=== PATIENT | female | born 1955 | race Caucasian/White ===

== ENCOUNTER 2020-02-28 07:13 | Outpatient (REF) | payer MEDICARE, MEDICAID, SELFPAY ==
[2020-02-28 12:03] LABS: Alanine Aminotransferase 21 U/L (0-31); Alkaline Phosphatase 49 U/L (39-117); Anion Gap 18 (12-20); Aspartate Amino Transferase 24 U/L (5-31); Bilirubin Total 0.8 mg/dL (0.0-1.0); Blood Urea Nitrogen 24 mg/dL (9-16); Calcium 9.6 mg/dL (8.4-10.2); Carbon Dioxide 27 mmol/L (22-29); Chloride 99 mmol/L (96-108); Cholesterol 221 mg/dL; Estimated Glomerular Filt Rate > 60; Glucose Fasting 117 mg/dL (60-99); HDL Cholesterol 104 mg/dL; LDL Cholesterol Calculated 96 mg/dl; Potassium 3.7 mmol/l (3.3-5.1); Sodium 140 mmol/L (135-145); Total Protein 7.9 g/dL (6.5-8.0); Triglycerides 109 mg/dL
[2020-02-28 12:13] LABS: Vitamin D 25-OH Total 41.6 ng/mL (>30)
== END 2020-02-28 07:14 | disposition home or self-care (01) ==
LOC: HO.HMGCLDS 07:13
PROVIDERS: PCP Internal Medicine; Visit Provider Internal Medicine
DX: I10 Essential (primary) hypertension (principal); E78.5 Hyperlipidemia, unspecified; Z78.0 Asymptomatic menopausal state
CPT/HCPCS: 36415; 80053; 80061; 82306

== ENCOUNTER 2020-03-28 09:12 | Outpatient (REF) | payer MEDICARE, MEDICAID, SELFPAY ==
--- NOTE | ~2020-03-28 | MM_ITS ---
EXAMINATION: BONE DENSITOMETRY CLINICAL INDICATION: Asymptomatic menopausal state. COMPARISON: Baseline BD dated 10/20/2017. TECHNIQUE: Using a [employer] DXA System (software version: 13.1) manufactured by [employer], dual-energy x-ray absorptiometry was performed of the lumbar spine and left hip. The images are of good technical quality. Summary results are attached. FINDINGS: AP SPINE L1-L2 (excluding L3 and L4): The data of L1-L4 has been changed to exclude the L3 and L4 vertebral bodies, because degenerative changes at this level may cause overestimation of lumbar spine density. Current: BMD 0.979 g/cm2, Z-score 0.8, T-score -1.6, osteopenia, 2.9% decrease from baseline (<5% change is not significant). Baseline: BMD 1.008 g/cm2. LEFT FEMUR, NECK: Current: BMD 0.632 g/cm2, Z-score -0.9, T-score -2.9, osteoporosis. Baseline: BMD 0.705 g/cm2. LEFT FEMUR, TOTAL: Current: BMD 0.684 g/cm2, Z-score -0.8, T-score -2.6, osteoporosis, 5.8% decrease from baseline (<5% change is not significant). Baseline: BMD 0.726 g/cm2. IDENTIFIED RISK FACTORS: Family history (parental hip fracture), tobacco use (current smoker), history of fracture (adult). Early menopause, secondary osteoporosis. HISTORY OF FRACTURE: Pelvis. Elbow/forearm/wrist. Humerus/shoulder. MEDICATIONS: Calcium supplements or multivitamin, vitamin D. MM/XR DEXA axial skeleton IMPRESSION: 1. DIAGNOSIS: Osteoporosis based on the lowest T-score value of -2.9 in the femoral neck applying World Health Organization criteria. 2. 10-YEAR FRACTURE RISK PREDICTION, FRAX: Major osteoporotic fracture (clinical spine, forearm, hip or shoulder) 37.3%. Hip fracture 12.5%. 3. Treatment Recommendations: NOF guidelines recommend consideration for treatment in postmenopausal women and men age 50 and older presenting with the following: -A hip or vertebral (clinical or morphometric) fracture. -T-score less than or equal to -2.5 at the femoral neck or spine after appropriate evaluation to exclude secondary causes. -Low bone mass at the hip or spine and a 10-year fracture probability by FRAX of greater than or equal to 3% for hip fracture or greater than or equal to 20% for major osteoporotic fracture based on the [place] adapted WHO algorithm. 4. Other Recommendations: All treatment decisions require clinical judgment and consideration of individual patient factors, including patient preferences, comorbidities, previous drug use, risk factors not captured in the FRAX model (e.g. frailty, falls, vitamin D deficiency, increased bone turnover, interval significant decline in bone density) and possible under or overestimation of fracture risk by FRAX. Additional medical evaluation for secondary cause of low bone mineral density may be appropriate. FUTURE SCAN RECOMMENDATION: People with diagnosed cases of osteoporosis or at high risk for fracture should have regular bone mineral density tests. For patients eligible for Medicare, routine testing is allowed once every 2 years. The testing frequency can be increased to one year for patients who have rapidly progressing disease, those who are receiving or discontinuing medical therapy to restore bone mass, or have additional risk factors.
== END 2020-03-28 09:13 | disposition home or self-care (01) ==
LOC: HO.MAMMO 09:12
PROVIDERS: PCP Internal Medicine; Visit Provider Internal Medicine
DX: M85.89 Other specified disorders of bone density and structure, multiple sites (principal); Z78.0 Asymptomatic menopausal state; F17.200 Nicotine dependence, unspecified, uncomplicated
CPT/HCPCS: 77080

== ENCOUNTER 2020-09-15 08:29 | Outpatient (REF) | payer MEDICARE, MEDICAID, SELFPAY ==
[2020-09-15 11:17] LABS: MANUAL DIFF FLAG NO
[2020-09-15 11:31] LABS: Basophils Absolute Auto 0.1 X10*3/uL (0.0-0.2); Basophils Percent Auto 1.2 % (0-2); Eosinophils Absolute Auto 0.2 X10*3/uL (0.0-0.4); Eosinophils Percent Auto 2.3 % (0-4); Hematocrit 41.5 % (37-47); Hemoglobin 12.7 g/dl (12.0-16.0); Imm Gran Abs Auto 0.02 X10*3/uL (0.00-0.03); Imm Gran Pct Auto 0.3 % (0.0-0.4); Lymphocytes Absolute Auto 1.7 X10*3/uL (1.2-4.9); Lymphocytes Percent Auto 23.6 % (20-40); Mean Corpuscular HGB Conc 30.6 g/dl (31.0-35.0); Mean Corpuscular Hemoglobin 26.7 pg (27.0-33.0); Mean Corpuscular Volume 87.4 fL (80-98); Mean Platelet Volume 9.1 fL (9.4-12.3); Monocytes Absolute Auto 0.6 X10*3/uL (0.1-1.2); Monocytes Percent Auto 8.5 % (2-11); Neutrophils Absolute Auto 4.7 X10*3/uL (2.0-8.3); Neutrophils Percent Auto 64.1 % (45-73); Platelet Count 364 X10*3/uL (160-400); Red Blood Count 4.75 X10*6/uL (4.20-5.50); Red Cell Distribution Width 14.5 % (11.0-16.0); White Blood Count 7.3 X10*3/uL (4.8-10.8)
[2020-09-15 11:33] LABS: Estimated Average Glucose 117 mg/dL; Hemoglobin A1c % 5.7 %
[2020-09-15 12:00] LABS: Vitamin D 25-OH Total 34.7 ng/mL (>30)
[2020-09-15 12:31] LABS: Alanine Aminotransferase 18 U/L (0-31); Albumin Level 4.5 g/dL (3.5-5.0); Alkaline Phosphatase 94 U/L (39-117); Anion Gap 17 (12-20); Aspartate Amino Transferase 21 U/L (5-31); Bilirubin Total 0.4 mg/dL (0.0-1.0); Blood Urea Nitrogen 18 mg/dL (9-16); Calcium 9.6 mg/dL (8.4-10.2); Carbon Dioxide 27 mmol/L (22-29); Chloride 103 mmol/L (96-108); Cholesterol 218 mg/dL; Estimated Glomerular Filt Rate > 60; Glucose Fasting 116 mg/dL (60-99); HDL Cholesterol 102 mg/dL; LDL Cholesterol Calculated 103 mg/dl; Potassium 4.9 mmol/L (3.3-5.1); Sodium 142 mmol/L (135-145); Total Protein 7.9 g/dL (6.5-8.0); Triglycerides 69 mg/dL
== END 2020-09-15 08:30 | disposition home or self-care (01) ==
LOC: HO.HMGCLDS 08:29
PROVIDERS: PCP Internal Medicine; Visit Provider Internal Medicine
DX: E78.5 Hyperlipidemia, unspecified (principal); G25.81 Restless legs syndrome; I10 Essential (primary) hypertension; R73.01 Impaired fasting glucose; M85.89 Other specified disorders of bone density and structure, multiple sites; Z78.0 Asymptomatic menopausal state
CPT/HCPCS: 36415; 80053; 80061; 82306; 83036; 85025

== ENCOUNTER → 2020-10-01 08:18 | Outpatient (BNVA) | payer MEDICARE, MEDICAID, SELFPAY | PROVIDERS: PCP Internal Medicine; Visit Provider Internal Medicine | DX: M81.0 Age-related osteoporosis without current pathological fracture (principal); J44.9 Chronic obstructive pulmonary disease, unspecified; I10 Essential (primary) hypertension; E55.9 Vitamin D deficiency, unspecified; R73.01 Impaired fasting glucose; F17.210 Nicotine dependence, cigarettes, uncomplicated; Z79.899 Other long term (current) drug therapy | CPT/HCPCS: 99202 ==

== ENCOUNTER 2021-01-29 09:03 | Outpatient (REF) | payer MEDICAID, SELFPAY ==
--- NOTE | ~2021-01-29 | XR_ITS ---
EXAMINATION: XR SHOULDER, RIGHT CLINICAL INFORMATION: Shoulder pain COMPARISON: None TECHNIQUE: Right shoulder is imaged in 3 views. FINDINGS: There is no fracture or dislocation or destructive process. The glenohumeral joint is unremarkable. There are mild degenerative changes acromioclavicular joint. The acromioclavicular alignment is normal. There are no visible rotator cuff calcifications. Again, hardware is noted in the lower cervical spine with prior rodding extending beyond field of view. Since prior radiographs 2016 there are postsurgical changes medial apical right hemithorax with chain conrado and benign appearing smooth pleural thickening right apex. XR/XR shoulder RT min 2V IMPRESSION: 1. Mild degenerative changes acromioclavicular joint. 2. No visible rotator cuff calcifications.
== END 2021-01-29 09:04 | disposition home or self-care (01) ==
LOC: HO.HOSX 09:03
PROVIDERS: Visit Provider Orthopaedic Surgery
DX: M75.41 Impingement syndrome of right shoulder (principal)
CPT/HCPCS: 20610; 73030; 99212; J1100

== ENCOUNTER → 2021-04-06 08:18 | Outpatient (BNVA) | payer MEDICAID, SELFPAY | PROVIDERS: PCP Internal Medicine; Visit Provider Internal Medicine ==

== ENCOUNTER 2021-04-08 08:36 | Outpatient (REF) | payer MEDICAID, SELFPAY ==
[2021-04-08 10:37] LABS: Alanine Aminotransferase 12 U/L (0-31); Albumin Level 4.5 g/dL (3.5-5.0); Alkaline Phosphatase 56 U/L (39-117); Anion Gap 16 (12-20); Aspartate Amino Transferase 19 U/L (5-31); Bilirubin Total 0.5 mg/dL (0.0-1.0); Blood Urea Nitrogen 22 mg/dL (9-16); Calcium 9.7 mg/dL (8.4-10.2); Carbon Dioxide 24 mmol/L (22-29); Chloride 107 mmol/L (96-108); Cholesterol 235 mg/dL; Estimated Glomerular Filt Rate > 60; Glucose Random 110 mg/dL (60-115); HDL Cholesterol 90 mg/dL; LDL Cholesterol Calculated 127 mg/dl; Phosphorus 3.6 mg/dL (2.7-4.5); Potassium 4.3 mmol/L (3.3-5.1); Sodium 143 mmol/L (135-145); Total Protein 7.6 g/dL (6.5-8.0); Triglycerides 94 mg/dL
[2021-04-08 10:38] LABS: Thyroid Stimulating Hormone 1.01 uIU/mL (0.32-4.0)
[2021-04-08 10:46] LABS: Free T4 (Free Thyroxine) 1.13 ng/dL (0.71-1.85); Vitamin D 25-OH Total 32.9 ng/mL (>30)
[2021-04-09 14:33] LABS: Calcium (PTHI) 9.7 mg/dL (8.6-10.4); PTHI 44 pg/mL (14-64)
[2021-04-09 14:56] LABS: Calcium, Ionized 4.8 mg/dL (4.8-5.6)
[2021-04-11 17:15] LABS: Alkaline Phosphatase Bone 7.9 mcg/L (5.6-29.0)
[2021-04-13 13:27] LABS: Prot Elec - Albumin 4.5 g/dL (3.8-4.8); Prot Elec - Alpha1 0.3 g/dL (0.2-0.3); Prot Elec - Alpha2 0.8 g/dL (0.5-0.9); Prot Elec - Beta 1 0.5 g/dL (0.4-0.6); Prot Elec - Beta 2 0.3 g/dL (0.2-0.5); Prot Elec - Gamma 1.1 g/dL (0.8-1.7); Prot Elec - Total Protein 7.6 g/dL (6.1-8.1)
== END 2021-04-08 08:37 | disposition home or self-care (01) ==
LOC: HO.LAB 08:36
PROVIDERS: PCP Internal Medicine; Visit Provider Internal Medicine
DX: M81.0 Age-related osteoporosis without current pathological fracture (principal); E78.5 Hyperlipidemia, unspecified; E55.9 Vitamin D deficiency, unspecified
CPT/HCPCS: 36415; 80053; 80061; 82306; 82330; 83970; 84075; 84100; 84165; 84439; 84443

== ENCOUNTER 2021-05-12 11:26 | Outpatient (REF) | payer MEDICAID, SELFPAY ==
--- NOTE | ~2021-05-12 | MM_ITS ---
EXAMINATION: MM SCREENING DIGITAL BREAST TOMOSYNTHESIS, BILATERAL CLINICAL INFORMATION: Screening. Asymptomatic. The lifetime risk of breast cancer based on the Tyrer-Cuzick Model is 3%. COMPARISON: Mammography: 11/07/2019, 11/01/2018, 10/20/2017, 09/10/2016 TECHNIQUE: Digital breast tomosynthesis is performed in both the craniocaudal and mediolateral oblique views along with computer-aided detection (CAD). Synthesized 2D images are generated from the tomosynthesis. FINDINGS: The breasts are heterogeneously dense, which may obscure small masses (ACR BI-RADS breast composition Category c). Parenchymal pattern is similar to prior studies. Some scattered asymmetries are stable. There is no developing density or significant mass or abnormal calcifications. The axilla are unremarkable. The skin contours are smooth. No significant changes. MM/MM tomosynthesis screening BI IMPRESSION: No mammographic evidence of malignancy. ASSESSMENT: BI-RADS 2: Benign RECOMMENDATION: Routine annual mammography screening. This patient's information was entered into a reminder system with a target due date for their next mammogram.
== END 2021-05-12 11:27 | disposition home or self-care (01) ==
LOC: HO.MAMMO 11:26
PROVIDERS: PCP Internal Medicine; Visit Provider Internal Medicine
DX: Z12.31 Encounter for screening mammogram for malignant neoplasm of breast (principal)
CPT/HCPCS: 77063; 77067

== ENCOUNTER 2021-07-20 09:05 | Outpatient (REF) | payer MEDICAID, SELFPAY ==
[2021-07-20 13:06] LABS: Alanine Aminotransferase 15 U/L (0-31); Albumin Level 4.5 g/dL (3.5-5.0); Alkaline Phosphatase 60 U/L (39-117); Anion Gap 17 (12-20); Aspartate Amino Transferase 19 U/L (5-31); Bilirubin Total 0.8 mg/dL (0.0-1.0); Blood Urea Nitrogen 18 mg/dL (9-16); Calcium 9.5 mg/dL (8.4-10.2); Carbon Dioxide 23 mmol/L (22-29); Chloride 105 mmol/L (96-108); Estimated Glomerular Filt Rate > 60; Glucose Random 108 mg/dL (60-115); Phosphorus 3.8 mg/dL (2.7-4.5); Potassium 4.8 mmol/L (3.3-5.1); Sodium 140 mmol/L (135-145); Total Protein 7.7 g/dL (6.5-8.0)
[2021-07-20 13:32] LABS: Vitamin D 25-OH Total 32.4 ng/mL (>30)
[2021-07-21 14:16] LABS: Calcium (PTHI) 9.8 mg/dL (8.6-10.4); PTHI 46 pg/mL (16-77)
== END 2021-07-20 09:06 | disposition home or self-care (01) ==
LOC: HO.HMGCLDS 09:05
PROVIDERS: PCP Internal Medicine; Visit Provider Internal Medicine
DX: E55.9 Vitamin D deficiency, unspecified (principal); M81.0 Age-related osteoporosis without current pathological fracture
CPT/HCPCS: 36415; 80053; 82306; 83970; 84100

== ENCOUNTER 2021-07-21 08:53 | Outpatient (REF) | payer MEDICAID, SELFPAY ==
[2021-07-21 12:53] LABS: Total Volume 24 Hour Urine 350 mL
[2021-07-21 13:10] LABS: Creatinine, 24Hr Urine 0.2 G/Day (1.0-2.0); Creatinine, mg/dL 49.84
[2021-07-23 18:17] LABS: Calcium, 24 Hr Urine 3 mg/24 h; Calcium/Creatinine Ratio 16 mg/g creat (30-275); Creatinine 24Hr Urine 0.18 g/24 h (0.50-2.15)
[2021-07-26 06:16] LABS: N-Telopeptide 44 (see note); NTXCreaRU 212 mg/dL (20-275)
== END 2021-07-21 08:54 | disposition home or self-care (01) ==
LOC: HO.HMGCLNP 08:53
PROVIDERS: Visit Provider Internal Medicine
DX: M81.0 Age-related osteoporosis without current pathological fracture (principal)
CPT/HCPCS: 82340; 82523; 82570

== ENCOUNTER 2021-09-28 08:17 | Outpatient (REF) | payer MEDICAID, SELFPAY ==
[2021-09-28 12:15] LABS: Total Volume 24 Hour Urine 1150 mL
[2021-09-28 12:51] LABS: Creatinine, 24Hr Urine 0.6 G/Day (1.0-2.0); Creatinine, mg/dL 53.42
[2021-09-30 18:06] LABS: Calcium, 24 Hr Urine 52 mg/24 h; Calcium/Creatinine Ratio 83 mg/g creat (30-275); Creatinine 24Hr Urine 0.62 g/24 h (0.50-2.15)
[2021-10-05 20:16] LABS: N-Telopeptide 35 (see note); NTXCreaRU 101 mg/dL (20-275)
== END 2021-09-28 08:18 | disposition home or self-care (01) ==
LOC: HO.HMGCLDS 08:17
PROVIDERS: PCP Internal Medicine; Visit Provider Internal Medicine
DX: M81.0 Age-related osteoporosis without current pathological fracture (principal)
CPT/HCPCS: 82340; 82523; 82570

== ENCOUNTER 2022-02-25 09:33 | Outpatient (REF) | payer MEDICAID, SELFPAY ==
[2022-02-25 11:34] LABS: Alanine Aminotransferase 12 U/L (0-31); Albumin Level 4.5 g/dL (3.5-5.0); Alkaline Phosphatase 53 U/L (39-117); Anion Gap 11 (12-20); Aspartate Amino Transferase 19 U/L (5-31); Bilirubin Total 0.7 mg/dL (0.0-1.0); Blood Urea Nitrogen 24 mg/dL (9-16); Calcium 9.4 mg/dL (8.4-10.2); Carbon Dioxide 27 mmol/L (22-29); Chloride 107 mmol/L (96-108); Cholesterol 232 mg/dL; Estimated Glomerular Filt Rate > 60; Glucose Fasting 106 mg/dL (60-99); Glucose Random 107 mg/dL (60-115); HDL Cholesterol 94 mg/dL; LDL Cholesterol Calculated 119 mg/dl; Phosphorus 3.5 mg/dL (2.7-4.5); Potassium 4.4 mmol/L (3.3-5.1); Sodium 141 mmol/L (135-145); Total Protein 7.4 g/dL (6.5-8.0); Triglycerides 97 mg/dL
[2022-02-25 11:49] LABS: Estimated Average Glucose 117 mg/dL; Hemoglobin A1c % 5.7 %
[2022-02-26 10:48] LABS: Calcium (PTHI) 9.3 mg/dL (8.6-10.4); PTHI 49 pg/mL (16-77)
[2022-03-01 23:39] LABS: Alkaline Phosphatase Bone 7.6 mcg/L (5.6-29.0)
== END 2022-02-25 09:34 | disposition home or self-care (01) ==
LOC: HO.HMGCLDS 09:33
PROVIDERS: PCP Internal Medicine; Visit Provider Internal Medicine
DX: E78.5 Hyperlipidemia, unspecified (principal); R73.01 Impaired fasting glucose; M81.0 Age-related osteoporosis without current pathological fracture; E55.9 Vitamin D deficiency, unspecified; I10 Essential (primary) hypertension
CPT/HCPCS: 36415; 80048; 80053; 80061; 82306; 83036; 83970; 84075; 84100

== ENCOUNTER 2022-03-17 09:33 | Outpatient (AMB) | payer MEDICAID, SELFPAY ==
--- NOTE | 2022-03-17 09:45 | MHC.PC.OV ---
Vital Signs 03/17/22 09:46 Height 4 ft 11 in Weight 89 lb 4 oz BMI 18.0 BP 130/76 Blood Pressure Location Lt brachial Position Sitting Pulse 71 Pulse Source Pulse Oximeter Pulse Oximetry (%) 98 Oxygen Delivery Method Room Air Intake Visit Reasons: Annual Physcial Intake Note: Pt is here today for her PE Allergies No Known Allergies Allergy (Verified 03/17/22 10:29) Medication List - Last Reconciled 03/17/22 by Donna Romero MD albuterol sulfate 90 mcg/actuation inhalation atorvastatin 10 mg PO DAILY cholecalciferol (vitamin D3) 25 mcg PO DAILY pxfnwlfnpjv-odyhmwqiv-nisuxvto 100-62.5-25 mcg inhalation meloxicam 15 mg PO DAILY PRN omeprazole mg PO paroxetine HCl 40 mg PO QAM pramipexole 0.25 mg PO BEDTIME Tobacco use date assessed: 03/17/22 Fall risk assessment: 2 + Falls in past year Last assessed Fall Risk: 03/17/22 [facility] Medical History (Updated 03/17/22 @ 11:01 by Donna Romero MD) Cigarette smoker motivated to quit Colon cancer screening COPD (chronic obstructive pulmonary disease) Dyslipidemia Elbow pain, right Essential hypertension Fall Generalized anxiety disorder Hiatal hernia Impaired fasting glucose Leg cramps Menopause Osteopenia of multiple sites Osteoporosis Polyarthralgia Restless leg syndrome Shoulder pain, right Squamous cell carcinoma Vitamin D deficiency Surgical History History of fusion of cervical spine History of hernia repair S/P partial lobectomy of lung Family History Father Esophageal cancer Mother Cirrhosis HTN (hypertension) Diabetes mellitus Liver problem Brother Mental health disorder Daughter No problems noted. Social History Housing: House Alcohol intake: never Patient Tobacco Use Status: Never used Tobacco Years Smoked: 53 yrs e-Cigarette/Vaping Use: Never Used service: No Current occupational status: disabled Cognitive needs: No Hearing needs: No Vision needs: No Questionnaire PHQ-9 Over the last 2 weeks, how often have you been bothered by any of the following problems? 1. Little interest or pleasure in doing things: not at all 2. Feeling down, depressed, or hopeless: several days 3. Trouble falling or staying asleep, or sleeping too much: nearly every day 4. Feeling tired or having little energy: several days 5. Poor appetite or overeating: nearly every day 6. Feeling bad about yourself - or that you are a failure or have let yourself or your family down: not at all 7. Trouble concentrating on things, such as reading the newspaper or watching television: not at all 8. Moving or speaking so slowly that other people could have noticed. Or the opposite - being so fidgety or restless that you have been moving around a lot more than usual: several days 9. Thoughts that you would be better off or of hurting yourself in some way: not at all Total score: 9 Depression Screening Interpretation: Positive (Declines referral for counseling) Depression Screening Follow-up: Existing condition and In treatment 85371 - PHQ-9 Billing: Yes Source: Developed by Drs. Alexi Yadav, Brenda Barahona, Alonzo Smiley and colleagues, with an educational livia from [employer]. Thrive Questionnaire Declines Thrive assessment: No Date Thrive assessed: 03/17/22 I am a: Patient What is your living situation today?: I have a steady place to live Within the past 12 months, did the food you bought not last and you didn't have the money to get more?: Never true Within the past 12 months, did you worry whether your food would run out before you got money to buy more?: Never true Do you have trouble paying for medicines?: No Do you have trouble getting transportation to medical appointments?: No Do you have trouble paying your heating and electricity bill?: No Do you have trouble taking care of your child, family member or friend?: No Do you have trouble with day-to-day activities such as bathing, preparing meals, shopping, managing finances, etc.?: Yes Are you currently unemployed and looking for a job?: No Are you interested in more education?: No JNEAE-7 AMB Questionnaire JENAE-7 Date JENAE - 7 assessed: 03/17/22 Feeling nervous, anxious, or on edge: 1 = Several days Not being able to stop or control worryin = Not at all Worrying too much about different things: 1 = Several days Trouble relaxin = Not at all Being so restless that it is hard to sit still: 0 = Not at all Becoming easily annoyed or irritable: 1 = Several days Feeling afraid as if something awful might happen: 3 = Nearly every day Total JENAE-7 score (0-4 normal; 5-9 mild; 10-14 moderate; 15-21 severe): 6 Source: Developed by Drs. Alexi Yadav, Brenda Barahona, Alonzo Smiley and colleagues, with an educational livia from [employer]. JENAE-7 Assessment Billing JENAE-7 Assessment Tool: JENAE-7 Assessment 07408 Physical exam (Primary Care) Vital Signs: Last Vital Signs Pulse 71 03/17/22 09:46 BP 130/76 03/17/22 09:46 Pulse Ox 98 03/17/22 09:46 Oxygen Delivery Method Room Air 03/17/22 09:46 BMI result Body Mass Index 18.0 Tobacco/Smoking Status: Tobacco use Status Tobacco use date assessed 03/17/22 03/17/22 09:54 Patient Tobacco Use Status Never used Tobacco 03/17/22 09:54 e-Cigarette/Vaping Use Never Used 03/17/22 09:54 PHQ-9: PHQ-9 Score PHQ-9: Total score 9 03/17/22 11:05 Depression Screening Interpretation: Positive (Declines referral for counseling) Depression Screening Follow-up: Existing condition and In treatment Thrive Assessment: Date of Thrive Assessment Date Thrive assessed 03/17/22 03/17/22 09:54 Cardio Other: S1-S2 present regular rate and rhythm 1+ dorsalis pedis pulse and popliteal tibial pulse bilaterally Bruits: no abdominal aortic bruits GI Inspection: Yes normal to inspection Palpation (GI): No Abdominal aortic bruit present, Soft to palpation, nontender, no guarding and no masses Extrem Other: Hammertoes noted in both feet, thick yellowish discolored toenails in both feet Immunizations pneumoc 20-kenny conj-dip cr(PF) Performing Provider: Donna Romero MD Administered by: Valeria Heller CMA on 03/17/22 11:12 Dose Route Admin Location Lot Number Expiration Date NDC Mucker Operator 0.5 mL IM Left Deltoid [id number] 08/06/22 8487-0465-41 VoAPPsETH/PFIZER VIS Given Date VIS Provided VIS Publication Date 03/17/22 Single Vaccine 21 Eligibility Eligibility Date Funding Source Not [facility] Eligible 03/17/22 Private Assessment and Plan Assessment & Plan (1) Colon cancer screening: Code(s): Z12.11 - Encounter for screening for malignant neoplasm of colon (2) Hiatal hernia: Code(s): K44.9 - Diaphragmatic hernia without obstruction or gangrene (3) Generalized anxiety disorder: Code(s): F41.1 - Generalized anxiety disorder (4) Polyarthralgia: Code(s): M25.50 - Pain in unspecified joint (5) Osteoporosis: Code(s): M81.0 - Age-related osteoporosis without current pathological fracture (6) Restless leg syndrome: Code(s): G25.81 - Restless legs syndrome (7) COPD (chronic obstructive pulmonary disease): Code(s): J44.9 - Chronic obstructive pulmonary disease, unspecified (8) Essential hypertension: Code(s): I10 - Essential (primary) hypertension (9) Impaired fasting glucose: Code(s): R73.01 - Impaired fasting glucose (10) Dyslipidemia: Code(s): E78.5 - Hyperlipidemia, unspecified (11) Annual visit for general adult medical examination with abnormal findings: Code(s): Z00.01 - Encounter for general adult medical examination with abnormal findings Orders: Orders Pneumococcal 20 Immunization Today Z23 - Encounter for immunization Referrals Gastroenterology Referral Z12.11 - Encounter for screening for malignant neoplasm of colon Medications: Refilled nicotine 1 patch transdermal Q24H 28 ea 0RF F17.210 - Nicotine dependence, cigarettes, uncomplicated Coding Level of Care Code Est Pt Prev Care 40-64y(15734) Diagnoses Colon cancer screening Z12.11 Hiatal hernia K44.9 Generalized anxiety disorder F41.1 Polyarthralgia M25.50 Osteoporosis M81.0 Restless leg syndrome G25.81 COPD (chronic obstructive pulmonary disease) J44.9 Essential hypertension I10 Impaired fasting glucose R73.01 Dyslipidemia E78.5 Annual visit for general adult medical examination with abnormal findings Z00.01 Additional Codes JENAE-7 Assessment Billing - JENAE-7 Assessment Tool: JENAE-7 Assessment 38013 ([id number])
[2022-03-17 09:46] VITALS: BP 130/76; PULSE 71; O2SAT 98; BMI 18.0
== END 2022-03-17 10:28 | disposition home or self-care (01) ==
LOC: HO.HMGC 09:33
PROVIDERS: PCP Internal Medicine; Visit Provider Internal Medicine
DX: Z12.11 Encounter for screening for malignant neoplasm of colon (principal); K44.9 Diaphragmatic hernia without obstruction or gangrene; F41.1 Generalized anxiety disorder; M25.50 Pain in unspecified joint; M81.0 Age-related osteoporosis without current pathological fracture; G25.81 Restless legs syndrome; J44.9 Chronic obstructive pulmonary disease, unspecified; I10 Essential (primary) hypertension; R73.01 Impaired fasting glucose; E78.5 Hyperlipidemia, unspecified; Z00.01 Encounter for general adult medical examination with abnormal findings
CPT/HCPCS: 99499

== ENCOUNTER → 2022-04-28 10:15 | Outpatient (BNVA) | payer MEDICAID, SELFPAY | PROVIDERS: PCP Internal Medicine; Visit Provider Nurse Practitioner Family | DX: Z12.11 Encounter for screening for malignant neoplasm of colon (principal) | CPT/HCPCS: 99202 ==

== ENCOUNTER 2022-04-29 09:48 | Outpatient (AMB) | payer MEDICAID, SELFPAY ==
--- NOTE | 2022-04-29 10:51 | MHC.PC.OV ---
Vital Signs 04/29/22 10:52 Height 4 ft 11 in Weight 92 lb 8 oz BMI 18.6 BP 120/76 Blood Pressure Location Lt brachial Position Sitting Pulse 65 Pulse Source Pulse Oximeter Pulse Oximetry (%) 99 Oxygen Delivery Method Room Air Intake Visit Reasons: Pain in arm Intake Note: Patient here due to having severe pain in arm, starts from shoulder and goes down arm and gets some tingling in fingers. she also would like to increase nicotine patch. Allergies No Known Allergies Allergy (Verified 11/15/22 02:07) Medication List - Last Reconciled 11/15/22 by Donna Romero MD albuterol sulfate 90 mcg/actuation inhalation atorvastatin 10 mg PO DAILY cholecalciferol (vitamin D3) 25 mcg PO DAILY jhcfiwsrhlk-dwsgvlhya-czfkcefh 100-62.5-25 mcg inhalation nabumetone 500 mg PO BID PRN nicotine 1 patch transdermal Q24H omeprazole mg PO paroxetine HCl 40 mg PO QAM pramipexole 0.25 mg PO BEDTIME Tobacco use date assessed: 03/17/22 Fall risk assessment: 1 Fall in past year Last assessed Fall Risk: 04/29/22 HPI HPI Comments History of Present Illness Details 67-year-old lady here today complaining of recurrent pain in right shoulder, going down right arm, accompanied by numbness and tingling. This has been present now for the last several weeks and is not getting any better. Denies any history of trauma or heavy exertion She also is trying to quit smoking, has please nicotine patch in the past, would like to get another refill prescription. Currently still smoking but now down to least 1-2 cigarettes a day. [facility] Medical History Tubular adenoma Chronic right shoulder pain Hiatal hernia Colon cancer screening Generalized anxiety disorder Elbow pain, right Shoulder pain, right Polyarthralgia Leg cramps Vitamin D deficiency Squamous cell carcinoma Osteoporosis Menopause Osteopenia of multiple sites Cigarette smoker motivated to quit Restless leg syndrome COPD (chronic obstructive pulmonary disease) Impaired fasting glucose Fall Dyslipidemia Essential hypertension Surgical History Hx of colonoscopy S/P partial lobectomy of lung History of fusion of cervical spine History of hernia repair Family History Father Esophageal cancer Mother Cirrhosis HTN (hypertension) Diabetes mellitus Liver problem Brother Mental health disorder Daughter No problems noted. Social History Housing: House Alcohol intake: never Patient Tobacco Use Status: Current everyday Tobacco user Tobacco use type: Cigarette Cigarettes Per Day: 1 Years Smoked: 50 e-Cigarette/Vaping Use: Never Used service: No Current occupational status: disabled Current occupation: right hand dominant Cognitive needs: No Hearing needs: No Vision needs: No Questionnaire Thrive Questionnaire Date Thrive assessed: 03/17/22 AUDIT C Alcohol Use Questionnaire (AUDIT-C) 1. How often do you have a drink containing alcohol?: Never 3. How often do you have six or more drinks on one occasion?: Never Total Score: 0 JENAE-7 AMB Questionnaire JENAE-7 Date JENAE - 7 assessed: 03/17/22 Source: Developed by Drs. Alexi Yadav, Brenda Barahona, Alonzo Smiley and colleagues, with an educational livia from [employer]. Review of Systems Const Reports no additional complaints ENT Reports no additional complaints Card Denies chest pain at rest, Denies chest pain with activity, Denies rapid heart rate, Denies lightheadedness, Denies dyspnea and Denies dyspnea on exertion Resp Denies cough, Denies dyspnea and Denies dyspnea on exertion GI Reports no additional complaints Musc Reports as per HPI Neuro Reports as per HPI Physical exam (Primary Care) Vital Signs: Last Vital Signs Pulse 65 04/29/22 10:52 BP 120/76 04/29/22 10:52 Pulse Ox 99 04/29/22 10:52 Oxygen Delivery Method Room Air 04/29/22 10:52 BMI result Body Mass Index 18.6 Tobacco/Smoking Status: Tobacco use Status Tobacco use date assessed 03/17/22 04/29/22 10:57 Patient Tobacco Use Status Never used Tobacco 04/29/22 10:57 e-Cigarette/Vaping Use Never Used 04/29/22 10:57 Thrive Assessment: Date of Thrive Assessment Date Thrive assessed 03/17/22 04/29/22 10:57 Const Other: Alert oriented x3, no acute cardiorespiratory distress noted ambulatory normal gait Orientation/consciousness: patient oriented x3 HENMT Face and sinus: Yes face symmetric Mouth: Normal oral and palatal mucosa present, tongue normal and moist mucous membranes Neck Other: Supple with no lymphadenopathy, thyroid gland nonpalpable Resp Auscultation: clear to auscultation bilaterally Cardio Other: S1-S2 present regular rate and rhythm 1+ dorsalis pedis pulse and popliteal tibial pulse bilaterally GI Inspection: Yes normal to inspection Palpation (GI): Soft to palpation, nontender, no guarding and no masses Neuro General: patient oriented x3, tone normal, moves all extremities, Normal light touch and pain sensation and no focal motor deficits Extrem Other: No gross bone deformity or joint swelling seen, has slight tenderness on palpation over right posterior shoulder Assessment and Plan Assessment & Plan (1) Chronic right shoulder pain: Code(s): M25.511 - Pain in right shoulder; G89.29 - Other chronic pain Plan: Ordered x-ray of right shoulder and refer to orthopedics for further evaluation management, (2) Cigarette smoker motivated to quit: Code(s): F17.210 - Nicotine dependence, cigarettes, uncomplicated Plan: Prescription sent for nicotine patch 24 mg, to apply as directed to affected area, rotate sites, remove at night, do not smoke when using patch. Schedule follow-up visit in 4 weeks Orders: Orders XR shoulder RT min 2V 04/29/22 M25.511 - Pain in right shoulder, G89.29 - Other chronic pain Referrals Orthopedics Referral M25.511 - Pain in right shoulder, G89.29 - Other chronic pain Medications: Changed From nicotine 1 patch transdermal Q24H 28 ea 0RF F17.210 - Nicotine dependence, cigarettes, uncomplicated To nicotine 1 patch transdermal Q24H 28 ea 0RF F17.210 - Nicotine dependence, cigarettes, uncomplicated Coding Level of Care Code Est Pt Level 3 (04459) Diagnoses Chronic right shoulder pain M25.511; G89.29 Cigarette smoker motivated to quit F17.210
[2022-04-29 10:52] VITALS: BP 120/76; PULSE 65; O2SAT 99; BMI 18.6
== END 2022-04-29 11:35 | disposition home or self-care (01) ==
LOC: HO.HMGC 09:48
PROVIDERS: PCP Internal Medicine; Visit Provider Internal Medicine
DX: M25.511 Pain in right shoulder (principal); G89.29 Other chronic pain; F17.210 Nicotine dependence, cigarettes, uncomplicated
CPT/HCPCS: 99213

== ENCOUNTER 2022-04-29 11:35 | Outpatient (REF) | payer MEDICAID, SELFPAY ==
--- NOTE | ~2022-04-29 | XR_ITS ---
EXAMINATION: XR SHOULDER, RIGHT CLINICAL INFORMATION: Pain. COMPARISON: Right shoulder 01/29/2021. TECHNIQUE: AP external rotation, Grashey, scapular Y, and axillary views of the right shoulder. FINDINGS: The glenohumeral joint space is maintained normal. Mild loss of AC joint space with spurring is noted. No bony erosive changes. No acute fracture or dislocation. The soft tissues are normal. XR/XR shoulder RT min 2V IMPRESSION: Mild degenerative changes right AC joint. Findings are similar to previous study 01/29/2021.
== END 2022-04-29 11:36 | disposition home or self-care (01) ==
LOC: HO.HMGCX 11:35
PROVIDERS: PCP Internal Medicine; Visit Provider Internal Medicine
DX: M25.511 Pain in right shoulder (principal); G89.29 Other chronic pain
CPT/HCPCS: 73030

== ENCOUNTER → 2022-06-01 08:43 | Outpatient (BNVA) | payer MEDICAID, SELFPAY | PROVIDERS: PCP Internal Medicine; Visit Provider Physician Assistant | DX: M75.41 Impingement syndrome of right shoulder (principal) | CPT/HCPCS: 20610; 99212; J1040 ==

== ENCOUNTER 2022-06-26 10:07 | Outpatient (REF) | payer MEDICAID, SELFPAY ==
--- NOTE | ~2022-06-26 | MM_ITS ---
EXAMINATION: MM SCREENING DIGITAL BREAST TOMOSYNTHESIS, BILATERAL CLINICAL INFORMATION: Screening. Asymptomatic. Family history breast cancer, daughter. The lifetime risk of breast cancer based on the Tyrer-Cuzick Model is 5%. COMPARISON: Mammography: 05/12/2021, 11/07/2019, 11/01/2018 TECHNIQUE: Digital breast tomosynthesis is performed in both the craniocaudal and mediolateral oblique views along with computer-aided detection (CAD). Synthesized 2D images are generated from the tomosynthesis. FINDINGS: The breasts are heterogeneously dense, which may obscure small masses (ACR BI-RADS breast composition Category c). Breast is slightly smaller when compared with prior studies suggesting some interval weight loss. There are scattered minor stable bilateral asymmetries. No developing density or architectural abnormality. There are no significant masses, abnormal calcifications, or other abnormalities. The axilla and skin contours are unremarkable. MM/MM tomosynthesis screening BI IMPRESSION: No significant changes from prior exams. ASSESSMENT: BI-RADS 2: Benign RECOMMENDATION: -Probable weight loss from prior studies. This may be correlated with clinical history. -Routine annual mammography screening. This patient's information was entered into a reminder system with a target due date for their next mammogram.
== END 2022-06-26 10:08 | disposition home or self-care (01) ==
LOC: HO.MAMMO 10:07
PROVIDERS: PCP Internal Medicine; Visit Provider Internal Medicine
DX: Z12.31 Encounter for screening mammogram for malignant neoplasm of breast (principal)
CPT/HCPCS: 77063; 77067

== ENCOUNTER 2022-07-16 09:26 | Outpatient (AMB) | payer MEDICAID, SELFPAY ==
--- NOTE | 2022-07-16 10:09 | MHC.PC.OV ---
Vital Signs 07/16/22 10:14 Height 4 ft 11 in Weight 91 lb 8 oz BMI 18.5 BP 112/76 Blood Pressure Location Lt brachial Position Sitting Pulse 65 Pulse Source Pulse Oximeter Pulse Oximetry (%) 97 Oxygen Delivery Method Room Air Intake Visit Reasons: 4 weeks ffup smoking cessation Intake Note: Pt is here today for her 4 weeks f/u smoking cessation Allergies No Known Allergies Allergy (Verified 09/09/22 09:05) Medication List - Last Reconciled 07/16/22 by Donna Romero MD albuterol sulfate 90 mcg/actuation inhalation atorvastatin 10 mg PO DAILY bisacodyl (Dulcolax (bisacodyl)) 10 mg (2 x 5 mg) PO ONCE 1 day cholecalciferol (vitamin D3) 25 mcg PO DAILY jlhtjvnbnur-suptmrous-pnuqndkj 100-62.5-25 mcg inhalation meloxicam 15 mg PO DAILY PRN nicotine 1 patch transdermal Q24H omeprazole mg PO paroxetine HCl 40 mg PO QAM polyethylene glycol 3350 (Miralax) 238 grams PO ONCE pramipexole 0.25 mg PO BEDTIME Tobacco use date assessed: 07/16/22 Fall risk assessment: No Falls in past year Last assessed Fall Risk: 07/16/22 HPI 4 weeks ffup smoking cessation HPI Details 67-year-old lady here today for follow-up with regards to her smoking cessation currently on nicotine patch 21 mg daily. Tolerate medication well, has quit smoking, ready to go down on her dose of the nicotine patch . He also today for follow-up on her dyslipidemia currently on atorvastatin, has anxiety disorder stable controlled on paroxetine and has restless leg syndrome, controlled with pramipexole. Complains of recurrent pain in her right shoulder, no relief with meloxicam. No history of any injury. Pain is worse when doing overhead motion with her right arm. [facility] Medical History Chronic right shoulder pain Cigarette smoker motivated to quit Colon cancer screening COPD (chronic obstructive pulmonary disease) Dyslipidemia Elbow pain, right Essential hypertension Fall Generalized anxiety disorder Hiatal hernia Impaired fasting glucose Leg cramps Menopause Osteopenia of multiple sites Osteoporosis Polyarthralgia Restless leg syndrome Shoulder pain, right Squamous cell carcinoma Vitamin D deficiency Surgical History History of fusion of cervical spine History of hernia repair S/P partial lobectomy of lung Family History Father Esophageal cancer Mother Cirrhosis HTN (hypertension) Diabetes mellitus Liver problem Brother Mental health disorder Daughter No problems noted. Social History Housing: House Alcohol intake: never Patient Tobacco Use Status: Current someday Tobacco user Cigarettes Per Day: 1 Years Smoked: 53 yrs e-Cigarette/Vaping Use: Never Used service: No Current occupational status: disabled Current occupation: right hand dominant Cognitive needs: No Hearing needs: No Vision needs: No Questionnaire PHQ-9 Over the last 2 weeks, how often have you been bothered by any of the following problems? 1. Little interest or pleasure in doing things: not at all 2. Feeling down, depressed, or hopeless: several days 3. Trouble falling or staying asleep, or sleeping too much: nearly every day 4. Feeling tired or having little energy: several days 5. Poor appetite or overeating: nearly every day 6. Feeling bad about yourself - or that you are a failure or have let yourself or your family down: not at all 7. Trouble concentrating on things, such as reading the newspaper or watching television: not at all 8. Moving or speaking so slowly that other people could have noticed. Or the opposite - being so fidgety or restless that you have been moving around a lot more than usual: several days 9. Thoughts that you would be better off or of hurting yourself in some way: not at all Total score: 9 Depression Screening Interpretation: Positive (Declines referral for counseling) Depression Screening Follow-up: Existing condition and In treatment 25419 - PHQ-9 Billing: Yes Source: Developed by Drs. Alexi Yadav, Brenda Barahona, Alonzo Smiley and colleagues, with an educational livia from [employer]. Thrive Questionnaire Date Thrive assessed: 03/17/22 AUDIT C Alcohol Use Questionnaire (AUDIT-C) 1. How often do you have a drink containing alcohol?: Never Total Score: 0 JENAE-7 AMB Questionnaire JENAE-7 Date JENAE - 7 assessed: 03/17/22 Source: Developed by Drs. Alexi Yadav, Brenda Barahona, Alonzo Smiley and colleagues, with an educational livia from [employer]. Review of Systems Const Denies fatigue, Denies headache(s) and Denies malaise Eyes Reports no additional complaints ENT Denies change in voice, Denies dysphagia, Denies headache(s) and Denies hoarseness Card Denies chest pain, Denies irregular heart rhythm and Denies dyspnea Resp Denies cough and Denies dyspnea GI Denies abdominal pain, Denies change in bowel habits, Denies dysphagia, Denies diarrhea and Denies nausea Musc Reports as per HPI, Denies myalgias, Denies muscle cramps, Denies numbness, Reports stiffness and Denies tingling Skin/Breast Denies rash Neuro Denies headache(s), Denies numbness and Denies tingling Psych Denies anxiety and Denies depression Endo Denies cold intolerance, Denies fatigue and Denies heat intolerance Carlin/Lymph Denies easy bruising Physical exam (Primary Care) Vital Signs: Last Vital Signs Pulse 65 07/16/22 10:14 BP 112/76 07/16/22 10:14 Pulse Ox 97 07/16/22 10:14 Oxygen Delivery Method Room Air 07/16/22 10:14 BMI result Body Mass Index 18.5 Tobacco/Smoking Status: Tobacco use Status Tobacco use date assessed 07/16/22 07/16/22 10:13 Patient Tobacco Use Status Current someday Tobacco 07/16/22 10:33 e-Cigarette/Vaping Use Never Used 07/16/22 10:33 PHQ-9: PHQ-9 Score PHQ-9: Total score 9 07/16/22 10:47 Depression Screening Interpretation: Positive (Declines referral for counseling) Depression Screening Follow-up: Existing condition and In treatment Thrive Assessment: Date of Thrive Assessment Date Thrive assessed 03/17/22 07/16/22 10:13 HENMT Face and sinus: Yes face symmetric Mouth: Normal oral and palatal mucosa present, tongue normal and moist mucous membranes Neck Other: Supple with no lymphadenopathy, thyroid gland nonpalpable Resp Auscultation: clear to auscultation bilaterally Cardio Other: S1-S2 present regular rate and rhythm 1+ dorsalis pedis pulse and popliteal tibial pulse bilaterally GI Inspection: Yes normal to inspection Palpation (GI): Soft to palpation, nontender, no guarding and no masses Extrem Other: Tenderness on palpation over anterior aspect of right shoulder, pain listed on abduction more than 90 degrees Hammertoes noted in both feet, thick yellowish discolored toenails in both feet Psych Appearance: grossly normal Mental Status: mental status grossly normal Speech and movement: Normal speech and movement present Affect: normal affect Attitude: cooperative Thought process: Normal thought process present Thought content: Normal thought content present Assessment and Plan Assessment & Plan (1) Cigarette smoker motivated to quit: Code(s): F17.210 - Nicotine dependence, cigarettes, uncomplicated Plan: Strongly advised to completely quit smoking, will decrease nicotine patch dose to 14 mg per patch to use as directed. Follow up again in 4 weeks (2) Restless leg syndrome: Code(s): G25.81 - Restless legs syndrome Plan: Continue with pramipexole (3) Impaired fasting glucose: Code(s): R73.01 - Impaired fasting glucose Plan: Your fasting blood sugars in the past were elevated above 100 mg/dL. Impaired glucose metabolism O2 at risk for developing diabetes mellitus type 2, as well as heart attack and stroke later on. Lifestyle changes at just weight loss, healthy eating habits, and regular exercise are important, and can prevent the progression to diabetes (4) Dyslipidemia: Code(s): E78.5 - Hyperlipidemia, unspecified Plan: fasting lipid profile ordered . Continue with atorvastatin 80 mg daily , in addition to adherence to low-cholesterol diet and regular exercise, at least 30 minutes 3 to 4 times a week. Advised patient to make healthy food choices, eat more fruits, vegetables, whole grains, wild caught fish and low-fat dairy. Limit amount of meat and fried or fatty food products, as well as processed foods and fast foods. (5) Chronic right shoulder pain: Code(s): M25.511 - Pain in right shoulder; G89.29 - Other chronic pain Plan: Discontinue meloxicam prescription sent for nabumetone to take as directed (6) Generalized anxiety disorder: Code(s): F41.1 - Generalized anxiety disorder Plan: Continue paroxetine 40 mg daily in a.m., declines refer for counseling Orders: Orders Lipid Panel 2 Months M85.89 - Other specified disorders of bone density and structure, multiple sites, G25.81 - Restless legs syndrome, I10 - Essential (primary) hypertension, R73.01 - Impaired fasting glucose, E78.5 - Hyperlipidemia, unspecified, M25.511 - Pain in right shoulder, G89.29 - Other chronic pain, F41.1 - Generalized anxiety disorder Aspartate Amino Transferase 2 Months M85.89 - Other specified disorders of bone density and structure, multiple sites, G25.81 - Restless legs syndrome, I10 - Essential (primary) hypertension, R73.01 - Impaired fasting glucose, E78.5 - Hyperlipidemia, unspecified, M25.511 - Pain in right shoulder, G89.29 - Other chronic pain, F41.1 - Generalized anxiety disorder Basic Metabolic Panel Fasting 2 Months M.89 - Other specified disorders of bone density and structure, multiple sites, G25.81 - Restless legs syndrome, I10 - Essential (primary) hypertension, R73.01 - Impaired fasting glucose, E78.5 - Hyperlipidemia, unspecified, M25.511 - Pain in right shoulder, G89.29 - Other chronic pain, F41.1 - Generalized anxiety disorder Vitamin D 25-OH Total 2 Months M.89 - Other specified disorders of bone density and structure, multiple sites, G25.81 - Restless legs syndrome, I10 - Essential (primary) hypertension, R73.01 - Impaired fasting glucose, E78.5 - Hyperlipidemia, unspecified, M25.511 - Pain in right shoulder, G89.29 - Other chronic pain, F41.1 - Generalized anxiety disorder Complete Blood Count Auto Diff 2 Months M.89 - Other specified disorders of bone density and structure, multiple sites, G25.81 - Restless legs syndrome, I10 - Essential (primary) hypertension, R73.01 - Impaired fasting glucose, E78.5 - Hyperlipidemia, unspecified, M25.511 - Pain in right shoulder, G89.29 - Other chronic pain, F41.1 - Generalized anxiety disorder Alanine Aminotransferase 2 Months M.89 - Other specified disorders of bone density and structure, multiple sites, G25.81 - Restless legs syndrome, I10 - Essential (primary) hypertension, R73.01 - Impaired fasting glucose, E78.5 - Hyperlipidemia, unspecified, M25.511 - Pain in right shoulder, G89.29 - Other chronic pain, F41.1 - Generalized anxiety disorder Medications: New nabumetone 500 mg PO BID PRN 60 tabs 0RF joint pain Changed From nicotine 1 patch transdermal Q24H 28 ea 0RF F17.210 - Nicotine dependence, cigarettes, uncomplicated To nicotine 1 patch transdermal Q24H 28 ea 0RF F17.210 - Nicotine dependence, cigarettes, uncomplicated Discontinued meloxicam Discontinued Reason: Doctor's Order 15 mg PO DAILY PRN 90 tabs 0RF for joint pain M25.50 - Pain in unspecified joint Coding Level of Care Code Est Pt Level 4 (90925) Diagnoses Cigarette smoker motivated to quit F17.210 Restless leg syndrome G25.81 Impaired fasting glucose R73.01 Dyslipidemia E78.5 Chronic right shoulder pain M25.511; G89.29 Generalized anxiety disorder F41.1
[2022-07-16 10:14] VITALS: BP 112/76; PULSE 65; O2SAT 97; BMI 18.5
== END 2022-07-16 10:53 | disposition home or self-care (01) ==
LOC: HO.HMGC 09:26
PROVIDERS: PCP Internal Medicine; Visit Provider Internal Medicine
DX: F17.210 Nicotine dependence, cigarettes, uncomplicated (principal); G25.81 Restless legs syndrome; R73.01 Impaired fasting glucose; E78.5 Hyperlipidemia, unspecified; M25.511 Pain in right shoulder; G89.29 Other chronic pain; F41.1 Generalized anxiety disorder
CPT/HCPCS: 99214

== ENCOUNTER 2022-08-16 10:10 | Outpatient (AMB) | payer MEDICAID, SELFPAY ==
--- NOTE | 2022-08-16 10:10 | MHC.OFFVIS ---
Intake Intake Visit Reasons: F/U Osteoporosis Allergies No Known Allergies Allergy (Verified 08/16/22 10:21) Medication List - Last Reconciled 08/16/22 by Gregoria Brito DO albuterol sulfate 90 mcg/actuation inhalation atorvastatin 10 mg PO DAILY bisacodyl (Dulcolax (bisacodyl)) 10 mg (2 x 5 mg) PO ONCE 1 day cholecalciferol (vitamin D3) 25 mcg PO DAILY eiasnzuhxej-dfoojpoze-vgsjopwz 100-62.5-25 mcg inhalation nabumetone 500 mg PO BID PRN nicotine 1 patch transdermal Q24H omeprazole mg PO paroxetine HCl 40 mg PO QAM polyethylene glycol 3350 (Miralax) 238 grams PO ONCE pramipexole 0.25 mg PO BEDTIME HPI HPI Comments History of Present Illness Details 66 YO Female with PMHx Osteoporosis, who is seen in F/U for Osteoporosis. First diagnosed in 2020, prior to that she had Osteopenia. She was previously on Fosamax weekly. This was started in 2020. After her initial visit with me in November 2020 we stopped her Fosamax and HCTZ and she was asked to complete a full biochemical evaluation for secondary causes of Osteoporosis, and F/U today to review the results. She did stop the Fosamax and HCTZ and did her workup, but unfortunately her urine collection was an insufficient collection with only 350 cc collected. She failed treatment with Fosamax because her BMD has worsened on this. No history of pathologic fracture or ONJ. Has 2-3 servings of dietary calcium per day in the form of milk, cheese and ensure. She does not take a Calcium supplement. Takes 1000 IU of Vitamin D daily. Denies ever using PPI, anticoagulant, antiepileptic or glucocorticoid medication. Does weight bearing exercise 7 days per week in the form of walking and playing with her Grandkids. Fracture history: Had a traumatic fracture of her L arm and pelvis in 1989 when she fell out a window. No fragility fractures. Height loss: Denies ANIMAL TECH history: Menarche was age 15. Menses were always regular. . She did not breastfeed. Menopause was age 54. She did not use HRT. Denies history of Kidney stones: Denies family history of Osteoporosis or hip fracture. UTD on dental cleanings and sees dentist every 6 months. No planned upcoming dental work or extractions. Of note, she was recently diagnosed with squamous cell carcinoma of the lung and underwent surgical resection. She states there is no plan for chemo or radiation at this time. DXA dated 03/28/2020: FINDINGS: AP SPINE L1-L2 (excluding L3 and L4): The data of L1-L4 has been changed to exclude the L3 and L4 vertebral bodies, because degenerative changes at this level may cause overestimation of lumbar spine density. Current: BMD 0.979 g/cm2, Z-score 0.8, T-score -1.6, osteopenia, 2.9% decrease from baseline (<5% change is not significant). Baseline: BMD 1.008 g/cm2. LEFT FEMUR, NECK: Current: BMD 0.632 g/cm2, Z-score -0.9, T-score -2.9, osteoporosis. Baseline: BMD 0.705 g/cm2. LEFT FEMUR, TOTAL: Current: BMD 0.684 g/cm2, Z-score -0.8, T-score -2.6, osteoporosis, 5.8% decrease from baseline (<5% change is not significant). Baseline: BMD 0.726 g/cm2. Labs: Laboratory Tests 04/08/21 07/20/21 07/20/21 09:03 09:23 09:23 Creatinine 0.78 Estimated GFR > 60 PEP Interpretation SEE NOTE N-Telopeptide X-li nked 25-OH Vitamin D To sravani 32.4 PTH Intact 46 Calcium (PTH Intac t) 9.8 07/21/21 08:30 Creatinine Estimated GFR PEP Interpretation N-Telopeptide X-li nked 44 25-OH Vitamin D To sravani PTH Intact Calcium (PTH Intac t) [facility] Medical History Chronic right shoulder pain Cigarette smoker motivated to quit Colon cancer screening COPD (chronic obstructive pulmonary disease) Dyslipidemia Elbow pain, right Essential hypertension Fall Generalized anxiety disorder Hiatal hernia Impaired fasting glucose Leg cramps Menopause Osteopenia of multiple sites Osteoporosis Polyarthralgia Restless leg syndrome Shoulder pain, right Squamous cell carcinoma Vitamin D deficiency Surgical History History of fusion of cervical spine History of hernia repair S/P partial lobectomy of lung Family History Father Esophageal cancer Mother Cirrhosis HTN (hypertension) Diabetes mellitus Liver problem Brother Mental health disorder Daughter No problems noted. Social History Housing: House Alcohol intake: never Patient Tobacco Use Status: Current someday Tobacco user Cigarettes Per Day: 1 Years Smoked: 53 yrs e-Cigarette/Vaping Use: Never Used service: No Current occupational status: disabled Current occupation: right hand dominant Cognitive needs: No Hearing needs: No Vision needs: No Assessment & Plan Assessment & Plan (1) Osteoporosis: Code(s): M81.0 - Age-related osteoporosis without current pathological fracture Plan: Patient with Osteoporosis of the hip, and Osteopenia of the spine. She has failed treatment with Fosamax as her BMD has worsened while on Fosamax. She is now off the Fosamax and HCTZ. Labs did reveal normal SPEP and no evidence of hyperparathyroidism. Her 24 hour urine collection was unfortunately inadequate. Plan for now is to repeat this as well as blood work. We will also repeat her DXA at this time. She will then F/U in 3 months time to review and determine the next steps in her management. We reviewed fall prevention today, and I did advise her she is at high risk for a hip fracture. All of her questions were answered. She is in agreement with this plan of care. I spent 20 minutes in reviewing the record, seeing the patient and documenting in the medical record, including 5 minutes on the phone with the Patient. (2) Vitamin D deficiency: Code(s): E55.9 - Vitamin D deficiency, unspecified Plan: Vitamin D remains at goal. No changes. Orders: Orders Comprehensive Met. Panel Today M81.0 - Age-related osteoporosis without current pathological fracture Phosphorus Today M81.0 - Age-related osteoporosis without current pathological fracture PTHI Today M81.0 - Age-related osteoporosis without current pathological fracture Vitamin D 25-OH Total Today E55.9 - Vitamin D deficiency, unspecified Collagen Crosslinks NTX Today M81.0 - Age-related osteoporosis without current pathological fracture Calcium, 24 Hr Ur Today M81.0 - Age-related osteoporosis without current pathological fracture Creatinine, 24 Hr Group Today M81.0 - Age-related osteoporosis without current pathological fracture XR DEXA appendicular skeleton Today M81.0 - Age-related osteoporosis without current pathological fracture XR DEXA axial skeleton Today M81.0 - Age-related osteoporosis without current pathological fracture Telehealth Telehealth Location of provider rendering services: practice address Location of patient: address on file Patient Identification confirmed using: Name, : Yes Telehealth method: voice only Patient verbally consented to treatment: Yes Patient verbally consented to billing insurance company: Yes Patient informed of any privacy concerns related to visit: Yes Coding Level of Care Code Tele Est Pt Level 3 (51440) Diagnoses Osteoporosis M81.0 Vitamin D deficiency E55.9
== END 2022-08-16 10:32 | disposition home or self-care (01) ==
LOC: HO.ENCR 10:10
PROVIDERS: PCP Internal Medicine; Visit Provider Internal Medicine
DX: M81.0 Age-related osteoporosis without current pathological fracture (principal); E55.9 Vitamin D deficiency, unspecified
CPT/HCPCS: 99213

== ENCOUNTER → 2022-08-16 10:10 | Outpatient (BNVA) | payer MEDICAID, SELFPAY | PROVIDERS: PCP Internal Medicine; Visit Provider Internal Medicine ==

== ENCOUNTER 2022-09-09 08:12 | Outpatient (AMB) | payer MEDICAID, SELFPAY ==
[2022-09-09 08:38] VITALS: BP 130/80; PULSE 73; O2SAT 96; BMI 18.4
--- NOTE | 2022-09-09 08:38 | MHC.PC.OV ---
Vital Signs 09/09/22 08:38 Height 4 ft 11 in Weight 91 lb BMI 18.4 BP 130/80 Blood Pressure Location Lt brachial Position Sitting Pulse 73 Pulse Source Pulse Oximeter Pulse Oximetry (%) 96 Oxygen Delivery Method Room Air Intake Visit Reasons: 2 month follow up Intake Note: Pt is here today for her 2 months f/u Allergies No Known Allergies Allergy (Verified 09/09/22 09:05) Medication List - Last Reconciled 09/09/22 by Donna Romero MD albuterol sulfate 90 mcg/actuation inhalation atorvastatin 10 mg PO DAILY cholecalciferol (vitamin D3) 25 mcg PO DAILY vsnbdytqebh-oxprpiyoz-ywuqjwpx 100-62.5-25 mcg inhalation nabumetone 500 mg PO BID PRN nicotine 1 patch transdermal Q24H omeprazole mg PO paroxetine HCl 40 mg PO QAM pramipexole 0.25 mg PO BEDTIME Tobacco use date assessed: 09/09/22 Fall risk assessment: No Falls in past year Last assessed Fall Risk: 09/09/22 Dental Screening Dental Screen Date: 09/09/22 Did you have a dental visit in the last 12 months?: No Was dental information given to patient?: No HPI 2 month follow up HPI Details 67-year-old lady here today for follow-up. She has been trying to quit smoking, started on nicotine patches, down to 40 mg per patch, initially successful including, but now smokes about 2-3 cigarettes a week again. Patient states that she has been under lot of stress lately as her brother is currently admitted at ICU in [facility] and not doing very well. She is also here to follow-up on her lipids, generalized anxiety disorder and Arlette clothes legs syndrome, currently on atorvastatin, paroxetine and pramipexole respectively. Has been taking her medication, tries to follow recommended diet, but has not yet had her fast fasting labs done which has already been ordered. [facility] Medical History (Updated 09/09/22 @ 13:19 by Donna Romero MD) Chronic right shoulder pain Cigarette smoker motivated to quit Colon cancer screening COPD (chronic obstructive pulmonary disease) Dyslipidemia Elbow pain, right Essential hypertension Fall Generalized anxiety disorder Hiatal hernia Impaired fasting glucose Leg cramps Menopause Osteopenia of multiple sites Osteoporosis Polyarthralgia Restless leg syndrome Shoulder pain, right Squamous cell carcinoma Vitamin D deficiency Surgical History History of fusion of cervical spine History of hernia repair S/P partial lobectomy of lung Family History Father Esophageal cancer Mother Cirrhosis HTN (hypertension) Diabetes mellitus Liver problem Brother Mental health disorder Daughter No problems noted. Social History Housing: House Alcohol intake: never Patient Tobacco Use Status: Current someday Tobacco user Cigarettes Per Day: 1 Years Smoked: 53 yrs e-Cigarette/Vaping Use: Never Used service: No Current occupational status: disabled Current occupation: right hand dominant Cognitive needs: No Hearing needs: No Vision needs: No Questionnaire Thrive Questionnaire Date Thrive assessed: 03/17/22 JENAE-7 AMB Questionnaire JENAE-7 Date JENAE - 7 assessed: 03/17/22 Source: Developed by Drs. Alexi Yadav, Brenda Barahona, Alonzo Smiley and colleagues, with an educational livia from [employer]. Review of Systems Const Denies fatigue, Denies headache(s) and Denies malaise ENT Denies change in voice, Denies dysphagia, Denies headache(s) and Denies hoarseness Card Denies chest pain, Denies irregular heart rhythm and Denies dyspnea Resp Denies cough and Denies dyspnea GI Denies abdominal pain, Denies change in bowel habits, Denies dysphagia, Denies diarrhea and Denies nausea Musc Denies myalgias, Denies muscle cramps, Denies numbness, Reports stiffness and Denies tingling Skin/Breast Denies rash Neuro Denies headache(s), Denies numbness and Denies tingling Psych Denies anxiety and Denies depression Endo Denies cold intolerance, Denies fatigue and Denies heat intolerance Physical exam (Primary Care) Vital Signs: Last Vital Signs Pulse 73 09/09/22 08:38 BP 130/80 09/09/22 08:38 Pulse Ox 96 09/09/22 08:38 Oxygen Delivery Method Room Air 09/09/22 08:38 BMI result Body Mass Index 18.4 Tobacco/Smoking Status: Tobacco use Status Tobacco use date assessed 09/09/22 09/09/22 08:44 Patient Tobacco Use Status Current someday Tobacco 09/09/22 08:40 e-Cigarette/Vaping Use Never Used 09/09/22 08:40 Thrive Assessment: Date of Thrive Assessment Date Thrive assessed 03/17/22 09/09/22 08:40 Const Other: Alert oriented x3, no acute cardiorespiratory distress noted ambulatory normal gait HENMT Face and sinus: Yes face symmetric Mouth: Normal oral and palatal mucosa present, tongue normal and moist mucous membranes Neck Other: Supple with no lymphadenopathy, thyroid gland nonpalpable Resp Auscultation: clear to auscultation bilaterally Cardio Other: S1-S2 present regular rate and rhythm 1+ dorsalis pedis pulse and popliteal tibial pulse bilaterally GI Inspection: Yes normal to inspection Palpation (GI): Soft to palpation, nontender, no guarding and no masses Psych Appearance: grossly normal Mental Status: mental status grossly normal Speech and movement: Normal speech and movement present Affect: normal affect Attitude: cooperative Thought process: Normal thought process present Thought content: Normal thought content present Immunizations pneumoc 20-kenny conj-dip cr(PF) Performing Provider: Donna Romero MD Administered by: Valeria Heller CMA on 09/09/22 09:31 Dose Route Admin Location Lot Number Expiration Date NDC Insurance Account Executive 0.5 mL IM Left Deltoid [id number] 11/07/23 1230-9918-53 [employer] VIS Given Date VIS Provided VIS Publication Date 09/09/22 Single Vaccine 21 Eligibility Eligibility Date Funding Source Not [facility] Eligible 09/09/22 Private Assessment and Plan Assessment & Plan (1) Cigarette smoker motivated to quit: Code(s): F17.210 - Nicotine dependence, cigarettes, uncomplicated Plan: Strongly encouraged to continue trying to quit smoking, still has patches, resume using it as soon as ready to quit again. (2) Restless leg syndrome: Code(s): G25.81 - Restless legs syndrome Plan: Stable and controlled on pramipexole (3) Dyslipidemia: Code(s): E78.5 - Hyperlipidemia, unspecified Plan: Continue with atorvastatin 10 mg daily, get fasting labs done already ordered (4) Generalized anxiety disorder: Code(s): F41.1 - Generalized anxiety disorder Plan: Stable controlled on paroxetine 40 mg daily (5) Need for pneumococcal 20-valent conjugate vaccination: Code(s): Z23 - Encounter for immunization Orders: Orders Pneumococcal 20 Immunization Today Z23 - Encounter for immunization Patient Instructions: Prevnar 20 given today Coding Level of Care Code Est Pt Level 3 (04074) Diagnoses Cigarette smoker motivated to quit F17.210 Restless leg syndrome G25.81 Dyslipidemia E78.5 Generalized anxiety disorder F41.1 Need for pneumococcal 20-valent conjugate vaccination Z23
== END 2022-09-09 10:00 | disposition home or self-care (01) ==
PROVIDERS: PCP Internal Medicine; Visit Provider Internal Medicine
DX: G25.81 Restless legs syndrome (principal); E78.5 Hyperlipidemia, unspecified; F17.210 Nicotine dependence, cigarettes, uncomplicated; Z23 Encounter for immunization; F41.1 Generalized anxiety disorder
CPT/HCPCS: 90471; 90677; 99213

== ENCOUNTER 2022-09-14 07:47 | Outpatient (REF) | payer MEDICAID, SELFPAY ==
[2022-09-14 11:32] LABS: MANUAL DIFF FLAG NO
[2022-09-14 11:44] LABS: Basophils Absolute Auto 0.1 X10*3/uL (0.0-0.2); Basophils Percent Auto 1.6 % (0-2); Eosinophils Absolute Auto 0.1 X10*3/uL (0.0-0.4); Eosinophils Percent Auto 1.8 % (0-4); Hematocrit 47.9 % (37.0-47.0); Hemoglobin 15.2 g/dl (12.0-16.0); Imm Gran Abs Auto 0.03 X10*3/uL (0.00-0.03); Imm Gran Pct Auto 0.4 % (0.0-0.4); Lymphocytes Absolute Auto 1.9 X10*3/uL (1.2-4.9); Lymphocytes Percent Auto 25.4 % (20-40); Mean Corpuscular HGB Conc 31.7 g/dl (31.0-35.0); Mean Corpuscular Hemoglobin 30.6 pg (27.0-33.0); Mean Corpuscular Volume 96.4 fL (80.0-98.0); Mean Platelet Volume 10.3 fL (9.4-12.3); Monocytes Absolute Auto 0.6 X10*3/uL (0.1-1.2); Monocytes Percent Auto 8.5 % (2-11); Neutrophils Absolute Auto 4.6 x10*3/uL (2.0-8.3); Neutrophils Percent Auto 62.3 % (45-73); Platelet Count 249 X10*3/uL (160-400); Red Blood Count 4.97 X10*6/uL (4.20-5.50); Red Cell Distribution Width 13.3 % (11.0-16.0); White Blood Count 7.4 X10*3/uL (4.8-10.8)
[2022-09-14 13:15] LABS: Alanine Aminotransferase 17 U/L (0-31); Albumin Level 4.3 g/dL (3.5-5.0); Alkaline Phosphatase 62 U/L (39-117); Anion Gap 13 (12-20); Aspartate Amino Transferase 21 U/L (5-31); Bilirubin Total 0.6 mg/dL (0.0-1.0); Blood Urea Nitrogen 17 mg/dL (9-16); Calcium 9.9 mg/dL (8.4-10.2); Carbon Dioxide 26 mmol/L (22-29); Chloride 107 mmol/L (96-108); Cholesterol 212 mg/dL; Estimated Glomerular Filt Rate > 60; Glucose Fasting 101 mg/dL (60-99); Glucose Random 100 mg/dL (60-115); HDL Cholesterol 95 mg/dL; LDL Cholesterol Calculated 102 mg/dl; Phosphorus 3.8 mg/dL (2.7-4.5); Potassium 4.3 mmol/L (3.3-5.1); Sodium 142 mmol/L (135-145); Total Protein 7.6 g/dL (6.5-8.0); Triglycerides 79 mg/dL
[2022-09-14 13:26] LABS: Vitamin D 25-OH Total 41.1 ng/mL (>30)
[2022-09-16 22:09] LABS: Calcium (PTHI) 9.7 mg/dL (8.6-10.4); PTHI 30 pg/mL (16-77)
== END 2022-09-14 07:48 | disposition home or self-care (01) ==
LOC: HO.HMGCLDS 07:47
PROVIDERS: Absent Provider Internal Medicine; PCP Internal Medicine; Visit Provider Internal Medicine
DX: F41.1 Generalized anxiety disorder (principal); E78.5 Hyperlipidemia, unspecified; G25.81 Restless legs syndrome; G89.29 Other chronic pain; I10 Essential (primary) hypertension; M25.511 Pain in right shoulder; M85.89 Other specified disorders of bone density and structure, multiple sites; R73.01 Impaired fasting glucose; M81.0 Age-related osteoporosis without current pathological fracture; E55.9 Vitamin D deficiency, unspecified
CPT/HCPCS: 36415; 80048; 80053; 80061; 82306; 83970; 84100; 85025

== ENCOUNTER 2022-09-29 07:41 | Day surgery (SDC) | payer MEDICAID, SELFPAY ==
[2022-09-27 12:36] VITALS: BMI 18.4
--- NOTE | 2022-09-28 10:59 | HO.ANESPROP2 ---
Documented by User: Chary Guy NP 09/28/22 11:00 HPI - Anesthesia Eval Consult details Narrative: 67yo F for Colonoscopy PMFSH Active Problems Active Problems: All Active Problems (Updated 09/09/22 @ 13:19 by Donna Romero MD) Chronic right shoulder pain (Acute) Hiatal hernia (Acute) Generalized anxiety disorder (Acute) Polyarthralgia (Acute) Leg cramps (Acute) Vitamin D deficiency (Acute) Squamous cell carcinoma (Acute) Osteoporosis (Acute) Needs flu shot (Acute) Menopause (Acute) Osteopenia of multiple sites (Acute) Cigarette smoker motivated to quit (Acute) Restless leg syndrome (Acute) COPD (chronic obstructive pulmonary disease) (Acute) Essential hypertension (Acute) Impaired fasting glucose (Acute) Dyslipidemia (Acute) Past Medical History Medical History (Updated 09/09/22 @ 13:19 by Donna Romero MD) Chronic right shoulder pain Cigarette smoker motivated to quit Colon cancer screening COPD (chronic obstructive pulmonary disease) Dyslipidemia Elbow pain, right Essential hypertension Fall Generalized anxiety disorder Hiatal hernia Impaired fasting glucose Leg cramps Menopause Osteopenia of multiple sites Osteoporosis Polyarthralgia Restless leg syndrome Shoulder pain, right Squamous cell carcinoma Vitamin D deficiency Family History Family History Father Esophageal cancer Mother Cirrhosis HTN (hypertension) Diabetes mellitus Liver problem Brother Mental health disorder Daughter No problems noted. Surgical History Surgical History History of fusion of cervical spine History of hernia repair S/P partial lobectomy of lung Social History Social History Housing: House Alcohol intake: never Patient Tobacco Use Status: Current someday Tobacco user Cigarettes Per Day: 1 Years Smoked: 53 yrs e-Cigarette/Vaping Use: Never Used Advance Directives: No Advance Directives Information Provided: Yes service: No Current occupational status: disabled Current occupation: right hand dominant Cognitive needs: No Hearing needs: No Vision needs: No Meds Allergies Allergy/AdvReac Type Severity Reaction Status Date / Time No Known Allergies Allergy Verified 09/09/22 09:05 Home Medications Medication Instructions Recorded Confirmed Last Taken Type albuterol sulfate 90 mcg/actuation inhalation 03/06/20 08/16/22 Unknown History aerosol inhaler fluticasone fur. 100 mcg-umeclid inhalation 03/06/20 08/16/22 Unknown History 62.5 mcg-vilant 25 mcg inhalat.powder omeprazole 20 mg capsule,delayed mg PO 03/17/22 08/16/22 Unknown History release Exam Exam Date and Time: September 28, 2022 1059 Height,Weight and Vital Signs: Height 4 ft 11 in Weight 41.277 kg Assessment and Plan Assessment Anesthesia Assessment: Chart Reviewed Documented by User: Prabhu Pham MD 09/29/22 07:57 PMFSH Past Medical History Medical History (Updated 09/09/22 @ 13:19 by Donna Romero MD) Chronic right shoulder pain Cigarette smoker motivated to quit Colon cancer screening COPD (chronic obstructive pulmonary disease) Dyslipidemia Elbow pain, right Essential hypertension Fall Generalized anxiety disorder Hiatal hernia Impaired fasting glucose Leg cramps Menopause Osteopenia of multiple sites Osteoporosis Polyarthralgia Restless leg syndrome Shoulder pain, right Squamous cell carcinoma Vitamin D deficiency Family History Family History Father Esophageal cancer Mother Cirrhosis HTN (hypertension) Diabetes mellitus Liver problem Brother Mental health disorder Daughter No problems noted. Family history of problems with anesthesia: No Surgical History Surgical History History of fusion of cervical spine History of hernia repair S/P partial lobectomy of lung History of Problems with Anesthesia: No Social History Social History Housing: House Alcohol intake: never Patient Tobacco Use Status: Current someday Tobacco user Cigarettes Per Day: 1 Years Smoked: 53 yrs e-Cigarette/Vaping Use: Never Used Advance Directives: No Advance Directives Information Provided: Yes service: No Current occupational status: disabled Current occupation: right hand dominant Cognitive needs: No Hearing needs: No Vision needs: No Meds Allergies Allergy/AdvReac Type Severity Reaction Status Date / Time No Known Allergies Allergy Verified 09/09/22 09:05 Home Medications Medication Instructions Recorded Confirmed Last Taken Type albuterol sulfate 90 mcg/actuation inhalation 03/06/20 08/16/22 Unknown History aerosol inhaler fluticasone fur. 100 mcg-umeclid inhalation 03/06/20 08/16/22 Unknown History 62.5 mcg-vilant 25 mcg inhalat.powder omeprazole 20 mg capsule,delayed mg PO 03/17/22 08/16/22 Unknown History release Exam Airway Mallampati Class: II TM Dist: <=3cm Neck ROM: Limited Heart: rrr Lungs: cta Assessment and Plan Assessment Anesthesia Assessment: Anesthesia Plan Discussed Final Anesthetic Review Family History of Problems with Anesthesia: No History of Problems with Anesthesia: No NPO: Yes ASA Class: III Final Preanesthetic Review: No Changes in Pt Med Stat, Meds/Allgs Chart Reviewed, Consent Obtained/Reviewed and Anes Risks/Benef Reviewed Patient Risk: Intermediate Procedure Risk: Low Anesthetic Plan Anesthetic Plan: MAC: and Agree w/ Assess. and Plan Disposition: Standard PACU
[2022-09-29 08:19] VITALS: BP 125/81; PULSE 68; RESP 16; TEMP 36.4; O2SAT 97; BMI 18.4
[2022-09-29] MEDS: Lactated Ringers 1,000 ML 100 ML IVCONT (08:41)
--- NOTE | 2022-09-29 09:06 | MHC.SHP ---
Pre-Procedural Eval Section A Date of Service: 09/29/22 Section B Chief Complaint: Encounter for screening for malignant neoplasm Relevant Family History (Specify if Yes): No Relevant Social History: Tobacco Use Present Medications: see Short Stay Collaborative assessment Medical History: Significant History (Chronic right shoulder pain Cigarette smoker motivated to quit Colon cancer screening COPD (chronic obstructive pulmonary disease) Dyslipidemia Elbow pain, right Essential hypertension Fall Generalized anxiety disorder Hiatal hernia Impaired fasting glucose Leg cramps Menopause Osteopenia of multipl) History of Previous Operations: Relevant previous surgery/procedure and date(s) (History of fusion of cervical spine History of hernia repair S/P partial lobectomy of lung) Allergies: Allergies Allergy/AdvReac Type Severity Reaction Status Date / Time No Known Allergies Allergy Verified 09/09/22 09:05 Review of Systems Sugical H&P ROS: Negative: Constitution, Cardiovascular, Respiratory, Neurological, Psychiatric, Hem-Onc, Allergic/Immunologic, Gastrointestinal, Genitourinary, Musculoskeletal, Integumentary, Endocrine and Eyes/Ears/Nose/Throat Exam Surgical H&P Exam: Normal: HEENT, Normal: Heart, Normal: Lungs, Normal: Extremities, Normal: Abdomen, Normal: Skin and Normal: Neurological Plan Diagnosis/Plan: Unchanged I have reviewed the history and physical and performed a pertinent physical examination on my patient. No changes have occurred unless specified. Time Spent With Patient Time: Total time managing care of this patient today ____ minutes.
--- NOTE | 2022-09-29 09:07 | W.PM.OPN ---
Operative Note Operative Note Date of Service: 09/29/22 Narrative: Operative Information Procedure Description: Colonoscopy Indication: hx of colon polyps Anesthesia: MAC COLONOSCOPY Instrument: Olympus variable stiffness pediatric scope 190L Colonoscopy Monitoring: Vital signs and clinical assessment, continuous EKG monitoring, Pulse oximetry, Carbon Dioxide monitoring and blood pressure monitoring were done throughout the procedure. Colon withdrawal time was 15 minutes. Procedure: The patient was placed in the left lateral decubitis position and pre-procedure medications were administered. After a digital rectal examination of the ano-rectum, the video colonoscope was inserted into the rectum and advanced through the colon to the cecum/TI. The colonoscope was slowly withdrawn in a retrograde panoramic fashion and the colon mucosa was carefully examined including a retroflexed view of the rectum. Findings and interventions are described below. Procedure Difficulty: moderate Findings: Terminal Ileum-normal Cecum:normal Ascending Colon: normal Transverse Colon -normal Descending Colon: 10 mm sessile polyp removed with cold snare Sigmoid Colon: normal Rectum: Retroflexion with small internal hemorrhoids, grade I, 8-10 mm sessile polyp removed with cold snare Anorectum - normal Colon preparation: [place] Bowel Preparation Scale Right colon; 1-2 Transverse colon: 2 Left colon; 2 (0 = Unprepared colon segment with mucosa not seen due to solid stool that cannot be cleared. 1 = Portion of mucosa of the colon segment seen, but other areas of the colon segment not well seen due to staining, residual stool and/or opaque liquid. 2 = Minor amount of residual staining, small fragments of stool and/or opaque liquid, but mucosa of colon segment seen well. 3 = Entire mucosa of colon segment seen well with no residual staining, small fragments of stool or opaque liquid) Impression and Post Procedure Diagnosis: polyps internal hemorrhoids Plan: High fiber diet leaflet Avoid straining at stool, epsom salts and sitz bath, anusol supps or cream Repeat Colonoscopy in 5 years due to fair pre on right or earlier if clinically indicated Above findings were reviewed with the patient and relevant handouts were provided if indicated.
[2022-09-29 09:55] VITALS: BP 79/49; PULSE 115; RESP 16; TEMP 36.1; O2SAT 97
[2022-09-29 10:00] VITALS: BP 88/49
[2022-09-29 10:10] VITALS: BP 102/69; PULSE 104; RESP 16; TEMP 36.2; O2SAT 96
[2022-09-29 10:23] VITALS: BP 113/58; PULSE 90; RESP 16; TEMP 36.2; O2SAT 97
== END 2022-09-29 11:00 | disposition home or self-care (01) ==
PROVIDERS: PCP Internal Medicine; Visit Provider Internal Medicine Gastroenterology
PROC: 0DJD8ZZ Inspection of Lower Intestinal Tract, Via Natural or Artificial Opening Endoscopic (ICD-10-PCS; CPT 45378; principal; 2022-09-29 09:20)
DX: Z12.11 Encounter for screening for malignant neoplasm of colon (principal); Z86.010 Personal history of colon polyps; D12.4 Benign neoplasm of descending colon; K62.1 Rectal polyp; K57.30 Diverticulosis of large intestine without perforation or abscess without bleeding; K64.0 First degree hemorrhoids; K44.9 Diaphragmatic hernia without obstruction or gangrene; J44.9 Chronic obstructive pulmonary disease, unspecified; E78.5 Hyperlipidemia, unspecified; I10 Essential (primary) hypertension; R73.01 Impaired fasting glucose; M85.89 Other specified disorders of bone density and structure, multiple sites; F41.1 Generalized anxiety disorder; Z79.51 Long term (current) use of inhaled steroids; Z79.899 Other long term (current) drug therapy; Z90.2 Acquired absence of lung [part of]; F17.210 Nicotine dependence, cigarettes, uncomplicated
CPT/HCPCS: 45385; 88305

== ENCOUNTER → 2022-09-29 07:41 | Outpatient (BNV) | payer MEDICAID, SELFPAY | PROVIDERS: PCP Internal Medicine; Visit Provider Internal Medicine Gastroenterology | DX: Z86.010 Personal history of colon polyps (principal); D12.4 Benign neoplasm of descending colon; D12.8 Benign neoplasm of rectum; K64.0 First degree hemorrhoids | CPT/HCPCS: 45385 ==

== ENCOUNTER 2022-10-13 09:32 | Outpatient (AMB) | payer MEDICAID, SELFPAY ==
[2022-10-13 09:41] VITALS: BP 136/60; PULSE 77; BMI 18.3
--- NOTE | 2022-10-13 09:41 | MHC.OFFVIS ---
Intake Vital Signs 10/13/22 09:41 Height 4 ft 11 in Weight 90 lb 6.232 oz BMI 18.3 BP 136/60 Blood Pressure Location Lt brachial Position Sitting Pulse 77 Intake Visit Reasons: s/P Nora; Dr. Schmidt Intake Note: Jamila presents in office as a est.patient for a post-op f/u for COLO pt got it done 09.29.22 PT CC: pt reports having abdominal cramping pt denies any other GI Issues Content Development Manager Required: No Accompanied by: Self / Same As Patient Allergies No Known Allergies Allergy (Verified 10/13/22 09:42) HPI s/P Nora; Dr. Schmidt HPI Details LAST VISIT: Colon cancer screening Patient denies any GI, cardiac or respiratory symptoms.? Patient has a history of COPD uses oxygen as needed at night time. Denies any issues with anesthesia in the past.? Denies any history of sleep apnea.? However patient reports that she uses O2 on as needed basis at bedtime. History of COPD. No history infectious diseases in the past or present.? Not on any anticoagulation therapy.? No family history of colon cancer.? Patient denies melena, hematochezia, unintentional weight loss or ribbon like stools.? Discussed at length the pre-procedure,? prep, diet & medications as well as what to expect prior, during and after the procedure.?? Stressed the importance of good bowel prep. ?Recommended the use of Vaseline or Calmoseptine OTC & baby wipes with bowel movements to promote comfort.? ?Patient verbalizes understanding and agrees to plan of care.? She was given the opportunity to ask questions and all questions answered.? We will see her after the procedure.? Plan Medications New bisacodyl (Dulcolax (bisacodyl)) take 2 tabs at noon the day before your colonoscopy 10 mg (2 x 5 mg) PO ONCE 2 tabs 0RF 1 day Z12.11 polyethylene glycol 3350 (Miralax) As directed by gastroenterology department at [facility] 238 grams PO ONCE 238 grams 0RF Z12.1 COLONOSCOPY: Findings: Terminal Ileum-normal Cecum:normal Ascending Colon: normal Transverse Colon -normal Descending Colon: 10 mm sessile polyp removed with cold snare Sigmoid Colon:? normal Rectum: Retroflexion with small internal hemorrhoids, grade I, 8-10 mm sessile polyp removed with cold snare Anorectum - normal Colon preparation: [place] Bowel Preparation Scale Right colon; 1-2 Transverse colon: 2 Left colon; 2 (0 = Unprepared colon segment with mucosa not seen due to solid stool that cannot be cleared. 1 = Portion of mucosa of the colon segment seen, but other areas of the colon segment not well seen due to staining, residual stool and/or opaque liquid. 2 = Minor amount of residual staining, small fragments of stool and/or opaque liquid, but mucosa of colon segment seen well. 3 = Entire mucosa of colon segment seen well with no residual staining, small fragments of stool or opaque liquid) Impression and Post Procedure Diagnosis: polyps internal hemorrhoids Plan: High fiber diet leaflet Avoid straining at stool, epsom salts and sitz bath, anusol supps or cream Repeat Colonoscopy in 5 years due to fair pre on right or earlier if clinically indicated PATHOLOGY: Diagnosis A.? Rectum, polypectomy:? Hyperplastic polyp. B.? Colon, descending, polypectomy:? Tubular adenoma, no evidence of high-grade dysplasia or invasive carcinoma.? TODAY'S VISIT Patient is here today for follow-up and to discuss colonoscopy results. Patient denies any ill effects with the prep, anesthesia or procedure itself. Patient reports that she has been feeling well. Denies melena, hematochezia, unintentional weight loss or ribbon like stools. One tubular adenoma found in his descending colon without high grade dysplasia or carcinoma. Patient denies any dyspepsia, dysphagia or odynophagia. Patient reports occasional left lower quadrant cramping, gas like pain. Patient reports to have good appetite. Moves her bowels regularly every day. [facility] Medical History (Updated 10/13/22 @ 10:16 by Krystal Perez, EQUIPMENT INSTALLATION PROFESSIONAL-YOLANDE) Chronic right shoulder pain Cigarette smoker motivated to quit Colon cancer screening COPD (chronic obstructive pulmonary disease) Dyslipidemia Elbow pain, right Essential hypertension Fall Generalized anxiety disorder Hiatal hernia Impaired fasting glucose Leg cramps Menopause Osteopenia of multiple sites Osteoporosis Polyarthralgia Restless leg syndrome Shoulder pain, right Squamous cell carcinoma Tubular adenoma Vitamin D deficiency Surgical History History of fusion of cervical spine History of hernia repair Hx of colonoscopy S/P partial lobectomy of lung Family History Father Esophageal cancer Mother Cirrhosis HTN (hypertension) Diabetes mellitus Liver problem Brother Mental health disorder Daughter No problems noted. Social History Housing: House Alcohol intake: never Patient Tobacco Use Status: Current everyday Tobacco user Tobacco use type: Cigarette Cigarettes Per Day: 1 Years Smoked: 50 e-Cigarette/Vaping Use: Never Used service: No Current occupational status: disabled Current occupation: right hand dominant Cognitive needs: No Hearing needs: No Vision needs: No Review of Systems Const Denies weight gain and Denies weight loss ENT Reports no additional complaints, Denies dysphagia and Denies odynophagia Card Reports no additional complaints Resp Reports no additional complaints GI Reports abdominal pain (LLQ occasional cramping), Denies belching, Denies melena, Denies bloating, Denies change in bowel habits, Denies dysphagia, Denies excessive flatus, Denies dyspepsia, Denies heartburn, Denies diarrhea, Denies loose stools, Denies nausea, Denies odynophagia and Denies vomiting Musc Reports no additional complaints Neuro Reports no additional complaints Psych Reports no additional complaints Endo Reports no additional complaints Physical Exam Vital Signs: Last Vital Signs Pulse 77 10/13/22 09:41 BP 136/60 10/13/22 09:41 BMI result Body Mass Index 18.3 Const General: healthy appearing, no acute distress and well developed Nutritional Appearance: well nourished Orientation/consciousness: patient oriented x3 HEENT Head: Yes normal to inspection, Yes normocephalic and Yes atraumatic Face and sinus: Yes normal facial exam Mouth: Normal oral and palatal mucosa present Throat: Yes posterior oropharynx normal, Yes tonsils normal and Yes uvula midline Eyes General: appearance normal, both eyes and all related structures Neck Neck: Yes normal visual inspection, Yes full ROM and Yes trachea midline Thyroid: Thyroid normal Resp Effort & Inspection: normal respiratory effort, able to speak in complete sentences, no tracheal deviation and symmetric chest movement Auscultation: clear to auscultation bilaterally Cardio Rate: regular rate Heart sounds: S1 normal heart sound present and S2 normal heart sound present GI Inspection: Yes normal to inspection and No distended Palpation (GI): Soft to palpation, not firm, nontender and No hepatosplenomegaly present Auscultation: normal bowel sounds General: Yes no CVA tenderness Back/Spine/Pelvis Back: no CVA tenderness Skin General skin exam: elasticity normal, turgor normal and dry skin Neuro General: patient oriented x3 Psych Appearance: grossly normal Mental Status: mental status grossly normal Speech and movement: Normal speech and movement present Assessment & Plan Assessment & Plan (1) Tubular adenoma: Code(s): D36.9 - Benign neoplasm, unspecified site Plan: Tubular adenoma without high-grade dysplasia or carcinoma found. Patient will need to repeat colonoscopy in 5 years, sooner if clinically necessary. (2) Status post colonoscopy: Code(s): Z98.890 - Other specified postprocedural states Plan: Patient denies any ill effects from the prep, anesthesia or procedure itself. Patient had 2 polyps, 1 of the polyps was tubular adenoma. Patient will repeat colonoscopy in 5 years. High-fiber diet encouraged. Patient will be drinking more fluids. Patient will follow-up with us on as-needed basis. She is agreeable to this plan and verbalizes understanding of instructions. She was given the opportunity to ask questions and all questions answered. Thank you for allowing me to participate in her care Coding Level of Care Code Est Pt Level 3 (21096) Diagnoses Tubular adenoma D36.9 Status post colonoscopy Z98.890 Time Spent (min) 25 Comment 15 minutes spent with patient and additional 10 minutes spent reviewing her records
== END 2022-10-13 10:53 | disposition home or self-care (01) ==
PROVIDERS: PCP Internal Medicine; Visit Provider Nurse Practitioner Family
DX: D36.9 Benign neoplasm, unspecified site (principal); Z98.890 Other specified postprocedural states
CPT/HCPCS: 99213

== ENCOUNTER → 2022-10-13 09:32 | Outpatient (BNVA) | payer MEDICAID, SELFPAY | PROVIDERS: PCP Internal Medicine; Visit Provider Nurse Practitioner Family | DX: D12.4 Benign neoplasm of descending colon (principal); K63.5 Polyp of colon; Z98.890 Other specified postprocedural states | CPT/HCPCS: 99212 ==

== ENCOUNTER 2023-01-11 08:27 | Outpatient (REF) | payer MEDICAID, SELFPAY ==
[2023-01-11 11:09] LABS: Estimated Average Glucose 120 mg/dL; Hemoglobin A1c % 5.8 % (<6.0)
[2023-01-11 11:40] LABS: Alanine Aminotransferase 14 U/L (0-31); Anion Gap 14 (12-20); Aspartate Amino Transferase 20 U/L (5-31); Blood Urea Nitrogen 31 mg/dL (9-16); Calcium 9.6 mg/dL (8.4-10.2); Carbon Dioxide 26 mmol/L (22-29); Chloride 107 mmol/L (96-108); Cholesterol 245 mg/dL (<200); Estimated Glomerular Filt Rate > 60; Glucose Fasting 113 mg/dL (60-99); HDL Cholesterol 93 mg/dL (>40); LDL Cholesterol Calculated 137 mg/dL (<100); Potassium 3.9 mmol/L (3.3-5.1); Sodium 143 mmol/L (135-145); Triglycerides 76 mg/dL (<150); Vitamin D 25-OH Total 42.6 ng/mL (>30)
== END 2023-01-11 08:28 | disposition home or self-care (01) ==
LOC: HO.HMGCLDS 08:27
PROVIDERS: PCP Internal Medicine; Visit Provider Internal Medicine
DX: E55.9 Vitamin D deficiency, unspecified (principal); M81.0 Age-related osteoporosis without current pathological fracture; R73.01 Impaired fasting glucose; E78.5 Hyperlipidemia, unspecified; I10 Essential (primary) hypertension; Z78.0 Asymptomatic menopausal state
CPT/HCPCS: 36415; 80048; 80061; 82306; 83036; 84450; 84460

== ENCOUNTER 2023-01-12 08:41 | Outpatient (AMB) | payer MEDICAID, SELFPAY ==
[2023-01-12 09:08] VITALS: BP 118/86; PULSE 73; O2SAT 100; BMI 19.1
--- NOTE | 2023-01-12 09:08 | A.OFFPC_ITS ---
Vital Signs 01/12/23 09:08 Height 4 ft 11 in Weight 94 lb 6 oz BMI 19.1 BP 118/86 Blood Pressure Location Lt brachial Position Sitting Pulse 73 Pulse Source Pulse Oximeter Pulse Oximetry (%) 100 Oxygen Delivery Method Room Air Intake Visit Reasons: 3m follow up (Med) Intake Note: Pt is here to follow up for lab results Allergies No Known Allergies Allergy (Verified 01/12/23 09:47) Medication List - Last Reconciled 01/12/23 by Donna Romero MD albuterol sulfate 90 mcg/actuation inhalation atorvastatin 10 mg PO DAILY cholecalciferol (vitamin D3) 25 mcg PO DAILY durgjxkhdjq-cdavdpjdl-qzlaqlej 100-62.5-25 mcg inhalation nabumetone 500 mg PO BID PRN omeprazole mg PO paroxetine HCl 40 mg PO QAM pramipexole 0.25 mg PO BEDTIME Tobacco use date assessed: 01/12/23 Fall risk assessment: No Falls in past year Last assessed Fall Risk: 01/12/23 Dental Screening Dental Screen Date: 01/12/23 Did you have a dental visit in the last 12 months?: No Did you have a dental problem in the last 6 months where you did not have access to dental care?: No Was dental information given to patient?: No HPI 3m follow up (Med) HPI Details 67-year-old lady with hyperlipidemia, ge neralized anxiety disorder, restless leg syndrome, here today for follow-up on results of recent labs done. She has been compliant with taking her medications, tries to follow recommended diet, continues to smoke cigarettes, unmotivated to quit at present time. Has been having recurrent pain in her right shoulder, mainly on the anterior aspect, worse with raising arm overhead or carrying, or lifting anything with the right hand. She has been applying heat to affected area and taking nabumetone, which has not afforded any significant relief. [facility] Medical History Tubular adenoma Chronic right shoulder pain Hiatal hernia Colon cancer screening Generalized anxiety disorder Elbow pain, right Shoulder pain, right Polyarthralgia Leg cramps Vitamin D deficiency Squamous cell carcinoma Osteoporosis Menopause Osteopenia of multiple sites Cigarette smoker motivated to quit Restless leg syndrome COPD (chronic obstructive pulmonary disease) Impaired fasting glucose Fall Dyslipidemia Essential hypertension Surgical History Hx of colonoscopy S/P partial lobectomy of lung History of fusion of cervical spine History of hernia repair Family History Father Esophageal cancer Mother Cirrhosis HTN (hypertension) Diabetes mellitus Liver problem Brother Mental health disorder Daughter No problems noted. Social History Housing: House Alcohol intake: never Patient Tobacco Use Status: Current everyday Tobacco user Tobacco use type: Cigarette Cigarettes Per Day: 1 Years Smoked: 50 Packs per year/per ci.50 e-Cigarette/Vaping Use: Never Used service: No Current occupational status: disabled Current occupation: right hand dominant Cognitive needs: No Hearing needs: No Vision needs: No Questionnaire Thrive Questionnaire Date Thrive assessed: 03/17/22 JENAE-7 AMB Questionnaire JENAE-7 Date JENAE - 7 assessed: 01/12/23 Feeling nervous, anxious, or on edge: 1 = Several days Not being able to stop or control worryin = Not at all Worrying too much about different things: 1 = Several days Trouble relaxin = Not at all Being so restless that it is hard to sit still: 0 = Not at all Becoming easily annoyed or irritable: 0 = Not at all Feeling afraid as if something awful might happen: 0 = Not at all Total JENAE-7 score (0-4 normal; 5-9 mild; 10-14 moderate; 15-21 severe): 2 Source: Developed by Drs. Alexi Yadav, Brenda Barahona, Alonzo Smiley and colleagues, with an educational livia from [employer]. JENAE-7 Assessment Billing JENAE-7 Assessment Tool: JENAE-7 Assessment 71955 Review of Systems Const Denies fatigue, Denies headache(s) and Denies malaise ENT Denies change in voice, Denies dysphagia, Denies headache(s) and Denies hoarseness Card Denies chest pain, Denies irregular heart rhythm and Denies dyspnea Resp Denies cough and Denies dyspnea GI Denies abdominal pain, Denies change in bowel habits, Denies dysphagia, Denies diarrhea and Denies nausea Musc Denies myalgias, Denies muscle cramps, Denies numbness, Reports stiffness and Denies tingling Skin/Breast Denies rash Neuro Denies headache(s), Denies numbness and Denies tingling Psych Reports as per HPI Endo Denies fatigue and Denies heat intolerance Physical exam (Primary Care) Vital Signs: Last Vital Signs Pulse 73 01/12/23 09:08 BP 118/86 01/12/23 09:08 Pulse Ox 100 01/12/23 09:08 Oxygen Delivery Method Room Air 01/12/23 09:08 BMI result Body Mass Index 19.1 Tobacco/Smoking Status: Tobacco use Status Tobacco use date assessed 01/12/23 01/12/23 09:13 Patient Tobacco Use Status Current everyday Tobacco 01/12/23 09:13 Tobacco use type Cigarette 01/12/23 09:13 e-Cigarette/Vaping Use Never Used 01/12/23 09:13 Thrive Assessment: Date of Thrive Assessment Date Thrive assessed 03/17/22 01/12/23 09:13 Const Other: Alert oriented x3, no acute cardiorespiratory distress noted ambulatory normal g ait Orientation/consciousness: patient oriented x3 HENMT Face and sinus: Yes face symmetric Mouth: Normal oral and palatal mucosa present, tongue normal and moist mucous membranes Neck Other: Supple with no lymphadenopathy, thyroid gland nonpalpable Resp Auscultation: clear to auscultation bilaterally Cardio Other: S1-S2 present regular rate and rhythm 1+ dorsalis pedis pulse and popliteal tibial pulse bilaterally GI Inspection: Yes normal to inspection Palpation (GI): Soft to palpation, nontender, no guarding and no masses Neuro General: patient oriented x3, gait normal, tone normal, moves all extremities, Normal light touch and pain sensation, no focal motor deficits and CN's II-XI intact bilaterally Extrem Other: Decreased range of motion in right shoulder joint with pain on abduction more than 90 degrees. General: Yes no pedal edema and Yes normal gait Psych Appearance: grossly normal Mental Status: mental status grossly normal Speech and movement: Normal speech and movement present Affect: normal affect Attitude: cooperative Thought process: Normal thought process present Thought content: Normal thought content present Results Reviewed Results Reviewed: ENTERED: 01/11/23 OTHR DODGE: ORDERED: Met Prof Fast, AST, ALT, Lipid Panel, Vitamin D 25-OH Test Result Flag Reference Site Sodium 143 135-145 mmol/L Potassium 3.9 3.3-5.1 mmol/L CL 107 96-108 mmol/L CO2 26 22-29 mmol/L Gap 14 12-20 BUN 31 H 9-16 mg/dL Creat 0.75 0.5-1.4 mg/dL EGFR > 60 NOTE: For -[place] individuals, multiply the result by 1.210. Chronic Kidney Disease: Estimated GFR < 60 mL/min/1.73m2 Severe Kidney Disease: Estimated GFR < 15 mL/min/1.73m2 FBS 113 H 60-99 mg/dL A fasting glucose from 100-125 mg/dl is considered impaired (pre-diabetes). CA 9.6 8.4-10.2 mg/dL AST (GOT) 20 5-31 U/L ALT (GPT) 14 0-31 U/L Triglyceride 76 <150 mg/dL Desirable Triglyceride: less than 150 mg/dL Borderline High Triglyceride 150-199 mg/dL High Triglyceride: 200-499 mg/dL Very High Triglyceride: greater than or equal to 5OO mg/dL Cholesterol 245 H <200 mg/dL Desirable Cholesterol: less than 200 mg/dL Borderline High Cholesterol: 200-239 mg/dL High Cholesterol: greater than 239 mg/dL LDL Calculated 137 H <100 mg/dL Desirable LDL: less than 100 mg/dL Near Optimal/Above Optimal LDL: 110-129 mg/dL Borderline High LDL: 130-159 mg/dL High LDL: 160-189 mg/dL Very High LDL: greater than or equal to 190 mg/dL HDL 93 >40 mg/dL Desirable HDL: greater than 40 mg/dL Note: This HDL assay may give artificially low results in patients with liver disease. Vit D 25-OH Tot 42.6 >30 ng/mL Health Based Reference Values* < 20 ng/mL Deficient 20-30 ng/mL Insufficient > 30 ng/mL Sufficient Laboratory Tests 01/11/23 08:30 Estimat Average Glucose 120 Hemoglobin A1c % 5.8 Assessment and Plan Assessment & Plan (1) Generalized anxiety disorder: Code(s): F41.1 - Generalized anxiety disorder Plan: Anxiety disorder controlled with current treatment. Continue paroxetine 40 mg once a day in a.m. (2) Essential hypertension: Code(s): I10 - Essential (primary) hypertension Plan: Blood pressure at goal of less than 130/80. Reinforced importance of following a low sodium diet, getting regular exercise, and lowering stress levels. Smoking cessation advised (3) Impaired fasting glucose: Code(s): R73.01 - Impaired fasting glucose Plan: Your fasting blood sugars elevated above 100 mg/dL. Impaired glucose metabolism O2 at risk for developing diabetes mellitus type 2, as well as heart attack and stroke later on. Lifestyle changes at just weight loss, healthy eating habits, and regular exercise are important, and can prevent the progression to diabetes (4) Dyslipidemia: Code(s): E78.5 - Hyperlipidemia, unspecified Plan: Reviewed recent fasting lipid profile with patient with LDL cholesterol elevated not at goal.. Continue with atorvastatin 10 mg daily , in addition to adherence to low-cholesterol diet and regular exercise, at least 30 minutes 3 to 4 times a week. Advised patient to make healthy food choices, eat more fruits, vegetables, whole grains, wild caught fish and low-fat dairy. Limit amount of meat and fried or fatty food products, as well as processed foods and fast foods. (5) Chronic right shoulder pain: Code(s): M25.511 - Pain in right shoulder; G89.29 - Other chronic pain Plan: Referred to orthopedics for further evaluation and management Orders: Referrals Orthopedics Referral M25.511 - Pain in right shoulder, G89.29 - Other chronic pain Coding Level of Care Code Est Pt Level 4 (25031) Diagnoses Generalized anxiety disorder F41.1 Essential hypertension I10 Impaired fasting glucose R73.01 Dyslipidemia E78.5 Chronic right shoulder pain M25.511; G89.29 Additional Codes JENAE-7 Assessment Billing - JENAE-7 Assessment Tool: JENAE-7 Assessment 13606 ([id number])
== END 2023-01-12 10:01 | disposition home or self-care (01) ==
PROVIDERS: PCP Internal Medicine; Visit Provider Internal Medicine
DX: I10 Essential (primary) hypertension (principal); F41.1 Generalized anxiety disorder; R73.01 Impaired fasting glucose; E78.5 Hyperlipidemia, unspecified; M25.511 Pain in right shoulder; G89.29 Other chronic pain
CPT/HCPCS: 99214

== ENCOUNTER 2023-03-21 10:50 | Outpatient (AMB) | payer MEDICAID, SELFPAY ==
--- NOTE | 2023-03-21 11:01 | A.OFFPC_ITS ---
Vital Signs 03/21/23 11:04 Height 4 ft 11 in Weight 92 lb 2 oz BMI 18.6 BP 100/78 Blood Pressure Location Lt brachial Position Sitting Pulse 70 Pulse Source Pulse Oximeter Pulse Oximetry (%) 98 Oxygen Delivery Method Room Air Intake Visit Reasons: Annual Physcial Intake Note: Pt is here today for her PE Last mammogram 06/26/22, bone density scan 03/28/20, colonoscopy 09/29/22 Allergies No Known Allergies Allergy (Verified 03/21/23 11:30) Medication List - Last Reconciled 03/21/23 by Donna Romero MD albuterol sulfate 90 mcg/actuation inhalation atorvastatin 10 mg PO DAILY cholecalciferol (vitamin D3) 25 mcg PO DAILY eishblkeplm-lewlexttr-dtxidenz 100-62.5-25 mcg inhalation nabumetone 500 mg PO BID PRN omeprazole mg PO paroxetine HCl 40 mg PO QAM pramipexole 0.25 mg PO BEDTIME Tobacco use date assessed: 03/21/23 Fall risk assessment: No Falls in past year Last assessed Fall Risk: 03/21/23 Dental Screening Dental Screen Date: 03/21/23 Did you have a dental visit in the last 12 months?: No Was dental information given to patient?: No HPI Annual Physcial HPI Details 67-year-old lady with hypertension, hype rlipidemia, osteoporosis, COPD, chronic smoker with no motivation to quit at present time, has impaired fasting glucose, restless legs syndrome, generalized anxiety disorder and polyarthralgia here today for her physical exam. She is up-to-date with her mammogram , done 06/26/22, had a bone density scan 03/28/20, and last screening colonoscopy was done 09/29/22 . She has been feeling well with no new complaints at present time. [facility] Medical History (Updated 03/23/23 @ 00:49 by Donna Romero MD) Tubular adenoma Chronic right shoulder pain Hiatal hernia Colon cancer screening Generalized anxiety disorder Elbow pain, right Shoulder pain, right Polyarthralgia Leg cramps Vitamin D deficiency Squamous cell carcinoma Osteoporosis Menopause Osteopenia of multiple sites Cigarette smoker motivated to quit Restless leg syndrome COPD (chronic obstructive pulmonary disease) Impaired fasting glucose Fall Dyslipidemia Essential hypertension Surgical History Hx of colonoscopy S/P partial lobectomy of lung History of fusion of cervical spine History of hernia repair Family History Father Esophageal cancer Mother Cirrhosis HTN (hypertension) Diabetes mellitus Liver problem Brother Mental health disorder Daughter No problems noted. Social History Housing: House Alcohol intake: never Patient Tobacco Use Status: Current everyday Tobacco user Tobacco use type: Cigarette Cigarettes Per Day: 1 Years Smoked: 50 e-Cigarette/Vaping Use: Never Used service: No Current occupational status: disabled Current occupation: right hand dominant Cognitive needs: No Hearing needs: No Vision needs: No Questionnaire PHQ-9 Over the last 2 weeks, how often have you been bothered by any of the following problems? 1. Little interest or pleasure in doing things: several days 2. Feeling down, depressed, or hopeless: not at all 3. Trouble falling or staying asleep, or sleeping too much: several days 4. Feeling tired or having little energy: more than half the days 5. Poor appetite or overeating: not at all 6. Feeling bad about yourself - or that you are a failure or have let yourself or your family down: not at all 7. Trouble concentrating on things, such as reading the newspaper or watching television: not at all 8. Moving or speaking so slowly that other people could have noticed. Or the opposite - being so fidgety or restless that you have been moving around a lot more than usual: not at all 9. Thoughts that you would be better off or of hurting yourself in some way: not at all Total score: 4 Depression Screening Interpretation: Negative Depression Screening Done: Yes 74024 - PHQ-9 Billing: Yes Source: Developed by Drs. Alexi Yadav, Brenda Barahona, Alonzo Smiley and colleagues, with an educational livia from [employer]. Thrive Questionnaire Date Thrive assessed: 03/21/23 I am a: Patient What is your living situation today?: I have a steady place to live Within the past 12 months, did the food you bought not last and you didn't have the money to get more?: Never true Within the past 12 months, did you worry whether your food would run out before you got money to buy more?: Never true Do you have trouble paying for medicines?: No Do you have trouble getting transportation to medical appointments?: No Do you have trouble paying your heating and electricity bill?: No Do you have trouble taking care of your child, family member or friend?: No Do you have trouble with day-to-day activities such as bathing, preparing meals, shopping, managing finances, etc.?: Yes Are you currently unemployed and looking for a job?: No Are you interested in more education?: No THRIVE Score: 0 AUDIT C Alcohol Use Questionnaire (AUDIT-C) 1. How often do you have a drink containing alcohol?: Monthly or less 2. How many drinks containing alcohol do you have on a typical day when you are drinking?: 1 or 2 3. How often do you have six or more drinks on one occasion?: Never Total Score: 1 JENAE-7 AMB Questionnaire JENAE-7 Date JENAE - 7 assessed: 03/21/23 Feeling nervous, anxious, or on edge: 0 = Not at all Not being able to stop or control worryin = Not at all Worrying too much about different things: 0 = Not at all Trouble relaxin = Several days Being so restless that it is hard to sit still: 0 = Not at all Becoming easily annoyed or irritable: 1 = Several days Feeling afraid as if something awful might happen: 0 = Not at all Total JENAE-7 score (0-4 normal; 5-9 mild; 10-14 moderate; 15-21 severe): 2 Source: Developed by Drs. Alexi Yadav, Brenda Barahona, Alonzo Smiley and colleagues, with an educational livia from [employer]. JENAE-7 Assessment Billing JENAE-7 Assessment Tool: JENAE-7 Assessment 71870 Review of Systems Const Denies fatigue, Denies headache(s) and Denies malaise Eyes Reports no additional complaints ENT Denies change in voice, Denies dysphagia, Denies headache(s) and Denies hoarseness Card Denies chest pain, Denies irregular heart rhythm and Denies dyspnea Resp Denies cough and Denies dyspnea GI Denies abdominal pain, Denies change in bowel habits, Denies dysphagia, Denies diarrhea and Denies nausea Reports no additional complaints Musc Denies myalgias, Denies muscle cramps, Denies numbness, Reports stiffness and Denies tingling Skin/Breast Denies rash Neuro Denies headache(s), Denies numbness and Denies tingling Psych Reports as per HPI Endo Denies fatigue and Denies heat intolerance Carlin/Lymph Reports no additional complaints Aller/Immun Reports no additional complaints Physical exam (Primary Care) Vital Signs: Last Vital Signs Pulse 70 03/21/23 11:04 BP 100/78 03/21/23 11:04 Pulse Ox 98 03/21/23 11:04 Oxygen Delivery Method Room Air 03/21/23 11:04 BMI result Body Mass Index 18.6 Tobacco/Smoking Status: Tobacco use Status Tobacco use date assessed 03/21/23 03/21/23 11:08 Patient Tobacco Use Status Current everyday Tobacco 03/21/23 11:08 Tobacco use type Cigarette 03/21/23 11:08 e-Cigarette/Vaping Use Never Used 03/21/23 11:08 PHQ-9: PHQ-9 Score PHQ-9: Total score 4 03/23/23 00:24 Depression Screening Interpretation: Negative Thrive Assessment: Date of Thrive Assessment Date Thrive assessed 03/21/23 03/21/23 11:44 Advance Care Planning discussion: On file, no changes Date of discussion: 03/21/23 Who was present: Patient Forms completed: Health Care Proxy Actual minutes spent: 16 Const Other: Alert oriented x3, no acute cardiorespiratory distress noted ambulatory normal gait Orientation/consciousness: patient oriented x3 HENMT Face and sinus: Yes face symmetric Mouth: Normal oral and palatal mucosa present, tongue normal and moist mucous membranes Eyes General: appearance normal, both eyes and all related structures Neck Other: Supple with no lymphadenopathy, thyroid gland nonpalpable Chest Breast/axilla palpation: normal palpation of the breasts Resp Auscultation: clear to auscultation bilaterally Cardio Other: S1-S2 present regular rate and rhythm 1+ dorsalis pedis pulse and popliteal tib ial pulse bilaterally GI Inspection: Yes normal to inspection Palpation (GI): Soft to palpation, nontender, no guarding and no masses General: Yes no CVA tenderness Back/Spine/Pelvis Back: no CVA tenderness and No back tenderness Skin General skin exam: no rashes or lesions noted Neuro General: patient oriented x3, gait normal, tone normal, moves all extremities, Normal light touch and pain sensation, no focal motor deficits and CN's II-XI intact bilaterally Extrem Other: Decreased range of motion in right shoulder joint with pain on abduction more than 90 degrees. General: Yes no pedal edema and Yes normal gait Psych Appearance: grossly normal Mental Status: mental status grossly normal Speech and movement: Normal speech and movement present Affect: normal affect Attitude: cooperative Thought process: Normal thought process present Thought content: Normal thought content present Results Reviewed Results Reviewed: RUN: 03/21/23 1131 PAGE 1 [facility] [address] [place] [id number] Card Game Operator: Aleksandar Hazel M.D. Specimen Inquiry Name: Jamila Ramírez Age/Sex: 67/F : 1955 Unit#: [id number] Attend Dr: Donna Romero MD Re01/11/23 Status: DEP REF Location: [facility] Disch: SPEC : [id number] FABRICE: 01/11/23 STATUS: COMP REQ : [id number] RECD: 01/11/23-[address]: Donna Romero MD COMP: 01/11/23 ENTERED: 01/11/[address]: ORDERED: Met Prof Fast, AST, ALT, Lipid Panel, Vitamin D 25-OH Test Result Flag Reference Sodium 143 135-145 mmol/L Potassium 3.9 3.3-5.1 mmol/L CL 107 96-108 mmol/L CO2 26 22-29 mmol/L Gap 14 12-20 BUN 31 H 9-16 mg/dL Creat 0.75 0.5-1.4 mg/dL EGFR > 60 NOTE: For -[place] individuals, multiply the result by 1.210. Chronic Kidney Disease: Estimated GFR < 60 mL/min/1.73m2 Severe Kidney Disease: Estimated GFR < 15 mL/mi n/1.73m2 FBS 113 H 60-99 mg/dL A fasting glucose from 100-125 mg/dl is considered impaired (pre-diabetes). CA 9.6 8.4-10.2 mg/dL AST (GOT) 20 5-31 U/L ALT (GPT) 14 0-31 U/L Triglyceride 76 <150 mg/dL Desirable Triglyceride: less than 150 mg/dL Borderline High Triglyceride 150-199 mg/dL High Triglyceride: 200-499 mg/dL Very High Triglyceride: greater than or equal to 5OO mg/dL Cholesterol 245 H <200 mg/dL Desirable Cholesterol: less than 200 mg/dL Borderline High Cholesterol: 200-239 mg/dL High Cholesterol: greater than 239 mg/dL LDL Calculated 137 H <100 mg/dL Desirable LDL: less than 100 mg/dL Near Optimal/Above Optimal LDL: 110-129 mg/dL Borderline High LDL: 130-159 mg/dL High LDL: 160-189 mg/dL Very High LDL: greater than or equal to 190 mg/dL HDL 93 >40 mg/dL Desirable HDL: greater than 40 mg/dL Note: This HDL assay may give artificially low results in patients with liver disease. Vit D 25-OH Tot 42.6 >30 ng/mL Health Based Reference Values* < 20 ng/mL Deficient 20-30 ng/mL Insufficient > 30 ng/mL Sufficient Assessment and Plan Assessment & Plan (1) Annual visit for general adult medical examination with abnormal findings: Code(s): Z00.01 - Encounter for general adult medical examination with abnormal findings Plan: Recent fasting lab results discussed with patient today. Continue with regular dental visit every 6 months and regular eye exams, at least every 2 years. Continue with calcium in diet and vitamin-D 3 at 2000 IU per cap once a day, in addition to weight-bearing exercises to help maintain good muscle tone and weight control. Instructed to do self-breast exam, and continue with yearly mammogram, starting at age 40. Her screening colonoscopy is due again in [address] Schmidt . Up-to-date with her pneumonia shot and Tdap, reminded to get a COVID booster vaccine and flu shot as well as the 2nd dose for shingles vaccine (2) Generalized anxiety disorder: Code(s): F41.1 - Generalized anxiety disorder Plan: Continue paroxetine HCL 40 mg p.o. q.a.m. (3) Essential hypertension: Code(s): I10 - Essential (primary) hypertension Plan: Blood pressure at goal of less than 130/80. Continue with current medication. Reinforced importance of following a low sodium diet, getting regular exercise, and lowering stress levels. (4) Impaired fasting glucose: Code(s): R73.01 - Impaired fasting glucose Plan: Your fasting blood sugars was elevated above 100 mg/dL. Impaired glucose metabolism O2 at risk for developing diabetes mellitus type 2, as well as heart attack and stroke later on. Lifestyle changes at just weight loss, healthy eating habits, and regular exercise are important, and can prevent the progression to diabetes (5) Dyslipidemia: Code(s): E78.5 - Hyperlipidemia, unspecified Plan: Fasting lipid panel ordered, continued on atorvastatin. Reinforced importance of following low-cholesterol diet and getting regular exercise (6) Osteoporosis: Code(s): M81.0 - Age-related osteoporosis without current pathological fracture Qualifiers: Encounter type: initial encounter Osteoporosis type: age-related Plan: Continue taking vitamin-D 3 supplements in addition to calcium dietary sources. Stressed importance of staying active and doing regular weight-bearing exercises. Missed appointment today with Dr. Givens, who she will be transferring care from Dr. Overton for treatment of her osteoporosis. Patient advised to reschedule appointment (7) Polyarthralgia: Code(s): M25.50 - Pain in unspecified joint Plan: Stressed importance of staying active, do stretches, prescription sent for refill on her nabumetone 500 mg per tablet to take 1 tablet twice a day only for severe pain. Cautioned that this may cause it gastric irritation as a side effect peer (8) Restless leg syndrome: Code(s): G25.81 - Restless legs syndrome Plan: Currently on pramipexole (9) Tubular adenoma: Code(s): D36.9 - Benign neoplasm, unspecified site Plan: Tubular adenoma removed in 2022 colonoscopy and repeat is due again in 2025 (10) Advanced directives, counseling/discussion: Code(s): Z71.89 - Other specified counseling Plan: Initiated the conversation about Advanced Directives. Advanced Directives help patients prepare for current and future decisions about their medical treatment and place of care. Discussed with patient that it is a process where a patients current condition and prognosis are reviewed, their wishes for information regarding their illness are elicited, and likely medical dilemmas are presented and options discussed. The form can be amended as needed, reviewed yearly and make changes as needed (11) COPD (chronic obstructive pulmonary disease): Code(s): J44.9 - Chronic obstructive pulmonary disease, unspecified Plan: Currently on prcwhedbfvl-hlttuhlzyeww-nslwkakmrr inhaler and, has a rescue inhaler with albuterol , which she rarely needs to use for episodes of bronchospasm and wheezing. Orders: Orders Lipid Panel 08/08/23 E78.5 - Hyperlipidemia, unspecified, F41.1 - Generalized anxiety disorder, I10 - Essential (primary) hypertension, R73.01 - Impaired fasting glucose, Z71.89 - Other specified counseling Alanine Aminotransferase 08/08/23 E78.5 - Hyperlipidemia, unspecified, F41.1 - Generalized anxiety disorder, I10 - Essential (primary) hypertension, R73.01 - Impaired fasting glucose, Z71.89 - Other specified counseling Aspartate Amino Transferase 08/08/23 E78.5 - Hyperlipidemia, unspecified, F41.1 - Generalized anxiety disorder, I10 - Essential (primary) hypertension, R73.01 - Impaired fasting glucose, Z71.89 - Other specified counseling Basic Metabolic Panel Fasting 08/08/23 I10 - Essential (primary) hypertension Medications: Refilled paroxetine HCl 40 mg PO QAM 90 tabs 1RF atorvastatin 10 mg PO DAILY 90 tabs 1RF E78.5 - Hyperlipidemia, unspecified Coding Level of Care Code Est Pt Prev Care >65y(04359) Diagnoses Annual visit for general adult medical examination with abnormal findings Z00.01 Generalized anxiety disorder F41.1 Essential hypertension I10 Impaired fasting glucose R73.01 Dyslipidemia E78.5 Osteoporosis M81.0 Encounter type: initial encounter Osteoporosis type: age-related Polyarthralgia M25.50 Restless leg syndrome G25.81 Tubular adenoma D36.9 Advanced directives, counseling/discussion Z71.89 COPD (chronic obstructive pulmonary disease) J44.9 Additional Codes JENAE-7 Assessment Billing - JENAE-7 Assessment Tool: JENAE-7 Assessment 83513 ([id number]) Vital Signs *Quality* - Advance Care Planning discussion: On file, no changes ([id number])
[2023-03-21 11:04] VITALS: BP 100/78; PULSE 70; O2SAT 98; BMI 18.6
== END 2023-03-21 11:49 | disposition home or self-care (01) ==
PROVIDERS: Visit Provider Internal Medicine
DX: Z00.00 Encounter for general adult medical examination without abnormal findings (principal); F41.1 Generalized anxiety disorder; J44.9 Chronic obstructive pulmonary disease, unspecified; I10 Essential (primary) hypertension; R73.01 Impaired fasting glucose; E78.5 Hyperlipidemia, unspecified; M81.0 Age-related osteoporosis without current pathological fracture; F17.210 Nicotine dependence, cigarettes, uncomplicated; M25.50 Pain in unspecified joint; G25.81 Restless legs syndrome; D36.9 Benign neoplasm, unspecified site; Z71.89 Other specified counseling
CPT/HCPCS: 1123F; 99397

== ENCOUNTER 2023-06-22 08:27 | Outpatient (AMB) | payer MEDICAID, SELFPAY ==
--- NOTE | 2023-06-22 08:30 | A.OFFVIS_ITS ---
Vital Signs 06/22/23 08:31 Height 4 ft 11 in Weight 91 lb 4.342 oz BMI 18.4 BP 140/92 H Blood Pressure Location Lt brachial Position Sitting Pulse 76 Pulse Source Pulse Oximeter Intake Visit Reasons: Osteoporosis-LVM Intake Note: Patient present today for Osteoporosis follow up visit. Last seen by Dr. Overton on 08/16/22. 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 The patient last saw Dr. Overton 08/16/2022 First diagnosed in 2020, prior to that she had Osteopenia. She was previously on Fosamax weekly. This was started in 2020. After her initial visit with me in November 2020 we stopped her Fosamax and HCTZ and she was asked to complete a full biochemical evaluation for secondary causes of O steoporosis, and F/U today to review the results. She did stop the Fosamax and HCTZ and did her workup, but unfortunately her urine collection was an insufficient collection with only 350 cc collected. She failed treatment with Fosamax because her BMD has worsened on this. No history of pathologic fracture or ONJ. Has 2-3 servings of dietary calcium per day in the form of milk, cheese and ensu re. She does not take a Calcium supplement. Takes 1000 IU of Vitamin D daily. Denies ever using PPI, anticoagulant, antiepileptic or glucocorticoid medication. Does weight bearing exercise 7 days per week in the form of walking and playing with her Grandkids. Fracture history: Had a traumatic fracture of her L arm and pelvis in 1989 when she fell out a window. No fragility fractures. Height loss: Denies BEATER HEAD history: Menarche was age 15. Menses were always regular. . She did not breastfeed. Menopause was age 54. She did not use HRT. Denies history of Kidney stones: Denies family history of Osteoporosis or hip fracture. UTD on dental cleanings and sees dentist every 6 months. No planned upcoming dental work or extractions. Of note, she was recently diagnosed with squamous cell carcinoma of the lung and underwent surgical resection. She states there is no plan for chemo or radiation at this time. DXA dated 03/28/2020: FINDINGS: AP SPINE L1-L2 (excluding L3 and L4): The data of L1-L4 has been changed to exclude the L3 and L4 vertebral bodies, because degenerative changes at this level may cause overestimation of lumbar spine density. Current: BMD 0.979 g/cm2, Z-score 0.8, T-score -1.6, osteopenia, 2.9% decrease from baseline (<5% change is not significant). Baseline: BMD 1.008 g/cm2. LEFT FEMUR, NECK: Current: BMD 0.632 g/cm2, Z-score -0.9, T-score -2.9, osteoporosis. Baseline: BMD 0.705 g/cm2. LEFT FEMUR, TOTAL: Current: BMD 0.684 g/cm2, Z-score -0.8, T-score -2.6, osteoporosis, 5.8% decrease from baseline (<5% change is not significant). Baseline: BMD 0.726 g/cm2. Labs: Laboratory Tests 04/08/21 07/20/21 07/20/21 09:03 09:23 09:23 Creatinine 0.78 Estimated GFR > 60 PEP Interpretation SEE NOTE N-Telopeptide X-linked 25-OH Vitamin D Total 32.4 PTH Intact 46 Calcium (PTH Intact) 9.8 07/21/21 08:30 Creatinine Estimated GFR PEP Interpretation N-Telopeptide X-linked 44 25-OH Vitamin D Total PTH Intact Calcium (PTH Intact) Took a short couse of fosamax . No fragility fx. Smoking 2 cigs/day. Taking calcium and vitamin D [facility] Medical History (Updated 03/23/23 @ 00:49 by Donna Romero MD) Tubular adenoma Chronic right shoulder pain Hiatal hernia Colon cancer screening Generalized anxiety disorder Elbow pain, right Shoulder pain, right Polyarthralgia Leg cramps Vitamin D deficiency Squamous cell carcinoma Osteoporosis Menopause Osteopenia of multiple sites Cigarette smoker motivated to quit Restless leg syndrome COPD (chronic obstructive pulmonary disease) Impaired fasting glucose Fall Dyslipidemia Essential hypertension Surgical History Hx of colonoscopy S/P partial lobectomy of lung History of fusion of cervical spine History of hernia repair Family History Father Esophageal cancer Mother Cirrhosis HTN (hypertension) Diabetes mellitus Liver problem Brother Mental health disorder Daughter No problems noted. Social History Housing: House Alcohol intake: never Patient Tobacco Use Status: Current everyday Tobacco user Tobacco use type: Cigarette Cigarettes Per Day: 1 Years Smoked: 50 e-Cigarette/Vaping Use: Never Used service: No Current occupational status: disabled Current occupation: right hand dominant Cognitive needs: No Hearing needs: No Vision needs: No Physical Exam Vital Signs: Last Vital Signs Pulse 76 06/22/23 08:31 BP 140/92 H 06/22/23 08:31 BMI result Body Mass Index 18.4 Const Other: Thyroid gland is normal size weighs about 15 g. There are no thyroid nodules palpable. There is no tenderness on palpation of the spine Assessment & Plan Assessment & Plan (1) Osteoporosis: Code(s): M81.0 - Age-related osteoporosis without current pathological fracture Category: Medical Qualifiers: Osteoporosis type: age-related Encounter type: initial encounter Plan: 67-year-old white female with a history of osteoporosis. Secondary workup was negative. Patient had previously taken oral bisphosphonate with declining bone density Plan is to repeat the DEXA bone density with VFA. Pending upon the above could consider either intravenous bisphosphonate like Reclast or using Prolia. If DEXA bone density shows declining bone density and/or VF a shows a fracture, would then use anabolic therapy initially Orders: Orders XR DEXA axial skeleton Today M81.0 - Age-related osteoporosis without current pathological fracture Coding Level of Care Code Est Pt Level 3 (84749) Diagnoses Osteoporosis M81.0 Osteoporosis type: age-related Encounter type: initial encounter
[2023-06-22 08:31] VITALS: BP 140/92; PULSE 76; BMI 18.4
== END 2023-06-22 09:20 | disposition home or self-care (01) ==
PROVIDERS: PCP Internal Medicine; Visit Provider Internal Medicine Endocrinology, Diabetes & Metabolism
DX: M81.0 Age-related osteoporosis without current pathological fracture (principal)
CPT/HCPCS: 99213

== ENCOUNTER → 2023-06-22 08:27 | Outpatient (BNVA) | payer MEDICAID, SELFPAY | PROVIDERS: PCP Internal Medicine; Visit Provider Internal Medicine Endocrinology, Diabetes & Metabolism | DX: M81.0 Age-related osteoporosis without current pathological fracture (principal) | CPT/HCPCS: 99212 ==

== ENCOUNTER 2023-08-10 08:37 | Outpatient (REF) | payer MEDICAID, SELFPAY ==
--- NOTE | ~2023-08-10 | MM_ITS ---
EXAMINATION: MM SCREENING DIGITAL BREAST TOMOSYNTHESIS, BILATERAL CLINICAL INFORMATION: Screening. Asymptomatic. COMPARISON: Mammography: This study is compared with prior exams dating back to 2019. TECHNIQUE: Digital breast tomosynthesis is performed in both the craniocaudal and mediolateral oblique views along with computer-aided detection (CAD). Synthesized 2D images are generated from the tomosynthesis. FINDINGS: The breasts are extremely dense, which lowers the sensitivity of mammography (ACR BI-RADS breast composition Category d). There are no significant masses, abnormal calcifications, or other abnormalities. MM/MM tomosynthesis screening BI IMPRESSION: No mammographic evidence of malignancy. ASSESSMENT: BI-RADS BI-RADS 1 - Negative RECOMMENDATION: Routine annual mammography screening. 1 year F/U This examination should not preclude the clinical evaluation of a suspicious palpable abnormality. This patient's information was entered into a reminder system with a target due date for their next mammogram.
--- NOTE | ~2023-08-10 | MM_ITS ---
EXAMINATION: BONE DENSITOMETRY CLINICAL INDICATION: Age-related osteoporosis without current pathological fracture. COMPARISON: Previous BD dated 03/28/2020 and baseline BD dated 10/20/2017. TECHNIQUE: Using a [employer] DXA System (software version: 13.1) manufactured by [employer], dual-energy x-ray absorptiometry was performed of the lumbar spine and left hip. The images are of good technical quality. Summary results are attached. FINDINGS: AP SPINE L1-L2 (excluding L3 and L4): The data of L1-L4 has been changed to exclude the L3 and L4 vertebral bodies, because degenerative sclerosis at these levels may cause overestimation of lumbar spine density. Current: BMD 1.023 g/cm2, Z-score 1.3, T-score -1.2, osteopenia, 4.5% increase from previous, 1.5% increase from baseline (<5% change is not significant). Prior: BMD 0.979 g/cm2. Baseline: BMD 1.008 g/cm2. LEFT FEMUR, NECK: Current: BMD 0.697 g/cm2, Z-score -0.3, T-score -2.5, osteoporosis. Prior: BMD 0.632 g/cm2. Baseline: BMD 0.705 g/cm2. LEFT FEMUR, TOTAL: Current: BMD 0.721 g/cm2, Z-score -0.3, T-score -2.3, osteopenia, 5.4% increase from previous, 0.7% decrease from baseline (<5% change is not significant). Prior: BMD 0.684 g/cm2. Baseline: BMD 0.726 g/cm2. IDENTIFIED RISK FACTORS: Early menopause, family history (parent hip fracture), history of fracture (adult), low body weight, osteoporosis, tobacco use (current smoker), secondary osteoporosis. HISTORY OF FRACTURE: Spine, wrist, elbow, forearm, humerus, pelvis, shoulder. MEDICATIONS: Vitamin D. MM/XR DEXA axial skeleton IMPRESSION: 1. DIAGNOSIS: Severe osteoporosis based on the lowest T-score value of -2.5 in the left femur neck and history of fractures applying World Health Organization criteria. 2. 10-YEAR FRACTURE RISK PREDICTION, FRAX: According to the guidelines, FRAX calculation should only be performed on patients in the osteopenia bone density category. Therefore, FRAX was not performed on this patient. 3. Treatment Recommendations: NOF guidelines recommend consideration for treatment in postmenopausal women and men age 50 and older presenting with the following: -A hip or vertebral (clinical or morphometric) fracture. -T-score less than or equal to -2.5 at the femoral neck or spine after appropriate evaluation to exclude secondary causes. -Low bone mass at the hip or spine and a 10-year fracture probability by FRAX of greater than or equal to 3% for hip fracture or greater than or equal to 20% for major osteoporotic fracture based on the [place] adapted WHO algorithm. 4. Other Recommendations: All treatment decisions require clinical judgment and consideration of individual patient factors, including patient preferences, comorbidities, previous drug use, risk factors not captured in the FRAX model (e.g. frailty, falls, vitamin D deficiency, increased bone turnover, interval significant decline in bone density) and possible under or overestimation of fracture risk by FRAX. Additional medical evaluation for secondary cause of low bone mineral density may be appropriate. FUTURE SCAN RECOMMENDATION: People with diagnosed cases of osteoporosis or at high risk for fracture should have regular bone mineral density tests. For patients eligible for Medicare, routine testing is allowed once every 2 years. The testing frequency can be increased to one year for patients who have rapidly progressing disease, those who are receiving or discontinuing medical therapy to restore bone mass, or have additional risk factors.
== END 2023-08-10 08:38 | disposition home or self-care (01) ==
LOC: HO.MAMMO 08:37
PROVIDERS: PCP Internal Medicine; Visit Provider Internal Medicine Endocrinology, Diabetes & Metabolism
DX: Z12.31 Encounter for screening mammogram for malignant neoplasm of breast (principal); M81.0 Age-related osteoporosis without current pathological fracture
CPT/HCPCS: 77063; 77067; 77080

== ENCOUNTER → 2023-08-10 09:00 | Outpatient (BNV) | payer MEDICAID, SELFPAY | PROVIDERS: PCP Internal Medicine; Visit Provider Radiology Diagnostic Radiology | DX: Z12.31 Encounter for screening mammogram for malignant neoplasm of breast (principal) | CPT/HCPCS: 77063; 77067 ==

== ENCOUNTER 2023-08-25 08:24 | Outpatient (REF) | payer MEDICAID, SELFPAY ==
--- NOTE | ~2023-08-25 | MM_ITS ---
EXAMINATION: DXA VERTEBRAL FRACTURE ASSESSMENT CLINICAL INFORMATION: Age-related osteoporosis COMPARISON: DEXA study of August 10, 2023. TECHNIQUE: Your patient completed a vertebral fracture assessment using the [employer] DXA system (software version: 14.10) manufactured by [employer]. The following summarizes the results of our evaluation. LVA MORPHOMETRY RESULTS: Evaluation of the thoracolumbar spine from T4 through L4 was performed. Image quality is good. There is an approximately 40% compression fracture of T7. There is a mild, less than 30% posterior T5 wedging. The lowest Z score is -4.0. The highest Z score is 2.8. MM/XR DEXA vertrebral fracture IMPRESSION: T7 compression fracture. This was not present on previous CT scan of the chest of May 14, 2015 RECOMMENDATIONS: All patients should ensure an adequate intake of dietary calcium (1200 mg/d) and vitamin D (400-800 IU/d). Effective therapies are now available in the form of bisphosphonates, (alendronate, ibandronate, risedronate, zoledronic acid), antiresorptive agents (calcitonin, estrogen + progesterone and raloxifene) and anabolic agent (teriparatide). These therapies may reduce vertebral, hip and other fractures by up to 50%. FOLLOW UP: People with diagnosed cases of osteoporosis, high risk for fracture, or current vertebral fractures should have regular bone mineral density tests. The frequency of followup vertebral fracture assessment tests should be determined based on clinical circumstances. Often times, testing frequency will be based on rapidly progressing disease, or the addition or elimination of therapy to treat the disease.
== END 2023-08-25 08:25 | disposition home or self-care (01) ==
LOC: HO.MAMMO 08:24
PROVIDERS: PCP Internal Medicine; Visit Provider Internal Medicine Endocrinology, Diabetes & Metabolism
DX: M81.0 Age-related osteoporosis without current pathological fracture (principal)
CPT/HCPCS: 77086

== ENCOUNTER 2023-09-13 07:52 | Outpatient (REF) | payer MEDICAID, SELFPAY ==
[2023-09-13 11:24] LABS: Alanine Aminotransferase 19 U/L (0-31); Anion Gap 15 (12-20); Aspartate Amino Transferase 20 U/L (5-31); Blood Urea Nitrogen 21 mg/dL (9-16); Calcium 9.3 mg/dL (8.4-10.2); Carbon Dioxide 27 mmol/L (22-29); Chloride 106 mmol/L (96-108); Cholesterol 198 mg/dL (<200); Estimated Glomerular Filt Rate > 60; Glucose Fasting 105 mg/dL (60-99); HDL Cholesterol 83 mg/dL (>40); LDL Cholesterol Calculated 100 mg/dL (<100); Potassium 4.1 mmol/L (3.3-5.1); Sodium 144 mmol/L (135-145); Triglycerides 78 mg/dL (<150)
== END 2023-09-13 07:53 | disposition home or self-care (01) ==
LOC: HO.HMGCLDS 07:52
PROVIDERS: PCP Internal Medicine; Visit Provider Internal Medicine
DX: F41.1 Generalized anxiety disorder (principal); I10 Essential (primary) hypertension; R73.01 Impaired fasting glucose; E78.5 Hyperlipidemia, unspecified; Z71.89 Other specified counseling
CPT/HCPCS: 36415; 80048; 80061; 84450; 84460

== ENCOUNTER 2023-11-09 08:40 | Outpatient (AMB) | payer MEDICAID, SELFPAY ==
[2023-11-09 08:41] VITALS: BP 88/72; BMI 17.7
--- NOTE | 2023-11-09 08:41 | MHC.OFFVIS ---
Vital Signs 11/09/23 08:41 Height 4 ft 11 in Weight 87 lb 11.904 oz BMI 17.7 BP 88/72 L Blood Pressure Location Lt brachial Position Sitting Intake Visit Reasons: Osteoporosis-lvm Environmental Aide Required: No Accompanied by: Self / Same As Patient Allergies No Known Allergies Allergy (Verified 11/09/23 08:47) HPI Comments Details: 68 YO Female with PMHx Osteoporosis, who is seen in F/U for Osteoporosis. First diagnosed in 2020, prior to that she had Osteopenia. She was previously on Fosamax weekly. This was started in 2020. After her initial visit with me in November 2020 we stopped her Fosamax and HCTZ and she was asked to complete a full biochemical evaluation for secondary causes of Osteoporosis, and F/U today to review the results. She did stop the Fosamax and HCTZ and did her workup, but unfortunately her urine collection was an insufficient collection with only 350 cc collected. She failed treatment with Fosamax because her BMD has worsened on this. No history of pathologic fracture or ONJ. Has 2-3 servings of dietary calcium per day in the form of milk, cheese and ensure. She does not take a Calcium supplement. Takes 1000 IU of Vitamin D daily. Denies ever using PPI, anticoagulant, antiepileptic or glucocorticoid medication. Does weight bearing exercise 7 days per week in the form of walking and playing with her Grandkids. Fracture history: Had a traumatic fracture of her L arm and pelvis in 1989 when she fell out a window. No fragility fractures. 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 Menses were always regular. . She did not breastfeed. Menopause was age 54. She did not use HRT. Denies history of Kidney stones: Denies family history of Osteoporosis or hip fracture. UTD on dental cleanings and sees dentist every 6 months. No planned upcoming dental work or extractions. Of note, she was recently diagnosed with squamous cell carcinoma of the lung and underwent surgical resection. She states there is no plan for chemo or radiation at this time. DXA dated 03/28/2020: FINDINGS: AP SPINE L1-L2 (excluding L3 and L4): The data of L1-L4 has been changed to exclude the L3 and L4 vertebral bodies, because degenerative changes at this level may cause overestimation of lumbar spine density. Current: BMD 0.979 g/cm2, Z-score 0.8, T-score -1.6, osteopenia, 2.9% decrease from baseline (<5% change is not significant). Baseline: BMD 1.008 g/cm2. LEFT FEMUR, NECK: Current: BMD 0.632 g/cm2, Z-score -0.9, T-score -2.9, osteoporosis. Baseline: BMD 0.705 g/cm2. LEFT FEMUR, TOTAL: Current: BMD 0.684 g/cm2, Z-score -0.8, T-score -2.6, osteoporosis, 5.8% decrease from baseline (<5% change is not significant). Baseline: BMD 0.726 g/cm2. Labs: Laboratory Tests 04/08/21 07/20/21 07/20/21 09:03 09:23 09:23 Creatinine 0.78 Estimated GFR > 60 PEP Interpretation SEE NOTE N-Telopeptide X-linked 25-OH Vitamin D Total 32.4 PTH Intact 46 Calcium (PTH Intact) 9.8 07/21/21 08:30 Creatinine Estimated GFR PEP Interpretation N-Telopeptide X-linked 44 25-OH Vitamin D Total PTH Intact Calcium (PTH Intact) Took a short couse of fosNOVASYS MEDICALx . No fragility fx. Smoking 2 cigs/day. Taking calcium and vitamin D . Repeat DEXA with VFA showed depressions of T7 compression fracture . Complain of pain in the base of the back [facility] Medical History (Updated 03/23/23 @ 00:49 by Donna Romero MD) Tubular adenoma Chronic right shoulder pain Hiatal hernia Colon cancer screening Generalized anxiety disorder Elbow pain, right Shoulder pain, right Polyarthralgia Leg cramps Vitamin D deficiency Squamous cell carcinoma Osteoporosis Menopause Osteopenia of multiple sites Cigarette smoker motivated to quit Restless leg syndrome COPD (chronic obstructive pulmonary disease) Impaired fasting glucose Fall Dyslipidemia Essential hypertension Surgical History Hx of colonoscopy S/P partial lobectomy of lung History of fusion of cervical spine History of hernia repair Family History Father Esophageal cancer Mother Cirrhosis HTN (hypertension) Diabetes mellitus Liver problem Brother Mental health disorder Daughter No problems noted. Social History (Reviewed 11/09/23 @ 08:50 by SHAQUILLE De Guzman Housing: House Alcohol intake: never Patient Tobacco Use Status: Current everyday Tobacco user Tobacco use type: Cigarette Cigarettes Per Day: 1 Years Smoked: 50 e-Cigarette/Vaping Use: Never Used service: No Current occupational status: disabled Current occupation: right hand dominant Cognitive needs: No Hearing needs: No Vision needs: No Physical Exam Vital Signs: Last Vital Signs BP 88/72 L 11/09/23 08:41 BMI result Body Mass Index 17.7 Const Other: There is no pain on palpation of the spine Assessment & Plan Assessment & Plan (1) Osteoporosis: Code(s): M81.0 - Age-related osteoporosis without current pathological fracture Category: Medical Qualifiers: Osteoporosis type: age-related Encounter type: initial encounter Plan: 67-year-old white female with a history of osteoporosis. Secondary workup was negative. Patient had previously taken oral bisphosphonate with declining bone density Plan is to repeat the DEXA bone density with VFA. Pending upon the above could consider either intravenous bisphosphonate like Reclast or using Prolia. If DEXA bone density shows declining bone density and/or VF a shows a fracture, would then use anabolic therapy initially. I do not think the patient's lower back pain is related to the T7 compression fracture but made a referral to Orthopedics for evaluation Orders: Referrals Orthopedics Referral M81.0 - Age-related osteoporosis without current pathological fracture Coding Level of Care Code Est Pt Level 3 (46012) Diagnoses Osteoporosis M81.0 Osteoporosis type: age-related Encounter type: initial encounter
== END 2023-11-09 09:38 | disposition home or self-care (01) ==
PROVIDERS: PCP Internal Medicine; Visit Provider Internal Medicine Endocrinology, Diabetes & Metabolism
DX: M81.0 Age-related osteoporosis without current pathological fracture (principal)
CPT/HCPCS: 99213

== ENCOUNTER → 2023-11-09 08:40 | Outpatient (BNVA) | payer MEDICAID, SELFPAY | PROVIDERS: PCP Internal Medicine; Visit Provider Internal Medicine Endocrinology, Diabetes & Metabolism | DX: M81.0 Age-related osteoporosis without current pathological fracture (principal) | CPT/HCPCS: 99212 ==

== ENCOUNTER 2023-11-17 09:00 | Outpatient (AMB) | payer MEDICAID, SELFPAY ==
--- NOTE | 2023-11-17 09:18 | MHC.OFFVIS ---
Vital Signs 11/17/23 09:20 Height 4 ft 11 in Weight 87 lb BMI 17.6 Intake Visit Reasons: FC-Compression vertebral fx Intake Note: Jamila is a 68 year old female who presents today for a fracture care visit as a new patient for her T7 compression fracture. Patient was referred by Alexi Givens. Patient is unsure of how she could have fractured her spine. She expresses she has not had a fall or recent injury. She reports sharp pain in her lower back and right hip. Patient reports her daughter helps her shower. She avoids heavy lifting and expresses difficulty with her everyday daily task due to her symptoms. She has tried physical therapy in the past she said 5 different times and this did not help her. She has a TENs machine at home that helps her temporarily. Denies numbness and tingling. Denies hx of back injections. She has tried Tylenol, ibuprofen, and heat however these do not offer her relief. Allergies No Known Allergies Allergy (Verified 11/17/23 09:20) Medication List - Last Reconciled 11/17/23 by Arlette Lindsey MD albuterol sulfate 90 mcg/actuation inhalation atorvastatin 10 mg PO DAILY cholecalciferol (vitamin D3) 25 mcg PO DAILY twpjsmcpgfr-fmceirppv-izusgjhv 100-62.5-25 mcg inhalation risvgizsnse-uyaaemocv-wtmeocgu 100-62.5-25 mcg (Trelegy Ellipta) 1 inh inhalation DAILY nabumetone 500 mg PO BID PRN paroxetine HCl 40 mg PO QAM pramipexole 0.25 mg PO BEDTIME HPI Comments Details: History of osteoporosis over 5 years, managed by Dr. Givens. History of scoliosis. History of cervical fusion, by Dr. Coe, years ago. Says doing well, no neck pain now. She complains of lower back, right pelvis/hip and also right shoulder. She's had shoulder injections back when Dr. Guerra was still here. Had PT for shoulders and back pain way back few years ago. Denies any falls. Independents, lives alone in own apartment, daughter lives upstairs. Drives if have to, usually daughter drives her when needed. Owns walker at home. Doesn't go out much. Back pain has not been evaluated for a few years. Mostly right sided. Goes to hip not to groin. No numbness. No bladder/bowel changes. [facility] Medical History Tubular adenoma Chronic right shoulder pain Hiatal hernia Colon cancer screening Generalized anxiety disorder Elbow pain, right Shoulder pain, right Polyarthralgia Leg cramps Vitamin D deficiency Squamous cell carcinoma Osteoporosis Menopause Osteopenia of multiple sites Cigarette smoker motivated to quit Restless leg syndrome COPD (chronic obstructive pulmonary disease) Impaired fasting glucose Fall Dyslipidemia Essential hypertension Surgical History Hx of colonoscopy S/P partial lobectomy of lung History of fusion of cervical spine History of hernia repair Family History Father Esophageal cancer Mother Cirrhosis HTN (hypertension) Diabetes mellitus Liver problem Brother Mental health disorder Daughter No problems noted. Social History Housing: House Alcohol intake: never Patient Tobacco Use Status: Current everyday Tobacco user Tobacco use type: Cigarette Cigarettes Per Day: 1 Years Smoked: 50 e-Cigarette/Vaping Use: Never Used service: No Current occupational status: disabled Current occupation: right hand dominant Cognitive needs: No Hearing needs: No Vision needs: No Review of Systems Const All systems reviewed & are unremarkable except as noted in HPI and below Physical Exam Vital Signs: BMI result Body Mass Index 17.6 Constitutional: Patient appears to be in no acute distress, well nourished and well developed. Patient was appropriately conversant and oriented. Good historian. MSK: No specific abnormalities found on inspection of the spine and all extremities. No specific focal tenderness spinous processes but she is diffusely tender on bilateral shoulders and lower back. Neurological: Neurologic examination of the upper and lower extremities was nonfocal with intact sensation, muscle stretch reflexes and without focal motor deficits . Gait is non-antalgic without loss of balance. Results Reviewed Results Reviewed: I independently reviewed the results of the following: Did not see any compression fracture on thoracic and lumbar x-rays done in the office today. Await official reading. There is curvature on lumbar with disc space narrowing. Patient has history of scoliosis. Ordering Physician: Alexi Givens MD Results: Date of Service: 08/25/23 Follow Up: Procedure(s): XR DEXA vertrebral fracture Accession Number(s): [id number] cc: Alexi Givens MD; Donna Romero MD~ EXAMINATION: DXA VERTEBRAL FRACTURE ASSESSMENT CLINICAL INFORMATION: Age-related osteoporosis COMPARISON: DEXA study of August 10, 2023. TECHNIQUE: Your patient completed a vertebral fracture assessment using the [employer] DXA system (software version: 14.10) manufactured by [employer]. The following summarizes the results of our evaluation. LVA MORPHOMETRY RESULTS: Evaluation of the thoracolumbar spine from T4 through L4 was performed. Image quality is good. There is an approximately 40% compression fracture of T7. There is a mild, less than 30% posterior T5 wedging. The lowest Z score is -4.0. The highest Z score is 2.8. MM/XR DEXA vertrebral fracture IMPRESSION: T7 compression fracture. This was not present on previous CT scan of the chest of May 14, 2015 RECOMMENDATIONS: All patients should ensure an adequate intake of dietary calcium (1200 mg/d) and vitamin D (400-800 IU/d). Effective therapies are now available in the form of bisphosphonates, (alendronate, ibandronate, risedronate, zoledronic acid), antiresorptive agents (calcitonin, estrogen + progesterone and raloxifene) and anabolic agent (teriparatide). These therapies may reduce vertebral, hip and other fractures by up to 50%. FOLLOW UP: People with diagnosed cases of osteoporosis, high risk for fracture, or current vertebral fractures should have regular bone mineral density tests. The frequency of followup vertebral fracture assessment tests should be determined based on clinical circumstances. Often times, testing frequency will be based on rapidly progressing disease, or the addition or elimination of therapy to treat the disease. I reviewed records from the following: Dr. Givens/Endocrinology Assessment & Plan Assessment & Plan (1) Thoracic compression fracture: Code(s): S22.000A - Wedge compression fracture of unspecified thoracic vertebra, initial encounter for closed fracture Category: Medical Qualifiers: Encounter type: initial encounter Thoracic vertebra fracture level: T7 Qualified Code(s): S22.060A - Wedge compression fracture of T7-T8 vertebra, initial encounter for closed fracture (2) Lumbar degenerative disc disease: Code(s): M51.369 - Other intervertebral disc degeneration, lumbar region without mention of lumbar back pain or lower extremity pain Category: Medical Qualifiers: Disc-related pain type: discogenic back pain only Qualified Code(s): M51.360 - Other intervertebral disc degeneration, lumbar region with discogenic back pain only (3) Scoliosis: Code(s): M41.9 - Scoliosis, unspecified Category: Medical Qualifiers: Idiopathic scoliosis type: other Scoliosis type: idiopathic Spinal region: lumbar Qualified Code(s): M41.26 - Other idiopathic scoliosis, lumbar region (4) Bilateral hip pain: Code(s): M25.551 - Pain in right hip; M25.552 - Pain in left hip Category: Medical (5) Bilateral shoulder pain: Code(s): M25.511 - Pain in right shoulder; M25.512 - Pain in left shoulder Category: Medical Qualifiers: Chronicity: chronic Qualified Code(s): M25.511 - Pain in right shoulder; M25.512 - Pain in left shoulder; G89.29 - Other chronic pain Plan Question of T7 compression fracture seen on DEXA scan. Plain x-rays done today does not seem to show any significant compression fracture? Await official reading. Lumbar x-rays did show possibility of degenerative disc disease and confirms her history of scoliosis. Discussed that if the x-rays are read as having fracture, we would proceed with getting MRI to evaluate acuity versus chronicity of such fracture. If it is acute/subacute, then there would be a role for vertebroplasty. She also complains of chronic hip pain but not groin pain. Given history of osteoporosis, we will also send for hip x-rays today. Chronic shoulder pain, previously seen by Orthopedics. We will send for shoulder x-rays today. Assessment and plan discussed with patient, and patient was agreeable. All questions were answered thoroughly. We will contact patient after x-rays been read. (At the time of writing this note, shoulder and hip x-ray images viewed, no overt fracture seen. Await official reading.) Arlette Lindsey MD, [place] Board Certified, [place] Board [employer] Physical Medicine and Rehabilitation (ABPMR) Board Certified, [place] Board of Electrodiagnostic Medicine (ABEM) Orders: Orders XR lumbar spine 2-3V Today M54.9 - Dorsalgia, unspecified XR thoracic spine 2V Today M54.9 - Dorsalgia, unspecified XR shoulder RT min 2V Today M25.511 - Pain in right shoulder, M25.512 - Pain in left shoulder XR shoulder LT min 2V Today M25.512 - Pain in left shoulder Coding Level of Care Code New Pt Level 4 (04298) Diagnoses Compression fracture of T7 vertebra, initial encounter S22.060A Encounter type: initial encounter Thoracic vertebra fracture level: T7 Degeneration of intervertebral disc of lumbar region with discogenic back pain M51.360 Disc-related pain type: discogenic back pain only Other idiopathic scoliosis, lumbar region M41.26 Idiopathic scoliosis type: other Scoliosis type: idiopathic Spinal region: lumbar Bilateral hip pain M25.551; M25.552 Chronic pain of both shoulders M25.511; M25.512; G89.29 Chronicity: chronic
[2023-11-17 09:20] VITALS: BMI 17.6
== END 2023-11-17 10:10 | disposition home or self-care (01) ==
PROVIDERS: PCP Internal Medicine; Visit Provider Physical Medicine & Rehabilitation
DX: S22.060A Wedge compression fracture of T7-T8 vertebra, initial encounter for closed fracture (principal); M51.360 Other intervertebral disc degeneration, lumbar region with discogenic back pain only; M41.26 Other idiopathic scoliosis, lumbar region; M25.551 Pain in right hip; M25.552 Pain in left hip; M25.511 Pain in right shoulder; M25.512 Pain in left shoulder; G89.29 Other chronic pain
CPT/HCPCS: 99204

== ENCOUNTER 2023-11-17 09:44 | Outpatient (REF) | payer MEDICAID, SELFPAY ==
--- NOTE | ~2023-11-17 | XR_ITS ---
EXAMINATION: X-RAY LUMBAR SPINE X-RAY BILATERAL HIPS X-RAY BILATERAL SHOULDERS X-RAY THORACIC SPINE CLINICAL INFORMATION: Pain in unspecified hip and shoulders back pain, evaluate for compression fracture. COMPARISON: None available. TECHNIQUE: 2 views thoracic spine, 2 views left hip, 2 views left shoulder, 2 views right shoulder, 2 views right hip, 3 views lumbar spine FINDINGS: Thoracic spine: Diffuse demineralization. Mild multilevel degenerative changes in the thoracic spine. Surgical fixation hardware partially imaged in the lower cervical spine. Postsurgical changes with chain sutures along the left mediastinum. Levoscoliosis of the lumbar spine. Lumbar spine: Diffuse demineralization. S-shaped thoracolumbar scoliosis with dextroscoliosis of upper lumbar spine. Facet arthritis in the [id number]-[id number] lumbar spine. There appears to be transitional anatomy present.For the purposes of this report, the most inferior well-formed vertebral body will be referred to as L5. Dedicated imaging of the entire spine with careful attention to enumeration should be obtained prior to any intervention/procedure to ensure correct numbering of vertebral body levels Multilevel lumbar spondylosis. Mild grade 1 retrolisthesis of L2 on L3 with advanced degenerative changes including loss of disc space height and subchondral sclerosis. Tnhmaoqk-yj-kvpsdl degenerative changes with loss of disc space height and hypertrophic change at L4-L5. Facet arthritis in the lower spine. Atherosclerotic aortic calcifications. Mild superior and inferior end plate compression deformities of indeterminate age and likely T12 and L1 levels. Right hip: Diffuse demineralization. Mild degenerative changes right hip. Alignment maintained. Large coarse calcification measuring 3.4 cm in the pelvis is characteristic of a fibroid and should be evaluated with dedicated pelvic ultrasound images. Additional smaller amorphous pelvic calcifications may also represent fibroid change. Left hip: Diffuse demineralization. Moderate degenerative changes. Alignment maintained. There is deformity along the incompletely imaged left pubic rami and pubic symphysis of indeterminate age and etiology. Correlation with clinical exam and dedicated imaging of the pelvis to include the pubic symphysis and pubic rami recommended. Right shoulder: Diffuse demineralization. Right shoulder: Advanced degenerative changes in the acromioclavicular joint with joint space narrowing and hypertrophic change. Diffuse demineralization. Moderate degenerative changes with hypertrophic change along the glenoid. Left shoulder: Advanced degenerative changes in the acromioclavicular joint with joint space narrowing and hypertrophic change. Diffuse demineralization. Moderate degenerative changes with hypertrophic change along the glenoid. XR/XR lumbar spine 2-3V IMPRESSION: 1. There appears to be transitional anatomy present. For the purposes of this report, the most inferior well-formed vertebral body will be referred to as L5. Dedicated imaging of the entire spine with careful attention to enumeration should be obtained prior to any intervention/procedure to ensure correct numbering of vertebral body levels. 2. Multilevel lumbar spondylosis. 3. Mild superior and inferior end plate compression deformities of indeterminate age and likely T12, L1 levels. 4. Mild degenerative changes in the right hip. 5. Moderate degenerative changes in the left hip. 6. Deformity along the incompletely imaged left pubic rami and pubic symphysis of indeterminate age and etiology. Correlation with clinical exam and dedicated imaging of the pelvis to include the pubic symphysis and pubic rami recommended. 7. Advanced degenerative changes in the bilateral acromioclavicular joints. 8. Moderate degenerative changes in the bilateral glenohumeral joints. 9. Large coarse calcification measuring 3.4 cm in the pelvis is characteristic of a fibroid and should be evaluated with dedicated pelvic ultrasound images. Additional smaller amorphous pelvic calcifications may also represent fibroid change. This study was presented today November 21, 2023 for interpretation. Stat results provided at this time as requested by referring provider. Electronically signed by: Leonor Reese MD 11/21/2023 12:07 PM EDT
--- NOTE | ~2023-11-17 | XR_ITS ---
EXAMINATION: X-RAY LUMBAR SPINE X-RAY BILATERAL HIPS X-RAY BILATERAL SHOULDERS X-RAY THORACIC SPINE CLINICAL INFORMATION: Pain in unspecified hip and shoulders back pain, evaluate for compression fracture. COMPARISON: None available. TECHNIQUE: 2 views thoracic spine, 2 views left hip, 2 views left shoulder, 2 views right shoulder, 2 views right hip, 3 views lumbar spine FINDINGS: Thoracic spine: Diffuse demineralization. Mild multilevel degenerative changes in the thoracic spine. Surgical fixation hardware partially imaged in the lower cervical spine. Postsurgical changes with chain sutures along the left mediastinum. Levoscoliosis of the lumbar spine. Lumbar spine: Diffuse demineralization. S-shaped thoracolumbar scoliosis with dextroscoliosis of upper lumbar spine. Facet arthritis in the pmi-de-xibem lumbar spine. There appears to be transitional anatomy present.For the purposes of this report, the most inferior well-formed vertebral body will be referred to as L5. Dedicated imaging of the entire spine with careful attention to enumeration should be obtained prior to any intervention/procedure to ensure correct numbering of vertebral body levels Multilevel lumbar spondylosis. Mild grade 1 retrolisthesis of L2 on L3 with advanced degenerative changes including loss of disc space height and subchondral sclerosis. Xqkgxfcp-do-fukvau degenerative changes with loss of disc space height and hypertrophic change at L4-L5. Facet arthritis in the lower spine. Atherosclerotic aortic calcifications. Mild superior and inferior end plate compression deformities of indeterminate age and likely T12 and L1 levels. Right hip: Diffuse demineralization. Mild degenerative changes right hip. Alignment maintained. Large coarse calcification measuring 3.4 cm in the pelvis is characteristic of a fibroid and should be evaluated with dedicated pelvic ultrasound images. Additional smaller amorphous pelvic calcifications may also represent fibroid change. Left hip: Diffuse demineralization. Moderate degenerative changes. Alignment maintained. There is deformity along the incompletely imaged left pubic rami and pubic symphysis of indeterminate age and etiology. Correlation with clinical exam and dedicated imaging of the pelvis to include the pubic symphysis and pubic rami recommended. Right shoulder: Diffuse demineralization. Right shoulder: Advanced degenerative changes in the acromioclavicular joint with joint space narrowing and hypertrophic change. Diffuse demineralization. Moderate degenerative changes with hypertrophic change along the glenoid. Left shoulder: Advanced degenerative changes in the acromioclavicular joint with joint space narrowing and hypertrophic change. Diffuse demineralization. Moderate degenerative changes with hypertrophic change along the glenoid. XR/XR thoracic spine 2V IMPRESSION: 1. There appears to be transitional anatomy present. For the purposes of this report, the most inferior well-formed vertebral body will be referred to as L5. Dedicated imaging of the entire spine with careful attention to enumeration should be obtained prior to any intervention/procedure to ensure correct numbering of vertebral body levels. 2. Multilevel lumbar spondylosis. 3. Mild superior and inferior end plate compression deformities of indeterminate age and likely T12, L1 levels. 4. Mild degenerative changes in the right hip. 5. Moderate degenerative changes in the left hip. 6. Deformity along the incompletely imaged left pubic rami and pubic symphysis of indeterminate age and etiology. Correlation with clinical exam and dedicated imaging of the pelvis to include the pubic symphysis and pubic rami recommended. 7. Advanced degenerative changes in the bilateral acromioclavicular joints. 8. Moderate degenerative changes in the bilateral glenohumeral joints. 9. Large coarse calcification measuring 3.4 cm in the pelvis is characteristic of a fibroid and should be evaluated with dedicated pelvic ultrasound images. Additional smaller amorphous pelvic calcifications may also represent fibroid change. This study was presented today November 21, 2023 for interpretation. Stat results provided at this time as requested by referring provider. Electronically signed by: Leonor Reese MD 11/21/2023 12:07 PM EDT
--- NOTE | ~2023-11-17 | XR_ITS ---
EXAMINATION: X-RAY LUMBAR SPINE X-RAY BILATERAL HIPS X-RAY BILATERAL SHOULDERS X-RAY THORACIC SPINE CLINICAL INFORMATION: Pain in unspecified hip and shoulders back pain, evaluate for compression fracture. COMPARISON: None available. TECHNIQUE: 2 views thoracic spine, 2 views left hip, 2 views left shoulder, 2 views right shoulder, 2 views right hip, 3 views lumbar spine FINDINGS: Thoracic spine: Diffuse demineralization. Mild multilevel degenerative changes in the thoracic spine. Surgical fixation hardware partially imaged in the lower cervical spine. Postsurgical changes with chain sutures along the left mediastinum. Levoscoliosis of the lumbar spine. Lumbar spine: Diffuse demineralization. S-shaped thoracolumbar scoliosis with dextroscoliosis of upper lumbar spine. Facet arthritis in the [id number] lumbar spine. There appears to be transitional anatomy present.For the purposes of this report, the most inferior well-formed vertebral body will be referred to as L5. Dedicated imaging of the entire spine with careful attention to enumeration should be obtained prior to any intervention/procedure to ensure correct numbering of vertebral body levels Multilevel lumbar spondylosis. Mild grade 1 retrolisthesis of L2 on L3 with advanced degenerative changes including loss of disc space height and subchondral sclerosis. Llyolkhh-mx-qfhpwa degenerative changes with loss of disc space height and hypertrophic change at L4-L5. Facet arthritis in the lower spine. Atherosclerotic aortic calcifications. Mild superior and inferior end plate compression deformities of indeterminate age and likely T12 and L1 levels. Right hip: Diffuse demineralization. Mild degenerative changes right hip. Alignment maintained. Large coarse calcification measuring 3.4 cm in the pelvis is characteristic of a fibroid and should be evaluated with dedicated pelvic ultrasound images. Additional smaller amorphous pelvic calcifications may also represent fibroid change. Left hip: Diffuse demineralization. Moderate degenerative changes. Alignment maintained. There is deformity along the incompletely imaged left pubic rami and pubic symphysis of indeterminate age and etiology. Correlation with clinical exam and dedicated imaging of the pelvis to include the pubic symphysis and pubic rami recommended. Right shoulder: Diffuse demineralization. Right shoulder: Advanced degenerative changes in the acromioclavicular joint with joint space narrowing and hypertrophic change. Diffuse demineralization. Moderate degenerative changes with hypertrophic change along the glenoid. Left shoulder: Advanced degenerative changes in the acromioclavicular joint with joint space narrowing and hypertrophic change. Diffuse demineralization. Moderate degenerative changes with hypertrophic change along the glenoid. XR/XR shoulder LT min 2V IMPRESSION: 1. There appears to be transitional anatomy present. For the purposes of this report, the most inferior well-formed vertebral body will be referred to as L5. Dedicated imaging of the entire spine with careful attention to enumeration should be obtained prior to any intervention/procedure to ensure correct numbering of vertebral body levels. 2. Multilevel lumbar spondylosis. 3. Mild superior and inferior end plate compression deformities of indeterminate age and likely T12, L1 levels. 4. Mild degenerative changes in the right hip. 5. Moderate degenerative changes in the left hip. 6. Deformity along the incompletely imaged left pubic rami and pubic symphysis of indeterminate age and etiology. Correlation with clinical exam and dedicated imaging of the pelvis to include the pubic symphysis and pubic rami recommended. 7. Advanced degenerative changes in the bilateral acromioclavicular joints. 8. Moderate degenerative changes in the bilateral glenohumeral joints. 9. Large coarse calcification measuring 3.4 cm in the pelvis is characteristic of a fibroid and should be evaluated with dedicated pelvic ultrasound images. Additional smaller amorphous pelvic calcifications may also represent fibroid change. This study was presented today November 21, 2023 for interpretation. Stat results provided at this time as requested by referring provider. Electronically signed by: Leonor Reese MD 11/21/2023 12:07 PM EDT
--- NOTE | ~2023-11-17 | XR_ITS ---
EXAMINATION: X-RAY LUMBAR SPINE X-RAY BILATERAL HIPS X-RAY BILATERAL SHOULDERS X-RAY THORACIC SPINE CLINICAL INFORMATION: Pain in unspecified hip and shoulders back pain, evaluate for compression fracture. COMPARISON: None available. TECHNIQUE: 2 views thoracic spine, 2 views left hip, 2 views left shoulder, 2 views right shoulder, 2 views right hip, 3 views lumbar spine FINDINGS: Thoracic spine: Diffuse demineralization. Mild multilevel degenerative changes in the thoracic spine. Surgical fixation hardware partially imaged in the lower cervical spine. Postsurgical changes with chain sutures along the left mediastinum. Levoscoliosis of the lumbar spine. Lumbar spine: Diffuse demineralization. S-shaped thoracolumbar scoliosis with dextroscoliosis of upper lumbar spine. Facet arthritis in the lik-wp-udedi lumbar spine. There appears to be transitional anatomy present.For the purposes of this report, the most inferior well-formed vertebral body will be referred to as L5. Dedicated imaging of the entire spine with careful attention to enumeration should be obtained prior to any intervention/procedure to ensure correct numbering of vertebral body levels Multilevel lumbar spondylosis. Mild grade 1 retrolisthesis of L2 on L3 with advanced degenerative changes including loss of disc space height and subchondral sclerosis. Keybwoqj-re-jbeuss degenerative changes with loss of disc space height and hypertrophic change at L4-L5. Facet arthritis in the lower spine. Atherosclerotic aortic calcifications. Mild superior and inferior end plate compression deformities of indeterminate age and likely T12 and L1 levels. Right hip: Diffuse demineralization. Mild degenerative changes right hip. Alignment maintained. Large coarse calcification measuring 3.4 cm in the pelvis is characteristic of a fibroid and should be evaluated with dedicated pelvic ultrasound images. Additional smaller amorphous pelvic calcifications may also represent fibroid change. Left hip: Diffuse demineralization. Moderate degenerative changes. Alignment maintained. There is deformity along the incompletely imaged left pubic rami and pubic symphysis of indeterminate age and etiology. Correlation with clinical exam and dedicated imaging of the pelvis to include the pubic symphysis and pubic rami recommended. Right shoulder: Diffuse demineralization. Right shoulder: Advanced degenerative changes in the acromioclavicular joint with joint space narrowing and hypertrophic change. Diffuse demineralization. Moderate degenerative changes with hypertrophic change along the glenoid. Left shoulder: Advanced degenerative changes in the acromioclavicular joint with joint space narrowing and hypertrophic change. Diffuse demineralization. Moderate degenerative changes with hypertrophic change along the glenoid. XR/XR shoulder RT min 2V IMPRESSION: 1. There appears to be transitional anatomy present. For the purposes of this report, the most inferior well-formed vertebral body will be referred to as L5. Dedicated imaging of the entire spine with careful attention to enumeration should be obtained prior to any intervention/procedure to ensure correct numbering of vertebral body levels. 2. Multilevel lumbar spondylosis. 3. Mild superior and inferior end plate compression deformities of indeterminate age and likely T12, L1 levels. 4. Mild degenerative changes in the right hip. 5. Moderate degenerative changes in the left hip. 6. Deformity along the incompletely imaged left pubic rami and pubic symphysis of indeterminate age and etiology. Correlation with clinical exam and dedicated imaging of the pelvis to include the pubic symphysis and pubic rami recommended. 7. Advanced degenerative changes in the bilateral acromioclavicular joints. 8. Moderate degenerative changes in the bilateral glenohumeral joints. 9. Large coarse calcification measuring 3.4 cm in the pelvis is characteristic of a fibroid and should be evaluated with dedicated pelvic ultrasound images. Additional smaller amorphous pelvic calcifications may also represent fibroid change. This study was presented today November 21, 2023 for interpretation. Stat results provided at this time as requested by referring provider. Electronically signed by: Leonor Reese MD 11/21/2023 12:07 PM EDT
== END 2023-11-17 09:45 | disposition home or self-care (01) ==
LOC: HO.HOSX 09:44
PROVIDERS: Visit Provider Physical Medicine & Rehabilitation
DX: M54.9 Dorsalgia, unspecified (principal); M25.512 Pain in left shoulder; M25.511 Pain in right shoulder; S22.060A Wedge compression fracture of T7-T8 vertebra, initial encounter for closed fracture; M51.360 Other intervertebral disc degeneration, lumbar region with discogenic back pain only; M41.26 Other idiopathic scoliosis, lumbar region; M25.551 Pain in right hip; M25.552 Pain in left hip; G89.29 Other chronic pain
CPT/HCPCS: 72070; 72100; 73030; 73502; 99202

== ENCOUNTER 2023-11-23 08:39 | Outpatient (REF) | payer MEDICAID, SELFPAY | END 2023-11-23 08:40 | disposition home or self-care (01) | LOC: HO.HOSX 08:39 | PROVIDERS: Visit Provider Physical Medicine & Rehabilitation | DX: Z13.89 Encounter for screening for other disorder (principal) ==

== ENCOUNTER 2023-12-04 08:58 | Outpatient (REF) | payer MEDICAID, SELFPAY ==
--- NOTE | ~2023-12-04 | MR_ITS ---
EXAMINATION: MR THORACIC SPINE WITHOUT CONTRAST CLINICAL INFORMATION: Spondylosis without myelopathy or radiculopathy, thoracic region COMPARISON: None available. TECHNIQUE: MRI of the thoracic spine was obtained using routine sequences without contrast. FINDINGS: Mild dextrocurvature at the thoracolumbar junction and moderate levocurvature of the lumbar spine. Straightening of the normal thoracic kyphosis. No listhesis. Diffusely heterogeneous bone marrow signal, likely degenerative. Acute reactive endplate changes at T1-2. The vertebral body heights are preserved. Multilevel disc desiccation with severe disc height loss at T7-T8. Multilevel endplate osteophytosis. The visualized spinal cord is normal in caliber. No abnormal cord signal. There is a right paracentral disc protrusion at T7-8 near completely effacing the ventral thecal sac and slightly indenting the cord. No significant spinal canal stenosis or neural foraminal narrowing at this level. No significant spinal canal stenosis or neural foraminal narrowing throughout the thoracic spine. The paravertebral soft tissues are unremarkable. The imaged intrathoracic and intra-abdominal structures are grossly within normal limits. MR/MR thoracic spine wo con IMPRESSION: -Acute reactive endplate changes at T1-2. -Right paracentral disc protrusion at T7-8 slightly indenting the cord without significant spinal canal or neural foraminal narrowing at this level. Electronically signed by: Esme Lucas MD 12/04/2023 04:09 PM EDT
== END 2023-12-04 08:59 | disposition home or self-care (01) ==
LOC: HO.MRI 08:58
PROVIDERS: PCP Internal Medicine; Visit Provider Physical Medicine & Rehabilitation
DX: M47.814 Spondylosis without myelopathy or radiculopathy, thoracic region (principal); S22.060A Wedge compression fracture of T7-T8 vertebra, initial encounter for closed fracture; M25.551 Pain in right hip; M25.552 Pain in left hip
CPT/HCPCS: 72146

== ENCOUNTER 2023-12-08 09:03 | Outpatient (AMB) | payer MEDICAID, SELFPAY ==
[2023-12-08 09:07] VITALS: BP 128/80; PULSE 62; O2SAT 97; BMI 19.2
--- NOTE | 2023-12-08 09:07 | A.OFFPC_ITS ---
Vital Signs 12/08/23 09:07 Height 4 ft 11 in Weight 95 lb BMI 19.2 BP 128/80 Blood Pressure Location Rt brachial Position Sitting Pulse 62 Pulse Source Pulse Oximeter Pulse Oximetry (%) 97 Oxygen Delivery Method Room Air Intake Visit Reasons: Regular check up Allergies No Known Allergies Allergy (Verified 12/08/23 09:18) Medication List - Last Reconciled 12/08/23 by Donna Romero MD albuterol sulfate 90 mcg/actuation inhalation atorvastatin 10 mg PO DAILY cholecalciferol (vitamin D3) 25 mcg PO DAILY uxoyaoqgpre-bwcfsfqsa-todrgrig 100-62.5-25 mcg (Trelegy Ellipta) 1 inh inhalation DAILY nabumetone 500 mg PO BID PRN paroxetine HCl 40 mg PO QAM pramipexole 0.25 mg PO BEDTIME romosozumab-aqqg (Evenity) 210 mg (2.34 mL) subcut .monthly Tobacco use date assessed: 12/08/23 Fall risk assessment: No Falls in past year Last assessed Fall Risk: 12/08/23 Dental Screening Dental Screen Date: 12/08/23 Did you have a dental visit in the last 12 months?: No Did you have a dental problem in the last 6 months where you did not have access to dental care?: No Was dental information given to patient?: Patient declined HPI Regular check up HPI Details 68-year-old lady with history of moderat e COPD and on nocturnal oxygen, currently on Trelegy and albuterol, followed by Dr. Flaherty, has osteoporosis currently followed by Dr. Givens failed Fosamax therapy in the past, here today for follow-up on her cholesterol and anxiety disorder. She is currently taking atorvastatin 10 mg once a day, and has been trying to follow recommended diet. Takes paroxetine which has been helping control her anxiety attacks. She was placed on Chantix by Dr. Flaherty on her last visit with him proximally 2 months ago, patient states however that she developed severe nightmares and vivid dreams after taking it for 1 week. [facility] Medical History (Updated 12/08/23 @ 09:45 by Donna Romero MD) History of adenomatous polyp of colon Chronic right shoulder pain Hiatal hernia Colon cancer screening Generalized anxiety disorder Polyarthralgia Leg cramps Vitamin D deficiency Squamous cell carcinoma Osteoporosis Restless leg syndrome COPD (chronic obstructive pulmonary disease) Impaired fasting glucose Fall Dyslipidemia Essential hypertension Surgical History Hx of colonoscopy S/P partial lobectomy of lung History of fusion of cervical spine History of hernia repair Family History Father Esophageal cancer Mother Cirrhosis HTN (hypertension) Diabetes mellitus Liver problem Brother Mental health disorder Daughter No problems noted. Social History Housing: House Alcohol intake: never Patient Tobacco Use Status: Current everyday Tobacco user Tobacco use type: Cigarette Cigarettes Per Day: 1 Years Smoked: 50 e-Cigarette/Vaping Use: Never Used service: No Current occupational status: disabled Current occupation: right hand dominant Cognitive needs: No Hearing needs: No Vision needs: No Questionnaire PHQ-9 Over the last 2 weeks, how often have you been bothered by any of the following problems? 1. Little interest or pleasure in doing things: not at all 2. Feeling down, depressed, or hopeless: not at all 3. Trouble falling or staying asleep, or sleeping too much: several days 4. Feeling tired or having little energy: several days 5. Poor appetite or overeating: several days 6. Feeling bad about yourself - or that you are a failure or have let yourself or your family down: not at all 7. Trouble concentrating on things, such as reading the newspaper or watching television: not at all 8. Moving or speaking so slowly that other people could have noticed. Or the opposite - being so fidgety or restless that you have been moving around a lot more than usual: not at all 9. Thoughts that you would be better off or of hurting yourself in some way: not at all Total score: 3 Depression Screening Interpretation: Negative Depression Screening Done: Yes 51234 - PHQ-9 Billing: Yes Source: Developed by Drs. Alexi Yadav, Brenda Barahona, Alonzo Smiley and colleagues, with an educational livia from [employer]. Thrive Questionnaire Date Thrive assessed: 03/21/23 I am a: Patient What is your living situation today?: I have a steady place to live Within the past 12 months, did the food you bought not last and you didn't have the money to get more?: Never true Within the past 12 months, did you worry whether your food would run out before you got money to buy more?: Never true Do you have trouble paying for medicines?: No Do you have trouble getting transportation to medical appointments?: No Do you have trouble paying your heating and electricity bill?: No Do you have trouble taking care of your child, family member or friend?: No Do you have trouble with day-to-day activities such as bathing, preparing meals, shopping, managing finances, etc.?: Yes Are you currently unemployed and looking for a job?: No Are you interested in more education?: No Please select the resources that you would like help with: None Currently or been in a relationship where the following occur: I choose not to answer THRIVE Score: 0 AUDIT C Alcohol Use Questionnaire (AUDIT-C) 1. How often do you have a drink containing alcohol?: Monthly or less 2. How many drinks containing alcohol do you have on a typical day when you are drinking?: 1 or 2 3. How often do you have six or more drinks on one occasion?: Never Total Score: 1 JENAE-7 AMB Questionnaire JENAE-7 Date JENAE - 7 assessed: 03/21/23 Feeling nervous, anxious, or on edge: 1 = Several days Not being able to stop or control worryin = Not at all Worrying too much about different things: 0 = Not at all Trouble relaxin = Not at all Being so restless that it is hard to sit still: 0 = Not at all Becoming easily annoyed or irritable: 1 = Several days Feeling afraid as if something awful might happen: 0 = Not at all Total JENAE-7 score (0-4 normal; 5-9 mild; 10-14 moderate; 15-21 severe): 2 Source: Developed by Drs. Alexi Yadav, Brenda Barahona, Alonzo Smiley and colleagues, with an educational livia from [employer] JENAE-7 Assessment Billing JENAE-7 Assessment Tool: JENAE-7 Assessment 14658 Review of Systems Const Denies headache(s) and Denies malaise ENT Denies change in voice, Denies dysphagia, Denies headache(s) and Denies hoarseness Card Denies chest pain, Denies irregular heart rhythm and Denies dyspnea Resp Denies cough and Denies dyspnea GI Denies abdominal pain, Denies change in bowel habits, Denies dysphagia, Denies diarrhea and Denies nausea Musc Denies myalgias, Denies muscle cramps, Denies numbness, Reports stiffness and Denies tingling Neuro Denies headache(s), Denies numbness and Denies tingling Psych Reports no additional complaints Physical exam (Primary Care) Vital Signs: Last Vital Signs Pulse 62 12/08/23 09:07 BP 128/80 12/08/23 09:07 Pulse Ox 97 12/08/23 09:07 Oxygen Delivery Method Room Air 12/08/23 09:07 BMI result Body Mass Index 19.2 Tobacco/Smoking Status: Tobacco use Status Tobacco use date assessed 12/08/23 12/08/23 09:14 Patient Tobacco Use Status Current everyday Tobacco 12/08/23 09:14 Tobacco use type Cigarette 12/08/23 09:14 e-Cigarette/Vaping Use Never Used 12/08/23 09:14 PHQ-9: PHQ-9 Score PHQ-9: Total score 5 12/08/23 09:14 Depression Screening Interpretation: Negative Thrive Assessment: Date of Thrive Assessment Date Thrive assessed 03/21/23 12/08/23 09:14 Currently or been in a relationship where the following occur: I choose not to answer Const Other: Alert oriented x3, no acute cardiorespiratory distress noted ambulatory normal gait Orientation/consciousness: patient oriented x3 HENMT Face and sinus: Yes face symmetric Mouth: Normal oral and palatal mucosa present, tongue normal and moist mucous membranes Eyes General: appearance normal, both eyes and all related structures Neck Other: Supple with no lymphadenopathy, thyroid gland nonpalpable Resp Auscultation: clear to auscultation bilaterally Cardio Other: S1-S2 present regular rate and rhythm 1+ dorsalis pedis pulse and popliteal tibial pulse bilaterally GI Inspection: Yes normal to inspection Palpation (GI): Soft to palpation, nontender, no guarding and no masses Skin General skin exam: no rashes or lesions noted Neuro General: patient oriented x3, gait normal, tone normal, moves all extremities, Normal light touch and pain sensation, no focal motor deficits and CN's II-XI in tact bilaterally Extrem General: Yes no pedal edema and Yes normal gait Psych Appearance: grossly normal Mental Status: mental status grossly normal Speech and movement: Normal speech and movement present Affect: normal affect Attitude: cooperative Thought process: Normal thought process present Thought content: Normal thought content present Coding Level of Care Code Est Pt Level 4 (59055) Complex EM visit Add On G2211 Diagnoses Dyslipidemia E78.5 Generalized anxiety disorder F41.1 Cigarette smoker motivated to quit F17.210 Additional Codes JENAE-7 Assessment Billing - JENAE-7 Assessment Tool: JENAE-7 Assessment 65825 ([id number]) Assessment & Plan Assessment & Plan (1) Dyslipidemia: Code(s): E78.5 - Hyperlipidemia, unspecified Category: Medical Plan: Fasting lipid panel ordered, currently on atorvastatin 10 mg daily (2) Generalized anxiety disorder: Code(s): F41.1 - Generalized anxiety disorder Category: Medical Plan: Continue with paroxetine 40 mg daily in am (3) Cigarette smoker motivated to quit: Code(s): F17.210 - Nicotine dependence, cigarettes, uncomplicated Category: Social Hx Plan: Advised to try taking varenicline again, but at a lower dose of 0.5 mg once a day in a.m. with breakfast and a glass of water. Patient advised to let me know if this does not help Orders: Orders Lipid Panel Today E78.5 - Hyperlipidemia, unspecified, I10 - Essential (primary) hypertension Hemoglobin A1c Today E78.5 - Hyperlipidemia, unspecified, I10 - Essential (primary) hypertension Alanine Aminotransferase Today E78.5 - Hyperlipidemia, unspecified, I10 - Essential (primary) hypertension Aspartate Amino Transferase Today E78.5 - Hyperlipidemia, unspecified, I10 - Essential (primary) hypertension Basic Metabolic Panel Fasting Today E78.5 - Hyperlipidemia, unspecified, I10 - Essential (primary) hypertension
== END 2023-12-08 09:56 | disposition home or self-care (01) ==
LOC: HO.HMCC 09:03
PROVIDERS: PCP Internal Medicine; Visit Provider Internal Medicine
DX: E78.5 Hyperlipidemia, unspecified (principal); F41.1 Generalized anxiety disorder; F17.210 Nicotine dependence, cigarettes, uncomplicated

== ENCOUNTER → 2023-12-08 09:03 | Outpatient (BNVA) | payer MEDICAID, SELFPAY | PROVIDERS: PCP Internal Medicine; Visit Provider Internal Medicine | DX: E78.5 Hyperlipidemia, unspecified (principal); F41.1 Generalized anxiety disorder; F17.210 Nicotine dependence, cigarettes, uncomplicated; Z71.6 Tobacco abuse counseling | CPT/HCPCS: 96127; 99212 ==

== ENCOUNTER 2023-12-16 09:33 | Outpatient (AMB) | payer MEDICAID, SELFPAY ==
--- NOTE | 2023-12-16 10:02 | A.OFFVIS_ITS ---
Intake Visit Reasons: OV- Compression vertebral fx, review results Intake Note: Jamila is a 68 year old female who presents today for a follow up visit. Patient is here today to discuss her x-ray and MRI reports. Patient reports her right side lower back pain has not resolved, her pain is constant throughout the day and does not go away. She also expresses her right arm has ongoing constant pain throughout the day that goes from the shoulder down to her hand. She expresses tingling in her fingers and then her hand cramps up. She takes nabumetone 500 mg for her pain however she says this gives her minimal relief. She has tried PT for her shoulder and expresses no help. Cortisone injection w/ NE in her right shoulder but these did not relieve her. Allergies No Known Allergies Allergy (Verified 12/16/23 10:07) Medication List - Last Reconciled 12/16/23 by Arlette Lindsey MD albuterol sulfate 90 mcg/actuation inhalation albuterol sulfate 90 mcg/actuation (Ventolin HFA) 2 puffs inhalation Q6H PRN atorvastatin 10 mg PO DAILY cholecalciferol (vitamin D3) 25 mcg PO DAILY tvbzhzkwkvd-xgjuuwzec-inyakmaz 100-62.5-25 mcg (Trelegy Ellipta) 1 inh inhalation DAILY nabumetone 500 mg PO BID PRN omeprazole 20 mg PO DAILY Oxygen Home Use As directed HPI Comments Details: History of osteoporosis over 5 years, managed by Dr. Givens. History of scoliosis. History of cervical fusion, by Dr. Coe, years ago. Says doing well, no neck pain now. She complains of lower back, right pelvis/hip and also right shoulder. She's had shoulder injections back when Dr. Guerra was still here. Had PT for shoulders and back pain way back few years ago. Denies any falls. Independents, lives alone in own apartment, daughter lives upstairs. Drives if have to, usually daughter drives her when needed. Owns walker at home. Doesn't go out much. Back pain has not been evaluated for a few years. Mostly right sided. Goes to hip not to groin. No numbness. No bladder/bowel changes. Today complaining of right buttocks pain and right shoulder pain. This is chronic, but maybe the weather is triggering it. [facility] Medical History (Updated 12/16/23 @ 10:48 by Arlette Lindsey MD) History of adenomatous polyp of colon Chronic right shoulder pain Hiatal hernia Colon cancer screening Generalized anxiety disorder Polyarthralgia Leg cramps Vitamin D deficiency Squamous cell carcinoma Osteoporosis Restless leg syndrome COPD (chronic obstructive pulmonary disease) Impaired fasting glucose Fall Dyslipidemia Essential hypertension Surgical History Hx of colonoscopy S/P partial lobectomy of lung History of fusion of cervical spine History of hernia repair Family History Father Esophageal cancer Mother Cirrhosis HTN (hypertension) Diabetes mellitus Liver problem Brother Mental health disorder Daughter No problems noted. Social History Housing: House Alcohol intake: never Patient Tobacco Use Status: Current everyday Tobacco user Tobacco use type: Cigarette Cigarettes Per Day: 1 Years Smoked: 50 e-Cigarette/Vaping Use: Never Used service: No Current occupational status: disabled Current occupation: right hand dominant Cognitive needs: No Hearing needs: No Vision needs: No Physical Exam Constitutional: Patient appears to be in no acute distress, well nourished and well developed. Patient was appropriately conversant and oriented. MSK: No tenderness over spinous processes. No tenderness on thoracic area. No tenderness on left pelvis/hip area. She had very sharp pain today over right SI joint and piriformis area. Limited right shoulder range of motion due to pain. Neurological: Neurologic examination of the upper and lower extremities was nonfocal with intact sensation, muscle stretch reflexes and without focal motor deficits . Gait is non-antalgic without loss of balance. Results Reviewed Results Reviewed: Reviewed thoracic MRI images. No evidence of compression fracture. No report of acute thoracic vertebral fracture. Ordering Physician: Arlette Giron Date of Service: 12/04/23 Procedure(s): MR thoracic spine wo [facility] Accession Number(s): [id number] cc: Donna Romero MD; Arlette Giron~ EXAMINATION: MR THORACIC SPINE WITHOUT CONTRAST CLINICAL INFORMATION: Spondylosis without myelopathy or radiculopathy, thoracic region COMPARISON: None available. TECHNIQUE: MRI of the thoracic spine was obtained using routine sequences without contrast. FINDINGS: Mild dextrocurvature at the thoracolumbar junction and moderate levocurvature of the lumbar spine. Straightening of the normal thoracic kyphosis. No listhesis. Diffusely heterogeneous bone marrow signal, likely degenerative. Acute reactive endplate changes at T1-2. The vertebral body heights are preserved. Multilevel disc desiccation with severe disc height loss at T7-T8. Multilevel endplate osteophytosis. The visualized spinal cord is normal in caliber. No abnormal cord signal. There is a right paracentral disc protrusion at T7-8 near completely effacing the ventral thecal sac and slightly indenting the cord. No significant spinal canal stenosis or neural foraminal narrowing at this level. No significant spinal canal stenosis or neural foraminal narrowing throughout the thoracic spine. The paravertebral soft tissues are unremarkable. The imaged intrathoracic and intra-abdominal structures are grossly within normal limits. MR/MR thoracic spine wo con IMPRESSION: -Acute reactive endplate changes at T1-2. -Right paracentral disc protrusion at T7-8 slightly indenting the cord without significant spinal canal or neural foraminal narrowing at this level. Electronically signed by: Esme Lucas MD 12/04/2023 04:09 PM EDT RP Ordering Physician: Arlette Giron Date of Service: 11/17/23 Procedure(s): XR hip LT min 2V Accession Number(s): [id number] cc: Arlette Giron~ EXAMINATION: X-RAY LUMBAR SPINE X-RAY BILATERAL HIPS X-RAY BILATERAL SHOULDERS X-RAY THORACIC SPINE CLINICAL INFORMATION: Pain in unspecified hip and shoulders back pain, evaluate for compression fracture. COMPARISON: None available. TECHNIQUE: 2 views thoracic spine, 2 views left hip, 2 views left shoulder, 2 views right shoulder, 2 views right hip, 3 views lumbar spine FINDINGS: Thoracic spine: Diffuse demineralization. Mild multilevel degenerative changes in the thoracic spine. Surgical fixation hardware partially imaged in the lower cervical spine. Postsurgical changes with chain sutures along the left mediastinum. Levoscoliosis of the lumbar spine. Lumbar spine: Diffuse demineralization. S-shaped thoracolumbar scoliosis with dextroscoliosis of upper lumbar spine. Facet arthritis in the tua-zx-gtcbr lumbar spine. There appears to be transitional anatomy present.For the purposes of this report, the most inferior well-formed vertebral body will be referred to as L5. Dedicated imaging of the entire spine with careful attention to enumeration should be obtained prior to any intervention/procedure to ensure correct numbering of vertebral body levels Multilevel lumbar spondylosis. Mild grade 1 retrolisthesis of L2 on L3 with advanced degenerative changes including loss of disc space height and subchondral sclerosis. Ggxluafq-bv-ijbrks degenerative changes with loss of disc space height and hypertrophic change at L4-L5. Facet arthritis in the lower spine. Atherosclerotic aortic calcifications. Mild superior and inferior end plate compression deformities of indeterminate age and likely T12 and L1 levels. Right hip: Diffuse demineralization. Mild degenerative changes right hip. Alignment maintained. Large coarse calcification measuring 3.4 cm in the pelvis is characteristic of a fibroid and should be evaluated with dedicated pelvic ultrasound images. Additional smaller amorphous pelvic calcifications may also represent fibroid change. Left hip: Diffuse demineralization. Moderate degenerative changes. Alignment maintained. There is deformity along the incompletely imaged left pubic rami and pubic symphysis of indeterminate age and etiology. Correlation with clinical exam and dedicated imaging of the pelvis to include the pubic symphysis and pubic rami recommended. Right shoulder: Diffuse demineralization. Right shoulder: Advanced degenerative changes in the acromioclavicular joint with joint space narrowing and hypertrophic change. Diffuse demineralization. Moderate degenerative changes with hypertrophic change along the glenoid. Left shoulder: Advanced degenerative changes in the acromioclavicular joint with joint space narrowing and hypertrophic change. Diffuse demineralization. Moderate degenerative changes with hypertrophic change along the glenoid. XR/XR hip LT min 2V IMPRESSION: 1. There appears to be transitional anatomy present. For the purposes of this report, the most inferior well-formed vertebral body will be referred to as L5. Dedicated imaging of the entire spine with careful attention to enumeration should be obtained prior to any intervention/procedure to ensure correct numbering of vertebral body levels. 2. Multilevel lumbar spondylosis. 3. Mild superior and inferior end plate compression deformities of indeterminate age and likely T12, L1 levels. 4. Mild degenerative changes in the right hip. 5. Moderate degenerative changes in the left hip. 6. Deformity along the incompletely imaged left pubic rami and pubic symphysis of indeterminate age and etiology. Correlation with clinical exam and dedicated imaging of the pelvis to include the pubic symphysis and pubic rami recommended. 7. Advanced degenerative changes in the bilateral acromioclavicular joints. 8. Moderate degenerative changes in the bilateral glenohumeral joints. 9. Large coarse calcification measuring 3.4 cm in the pelvis is characteristic of a fibroid and should be evaluated with dedicated pelvic ultrasound images. Additional smaller amorphous pelvic calcifications may also represent fibroid change. This study was presented today November 21, 2023 for interpretation. Stat results provided at this time as requested by referring provider. Electronically signed by: Leonor Reese MD 11/21/2023 12:07 PM EDT RP Assessment & Plan Assessment & Plan (1) Lumbar degenerative disc disease: Code(s): M51.369 - Other intervertebral disc degeneration, lumbar region without mention of lumbar back pain or lower extremity pain Category: Medical Qualifiers: Disc-related pain type: discogenic back pain only Qualified Code(s): M51.360 - Other intervertebral disc degeneration, lumbar region with discogenic back pain only (2) Low back pain radiating to right leg: Code(s): M54.50 - Low back pain, unspecified; M79.604 - Pain in right leg Category: Medical (3) DJD of right shoulder: Code(s): M19.011 - Primary osteoarthritis, right shoulder Category: Medical Qualifiers: Osteoarthritis type: primary Qualified Code(s): M19.011 - Primary osteoarthritis, right shoulder (4) Osteoporosis: Code(s): M81.0 - Age-related osteoporosis without current pathological fracture Category: Medical Qualifiers: Osteoporosis type: age-related Presence of current pathological fracture: without current pathological fracture Qualified Code(s): M81.0 - Age- related osteoporosis without current pathological fracture (5) Fibroid: Code(s): D21.9 - Benign neoplasm of connective and other soft tissue, unspecified Category: Medical Plan 1. Main concern of patient today is right lower back pain, with tenderness over SI and piriformis. Wonder if this is actually L5-S1 radiculitis. Lumbar x-rays showed decreased disc space at L4-5 and L5-S1. Patient had undergone adequate conservative management without improvement of condition. It would be reasonable to obtain further imaging such as MRI. An MRI would help rule out any serious condition, guide treatment and assess prognosis for recovery. Specifically ruling out right L4-5 or L5-S1 disc herniation. 2. Chronic right shoulder pain. X-ray showed advanced arthritic changes AC joint and glenohumeral. She used to follow Orthopedics and has had injections without relief. Would avoid further steroid injection given osteoporosis. We agreed on referring her back to Orthopedics Dr. Duggan to see if she has any surgical options. 3. Thoracic MRI did not show any acute thoracic fracture. There was a mention of T7-8 disc protrusion but patient does not have any pain in that level, does not show signs of thoracic radiculitis. 4. Osteoporosis, follows with Dr. Givens. X-ray shows possible old fracture left pubic/pelvis. Patient denies any left-sided pain. 5. Incidental finding of fibroid. Patient denies knowing any history of fibroid. She has not seen [employer] [facility] recently. Her primary care physician is Dr. Romero. Message sent to Dr. Romero and patient to follow up with her. Assessment and plan discussed with patient, and patient was agreeable. All questions were answered thoroughly. Follow up after lumbar MRI. Arlette Lindsey MD, [place] Board Certified, [place] [employer] and [employer] (ABPMR) Board Certified, [place] [employer] Electro[employer] (ABEM) Orders: Orders MR lumbar spine wo con Today M51.360 - Other intervertebral disc degeneration, lumbar region with discogenic back pain only Coding Level of Care Code Est Pt Level 4 (71933) Complex EM visit Add On G2211 Diagnoses Degeneration of intervertebral disc of lumbar region with discogenic back pain M51.360 Disc-related pain type: discogenic back pain only Low back pain radiating to right leg M54.50; M79.604 Primary osteoarthritis of right shoulder M19.011 Osteoarthritis type: primary Age-related osteoporosis without current pathological fracture M81.0 Osteoporosis type: age-related Presence of current pathological fracture: without current pathological fracture Fibroid D21.9
== END 2023-12-16 11:36 | disposition home or self-care (01) ==
PROVIDERS: PCP Internal Medicine; Visit Provider Physical Medicine & Rehabilitation
DX: M51.360 Other intervertebral disc degeneration, lumbar region with discogenic back pain only (principal); M81.0 Age-related osteoporosis without current pathological fracture; M79.604 Pain in right leg; M19.011 Primary osteoarthritis, right shoulder; D21.9 Benign neoplasm of connective and other soft tissue, unspecified
CPT/HCPCS: 99214

== ENCOUNTER → 2023-12-16 09:33 | Outpatient (BNVA) | payer MEDICAID, SELFPAY | PROVIDERS: PCP Internal Medicine; Visit Provider Physical Medicine & Rehabilitation | DX: M51.360 Other intervertebral disc degeneration, lumbar region with discogenic back pain only (principal); M54.50 Low back pain, unspecified; M79.604 Pain in right leg; M19.011 Primary osteoarthritis, right shoulder; M81.0 Age-related osteoporosis without current pathological fracture; D21.9 Benign neoplasm of connective and other soft tissue, unspecified | CPT/HCPCS: 99212 ==

== ENCOUNTER 2024-01-09 08:14 | Outpatient (REF) | payer MEDICAID, SELFPAY ==
[2024-01-09 10:55] LABS: Alanine Aminotransferase 21 U/L (0-31); Anion Gap 13 (12-20); Aspartate Amino Transferase 27 U/L (5-31); Blood Urea Nitrogen 22 mg/dL (9-16); Calcium 9.5 mg/dL (8.4-10.2); Carbon Dioxide 28 mmol/L (22-29); Chloride 105 mmol/L (96-108); Cholesterol 235 mg/dL (<200); Estimated Glomerular Filt Rate > 60; Glucose Fasting 116 mg/dL (60-99); HDL Cholesterol 96 mg/dL (>40); LDL Cholesterol Calculated 123 mg/dL (<100); Potassium 3.7 mmol/L (3.3-5.1); Sodium 142 mmol/L (135-145); Triglycerides 84 mg/dL (<150)
[2024-01-09 10:56] LABS: Estimated Average Glucose 120 mg/dL; Hemoglobin A1C 142.8185 umol/L; Hemoglobin A1c % 5.8 % (<6.0); Total Hemoglobin (HGBA1C) 3604.8317 umol/L
== END 2024-01-09 08:15 | disposition home or self-care (01) ==
LOC: HO.HMGCLDS 08:14
PROVIDERS: PCP Internal Medicine; Visit Provider Internal Medicine
DX: I10 Essential (primary) hypertension (principal); E78.5 Hyperlipidemia, unspecified
CPT/HCPCS: 36415; 80048; 80061; 83036; 84450; 84460

== ENCOUNTER 2024-01-17 10:14 | Outpatient (REF) | payer MEDICAID, SELFPAY | END 2024-01-17 10:15 | disposition home or self-care (01) | LOC: HO.MRI 10:14 | PROVIDERS: PCP Internal Medicine; Visit Provider Physical Medicine & Rehabilitation | DX: M51.360 Other intervertebral disc degeneration, lumbar region with discogenic back pain only (principal) | CPT/HCPCS: 72148 ==

== ENCOUNTER 2024-01-18 12:48 | Outpatient (REF) | payer MEDICAID, SELFPAY ==
--- NOTE | ~2024-01-18 | US_ITS ---
EXAMINATION: US PELVIS CLINICAL INFORMATION: Abdominal and pelvic swelling, question fibroid seen on x-ray, postmenopausal, denies pain. COMPARISON: None available. TECHNIQUE: Ultrasound of the pelvis is performed using both transabdominal and transvaginal transducers along with Doppler. Transvaginal imaging is performed due to inadequate visualization transabdominally. Limited visualization due to bowel gas and body habitus. FINDINGS: Anteverted uterus measures 6.4 x 2.9 x 3.5 cm. Right ovary measures 1.3 x 1.0 1.2 cm, volume 0.18 mL. Left ovary measures 1.4 x 0.8 x 1.6 cm, volume 0.91 mL. No significant free fluid. Endometrial thickness is 0.2 cm, although visualization is limited. Limited visualization due to bowel gas and body habitus. 2.2 x 1.7 x 2.1 cm and 0.9 x 1.2 x 1.2 cm uterine masses demonstrate extensive shadowing echogenic foci characteristic of coarse calcifications. Visualization limited due to extensive shadowing from calcifications. Appearance is characteristic of fibroids. US/US pelvic and transvaginal IMPRESSION: 1. Calcified uterine masses are characteristic of fibroids. Visualization of the uterus and endometrium severely limited due to bowel gas, body habitus and shadowing from calcifications. 2. Image portion of the endometrium with thickness of 0.2 cm, visualization limited and only a short segment is visualized. 3. Bilateral ovaries are unremarkable. Electronically signed by: Leonor Reese MD 02/07/2024 09:33 AM [facility] [place]
== END 2024-01-18 12:49 | disposition home or self-care (01) ==
LOC: HO.HMGCX 12:48
PROVIDERS: PCP Internal Medicine; Visit Provider Internal Medicine
DX: R19.00 Intra-abdominal and pelvic swelling, mass and lump, unspecified site (principal); D25.9 Leiomyoma of uterus, unspecified; Z78.0 Asymptomatic menopausal state
CPT/HCPCS: 76830; 76856

== ENCOUNTER 2024-02-13 09:04 | Outpatient (AMB) | payer MEDICAID, SELFPAY ==
--- NOTE | 2024-02-13 09:16 | MHC.OFFVIS ---
Vital Signs 02/13/24 09:18 Height 4 ft 11.75 in Weight 92 lb 9.506 oz BMI 18.2 BP 96/68 Blood Pressure Location Lt brachial Position Sitting Pulse 75 Pulse Source Pulse Oximeter Intake Visit Reasons: Osteoporosis Intake Note: Patient present todat for Osteoporosis follow up. Process Laboratory Specialist Required: No Accompanied by: Self / Same As Patient Allergies No Known Allergies Allergy (Verified 02/13/24 09:19) HPI Comments Details: 68 YO Female with PMHx Osteoporosis, who is seen in F/U for Osteoporosis. First diagnosed in 2020, prior to that she had Osteopenia. She was previously on Fosamax weekly. This was started in 2020. After her initial visit with me in November 2020 we stopped her Fosamax and HCTZ and she was asked to complete a full biochemical evaluation for secondary causes of Osteoporosis, and F/U today to review the results. She did stop the Fosamax and HCTZ and did her workup, but unfortunately her urine collection was an insufficient collection with only 350 cc collected. She failed treatment with Fosamax because her BMD has worsened on this. No history of pathologic fracture or ONJ. Has 2-3 servings of dietary calcium per day in the form of milk, cheese and ensure. She does not take a Calcium supplement. Takes 1000 IU of Vitamin D daily. Denies ever using PPI, anticoagulant, antiepileptic or glucocorticoid medication. Does weight bearing exercise 7 days per week in the form of walking and playing with her Grandkids. Fracture history: Had a traumatic fracture of her L arm and pelvis in 1989 when she fell out a window. No fragility fractures. 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 Menses were always regular. . She did not breastfeed. Menopause was age 54. She did not use HRT. Denies history of Kidney stones: Denies family history of Osteoporosis or hip fracture. UTD on dental cleanings and sees dentist every 6 months. No planned upcoming dental work or extractions. Of note, she was recently diagnosed with squamous cell carcinoma of the lung and underwent surgical resection. She states there is no plan for chemo or radiation at this time. DXA dated 03/28/2020: FINDINGS: AP SPINE L1-L2 (excluding L3 and L4): The data of L1-L4 has been changed to exclude the L3 and L4 vertebral bodies, because degenerative changes at this level may cause overestimation of lumbar spine density. Current: BMD 0.979 g/cm2, Z-score 0.8, T-score -1.6, osteopenia, 2.9% decrease from baseline (<5% change is not significant). Baseline: BMD 1.008 g/cm2. LEFT FEMUR, NECK: Current: BMD 0.632 g/cm2, Z-score -0.9, T-score -2.9, osteoporosis. Baseline: BMD 0.705 g/cm2. LEFT FEMUR, TOTAL: Current: BMD 0.684 g/cm2, Z-score -0.8, T-score -2.6, osteoporosis, 5.8% decrease from baseline (<5% change is not significant). Baseline: BMD 0.726 g/cm2. Labs: Laboratory Tests 04/08/21 07/20/21 07/20/21 09:03 09:23 09:23 Creatinine 0.78 Estimated GFR > 60 PEP Interpretation SEE NOTE N-Telopeptide X-linked 25-OH Vitamin D Total 32.4 PTH Intact 46 Calcium (PTH Intact) 9.8 07/21/21 08:30 Creatinine Estimated GFR PEP Interpretation N-Telopeptide X-linked 44 25-OH Vitamin D Total PTH Intact Calcium (PTH Intact) Took a short couse of fosamax . No fragility fx. Smoking 2 cigs/day. Taking calcium and vitamin D . Repeat DEXA with VFA showed depressions of T7 compression fracture . Complain of pain in the base of the back [facility] Medical History (Updated 01/13/24 @ 19:57 by Donna Romero MD) History of adenomatous polyp of colon Chronic right shoulder pain Hiatal hernia Colon cancer screening Generalized anxiety disorder Polyarthralgia Leg cramps Vitamin D deficiency Squamous cell carcinoma Osteoporosis Restless leg syndrome COPD (chronic obstructive pulmonary disease) Impaired fasting glucose Fall Dyslipidemia Essential hypertension Surgical History Hx of colonoscopy S/P partial lobectomy of lung History of fusion of cervical spine History of hernia repair Family History Father Esophageal cancer Mother Cirrhosis HTN (hypertension) Diabetes mellitus Liver problem Brother Mental health disorder Daughter No problems noted. Social History Housing: House Alcohol intake: never Patient Tobacco Use Status: Current everyday Tobacco user Tobacco use type: Cigarette Cigarettes Per Day: 1 Years Smoked: 50 e-Cigarette/Vaping Use: Never Used service: No Current occupational status: disabled Current occupation: right hand dominant Cognitive needs: No Hearing needs: No Vision needs: No Physical Exam Vital Signs: Last Vital Signs Pulse 75 02/13/24 09:18 BP 96/68 02/13/24 09:18 BMI result Body Mass Index 18.2 Assessment & Plan Assessment & Plan (1) Osteoporosis: Code(s): M81.0 - Age-related osteoporosis without current pathological fracture Category: Medical Qualifiers: Osteoporosis type: age-related Presence of current pathological fracture: without current pathological fracture Qualified Code(s): M81.0 - Age-related osteoporosis without current pathological fracture Plan: 67-year-old white female with a history of osteoporosis. Secondary workup was negative. Patient had previously taken oral bisphosphonate with declining bone density. DEXA bone density showed a compression fracture of T7 Plan is to talk to the patient about using anabolic therapy particularly with the Evenity which would then be proceeded by anti resorptive therapy Coding Level of Care Code Est Pt Level 3 (06845) Diagnoses Age-related osteoporosis without current pathological fracture M81.0 Osteoporosis type: age-related Presence of current pathological fracture: without current pathological fracture
[2024-02-13 09:18] VITALS: BP 96/68; PULSE 75; BMI 18.2
== END 2024-02-13 10:20 | disposition home or self-care (01) ==
PROVIDERS: PCP Internal Medicine; Visit Provider Internal Medicine Endocrinology, Diabetes & Metabolism
DX: M81.0 Age-related osteoporosis without current pathological fracture (principal)
CPT/HCPCS: 99213

== ENCOUNTER 2024-02-23 08:55 | Outpatient (AMB) | payer MEDICAID, SELFPAY ==
--- NOTE | 2024-02-23 09:41 | AM.OFFVISNUR ---
Intake Visit Reasons: Evenity #1 Allergies No Known Allergies Allergy (Verified 02/13/24 09:19) Office Meds romosozumab-aqqg 210 mg/2.34 mL(105 mg/1.17 mL x2)subcutaneous syringe Performing Provider: Alexi Givens [place] [facility] [place] Administered by: Manohar Dsouza RN on 02/23/24 09:43 Dose Route Admin Location Dispensed Lot Number Expiration Date [facility] Business Support Coordinator 210 mg subcut Bilateral upper arms 2.34 mL [id number] 05/07/26 18586-200-93 AMGEN Comments: Patient tolerated procedure without issue. Educated on s/s to be aware of including redness, swelling, rash, pain to the injection site. Advised to seek immediate medical attention should she become symptomatic. All of pt's questions answered to her stated satisfaction. Pt monitored x 15 minutes post injection. No s/s of adverse side effects. Next appointment dates given. Assessment & Plan Assessment & Plan Orders: Orders AMB Romosozumab Injection Patient Supplied Today M81.0 - Age-related osteoporosis without current pathological fracture Medications: New romosozumab-aqqg 210 mg (2.34 mL) subcut ONCE 2.34 mL 0RF M81.0 - Age-related osteoporosis without current pathological fracture
== END 2024-02-23 09:56 | disposition home or self-care (01) ==
PROVIDERS: PCP Internal Medicine
DX: M81.0 Age-related osteoporosis without current pathological fracture (principal)

== ENCOUNTER → 2024-02-23 08:55 | Outpatient (BNVA) | payer MEDICAID, SELFPAY | PROVIDERS: PCP Internal Medicine | DX: M81.0 Age-related osteoporosis without current pathological fracture (principal) | CPT/HCPCS: 96372; J3111 ==

== ENCOUNTER 2024-03-01 12:07 | Outpatient (AMB) | payer MEDICAID, SELFPAY ==
--- NOTE | 2024-03-01 12:07 | MHC.OFFVIS ---
Intake Visit Reasons: MRI review- Lumbar degenerative disc disease Intake Note: Jamila 68 yr old female presents today via telephone for a lumbar spine MRI review. Allergies No Known Allergies Allergy (Verified 03/01/24 12:09) HPI Comments Details: History of osteoporosis over 5 years, managed by Dr. Givens. History of scoliosis. History of cervical fusion, by Dr. Coe, years ago. Says doing well, no neck pain now. She complains of lower back, right pelvis/hip and also right shoulder. Back pain has not been evaluated for a few years. Mostly right sided. Goes to hip not to groin. No numbness. No bladder/bowel changes. Telehealth today is to discuss lumbar MRI results. [facility] Medical History (Updated 03/01/24 @ 12:16 by Arlette Lindsey MD) History of adenomatous polyp of colon Chronic right shoulder pain Hiatal hernia Colon cancer screening Generalized anxiety disorder Polyarthralgia Leg cramps Vitamin D deficiency Squamous cell carcinoma Osteoporosis Restless leg syndrome COPD (chronic obstructive pulmonary disease) Impaired fasting glucose Fall Dyslipidemia Essential hypertension Surgical History Hx of colonoscopy S/P partial lobectomy of lung History of fusion of cervical spine History of hernia repair Family History Father Esophageal cancer Mother Cirrhosis HTN (hypertension) Diabetes mellitus Liver problem Brother Mental health disorder Daughter No problems noted. Social History Housing: House Alcohol intake: never Patient Tobacco Use Status: Current everyday Tobacco user Tobacco use type: Cigarette Cigarettes Per Day: 1 Years Smoked: 50 e-Cigarette/Vaping Use: Never Used service: No Current occupational status: disabled Current occupation: right hand dominant Cognitive needs: No Hearing needs: No Vision needs: No Telehealth Telehealth Telehealth Platform: Telephone Location of provider rendering services: practice address Location of patient: address on file Patient Identification confirmed using: Name, : Yes Telehealth method: voice only Patient verbally consented to treatment: Yes Patient verbally consented to billing insurance company: Yes Patient informed of any privacy concerns related to visit: Yes Results Reviewed Results Reviewed: Lumbar spine MRI images reviewed, disc desiccation seen most severely L2-3 and L4-5. Both level shows [id number] right foraminal stenosis. Moderate, not severe, central spinal stenosis. Ordering Physician: Arlette Giron Date of Service: 01/17/24 Procedure(s): MR lumbar spine wo con Accession Number(s): [id number] cc: Donna Romero MD; Arlette Giron~ EXAMINATION: MR LUMBAR SPINE WITHOUT CONTRAST CLINICAL INFORMATION: Right L5-S1 disc herniation. Spinal stenosis. COMPARISON: Lumbar spine radiographs from 11/17/2023. Thoracic spine MRI from 12/04/2023. CT chest from 05/14/2015. TECHNIQUE: MRI of the lumbar spine was obtained using routine sequences without contrast. FINDINGS: Moderate left convex curvature of the lumbar spine. Moderate right lateral translation of L2 on L3. Mild right lateral translations of L3 on L4 and L4 on L5. Straightening of the normal lumbar lordosis. Advanced degenerative disc disease at L2-L3 and L4-L5. Moderate degenerative disc disease from T11-L-1 and at L3-L4. Mild degenerative disc disease at all additional levels. Associated mixed Modic type discogenic endplate changes including Modic type I discogenic edema from at T12-L1 and from L2-L5. Moderate marrow edema within the posterior elements of L3-L5 consistent with degenerative stress reaction. No additional suspicious marrow edema. Small Schmorl's nodes from T11-L1. Otherwise, the vertebral body heights are well-maintained. There is an intradural, extramedullary nodule in the right anterior aspect of the thecal sac at the level of T11-T12, measuring approximately 0.7 x 0.5 x 0.9 cm (there was a partially calcified 0.6-0 0.3 x 0.7 cm nodule in this location in 2016). The conus medullaris terminates at the level of L2. The distal spinal cord is normal in appearance. No significant abnormalities of the paraspinal musculature. Limited evaluation of the intra-abdominal structures without significant abnormalities. The abdominal aorta is of normal contour and caliber. AXIAL SPINAL LEVELS: L1-L2: Normal annular contour. There is mild bilateral facet joint arthropathy. There is no neural foraminal stenosis. There is no spinal canal stenosis. L2-L3: Moderate diffuse disc bulge with posterior osseous ridging. There is severe right and moderate left facet joint arthropathy. There is severe right and moderate left neural foraminal stenosis. There is stenosis of the subarticular zones with moderate to severe spinal canal stenosis centrally. L3-L4: Moderate diffuse disc bulge with posterior osseous ridging. There is severe right and moderate left facet joint arthropathy. There is moderate bilateral neural foraminal stenosis. There is stenosis of the right subarticular zone with mild spinal canal stenosis centrally. L4-L5: Moderate diffuse disc bulge with posterior osseous ridging. There is moderate bilateral facet joint arthropathy. There is severe right and mild to moderate left neural foraminal stenosis. There is stenosis of the right subarticular zone with mild spinal canal stenosis centrally. L5-S1: Normal annular contour. There is moderate bilateral facet joint arthropathy. There is no neural foraminal stenosis. There is mild narrowing of the subarticular zones with no overt spinal canal stenosis centrally. MR/MR lumbar spine wo con IMPRESSION: Moderate to advanced multilevel degenerative spondyloarthropathy of the lumbar spine as described in detail above. Most notably, there is moderate to severe spinal canal stenosis at L2-L3. Mild spinal canal stenoses at L3-L4 and L4-L5. Narrowing/stenoses of the subarticular zones and moderate to severe neural foraminal stenoses from L2-L5. There is a 0.9 cm intradural, extramedullary nodule at the level of T11-T12. Prior CT imaging demonstrated a partially calcified nodule in this location and 2016 suggesting underlying meningioma. Electronically signed by: Liborio Hernandez DO 02/23/2024 12:14 PM [facility] Assessment & Plan Assessment & Plan (1) Lumbar spinal stenosis: Code(s): M48.061 - Spinal stenosis, lumbar region without neurogenic claudication Category: Medical Qualifiers: Neurogenic claudication status: unspecified Qualified Code(s): M48.061 - Spinal stenosis, lumbar region without neurogenic claudication (2) Lumbar degenerative disc disease: Code(s): M51.369 - Other intervertebral disc degeneration, lumbar region without mention of lumbar back pain or lower extremity pain Category: Medical Qualifiers: Disc-related pain type: discogenic back pain only Qualified Code(s): M51.360 - Other intervertebral disc degeneration, lumbar region with discogenic back pain only Plan Telehealth today to discuss lumbar MRI results. Results as above. Discussed treatment options including epidural injection versus referral to neuro spine. Given her osteoporosis, I am not sure if she is a candidate for either. Patient advised to discuss with Dr. Givens if she is clear to get epidural steroid injections. Patient will let me know after. I will have to refer to pain management for such injections, to be done under fluoroscopy. Assessment and plan discussed with patient, and patient was agreeable. All questions were answered thoroughly. Total of 25 minutes spent today including chart review, results review, history taking, physical examination, discussion of assessment and plan, and coordination of care. Telephonic encounter. Arlette Lindsey MD, [place] Board Certified, [place] [employer] and Rehabilitation (ABPMR) Board Certified, [place] Board [employer] Electrodiagnostic Medicine (ABEM) Coding Level of Care Code Est Pt Level 4 (34594) Diagnoses Spinal stenosis of lumbar region, unspecified whether neurogenic claudication present M48.061 Neurogenic claudication status: unspecified Degeneration of intervertebral disc of lumbar region with discogenic back pain M51.360 Disc-related pain type: discogenic back pain only
--- OUTSIDE RECORDS SUMMARY | 2024-03-01 14:29 | XMS_ITS | Clinical Summary ---
Author Organization [facility] it Address [address] [place] [address] Care Team Providers Care Manager Configuration Name Role Phone Donna Romero MD Primary Care Provider [phone] Allergies No known active allergies Medications Medication Sig Dispensed Refills Start Date End Date Status meloxicam (MOBIC) 15 mg tablet Take 1 Tablet by mouth daily. Active atorvastatin (LIPITOR) 20 mg tablet Take 20 mg by mouth daily. Active fluticasone-umeclidi nium-vilanterol (Trelegy Ellipta) 100-62.5-25 mcg inhaler Inhale into the lungs. Active nabumetone (RELAFEN) 500 mg tablet Take 1 Tablet by mouth 2 times daily. Active omeprazole (PriLOSEC) [address] capsule TAKE ONE CAPSULE BY MOUTH EVERY MORNING ON AN EMPTY STOMACH; WAIT 30 MINUTES AND THEN EAT TO ACTIVATE MEDICATION 09/23/2023 Active PARoxetine (PAXIL) 40 mg tablet Take 40 mg by mouth every morning. Active pramipexole (MIRAPEX) 0.25 mg tablet Take 0.25 mg by mouth 3 times daily. Active Oxygen Therapy (O2) gas Inhale into the lungs. Oxygen Historical (HISTORICAL OXYGEN) Active Active Problems Problem Noted Date Diagnosed Date Hiatal hernia 12/15/2021 Overview (01/13/2024): Last Assessment & Plan: CT demonstates small hiatal hernia and patient is symptomatic. She is not medically managed at this time and once optimized and her symptoms continue, can consider surgical treatment. Prescribe Omperazole 20 mg daily and refer to GI for evaluation. 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 Ramírez is a 66 yr. female who in May 2020 underwent a robotic right upper lobectomy for stage Ia squamous cell carcinoma and who is also being followed for an anterior mediastinal mass . Cyctic apperaring anterior mediastinal mass is slighlty smaller in appearance when compared to 6 months ago. This is most likely a benign cystic structure however a thymoma or lymphoma cannot be ruled out completely. Discussed options with patient regarding surgical resection for diagnosis and potentially therapeutic purposes versus ongoing imaging. She opted for a repeat CT scan in 6 months. Surgical History Surgery Date Site/Laterality Comments OTHER SURGICAL HISTORY PROCEDURE: DE RMVL LUNG OTH/THN PNUMEC RESXN-PLCTJ EMPHY LUNG OTHER SURGICAL HISTORY 06/03/2020 Right PROCEDURE: DE RESCJ&BRONCHOPLASTY PFRMD TM LOBEC/SGMECTOMY; COMMENT: RUL Wedge w/ completetion RUL lobectomy Medical History Medical History Date Comments Nocturnal hypoxia 04/24/2017 DX:Nocturnal h ypoxia Depression 04/24/2017 DX:Depression COPD (chronic obstructive pu lmonary disease) (CMS/HCC) DX:COPD (chronic obstructive pulmonary disease) (HCC) Ventral hernia without obstr uction or gangrene DX:Ventral hernia without ob struction or gangrene Lung cancer (CMS/HCC) DX:Lung ca ncer (HCC) Hiatal hernia DX:Hiatal hernia Dysphagia DX:Dysphagia Esophageal reflux DX:Esophageal reflux Family History Medical History Relation Name Comments Hypertension Brother Hypertension Daughter Other: other Daughter Breast Mass Throat cancer Father Liver disease Mother Liver Cirrosis Relation Name Status Comments Brother Daughter Alive Father Mother Social History Tobacco Use Types Packs/Day Years Used Date Smoking Tobacco: Some Days Cigarettes Last attempted to quit: 05/11/2021 Smokeless Tobacco: Never Alcohol Use Standard Drinks/Week Comments No 0 (1 standard drink = 0.6 oz pur e alcohol) Sex and Gender Information Value Date Recorded Sex Assigned at Not on file Gender Identity Not on file Sexual Orientation Not on file Obstetrics History Last Filed Vital Signs Vital Sign Reading Time Taken Comments Blood Pressure 100/66 10/14/2023 8:56 AM EDT Sitting L Arm Pulse 66 10/14/2023 8:56 AM EDT Temperature - - Respiratory Rate - - Oxygen Saturation - - Inhaled Oxygen Concentration - - Weight 38.7 kg (85 lb 6.4 oz) 8:56 AM EDT Height 149.9 cm (4' 11 ) 10/14/2023 8:5 6 AM EDT Body Mass Index 17.25 10/14/2023 8:56 AM EDT Plan of Treatment Upcoming Encounters Date Type Department Care Team (Late st Contact Info) Description 04/12/2024 8:30 AM EST Office Visit Pulmonolgy - [facility] [address] [place] [id number] Ana Flaherty MD [address] [place] [address] Health Maintenance Due Date Last Done Comments Breast Cancer Screening 1955 COVID-19 Vaccine (#1) 09[birth year]07/1960 Pneumococcal Vaccine: 65+ Ye ars (1 of 2 - PCV) 1960 DTaP,Tdap,and Td Vaccines (1 - Tdap) 1973 Hepatitis A Vaccines (1 of 2 - Risk 2-dose series) 1973 Zoster Vaccines (1 of 2) 1973 RSV Immunization Patients 60 + Years Old (1 - Risk 60-74 years 1-dose series) 2014 Cholesterol Screening (Lipid Panel) 01/05/2022 Colorectal Cancer Screening: Colonoscopy 01/05/2022 Depression Screening 01/05/2022 Falls Risk Assessment 01/05/2022 Hepatitis C Screening 01/05/2022 Osteoporosis Screening (Bone Density Screening) 01/05/2022 Social Influencers of Health Screening 01/05/2022 Influenza Vaccine (#1) 2023 HIB Vaccines Aged Out No longer eligi ble based on patient's age to complete this topic HPV Vaccines Aged Out No longer eligi ble based on patient's age to complete this topic Hepatitis B Vaccines Aged Out No long er eligible based on patient's age to complete this topic IPV Vaccines Aged Out No longer eligi ble based on patient's age to complete this topic MMR Vaccines Aged Out No longer eligi ble based on patient's age to complete this topic Meningococcal ACWY Vaccine Aged Out N o longer eligible based on patient's age to complete this topic RSV Immunization Patients Un rita 20 months Aged Out No longer eligible b ased on patient's age to complete this topic Varicella Vaccines Aged Out No longer eligible based on patient's age to complete this topic Care Teams Manager Configuration Relationship Specialty Start Date End Date Donna Romero MD [address] [place] [address] PCP - General Internal Medicine 10/30/18
== END 2024-03-01 12:14 | disposition home or self-care (01) ==
LOC: HO.HOS 12:07
PROVIDERS: PCP Internal Medicine; Visit Provider Physical Medicine & Rehabilitation
DX: M48.061 Spinal stenosis, lumbar region without neurogenic claudication (principal); M51.360 Other intervertebral disc degeneration, lumbar region with discogenic back pain only
CPT/HCPCS: 99214

== ENCOUNTER 2024-04-12 10:19 | Outpatient (AMB) | payer MEDICAID, SELFPAY ==
--- NOTE | 2024-04-12 11:05 | AM.OFFVISNUR ---
Intake Visit Reasons: Evenity #2 Allergies No Known Allergies Allergy (Verified 03/01/24 12:09) Nursing Note Patient was accompanied by daughter to visit today. Patient reporting she was just discharged from [facility] today where she was being treated for pneumonia. Patient's daughter was expressing concern that the day after patient received evenity she developed whole body aches, headache and extreme fatigue. They were advised by the ER doctor as well as the cyber intel planner, while in patient, to discuss this prior to her second injection. I advised that currently Dr. Givens is not in office and that I would speak with Dr. Isidro. Dr. Isidro did come in to discuss further with both the patient and daughter. Daughter again expressed the same symptoms and concern that this would happen again. Dr. Isidro explained that Jamila could have already had a virus that was developing and it just coincided with her first evenity injection. Evenity itself can cause muscle aches and fatigue but would itself not cause pneumonia. We cannot 100% say that the symptoms patient experienced were due to the evenity or due to her having a virus that she was fighting. If patient were agreeable then we would give the second evenity injections and have patient monitor for return of the headache, muscle aches and fatigue. Patient and daughter are both agreeable to the second injection and will monitor as well as log her symptoms if they were to develop. We advised to call our office as well as we would want patient to schedule a follow up with Dr. Givens to discuss symptoms as well as discuss alternative treatment plans. Patient and daughter were agreeable to this plan. Patient tolerated injection well and scheduled for third evenity in four weeks pending patient remains asymptomatic. Office Meds romosozumab-aqqg 210 mg/2.34 mL(105 mg/1.17 mL x2)subcutaneous syringe Performing Provider: Jazzy Isidro MD [place] [facility] [place] [facility] Administered by: Kemi Cornejo RN on 04/12/24 10:50 Dose Route Admin Location Dispensed Lot Number Expiration Date NDC [employer] 210 mg subcut bilateral upper arms 2.34 mL [id number] 05/07/26 48997-467-67 [facility] Comments: Assessment & Plan Assessment & Plan Orders: Orders AMB Romosozumab Injection Patient Supplied Today M81.0 - Age-related osteoporosis without current pathological fracture Coding
--- OUTSIDE RECORDS SUMMARY | 2024-04-12 12:11 | XMS_ITS | Encounter Summary ---
Author Organization [facility] Address [address] [place] [address] Care Team Providers Care Call Or Contact Centre Coach Name Role Phone Donna Romero MD Primary Care Provider [phone] Reason for Visit * Reason Comments Shortness of Breath * Auth/Cert (Routine) Specialty Diagnoses / Procedures Referred By Contac t Referred To Contact Diagnoses Shortness of breath COPD exacerbation (CMS/HCC) Multifocal pneumonia Procedures [facility] IP/OBS CARE ADMIT/DISCHARGE SAME DATE MODERATE LEVEL Josep Ayala MD [address] [place] [phone] Phone: tel: fax: [facility] [address] [place] [phone] Phone: tel: Referral ID Status Reason Start Date Expiration Date Visits Re quested Visits Authorized [id number] 1 1 Encounter Details Date Type Department Care Team (Late st Contact Info) Description 03/24/2024 2:29 PM EST - 03/25/2024 3:51 PM EST Emergency [facility] [address] [place] [phone] Bryce Woods MD [address] [place] [id number] Josep Ayala MD [address] [place] [id number] [place] [address] [place] [phone] Donis Haas MD [address] [place] [phone] Multifocal pneumonia (Primary Dx); Shortness of breath; COPD exacerbation (CMS/HCC) Discharge Disposition: Home or Self Care Social History Tobacco Use Types Packs/Day Years Used Date Smoking Tobacco: Some Days Cigarettes Last attempted to quit: 05/11/2021 Smokeless Tobacco: Never Alcohol Use Standard Drinks/Week Comments No 0 (1 standard drink = 0.6 oz pur e alcohol) Interpersonal Safety Answer Date Record ed Physical Abuse 03/24/2024 Verbal Abuse 03/24/2024 Comments Unknown Sex and Gender Information Value Date Recorded Sex Assigned at Female 03/24/2024 3:15 PM EST Legal Sex Female 10:45 AM EST Gender Identity Female 03/24/2024 3:15 PM EST Sexual Orientation Straight 03/24/2024 3: 15 PM EST documented as of this encounter Last Filed Vital Signs Vital Sign Reading Time Taken Comments Blood Pressure 130/100 03/25/2024 7:28 AM EST Pulse 76 03/25/2024 7:28 AM EST Temperature 36.1 ??C (97 ??F) 03/25/2024 7:28 AM EST Respiratory Rate 16 03/25/2024 7:28 AM EST Oxygen Saturation 99% 03/25/2024 8:11 AM EST Inhaled Oxygen Concentration - - Weight 43.5 kg (96 lb) 03/24/2024 2:36 PM EST Height 125.3 cm (4' 1.32 ) 03/24/2024 2:36 PM ES T Body Mass Index 27.75 03/24/2024 2:36 PM EST documented in this encounter Discharge Summaries * DANIELA Perla - 03/25/2024 12:58 PM EST Images from the original note were not included. [place] DISCHARGE SUMMARY Patient Information Jamila Ramírez : 1955 [68 y.o.] Admitting Provider Josep Ayala MD Discharge Provider DANIELA Perla, Donis Haas, * Primary Care Physician Donna Romero MD Admission Date 03/24/2024 Discharge Date 03/25/2024 Discharge Destination: Home Code Status at Discharge: Full Code - Confirmed Hospital Course Summary COPD exacerbation secondary to multifocal pneumonia 68-year-old female with a past medical history significant for severe COPD maintained on nocturnal oxygen via nasal cannula at 2 L, lung cancer status post right upper lobectomy with continued tobacco use/abuse, GERD, hypertension, depression who presented to ED for persisting shortness of breath over the last 2 weeks. She reported dry cough, chest pain with cough, chills. Denied fever, night sweats, palpitation. On presentation, EKG was negative for ST change or T wave inversion. Troponin level was normal. During her observation, her O2 sat was at least 94% on 2 L. Her white count was stable at 11.9. Lactatelevel was normal. Legionella antigen was negative. Respiratory virus panel was negative. CT chest angio was negative for PE, however it showed multiple focal pneumonia, mediastinal adenopathy. She was managed with antibiotic, steroid, bronchodilators. Respiratory status improved. She was seen and passed home oxygen evaluation. Patient to maintain 2 L home oxygen at night. Patient discharged and was recommended to follow-up with PCP. Smoking cessation was strongly advised. Hyperlipidemia On statin. GERD On PPI. Depression Follow-up with PCP. Tobacco dependence/abuse Tobacco abuse counseling Stopped smoking 2 weeks ago since she was sick. Denying nicotine replacement therapy. Smoking cessation strongly advised. Degenerative spine change Seen on imaging. Patient with a history of lung cancer status post right upper lobectomy. I did reach out to thoracic team (Dannie Givens) for outpatient follow-up. Procedures done: CT Angio Chest wo and/or w Contrast Final Result Impression: No evidence of pulmonary embolism. Multifocal tree-in-bud densities and scattered ground-glass density, nonspecific but compatible with multifocal pneumonia. Follow-up recommended to ensure resolution. Thin-walled cavitary lesion within the right lower lobe. Correlation with any outside imaging. This is a benign/chronic appearance. Mediastinal adenopathy. This document has been electronically signed by: Jhony Arellano MD on 03/24/2024 19:10:20 XR Chest 2 Views Final Result FINDINGS/IMPRESSION: Extensive emphysematous changes with flattening of the diaphragms and postsurgical changes of the right upper lobectomy with overall decreased right thoracic volume and scarring at the base with sutures at the right hilum. There is no consolidation. Partially visualized cervical fusion hardware. Pleural thickening at the right apex. Normal heart size with mildly increased interstitial prominence. Stable degenerative osseous changes.. -------- FINAL REPORT -------- Dictated By: Abiodun Weston Dictated Date: 03/24/2024 16:27 ET Assigned Physician: Abiodun Weston Reviewed and Electronically Signed By: Abiodun Weston Signed Date: 03/24/2024 16:33 ET Workstation ID: [id number] Transcribed By: Self Edit Transcribed Date: 03/24/2024 16:29 ET Condition upon discharge Visit Vitals BP (!) 130/100 Pulse 76 Temp 36.1 ??C (97 ??F) Resp 16 Temp (24hrs), Av.4 ??C (97.6 ??F), Min:35.9 ??C (96.6 ??F), Max:37.3 ??C (99.2 ??F) Body mass index is 27.75 kg/m??. No results found for: PTWT , PTHT GEN: Alert, oriented. No distress. HEENT: Atraumatic, symmetric, PERRLA. Neck: Supple, nontender, no range of motion limitation. Lungs: crackles. No accessory muscle use. Heart: Regular, no murmur. Abdomen: Not distended, soft, nontender. Bowel sounds present. Neuro: Alert, oriented. Cranial nerves II to XII grossly intact. No facial droop. No motor deficit,no sensory deficit. Psych: Cooperative, calm. This note was written using [employer] speech recognition software which is prone to typographical errors. If questions occur please do not hesitate to call this provider. Follow-Up Instructions and Recommendations [facility] [address] [place] [phone] No discharge procedures on file. There are no outpatient Patient Instructions on file for this admission. Discharge Medications Your medication list START taking these medications Instructions Last Dose Given Next Dose Due azithromycin 500 mg tablet Commonly known as: ZITHROMAX Take 1 tablet (500 mg total) by mouth at bedtime for 3 doses. cefpodoxime 200 mg tablet Commonly known as: VANTIN Take 1 tablet (200 mg total) by mouth 2 (two) times a day for 5 days. dextromethorphan-guaiFENesin 10-100 mg/5 mL syrup Commonly known as: ROBITUSSIN-DM Take 10 mL by mouth every 4 (four) hours if needed for cough for up to 10 days. ipratropium-albuteroL 0.5-2.5 mg/3 mL nebulizer solution Commonly known as: DUONEB Take 3 mL by nebulization 4 (four) times a day if needed for wheezing or shortness of breath for upto 7 days. predniSONE 10 mg tablet Commonly known as: DELTASONE Start taking on: March 25, 2024 Take 4 tablets (40 mg total) by mouth 1 (one) time each day for 2 days, THEN 3 tablets (30 mg total) 1 (one) time each day for 2 days, THEN 2 tablets (20 mg total) 1 (one) time each day for 2 days, THEN 1 tablet (10 mg total) 1 (one) time each day for 2 days. CONTINUE taking these medications Instructions Last Dose Given Next Dose Due atorvastatin 20 mg tablet Commonly known as: LIPITOR Take 20 mg by mouth daily. Evenity Generic drug: romosozumab-aqqg Inject 2.34 mL (210 mg total) under the skin every 30 (thirty) days. nabumetone 500 mg tablet Commonly known as: RELAFEN Take 1 Tablet by mouth 2 times daily. omeprazole [address] capsule Commonly known as: PriLOSEC TAKE ONE CAPSULE BY MOUTH EVERY MORNING ON AN EMPTY STOMACH; WAIT 30 MINUTES AND THEN EAT TO ACTIVATE MEDICATION Oxygen Therapy gas Commonly known as: O2 Inhale into the lungs. Oxygen Historical (HISTORICAL OXYGEN) Trelegy Ellipta 100-62.5-25 mcg inhaler Generic drug: wdkoiifnemc-fgulclowuueo-iezoqetszb Inhale into the lungs. Where to Get Your Medications These medications were sent to [id number] - [place] - [address] [facility] [address] [place] [phone] azithromycin 500 mg tablet cefpodoxime 200 mg tablet dextromethorphan-guaiFENesin 10-100 mg/5 mL syrup ipratropium-albuteroL 0.5-2.5 mg/3 mL nebulizer solution predniSONE 10 mg tablet Case discussed with Dr Mccracken Time spent: 30 min Cosigned by Donis Haas MD at 03/25/2024 4:29 PM EST Associated attestation - Donis Haas MD - 03/25/2024 4:29 PM EST This is a split/shared visit with DANIELA Perla. I personally performed the medical decision making (MDM) for the care of this patient on 03/25/24 as documented below I have personally seen and examined the patient with the resident/PA/INFECTIOUS DISEASES PHYSICIAN and smith elements of all parts of the encounter were performed by me. Patient was reassessed on more than one occasion when required. I reviewed the interval history, interpreted all available radiographic, laboratory and physiological data at the time of service. I agree with the assessment and plan as documented by the resident/PA/INFECTIOUS DISEASES PHYSICIAN with additions. Patient is already feeling better, she will continue her chronic bronchodilators, she had no increase in her baseline supplemental oxygen requirement, she will complete antibiotic course in the outpatient setting, thoracic surgery service who knows the patient has been contacted to request follow-up of imaging and compared with prior studies with regards of the cavitary lesion. Michael Mccracken MD 03/25/24 4:28 PM EST documented in this encounter Medications at Time of Discharge ipratropium-albut Tiera (DUONEB) 0.5-2.5 mg/3 mL nebulizer solutionIndicatio ns:COPD exacerbation (CMS/HCC) Take 3 mL by nebulization 4 (four) times a day if needed for wheezing or shortness of breath for up to 7 days. 84 mL 03/25/2024 nabumetone (RELAFEN) 500 mg tablet Take 1 tablet (500 mg total) by mouth 2 (two) times a day. omeprazole (PriLOSEC) [address] capsule Take 1 capsule (20 mg total) by mouth 1 (one) time each day. 09/23/2023 Oxygen Therapy (O2) gas Inhale into the lungs. Oxygen Historical (HISTORICAL OXYGEN) romosozumab-aqqg (Evenity) Inject 2.34 mL (210 mg total) under the skin every 30 (thirty) days. atorvastatin (LIPITOR) 10 mg tablet Take 1 tablet (10 mg total) by mouth 1 (one) time each day. 02/03/2024 5 atorvastatin (LIPITOR) 20 mg tablet Take 20 mg by mouth daily. 5 azithromycin (ZITHROMAX) 500 mg tablet Take 1 tablet (500 mg total) by mouth at bedtime for 3 doses. 3 each 03/25/2024 5 cefpodoxime (VANTIN) 200 mg tablet Take 1 tablet (200 mg total) by mouth 2 (two) times a day for 5 days. 10 each 03/25/2024 5 dextromethorphan- guaiFENesin (ROBITUSSIN-DM) 10-100 mg/5 mL syrup Take 10 mL by mouth every 4 (four) hours if needed for cough for up to 10 days. 600 mL 03/25/2024 5 fluticasone-umecl idinium-vilantero l (Trelegy Ellipta) 100-62.5-25 mcg inhaler Inhale 1 puff (100 mcg total) by mouth 1 (one) time each day. 5 predniSONE (DELTASONE) 10 mg tablet Take 4 tablets (40 mg total) by mouth 1 (one) time each day for 2 days, THEN 3 tablets (30 mg total) 1 (one) time each day for 2 days, THEN 2 tablets (20 mg total) 1 (one) time each day for 2 days, THEN 1 tablet (10 mg total) 1 (one) time each day for 2 days. 20 each 03/25/2024 5 documented as of this encounter Ordered Prescriptions Prescription Sig Dispense Quantity Refills Last Filled Start Date End Date ipratropium-albut Tiera (DUONEB) 0.5-2.5 mg/3 mL nebulizer solutionIndicatio ns:COPD exacerbation ([facility]) Take 3 mL by nebulization 4 (four) times a day if needed for wheezing or shortness of breath for up to 7 days. 84 mL 03/25/2024 predniSONE (DELTASONE) 10 mg tablet Take 4 tablets (40 mg total) by mouth 1 (one) time each day for 2 days, THEN 3 tablets (30 mg total) 1 (one) time each day for 2 days, THEN 2 tablets (20 mg total) 1 (one) time each day for 2 days, THEN 1 tablet (10 mg total) 1 (one) time each day for 2 days. 20 each 03/25/2024 5 predniSONE (DELTASONE) 10 mg tablet Take 4 tablets (40 mg total) by mouth 1 (one) time each day for 2 days, THEN 3 tablets (30 mg total) 1 (one) time each day for 2 days, THEN 2 tablets (20 mg total) 1 (one) time each day for 2 days, THEN 1 tablet (10 mg total) 1 (one) time each day for 2 days. 20 each 03/25/2024 5 dextromethorphan- guaiFENesin (ROBITUSSIN-DM) 10-100 mg/5 mL syrup Take 10 mL by mouth every 4 (four) hours if needed for cough for up to 10 days. 600 mL 03/25/2024 5 cefpodoxime (VANTIN) 200 mg tablet Take 1 tablet (200 mg total) by mouth 2 (two) times a day for 5 days. 10 each 03/25/2024 5 azithromycin (ZITHROMAX) 500 mg tablet Take 1 tablet (500 mg total) by mouth at bedtime for 3 doses. 3 each 03/25/2024 5 documented in this encounter Discharge Disposition Disposition Code Departure Means Destination Home or Self Care documented in this encounter Progress Notes * Patrizia Irvin RN - 03/25/2024 2:40 PM EST ..Discharge packet dicussed via telephone with daughter. All medications, follow up appointments and post dc instructions reviewed and understood with patient. All questions answered and necessary teaching done. * Regina Elmore RN - 03/25/2024 2:25 PM EST 03/25/24 1425 Transportation Transportation at discharge Family What day is the transport expected? 03/25/24 What time is the transport expected? 1300 Final Discharge Disposition Home Health Care Services ([facility]) Patient passed home oxygen eval for no additional oxygen needs during the day and is discharging home with [facility] via Daughter * Kathi Pena - 03/25/2024 12:48 PM EST 03/25/24 1234 Qualify for Home O2 On at rest Room air SpO2 at rest 92 % On with exertion Room air SpO2 w/ exertion 90 % Amount of exertion time walked 6 Minutes SOB at times during ambulation Patient does not qualify for Oxygen at this time * Regina Elmore RN - 03/25/2024 11:00 AM EST 03/25/24 1059 Initial Transition Plan Initial Transition Plan Home Health Care Discharge Planning Living Arrangements Alone Type of Residence Private residence Assistive Devices Walker;Oxygen (Active with [employer]) Support Systems Children Medication Coverage Has Med Coverage Under Insurance Plan Yes Medication Affordability No concerns related to payment for meds Anticipated Discharge Needs Discipline following for SNF placement Roll [place]ucker Informed Choice Informed Choice Given? Yes Transportation Transportation at discharge Family Daughter/proxy Katerine at bedside for planning and in agreement with referral for home services to [facility]. Per patient she has her proxy document at home. * Kemi Cunningham RN - 03/25/2024 2:33 AM EST Goals: improve aeration Identify possible barriers to meeting goals/advancing plan of care: ins/exp wheezes, IV abx, pna Stability of the patient: Moderately Stable - Low risk of patient condition declining or worsening End of Shift Summary: Alert and oriented, pleasant. She is able to make needs known, call gore in reach. Safety maintained. * Fish Gambino RN - 03/24/2024 9:03 PM EST ED RN HANDOFF (All Lane Below Must Be Completed) Reason/Diagnosis for Admission: Type of Admission: [x] Medsurg, [] Telemetry Already in a Hospital Bed: [] Yes / [x] No Room Considerations/Precautions (ex: fever, diarrhea, or any infectious concerns): [] Yes / [x] No Director Appointment: [] Yes / [x] No If YES, Cardiac Rhythm: [] NSR, [] SB, [] ST, [] A-FIB, [] A-Flutter, [] Pacemaker, [] 1st Degree HB, [] 2nd Degree HB, [] 3rd Degree HB Reason for Director Appointment: VS: Visit Vitals BP 103/67 (BP Location: Left arm, Patient Position: Sitting) Pulse 84 Temp 36.9 ??C (98.5 ??F) (Oral) Resp 18 Ht 1.253 m (49.32 ) Wt (!) 43.5 kg (96 lb) SpO2 97% BMI 27.75 kg/m?? Smoking Status Some Days BSA 1.19 m?? Current Mental Status: A/O x [x]4, []3, []2, []1 Current Ambulation Status: IV Access: [x] Yes / [] No Field IV present: [] Yes / [x] No Hx of Violence: [] Yes / [] No / [x] Unknown Fall Risk:[] Yes / [x] No Yellow Bracelet Applied [] Yes / [x] No Yellow Socks Applied [] Yes / [x] No Patient Belongings inventoried and BL completed: [] Yes / [] No Patient belongings stored in the security closet: [] Yes (If Yes please supply Security bag #): [x] No Patient Medications stored in Pharmacy: [] Yes (If Yes please supply Medication Security bag #): [x] No ED Summary of Care: 68-year-old female with past medical history significant for moderate/severe COPD on 2 L of nasal cannula at nighttime, lung cancer status post RUL lobectomy, GERD, among others presenting with 2 weeks of worsening cough, shortness of breath. Xray confirms multifocal pneumonia, pt receiving IV abx. Pt A&Ox4. CT of chest was negative. Submitted by and Phone Extension: [phone] * Melba Villalpando RN - 03/24/2024 2:29 PM EST BIBA from urgent care with complaints of SOB. Persistent cough the last 2 weeks, went to urgent care today because of worsening symptoms. 125 solumedrol and a duoneb was given. Baseline 2L NC at home. * DANIELA Ruffin - 03/24/2024 2:16 PM EST Emergency Medicine Note Patient Name: Jamila Ramírez Initial Evaluation: 03/24/2024 : 1955 Patient's PCP: Donna Romero MD Emergency Physician: DANIELA Ruffin History of Present Illness Chief Complaint: Chief Complaint Patient presents with Shortness of Breath HPI: This is a 68-year-old female with past medical history significant for moderate/severe COPD on2 L of nasal cannula at nighttime, lung cancer status post RUL lobectomy, GERD, among others presenting with 2 weeks of worsening cough, shortness of breath. Does endorse occasional fevers at home aswell as chest pain with coughing or deep inspiration only, no chest pain at rest or chest pain withexertion. It is substernal. Productive cough of clear phlegm without hemoptysis. No lower extremitypain or swelling. Denies dizziness, lightheadedness, weakness, back pain, abdominal pain, nausea, vomiting, diarrhea, palpitations. She went to urgent care today and was redirected to the emergency room via EMS due to hypotension, increased work of breathing. Received 125 mg of IV Solu-Medrol from EMS as well as a DuoNeb with minimal improvement. She states she has not felt this sick in a long time . ROS: I have performed a ROS with the pertinent positives and negatives documented in the history ofpresent illness. Previous History Past Medical History: Diagnosis Date COPD (chronic obstructive pulmonary disease) (CMS/HCC) DX:COPD (chronic obstructive pulmonary disease) (HCC) Depression 04/24/2017 DX:Depression Dysphagia DX:Dysphagia Esophageal reflux DX:Esophageal reflux Hiatal hernia DX:Hiatal hernia Lung cancer (CMS/HCC) DX:Lung cancer (HCC) Nocturnal hypoxia 04/24/2017 DX:Nocturnal hypoxia Ventral hernia without obstruction or gangrene DX:Ventral hernia without obstruction or gangrene Past Surgical History: Procedure Laterality Date OTHER SURGICAL HISTORY PROCEDURE: WI RMVL LUNG OTH/THN PNUMEC RESXN-PLCTJ EMPHY LUNG OTHER SURGICAL HISTORY Right 06/03/2020 PROCEDURE: WI RESCJ&BRONCHOPLASTY PFRMD TM LOBEC/SGMECTOMY; COMMENT: RUL Wedge w/ completetion RUL lobectomy Social History Tobacco Use Smoking status: Some Days Current packs/day: 0.00 Types: Cigarettes Last attempt to quit: 05/11/2021 Years since quittin.8 Smokeless tobacco: Never Substance Use Topics Alcohol use: No Drug use: No Family History Problem Relation Name Age of Onset Liver disease Mother Liver Cirrosis Throat cancer Father Hypertension Brother Hypertension Daughter Other (Other: other) Daughter Breast Mass has No Known Allergies. No current facility-administered medications on file prior to encounter. Current Outpatient Medications on File Prior to Encounter Medication Sig Dispense Refill atorvastatin (LIPITOR) 20 mg tablet Take 20 mg by mouth daily. evpreonczff-dzylgubchysk-zxqxvvqidm (Trelegy Ellipta) 100-62.5-25 mcg inhaler Inhale into the lungs. meloxicam (MOBIC) 15 mg tablet Take 1 Tablet by mouth daily. nabumetone (RELAFEN) 500 mg tablet Take 1 Tablet by mouth 2 times daily. omeprazole (PriLOSEC) [address] capsule TAKE ONE CAPSULE BY MOUTH EVERY MORNING ON AN EMPTY STOMACH;WAIT 30 MINUTES AND THEN EAT TO ACTIVATE MEDICATION Oxygen Therapy (O2) gas Inhale into the lungs. Oxygen Historical (HISTORICAL OXYGEN) PARoxetine (PAXIL) 40 mg tablet Take 40 mg by mouth every morning. pramipexole (MIRAPEX) 0.25 mg tablet Take 0.25 mg by mouth 3 times daily. Physical Exam ED Triage Vitals [03/24/24 1443] Temp Heart Rate Resp BP 37.3 ??C (99.2 ??F) 102 16 101/73 SpO2 Temp Source Heart Rate Source Patient Position 94 % Oral Left Sitting BP Location FiO2 (%) Left arm -- GENERAL: Nontoxic, slight increased work of breathing. SKIN: Appropriate color for ethnicity, warm, dry. No rashes. HEENT: No stridor, no lymphadenopathy. NECK: Soft, supple, full ROM, Midline structures. CHEST: Heart regular rate and rhythm, no rubs, no gallops or murmurs. PULMONARY: Diffuse wheezes in all lung lane, moving good air, able to speak in full sentences, slight increased work of breathing. ABDOMINAL: Soft, nondistended nontender with positive bowel sounds. No rebound, no guarding. MUSCULOSKELETAL: Normal ton, moves all extremities spontaneously, 5 out of 5 motor, no lower extremity edema or calf tenderness. NEURO: Alert and oriented x3, Cranial nerves II through XII are intact, extraocular motions are intact. PSYCHIATRIC: Normal affect, fluid speech, good eye contact and appropriate demeanor. Results Labs Reviewed BASIC METABOLIC PANEL - Abnormal Result Value Sodium 137 Potassium 3.8 Chloride 108 CO2 27 Anion Gap 2 (*) Glucose 252 (*) BUN 28 (*) Creatinine 0.54 eGFR 100 BUN/Creatinine Ratio 51.9 Calcium 8.8 CBC WITH AUTO DIFFERENTIAL - Abnormal WBC 11.9 (*) RBC 4.50 Hemoglobin 13.6 Hematocrit 42.8 MCV 94.5 MCH 30.0 MCHC 31.8 (*) RDW 12.6 Platelets 428 (*) MPV 8.7 NRBC 0.0 NRBC Absolute 0.00 Neutrophils Relative 81.5 Lymphocytes Relative 10.7 Monocytes Relative 4.7 Eosinophils Relative 0.2 Basophils Relative 0.5 Immature Granulocytes Relative 2.4 Neutrophils Absolute 9.70 (*) Lymphocytes Absolute 1.28 Monocytes Absolute 0.56 Eosinophils Absolute 0.02 Basophils Absolute 0.06 Immature Granulocytes Absolute 0.29 (*) MAGNESIUM - Abnormal Magnesium 1.7 (*) RESPIRATORY VIRUS PANEL MOLECULAR STUDY - Normal Adenovirus Detection by PCR Not Detected Influenza A PCR Not Detected Influenza B PCR Not Detected Coronavirus 229E Not Detected Coronavirus HKU1 Not Detected Coronavirus OC43 Not Detected Coronavirus NL63 Not Detected Parainfluenza Virus 1 Not Detected Parainfluenza Virus 2 Not Detected Parainfluenza Virus 3 Not Detected Parainfluenza Virus 4 Not Detected RSV PCR Not Detected Human Metapneumovirus A and B Not Detected Rhinovirus/Enterovirus Not Detected Bordetella pertussis Not Detected Bordetella parapertussis Not Detected Mycoplasma pneumo by PCR Not Detected Chlamydia pneumoniae Not Detected SARS COV-2 Not Detected Narrative: Testing was performed using the [employer] Respiratory Pathogen PCR Assay. All results must be correlated with the clinical findings. Results should not be used as the sole basis for diagnosis. False Negative results may occur from the presence of sequence variants in the region targeted by the assay or the presence of inhibitors. Results may be affected by concurrent antiviral/antimicrobial therapy or levels of organisms that are below the limit of detection. B-TYPE NATRIURETIC PEPTIDE - Normal BNP 10 TROPONIN I HIGH SENSITIVITY - Normal High Sensitivity Troponin I <3 Narrative: High levels of biotin in samples may falsely decrease hsTroponin values. Use caution when interpreting hsTroponin results in patients taking biotin who exhibit renal impairment (eGFR <60) or in patients taking more than 20 mg/day of biotin. CULTURE BLOOD CULTURE BLOOD CBC AND DIFFERENTIAL Narrative: The following orders were created for panel order CBC and differential. Procedure Abnormality Status --------- ------ CBC auto differential[[id number]] Abnormal Final result Please view results for these tests on the individual orders. TROPONIN I HIGH SENSITIVITY LACTATE, WITH REFLEX Abnormal Labs Reviewed BASIC METABOLIC PANEL - Abnormal; Notable for the following components: Result Value Anion Gap 2 (*) Glucose 252 (*) BUN 28 (*) All other components within normal limits CBC WITH AUTO DIFFERENTIAL - Abnormal; Notable for the following components: WBC 11.9 (*) MCHC 31.8 (*) Platelets 428 (*) Neutrophils Absolute 9.70 (*) Immature Granulocytes Absolute 0.29 (*) All other components within normal limits MAGNESIUM - Abnormal; Notable for the following components: Magnesium 1.7 (*) All other components within normal limits CT Angio Chest wo and/or w Contrast Final Result Impression: No evidence of pulmonary embolism. Multifocal tree-in-bud densities and scattered ground-glass density, nonspecific but compatible with multifocal pneumonia. Follow-up recommended to ensure resolution. Thin-walled cavitary lesion within the right lower lobe. Correlation with any outside imaging. This is a benign/chronic appearance. Mediastinal adenopathy. This document has been electronically signed by: Jhony Arellano MD on 03/24/2024 19:10:20 XR Chest 2 Views Final Result FINDINGS/IMPRESSION: Extensive emphysematous changes with flattening of the diaphragms and postsurgical changes of the right upper lobectomy with overall decreased right thoracic volume and scarring at the base with sutures at the right hilum. There is no consolidation. Partially visualized cervical fusion hardware. Pleural thickening at the right apex. Normal heart size with mildly increased interstitial prominence. Stable degenerative osseous changes.. -------- FINAL REPORT -------- Dictated By: Abiodun Weston Dictated Date: 03/24/2024 16:27 ET Assigned Physician: Abiodun Weston Reviewed and Electronically Signed By: Abiodun Wseton Signed Date: 03/24/2024 16:33 ET Workstation ID: [id number] Transcribed By: Self Edit Transcribed Date: 03/24/2024 16:29 ET I have discussed the incidental/abnormal imaging and/or lab abnormalities with the patient and haveinstructed them the need for further evaluation and workup with their primary care doctor. I have provided the patient with a paper copy of the abnormality. The laboratory results, imaging results and other diagnostic exam results were reviewed in the EMR. EKG Interpretation Normal sinus rhythm 100 bpm, no ST elevations or depressions, QTc of 412. No acute ischemic changesnoted when compared to the previous study from 03 June 2020. Critical Care Time None Differential Diagnosis Pneumonia Influenza COVID-19 Viral syndrome URI Atypical ACS COPD exacerbation PE ? Medical Decision Making Medications doxycycline (VIBRAMYCIN) 100 mg in sodium chloride 0.9 % 100 mL IVPB (has no administration in timerange) cefTRIAXone (ROCEPHIN) 1 g in sterile water 10 mL IV syringe (has no administration in time range) sodium chloride 0.9 % bolus 500 mL (has no administration in time range) albuterol 2.5 mg /3 mL (0.083 %) nebulizer solution 5 mg (5 mg nebulization Given 03/24/24 1529) ipratropium (ATROVENT) 0.02 % nebulizer solution 0.5 mg (0.5 mg nebulization Given 03/24/24 1529) magnesium sulfate 2 gram/50 mL (4 %) IVPB 2 g (0 g intravenous Stopped 03/24/24 180) sodium chloride 0.9 % bolus 500 mL (0 mL intravenous Stopped 03/24/24 192) sodium chloride 0.9 % flush 10 mL (10 mL intravenous Given 03/24/24 183) iopamidoL (ISOVUE-370) 370 mg iodine /mL (76 %) injection 100 mL (90 mL intravenous Given 03/24/241830) ED Course as of 03/24/242006 Sat Mar 24, 2024 1513 Patient was seen and evaluated, she is afebrile, nontoxic-appearing, presenting with 2 weeks of worsening cough and shortness of breath, history of moderate to severe COPD, lung cancer status post RUL lobectomy, received a DuoNeb and 125 mg of Solu-Medrol IV via from EMS with minimal relief. Diffuse wheezing on auscultation though she is moving good air and she is not tachypneic, she is on O2 2 L nasal cannula at nighttime however has been using it daily for her increased shortness of breath. O2 sat at 94% on 2 L via nasal cannula. Will give additional nebulizer treatment, and obtain labworkup, EKG, chest x-ray. [YB] 1715 Patient with magnesium 1.7, glucose 252, will replete magnesium and give gentle IV fluids. HerEKG is nonischemic, viral panel is negative, chest x-ray without acute findings. Leukocytosis to 11.9. BNP of 10. Obtain CT chest angiography to evaluate for PE, worsened malignancy, occult pneumonia. [YB] 1915 CT of the chest shows multifocal pneumonia, cultures and lactic to be obtained, patient given IV antibiotics additional IV fluids and admitted to medical service for multifocal pneumonia with COPD exacerbation. [YB] ED Course User Index [YB] DANIELA Ruffin Clinical Impressions as of 03/24/242006 Shortness of breath Multifocal pneumonia COPD exacerbation ([facility]) Procedures Procedures Diagnosis 1. Multifocal pneumonia 2. Shortness of breath CT Angio Chest wo and/or w Contrast CT Angio Chest wo and/or w Contrast 3. COPD exacerbation (CMS/HCC) Disposition Admit to Inpatient ED Prescriptions None Physician Attestation This is a split/shared visit with Bryce Woods MD. I personally performed the medical decision making (MDM) for the care of this patient on 03/24/24 as documented below 68-year-old female with history of oxygen dependent COPD, lung CA, GERD presents for 2 weeks of worsening cough and shortness of breath. Has been using her oxygen at home more often as it was orderedas needed and at night. She reports fevers. She saw urgent care and was sent to the ED after being found hypotensive. On arrival her vital signs have normalized. She received IV Solu- Medrol and DuoNeb from EMS which only gave minimal improvement. Improving now with higher dose albuterol. Chest x-ray appears to show a right pleural effusion. Patient becomes tachycardic sitting up for me to auscultate her lungs and I anticipate admission. DANIELA Ruffin 03/24/24 8:07 PM EST DANIELA Ruffin PA 03/24/24 1504 Loren Monterroso, DANIELA 03/24/24 1522 DANIELA Ruffin 03/24/24 1730 DANIELA Ruffin 03/24/24 1740 Bryce Woods MD 03/24/24 1743 DANIELA Ruffin 03/24/242006 Cosigned by Bryce Woods MD at 03/25/2024 11:32 PM EST documented in this encounter H&P Notes * Kemi Rivero NP - 03/24/2024 10:26 PM EST Images from the original note were not included. .. [facility] Please contact author [Kemi Rivero NP] via [email or web address]. Patient: Jamila Ramírez Admission Date/Time: 03/24/2024 2:29 PM : 1955 [68 y.o.] Patient's PCP: Donna Romero MD Attending Provider: Josep Ayala MD CHIEF COMPLAINT I just have felt so sick, I'm surprised I don't have something else HISTORY OF PRESENT ILLNESS This is a 68-year-old female with a past medical history significant for severe COPD maintained on nocturnal oxygen via nasal cannula at 2 L, lung cancer status post right upper lobectomy with continued tobacco use/abuse, GERD, hypertension, depression who presents to the emergency department todayfor an evaluation of shortness of breath, cough ongoing for the past 2 weeks. Patient denies sick or potential COVID-19 exposures/contacts. Patient does endorse occasional midsternal chest pain worsewith coughing. She reports a clear to milky white sputum consistency and feels that she has felt feverish intermittently. Chest x-ray:Extensive emphysematous changes with flattening of the diaphragms and postsurgical changes of the right upper lobectomy with overall decreased right thoracic volume and scarring at the base with sutures at the right hilum. There is no consolidation. Partially visualized cervical fusion hardware. Pleural thickening at the right apex. Normal heart size with mildly increased interstitialprominence. Stable degenerative osseous changes.. CT chest angio:No evidence of pulmonary embolism. Multifocal tree-in-bud densities and scattered ground-glass density, nonspecific but compatible with multifocal pneumonia. Follow-up recommended to ensure resolution. Thin-walled cavitary lesion within the right lower lobe. Correlation with any outside imaging. This is a benign/chronic appearance. Mediastinal adenopathy. ECG: NSR Initial laboratory results: Mainly unremarkable BMP with the exception of glucose 252, magnesium 1.7, lactate 0.8-blood cultures obtained and pending, CBC reveals WBCs 11.9, respiratory virus panel negative for infection. In the emergency department the above was performed and patient received 1 g ceftriaxone, 0.5 mg nebulized ipratropium, 2 g magnesium sulfate, 5 mg nebulized albuterol, and a total of 1L NS. The decision was made to admit patient for medical management Review of Systems A complete 10 point review of systems has been performed and if not noted in HPI is otherwise negative. MEDICAL HISTORY Past Medical History Past Medical History: Diagnosis Date COPD (chronic obstructive pulmonary disease) ([facility]) DX:COPD (chronic obstructive pulmonary disease) ([facility]) Depression 04/24/2017 DX:Depression Dysphagia DX:Dysphagia Esophageal reflux DX:Esophageal reflux Hiatal hernia DX:Hiatal hernia Lung cancer (CMS/[facility]) DX:Lung cancer ([facility]) Nocturnal hypoxia 04/24/2017 DX:Nocturnal hypoxia Ventral hernia without obstruction or gangrene DX:Ventral hernia without obstruction or gangrene Past Surgical History Past Surgical History: Procedure Laterality Date OTHER SURGICAL HISTORY PROCEDURE: WI RMVL LUNG OTH/THN PNUMEC RESXN-PLCTJ EMPHY LUNG OTHER SURGICAL HISTORY Right 06/03/2020 PROCEDURE: WI RESCJ&BRONCHOPLASTY PFRMD TM LOBEC/SGMECTOMY; COMMENT: RUL Wedge w/ completetion RUL lobectomy Social History reports that she has been smoking cigarettes. She has never used smokeless tobacco. She reports that she does not drink alcohol and does not use drugs. Family History family history includes Hypertension in her brother and daughter; Liver disease in her mother; Other: other in her daughter; Throat cancer in her father. Allergies has No Known Allergies. Home Medications No current facility-administered medications on file prior to encounter. Current Outpatient Medications on File Prior to Encounter Medication Sig Dispense Refill atorvastatin (LIPITOR) 20 mg tablet Take 20 mg by mouth daily. zxabvgotubg-nwegmaujlswv-caibaiwgxn (Trelegy Ellipta) 100-62.5-25 mcg inhaler Inhale into the lungs. nabumetone (RELAFEN) 500 mg tablet Take 1 Tablet by mouth 2 times daily. omeprazole (PriLOSEC) [address] capsule TAKE ONE CAPSULE BY MOUTH EVERY MORNING ON AN EMPTY STOMACH;WAIT 30 MINUTES AND THEN EAT TO ACTIVATE MEDICATION Oxygen Therapy (O2) gas Inhale into the lungs. Oxygen Historical (HISTORICAL OXYGEN) romosozumab-aqqg (Evenity) Inject 2.34 mL (210 mg total) under the skin every 30 (thirty) days. [DISCONTINUED] meloxicam (MOBIC) 15 mg tablet Take 1 Tablet by mouth daily. [DISCONTINUED] PARoxetine (PAXIL) 40 mg tablet Take 40 mg by mouth every morning. [DISCONTINUED] pramipexole (MIRAPEX) 0.25 mg tablet Take 0.25 mg by mouth 3 times daily. OBJECTIVE Vitals Visit Vitals BP (!) 145/82 (BP Location: Right arm, Patient Position: Lying) Pulse 80 Temp 35.9 ??C (96.6 ??F) (Temporal) Resp 20 Temp (24hrs), Av.7 ??C (98.1 ??F), Min:35.9 ??C (96.6 ??F), Max:37.3 ??C (99.2 ??F) Body mass index is 27.75 kg/m??. No results found for: PTWT , PTHT Physical Examination General: Appears stated age, no respiratory distress, cachectic in appearance, answers questions appropriately, Skin: Clean, dry and intact, no open wounds or sores, bruises or abrasions Cardiac: Regular rate and rhythm, S1-S2 noted, no murmurs, rubs, gallops or clicks, no JVD or interstitial edema, no carotid bruits Respiratory: Faint wheezing noted throughout, speaks in full sentences no obvious nasal flaring or respiratory retractions present Abdomen: Soft, nontender, nondistended, bowel sounds active in all 4 quadrants, no abdominal guarding or Alatorre sign. Extremities: No peripheral or pedal edema noted. No swelling, redness or tenderness noted to bilateral lower legs. Neuro: Alert and oriented x3, no motor or sensory deficits Psychiatric: Calm, cooperative, without agitation or restlessness. ECG: Was ECG Performed? Yes . Sinus Rhythm? Yes. Signs of acute ischemia? LAB RESULTS (most recent) HEMATOLOGY Lab Results Component Value Date WBC 11.9 (H) 03/24/2024 HGB 13.6 03/24/2024 HCT 42.8 03/24/2024 MCV 94.5 03/24/2024 PLT 428 (H) 03/24/2024 CHEMISTRY Lab Results Component Value Date GLUCOSE 252 (H) 03/24/2024 NA 137 03/24/2024 K 3.8 03/24/2024 CO2 27 03/24/2024 CL 108 03/24/2024 BUN 28 (H) 03/24/2024 CREATININE 0.54 03/24/2024 EGFR 100 03/24/2024 CALCIUM 8.8 03/24/2024 MG 1.7 (L) 03/24/2024 ANIONGAP 2 (L) 03/24/[address] Angio Chest wo and/or w Contrast Final Result Impression: No evidence of pulmonary embolism. Multifocal tree-in-bud densities and scattered ground-glass density, nonspecific but compatible with multifocal pneumonia. Follow-up recommended to ensure resolution. Thin-walled cavitary lesion within the right lower lobe. Correlation with any outside imaging. This is a benign/chronic appearance. Mediastinal adenopathy. This document has been electronically signed by: Jhony Arellano MD on 03/24/2024 19:10:20 XR Chest 2 Views Final Result FINDINGS/IMPRESSION: Extensive emphysematous changes with flattening of the diaphragms and postsurgical changes of the right upper lobectomy with overall decreased right thoracic volume and scarring at the base with sutures at the right hilum. There is no consolidation. Partially visualized cervical fusion hardware. Pleural thickening at the right apex. Normal heart size with mildly increased interstitial prominence. Stable degenerative osseous changes.. -------- FINAL REPORT -------- Dictated By: Abiodun Weston Dictated Date: 03/24/2024 16:27 ET Assigned Physician: Abiodun Weston Reviewed and Electronically Signed By: Abiodun Weston Signed Date: 03/24/2024 16:33 ET Workstation ID: [id number] Transcribed By: Self Edit Transcribed Date: 03/24/2024 16:29 ET ASSESSMENT & PLAN ACUTE MEDICAL ISSUES: Acute on chronic respiratory failure with hypoxia COPD exacerbation secondary to multifocal pneumonia - Patient is normally maintained on nocturnal oxygen at 2 L via nasal cannula, she reports for the past 2 weeks she has been pretty much reliant on oxygen throughout the entire day, wean off as able - Chest x-ray:Extensive emphysematous changes with flattening of the diaphragms and postsurgical changes of the right upper lobectomy with overall decreased right thoracic volume and scarring at the base with sutures at the right hilum. There is no consolidation. Partially visualized cervical fusion hardware. Pleural thickening at the right apex. Normal heart size with mildly increased interstitial prominence. Stable degenerative osseous changes.. - CT chest angio:No evidence of pulmonary embolism. Multifocal tree-in-bud densities and scattered ground-glass density, nonspecific but compatible with multifocal pneumonia. Follow-up recommended to ensure resolution. Thin-walled cavitary lesion within the right lower lobe. Correlation with any outside imaging. This is a benign/chronic appearance. Mediastinal adenopathy. - Patient is followed by endoscopy nurse Dr. Flaherty - Albuterol as needed, scheduled DuoNebs, prednisone ordered along with Mucinex, incentive spirometry and flutter valve - Will obtain strep pneumoniae and Legionella, respiratory virus panel is negative sputum culture, CHRONIC MEDICAL ISSUES: Hyperlipidemia - Atorvastatin continued. GERD - Omeprazole converted to pantoprazole. Depression - Denies SI/HI. Relafen currently on hold. Not taking mood stabilizers. Tobacco dependence/abuse Tobacco abuse counseling - Patient reports that open to 2 weeks ago she was still smoking however I have quit since I have not felt good, I am not looking back, I am going to continue to quit, I do not need any patches or gum - 3-10 minutes were spent on smoking cessation, patient is declining NRT. OTHER: DVT Prophylaxis - Lovenox CODE STATUS: Full code HCP/emergency contact is patient's daughter Dayne Dickens [phone] Case and plan discussed with Dr Josep Ayala Please note that 75 minutes or greater was spent on performing a medically appropriate history and physical examination, review of laboratory and radiology data requiring a high level of medical decision making. Cosigned by Josep Ayala MD at 03/27/2024 8:59 AM EST Associated attestation - Josep Ayala MD - 03/27/2024 8:59 AM EST This is a split/shared visit with Kemi Rivero NP. I personally performed the medical decision making (MDM) for the care of this patient on 03/24/2024 as documented below 68 year-old female with history of lung cancer status post right upper lobectomy, nocturnal hypoxemia on 2 L/min O2 at night secondary to COPD, hypertension, GERD, depression, and tobacco dependence presents with an exacerbation of COPD and multifocal pneumonia. After discussion with the ER provider, the patient will be placed in observation. The patient's pneumonia be treated with ceftriaxone and azithromycin. She has a nebulizer treatments and prednisone 40 mg daily for treatment for exacerbation of COPD. Incentive spirometry and OPEP will be encouraged.We will wean oxygen as tolerated. Smoking cessation has been encouraged. Treatment of remaining chronic medical problems as below. Josep Ayala MD 03/27/24 8:55 AM EST documented in this encounter Plan of Treatment Upcoming Encounters Date Type Department Care Team (Late st Contact Info) Description 07/09/2024 10:30 AM EDT Appointment [facility] CT Scan [address] [place] [id number] 07/19/2024 9:00 AM EDT Ancillary Procedure Pulmonolgy - [place] [address] [facility] [address] [place] [phone] Adarsh Henriquez 07/19/2024 10:00 AM EDT [facility] [address] [facility] [address] [place] [phone] Ana Flaherty MD [address] [facility] [address] [place] [address] documented as of this encounter Procedures Procedure Name Priority Date/Time Associated Diagnosis Comments ECG OUTSIDE 03/26/2024 ECG ANNOTATED 03/26/2024 CULTURE SPUTUM STAT 03/25/2024 8:26 AM EST STREPTOCOCCUS PNEUMONIAE ANTIBODIES, IGG, 23 SEROTYPES Routine 03/25/2024 6:02 AM EST CBC WITH AUTO DIFFERENTIAL Routine 03/25/2024 6:02 AM EST CBC AND DIFFERENTIAL Routine 03/25/2024 6:02 AM EST BASIC METABOLIC PANEL Routine 03/25/2024 6:02 AM EST URINALYSIS WITH REFLEX MICROSCOPIC AND CULTURE STAT 03/24/2024 11:09 PM EST RADER URINE CULTURE TUBE STAT 03/24/2024 11:09 PM EST LEGIONELLA ANTIGEN URINE, EIA STAT 03/24/2024 11:09 PM EST URINALYSIS WITH REFLEX MICROSCOPIC AND CULTURE STAT 03/24/2024 11:09 PM EST PEP THERAPY Routine 03/24/2024 10:16 PM EST PEP THERAPY Routine 03/24/2024 10:10 PM EST OXYGEN THERAPY, ADULT Routine 03/24/2024 8:51 PM EST OXYGEN THERAPY, ADULT Routine 03/24/2024 8:51 PM EST LACTATE, WITH REFLEX STAT 03/24/2024 8:23 PM EST CULTURE BLOOD STAT 03/24/2024 8:23 PM EST CULTURE BLOOD STAT 03/24/2024 8:23 PM EST TROPONIN I HIGH SENSITIVITY STAT 03/24/2024 7:[address] ANGIO CHEST WO AND/OR W CONTRAST STAT 03/24/2024 6:35 PM EST Shortness of breath XR CHEST 2 VIEWS STAT 03/24/2024 4:18 PM EST RESPIRATORY VIRUS PANEL MOLECULAR STUDY STAT 03/24/2024 4:05 PM EST TROPONIN I HIGH SENSITIVITY STAT 03/24/2024 4:05 PM EST PROCALCITONIN STAT Add-on 03/24/2024 4:05 PM EST CBC WITH AUTO DIFFERENTIAL STAT 03/24/2024 4:05 PM EST CBC AND DIFFERENTIAL STAT 03/24/2024 4:05 PM EST B-TYPE NATRIURETIC PEPTIDE STAT 03/24/2024 4:05 PM EST MAGNESIUM STAT 03/24/2024 4:05 PM EST BASIC METABOLIC PANEL STAT 03/24/2024 4:05 PM EST ECG 12-LEAD STAT 03/24/2024 3:56 PM EST documented in this encounter Results * ECG-Annotated (03/26/2024) Provider Onbase MD ECG ORDERABLES Final Result * ECG-Outside (03/26/2024) Provider Onbase MD ECG ORDERABLES Final Result * (ABNORMAL) Culture sputum (03/25/2024 8:26 AM EST) Culture, Sputum No pathogens isolated. 03/29/2024 9:41 AM EST [facility] Gram Stain Result >25 WBCs, 10-25 Epithelials - Acceptable for Culture(A) 03/29/2024 9:41 AM [facility] Gram Stain Result Many Polymorphonuclear leukocytes(A) 03/29/2024 9:41 AM [facility] Gram Stain Result Moderate Epithelial cells(A) 03/29/2024 9:41 AM [facility] Gram Stain Result Moderate Gram positive bacilli(A) 03/29/2024 9:41 AM [facility] Gram Stain Result Moderate Gram positive cocci in pairs and chains(A) 03/29/2024 9:41 AM [facility] Gram Stain Result Few Gram negative bacilli(A) 03/29/2024 9:41 AM [facility] Sputum, expectorated Oropharyngeal structure / Unknown 03/25/2024 8:26 AM EST 03/25/2024 8:39 AM EST Kemi Rivero NP LAB MICROBIOLOGY - GENER AL ORDERABLES Final Result [facility] [address] [place] [address], * (ABNORMAL) CBC auto differential (03/25/2024 6:02 AM EST) [facility] WBC 11.5(H) 4.8 - 10.8 K/mcL LAB HEMETOLOGY METHOD 03/25/2024 6:50 AM [facility] RBC 4.00 3.80 - 4.80 M/mcL LAB HEMETOLOGY METHOD 03/25/2024 6:50 AM [facility] Hemoglobin 12.2 11.5 - 16.0 g/dL LAB HEMETOLOGY METHOD 03/25/2024 6:50 AM [facility] Hematocrit 37.9 35.0 - 47.0 % LAB HEMETOLOGY METHOD 03/25/2024 6:50 AM [facility] MCV 94.8 79.0 - 98.0 FL LAB HEMETOLOGY METHOD 03/25/2024 6:50 AM [facility] MCH 30.5 27.0 - 32.0 pcg LAB HEMETOLOGY METHOD 03/25/2024 6:50 AM [facility] MCHC 32.2 32.0 - 37.0 g/dL LAB HEMETOLOGY METHOD 03/25/2024 6:50 AM [facility] RDW 12.7 11.0 - 15.0 % LAB HEMETOLOGY METHOD 03/25/2024 6:50 AM [facility] Platelets 380 130 - 400 K/mcL LAB HEMETOLOGY METHOD 03/25/2024 6:50 AM [facility] MPV 9.3 7.0 - 11.0 FL LAB HEMETOLOGY METHOD 03/25/2024 6:50 AM [facility] NRBC 0.0 <1.0 % LAB HEMETOLOGY METHOD 03/25/2024 6:50 AM [facility] NRBC Absolute 0.00 <0.10 K/mcL LAB HEMETOLOGY METHOD 03/25/2024 6:50 AM [facility] Neutrophils Relative 82.9 % LAB HEMETOLOGY METHOD 03/25/2024 6:50 AM [facility] Lymphocytes Relative 10.1 % LAB HEMETOLOGY METHOD 03/25/2024 6:50 AM [facility] Monocytes Relative 3.1 % LAB HEMETOLOGY METHOD 03/25/2024 6:50 AM [facility] Eosinophils Relative 0.0 % LAB HEMETOLOGY METHOD 03/25/2024 6:50 AM [facility] Basophils Relative 0.3 % LAB HEMETOLOGY METHOD 03/25/2024 6:50 AM [facility] Immature Granulocytes Relative 3.6 % LAB HEMETOLOGY METHOD 03/25/2024 6:50 AM [facility] Neutrophils Absolute 9.55(H) 1.50 - 7.00 K/mcL LAB HEMETOLOGY METHOD 03/25/2024 6:50 AM [facility] Lymphocytes Absolute 1.16 1.00 - 5.00 K/mcL LAB HEMETOLOGY METHOD 03/25/2024 6:50 AM [facility] Monocytes Absolute 0.36 0.20 - 1.00 K/mcL LAB HEMETOLOGY METHOD 03/25/2024 6:50 AM [facility] Eosinophils Absolute 0.00 0.00 - 0.50 K/mcL LAB HEMETOLOGY METHOD 03/25/2024 6:50 AM [facility] Basophils Absolute 0.03 0.00 - 0.20 K/mcL LAB HEMETOLOGY METHOD 03/25/2024 6:50 AM [facility] Immature Granulocytes Absolute 0.41(H) 0.00 - 0.03 K/mcL LAB HEMETOLOGY METHOD 03/25/2024 6:50 AM [facility] Blood Venous blood specimen / Unknown Venipuncture / Unknown 03/25/2024 6:02 AM EST 03/25/2024 6:34 AM EST us Josep Ayala MD LAB BLOOD ORDERABLES Final Result [facility] [address] [place] [address], * Streptococcus pneumoniae antibodies, IgG, 23 serotypes (03/25/2024 6:02 AM EST) [facility] Signature Serotype 1 (1) 0.6 >=1.0 mcg/mL 04/02/2024 11:45 AM EST [facility] Serotype 2 (2) 3.6 >=1.0 mcg/mL 04/02/2024 11:45 AM EST [facility] Serotype 3 (3) 0.8 >=1.0 mcg/mL 04/02/2024 11:45 AM EST [facility] Serotype 4 (4) 0.7 >=1.0 mcg/mL 04/02/2024 11:45 AM EST [facility] Serotype 5 (5) 2.1 >=1.0 mcg/mL 04/02/2024 11:45 AM EST [facility] Serotype 8 (8) 2.9 >=1.0 mcg/mL 04/02/2024 11:45 AM EST [facility] Serotype 9 (9N) 7.9 >=1.0 mcg/mL 04/02/2024 11:45 AM EST [facility] Serotype 12F (12) 1.2 >=1.0 mcg/mL 04/02/2024 11:45 AM EST [facility] Serotype 14 (14) 21.4 >=1.0 mcg/mL 04/02/2024 11:45 AM EST [facility] Serotype 17 (17F) 2.2 >=1.0 mcg/mL 04/02/2024 11:45 AM EST [facility] Serotype 19 (19F) 7.7 >=1.0 mcg/mL 04/02/2024 11:45 AM EST [facility] Serotype 20 (20) 9.3 >=1.0 mcg/mL 04/02/2024 11:45 AM EST [facility] Serotype 22F (22) 3.5 >=1.0 mcg/mL 04/02/2024 11:45 AM EST [facility] Serotype 23 (23F) 5.1 >=1.0 mcg/mL 04/02/2024 11:45 AM EST [facility] Serotype 6B 1.2 >=1.0 mcg/mL 04/02/2024 11:45 AM EST [facility] Serotype 10A 3.4 >=1.0 mcg/mL 04/02/2024 11:45 AM EST [facility] Serotype 11A 2.0 >=1.0 mcg/mL 04/02/2024 11:45 AM EST [facility] Serotype 7F 2.6 >=1.0 mcg/mL 04/02/2024 11:45 AM EST [facility] Serotype 15B 9.4 >=1.0 mcg/mL 04/02/2024 11:45 AM EST [facility] Serotype 18C 1.0 >=1.0 mcg/mL 04/02/2024 11:45 AM EST [facility] Serotype 19A SEE BELOW >=1.0 mcg/mL 04/02/2024 11:45 AM EST [facility] Comment:RESULT: Unable to pe rform test due to a reagent issue. Serotype 9V 3.5 >=1.0 mcg/mL 04/02/2024 11:45 AM EST [facility] Serotype 33F 12.9 >=1.0 mcg/mL 04/02/2024 11:45 AM EST [facility] Interpretation SEE BELOW 04/02/2024 11:45 AM EST [facility] Comment: Overall interpretation of pneumococcal antibody serology panel can be based on the reported 22 serotypes. Evaluation of the immune response following pneumococcal vaccination can be assessed by measuring serotype-specific Streptococcus pneumonia IgG antibodies. Either of the following conditions is consistent with a normal response to Streptococcus pneumonia vaccination: 1. When comparing pre and post-vaccination samples, antibody concentrations increased by at least 2-fold for either >50% of serotypes in children <6 years of age or >70% of serotypes for individuals >6 years of age. 2. In either a pre- or post-vaccination sample, antibody concentrations >=1.0 mcg/mL for either >50% of serotypes for children <6 years of age or >70% of serotypes for individuals >6 years of age. Results >=1.0 mcg/mL or those showing a >=2-fold change are consistent with an immune response, but are not necessarily sufficient to provide protection against infection. ADDITIONAL INFORMATION This test was developed and its performance characteristics determined by [facility] in a manner consistent with CLIA requirements. This test has not been cleared or approved by the U.S. Food and Drug Administration. Test Performed by: [facility] [address] [place] [address] Manager Part: Erin Nicole Ph.D.; CLIA# [id number] Blood Venous blood specimen / Unknown Venipuncture / Unknown 03/25/2024 6:02 AM EST 03/25/2024 6:33 AM EST Kemi Rivero NP LAB BLOOD ORDERABLES [facility] al Result [facility] [address] [address] * (ABNORMAL) Basic metabolic panel (03/25/2024 6:02 AM EST) Sodium 144 133 - 145 mmol/L LAB CHEMISTRY METHOD 03/25/2024 7:13 AM [facility] Potassium 4.3 3.5 - 5.5 mmol/L LAB CHEMISTRY METHOD 03/25/2024 7:13 AM [facility] Chloride 113(H) 96 - 110 mmol/L LAB CHEMISTRY METHOD 03/25/2024 7:13 AM [facility] CO2 27 21 - 32 mmol/L LAB CHEMISTRY METHOD 03/25/2024 7:13 AM [facility] Anion Gap 4 3 - 11 LAB CHEMISTRY METHOD 03/25/2024 7:13 AM [facility] Glucose 128(H) 70 - 100 mg/dL LAB CHEMISTRY METHOD 03/25/2024 7:13 AM [facility] BUN 18 5 - 25 mg/dL LAB CHEMISTRY METHOD 03/25/2024 7:13 AM [facility] Creatinine 0.47(L) 0.50 - 1.10 mg/dL LAB CHEMISTRY METHOD 03/25/2024 7:13 AM [facility] eGFR 103 >=60 mL/min/1. 73m2 LAB CHEMISTRY METHOD 03/25/2024 7:13 AM [facility] Comment:Calculation based on the??Chronic Kidney Disease Epidemiology Collaboration (CKD-EPI) equation refit??without adjustment for race. BUN/Creatinine Ratio 38.3 LAB CHEMISTRY METHOD 03/25/2024 7:13 AM [facility] Calcium 7.9(L) 8.5 - 10.5 mg/dL LAB CHEMISTRY METHOD 03/25/2024 7:13 AM [facility] Blood Venous blood specimen / Unknown Venipuncture / Unknown 03/25/2024 6:02 AM EST 03/25/2024 6:33 AM EST us Josep Ayala MD LAB BLOOD ORDERABLES Final Result Performing Organization Address [facility]/ZIP Co de Phone Number [facility] [address] [place] [address], [place] [phone] * Rader urine culture tube (03/24/2024 11:09 PM EST) Extra Tube Hold for add-ons. 03/25/2024 1:02 AM [facility] Comment:Auto resulted. Urine Urine specimen obtained by clean catch procedure / Unknown Non-blood Collection / Unknown 03/24/2024 11:09 PM EST 03/24/2024 11:49 PM EST us Kemi Rivero NP LAB URINE ORDERABLES Fin al Result [facility] [address] [place] [address], [place] [phone] * (ABNORMAL) Urinalysis with reflex microscopic and culture (03/24/2024 11:09 PM EST) Specific [place] Urine >1.045(H) 1.003 - 1.030 LAB URINALYSIS - AUTOMATED METHOD 03/24/2024 11:56 PM [facility] pH, Urine 5.5 5.0 - 8.0 pH LAB URINALYSIS - AUTOMATED METHOD 03/24/2024 11:56 PM [facility] Leukocytes, Urine Negative Negative LAB URINALYSIS - AUTOMATED METHOD 03/24/2024 11:56 PM [facility] Nitrite, Urine Negative Negative LAB URINALYSIS - AUTOMATED METHOD 03/24/2024 11:56 PM [facility] Protein, Urine Trace <=Trace mg/dL LAB URINALYSIS - AUTOMATED METHOD 03/24/2024 11:56 PM [facility] Glucose, Urine >=1000(A) Negative mg/dL LAB URINALYSIS - AUTOMATED METHOD 03/24/2024 11:56 PM [facility] Ketones, Urine Negative Negative mg/dL LAB URINALYSIS - AUTOMATED METHOD 03/24/2024 11:56 PM [facility] Urobilinogen , Urine 1.0 0.2 - 1.0 mg/dL LAB URINALYSIS - AUTOMATED METHOD 03/24/2024 11:56 PM [facility] Bilirubin, Urine Negative Negative LAB URINALYSIS - AUTOMATED METHOD 03/24/2024 11:56 PM [facility] Blood, Urine Negative Negative LAB URINALYSIS - AUTOMATED METHOD 03/24/2024 11:56 PM [facility] Urine Urine specimen obtained by clean catch procedure / Unknown Non-blood Collection / Unknown 03/24/2024 11:09 PM EST 03/24/2024 11:49 PM EST Kemi Rivero [employer] LAB URINE ORDERABLES Fin al Result Performing Organization Address [facility]/ZIP Co de Phone Number [facility] [address] [place] [address], [place] [phone] * Legionella antigen urine, EIA (03/24/2024 11:09 PM EST) Legionella Antigen, Ur Negative Negative 03/25/2024 12:53 AM EST [facility] Urine Urine specimen from urethra / Unknown Non-blood Collection / Unknown 03/24/2024 11:09 PM EST 03/24/2024 11:49 PM EST Narrative [facility] - 03/25/2024 12:53 AM EST Negative for Legionella pneumophilia serogroup 1 antigen. This presumptive result suggests no current or recent infection due to L. pneumophilia serogroup 1. Culture is recommended if Legionella infection is till suspected, as other serogroups and species of Legionella are not detected by this test. Kemi Rivero [employer] LAB URINE ORDERABLES Fin al Result Performing Organization Address [facility] de Phone Number [facility] [address] [place] [address], [place] [phone] * Lactate, with Reflex (03/24/2024 8:23 PM EST) LACTIC ACID 0.8 0.4 - 2.0 mmol/L LAB CHEMISTRY METHOD 03/24/2024 9:05 PM EST [facility] Blood Venous blood specimen / Unknown Venipuncture / Unknown 03/24/2024 8:23 PM EST 03/24/2024 8:28 PM EST Loren SUAREZ LAB BLOOD ORDERABLES Final Resul t Performing Organization Address [facility]/ZIP Co de Phone Number [facility] [address] [place] [address], [place] [phone] * Blood Culture, Peripheral #2 (03/24/2024 8:23 PM EST) Culture, Blood No growth at 5 days LAB MICROBIOLOGY METHOD 03/29/2024 9:01 PM EST [facility] Blood Venous blood specimen / Unknown Venipuncture / Unknown 03/24/2024 8:23 PM EST 03/24/2024 8:28 PM EST [facility] LAB MICROBIOLOGY - GENERAL ORDER ERAN Final Result [facility] [address] [place] [address], * Blood Culture, Peripheral #1 (03/24/2024 8:23 PM EST) Culture, Blood No growth at 5 days LAB MICROBIOLOGY METHOD 03/29/2024 9:01 PM EST [facility] Blood Venous blood specimen / Unknown Venipuncture / Unknown 03/24/2024 8:23 PM EST 03/24/2024 8:28 PM EST [facility] LAB MICROBIOLOGY - GENERAL ORDER ERAN Final Result [facility] [address] [place] [address], * Troponin I high sensitivity (03/24/2024 7:11 PM EST) High Sensitivity Troponin I <3 <=54 ng/L LAB CHEMISTRY METHOD 03/24/2024 8:13 PM EST [facility] Blood Venous blood specimen / Unknown Venipuncture / Unknown 03/24/2024 7:11 PM EST 03/24/2024 7:45 PM EST Narrative [facility] - 03/24/2024 8:13 PM EST High levels of biotin in samples may falsely decrease hsTroponin values. ??Use caution when interpreting hsTroponin results in patients taking biotin who exhibit renal impairment (eGFR <60) or in patients taking more than 20 mg/day of biotin. us Loren Monterroso DANIELA LAB BLOOD ORDERABLES Final Resul t [facility] ([facility]) [facility] [address] [place] [address], * CT Angio Chest wo and/or w Contrast (03/24/2024 6:35 PM EST) Anatomical Region Laterality Modality Body Computed Tomogra phy 03/24/2024 7:10 PM EST Impressions 03/24/2024 7:10 PM EST Impression: No evidence of pulmonary embolism. Multifocal tree-in-bud densities and scattered ground-glass density, nonspecific but compatible with multifocal pneumonia. Follow-up recommended to ensure resolution. Thin-walled cavitary lesion within the right lower lobe. Correlation with any outside imaging. This is a benign/chronic appearance. Mediastinal adenopathy. This document has been electronically signed by: Jhony Arellano MD on 03/24/2024 19:10:20 Narrative 03/24/2024 7:10 PM EST INDICATION: SOB, Chest pain, evaluate for PE CT angiography chest with contrast. 3D Postprocessing. Comparison: None Findings: Cardiac size is within normal limits. Anterior mediastinal fluid, likely postsurgical/chronic. Adenopathy is present within the mediastinum. Moderate hiatal hernia noted. Moderate atherosclerotic disease of the coronary arteries. No filling defect noted within the pulmonary arteries to suggest pulmonary embolism. Postsurgical changes of right upper lobectomy. Lungs exhibit diffuse airway thickening and prominent tree-in-bud densities at both lung bases. Thin walled cavitary lesion within the right lower lobe, measuring up to 2.8 cm. Scattered ground-glass density noted bilaterally, for example subpleural left lower lobe on axial 116 and left upper lobe, axial 374. No effusion. No pneumothorax. The visualized upper abdomen is unremarkable. Procedure Note Jhony Arellano MD - 03/24/2024 INDICATION: SOB, Chest pain, evaluate for PE CT angiography chest with contrast. 3D Postprocessing. Comparison: None Findings: Cardiac size is within normal limits. Anterior mediastinal fluid, likely postsurgical/chronic. Adenopathy is present within the mediastinum. Moderate hiatal hernia noted. Moderate atherosclerotic disease of the coronary arteries. No filling defect noted within the pulmonary arteries to suggestpulmonary embolism. Postsurgical changes of right upper lobectomy. Lungs exhibit diffuse airway thickening and prominent tree-in-bud densities at both lung bases. Thin walled cavitary lesion within the right lower lobe, measuring up to 2.8 cm. Scattered ground-glass density noted bilaterally, for example subpleural left lower lobe on axial 116 and left upper lobe, axial 374. No effusion. No pneumothorax. The visualized upper abdomen is unremarkable. IMPRESSION: Impression: No evidence of pulmonary embolism. Multifocal tree-in-bud densities and scattered ground-glass density, nonspecific but compatible with multifocal pneumonia. Follow-up recommended to ensure resolution. Thin-walled cavitary lesion within the right lower lobe. Correlationwith any outside imaging. This is a benign/chronic appearance. Mediastinal adenopathy. This document has been electronically signed by: Jhony Arellano MD on 03/24/2024 19:10:[address] PROCEDURES Final Result * XR Chest 2 Views (03/24/2024 4:18 PM EST) Anatomical Region Laterality Modality Body Radiographic Lesley ging 03/24/2024 4:27 PM EST Impressions 03/24/2024 4:33 PM EST FINDINGS/IMPRESSION: Extensive emphysematous changes with flattening of the diaphragms and postsurgical changes of the right upper lobectomy with overall decreased right thoracic volume and scarring at the base with sutures at the right hilum. ??There is no consolidation. ??Partially visualized cervical fusion hardware. ??Pleural thickening at the right apex. ??Normal heart size with mildly increased interstitial prominence. ??Stable degenerative osseous changes.. -------- FINAL REPORT -------- Dictated By: Abiodun Weston Dictated Date: 03/24/2024 16:27 ET Assigned Physician: Abiodun Weston Reviewed and Electronically Signed By: Abiodun Weston Signed Date: 03/24/2024 16:33 ET Workstation ID: [id number] Transcribed By: Self Edit Transcribed Date: 03/24/2024 16:29 ET Narrative 03/24/2024 4:33 PM EST XR CHEST 2 VIEWS INDICATION: dyspnea TECHNIQUE: XR CHEST 2 VIEWS COMPARISON: No priors available. Procedure Note Abiodun Weston MD - 03/24/2024 XR CHEST 2 VIEWS INDICATION: dyspnea TECHNIQUE: XR CHEST 2 VIEWS COMPARISON: No priors available. IMPRESSION: FINDINGS/IMPRESSION: Extensive emphysematous changes with flattening ofthe diaphragms and postsurgical changes of the right upper lobectomy withoverall decreased right thoracic volume and scarring at the base withsutures at the right hilum. There is no consolidation. Partiallyvisualized cervical fusion hardware. Pleural thickening at the rightapex. Normal heart size with mildly increased interstitial prominence.Stable degenerative osseous changes.. -------- FINAL REPORT -------- Dictated By: Abiodun Weston Dictated Date: 03/24/2024 16:27 ET Assigned Physician: Abiodun Weston Reviewed and Electronically Signed By: Abiodun Weston Signed Date: 03/24/2024 16:33 ET Workstation ID: [id number] Transcribed By: Self Edit Transcribed Date: 03/24/2024 16:29 ET Taina SUAREZ IMG XR PROCEDURES Elsa l Result * Procalcitonin (03/24/2024 4:05 PM EST) Procalcitonin 0.04 <=0.16 ng/mL LAB CHEMISTRY METHOD 03/25/2024 8:18 AM EST [facility] Blood Venous blood specimen / Unknown Venipuncture / Unknown 03/24/2024 4:05 PM EST 03/24/2024 4:12 PM EST Narrative [facility] - 03/25/2024 8:18 AM EST Procalcitonin > 2.00 ng/ml: Procalcitonin Levels above 2.00 ng/ml, on the first day of ICU admission represent a high risk for progression to severe sepsis and/or septic shock. Procalcitonin < 0.50 ng/ml: Procalcitonin levels below 0.50 ng/ml on the first day of ICU admission represent a low risk for progression to severe sepsis and/or septic shock. Concentrations <0.5 ng/mL do not exclude an infection, on account of local ized infections (without systemic signs) which can be associated with such low concentrations, or a systemic infection in its initial stages (<6 hours). Furthermore, increased procalcitonin can occur without infection. PCT concentrations between 0.5 and 2.0 ng/mL should be interpreted taking into account the patient's history. It is recommended to retest PCT within 6-24 hours if any concentrations <2.0 ng/mL are obtained. us Josep Ayala MD LAB BLOOD ORDERABLES Final Result [facility] [address] [place] [address], * Respiratory virus panel molecular study (03/24/2024 4:05 PM EST) Adenovirus Detection by PCR Not Detected Not Detected LAB MICROBIOLOGY METHOD 03/24/2024 5:08 PM EST [facility] Influenza A PCR Not Detected Not Detected LAB MICROBIOLOGY METHOD 03/24/2024 5:08 PM EST [facility] Influenza B PCR Not Detected Not Detected LAB MICROBIOLOGY METHOD 03/24/2024 5:08 PM EST [facility] Coronavirus 229E Not Detected Not Detected LAB MICROBIOLOGY METHOD 03/24/2024 5:08 PM EST [facility] Coronavirus HKU1 Not Detected Not Detected LAB MICROBIOLOGY METHOD 03/24/2024 5:08 PM EST [facility] Coronavirus OC43 Not Detected Not Detected LAB MICROBIOLOGY METHOD 03/24/2024 5:08 PM EST [facility] Coronavirus NL63 Not Detected Not Detected LAB MICROBIOLOGY METHOD 03/24/2024 5:08 PM EST [facility] Parainfluenza Virus 1 Not Detected Not Detected LAB MICROBIOLOGY METHOD 03/24/2024 5:08 PM [facility] Parainfluenza Virus 2 Not Detected Not Detected LAB MICROBIOLOGY METHOD 03/24/2024 5:08 PM [facility] Parainfluenza Virus 3 Not Detected Not Detected LAB MICROBIOLOGY METHOD 03/24/2024 5:08 PM [facility] Parainfluenza Virus 4 Not Detected Not Detected LAB MICROBIOLOGY METHOD 03/24/2024 5:08 PM [facility] RSV PCR Not Detected Not Detected LAB MICROBIOLOGY METHOD 03/24/2024 5:08 PM [facility] Human Metapneumovirus A and B Not Detected Not Detected LAB MICROBIOLOGY METHOD 03/24/2024 5:08 PM [facility] Rhinovirus/Entero virus Not Detected Not Detected LAB MICROBIOLOGY METHOD 03/24/2024 5:08 PM [facility] Bordetella pertussis Not Detected Not Detected LAB MICROBIOLOGY METHOD 03/24/2024 5:08 PM [facility] Bordetella parapertussis Not Detected Not Detected LAB MICROBIOLOGY METHOD 03/24/2024 5:08 PM [facility] Mycoplasma pneumo by PCR Not Detected Not Detected LAB MICROBIOLOGY METHOD 03/24/2024 5:08 PM [facility] Chlamydia pneumoniae Not Detected Not Detected LAB MICROBIOLOGY METHOD 03/24/2024 5:08 PM [facility] SARS COV-2 Not Detected Not Detected LAB MICROBIOLOGY METHOD 03/24/2024 5:08 PM [facility] Swab Both anterior nares / Unknown Non-blood Collection / Unknown 03/24/2024 4:05 PM EST 03/24/2024 4:15 PM EST [facility] - 03/24/2024 5:08 PM EST Testing was performed using the [employer] Respiratory Pathogen PCR Assay. All results must be correlated with the clinical findings. Results should not be used as the sole basis for diagnosis. False Negative results may occur from the presence of sequence variants in the region targeted by the assay or the presence of inhibitors. Results may be affected by concurrent antiviral/antimicrobial therapy or levels of organisms that are below the limit of detection. [facility] LAB MICROBIOLOGY - GENERAL ORDER ERAN Final Result Performing Organization Address [facility]/ZIP Co de Phone Number [facility] [address] [place] [address], [place] [phone] * (ABNORMAL) Magnesium (03/24/2024 4:05 PM EST) [facility] Magnesium 1.7(L) 1.9 - 2.6 mg/dL LAB CHEMISTRY METHOD 03/24/2024 4:39 PM EST [facility] Blood Venous blood specimen / Unknown Venipuncture / Unknown 03/24/2024 4:05 PM EST 03/24/2024 4:12 PM EST [facility] LAB BLOOD ORDERABLES Final Resul t Performing Organization Address [facility] de Phone Number [facility] [address] [place] [address], [place] [phone] * Troponin I high sensitivity (03/24/2024 4:05 PM EST) [facility] High Sensitivity Troponin I <3 <=54 ng/L LAB CHEMISTRY METHOD 03/24/2024 4:43 PM EST [facility] Blood Venous blood specimen / Unknown Venipuncture / Unknown 03/24/2024 4:05 PM EST 03/24/2024 4:12 PM EST Narrative [facility] - 03/24/2024 4:43 PM EST High levels of biotin in samples may falsely decrease hsTroponin values. ??Use caution when interpreting hsTroponin results in patients taking biotin who exhibit renal impairment (eGFR <60) or in patients taking more than 20 mg/day of biotin. [facility] LAB BLOOD ORDERABLES Final Resul t Performing Organization Address City/[facility]/ZIP Co de Phone Number [facility] [address] [place] [address], [place] [phone] * B-type natriuretic peptide (03/24/2024 4:05 PM EST) BNP 10 <=100 pcg/mL LAB CHEMISTRY METHOD 03/24/2024 4:57 PM [facility] Blood Venous blood specimen / Unknown Venipuncture / Unknown 03/24/2024 4:05 PM EST 03/24/2024 4:12 PM EST [facility] LAB BLOOD ORDERABLES Final Resul t Performing Organization Address [facility] de Phone Number [facility] [address] [place] [address], [place] [phone] * (ABNORMAL) CBC auto differential (03/24/2024 4:05 PM EST) Pathologist [facility] WBC 11.9(H) 4.8 - 10.8 K/mcL LAB HEMETOLOGY METHOD 03/24/2024 4:21 PM [facility] RBC 4.50 3.80 - 4.80 M/mcL LAB HEMETOLOGY METHOD 03/24/2024 4:21 PM [facility] Hemoglobin 13.6 11.5 - 16.0 g/dL LAB HEMETOLOGY METHOD 03/24/2024 4:21 PM [facility] Hematocrit 42.8 35.0 - 47.0 % LAB HEMETOLOGY METHOD 03/24/2024 4:21 PM [facility] MCV 94.5 79.0 - 98.0 FL LAB HEMETOLOGY METHOD 03/24/2024 4:21 PM [facility] MCH 30.0 27.0 - 32.0 pcg LAB HEMETOLOGY METHOD 03/24/2024 4:21 PM [facility] MCHC 31.8(L) 32.0 - 37.0 g/dL LAB HEMETOLOGY METHOD 03/24/2024 4:21 PM [facility] RDW 12.6 11.0 - 15.0 % LAB HEMETOLOGY METHOD 03/24/2024 4:21 PM [facility] Platelets 428(H) 130 - 400 K/mcL LAB HEMETOLOGY METHOD 03/24/2024 4:21 PM [facility] MPV 8.7 7.0 - 11.0 FL LAB HEMETOLOGY METHOD 03/24/2024 4:21 PM [facility] NRBC 0.0 <1.0 % LAB HEMETOLOGY METHOD 03/24/2024 4:21 PM [facility] NRBC Absolute 0.00 <0.10 K/mcL LAB HEMETOLOGY METHOD 03/24/2024 4:21 PM [facility] Neutrophils Relative 81.5 % LAB HEMETOLOGY METHOD 03/24/2024 4:21 PM [facility] Lymphocytes Relative 10.7 % LAB HEMETOLOGY METHOD 03/24/2024 4:21 PM [facility] Monocytes Relative 4.7 % LAB HEMETOLOGY METHOD 03/24/2024 4:21 PM [facility] Eosinophils Relative 0.2 % LAB HEMETOLOGY METHOD 03/24/2024 4:21 PM [facility] Basophils Relative 0.5 % LAB HEMETOLOGY METHOD 03/24/2024 4:21 PM [facility] Immature Granulocytes Relative 2.4 % LAB HEMETOLOGY METHOD 03/24/2024 4:21 PM [facility] Neutrophils Absolute 9.70(H) 1.50 - 7.00 K/mcL LAB HEMETOLOGY METHOD 03/24/2024 4:21 PM EST [facility] Lymphocytes Absolute 1.28 1.00 - 5.00 K/mcL LAB HEMETOLOGY METHOD 03/24/2024 4:21 PM [facility] Monocytes Absolute 0.56 0.20 - 1.00 K/mcL LAB HEMETOLOGY METHOD 03/24/2024 4:21 PM [facility] [facility] Eosinophils Absolute 0.02 0.00 - 0.50 [facility] HEMETOLOGY METHOD 03/24/2024 4:21 PM [facility] Basophils Absolute 0.06 0.00 - 0.20 [facility] LAB HEMETOLOGY METHOD 03/24/2024 4:21 PM [facility] Immature Granulocytes Absolute 0.29(H) 0.00 - 0.03 [facility] HEMETOLOGY METHOD 03/24/2024 4:21 PM [facility] Blood Venous blood specimen / Unknown Venipuncture / Unknown 03/24/2024 4:05 PM EST 03/24/2024 4:12 PM EST Taina SUAREZ LAB BLOOD ORDERABLES F inal Result [facility] [address] [place] [address], * (ABNORMAL) Basic metabolic panel (03/24/2024 4:05 PM EST) Sodium 137 133 - 145 mmol/L LAB CHEMISTRY METHOD 03/24/2024 4:49 PM [facility] Potassium 3.8 3.5 - 5.5 mmol/L LAB CHEMISTRY METHOD 03/24/2024 4:49 PM [facility] Chloride 108 96 - 110 mmol/L LAB CHEMISTRY METHOD 03/24/2024 4:49 PM [facility] CO2 27 21 - 32 mmol/L LAB CHEMISTRY METHOD 03/24/2024 4:49 PM [facility] Anion Gap 2(L) 3 - 11 LAB CHEMISTRY METHOD 03/24/2024 4:49 PM [facility] Glucose 252(H) 70 - 100 mg/dL LAB CHEMISTRY METHOD 03/24/2024 4:49 PM [facility] BUN 28(H) 5 - 25 mg/dL LAB CHEMISTRY METHOD 03/24/2024 4:49 PM [facility] Creatinine 0.54 0.50 - 1.10 mg/dL LAB CHEMISTRY METHOD 03/24/2024 4:49 PM [facility] eGFR 100 >=60 mL/min/1. 73m2 LAB CHEMISTRY METHOD 03/24/2024 4:49 PM [facility] Comment:Calculation based on the??Chronic Kidney Disease Epidemiology Collaboration (CKD-EPI) equation refit??without adjustment for race. BUN/Creatinine Ratio 51.9 LAB CHEMISTRY METHOD 03/24/2024 4:49 PM [facility] Calcium 8.8 8.5 - 10.5 mg/dL LAB CHEMISTRY METHOD 03/24/2024 4:49 PM [facility] Blood Venous blood specimen / Unknown Venipuncture / Unknown 03/24/2024 4:05 PM EST 03/24/2024 4:12 PM EST us Taina SUAREZ LAB BLOOD ORDERABLES F inal Result [facility] [address] [place] [address], * ECG 12 lead (03/24/2024 3:56 PM EST) Ventricular Rate ECG 100 BPM GEMUSE Atrial Rate 100 BPM GEMUSE P-R Interval 138 ms GEMUSE QRS Duration 72 ms GEMUSE Q-T Interval 320 ms GEMUSE QTc 412 ms GEMUSE P Wave [place] 77 degrees GEMUSE R [place] 29 degrees GEMUSE T [place] 58 degrees GEMUSE ECG Interpretation Normal sinus rhythm Normal ECG When compared with ECG of 03-JUN-2020 06:36, Vent. rate has increased BY ??40 BPM Confirmed by FISH LOUIS ([id number]) on 03/25/2024 6:18:35 PM GEMUSE 03/24/2024 3:56 PM EST 03/25/2024 6:18 PM EST us Taina SUAREZ ECG ORDERABLES Final Result GEMUSE documented in this encounter Visit Diagnoses Diagnosis Multifocal pneumonia- Primary Shortness of breath Multifocal pneumonia COPD exacerbation (CMS/HCC) Obstructive chronic bronchitis with exacerbation documented in this encounter Admitting Diagnoses Diagnosis Multifocal pneumonia documented in this encounter Administered Medications Inactive Administered Medications - up to 3 most recent administrations Medication Order MAR Action Action Date Dose Rate Site acetaminophen (TYLENOL) tablet 650 mg 650 mg, oral, Every 4 hours PRN, mild pain, headaches, fever - temperature GREATER than 38 C (100.4 F), Starting on 03/24/24 at 205 Given 03/25/2024 10:16 AM EST 650 mg albuterol 2.5 mg /3 mL (0.083 %) nebulizer solution 5 mg 5 mg, nebulization, Once, On 03/24/24 at 1514, For 1 dose Given 03/24/2024 3:29 PM EST 5 mg atorvastatin (LIPITOR) tablet 20 mg 20 mg, oral, Nightly, First dose on 03/24/24 at 2100 Given 03/24/2024 10:40 PM EST 20 mg azithromycin (ZITHROMAX) 500 mg in sodium chloride 0.9 % 250 mL IVPB 500 mg, intravenous, at 250 mL/hr, Administer over 60 Minutes, Once, On 03/24/24 at 204, For 1 dose, Indication: Pneumonia, Community Acquired New Bag 03/24/2024 10:40 PM EST 500 mg 250 mL/hr cefTRIAXone (ROCEPHIN) 1 g in sterile water 10 mL IV syringe 1 g, intravenous, at 200 mL/hr, Administer over 3 Minutes, Once, On 03/24/24 at 1916, For 1 dose, Do not administer simultaneously with any calcium containing solutions via a Y-site in any patient., Indication: Pneumonia, Community Acquired Given 03/24/2024 8:57 PM EST 1 g 200 mL/hr enoxaparin (LOVENOX) injection 40 mg 40 mg, subcutaneous, Every 24 hours scheduled, First dose on 03/24/24 at 2052, Indication: VTE/PE Prophylaxis Given 03/24/2024 10:41 PM EST 40 mg Left Lower Abdomen guaiFENesin (MUCINEX) 12 hr tablet 600 mg 600 mg, oral, Every 12 hours scheduled, First dose on 03/24/24 at 2230, Administer with plenty of fluids to ensure proper action. Do not crush, chew, or split. Given 03/25/2024 8:22 AM EST 600 mg Given 03/24/2024 10:40 PM EST 600 mg iopamidoL (ISOVUE-370) 370 mg iodine /mL (76 %) injection 100 mL 100 mL, intravenous, Once in imaging, Starting on 03/24/24 at 1827, For 1 dose Given 03/24/2024 6:31 PM EST 90 mL ipratropium (ATROVENT) 0.02 % nebulizer solution 0.5 mg 0.5 mg, nebulization, Once, On 03/24/24 at 1514, For 1 dose, Give with albuterol if concurrently ordered. Given 03/24/2024 3:29 PM EST 0.5 mg ipratropium-albuteroL (DUONEB) 0.5-2.5 mg/3 mL nebulizer solution 3 mL 3 mL, nebulization, 4 times daily, First dose on 03/25/24 at 0800 Given 03/25/2024 12:45 PM EST 3 mL Given 03/25/2024 8:10 AM EST 3 mL magnesium sulfate 2 gram/50 mL (4 %) IVPB 2 g 2 g, intravenous, at 50 mL/hr, Administer over 1 Hours, Once, On 03/24/24 at 1654, For 1 dose New Bag 03/24/2024 5:03 PM EST 2 g 50 mL/hr ondansetron (PF) (ZOFRAN) injection 4 mg 4 mg, intravenous, Every 8 hours PRN, vomiting, nausea, Starting on 03/24/24 at 2050, -ONLY give IV if patient is unable to take orally. -If inadequate response within 30 minutes, proceed to next-line agent or contact provider if no further options ordered. ondansetron ODT (ZOFRAN-ODT) disintegrating tablet 4 mg 4 mg, oral, Every 8 hours PRN, vomiting, nausea, Starting on 03/24/24 at 2050, -Give IV if patient is unable to take orally. -If inadequate response within 30 minutes, proceed to next-line agent or contact provider if no further options ordered. For ODT tablets: -Do not remove from blister pack until just before administering. -Patient should allow tablet to dissolve on tongue. pantoprazole (PROTONIX) EC tablet 40 mg 40 mg, oral, Every morning before breakfast, First dose on 03/25/24 at 0700, Do not crush, chew, or split. Given 03/25/2024 5:39 AM EST 40 mg predniSONE (DELTASONE) tablet 40 mg 40 mg, oral, Daily, First dose on 03/24/24 at 2051, For 5 doses Given 03/25/2024 8:22 AM EST 40 mg Given 03/24/2024 10:40 PM EST 40 mg prochlorperazine (COMPAZINE) injection 10 mg 10 mg, intravenous, Every 6 hours PRN, nausea, vomiting, Starting on 03/24/24 at 2050, 2nd Line Option: -ONLY give IV if patient is unable to take orally. -Give IM if patient does not have IV Access -If inadequate response within 30 minutes, proceed to next-line agent or contact provider if no further options ordered. prochlorperazine (COMPAZINE) suppository 25 mg 25 mg, rectal, Every 12 hours PRN, nausea, vomiting, Starting on 03/24/24 at 2050, 2nd Line Option: -ONLY give WI if patient is unable to take orally and cannot receive IV/IM. -If inadequate response within 30 minutes, proceed to next-line agent or contact provider if no further options ordered. prochlorperazine (COMPAZINE) tablet 10 mg 10 mg, oral, Every 6 hours PRN, nausea, vomiting, Starting on 03/24/24 at 2050, 2nd Line Option: -Give IV or IM if patient is unable to take orally. -If inadequate response within 30 minutes, proceed to next-line agent or contact provider if no further options ordered. sodium chloride 0.9 % bolus 500 mL 500 mL, intravenous, at 1,000 mL/hr, Administer over 30 Minutes, Once, On 03/24/24 at 1716, For 1 dose New Bag 03/24/2024 6:06 PM EST 500 mL 1000 mL/hr sodium chloride 0.9 % bolus 500 mL 500 mL, intravenous, at 1,000 mL/hr, Administer over 30 Minutes, Once, On 03/24/24 at 1917, For 1 dose New Bag 03/24/2024 8:56 PM EST 500 mL 1000 mL/hr sodium chloride 0.9 % flush 10 mL 10 mL, intravenous, Once, On 03/24/24 at 1828, For 1 dose Given 03/24/2024 6:31 PM EST 10 mL sodium chloride 0.9 % flush 10 mL 10 mL, intravenous, 2 times daily, First dose on 03/24/24 at 2100 Given 03/25/2024 8:22 AM EST 10 mL Given 03/24/2024 10:41 PM EST 10 mL sodium chloride 0.9 % flush 10 mL 10 mL, intravenous, As needed, line care, Starting on 03/24/24 at 2050 traZODone (DESYREL) tablet 50 mg 50 mg, oral, Once, On 03/24/24 at 2230, For 1 dose Given 03/24/2024 10:40 PM EST 50 mg documented in this encounter Discontinued Medications Medication Sig Discontinue Reason Start Date End Da te meloxicam (MOBIC) 15 mg tablet Take 1 Tablet by mouth daily. 03/24/2024 PARoxetine (PAXIL) 40 mg tablet Take 40 mg by mouth every morning. 03/24/2024 pramipexole (MIRAPEX) 0.25 mg tablet Take 0.25 mg by mouth 3 times daily. 03/24/2024 predniSONE (DELTASONE) 10 mg tablet Take 4 tablets (40 mg total) by mouth 1 (one) time each day for 2 days, THEN 3 tablets (30 mg total) 1 (one) time each day for 2 days, THEN 2 tablets (20 mg total) 1 (one) time each day for 2 days, THEN 1 tablet (10 mg total) 1 (one) time each day for 2 days. 03/25/2024 03/25/2024 documented as of this encounter Historical Medications * This list may reflect changes made after this encounter. romosozumab-aqqg (Evenity) Inject 2.34 mL (210 mg total) under the skin every 30 (thirty) days. added in this encounter Active and Recently Administered Medications Times are shown in EST. Scheduled Medication Order 03/23/2024 03/24/2024 03/25/2024 albuterol 2.5 mg /3 mL (0.083 %) nebulizer solution 5 mg (COMPLETED) 5 mg, nebulization, Once, On 03/24/24 at 1514, For 1 dose 1529 (Given - Provider: Melba Villalpando RN) atorvastatin (LIPITOR) tablet 20 mg 20 mg, oral, Nightly, First dose on 03/24/24 at 2100 2240 (Given - Provider: Kemi Cunningham RN) azithromycin (ZITHROMAX) 500 mg in sodium chloride 0.9 % 250 mL IVPB (COMPLETED) 500 mg, intravenous, at 250 mL/hr, Administer over 60 Minutes, Once, On 03/24/24 at 2045, For 1 dose, Indication: Pneumonia, Community Acquired 2240 (New Bag - Provider: Kemi Cunningham RN)2344 (Stopped - Provider: Kemi Cunningham RN) azithromycin (ZITHROMAX) tablet 500 mg 500 mg, oral, Nightly, First dose on 03/25/24 at 2100, For 3 days, Indication: Pneumonia, Community Acquired cefTRIAXone (ROCEPHIN) 1 g in sterile water 10 mL IV syringe (COMPLETED) 1 g, intravenous, at 200 mL/hr, Administer over 3 Minutes, Once, On 03/24/24 at 1916, For 1 dose, Do not administer simultaneously with any calcium containing solutions via a Y-site in any patient., Indication: Pneumonia, Community Acquired 2056 (Given - Provider: Fish Gambino RN - Comment: Not given at scheduled time) cefTRIAXone (ROCEPHIN) 1 g in sterile water 10 mL IV syringe 1 g, intravenous, at 200 mL/hr, Administer over 3 Minutes, Every 24 hours, First dose on 03/25/24 at 0800, For 7 days, Do not administer simultaneously with any calcium containing solutions via a Y-site in any patient., Indication: Urinary Tract/Genitourinary 0821 (Canceled Entry - Provider: Ksenia Gracia, KAMRAN) enoxaparin (LOVENOX) injection 40 mg 40 mg, subcutaneous, Every 24 hours scheduled, First dose on 03/24/24 at 2052, Indication: VTE/PE Prophylaxis 224 (Given - Provider: Kemi Cunningham RN) 0822 (Canceled Entry - Provider: Ksenia Gracia RN) guaiFENesin (MUCINEX) 12 hr tablet 600 mg 600 mg, oral, Every 12 hours scheduled, First dose on 03/24/24 at 2230, Administer with plenty of fluids to ensure proper action. Do not crush, chew, or split. 224 (Given - Provider: Kemi Cunningham RN) 08 (Given - Provider: Ksenia Gracia RN) iopamidoL (ISOVUE-370) 370 mg iodine /mL (76 %) injection 100 mL (COMPLETED) 100 mL, intravenous, Once in imaging, Starting on 03/24/24 at 1827, For 1 dose 1831 (Given - Provider: Angelique Morillo) ipratropium (ATROVENT) 0.02 % nebulizer solution 0.5 mg (COMPLETED) 0.5 mg, nebulization, Once, On 03/24/24 at 1514, For 1 dose, Give with albuterol if concurrently ordered. 1529 (Given - Provider: Melba Villalpando RN) ipratropium-albuteroL (DUONEB) 0.5-2.5 mg/3 mL nebulizer solution 3 mL 3 mL, nebulization, 4 times daily, First dose on 03/25/24 at 0800 0810 (Given - Provid er: Kathi Pena)1245 (Given - Provider: Kathi Pena)1600 (Canceled Entry - Provider: Automatic Discharge Provider - Comment: Automatically canceled at discontinue of medication order) magnesium sulfate 2 gram/50 mL (4 %) IVPB 2 g (COMPLETED) 2 g, intravenous, at 50 mL/hr, Administer over 1 Hours, Once, On 03/24/24 at 1654, For 1 dose 1703 (New Bag - Provider: Melba Villalpando RN)180 (Stopped - Provider: Melba Villalpando RN) pantoprazole (PROTONIX) EC tablet 40 mg 40 mg, oral, Every morning before breakfast, First dose on 03/25/24 at 0700, Do not crush, chew, or split. 0539 (Given - Provid er: Kemi Cunningham RN) predniSONE (DELTASONE) tablet 40 mg 40 mg, oral, Daily, First dose on 03/24/24 at 205, For 5 doses 2240 (Given - Provider: Kemi Cunningham RN) 0822 (Given - Provider: Ksenia Gracia RN) sodium chloride 0.9 % bolus 500 mL (COMPLETED) 500 mL, intravenous, at 1,000 mL/hr, Administer over 30 Minutes, Once, On 03/24/24 at 1716, For 1 dose 180 (New Bag - Provider: Melba Villalpando RN)1925 (Stopped - Provider: Melba Villalpando RN) sodium chloride 0.9 % bolus 500 mL (COMPLETED) 500 mL, intravenous, at 1,000 mL/hr, Administer over 30 Minutes, Once, On 03/24/24 at 1917, For 1 dose 2055 (New Bag - Provider: Fish Gambino RN - Comment: Not given at scheduled time)220 (Stopped - Provider: Kemi Cunningham RN) sodium chloride 0.9 % flush 10 mL (COMPLETED) 10 mL, intravenous, Once, On 03/24/24 at 1828, For 1 dose 183 (Given - Provider: Angelique Morillo) sodium chloride 0.9 % flush 10 mL(Linked Group 1) 10 mL, intravenous, 2 times daily, First dose on 03/24/24 at 2100 2241 (Given - Provider: Kemi Cunningham RN) 0822 (Given - Provider: Ksenia Gracia RN) traZODone (DESYREL) tablet 50 mg (COMPLETED) 50 mg, oral, Once, On 03/24/24 at 2230, For 1 dose 2240 (Given - Provider: Kemi Cunningham RN) PRN Medication Order 03/23/2024 03/24/2024 03/25/2024 acetaminophen (TYLENOL) tablet 650 mg 650 mg, oral, Every 4 hours PRN, mild pain, headaches, fever - temperature GREATER than 38 C (100.4 F), Starting on 03/24/24 at 2050 1016 (Given - Provid er: Ksenia Gracia RN) ipratropium-albuteroL (DUONEB) 0.5-2.5 mg/3 mL nebulizer solution 3 mL 3 mL, nebulization, Every 4 hours PRN, wheezing, shortness of breath, Starting on 03/24/24 at 2050 ondansetron (PF) (ZOFRAN) injection 4 mg(Linked Group 2) 4 mg, intravenous, Every 8 hours PRN, vomiting, nausea, Starting on 03/24/24 at 2050, -ONLY give IV if patient is unable to take orally. -If inadequate response within 30 minutes, proceed to next-line agent or contact provider if no further options ordered. ondansetron ODT (ZOFRAN-ODT) disintegrating tablet 4 mg(Linked Group 2) 4 mg, oral, Every 8 hours PRN, vomiting, nausea, Starting on 03/24/24 at 2050, -Give IV if patient is unable to take orally. -If inadequate response within 30 minutes, proceed to next-line agent or contact provider if no further options ordered. For ODT tablets: -Do not remove from blister pack until just before administering. -Patient should allow tablet to dissolve on tongue. prochlorperazine (COMPAZINE) injection 10 mg(Linked Group 3) 10 mg, intravenous, Every 6 hours PRN, nausea, vomiting, Starting on 03/24/24 at 2050, 2nd Line Option: -ONLY give IV if patient is unable to take orally. -Give IM if patient does not have IV Access -If inadequate response within 30 minutes, proceed to next-line agent or contact provider if no further options ordered. prochlorperazine (COMPAZINE) suppository 25 mg(Linked Group 3) 25 mg, rectal, Every 12 hours PRN, nausea, vomiting, Starting on 03/24/24 at 2050, 2nd Line Option: -ONLY give WI if patient is unable to take orally and cannot receive IV/IM. -If inadequate response within 30 minutes, proceed to next-line agent or contact provider if no further options ordered. prochlorperazine (COMPAZINE) tablet 10 mg(Linked Group 3) 10 mg, oral, Every 6 hours PRN, nausea, vomiting, Starting on 03/24/24 at 2050, 2nd Line Option: -Give IV or IM if patient is unable to take orally. -If inadequate response within 30 minutes, proceed to next-line agent or contact provider if no further options ordered. sodium chloride 0.9 % flush 10 mL(Linked Group 1) 10 mL, intravenous, As needed, line care, Starting on 03/24/24 at 2050 Linked Groups Order Group 1: Insert peripheral IV (CANCELED) STAT, Once, On 03/24/24 at 2051, For 1 occurrence And Maintain IV access (CANCELED) Until discontinued, Starting on 03/24/24 at 2051, Until Specified And Saline lock IV (CANCELED) Routine, Once, On 03/24/24 at 2051, For 1 occurrence And sodium chloride 0.9 % flush 10 mLJump to med 10 mL, intravenous, 2 times daily, First dose on 03/24/24 at 2100 And sodium chloride 0.9 % flush 10 mLJump to med 10 mL, intravenous, As needed, line care, Starting on 03/24/24 at 2050 Group 2: ondansetron ODT (ZOFRAN-ODT) disintegrating tablet 4 mgJump to med 4 mg, oral, Every 8 hours PRN, vomiting, nausea, Starting on 03/24/24 at 2050, -Give IV if patient is unable to take orally. -If inadequate response within 30 minutes, proceed to next-line agent or contact provider if no further options ordered. For ODT tablets: -Do not remove from blister pack until just before administering. -Patient should allow tablet to dissolve on tongue. Or ondansetron (PF) (ZOFRAN) injection 4 mgJump to med 4 mg, intravenous, Every 8 hours PRN, vomiting, nausea, Starting on 03/24/24 at 2050, -ONLY give IV if patient is unable to take orally. -If inadequate response within 30 minutes, proceed to next-line agent or contact provider if no further options ordered. Group 3: prochlorperazine (COMPAZINE) tablet 10 mgJump to med 10 mg, oral, Every 6 hours PRN, nausea, vomiting, Starting on 03/24/24 at 2050, 2nd Line Option: -Give IV or IM if patient is unable to take orally. -If inadequate response within 30 minutes, proceed to next-line agent or contact provider if no further options ordered. Or prochlorperazine (COMPAZINE) injection 10 mgJump to med 10 mg, intravenous, Every 6 hours PRN, nausea, vomiting, Starting on 03/24/24 at 2050, 2nd Line Option: -ONLY give IV if patient is unable to take orally. -Give IM if patient does not have IV Access -If inadequate response within 30 minutes, proceed to next-line agent or contact provider if no further options ordered. Or prochlorperazine (COMPAZINE) suppository 25 mgJump to med 25 mg, rectal, Every 12 hours PRN, nausea, vomiting, Starting on 03/24/24 at 2050, 2nd Line Option: -ONLY give WI if patient is unable to take orally and cannot receive IV/IM. -If inadequate response within 30 minutes, proceed to next-line agent or contact provider if no further options ordered. documented in this encounter Orders Medications Ordered That Adithya ht Not Have Been Administered Count Last Ordered Date First Ordered Date aspirin chewable tablet 324 mg 03/24/2024 azithromycin (ZITHROMAX) tablet 500 mg cefTRIAXone (ROCEPHIN) 1 g i n sterile water 10 mL IV syringe 03/24/2024 doxycycline (VIBRAMYCIN) 100 mg in sodium chloride 0.9 % 100 mL IVPB 03/24/2024 ipratropium-albuteroL (DUONE B) 0.5-2.5 mg/3 mL nebulizer solution 3 mL 03/24/2024 ondansetron (PF) (ZOFRAN) injection 4 mg 03/24/2024 ondansetron ODT (ZOFRAN-ODT) disintegrating tablet 4 mg 03/24/2024 prochlorperazine (COMPAZINE) injection 10 mg 1 03/24/2024 prochlorperazine (COMPAZINE) suppository 25 mg 1 03/24/2024 prochlorperazine (COMPAZINE) tablet 10 mg 1 03/24/2024 sodium chloride 0.9 % flush 10 mL 1 025 Consult Count Last Ordered Date First Orde red Date POST ACUTE HOME HEALTH CARE REQUEST 1 03/27 Respiratory Care Count Last Ordered Date First Ordered Date OXYGEN THERAPY, ADULT 2 03/24/2024 PEP THERAPY 2 03/24/2024 Admission Count Last Ordered Date First Orde red Date INITIATE OBSERVATION STATUS 1 03/24/2024 Transfer Count Last Ordered Date First Orde red Date ED TO FLOOR BED REQUEST 1 03/24/2024 Discharge Count Last Ordered Date First Orde red Date DISCHARGE PATIENT 1 03/25/2024 documented in this encounter Additional Health Concerns Infection Onset Date Last Indicated Resolved Time Respiratory Rule-Out 03/24/2024 03/24/2024 025 5:08 PM EST COVID-19 Rule-Out 03/24/2024 03/24/2024 03/24/2024 5:08 PM EST documented as of this encounter Care Teams Call Or Contact Centre Coach Relationship Specialty Start Date End Date Donna Romero MD [address] [place] [address] PCP - General Internal Medicine 10/30/18 documented as of this encounter
--- OUTSIDE RECORDS SUMMARY | 2024-04-12 12:12 | XMS_ITS | Clinical Summary ---
Author Organization [facility] Address [address] [place] [phone] Phone Care Team Providers Care Greenhouse Worker Name Role Phone Donna Romero MD Primary Care Provider [phone] Allergies No known active allergies Medications nabumetone (RELAFEN) 500 mg tablet Take 1 tablet (500 mg total) by mouth 2 (two) times a day. Active omeprazole (PriLOSEC) [address] capsule Take 1 capsule (20 mg total) by mouth 1 (one) time each day. 024 Active Oxygen Therapy (O2) gas Inhale into the lungs. Oxygen Historical (HISTORICAL OXYGEN) Active romosozumab-aqq g (Evenity) Inject 2.34 mL (210 mg total) under the skin every 30 (thirty) days. Active ipratropium-alb uteroL (DUONEB) 0.5-2.5 mg/3 mL nebulizer solutionIndicat ions:COPD exacerbation (CMS/HCC) Take 3 mL by nebulization 4 (four) times a day if needed for wheezing or shortness of breath for up to 7 days. 84 mL 025 Active benzonatate (TESSALON) 200 mg capsule Take 1 capsule (200 mg total) by mouth 3 (three) times a day if needed for cough. for 7 days 025 Active atorvastatin (LIPITOR) 10 mg tablet Take 1 tablet (10 mg total) by mouth at bedtime. 025 Active guaiFENesin (MUCINEX) 600 mg 12 hr tablet Take 1 tablet (600 mg total) by mouth every 12 (twelve) hours for 10 days. Do not crush, chew, or split. 20 each 025 2024 Active azithromycin (ZITHROMAX) 250 mg tablet Take 1 tablet (250 mg total) by mouth 1 (one) time each day for 6 doses. 6 each 025 2024 Active predniSONE (DELTASONE) 20 mg tablet Take 2 tablets (40 mg total) by mouth 1 (one) time each day for 3 days, THEN 1.5 tablets (30 mg total) 1 (one) time each day for 3 days, THEN 1 tablet (20 mg total) 1 (one) time each day for 3 days, THEN 0.5 tablets (10 mg total) 1 (one) time each day for 3 days. 15 each 025 2024 Active magnesium oxide (MAG-OX) 400 mg (241.3 elemental magnesium) tablet Take 1 tablet (400 mg total) by mouth 2 (two) times a day. 60 each 025 2024 Active midodrine (PROAMATINE) 5 mg tablet Take 1 tablet (5 mg total) by mouth 3 (three) times a day before meals. 90 each 025 2024 Active fluticasone-ume clidinium-vilan terol (Trelegy Ellipta) 200-62.5-25 mcg inhaler Inhale 1 puff (200 mcg total) by mouth 1 (one) time each day. Rinse mouth with water after use to reduce aftertaste and incidence of candidiasis. Do not swallow. 1 each 025 2025 Active meloxicam (MOBIC) 15 mg tablet Take 1 Tablet by mouth daily. 2024 Discontinued atorvastatin (LIPITOR) 20 mg tablet Take 20 mg by mouth daily. 2024 Discontinued(E ntered in Error) fluticasone-ume clidinium-vilan terol (Trelegy Ellipta) 100-62.5-25 mcg inhaler Inhale 1 puff (100 mcg total) by mouth 1 (one) time each day. 2024 Discontinued PARoxetine (PAXIL) 40 mg tablet Take 40 mg by mouth every morning. 2024 Discontinued pramipexole (MIRAPEX) 0.25 mg tablet Take 0.25 mg by mouth 3 times daily. 2024 Discontinued azithromycin (ZITHROMAX) 500 mg tablet Take 1 tablet (500 mg total) by mouth at bedtime for 3 doses. 3 each 2024 Discontinued(S top Taking at Discharge) cefpodoxime (VANTIN) 200 mg tablet Take 1 tablet (200 mg total) by mouth 2 (two) times a day for 5 days. 10 each 2024 Discontinued(S top Taking at Discharge) dextromethorpha n-guaiFENesin (ROBITUSSIN-DM) 10-100 mg/5 mL syrup Take 10 mL by mouth every 4 (four) hours if needed for cough for up to 10 days. 600 mL 2024 Discontinued predniSONE (DELTASONE) 10 mg tablet Take 4 [...] each day for 2 days. 20 each 025 2024 Discontinued predniSONE (DELTASONE) 10 mg tablet Take 4 [...] each day for 2 days. 20 each 025 2024 Discontinued(S top Taking at Discharge) atorvastatin (LIPITOR) 10 mg tablet Take 1 tablet (10 mg total) by mouth 1 (one) time each day. 024 2024 Discontinued(S top Taking at Discharge) doxycycline (VIBRAMYCIN) 100 mg capsule Take 1 capsule (100 mg total) by mouth 2 (two) times a day. for 7 days 025 2024 Discontinued(S top Taking at Discharge) Active Problems Problem Noted Date Diagnosed Date Weakness generalized 04/05/2024 Hypotension 04/04/2024 Multifocal pneumonia 03/24/2024 Hiatal hernia 12/15/2021 Overview (01/13/2024): Last Assessment & Plan: CT demonstates small hiatal hernia and patient is symptomatic. She is not medically managed at this time and once optimized and her symptoms continue, can consider surgical treatment. Prescribe Omperazole 20 mg daily and refer to GI for evaluation. 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 Encounters Date Type Department Care Team Description 04/12/2024 8:30 AM EST Office Visit Pulmonolgy - [place] [address] [facility] [address] [place] [phone] Ana Flaherty MD Chronic obstructive pulmonary disease, unspecified COPD type (CMS/HCC) (Primary Dx); Hypoxemia 04/04/2024 8:25 AM EST - 04/07/2024 1:21 PM EST Emergency [facility] Intermediate Care Unit [address] [place] [phone] Saray Darden DO Kenton, Mark A, MD Bukalo, Nermina, MD Bell, Alistair A, MD COPD exacerbation (CMS/HCC) (Primary Dx); Hypotension, unspecified hypotension type Discharge Disposition: Home or Self Care 03/24/2024 2:29 PM EST - 03/25/2024 3:51 PM EST Emergency [facility] Urology Unit [address] [place] [address] Bryce Woods MD Jones, Christopher, MD Nasser, Nada S, MD Santoyo-Pacheco, Omar D, MD Multifocal pneumonia (Primary Dx); Shortness of breath; COPD exacerbation (CMS/HCC) Discharge Disposition: Home or Self Care from Last 3 Months Surgical History Surgery Date Site/Laterality Comments OTHER SURGICAL HISTORY PROCEDURE: TX RMVL LUNG OTH/THN PNUMEC RESXN-PLCTJ EMPHY LUNG OTHER SURGICAL HISTORY 06/03/2020 Right PROCEDURE: TX RESCJ&BRONCHOPLASTY PFRMD TM LOBEC/SGMECTOMY; COMMENT: RUL Wedge [...] drink = 0.6 oz pur e alcohol) Housing Instability Answer Date Recorde d Are you worried that in the next 2 months you may not have stable housing? Patient declined 04/05/2024 Food Access & Nutrition Answer Date Rec orded Do you have access to a vari ety of food including fruits and vegetables? Patient declined 04/05/2024 Health Literacy Answer Date Recorded How often do you need to hav e someone help you when you read instructions, pamphlets, or other written material from your doctor or pharmacy? Patient declined 04/05/2024 Caregiver: How often do you need to have someone help you when you read instructions, pamphlets, or other written material from your doctor or pharmacy? Not on file 025 Financial Risk Answer Date Recorded How hard is it for you to pa y for the very basics like food, housing, medical care, and air conditioning / heating? Patient declined 04/05/2024 Transportation Answer Date Recorded Has the lack of transportati on kept you from meetings, work, or from getting things needed for daily living? Patient declined 04/05/2024 Has the lack of transportati on kept you from medical appointments or from getting medications? Patient declined 04/05/2024 Social Isolation Answer Date Recorded How often do you feel lonely or isolated from those around you? Patient declined 04/05/2024 Food Risk Answer Date Recorded Within the past 12 months we worried whether our food would run out before we got money to buy more. Patient declined 025 Within the past 12 months th e food we bought just didn't last and we didn't have money to get more. Patient declined 03/11 Dependent Care Answer Date Recorded Do you need help finding or paying for care for your loved ones. For example, child care coordinator or elderly care for an older adult? Patient declined 04/05/2024 Education Answer Date Recorded Do you think completing more education or training, like finishing a GED, going to college, or learning a trade, would be helpful for you? Patient declined 04/05/2024 Employment and Income Answer Date Recor ded During the last four weeks, have you been actively looking for work? Patient declined 04/05/2024 Living Situation Answer Date Recorded What is your living situation? 0 04/05/2024 Interpersonal Safety Answer Date Record ed Physical Abuse 04/05/2024 Verbal Abuse 04/05/2024 Comments Unknown Sex and Gender Information Value Date Recorded Sex Assigned at Female 03/24/2024 3:15 PM EST Legal Sex Female 10:45 AM EST Gender Identity Female 03/24/2024 3:15 PM EST Sexual Orientation Straight 03/24/2024 3: 15 PM EST Obstetrics History Last Filed Vital Signs Vital Sign Reading Time Taken Comments Blood Pressure 96/46 04/12/2024 8:28 AM EST Pulse 77 04/12/2024 8:28 AM EST Temperature 36.7 ??C (98.1 ??F) 04/07/2024 11:[address] Respiratory Rate 16 04/12/2024 8:28 AM EST Oxygen Saturation 96% 04/12/2024 8:28 AM EST Inhaled Oxygen Concentration - - Weight 39.8 kg (87 lb 12.8 oz) 04/12/2024 8:28 A M EST Height 149.9 cm (4' 11 ) 04/12/2024 8:28 AM EST Body Mass Index 17.73 04/12/2024 8:28 AM EST Plan of Treatment Upcoming Encounters Date Type Department Care Team (Late st Contact Info) Description 07/09/2024 10:30 AM EDT Appointment [facility] CT Scan [address] [place] [phone] 07/19/2024 9:00 AM EDT Ancillary Procedure Pulmonolgy [facility] [address] [phone] Adarsh Henriquez 07/19/2024 10:00 AM EDT [facility] [address] [place] [phone] Ana Flaherty MD [address] [address] Health Maintenance Due Date Last Done Comments Breast Cancer Screening 1955 DTaP,Tdap,and Td Vaccines (1 - Tdap) 1973 Hepatitis A Vaccines (1 of 2 - Risk 2-dose series) 1973 RSV Immunization Patients 60+ Years Old (1 - Risk 60-74 years 1-dose series) 2014 Zoster Vaccines (2 of 2) 07/09/2018 05/14/2018, 09/07 Cholesterol Screening (Lipid Panel) 01/05/2022 Colorectal Cancer Screening: Colonoscopy 01/05/2022 Depression Screening 01/05/2022 Hepatitis C Screening 01/05/2022 Osteoporosis Screening (Bone Density Screening) 01/05/2022 COVID-19 Vaccine ( season) 2023 05/15/2021, 11/15/2020, 05/17/2020, Additional history exists Influenza Vaccine (#1) 2023 , 11/17/2016, 12/10/2015, Additional history exists Social Influencers of Health Screening 04/05/2025 04/05/2024 Falls Risk Assessment 04/07/2025 04/07/2024 Pneumococcal Vaccine: 50+ Years Completed 09/09/2022, 03/17/2022, 09/16/2020 HIB Vaccines Aged Out No longer eligi [...] patient's age to complete this topic Meningococcal B Vacine Aged Out No lo nger eligible based on patient's age to complete this topic RSV Immunization Patients Under 20 months Aged Out No longer eligible based on patient's age to complete this topic Varicella Vaccines Aged Out No longer eligible based on patient's age to complete this topic Procedures Procedure Name Priority Date/Time Associated Diagnosis Comments ECG ANNOTATED 04/09/2024 MAGNESIUM Routine 04/07/2024 6:01 AM EST BASIC METABOLIC PANEL Routine 04/07/2024 6:01 AM EST LAVENDER - EDTA Routine 04/07/2024 5:58 AM EST EXTRA TUBES Routine 04/07/2024 5:58 AM EST PROCALCITONIN Add-On 04/05/2024 4:08 AM EST PHOSPHORUS Routine 04/05/2024 4:08 AM EST MAGNESIUM Routine 04/05/2024 4:08 AM EST BASIC METABOLIC PANEL Routine 04/05/2024 4:08 AM EST B-TYPE NATRIURETIC PEPTIDE STAT 04/04/2024 10:19 AM EST CULTURE BLOOD STAT 04/04/2024 10:19 AM EST CULTURE BLOOD STAT 04/04/2024 10:[address] ANGIO CHEST WO AND/OR W CONTRAST STAT 04/04/2024 10:04 AM EST COPD exacerbation (CMS/HCC) RADER URINE CULTURE TUBE STAT 04/04/2024 9:52 AM EST URINALYSIS WITH REFLEX MICROSCOPIC AND CULTURE STAT 04/04/2024 9:52 AM EST URINALYSIS WITH REFLEX MICROSCOPIC AND CULTURE STAT 04/04/2024 9:52 AM EST CULTURE URINE STAT 04/04/2024 9:52 AM EST RESPIRATORY VIRUS PANEL MOLECULAR STUDY STAT 04/04/2024 9:45 AM EST THYROID STIMULATING HORMONE WITH REFLEX TO FREE T4 AND FREE T3 Add-On 04/04/2024 9:19 AM EST COMPREHENSIVE METABOLIC PANEL STAT 04/04/2024 9:19 AM EST LACTATE STAT 04/04/2024 9:19 AM EST VENOUS BLOOD GAS STAT 04/04/2024 9:19 AM EST CBC WITH AUTO DIFFERENTIAL STAT 04/04/2024 9:19 AM EST CBC AND DIFFERENTIAL STAT 04/04/2024 9:19 AM EST ECG 12-LEAD STAT 04/04/2024 9:10 AM EST XR CHEST 2 VIEWS STAT 04/04/2024 8:55 AM EST ECG ANNOTATED 03/26/2024 ECG OUTSIDE 03/26/2024 CULTURE SPUTUM STAT 03/25/2024 8:26 AM EST CBC WITH AUTO DIFFERENTIAL Routine 03/25/2024 6:02 AM EST STREPTOCOCCUS PNEUMONIAE ANTIBODIES, IGG, 23 SEROTYPES Routine 03/25/2024 6:02 AM EST CBC AND DIFFERENTIAL Routine 03/25/2024 6:02 AM EST BASIC METABOLIC PANEL Routine 03/25/2024 6:02 AM EST RADER URINE CULTURE TUBE STAT 03/24/2024 11:09 PM EST URINALYSIS WITH REFLEX MICROSCOPIC AND CULTURE STAT 03/24/2024 11:09 PM EST URINALYSIS WITH REFLEX MICROSCOPIC AND CULTURE STAT 03/24/2024 11:09 PM EST LEGIONELLA ANTIGEN URINE, EIA STAT 03/24/2024 11:09 PM EST PEP THERAPY [...] 2 VIEWS STAT 03/24/2024 4:18 PM EST PROCALCITONIN STAT Add-on 03/24/2024 4:05 PM EST MAGNESIUM STAT 03/24/2024 4:05 PM EST TROPONIN I HIGH SENSITIVITY STAT 03/24/2024 4:05 PM EST B-TYPE NATRIURETIC PEPTIDE STAT 03/24/2024 4:05 PM EST CBC WITH AUTO DIFFERENTIAL STAT 03/24/2024 4:05 PM EST BASIC METABOLIC PANEL STAT 03/24/2024 4:05 PM EST CBC AND DIFFERENTIAL STAT 03/24/2024 4:05 PM EST RESPIRATORY VIRUS PANEL MOLECULAR STUDY STAT 03/24/2024 4:05 PM EST ECG 12-LEAD STAT 03/24/2024 3:56 PM EST from Last 3 Months Results * ECG-Annotated (04/09/2024) Only the most recent of2 resultswithin the time period is included. us Provider Onbase ECG ORDERABLES Final Result * (ABNORMAL) Magnesium (04/07/2024 6:01 AM EST) Only the most recent of3 resultswithin the time period is included. Magnesium 1.7(L) 1.9 - 2.6 mg/dL LAB CHEMISTRY METHOD 04/07/2024 7:27 AM EST [facility] Blood Venous blood specimen / Unknown Venipuncture / Unknown 04/07/2024 6:01 AM EST 04/07/2024 6:39 AM EST us Piyush Hallman MD LAB BLOOD ORDERABLES Final Re sult [facility] [address] [place] [address], * (ABNORMAL) Basic metabolic panel (04/07/2024 6:01 AM EST) Only the most recent of4 resultswithin the time period is included. Sodium 139 133 - 145 mmol/L LAB CHEMISTRY METHOD 04/07/2024 7:46 AM [facility] Potassium 3.6 3.5 - 5.5 mmol/L LAB CHEMISTRY METHOD 04/07/2024 7:46 AM [facility] Chloride 107 96 - 110 mmol/L LAB CHEMISTRY METHOD 04/07/2024 7:46 AM [facility] CO2 27 21 - 32 mmol/L LAB CHEMISTRY METHOD 04/07/2024 7:46 AM [facility] Anion Gap 5 3 - 11 LAB CHEMISTRY METHOD 04/07/2024 7:46 AM [facility] Glucose 100 70 - 100 mg/dL LAB CHEMISTRY METHOD 04/07/2024 7:46 AM [facility] BUN 16 5 - 25 mg/dL LAB CHEMISTRY METHOD 04/07/2024 7:46 AM [facility] Creatinine 0.35(L) 0.50 - 1.10 mg/dL LAB CHEMISTRY METHOD 04/07/2024 7:46 AM [facility] eGFR 111 >=60 mL/min/1. 73m2 LAB CHEMISTRY METHOD 04/07/2024 7:46 AM [facility] Comment:Calculation based on the??Chronic Kidney Disease Epidemiology Collaboration (CKD-EPI) equation refit??without adjustment for race. BUN/Creatinine Ratio 45.7 LAB CHEMISTRY METHOD 04/07/2024 7:46 AM [facility] Calcium 7.3(L) 8.5 - 10.5 mg/dL LAB CHEMISTRY METHOD 04/07/2024 7:46 AM EST [facility] Blood Venous blood specimen / Unknown Venipuncture / Unknown 04/07/2024 6:01 AM EST 04/07/2024 6:39 AM EST Piyush Hallman MD LAB BLOOD ORDERABLES Final Re sult Performing Organization Address City/[facility]/ZIP Co de Phone Number [facility] [address] [place] [address], [place] [phone] * Lavender tube (04/07/2024 5:58 AM EST) Extra Tube Hold for add-ons. 04/07/2024 8:01 AM EST [facility] Comment:Auto resulted. Blood Venous blood specimen / Unknown 04/07/2024 5:58 AM EST 04/07/2024 6:40 AM EST us Piyush Hallman MD LAB BLOOD ORDERABLES Final Re sult Performing Organization Address City/[facility]/ZIP Co de Phone Number [facility] [address] [place] [address], [place] [phone] * Procalcitonin (04/05/2024 4:08 AM EST) Only the most recent of2 resultswithin the time period is included. Procalcitonin <0.02 <=0.16 ng/mL LAB CHEMISTRY METHOD 04/05/2024 11:53 AM EST [facility] Blood Venous blood specimen / Unknown Venipuncture / Unknown 04/05/2024 4:08 AM EST 04/05/2024 4:40 AM EST Narrative [facility] - 04/05/2024 11:53 AM EST Procalcitonin > 2.00 ng/ml: Procalcitonin [...] if any concentrations <2.0 ng/mL are obtained. Piyush Hallman MD LAB BLOOD ORDERABLES Final Re sult Performing Organization Address City/[facility]/ZIP Co de Phone Number [facility] [address] [place] [address], * Phosphorus (04/05/2024 4:08 AM EST) Phosphorus 2.6 2.5 - 4.5 mg/dL LAB CHEMISTRY METHOD 04/05/2024 5:16 AM EST [facility] Blood Venous blood specimen / Unknown Venipuncture / Unknown 04/05/2024 4:08 AM EST 04/05/2024 4:40 AM EST Cynthia SUAREZ LAB BLOOD ORDERABLES Final Result Performing Organization Address City/[facility]/ZIP Co de Phone Number [facility] [address] [place] [address], * Blood Culture, Peripheral #2 (04/04/2024 10:19 AM EST) Only the most recent of4 resultswithin the time period is included. Culture, Blood No growth at 5 days 04/09/2024 11:01 AM EST [facility] Blood Venous blood specimen / Unknown Venipuncture / Unknown 04/04/2024 10:19 AM EST 04/04/2024 10:30 AM EST [facility] LAB MICROBIOLOGY - GENERAL ORDER ERAN Final Result Performing Organization Address [facility]/ZIP Co de Phone Number [facility] [address] [place] [address], [place] [phone] * B-type natriuretic peptide (04/04/2024 10:19 AM EST) Only the most recent of2 resultswithin the time period is included. BNP 4 <=100 pcg/mL LAB CHEMISTRY METHOD 04/04/2024 11:21 AM EST [facility] Blood Venous blood specimen / Unknown Venipuncture / Unknown 04/04/2024 10:19 AM EST 04/04/2024 10:30 AM EST [facility] LAB BLOOD ORDERABLES Final Resul t Performing Organization Address [facility] de Phone Number [facility] [address] [place] [address], [place] [phone] * CT Angio Chest wo and/or w Contrast (04/04/2024 10:04 AM EST) Only the most recent of2 resultswithin the time period is included. Anatomical Region Laterality Modality Body Computed Tomogra phy 04/04/2024 10:2 7 AM EST Impressions 04/04/2024 10:57 AM EST No pulmonary arterial emboli. No acute findings in the chest. Improved infectious or inflammatory bronchitis and bronchiolitis. Small hiatal hernia with circumferential thickening of the esophagus. ??Correlate for reflux esophagitis. ??Endoscopy could evaluate further. Unchanged scattered pulmonary nodules and emphysema. ??Recommend enrolling in annual lung cancer screening chest CT program. -------- FINAL REPORT -------- Dictated By: DARNELL BOOKER Dictated Date: 04/04/2024 10:27 ET Assigned Physician: DARNELL BOOKER Reviewed and Electronically Signed By: DARNELL BOOKER Signed Date: 04/04/2024 10:57 ET Workstation ID: [id number] Transcribed By: Self Edit Transcribed Date: 04/04/2024 10:27 ET Narrative 04/04/2024 10:57 AM EST PROCEDURE: Chest CTA INDICATION: Shortness of breath, hypotension TECHNIQUE: Chest CTA with intravenous administration of 90cc ISOVUE-370. Multi planar reformats were created and interpreted. The examination was performed utilizing dose reduction techniques.3-D or MIP images were produced with postprocessing on an independent computer workstation. ??Total DLP 153 COMPARISON: ??03/24/2024 FINDINGS: LUNGS/PLEURA: Central airways are patent. ??Right upper lobectomy. ??Scattered mucous plugging seen in the lower lobe airways. ??Scarring in the right middle and lower lobes, unchanged. ??Cystic scarring in the right lower lobe is unchanged. ??Resolved bronchial wall thickening and centrilobular nodularity. ??No pleural effusion or pneumothorax. ??New subpleural nodule in the left lower lobe, likely inflammatory. ??Unchanged groundglass nodule in the left upper lobe measuring 15 mm. ??Emphysema. ??No consolidation. MEDIASTINUM: No pulmonary arterial emboli. ??Thoracic aorta is normal in size. ??Small hiatal hernia with circumferential thickening of the esophagus. ??Thyroid gland is normal. ??No mediastinal or hilar lymphadenopathy. ??Low density within the anterior mediastinum is unchanged. ??Cardiac chambers are normal in size. ??No pericardial effusion. ??Mild coronary artery calcifications. CHEST WALL: No axillary lymphadenopathy or superficial hematoma. UPPER ABDOMEN:The visualized portions of the upper abdomen are unremarkable. BONES: No acute fracture. Scattered degenerative changes seen throughout the bones. Procedure Note Darnell Booker MD - 04/04/2024 PROCEDURE: Chest CTA INDICATION: Shortness of breath, hypotension TECHNIQUE: Chest CTA with intravenous administration of 90cc ISOVUE-370.Multi planar reformats were created and interpreted. The examination wasperformed utilizing dose reduction techniques.3-D or MIP images wereproduced with postprocessing on an independent computer workstation.Total DLP 153 COMPARISON: 03/24/2024 FINDINGS: LUNGS/PLEURA: Central airways are patent. Right upper lobectomy.Scattered mucous plugging seen in the lower lobe airways. Scarring in theright middle and lower lobes, unchanged. Cystic scarring in the rightlower lobe is unchanged. Resolved bronchial wall thickening andcentrilobular nodularity. No pleural effusion or pneumothorax. Newsubpleural nodule in the left lower lobe, likely inflammatory. Unchangedgroundglass nodule in the left upper lobe measuring 15 mm. Emphysema. Noconsolidation. MEDIASTINUM: No pulmonary arterial emboli. Thoracic aorta is normal insize. Small hiatal hernia with circumferential thickening of theesophagus. Thyroid gland is normal. No mediastinal or hilarlymphadenopathy. Low density within the anterior mediastinum isunchanged. Cardiac chambers are normal in size. No pericardial effusion.Mild coronary artery calcifications. CHEST WALL: No axillary lymphadenopathy or superficial hematoma. UPPER ABDOMEN:The visualized portions of the upper abdomen areunremarkable. BONES: No acute fracture. Scattered degenerative changes seen throughoutthe bones. IMPRESSION: No pulmonary arterial emboli. No acute findings in the chest. Improved infectious or inflammatory bronchitis and bronchiolitis. Small hiatal hernia with circumferential thickening of the esophagus.Correlate for reflux esophagitis. Endoscopy could evaluate further. Unchanged scattered pulmonary nodules and emphysema. Recommend enrollingin annual lung cancer screening chest CT program. -------- FINAL REPORT -------- Dictated By: DARNELL BOOKER Dictated Date: 04/04/2024 10:27 ET Assigned Physician: DARNELL BOOKER Reviewed and Electronically Signed By: DARNELL BOOKER Signed Date: 04/04/2024 10:57 ET Workstation ID: [id number] Transcribed By: Self Edit Transcribed Date: 04/04/2024 10:27 ET Loren SUAREZ [facility] CT PROCEDURES Final Result * (ABNORMAL) Urinalysis with reflex microscopic and culture (04/04/2024 9:52 AM EST) Only the most recent of2 resultswithin the time period is included. Specific [place] Urine 1.027 1.003 - 1.030 LAB URINALYSIS - AUTOMATED METHOD 04/04/2024 10:45 AM EST [facility] pH, Urine 6.5 5.0 - 8.0 pH LAB URINALYSIS - AUTOMATED METHOD 04/04/2024 10:45 AM [facility] Leukocytes, Urine Trace(A) Negative LAB URINALYSIS - AUTOMATED METHOD 04/04/2024 10:45 AM [facility] Nitrite, Urine Negative Negative LAB URINALYSIS - AUTOMATED METHOD 04/04/2024 10:45 AM [facility] Protein, Urine Negative <=Trace mg/dL LAB URINALYSIS - AUTOMATED METHOD 04/04/2024 10:45 AM [facility] Glucose, Urine Negative Negative mg/dL LAB URINALYSIS - AUTOMATED METHOD 04/04/2024 10:45 AM [facility] Ketones, Urine Trace(A) Negative mg/dL LAB URINALYSIS - AUTOMATED METHOD 04/04/2024 10:45 AM [facility] Urobilinogen, Urine 0.2 0.2 - 1.0 mg/dL LAB URINALYSIS - AUTOMATED METHOD 04/04/2024 10:45 AM [facility] Bilirubin, Urine Negative Negative LAB URINALYSIS - AUTOMATED METHOD 04/04/2024 10:45 AM [facility] Blood, Urine Negative Negative LAB URINALYSIS - AUTOMATED METHOD 04/04/2024 10:45 AM [facility] RBC, Urine 4.3(H) 0 - 4 /HPF LAB URINALYSIS - AUTOMATED METHOD 04/04/2024 10:45 AM [facility] WBC, Urine 4.8(H) 0 - 4 /HPF LAB URINALYSIS - AUTOMATED METHOD 04/04/2024 10:45 AM [facility] Squamous Epithelial, Urine 64(H) 0 - 60 /LPF LAB URINALYSIS - AUTOMATED METHOD 04/04/2024 10:45 AM [facility] Bacteria, Urine Few(A) Negative /HPF LAB URINALYSIS - AUTOMATED METHOD 04/04/2024 10:45 AM [facility] Hyaline Casts, Urine 1.2 0 - 3 /LPF LAB URINALYSIS - AUTOMATED METHOD 04/04/2024 10:45 AM [facility] Urine Urine specimen obtained by clean catch procedure / Unknown Non-blood Collection / Unknown 04/04/2024 9:52 AM EST 04/04/2024 10:31 AM EST [employer] [place] LAB URINE ORDERABLES Final Resul t Performing Organization Address City/[facility] Co de Phone Number [facility] [address] [place] [address], [place] [phone] * Rader urine culture tube (04/04/2024 9:52 AM EST) Only the most recent of2 resultswithin the time period is included. Extra Tube Hold for add-ons. 04/04/2024 12:02 PM [facility] Comment:Auto resulted. Urine Urine specimen obtained by clean catch procedure / Unknown Non-blood Collection / Unknown 04/04/2024 9:52 AM EST 04/04/2024 10:31 AM EST [employer] [place] LAB URINE ORDERABLES Final Resul t Performing Organization Address [facility]/ZIP Co de Phone Number [facility] [address] [place] [address], [place] [phone] * Culture urine (04/04/2024 9:52 AM EST) Culture, Urine No growth 04/05/2024 11:05 AM [facility] Urine Urine specimen obtained by clean catch procedure / Unknown Non-blood Collection / Unknown 04/04/2024 9:52 AM EST 04/04/2024 10:45 AM [facility] - GENERAL ORDER ERAN Final Result [facility] [address] [place] [address], * Respiratory virus panel molecular study (04/04/2024 9:45 AM EST) Only the most recent of2 resultswithin the time period is included. Adenovirus Detection by PCR Not Detected Not Detected LAB MICROBIOLOGY METHOD 04/04/2024 10:55 AM EST [facility] Influenza A PCR Not Detected Not Detected LAB MICROBIOLOGY METHOD 04/04/2024 10:55 AM EST [facility] Influenza B PCR Not Detected Not Detected LAB MICROBIOLOGY METHOD 04/04/2024 10:55 AM EST [facility] Coronavirus 229E Not Detected Not Detected LAB MICROBIOLOGY METHOD 04/04/2024 10:55 AM [facility] Coronavirus HKU1 Not Detected Not Detected LAB MICROBIOLOGY METHOD 04/04/2024 10:55 AM EST [facility] Coronavirus OC43 Not Detected Not Detected LAB MICROBIOLOGY METHOD 04/04/2024 10:55 AM EST [facility] Coronavirus NL63 Not Detected Not Detected LAB MICROBIOLOGY METHOD 04/04/2024 10:55 AM EST [facility] Parainfluenza Virus 1 Not Detected Not Detected LAB MICROBIOLOGY METHOD 04/04/2024 10:55 AM EST [facility] Parainfluenza Virus 2 Not Detected Not Detected LAB MICROBIOLOGY METHOD 04/04/2024 10:55 AM EST [facility] Parainfluenza Virus 3 Not Detected Not Detected LAB MICROBIOLOGY METHOD 04/04/2024 10:55 AM EST [facility] Parainfluenza Virus 4 Not Detected Not Detected LAB MICROBIOLOGY METHOD 04/04/2024 10:55 AM [facility] RSV PCR Not Detected Not Detected LAB MICROBIOLOGY METHOD 04/04/2024 10:55 AM EST [facility] Human Metapneumovirus A and B Not Detected Not Detected LAB MICROBIOLOGY METHOD 04/04/2024 10:55 AM EST [facility] Rhinovirus/Entero virus Not Detected Not Detected LAB MICROBIOLOGY METHOD 04/04/2024 10:55 AM EST [facility] Bordetella pertussis Not Detected Not Detected LAB MICROBIOLOGY METHOD 04/04/2024 10:55 AM EST [facility] Bordetella parapertussis Not Detected Not Detected LAB MICROBIOLOGY METHOD 04/04/2024 10:55 AM EST [facility] Mycoplasma pneumo by PCR Not Detected Not Detected LAB MICROBIOLOGY METHOD 04/04/2024 10:55 AM EST [facility] Chlamydia pneumoniae Not Detected Not Detected LAB MICROBIOLOGY METHOD 04/04/2024 10:55 AM [facility] SARS COV-2 Not Detected Not Detected LAB MICROBIOLOGY METHOD 04/04/2024 10:55 AM [facility] Swab Both anterior nares / Unknown Non-blood Collection / Unknown 04/04/2024 9:45 AM EST 04/04/2024 9:53 AM EST [facility] - 04/04/2024 10:55 AM EST Testing was performed using the [employer] Respiratory Pathogen PCR Assay. All results must [...] that are below the limit of detection. us Loren SUAREZ LAB MICROBIOLOGY - GENERAL ORDER ERAN Final Result [facility] [address] [place] [address], * Thyroid stimulating hormone with reflex to free t4 and free t3 (04/04/2024 9:19 AM EST) TSH 1.84 0.40 - 4.00 mcIU/mL LAB CHEMISTRY METHOD 04/04/2024 4:01 PM [facility] Blood Venous blood specimen / Unknown Venipuncture / Unknown 04/04/2024 9:19 AM EST 04/04/2024 9:53 AM EST Cynthia SUAREZ LAB BLOOD ORDERABLES Final Result [facility] [address] [place] [address], [place] [phone] * (ABNORMAL) CBC auto differential (04/04/2024 9:19 AM EST) Only the most recent of3 resultswithin the time period is included. WBC 8.4 4.8 - 10.8 K/mcL LAB HEMETOLOGY METHOD 04/04/2024 10:26 AM [facility] RBC 4.20 3.80 - 4.80 M/mcL LAB HEMETOLOGY METHOD 04/04/2024 10:26 AM [facility] Hemoglobin 12.8 11.5 - 16.0 g/dL LAB HEMETOLOGY METHOD 04/04/2024 10:26 AM [facility] Hematocrit 41.7 35.0 - 47.0 % LAB HEMETOLOGY METHOD 04/04/2024 10:26 AM [facility] MCV 98.8(H) 79.0 - 98.0 FL LAB HEMETOLOGY METHOD 04/04/2024 10:26 AM [facility] MCH 30.3 27.0 - 32.0 pcg LAB HEMETOLOGY METHOD 04/04/2024 10:26 AM [facility] MCHC 30.7(L) 32.0 - 37.0 g/dL LAB HEMETOLOGY METHOD 04/04/2024 10:26 AM [facility] RDW 14.2 11.0 - 15.0 % LAB HEMETOLOGY METHOD 04/04/2024 10:26 AM [facility] Platelets 298 130 - 400 K/mcL LAB HEMETOLOGY METHOD 04/04/2024 10:26 AM [facility] MPV 8.8 7.0 - 11.0 FL LAB HEMETOLOGY METHOD 04/04/2024 10:26 AM [facility] NRBC 0.0 <1.0 % LAB HEMETOLOGY METHOD 04/04/2024 10:26 AM [facility] NRBC Absolute 0.00 <0.10 K/mcL LAB HEMETOLOGY METHOD 04/04/2024 10:26 AM [facility] Neutrophils Relative 61.8 % LAB HEMETOLOGY METHOD 04/04/2024 10:26 AM [facility] Lymphocytes Relative 22.6 % LAB HEMETOLOGY METHOD 04/04/2024 10:26 AM [facility] Monocytes Relative 10.5 % LAB HEMETOLOGY METHOD 04/04/2024 10:26 AM [facility] Eosinophils Relative 2.0 % LAB HEMETOLOGY METHOD 04/04/2024 10:26 AM [facility] Basophils Relative 1.1 % LAB HEMETOLOGY METHOD 04/04/2024 10:26 AM [facility] Immature Granulocytes Relative 2.0 % LAB HEMETOLOGY METHOD 04/04/2024 10:26 AM [facility] Neutrophils Absolute 5.17 1.50 - 7.00 K/mcL LAB HEMETOLOGY METHOD 04/04/2024 10:26 AM [facility] Lymphocytes Absolute 1.89 1.00 - 5.00 K/mcL LAB HEMETOLOGY METHOD 04/04/2024 10:26 AM [facility] Monocytes Absolute 0.88 0.20 - 1.00 K/mcL LAB HEMETOLOGY METHOD 04/04/2024 10:26 AM EST [facility] Eosinophils Absolute 0.17 0.00 - 0.50 K/[facility] LAB HEMETOLOGY METHOD 04/04/2024 10:26 AM EST [facility] Basophils Absolute 0.09 0.00 - 0.20 K/[facility] LAB HEMETOLOGY METHOD 04/04/2024 10:26 AM EST [facility] Immature Granulocytes Absolute 0.17(H) 0.00 - 0.03 K/[facility] LAB HEMETOLOGY METHOD 04/04/2024 10:26 AM EST [facility] Blood Venous blood specimen / Unknown Venipuncture / Unknown 04/04/2024 9:19 AM EST 04/04/2024 9:53 AM EST Saray Darden LAB BLOOD ORDERABLES Elsa l Result Performing Organization Address City/[facility]/ZIP Co de Phone Number [facility] [address] [place] [address], [place] [phone] * Lactate (04/04/2024 9:19 AM EST) [facility] Lactate 1.0 0.4 - 2.0 mmol/L LAB CHEMISTRY METHOD 04/04/2024 10:28 AM EST [facility] Blood Venous blood specimen / Unknown Venipuncture / Unknown 04/04/2024 9:19 AM EST 04/04/2024 9:49 AM EST Saray Darden LAB BLOOD ORDERABLES Elsa l Result [facility] [address] [place] [address], [place] [phone] * (ABNORMAL) Venous blood gas (04/04/2024 9:19 AM EST) Pathologist [facility] pH, Thanh 7.43(H) 7.32 - 7.42 pH 04/04/2024 9:53 AM [facility] pCO2, Thanh 46 41 - 51 mmHg 04/04/2024 9:53 AM [facility] pO2, Thanh 43(H) 25 - 40 mmHg 04/04/2024 9:53 AM [facility] HCO3, Venous 28.3(H) 22.0 - 26.0 mmol/L 04/04/2024 9:53 AM [facility] O2 Sat, Thanh 75.4 % 04/04/2024 9:53 AM [facility] Base Excess, Thanh 5.2(H) -2.0 - 2.0 mmol/L 04/04/2024 9:53 AM [facility] Blood Venous blood specimen / Unknown Venipuncture / Unknown 04/04/2024 9:19 AM EST 04/04/2024 9:53 AM EST us Alvarez Eric Darden DO LAB BLOOD ORDERABLES Elsa l Result [facility] [address] [place] [address], * (ABNORMAL) Comprehensive metabolic panel (04/04/2024 9:19 AM EST) Sodium 142 133 - 145 mmol/L LAB CHEMISTRY METHOD 04/04/2024 11:12 AM [facility] Potassium 4.6 3.5 - 5.5 mmol/L LAB CHEMISTRY METHOD 04/04/2024 11:12 AM [facility] Chloride 107 96 - 110 mmol/L LAB CHEMISTRY METHOD 04/04/2024 11:12 AM [facility] CO2 29 21 - 32 mmol/L LAB CHEMISTRY METHOD 04/04/2024 11:12 AM [facility] Anion Gap 6 3 - 11 LAB CHEMISTRY METHOD 04/04/2024 11:12 AM [facility] Glucose 78 70 - 100 mg/dL LAB CHEMISTRY METHOD 04/04/2024 11:12 AM [facility] BUN 30(H) 5 - 25 mg/dL LAB CHEMISTRY METHOD 04/04/2024 11:12 AM [facility] Comment:Results verified by repeat testing Creatinine 0.52 0.50 - 1.10 mg/dL LAB CHEMISTRY METHOD 04/04/2024 11:12 AM [facility] eGFR 101 >=60 mL/min/1. 73m2 LAB CHEMISTRY METHOD 04/04/2024 11:12 AM [facility] Comment:Calculation based on the??Chronic Kidney Disease Epidemiology Collaboration (CKD-EPI) equation refit??without adjustment for race. BUN/Creatinine Ratio 57.7 LAB CHEMISTRY METHOD 04/04/2024 11:12 AM [facility] Calcium 9.3 8.5 - 10.5 mg/dL LAB CHEMISTRY METHOD 04/04/2024 11:12 AM [facility] AST (SGOT) 24 10 - 42 unit/L LAB CHEMISTRY METHOD 04/04/2024 11:12 AM [facility] ALT (SGPT) 45 10 - 60 unit/L LAB CHEMISTRY METHOD 04/04/2024 11:12 AM [facility] Alkaline Phosphatase 84 42 - 121 unit/L LAB CHEMISTRY METHOD 04/04/2024 11:12 AM [facility] Total Protein 6.7 6.0 - 8.0 g/dL LAB CHEMISTRY METHOD 04/04/2024 11:12 AM [facility] Albumin 3.1(L) 3.2 - 5.0 g/dL LAB CHEMISTRY METHOD 04/04/2024 11:12 AM [facility] Total Bilirubin 0.7 0.0 - 1.4 mg/dL LAB CHEMISTRY METHOD 04/04/2024 11:12 AM [facility] Blood Venous blood specimen / Unknown Venipuncture / Unknown 04/04/2024 9:19 AM EST 04/04/2024 9:53 AM EST Saray Darden DO LAB BLOOD ORDERABLES Elsa l Result Performing Organization Address [facility] de Phone Number [facility] ([facility]) [facility] [address] [place] [address], [place] [phone] * ECG 12 lead (04/04/2024 9:10 AM EST) Only the most recent of2 resultswithin the time period is included. Ventricular Rate ECG 86 BPM GEMUSE Atrial Rate 86 BPM GEM[facility] P-R Interval 106 ms GEM[facility] QRS Duration 80 ms GEMUSE Q-T Interval 340 ms GEMUSE QTc 406 ms GEMUSE R [place] 53 degrees GEMUSE T [place] 60 degrees GEMUSE ECG Interpretation Sinus rhythm When compared with ECG of 24-MAR-2024 15:56, No significant change was found Confirmed by EDIL ARAIZA ([id number]) on 04/04/2024 8:07:00 PM [facility] 04/04/2024 9:10 AM EST 04/04/2024 8:07 PM EST Saray Darden DO ECG ORDERABLES Final Res ult Performing Organization Address [facility] Phone Number GEM[facility] * XR Chest 2 Views (04/04/2024 8:55 AM EST) Only the most recent of2 resultswithin the time period is included. Anatomical Region Laterality Modality Body Radiographic Lesley ging 04/04/2024 8:59 AM EST Impressions 04/04/2024 9:08 AM EST FINDINGS/IMPRESSION: Postsurgical changes at the right hilum and in the right suprahilar region, unchanged. ??Scarring at the right lung base is unchanged. ??No pneumonia, pleural effusion, or pneumothorax. ??Cardiac silhouette and bones are stable. -------- FINAL REPORT -------- Dictated By: DARNELL BOOKER Dictated Date: 04/04/2024 08:59 ET Assigned Physician: DARNELL BOOKER Reviewed and Electronically Signed By: DARNELL BOOKER Signed Date: 04/04/2024 09:08 ET Workstation ID: [id number] Transcribed By: Self Edit Transcribed Date: 04/04/2024 08:59 ET Narrative 04/04/2024 9:08 AM EST XR CHEST 2 VIEWS INDICATION: ??Cough TECHNIQUE: XR CHEST 2 VIEWS COMPARISON: 03/24/2024 Procedure Note Darnell Booker MD - 04/04/2024 XR CHEST 2 VIEWS INDICATION: Cough TECHNIQUE: XR CHEST 2 VIEWS COMPARISON: 03/24/2024 IMPRESSION: FINDINGS/IMPRESSION: Postsurgical changes at the right hilum and in theright suprahilar region, unchanged. Scarring at the right lung base isunchanged. No pneumonia, pleural effusion, or pneumothorax. Cardiacsilhouette and bones are stable. -------- FINAL REPORT -------- Dictated By: DARNELL BOOKER Dictated Date: 04/04/2024 08:59 ET Assigned Physician: DARNELL BOOKER Reviewed and Electronically Signed By: DARNELL BOOKER Signed Date: 04/04/2024 09:08 ET Workstation ID: [id number] Transcribed By: Self Edit Transcribed Date: 04/04/2024 08:59 ET us Saray Darden DO IMG XR PROCEDURES Final R esult * ECG-Outside (03/26/2024) us Provider Onbase ECG ORDERABLES Final Result * (ABNORMAL) Culture sputum (03/25/2024 8:26 AM EST) Culture, Sputum No pathogens isolated. 03/29/2024 9:41 AM EST [facility] Gram Stain Result >25 WBCs, 10-25 Epithelials - Acceptable for Culture(A) 03/29/2024 9:41 AM EST [facility] Gram Stain Result Many Polymorphonuclear leukocytes(A) 03/29/2024 9:41 AM EST [facility] Gram Stain Result Moderate Epithelial cells(A) 03/29/2024 9:41 AM EST [facility] Gram Stain Result Moderate Gram positive bacilli(A) 03/29/2024 9:41 AM EST [facility] Gram Stain Result Moderate Gram positive cocci in pairs and chains(A) 03/29/2024 9:41 AM EST [facility] Gram Stain Result Few Gram negative bacilli(A) 03/29/2024 9:41 AM EST [facility] Sputum, expectorated Oropharyngeal structure / Unknown 03/25/2024 8:26 AM EST 03/25/2024 8:39 AM EST Kemi Rivero NP LAB MICROBIOLOGY - GENER AL ORDERABLES Final Result [facility] [address] [place] [address], * Streptococcus pneumoniae antibodies, IgG, 23 serotypes (03/25/2024 6:02 AM EST) Serotype 1 (1) 0.6 >=1.0 mcg/mL 04/02/2024 [...] Interpretation SEE BELOW 04/02/2024 11:45 AM EST [facility] Comment: Overall interpretation of pneumococcal antibody [...] developed and its performance characteristics determined by [facility] in a manner consistent with CLIA requirements. This test has not been cleared or approved by the U.S. Food and Drug Administration. Test Performed by: [facility] [place] [address] Dry Cell Sealer: Erin Nicole Ph.D.; CLIA# [id number] Blood Venous blood specimen / Unknown Venipuncture / Unknown 03/25/2024 6:02 AM EST 03/25/2024 6:33 AM EST us Kemi Rivero NP LAB BLOOD ORDERABLES Fin al Result [facility] [address] [place] [address] * Legionella antigen urine, EIA (03/24/2024 11:09 PM EST) [facility] Legionella Antigen, Ur Negative Negative 03/25/2024 12:53 AM EST [facility] Urine Urine specimen from urethra / Unknown Non-blood Collection / Unknown 03/24/2024 11:09 PM EST 03/24/2024 11:49 PM EST Narrative [facility] - 03/25/2024 12:53 AM EST Negative for Legionella pneumophilia serogroup 1 antigen. This presumptive result suggests no current or recent infection due to L. pneumophilia serogroup 1. Culture is recommended if Legionella infection is till suspected, as other serogroups and species of Legionella are not detected by this test. Kemi Rivero NP LAB URINE ORDERABLES Fin al Result Performing Organization Address City/[facility]/ZIP Co de Phone Number [facility] [address] [place] [address], [place] [phone] * Lactate, with Reflex (03/24/2024 8:23 PM EST) LACTIC ACID 0.8 0.4 - 2.0 mmol/L LAB CHEMISTRY METHOD 03/24/2024 9:05 PM EST [facility] Blood Venous blood specimen / Unknown Venipuncture / Unknown 03/24/2024 8:23 PM EST 03/24/2024 8:28 PM EST Loren SUAREZ LAB BLOOD ORDERABLES Final Resul t Performing Organization Address [facility]/ZIP Co de Phone Number [facility] [address] [place] [address], [place] [phone] * Troponin I high sensitivity (03/24/2024 7:11 PM EST) Only the most recent of2 resultswithin the time period is included. High Sensitivity Troponin I <3 <=54 ng/L LAB CHEMISTRY METHOD 03/24/2024 8:13 PM EST [facility] Blood Venous blood specimen / Unknown Venipuncture / Unknown 03/24/2024 7:11 PM EST 03/24/2024 7:45 PM EST Narrative [facility] - 03/24/2024 8:13 PM EST High levels of biotin in samples may falsely decrease hsTroponin values. ??Use caution when interpreting hsTroponin results in patients taking biotin who exhibit renal impairment (eGFR <60) or in patients taking more than 20 mg/day of biotin. us Loren SUAREZ LAB BLOOD ORDERABLES Final Resul t [facility] [address] [place] [address], [place] [phone] from Last 3 Months Insurance MEDICARE MEDICAID - [place] Advance Directives * Full Code - Default (Latest Code Status on File) Date Activated Date Inactivated Comments 04/04/2024 12:40 PM 04/07/2024 3:26 PM This is orde r is used when code status has not been discussed with the patient, or code status is otherwise unknown/unconfirmed To update the patient's code status, place a code status order. Do not modify or discontinue any currently active code status orders. * Full Code - Confirmed Date Activated Date Inactivated Comments 03/24/2024 10:10 PM 03/25/2024 6:01 PM This code s tatus was ascertained in the following way: Code status discussion: discussion with patient To update the patient's code status, place a code status order. Do not modify or discontinue any currently active code status orders. * Full Code - Default Date Activated Date Inactivated Comments 03/24/2024 8:51 PM 03/24/2024 10:10 PM This is ord er is used when code status has not been discussed with the patient, or code status is otherwise unknown/unconfirmed To update the patient's code status, place a code status order. Do not modify or discontinue any currently active code status orders. Care Teams Greenhouse Worker Relationship Specialty Start Date End Date Donna Romero MD [address] [place] [address] PCP - General Internal Medicine 10/30/18
--- OUTSIDE RECORDS SUMMARY | 2024-04-12 12:12 | XMS_ITS | Encounter Summary ---
Author Organization [facility] Address [address] [place] [address] Care Team Providers Care Compliance Associate Name Role Phone Donna Romero MD Primary Care Provider [phone] Reason for Visit * Reason Comments Shortness of Breath D/c on 03/25 with PNA , chest xray ? Fluid in lungs * Auth/Cert (Routine) Specialty Diagnoses / Procedures Referred By Contthomas t Referred To Contact Diagnoses Hypotension Procedures [facility] IP[facility]OBS CARE ADMIT/DISCHARGE SAME DATE MODERATE LEVEL Demarco Hunter MD [address] [place], [place] [id number] Phone: tel: fax: [facility] Emergency [address] [place] [address] Phone: tel: Referral ID Status Reason Start Date Expiration Date Visits Re quested Visits Authorized [id number] 1 1 Encounter Details Date Type Department Care Team (Late st Contact Info) Description 04/04/2024 8:25 AM EST - 04/07/2024 1:21 PM EST Emergency [facility] Intermediate Care Unit [address] [place] [address] Saray Darden DO [address] [place] [address] Adam Hart MD [address] [place] [address] Demarco Hunter MD [address] [place] [address] Piyush Hallman MD [address] [place] [address] COPD exacerbation (CMS/HCC) (Primary Dx); Hypotension, unspecified hypotension type Discharge Disposition: Home or Self Care Social [...] care for your loved ones. For example, children librarian or elderly care for an older adult? [...] Sign Reading Time Taken Comments Blood Pressure 94/71 04/07/2024 11:50 AM EST Pulse 79 04/07/2024 11:50 AM EST Temperature 36.7 ??C (98.1 ??F) 04/07/2024 11:[address] Respiratory Rate 15 04/07/2024 8:38 AM EST Oxygen Saturation 97% 04/07/2024 11:50 AM EST Inhaled Oxygen Concentration - - Weight 38.2 kg (84 lb 3.5 oz) 04/06/2024 11:02 A M EST Height 149.9 cm (4' 11.02 ) 04/06/2024 11:06 AM EST Body Mass Index 17 04/06/2024 11:02 AM EST documented in this encounter Discharge Summaries * Nandini Bautista RN - 04/07/2024 12:27 PM EST If concerning symptoms present call your pcp or return to the emergency department. Continue to take medications as prescribed. Continue to attend appointments as scheduled. Please make a Post Hospital Follow Up appointment with your pcp. * Piyush Hallman MD - 04/07/2024 11:48 AM EST Images from the original note were not included. HOSPITAL MEDICINE DISCHARGE SUMMARY Patient Information Jamila Ramírez : 1955 [68 y.o.] Admitting Provider Demarco Hunter MD Discharge Provider Piyush Hallman MD Primary Care Physician Donna Romero MD Admission Date 04/04/2024 Discharge Date 04/07/2024 Summary of Hospital Problems Primary Discharge Diagnosis: Weakness generalized Secondary Discharge Diagnosis: COPD exacerbation Discharge Disposition Home or Self Care Code Status at Discharge: Full Code - Default Hospital Course Summary Presenting Problem/History of Present Illness Hypotension [I95.9] COPD exacerbation ([facility]) [J44.1] Hypotension, unspecified hypotension type [I95.9] Chief Complaint Patient presents with Shortness of Breath D/c on 03/25 with PNA, chest xray ? Fluid in lungs HPI 68-year-old female with a history of COPD on 2 L nocturnal O2, lung cancer status post right upper lobectomy, GERD, depression, hyperlipidemia, osteoporosis who presented to the ED from urgent care due to increased weakness with concern for recurrent pneumonia. Her daughter, Emilee, at bedside assists with history. She reports she was recently admitted to our facility mid March when she was treated for pneumonia and COPD and then discharged home with antibiotics and steroids which she completed. She states the day following completion of prednisone taper she began to have increased SOB withexertion, cough and phelgm/mucous production. Over the past few days has been increasingly weak. She ultimately went to urgent care today where a chest xray was performed with reported concern for pneumonia and she was encouraged to come to the ED for further evaluation. She denies any fevers, chills, dysuria, back pain. States appetite has been okay. She moved her bowels this morning and denies any issues with urination. Upon arrival to the ED temperature 36.5 pulse 88 RR 22 BP 82/68 SpO2 95% on room air. Lab workup was relatively unremarkable. Respiratory viral panel negative. UA does not appear infected. EKG showednormal sinus rhythm with short GA, no significant change from prior, 86 bpm. Chest x-ray showed no surgical changes at the right hilum and in the right suprahilar region which are unchanged and scarring of the right lung base which is unchanged with no pneumonia, pleural effusion or pneumothorax. Chest CTA was negative for PE or other acute findings in the chest and actually appeared improved in terms of bronchitis and bronchiolitis compared to prior imaging. It also showed a small hiatal hernia with circumferential thickening of the esophagus concerning for reflux esophagitis and unchanged scattered pulmonary nodules and emphysema. Blood cultures were obtained. In the ED she received 1500 mL IV fluid, DuoNeb, 125 mg IV Solu-Medrol, vancomycin, ceftriaxone and 25 g of albumin and she was admitted to the medical service for further management. Hospital Course Jamila Ramírez is a 68 y.o. 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 Recent admission 03/24-03/25 for COPD exacerbation and multifocal pneumonia. Patient now returned to EDdue to increased shortness of breath, increased nonproductive coughing, generalized weakness worse after she finished prednisone taper. Patient admitted for hypotension and COPD exacerbation. 1. Chronic respiratory failure with hypoxia Today patient was comfortable on room air. Usual oxygen requirement of 2 L/min. 2. COPD with exacerbation Patient no longer wheezing. Patient has outpatient follow up with rn telephonic. Continue with albuterol, Trelegy, Azithromycin and prednisone taper. May be a candidate for Daliresp, will defer to rn telephonic. CT chest shows no acute findings, no evidence of pneumonia. Procalcitonin was normal. 3. Hypotension-resolved Patient was having borderline low blood pressures. Started on midodrine. Recommend outpatient bloodpressure monitoring and follow-up with primary care provider. 4. Acute gastroenteritis-resolved Patient had vomit and diarrhea x 1 day. Symptoms improved and she was able to tolerate diet prior to discharge. 5. Lung nodules CT shows stable lung nodules. Needs to continue outpatient follow-up. 6. Generalized weakness Physical therapy recommended home discharge. Operative Procedures Performed: Consults: none LABS/IMAGING CT Angio Chest wo and/or w Contrast Result Date: 04/04/2024 PROCEDURE: Chest CTA INDICATION: Shortness of breath, hypotension TECHNIQUE: Chest CTA with intravenous administration of 90cc ISOVUE-370. Multi planar reformats were created and interpreted. The examination was performed utilizing dose reduction techniques.3-D or MIP images were produced with postprocessing on an independent computer workstation. Total DLP 153 COMPARISON: 03/24/2024 FINDINGS: LUNGS/PLEURA: Central airways are patent. Right upper lobectomy. Scattered mucous plugging seen in thelower lobe airways. Scarring in the right middle and lower lobes, unchanged. Cystic scarring in theright lower lobe is unchanged. Resolved bronchial wall thickening and centrilobular nodularity. No p leural effusion or pneumothorax. New subpleural nodule in the left lower lobe, likely inflammatory.Unchanged groundglass nodule in the left upper lobe measuring 15 mm. Emphysema. No consolidation. MEDIASTINUM: No pulmonary arterial emboli. Thoracic aorta is normal in size. Small hiatal hernia with circumferential thickening of the esophagus. Thyroid gland is normal. No mediastinal or hilar lymphadenopathy. Low density within the anterior mediastinum is unchanged. Cardiac chambers are normal insize. No pericardial effusion. Mild coronary artery calcifications. CHEST WALL: No axillary lymphade nopathy or superficial hematoma. UPPER ABDOMEN:The visualized portions of the upper abdomen are unremarkable. BONES: No acute fracture. Scattered degenerative changes seen throughout the bones. No pulmonary arterial emboli. No acute findings in the chest. Improved infectious or inflammatory bronchitis and bronchiolitis. Small hiatal hernia with circumferential thickening of the esophagus. Correlate for reflux esophagitis. Endoscopy could evaluate further. Unchanged scattered pulmonary nodules and emphysema. Recommend enrolling in annual lung cancer screening chest CT program. -------- FINAL REPORT -------- Dictated By: DARNELL BOOKER Dictated Date: 04/04/2024 10:27 ET Assigned Physician: DARNELL BOOKER Reviewed and Electronically Signed By: DARNELL BOOKER Signed Date: 04/04/2024 10:57 ET Worksta tion ID: [id number] Transcribed By: Self Edit Transcribed Date: 04/04/2024 10:27 ET XR Chest 2 Views Result Date: 04/04/2024 XR CHEST 2 VIEWS INDICATION: Cough TECHNIQUE: XR CHEST 2 VIEWS COMPARISON: 03/24/2024 FINDINGS/IMPRESSION: Postsurgical changes at the right hilum and in the right suprahilar region, unchanged. Scarring at the right lung base is unchanged. No pneumonia, pleural effusion, or pneumothorax. Cardiac silhouette and bones are stable. -------- FINAL REPORT -------- Dictated By: DARNELL BOOKER Dictated Date: 04/04/2024 08:59 ET Assigned Physician: DARNELL BOOKER Reviewed and Electronically SignedBy: DARNELL BOOKER Signed Date: 04/04/2024 09:08 ET Workstation ID: [id number] Transcribed By: Self Edit Transcribed Date: 04/04/2024 08:59 ET No results found for: INR , PROTIME Lab Results Component Value Date NA 139 04/07/2024 K 3.6 04/07/2024 CL 107 04/07/2024 CO2 27 04/07/2024 GLUCOSE 100 04/07/2024 BUN 16 04/07/2024 CREATININE 0.35 (L) 04/07/2024 CALCIUM 7.3 (L) 04/07/2024 PROT 6.7 04/04/2024 ALBUMIN 3.1 (L) 04/04/2024 BILITOT 0.7 04/04/2024 AST 24 04/04/2024 ALT 45 04/04/2024 PHOS 2.6 04/05/2024 MG 1.7 (L) 04/07/2024 ALKPHOS 84 04/04/2024 EGFR 111 04/07/2024 Lab Results Component Value Date WBC 8.4 04/04/2024 HGB 12.8 04/04/2024 HCT 41.7 04/04/2024 MCV 98.8 (H) 04/04/2024 PLT 298 04/04/2024 Discharge Medications Your medication list START taking these medications Instructions Last Dose Given Next Dose Due guaiFENesin 600 mg 12 hr tablet Commonly known as: MUCINEX Take 1 tablet (600 mg total) by mouth every 12 (twelve) hours for 10 days. Do not crush, chew, or split. magnesium oxide 400 mg (241.3 elemental magnesium) tablet Commonly known as: MAG-OX Take 1 tablet (400 mg total) by mouth 2 (two) times a day. midodrine 5 mg tablet Commonly known as: PROAMATINE Take 1 tablet (5 mg total) by mouth 3 (three) times a day before meals. CHANGE how you take these medications Instructions Last Dose Given Next Dose Due atorvastatin 10 mg tablet Commonly known as: LIPITOR What changed: Another medication with the same name was changed. Make sure you understand how and when to take each. Take 1 tablet (10 mg total) by mouth 1 (one) time each day. atorvastatin 10 mg tablet Commonly known as: LIPITOR What changed: medication strength See the new instructions. Take 1 tablet (10 mg total) by mouth at bedtime. azithromycin 250 mg tablet Commonly known as: ZITHROMAX What changed: medication strength how much to take when to take this Take 1 tablet (250 mg total) by mouth 1 (one) time each day for 6 doses. predniSONE 20 mg tablet Commonly known as: DELTASONE Start taking on: April 06, 2024 What changed: medication strength See the new instructions. Take 2 tablets (40 mg total) by mouth 1 (one) time each day for 3 days, THEN 1.5 tablets (30 mg total) 1 (one) time each day for 3 days, THEN 1 tablet (20 mg total) 1 (one) time each day for 3 days, THEN 0.5 tablets (10 mg total) 1 (one) time each day for 3 days. CONTINUE taking these medications Instructions Last Dose Given Next Dose Due benzonatate 200 mg capsule Commonly known as: TESSALON Take 1 capsule (200 mg total) by mouth 3 (three) times a day if needed for cough. for 7 days Evenity Generic drug: romosozumab-aqqg Inject 2.34 mL (210 mg total) under the skin every 30 (thirty) days. ipratropium-albuteroL 0.5-2.5 mg/3 mL nebulizer solution Commonly known as: DUONEB Take 3 mL by nebulization 4 (four) times a day if needed for wheezing or shortness of breath for upto 7 days. nabumetone 500 mg tablet Commonly known as: RELAFEN Take 1 tablet (500 mg total) by mouth 2 (two) times a day. omeprazole [address] capsule Commonly known as: PriLOSEC Take 1 capsule (20 mg total) by mouth 1 (one) time each day. Oxygen Therapy gas Commonly known as: O2 Inhale into the lungs. Oxygen Historical (HISTORICAL OXYGEN) Trelegy Ellipta 100-62.5-25 mcg inhaler Generic drug: hhvdjkhhwwf-yxamftqlnbwf-omftssjecu Inhale 1 puff (100 mcg total) by mouth 1 (one) time each day. STOP taking these medications cefpodoxime 200 mg tablet Commonly known as: VANTIN doxycycline 100 mg capsule Commonly known as: VIBRAMYCIN Where to Get Your Medications These medications were sent to [id number] - [place] - [address] [facility] [address] [place] [address] azithromycin 250 mg tablet guaiFENesin 600 mg 12 hr tablet magnesium oxide 400 mg (241.3 elemental magnesium) tablet midodrine 5 mg tablet predniSONE 20 mg tablet Information about where to get these medications is not yet available Ask your nurse or doctor about these medications atorvastatin 10 mg tablet Follow-Up Instructions and Recommendations No follow-up provider specified. No discharge procedures on file. There are no outpatient Patient Instructions on file for this admission. Outpatient Follow-Up Future Appointments Date Time Provider Department Center 04/12/2024 8:30 AM Ana Flaherty MD [facility] @[facility]@ Test Results Pending at Discharge Pending Labs Order Current Status Blood Culture, Peripheral #1 Preliminary result Blood Culture, Peripheral #2 Preliminary result Physical Exam at time of Discharge Vitals Visit Vitals BP 89/65 (BP Location: Left arm, Patient Position: Lying) Pulse 79 Temp 36.7 ??C (98.1 ??F) (Temporal) Resp 15 Temp (24hrs), Av.7 ??C (98.1 ??F), Min:36.4 ??C (97.5 ??F), Max:36.9 ??C (98.4 ??F) Body mass index is 17 kg/m??. No results found for: PTWT , PTHT Physical Exam Vitals and nursing note reviewed. Constitutional: General: She is not in acute distress. Appearance: She is not toxic-appearing. HENT: Head: Normocephalic and atraumatic. Nose: Nose normal. Mouth/Throat: Mouth: Mucous membranes are moist. Eyes: Extraocular Movements: Extraocular movements intact. Pupils: Pupils are equal, round, and reactive to light. Cardiovascular: Rate and Rhythm: Normal rate and regular rhythm. Heart sounds: No murmur heard. Pulmonary: Effort: No respiratory distress. Breath sounds: No wheezing or rales. Abdominal: General: There is no distension. Palpations: Abdomen is soft. There is no mass. Tenderness: There is no abdominal tenderness. Skin: General: Skin is warm and dry. Neurological: General: No focal deficit present. Mental Status: She is alert. Mental status is at baseline. I spoke with the patient and daughter regarding the discharge plan. The discharge plan was discussed with case management and nursing staff. Patient verbalized understanding and was agreeable with the discharge plan. Total Time Spent on Discharge Process: Greater than 30 minutes. Time was spent educating patient, making a comprehensive discharge plan, discussion with staff regarding the discharge plan, medication reconciliation and discharge summary. Piyush Hallman MD 04/07/2024 11:50 AM EST documented in this encounter Discharge Instructions * Attachments The following attachments cannot be sent through Care Everywhere. * COPD Exacerbation Plan (Frisian) documented in this encounter Medications at Time of Discharge atorvastatin (LIPITOR) 10 mg tablet Take 1 tablet (10 mg total) by mouth at bedtime. 04/05/2024 azithromycin (ZITHROMAX) 250 mg tablet Take 1 tablet (250 mg total) by mouth 1 (one) time each day for 6 doses. 6 each 04/06/2024 5 benzonatate (TESSALON) 200 mg capsule Take 1 capsule (200 mg total) by mouth 3 (three) times a day if needed for cough. for 7 days 04/03/2024 guaiFENesin (MUCINEX) 600 mg 12 hr tablet Take 1 tablet (600 mg total) by mouth every 12 (twelve) hours for 10 days. Do not crush, chew, or split. 20 each 04/06/2024 5 magnesium oxide (MAG-OX) 400 mg (241.3 elemental magnesium) tablet Take 1 tablet (400 mg total) by mouth 2 (two) times a day. 60 each 04/07/2024 5 midodrine (PROAMATINE) 5 mg tablet Take 1 tablet (5 mg total) by mouth 3 (three) times a day before meals. 90 each 04/07/2024 5 nabumetone (RELAFEN) 500 mg tablet Take 1 tablet (500 mg total) by mouth 2 (two) times a day. omeprazole (PriLOSEC) [address] capsule Take 1 capsule (20 mg total) by mouth 1 (one) time each day. 09/23/2023 Oxygen Therapy (O2) gas Inhale into the lungs. Oxygen Historical (HISTORICAL OXYGEN) predniSONE (DELTASONE) 20 mg tablet Take 2 [...] each day for 3 days. 15 each 04/06/2024 5 romosozumab-aqqg (Evenity) Inject 2.34 mL (210 mg total) under the skin every 30 (thirty) days. fluticasone-umec lidinium-vilante rol (Trelegy Ellipta) 100-62.5-25 mcg inhaler Inhale 1 puff (100 mcg total) by mouth 1 (one) time each day. 5 documented as of this encounter Ordered Prescriptions Prescription Sig Dispense Quantity Refills Last Filled Start Date End Date midodrine (PROAMATINE) 5 mg tablet Take 1 tablet (5 mg total) by mouth 3 (three) times a day before meals. 90 each 04/07/2024 5 magnesium oxide (MAG-OX) 400 mg (241.3 elemental magnesium) tablet Take 1 tablet (400 mg total) by mouth 2 (two) times a day. 60 each 04/07/2024 5 predniSONE (DELTASONE) 20 mg tablet Take 2 [...] each day for 3 days. 15 each 04/06/2024 5 azithromycin (ZITHROMAX) 250 mg tablet Take 1 tablet (250 mg total) by mouth 1 (one) time each day for 6 doses. 6 each 04/06/2024 5 guaiFENesin (MUCINEX) 600 mg 12 hr tablet Take 1 tablet (600 mg total) by mouth every 12 (twelve) hours for 10 days. Do not crush, chew, or split. 20 each 04/06/2024 5 atorvastatin (LIPITOR) 10 mg tablet Take 1 tablet (10 mg total) by mouth at bedtime. 04/05/2024 documented in this encounter Discharge Disposition Disposition Code Departure Means Destination Home or Self Care documented in this encounter Progress Notes * Elaine Red RN - 04/07/2024 12:38 PM EST Goals: Identify possible barriers to meeting goals/advancing plan of care: Stability of the patient: Moderately Stable - Low risk of patient condition declining or worsening End of Shift Summary: * Natalee Patel RN - 04/07/2024 12:18 PM EST 04/07/24 1218 Initial Transition Plan Initial Transition Plan Home Transportation Transportation at discharge Family What day is the transport expected? 04/07/24 Medically cleared for discharge home no services.Family to transport. * Mary Ellen Lamb RN - 04/06/2024 4:35 PM EST GEM: 04/07 Barrier: clinical improvement/MD clearance Plan: home self-care vs home with VNA (if needed) * Piyush Hallman MD - 04/06/2024 1:44 PM EST Images from the original note were not included. [facility] PROGRESS NOTE Date: 04/06/2024 Author: Piyush Hallman MD Patient ID: Jamila Ramírez is a 68 y.o. female : 1955 MR#: [id number] ASSESSMENT & PLAN Assessment/Plan Principal Problem: Weakness generalized Active Problems: COPD exacerbation ([facility]) Hypotension Jamila Ramírez is a 68 y.o. 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 Recent admission 03/24-03/25 for COPD exacerbation and multifocal pneumonia. Patient now returned to [facility] to increased shortness of breath, increased nonproductive coughing, generalized weakness worse after she finished prednisone taper. Patient admitted for hypotension and COPD exacerbation. 1. Chronic respiratory failure with hypoxia Today patient was comfortable on room air. Usual oxygen requirement of 2 L/min. 2. COPD with exacerbation Patient no longer wheezing. Will continue with albuterol, revefenacin, budesonide and formoterol. Azithromycin and prednisone [address] chest shows no acute findings, no evidence of pneumonia. Procalcitonin was normal. 3. Hypotension-resolved Patient has not required any further midodrine doses. Can transfer off telemetry. 4. Acute gastroenteritis Patient complained of nausea, vomit and diarrhea overnight. Will continue gentle IV hydration, willadd Zofran for nausea and vomiting. 5. Lung nodules CT shows stable lung nodules. Needs to continue outpatient follow-up. 6. Generalized weakness PT recommended home discharge. SUBJECTIVE Subjective No events overnight. Telemetry showed sinus rhythm. Patient complained of vomit and diarrhea overnight. She denied chest pain, shortness of breath, fever, chills. Allergies Patient has no known allergies. Current Medications: atorvastatin, 40 mg, oral, Nightly azithromycin, 250 mg, oral, Daily formoterol, 20 mcg, nebulization, BID And budesonide, 0.5 mg, nebulization, Daily And revefenacin, 175 mcg, nebulization, Daily enoxaparin, 30 mg, subcutaneous, q24h LEONARDO guaiFENesin, 600 mg, oral, q12h LEONARDO influenza quadrivalent (6 mos and Up), 0.5 mL, intramuscular, During hospitalization magnesium oxide, 400 mg, oral, Daily pantoprazole, 40 mg, oral, q AM AC predniSONE, 40 mg, oral, Daily PRN medications: acetaminophen, albuterol, midodrine OBJECTIVE Vitals: 04/06/24 0848 04/06/24 1102 04/06/24 1106 04/06/24 1124 BP: 99/72 BP Location: Left arm Patient Position: Lying Pulse: 81 Resp: 20 Temp: 36.7 ??C (98.1 ??F) TempSrc: Oral SpO2: (S) 94% 97% Weight: (!) 38.2 kg (84 lb 3.5 oz) Height: 1.499 m (59.02 ) 1.499 m (59.02 ) Physical Exam Vitals and nursing note reviewed. Constitutional: General: She is not in acute distress. Appearance: She is not toxic-appearing. HENT: Head: Normocephalic and atraumatic. Nose: Nose normal. Mouth/Throat: Mouth: Mucous membranes are moist. Eyes: Extraocular Movements: Extraocular movements intact. Pupils: Pupils are equal, round, and reactive to light. Cardiovascular: Rate and Rhythm: Normal rate and regular rhythm. Heart sounds: No murmur heard. Pulmonary: Effort: No respiratory distress. Breath sounds: No wheezing or rales. Abdominal: General: There is no distension. Palpations: Abdomen is soft. There is no mass. Tenderness: There is no abdominal tenderness. Skin: General: Skin is warm and dry. Neurological: General: No focal deficit present. Mental Status: She is alert. Mental status is at baseline. LABS HEMATOLOGY Lab Results Component Value Date WBC 8.4 04/04/2024 HGB 12.8 04/04/2024 HCT 41.7 04/04/2024 MCV 98.8 (H) 04/04/2024 PLT 298 04/04/2024 CHEMISTRY Lab Results Component Value Date GLUCOSE 131 (H) 04/05/2024 NA 142 04/05/2024 K 4.0 04/05/2024 CO2 25 04/05/2024 CL 110 04/05/2024 BUN 19 04/05/2024 CREATININE 0.43 (L) 04/05/2024 EGFR 105 04/05/2024 CALCIUM 8.1 (L) 04/05/2024 MG 1.7 (L) 04/05/2024 PHOS 2.6 04/05/2024 ANIONGAP 7 04/05/2024 Recent Results (from the past week) Respiratory virus panel molecular study Collection Time: 04/04/24 9:45 AM Specimen: Nares; Swab Result Value Ref Range Adenovirus Detection by PCR Not Detected Not Detected Influenza A PCR Not Detected Not Detected Influenza B PCR Not Detected Not Detected Coronavirus 229E Not Detected Not Detected Coronavirus HKU1 Not Detected Not Detected Coronavirus OC43 Not Detected Not Detected Coronavirus NL63 Not Detected Not Detected Parainfluenza Virus 1 Not Detected Not Detected Parainfluenza Virus 2 Not Detected Not Detected Parainfluenza Virus 3 Not Detected Not Detected Parainfluenza Virus 4 Not Detected Not Detected RSV PCR Not Detected Not Detected Human Metapneumovirus A and B Not Detected Not Detected Rhinovirus/Enterovirus Not Detected Not Detected Bordetella pertussis Not Detected Not Detected Bordetella parapertussis Not Detected Not Detected Mycoplasma pneumo by PCR Not Detected Not Detected Chlamydia pneumoniae Not Detected Not Detected SARS COV-2 Not Detected Not Detected Culture urine Collection Time: 04/04/24 9:52 AM Specimen: Urine, Clean Catch Result Value Ref Range Culture, Urine No growth Blood Culture, Peripheral #1 Collection Time: 04/04/24 10:19 AM Specimen: Blood, Venous Result Value Ref Range Culture, Blood No growth at 2 days Blood Culture, Peripheral #2 Collection Time: 04/04/24 10:19 AM Specimen: Blood, Venous Result Value Ref Range Culture, Blood No growth at 2 days Imaging: CT Angio Chest wo and/or w Contrast Narrative: PROCEDURE: Chest CTA INDICATION: Shortness of breath, hypotension TECHNIQUE: Chest CTA with intravenous administration of 90cc ISOVUE-370. Multi planar reformats were created and interpreted. The examination was performed utilizing dose reduction techniques.3-D or MIP images were produced with postprocessing on an independent computer workstation. Total DLP 153 COMPARISON: 03/24/2024 FINDINGS: LUNGS/PLEURA: Central airways are patent. Right upper lobectomy. Scattered mucous plugging seen in the lower lobe airways. Scarring in the right middle and lower lobes, unchanged. Cystic scarring in the right lower lobe is unchanged. Resolved bronchial wall thickening and centrilobular nodularity. No pleural effusion or pneumothorax. New subpleural nodule in the left lower lobe, likely inflammatory. Unchanged groundglass nodule in the left upper lobe measuring 15 mm. Emphysema. No consolidation. MEDIASTINUM: No pulmonary arterial emboli. Thoracic aorta is normal in size. Small hiatal hernia with circumferential thickening of the esophagus. Thyroid gland is normal. No mediastinal or hilar lymphadenopathy. Low density within the anterior mediastinum is unchanged. Cardiac chambers are normal in size. No pericardial effusion. Mild coronary artery calcifications. CHEST WALL: No axillary lymphadenopathy or superficial hematoma. UPPER ABDOMEN:The visualized portions of the upper abdomen are unremarkable. BONES: No acute fracture. Scattered degenerative changes seen throughout the bones. Impression: No pulmonary arterial emboli. No acute findings in the chest. Improved infectious or inflammatory bronchitis and bronchiolitis. Small hiatal hernia with circumferential thickening of the esophagus. Correlate for reflux esophagitis. Endoscopy could evaluate further. Unchanged scattered pulmonary nodules and emphysema. Recommend enrolling in annual lung cancer screening chest CT program. -------- FINAL REPORT -------- Dictated By: DANRELL BOOKER Dictated Date: 04/04/2024 10:27 ET Assigned Physician: DARNELL BOOKER Reviewed and Electronically Signed By: DARNELL BOOKER Signed Date: 04/04/2024 10:57 ET Workstation ID: [id number] Transcribed By: Self Edit Transcribed Date: 04/04/2024 10:27 ET XR Chest 2 Views Narrative: XR CHEST 2 VIEWS INDICATION: Cough TECHNIQUE: XR CHEST 2 VIEWS COMPARISON: 03/24/2024 Impression: FINDINGS/IMPRESSION: Postsurgical changes at the right hilum and in the right suprahilar region, unchanged. Scarring at the right lung base is unchanged. No pneumonia, pleural effusion, or pneumothorax. Cardiac silhouette and bones are stable. -------- FINAL REPORT -------- Dictated By: DARNELL BOOKER Dictated Date: 04/04/2024 08:59 ET Assigned Physician: DARNELL BOOKER Reviewed and Electronically Signed By: DARNELL BOOKER Signed Date: 04/04/2024 09:08 ET Workstation ID: [id number] Transcribed By: Self Edit Transcribed Date: 04/04/2024 08:59 ET DAILY CARE CHECKLIST Length of Stay: VTE Prophylaxis: Enoxaparin Resuscitation: Full Code - Default IV Access: Peripheral Tubes, Catheters, Devices: None PCP: Donna Romero MD Disposition: Pending clinical improvement Piyush Hallman MD 04/06/24 1:44 PM EST * Wendy King RN - 04/05/2024 4:25 PM EST 04/05/24 1600 Patient Interview Do you remember reviewing the discharge instructions the last time you were here? Yes How confident were you to use those instructions at home? Very confident Did you feel well when you left the hospital? Yes Did someone talk to you about who to contact (and how) if you were starting to feel worse? Yes Were you educated about your condition prior to leaving the hospital last time? Yes If you have symptoms, do you know what to do to make yourself feel better? Yes Do you know what makes you feel worse? Yes Are you having any problems taking your medications? No When was the last time you saw your Primary Care Provider? Has one, last seen (Comment) Did you have a follow up appointment scheduled prior to discharge? No Does anyone regularly help you manage your condition (medications, appointments, diet, etc)? Yes Do you have someone that can help care for you when you need it (ie family, friend, VNA, PCP)? Yes Readmission Review Readmission Review Complete? Patient/Family Interview - Yes;Chart Review - Yes;Reviewed with Medical Provider - Yes Root Cause Analysis Medical Reason for Readmission cough, dyspnea Patient Reason for Readmission same as before What brought the patient back to the hospital? Medical Medical Reasons Acute SOB Was the Admission Planned? No Readmission reasons D/C Plan: Previous Admit - Observation Patient was readmitted from Home no services * Wendy King RN - 04/05/2024 4:16 PM EST 04/05/24 1613 Initial Transition Plan Initial Transition Plan Home Health Care Discharge Planning Contact (Name, Phone #, Relationship) for DC Planning Katerine Dickens (Daughter) [phone] (Home Phone) Living Arrangements Children Type of Residence Private residence Assistive Devices Walker;Oxygen Support Systems Children Medication Coverage Has Med Coverage Under Insurance Plan Yes Medication Affordability No concerns related to payment for meds Anticipated Discharge Needs Home Health RN;PT Discipline following for SNF placement Edger Hand Informed Choice Informed Choice Given? Yes Transportation Transportation at discharge Family ICC met w Pt at bed side and confirmed demographics. GEM: 04/06 Barriers: hypotension, DuoNeb, 125 mg IV Solu-Medrol, vancomycin, ceftriaxone and 25 g of albumin, IVF, PT eval Dispo: [employer] for nocturnal O2, Daughter to bring in a portable tank for D/C. * Nataly Wu - 04/05/2024 2:26 PM EST [facility] Physical Therapy Evaluation & Treatment PT Discharge Recommendations: Home independent Staff Recommendations for safe patient handling: supervision with ambulation and transfers for blood pressure changes, o2 line management AM-PAC 6 Clicks Scoring Form: Unable: 1 A Lot: 2 A Little: 3 None: 4 How much difficulty does the patient currently have? Turning over in bed (including adjustment of bedclothes, sheets, and blankets) [] [] [] [x] Sitting down on and standing up from a chair with arms (wheelchair, bedside commode etc [] [] [] [x] Moving from lying on back to sitting on the side of the bed [] [] [] [x] How much help from another person does the patient currently need? Moving to and from a bed to a chair ( including a wheelchair) [] [] [] [x] To walk in hospital room [] [] [] [x] Climbing 3-5 steps with a railing [] [] [x] [] Score: 23 /24 score indicates the pt is appropriate for discharge home with therapy recommendation above Precautions RUE Weight Bearing Status: Full LUE Weight Bearing Status: Full RLE Weight Bearing Status: Full LLE Weight Bearing Status: Full Fall prevention education provided including use of call light in hospital, use of appropriate assistive device, safe mobility techniques, and safety measures at home. PT Received On: 04/05/24 PT Start Time: 1300 PT Stop Time: 1330 PT Time Calculation (min): 30 min Precautions RUE Weight Bearing Status: Full LUE Weight Bearing Status: Full RLE Weight Bearing Status: Full LLE Weight Bearing Status: Full Cognition Overall Cognitive Status: Within Functional Limits Arousal/Alertness: Appropriate responses to stimuli Orientation Level: Oriented X4 Following Commands: Follows all commands and directions without difficulty Safety Judgment: Good awareness of safety precautions Awareness of Errors: Good awareness of errors made Hearing: Intact Vision: Intact Speech: Intact Integumentary: intact History of Present Illness: Patient is a 68 y.o. female admitted to [facility] on 04/04/2024. Patient Active Problem List Diagnosis COPD exacerbation (CMS/HCC) Cyst of mediastinum Depression Hiatal hernia Nocturnal hypoxia Ventral hernia without obstruction or gangrene Multifocal pneumonia Hypotension Weakness generalized Past Medical History: Diagnosis Date COPD (chronic obstructive pulmonary disease) (CMS/HCC) DX:COPD (chronic obstructive pulmonary disease) (HCC) Depression 04/24/2017 DX:Depression Dysphagia DX:Dysphagia Esophageal reflux DX:Esophageal reflux Hiatal hernia DX:Hiatal hernia Lung cancer (CMS/HCC) DX:Lung cancer (HCC) Nocturnal hypoxia 04/24/2017 DX:Nocturnal hypoxia Ventral hernia without obstruction or gangrene DX:Ventral hernia without obstruction or gangrene Past Surgical History: Procedure Laterality Date OTHER SURGICAL HISTORY PROCEDURE: GA RMVL LUNG OTH/THN PNUMEC RESXN-PLCTJ EMPHY LUNG OTHER SURGICAL HISTORY Right 06/03/2020 PROCEDURE: GA RESCJ&BRONCHOPLASTY PFRMD TM LOBEC/SGMECTOMY; COMMENT: RUL Wedge w/ completetion RUL lobectomy Social History Home Living Environment: Home Living Type of Home: House Lives With: Daughter (daughter is home all of yhe time) Home Adaptive Equipment: Walker - rolling Home Layout: One level Home Access: Stairs to enter with rails Entrance Stairs-Rails: Rail on the left going up Entrance Stairs-Number of Steps: 5 Prior Function Level of Sandy: Independent with mobility and functional transfers Ambulation Status: Household ambulator Receives Help From: Family Indoor Mobility Assistance: Independent Stairs Assistance : Needed Some Help Prior Device Use: Walker Do you drive?: No Which is your dominant hand?: Right General Assessment 04/05/24 1300 PT Last Visit PT Received On 04/05/24 PT Time Calculation PT Start Time 1300 PT Stop Time 1330 PT Time Calculation (min) 30 min Precautions RUE Weight Bearing Status Full LUE Weight Bearing Status Full RLE Weight Bearing Status Full LLE Weight Bearing Status Full Vital Signs Heart Rate 83 BP 101/62 (sittin/71 standin/80 after ambulation: 101/62) MAP (Calculated) 75 mm Hg SpO2 99 % Oxygen Therapy Pulse Oximetry Type Intermittent Pulse Oximetry Location Finger Patient Activity Walking Oxygen Therapy Supplemental oxygen O2 Delivery Method Nasal cannula O2 Flow Rate (L/min) 2 L/min Pain Assessment Pain Assessment No/denies pain Cognition Overall Cognitive Status WFL Arousal/Alertness Appropriate responses to stimuli Orientation Level Oriented X4 Following Commands Follows all commands and directions without difficulty Safety Judgment Good awareness of safety precautions Awareness of Errors Good awareness of errors made Home Living Type of Home House Lives With Daughter (daughter is home all of yhe time) Home Adaptive Equipment Walker - rolling Home Layout One level Home Access Stairs to enter with rails Entrance Stairs-Rails Rail on the left going up Entrance Stairs-Number of Steps 5 Prior Function Level of Sandy Independent with mobility and functional transfers Ambulation Status Household ambulator Receives Help From Family Indoor Mobility Assistance Independent Stairs Assistance Needed Some Help Prior Device Use Walker Do you drive? No Which is your dominant hand? Right Activity Tolerance Endurance Tolerates 10 - 20 min exercise with multiple rests Activity Tolerance Comments needs rest breaks every 25ft bc of lightheadedness Static Sitting Balance Static Sitting-Level of Assistance Independent Static Standing Balance Static Standing-Level of Assistance Supervision Static Standing-Balance Support Right upper extremity supported;Left upper extremity supported Bed Mobility Lying to Sitting Assistance Supervision Transfers Sit to Stand Assistance Supervision Sit to Stand Deficit Supervision/safety awareness Chair/Bed to Chair/Bed Transfer Assistance Supervision Chair/Bed to Chair/Bed Transfer Deficit Supervision/safety awareness Ambulation Walking Assistance Standby assistance Walking Deficit Supervision/safety awareness;Limited endurance (standbyA with O2 tank) Device Rolling walker Distance Ambulated (ft) 200 Stairs 4 steps: Assistance Contact guard 4 steps: Deficit Supervision/safety awareness;Limited endurance Rails Bilateral Number of Stairs 5 RUE Assessment RUE Assessment Within Functional Limits LUE Assessment LUE Assessment Within Functional Limits RLE Assessment RLE Assessment Within Functional Limits LLE Assessment LLE Assessment Within Functional Limits PT Assessment PT Assessment Results Decreased endurance Prognosis Good Evaluation/Treatment Tolerance Patient tolerated treatment well Medical Staff Made Aware Yes Plan PT Plan No skilled PT No Skilled PT At baseline function PT Discharge Recommendations Home independent PT - Evaluation Status Complete PT Evaluation Time Entry PT Evaluation (Moderate) Time Entry 30 Treatment performed during evaluation: None performed ADDITIONAL COMMENTS: Chart reviewed. RN clears pt for session. Pt agrees to participate and presented in bed upon PT arrival. All lines in place. Gait belt utilized throughout treatment to maximize safety. Medical precautions observed appropriately. Initiated education on the importance of PT, bed mobility safety, Transfer Safety, Ambulation Safety , Therapy Plan of Care, Home Safety, Energy Conservations strategies, and importance of OOB activity . Pt verbalized understanding. EXIT STATUS: Session ended with patient in chair , tray table and call light within reach, and RN made aware. Physical Therapy Assessment/Plan Jamila Ramírez is a 68 y.o. female admitted to [facility] on 04/04/2024 for Hypotension [I95.9] COPD exacerbation ([facility]) [J44.1] Hypotension, unspecified hypotension type [I95.9] . Pt performed bed mobility Independent, HOB elevated, Transfers with Supervision, FWW and ambulates Stand by assist with FWW 200 ft . . PT recommends Home independent when medically stable for safe discharge and to optimize functional mobility and independence. Goals Education Documentation Body Mechanics, taught by Nataly Wu at 04/05/2024 2:26 PM. Learner: Patient Readiness: Acceptance Method: Explanation, Demonstration Response: Verbalizes Understanding, Demonstrated Understanding Mobility Training, taught by Nataly Wu at 04/05/2024 2:26 PM. Learner: Patient Readiness: Acceptance Method: Explanation, Demonstration Response: Verbalizes Understanding, Demonstrated Understanding Education Comments No comments found. Nataly Wu Cosigned by Shanta Marinelli PT at 04/05/2024 2:34 PM EST Associated attestation - Shanta Marinelli PT - 04/05/2024 2:34 PM EST Pt was integrally and physically involved in the decision making, delivery of interventions, and ongoing assessment during the pt's care session. * Piyush Hallman MD - 04/05/2024 1:11 PM EST Images from the original note were not included. [facility] PROGRESS NOTE Date: 04/05/2024 Author: Piyush Hallman MD Patient ID: Jamila Ramírez is a 68 y.o. female : 1955 MR#: [id number] ASSESSMENT & PLAN Assessment/Plan Principal Problem: Weakness generalized Active Problems: COPD exacerbation ([facility]) Hypotension Jamila Ramírez is a 68 y.o. 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 Recent admission 03/24-03/25 for COPD exacerbation and multifocal pneumonia. Patient now returned to ED due to increased shortness of breath, increased nonproductive coughing, generalized weakness worseafter she finished prednisone taper. Patient admitted for hypotension and COPD exacerbation. 1. Chronic respiratory failure with hypoxia Continues on her usual oxygen requirement of 2 L/min. 2. COPD with exacerbation Patient having mild wheezing. Will continue with albuterol, revefenacin, budesonide and formoterol.Azithromycin added. Continue prednisone [address] chest shows no acute findings, no evidence of pneumonia. Procalcitonin was normal. 3. Hypotension Patient has SBP in the 80s. Will continue midodrine as needed. Denies lightheadedness. Pending PT eval. 4. Lung nodules CT shows stable lung nodules. Needs to continue outpatient follow-up. 5. Generalized weakness Likely secondary to COPD exacerbation. Pending PT eval. SUBJECTIVE Subjective No events overnight. Telemetry showed sinus rhythm. Patient complained of frequent nonproductive cough and shortness of breath. She denied chest pain, nausea, vomiting, fever, chills. Allergies Patient has no known allergies. Current Medications: atorvastatin, 40 mg, oral, Nightly azithromycin, 250 mg, oral, Daily formoterol, 20 mcg, nebulization, BID And budesonide, 0.5 mg, nebulization, Daily And revefenacin, 175 mcg, nebulization, Daily enoxaparin, 30 mg, subcutaneous, q24h LEONARDO guaiFENesin, 600 mg, oral, q12h LEONARDO influenza quadrivalent (6 mos and Up), 0.5 mL, intramuscular, During hospitalization magnesium oxide, 400 mg, oral, Daily pantoprazole, 40 mg, oral, q AM AC predniSONE, 40 mg, oral, Daily PRN medications: acetaminophen, albuterol, midodrine OBJECTIVE Vitals: 04/05/24 0345 04/05/24 0803 04/05/24 0826 04/05/24 1122 BP: 132/73 (!) 148/68 87/63 BP Location: Right arm Right arm Left arm Patient Position: Sitting Lying Lying Pulse: 64 74 70 77 Resp: 24 (!) 27 Temp: 36.5 ??C (97.7 ??F) 36.7 ??C (98 ??F) 37 ??C (98.6 ??F) TempSrc: Oral Temporal Temporal SpO2: 97% 97% 100% 99% Weight: Height: Physical Exam Vitals and nursing note reviewed. Constitutional: General: She is not in acute distress. Appearance: She is not toxic-appearing. HENT: Head: Normocephalic and atraumatic. Nose: Nose normal. Mouth/Throat: Mouth: Mucous membranes are moist. Eyes: Extraocular Movements: Extraocular movements intact. Pupils: Pupils are equal, round, and reactive to light. Cardiovascular: Rate and Rhythm: Normal rate and regular rhythm. Heart sounds: No murmur heard. Pulmonary: Effort: No respiratory distress. Breath sounds: Wheezing present. No rales. Abdominal: General: There is no distension. Palpations: Abdomen is soft. There is no mass. Tenderness: There is no abdominal tenderness. Skin: General: Skin is warm and dry. Neurological: General: No focal deficit present. Mental Status: She is alert. Mental status is at baseline. LABS HEMATOLOGY Lab Results Component Value Date WBC 8.4 04/04/2024 HGB 12.8 04/04/2024 HCT 41.7 04/04/2024 MCV 98.8 (H) 04/04/2024 PLT 298 04/04/2024 CHEMISTRY Lab Results Component Value Date GLUCOSE 131 (H) 04/05/2024 NA 142 04/05/2024 K 4.0 04/05/2024 CO2 25 04/05/2024 CL 110 04/05/2024 BUN 19 04/05/2024 CREATININE 0.43 (L) 04/05/2024 EGFR 105 04/05/2024 CALCIUM 8.1 (L) 04/05/2024 MG 1.7 (L) 04/05/2024 PHOS 2.6 04/05/2024 ANIONGAP 7 04/05/2024 Recent Results (from the past week) Respiratory virus panel molecular study Collection Time: 04/04/24 9:45 AM Specimen: Nares; Swab Result Value Ref Range Adenovirus Detection by PCR Not Detected Not Detected Influenza A PCR Not Detected Not Detected Influenza B PCR Not Detected Not Detected Coronavirus 229E Not Detected Not Detected Coronavirus HKU1 Not Detected Not Detected Coronavirus OC43 Not Detected Not Detected Coronavirus NL63 Not Detected Not Detected Parainfluenza Virus 1 Not Detected Not Detected Parainfluenza Virus 2 Not Detected Not Detected Parainfluenza Virus 3 Not Detected Not Detected Parainfluenza Virus 4 Not Detected Not Detected RSV PCR Not Detected Not Detected Human Metapneumovirus A and B Not Detected Not Detected Rhinovirus/Enterovirus Not Detected Not Detected Bordetella pertussis Not Detected Not Detected Bordetella parapertussis Not Detected Not Detected Mycoplasma pneumo by PCR Not Detected Not Detected Chlamydia pneumoniae Not Detected Not Detected SARS COV-2 Not Detected Not Detected Culture urine Collection Time: 04/04/24 9:52 AM Specimen: Urine, Clean Catch Result Value Ref Range Culture, Urine No growth Blood Culture, Peripheral #1 Collection Time: 04/04/24 10:19 AM Specimen: Blood, Venous Result Value Ref Range Culture, Blood No growth at 24 hours Blood Culture, Peripheral #2 Collection Time: 04/04/24 10:19 AM Specimen: Blood, Venous Result Value Ref Range Culture, Blood No growth at 24 hours Imaging: CT Angio Chest wo and/or w Contrast Narrative: PROCEDURE: Chest CTA INDICATION: Shortness of breath, hypotension TECHNIQUE: Chest CTA with intravenous administration of 90cc ISOVUE-370. Multi planar reformats were created and interpreted. The examination was performed utilizing dose reduction techniques.3-D or MIP images were produced with postprocessing on an independent computer workstation. Total DLP 153 COMPARISON: 03/24/2024 FINDINGS: LUNGS/PLEURA: Central airways are patent. Right upper lobectomy. Scattered mucous plugging seen in the lower lobe airways. Scarring in the right middle and lower lobes, unchanged. Cystic scarring in the right lower lobe is unchanged. Resolved bronchial wall thickening and centrilobular nodularity. No pleural effusion or pneumothorax. New subpleural nodule in the left lower lobe, likely inflammatory. Unchanged groundglass nodule in the left upper lobe measuring 15 mm. Emphysema. No consolidation. MEDIASTINUM: No pulmonary arterial emboli. Thoracic aorta is normal in size. Small hiatal hernia with circumferential thickening of the esophagus. Thyroid gland is normal. No mediastinal or hilar lymphadenopathy. Low density within the anterior mediastinum is unchanged. Cardiac chambers are normal in size. No pericardial effusion. Mild coronary artery calcifications. CHEST WALL: No axillary lymphadenopathy or superficial hematoma. UPPER ABDOMEN:The visualized portions of the upper abdomen are unremarkable. BONES: No acute fracture. Scattered degenerative changes seen throughout the bones. Impression: No pulmonary arterial emboli. No acute findings in the chest. Improved infectious or inflammatory bronchitis and bronchiolitis. Small hiatal hernia with circumferential thickening of the esophagus. Correlate for reflux esophagitis. Endoscopy could evaluate further. Unchanged scattered pulmonary nodules and emphysema. Recommend enrolling in annual lung cancer screening chest CT program. -------- FINAL REPORT -------- Dictated By: DARNELL BOOKER Dictated Date: 04/04/2024 10:27 ET Assigned Physician: DARNELL BOOKER Reviewed and Electronically Signed By: DARENLL BOOKER Signed Date: 04/04/2024 10:57 ET Workstation ID: [id number] Transcribed By: Self Edit Transcribed Date: 04/04/2024 10:27 ET XR Chest 2 Views Narrative: XR CHEST 2 VIEWS INDICATION: Cough TECHNIQUE: XR CHEST 2 VIEWS COMPARISON: 03/24/2024 Impression: FINDINGS/IMPRESSION: Postsurgical changes at the right hilum and in the right suprahilar region, unchanged. Scarring at the right lung base is unchanged. No pneumonia, pleural effusion, or pneumothorax. Cardiac silhouette and bones are stable. -------- FINAL REPORT -------- Dictated By: DARNELL BOOKER Dictated Date: 04/04/2024 08:59 ET Assigned Physician: DARNELL BOOKER Reviewed and Electronically Signed By: DARNELL BOOKER Signed Date: 04/04/2024 09:08 ET Workstation ID: [id number] Transcribed By: Self Edit Transcribed Date: 04/04/2024 08:59 ET DAILY CARE CHECKLIST Length of Stay: VTE Prophylaxis: Enoxaparin Resuscitation: Full Code - Default IV Access: Peripheral Tubes, Catheters, Devices: None PCP: Donna Romero MD Disposition: Pending clinical improvement Piyush Hallman MD 04/05/24 1:11 PM EST * Katerine Fatima RN - 04/05/2024 7:16 AM EST ED RN HANDOFF (All Lane Below Must Be Completed) Reason/Diagnosis for Admission: Hypotenision, SOB Type of Admission: [] Medsurg, [x] Telemetry Already in a Hospital Bed: [x] Yes / [] No Room Considerations/Precautions (ex: fever, diarrhea, or any infectious concerns): [] Yes / [x] No Union Organiser: [x] Yes / [] No If YES, Cardiac Rhythm: [x] NSR, [] SB, [] ST, [] A-FIB, [] A-Flutter, [] Pacemaker, [] 1st Degree HB, [] 2nd Degree HB, [] 3rd Degree HB Reason for Union Organiser: VS: Visit Vitals BP 97/64 (BP Location: Left arm, Patient Position: Lying) Pulse 64 Temp 37.1 ??C (98.8 ??F) (Oral) Resp 18 Ht 1.499 m (59 ) Wt (!) 38.2 kg (84 lb 4.8 oz) SpO2 97% BMI 17.03 kg/m?? Smoking Status Some Days BSA 1.28 m?? Current Mental Status: A/O x []4, [x]3, []2, []1 Current Ambulation Status: Standby IV Access: [x] Yes / [] No Field IV present: [] Yes / [x] No Hx of Violence: [] Yes / [x] No / [] Unknown Fall Risk:[] Yes / [x] No Yellow Bracelet Applied [] Yes / [x] No Yellow Socks Applied [] Yes / [x] No Patient Belongings inventoried and BL completed: [x] Yes / [] No Patient belongings stored in the security closet: [] Yes (If Yes please supply Security bag #): [x] No Patient Medications stored in Pharmacy: [] Yes (If Yes please supply Medication Security bag #): [x] No ED Summary of Care: Pt recently admitted for PNA, C/O SOB x2 days with increased O2 need at home, weakness and dry cough. Resp panel negative, chest x-ray negative. Pressures soft, LR at 75/hr. Submitted by and Phone Extension: [phone] Blessing Caro RN * Georgia Abbasi RN - 04/04/2024 8:31 AM EST Increased SOB and productive cough over past couple days, went to urgent care diagnosed with pneumonia yesterday feeling worse this morning * DANIELA Ruffin - 04/04/2024 8:22 AM EST Emergency Medicine Note Patient Name: Jamila Ramírez Initial Evaluation: 04/04/2024 : 1955 Patient's PCP: Donna Romero MD Emergency Physician: DANIELA Ruffin History of Present Illness Chief Complaint: Chief Complaint Patient presents with ??? Shortness of Breath D/c on 03/25 with PNA, chest xray ? Fluid in lungs HPI: This is a 68-year-old female with past medical history significant for moderate/severe COPD on2 L of nasal cannula at nighttime, lung cancer status post RUL lobectomy, GERD, among others presenting with 2 days of increased shortness of breath, increased oxygen requirement at home, generalizedweakness and cough. She was recently admitted here for multifocal pneumonia, previously evaluated by myself here in the ED and discharged on 03/25. She went to urgent care yesterday and there was question of pneumonia on her x-ray and was started on doxycycline and benzonatate. Currently feels like her breathing is okay but has increased shortness of breath with exertion and endorses a mild headache and generalized weakness. Denies measured fevers at home, nausea, vomiting, diarrhea, abdominal pain, chest pain, back pain, bowel or bladder abnormalities, lower extremity pain or swelling. ROS: I have performed a ROS with the pertinent positives and negatives documented in the history ofpresent illness. Previous History Past Medical History: Diagnosis Date ??? COPD (chronic obstructive pulmonary disease) (CMS/HCC) DX:COPD (chronic obstructive pulmonary disease) (HCC) ??? Depression 04/24/2017 DX:Depression ??? Dysphagia DX:Dysphagia ??? Esophageal reflux DX:Esophageal reflux ??? Hiatal hernia DX:Hiatal hernia ??? Lung cancer (CMS/HCC) DX:Lung cancer (HCC) ??? Nocturnal hypoxia 04/24/2017 DX:Nocturnal hypoxia ??? Ventral hernia without obstruction or gangrene DX:Ventral hernia without obstruction or gangrene Past Surgical History: Procedure Laterality Date ??? OTHER SURGICAL HISTORY PROCEDURE: GA RMVL LUNG OTH/THN PNUMEC RESXN-PLCTJ EMPHY LUNG ??? OTHER SURGICAL HISTORY Right 06/03/2020 PROCEDURE: GA RESCJ&BRONCHOPLASTY PFRMD TM LOBEC/SGMECTOMY; COMMENT: RUL Wedge w/ completetion RUL lobectomy Social History Tobacco Use ??? Smoking status: Some Days Current packs/day: 0.00 Types: Cigarettes Last attempt to quit: 05/11/2021 Years since quittin.9 ??? Smokeless tobacco: Never Substance Use Topics ??? Alcohol use: No ??? Drug use: No Family History Problem Relation Name Age of Onset ??? Liver disease Mother Liver Cirrosis ??? Throat cancer Father ??? Hypertension Brother ??? Hypertension Daughter ??? Other (Other: other) Daughter Breast Mass has No Known Allergies. No current facility-administered medications on file prior to encounter. Current Outpatient Medications on File Prior to Encounter Medication Sig Dispense Refill ??? atorvastatin (LIPITOR) 20 mg tablet Take 20 mg by mouth daily. ??? [] azithromycin (ZITHROMAX) 500 mg tablet Take 1 tablet (500 mg total) by mouth at bedtime for 3 doses. 3 each 0 ??? [] cefpodoxime (VANTIN) 200 mg tablet Take 1 tablet (200 mg total) by mouth 2 (two) times a day for 5 days. 10 each 0 ??? dextromethorphan-guaiFENesin (ROBITUSSIN-DM) 10-100 mg/5 mL syrup Take 10 mL by mouth every 4 (four) hours if needed for cough for up to 10 days. 600 mL 0 ??? berkuobecsd-nlxbrntvgaaz-yodpqnmuod (Trelegy Ellipta) 100-62.5-25 mcg inhaler Inhale into the lungs. ??? ipratropium-albuteroL (DUONEB) 0.5-2.5 mg/3 mL nebulizer solution Take 3 mL by nebulization 4 (four) times a day if needed for wheezing or shortness of breath for up to 7 days. 84 mL 0 ??? nabumetone (RELAFEN) 500 mg tablet Take 1 Tablet by mouth 2 times daily. ??? omeprazole (PriLOSEC) [address] capsule TAKE ONE CAPSULE BY MOUTH EVERY MORNING ON AN EMPTY STOMACH; WAIT 30 MINUTES AND THEN EAT TO ACTIVATE MEDICATION ??? Oxygen Therapy (O2) gas Inhale into the lungs. Oxygen Historical (HISTORICAL OXYGEN) ??? [] predniSONE (DELTASONE) 10 mg tablet Take 4 tablets (40 mg total) by mouth 1 (one) time each day for 2 days, THEN 3 tablets (30 mg total) 1 (one) time each day for 2 days, THEN 2 tablets(20 mg total) 1 (one) time each day for 2 days, THEN 1 tablet (10 mg total) 1 (one) time each day for 2 days. 20 each 0 ??? romosozumab-aqqg (Evenity) Inject 2.34 mL (210 mg total) under the skin every 30 (thirty) days. Physical Exam ED Triage Vitals [04/04/24 0829] Temp Heart Rate Resp BP 36.5 ??C (97.7 ??F) 88 22 82/68 SpO2 Temp Source Heart Rate Source Patient Position 95 % Oral -- Sitting BP Location FiO2 (%) Left arm -- GENERAL: Nontoxic. SKIN: Appropriate color for ethnicity, warm, dry. No rashes. HEENT: No stridor, no lymphadenopathy. NECK: Soft, supple, full ROM, Midline structures. CHEST: Heart regular rate and rhythm, no rubs, no gallops or murmurs. PULMONARY: Lung sounds diminished right lower lobe, scattered wheezes. Slight increased work of breathing. ABDOMINAL: Soft, nondistended nontender with positive bowel sounds. No rebound or guarding. MUSCULOSKELETAL: Normal tone, moves all extremity spontaneously, no calf tenderness or edema. NEURO: Alert and oriented x3, Cranial nerves II through XII are intact,. PSYCHIATRIC: Normal affect, fluid speech, good eye contact and appropriate demeanor. Results Labs Reviewed CBC WITH AUTO DIFFERENTIAL - Abnormal Result Value WBC 8.4 RBC 4.20 Hemoglobin 12.8 Hematocrit 41.7 MCV 98.8 (*) MCH 30.3 MCHC 30.7 (*) RDW 14.2 Platelets 298 MPV 8.8 NRBC 0.0 NRBC Absolute 0.00 Neutrophils Relative 61.8 Lymphocytes Relative 22.6 Monocytes Relative 10.5 Eosinophils Relative 2.0 Basophils Relative 1.1 Immature Granulocytes Relative 2.0 Neutrophils Absolute 5.17 Lymphocytes Absolute 1.89 Monocytes Absolute 0.88 Eosinophils Absolute 0.17 Basophils Absolute 0.09 Immature Granulocytes Absolute 0.17 (*) VENOUS BLOOD GAS - Abnormal pH, Thanh 7.43 (*) pCO2, Thanh 46 pO2, Thanh 43 (*) HCO3, Venous 28.3 (*) O2 Sat, Thanh 75.4 Base Excess, Thanh 5.2 (*) COMPREHENSIVE METABOLIC PANEL - Abnormal Sodium 142 Potassium 4.6 Chloride 107 CO2 29 Anion Gap 6 Glucose 78 BUN 30 (*) Creatinine 0.52 eGFR 101 BUN/Creatinine Ratio 57.7 Calcium 9.3 AST (SGOT) 24 ALT (SGPT) 45 Alkaline Phosphatase 84 Total Protein 6.7 Albumin 3.1 (*) Total Bilirubin 0.7 URINALYSIS WITH REFLEX MICROSCOPIC AND CULTURE - Abnormal Specific Ronda Urine 1.027 pH, Urine 6.5 Leukocytes, Urine Trace (*) Nitrite, Urine Negative Protein, Urine Negative Glucose, Urine Negative Ketones, Urine Trace (*) Urobilinogen, Urine 0.2 Bilirubin, Urine Negative Blood, Urine Negative RBC, Urine 4.3 (*) WBC, Urine 4.8 (*) Squamous Epithelial, Urine 64 (*) Bacteria, Urine Few (*) Hyaline Casts, Urine 1.2 RESPIRATORY VIRUS PANEL MOLECULAR STUDY - Normal [...] Detected Narrative: Testing was performed using the [employer] Respiratory Pathogen PCR Assay. All results must [...] that are below the limit of detection. LACTATE - Normal Lactate 1.0 B-TYPE NATRIURETIC PEPTIDE - Normal BNP 4 CULTURE BLOOD Culture, Blood Culture in progress CULTURE BLOOD Culture, Blood Culture in progress CULTURE URINE CBC AND DIFFERENTIAL Narrative: The following orders were created for panel order CBC and differential. Procedure Abnormality Status --------- ------ CBC auto differential[[id number]] Abnormal Final result Please view results for these tests on the individual orders. URINALYSIS WITH REFLEX MICROSCOPIC AND CULTURE Narrative: The following orders were created for panel order Urinalysis with reflex microscopic and culture. Procedure Abnormality Status --------- ------ Urinalysis with reflex ...[[id number]] Abnormal Final result Rader urine culture tube[[id number]] In process Please view results for these tests on the individual orders. Abnormal Labs Reviewed CBC WITH AUTO DIFFERENTIAL - Abnormal; Notable for the following components: Result Value MCV 98.8 (*) MCHC 30.7 (*) Immature Granulocytes Absolute 0.17 (*) All other components within normal limits VENOUS BLOOD GAS - Abnormal; Notable for the following components: pH, Thanh 7.43 (*) pO2, Thanh 43 (*) HCO3, Venous 28.3 (*) Base Excess, Thanh 5.2 (*) All other components within normal limits COMPREHENSIVE METABOLIC PANEL - Abnormal; Notable for the following components: BUN 30 (*) Albumin 3.1 (*) All other components within normal limits URINALYSIS WITH REFLEX MICROSCOPIC AND CULTURE - Abnormal; Notable for the following components: Leukocytes, Urine Trace (*) Ketones, Urine Trace (*) RBC, Urine 4.3 (*) WBC, Urine 4.8 (*) Squamous Epithelial, Urine 64 (*) Bacteria, Urine Few (*) All other components within normal limits CT Angio Chest wo and/or w Contrast Final Result No pulmonary arterial emboli. No acute findings in the chest. Improved infectious or inflammatory bronchitis and bronchiolitis. Small hiatal hernia with circumferential thickening of the esophagus. Correlate for reflux esophagitis. Endoscopy could evaluate further. Unchanged scattered pulmonary nodules and emphysema. Recommend enrolling in annual lung cancer screening chest CT program. -------- FINAL REPORT -------- Dictated By: DARNELL BOOKER Dictated Date: 04/04/2024 10:27 ET Assigned Physician: DARNELL BOOKER Reviewed and Electronically Signed By: DARNELL BOOKER Signed Date: 04/04/2024 10:57 ET Workstation ID: [id number] Transcribed By: Self Edit Transcribed Date: 04/04/2024 10:27 ET XR Chest 2 Views Final Result FINDINGS/IMPRESSION: Postsurgical changes at the right hilum and in the right suprahilar region, unchanged. Scarring at the right lung base is unchanged. No pneumonia, pleural effusion, or pneumothorax. Cardiac silhouette and bones are stable. -------- FINAL REPORT -------- Dictated By: DARNELL BOOKER Dictated Date: 04/04/2024 08:59 ET Assigned Physician: DARNELL BOOKER Reviewed and Electronically Signed By: DARNELL BOOKER Signed Date: 04/04/2024 09:08 ET Workstation ID: [id number] Transcribed By: Self Edit Transcribed Date: 04/04/2024 08:59 ET I have discussed the incidental/abnormal imaging and/or lab abnormalities with the patient and haveinstructed them the need for further evaluation and workup with their primary care doctor. I have provided the patient with a paper copy of the abnormality. The laboratory results, imaging results and other diagnostic exam results were reviewed in the EMR. EKG Interpretation Critical Care Time None Differential Diagnosis Pneumonia Sepsis UTI Viral URI COPD exacerbation Dehydration Atypical ACS Medical Decision Making Medications vancomycin (VANCOCIN) 1 g in sodium chloride 0.9 % 250 mL IVPB (1 g intravenous New Bag 04/04/24 2126) albumin human 25 % infusion 25 g (has no administration in time range) sodium chloride 0.9 % bolus 1,000 mL (1,000 mL intravenous New Bag 04/04/24 1534) ipratropium-albuteroL (DUONEB) 0.5-2.5 mg/3 mL nebulizer solution 3 mL (3 mL nebulization Given 04/04/24 0934) methylPREDNISolone sodium succ (SOLU-Medrol) injection 125 mg (125 mg intravenous Given 04/04/24 1015) cefTRIAXone (ROCEPHIN) 1 g in sterile water 10 mL IV syringe (1 g intravenous Given 04/04/24 1052) sodium chloride 0.9 % flush 10 mL (10 mL intravenous Given 04/04/24 0959) iopamidoL (ISOVUE-370) 370 mg iodine /mL (76 %) injection 90 mL (90 mL intravenous Given 04/04/24 0959) ED Course as of 04/04/24 1241 TueApr 04, [id number] Patient was seen and evaluated, she is hypotensive to 82/68, otherwise afebrile and stable, wheezes are auscultated on exam with diminished lung sounds in the right lower lobe, recent multifocalpneumonia discharged but now feeling worse for x 2 days, currently on doxycycline which was startedyesterday for suspected pneumonia, chest x-ray no acute findings. Will give DuoNeb, Solu- Medrol, sepsis protocol IV fluids. Plan for lactic, blood cultures, empiric antibiotics. CT chest angiography.EKG is nonischemic. [YB] 1118 Patient after 1 L of IV fluids, BP is 81/62, lab workup shows abdomen of 3.1, BUN of 30, UA isnot convincing for UTI, CT chest angiography shows improved inflammatory/infectious findings, givenher persistent hypotension and low albumin will give 25 g of albumin, and will admit to medical service. Case and plan discussed with my attending physician Dr. Hart. [YB] [address] Hunter would like blood pressure to be higher prior to admission, will continue albumin and fluids and reassess. Patient is mentating well and is well-perfused overall. [YB] 1241 Admitted to medical service. [YB] ED Course User Index [YB] DANIELA Ruffin Clinical Impressions as of 04/04/24 124 COPD exacerbation (CMS/[facility]) Hypotension, unspecified hypotension type Procedures Procedures Diagnosis 1. Shortness of breath CT Angio Chest wo and/or w Contrast CT Angio Chest wo and/or w Contrast Disposition Data Unavailable ED Prescriptions None Physician Attestation DANIELA Ruffin 04/04/24 0923 DANIELA Ruffin 04/04/24 0934 DANIELA Ruffin 04/04/24 1127 DANIELA Ruffin 04/04/24 1541 Cosigned by Adam Hart MD at 04/05/2024 10:11 AM EST documented in this encounter Consult Notes * Aylin Boyer, RD - 04/06/2024 11:29 AM ESTAssociated Order(s): IP CONSULT TO NUTRITION SERVICES 04/06/2024 @ 11:29 AM EST Nutrition Consult Note/Nutrition Assessment Reason for RD Intervention: Assessment Type: Provider Consult Reason for Assessment: High MST Score (supplements) Anthropometrics: Height: 149.9 cm (59.02 ) Weight: (!) 38.2 kg (84 lb 3.5 oz) Weight Method: (per EPIC unknown method) BMI (Calculated): 17 BMI Class: Underweight IBW (lbs): 95 % IBW: 88.65 Recent Weight Change: Yes 1 Month (lbs): 92 Wt Change 1 Mo (%): 8.46 Other (Comment): pt was 92 to 96 pounds 1 month ago ABW Needed: No Current Diet and Supplements: Dietary Orders (From admission, onward) Start Ordered 04/06/24 1034 Dietary nutrition supplements Three times daily (TID); [facility]; Standard Oral Supplement Continuous Comments: marleneilla Question Answer Comment Frequency Three times daily (TID) Location [facility] Supplements Standard Oral Supplement 04/06/24 1034 04/04/24 1241 Adult diet [facility]; General; Regular Diet effective now Question Answer Comment Location [facility] Diet Type (req) General General Diet Regular 04/04/24 1240 History of presenting illness: Patient is a 68 y.o. female with a history of Past Medical History: Diagnosis Date COPD (chronic obstructive pulmonary disease) (CMS/HCC) DX:COPD (chronic obstructive pulmonary disease) (HCC) Depression 04/24/2017 DX:Depression Dysphagia DX:Dysphagia Esophageal reflux DX:Esophageal reflux Hiatal hernia DX:Hiatal hernia Lung cancer (CMS/HCC) DX:Lung cancer (HCC) Nocturnal hypoxia 04/24/2017 DX:Nocturnal hypoxia Ventral hernia without obstruction or gangrene DX:Ventral hernia without obstruction or gangrene Past Surgical History: Procedure Laterality Date OTHER SURGICAL HISTORY PROCEDURE: GA RMVL LUNG OTH/THN PNUMEC RESXN-PLCTJ EMPHY LUNG OTHER SURGICAL HISTORY Right 06/03/2020 PROCEDURE: GA RESCJ&BRONCHOPLASTY PFRMD TM LOBEC/SGMECTOMY; COMMENT: RUL Wedge w/ completetion RUL lobectomy admitted 04/04/2024 with Weakness generalized. Food/Nutrition History: Previously prescribed diets: (pt denies dificulty chewing/swallowing, food allergeis, food insecurities. pt lost 6 pounds in the past month) Self-selected diet(s) followed: no added salt, no concentrated sweets Appetite TRANSFORMATION ARCHITECT: Good Intake TRANSFORMATION ARCHITECT: Stable Nourishment Type: Ensure Frequency: Daily Weight History: Wt Readings from Last 10 Encounters: 04/06/24 (!) 38.2 kg (84 lb 3.5 oz) 03/24/24 (!) 43.5 kg (96 lb) 10/14/23 (!) 38.7 kg (85 lb 6.4 oz) 07/20/23 (!) 39.9 kg (88 lb) 04/08/23 (!) 41.8 kg (92 lb 3.2 oz) 09/07/22 (!) 41.4 kg (91 lb 3.2 oz) 07/08/22 (!) 40.4 kg (89 lb) 06/15/22 (!) 41.5 kg (91 lb 9.6 oz) 03/10/22 (!) 40.4 kg (89 lb) 12/15/21 (!) 39.5 kg (87 lb) Subjective Assessment: Pt admitted with weakness. Found to have hypotension, weakness, COPD exacerbation. Pt reports eating well, 75-100% of meals. Today pt had nausea, vomiting, diarrhea this morning before breakfast or med pass. Nutrition-Related Lab Values: Results from last 7 days Lab Units 04/05/24 0408 04/04/24 0919 SODIUM mmol/L 142 142 POTASSIUM mmol/L 4.0 4.6 PHOSPHORUS mg/dL 2.6 -- MAGNESIUM mg/dL 1.7* -- CHLORIDE mmol/L 110 107 CO2 mmol/L 25 29 BUN mg/dL 19 30* CREATININE mg/dL 0.43* 0.52 EGFR mL/min/1.73m2 105 101 CALCIUM mg/dL 8.1* 9.3 BILIRUBIN TOTAL mg/dL -- 0.7 ALK PHOS unit/L -- 84 ALT unit/L -- 45 AST unit/L -- 24 GLUCOSE mg/dL 131* 78 WBC AUTO K/mcL -- 8.4 No results found for: LIPASE Medications: atorvastatin, 40 mg, oral, Nightly azithromycin, 250 mg, oral, Daily formoterol, 20 mcg, nebulization, BID And budesonide, 0.5 mg, nebulization, Daily And revefenacin, 175 mcg, nebulization, Daily enoxaparin, 30 mg, subcutaneous, q24h LEONARDO guaiFENesin, 600 mg, oral, q12h LEONARDO influenza quadrivalent (6 mos and Up), 0.5 mL, intramuscular, During hospitalization magnesium oxide, 400 mg, oral, Daily pantoprazole, 40 mg, oral, q AM AC predniSONE, 40 mg, oral, Daily CONTINUOUS: PRN medications: acetaminophen, albuterol, midodrine Energy Needs: kcal, gm protein, mL fluid per day. Total Energy Estimated Needs: based on [id number] calories (35-40 lakisha/kg), 46-57 g protien (1.2-1.5 g/kg), 8883-9904 ml fluid (35-40 ml/kg) Height: 149.9 cm (59.02 ) Weight Used for Equation Calculations: (!) 38.2 kg (84 lb 3.5 oz) [place] Equation: [address] [place] Equation (Overweight or Obese Patients): 813 Temp: 36.7 ??C (98.1 ??F) Food/Nutrition-Current Status: Intake Type: P.O. Current Diet Status: Appropriate Current Supplement Status: Other (Comment) (will change Ensure Clear to Ensure Plus High Protein) Appetite: Good Intake Amount (%): 75-100% Intake Assessment: Adequate Main IVF: None Propofol?: No Nutrition Focused Physical Findings: Overall Appearance: pt lying in bed Digestive System (Mouth to Rectum): Diarrhea, Nausea, Vomiting (last documented BM 04/04. pt reportsnausea, vomiting, diarrhea this morning) Nerves and Cognition: Alert, Oriented Skin: intact Loss of Fat Location: Orbital, Buccal, Triceps, Ribs Loss of Fat Amt-Orbital: Mild Loss of Fat Amt-Buccal: Mild Loss of Fat Amt-Triceps: Mild Loss of Fat Amt-Ribs: Moderate Loss of Muscle Location: Temples, Clavicle, Shoulders, Interosseous, Scapula, Thigh, Calf Loss of Muscle Amt-Temples: Moderate Loss of Muscle Amt-Clavicle: Moderate Loss of Muscle Amt-Shoulders: Moderate Loss of Muscle Amt-Inter Musc: Moderate Loss of Muscle Amt-Scapula: Moderate Loss of Muscle Amt-Thigh: Moderate Loss of Muscle Amt-Calf: Moderate Nutrition Diagnosis: Code Type: Moderate-Chronic (E44.0) Moderate-Chronic Criteria: Weight Loss 5%/1mo, Mild Muscle Mass Depletion, Mild Body Fat Depletion Status: New Diagnosis: Malnutrition Etiology: Physiologic causes Symptoms: patient meets criteria for moderate malnutrition in the setting of chronic illness (COPD)as evidenced by 6.25-6.5% loss of body weight in 1 month, mild fat loss (bucal, orbits, triceps), moderate fat loss (ribs), moderate muscle losses (temples, clavicel, shoulder, interosseus, calf, thigh, scapula) Nutrition Interventions: Medical Food Supplement, Vitamin/Mineral Supplement Medical Food Supplement(s): Ensure Plus (Ensure Plus High Protein) If patient not discharged recommend adding Multivitamin and 100 mg Thiamine daily Goals: Patient will consume greater than or equal to 75% meals., Patient will consume ONS., Monitor/control glucose levels, Improvement in renal labs., Electrolytes within normal range., Maintain weight., Stooling appropriately., and Maintain skin integrity. Coordination of Patient Care: Verbal discussion with RN. and Care plan discussed with patient/family. Monitoring/Evaluation: Fluid/Beverage Intake, Food Intake, Weight, Renal/Electrolyte Profile, Gastrointestinal Profile Nutrition Recommendations/Plan of Care: Follow Up: Nutrition Priority Level: High Follow up Date: 04/10/24 Please consult nutrition if needed sooner. Nutritional Discharge Recommendations: RD remains available and will continue to follow. Signature: Aylin Boyer RD documented in this encounter Plan of Treatment Upcoming Encounters Date Type Department Care Team (Late st Contact Info) Description 07/09/2024 10:30 AM EDT Appointment [facility] CT Scan [address] [place] [address] 07/19/2024 9:00 AM EDT Ancillary Procedure Pulmonolgy - [place] [address] [place] [address] Adarsh Henriquez 07/19/2024 10:00 AM EDT [facility] [address] [place] [id number] Ana Flaherty MD [address] [place] [address] documented as of this encounter Procedures Procedure Name Priority Date/Time Associated Diagnosis Comments ECG ANNOTATED 04/09/2024 MAGNESIUM Routine 04/07/2024 6:01 AM EST BASIC METABOLIC PANEL Routine 04/07/2024 6:01 AM EST EXTRA TUBES Routine 04/07/2024 5:58 AM EST LAVENDER - EDTA Routine 04/07/2024 5:58 AM EST PROCALCITONIN Add-On 04/05/2024 4:08 AM EST PHOSPHORUS Routine 04/05/2024 4:08 AM EST MAGNESIUM Routine 04/05/2024 4:08 AM EST BASIC METABOLIC PANEL Routine 04/05/2024 4:08 AM EST CULTURE BLOOD STAT 04/04/2024 10:19 AM EST CULTURE BLOOD STAT 04/04/2024 10:19 AM EST B-TYPE NATRIURETIC PEPTIDE STAT 04/04/2024 10:[address] ANGIO CHEST WO AND/OR W CONTRAST STAT 04/04/2024 10:04 AM EST COPD exacerbation (CMS/HCC) URINALYSIS WITH REFLEX MICROSCOPIC AND CULTURE STAT 04/04/2024 9:52 AM EST RADER URINE CULTURE TUBE STAT 04/04/2024 9:52 AM EST URINALYSIS WITH REFLEX MICROSCOPIC AND CULTURE STAT 04/04/2024 9:52 AM EST CULTURE URINE STAT 04/04/2024 9:52 AM EST RESPIRATORY VIRUS PANEL MOLECULAR STUDY STAT 04/04/2024 9:45 AM EST THYROID STIMULATING HORMONE WITH REFLEX TO FREE T4 AND FREE T3 Add-On 04/04/2024 9:19 AM EST CBC WITH AUTO DIFFERENTIAL STAT 04/04/2024 9:19 AM EST CBC AND DIFFERENTIAL STAT 04/04/2024 9:19 AM EST LACTATE STAT 04/04/2024 9:19 AM EST VENOUS BLOOD GAS STAT 04/04/2024 9:19 AM EST COMPREHENSIVE METABOLIC PANEL STAT 04/04/2024 9:19 AM EST ECG 12-LEAD STAT 04/04/2024 9:10 AM EST XR CHEST 2 VIEWS STAT 04/04/2024 8:55 AM EST documented in this encounter Results * ECG-Annotated (04/09/2024) us Provider Onbase ECG ORDERABLES Final Result * (ABNORMAL) Magnesium (04/07/2024 6:01 AM EST) Pathologist [facility] Magnesium 1.7(L) 1.9 - 2.6 mg/dL LAB CHEMISTRY METHOD 04/07/2024 7:27 AM [facility] Blood Venous blood specimen / Unknown Venipuncture / Unknown 04/07/2024 6:01 AM EST 04/07/2024 6:39 AM EST Piyush Hallman MD LAB BLOOD ORDERABLES Final Re sult [facility] [address] [place] [address], * (ABNORMAL) Basic metabolic panel (04/07/2024 6:01 AM EST) Pathologist [facility] Sodium 139 133 - 145 mmol/L LAB CHEMISTRY METHOD 04/07/2024 7:46 AM [facility] Potassium 3.6 3.5 - 5.5 mmol/L LAB CHEMISTRY METHOD 04/07/2024 7:46 AM [facility] [facility] Chloride 107 96 - 110 mmol/L LAB CHEMISTRY METHOD 04/07/2024 7:46 AM [facility] CO2 27 21 - 32 mmol/L LAB CHEMISTRY METHOD 04/07/2024 7:46 AM [facility] Anion Gap 5 3 - 11 LAB CHEMISTRY METHOD 04/07/2024 7:46 AM [facility] Glucose 100 70 - 100 mg/dL LAB CHEMISTRY METHOD 04/07/2024 7:46 AM [facility] BUN 16 5 - 25 mg/dL LAB CHEMISTRY METHOD 04/07/2024 7:46 AM [facility] Creatinine 0.35(L) 0.50 - 1.10 mg/dL LAB CHEMISTRY METHOD 04/07/2024 7:46 AM EST [facility] eGFR 111 >=60 mL/min/1. 73m2 LAB CHEMISTRY METHOD 04/07/2024 7:46 AM [facility] Comment:Calculation based on the??Chronic Kidney Disease Epidemiology Collaboration (CKD-EPI) equation refit??without adjustment for race. BUN/Creatinine Ratio 45.7 LAB CHEMISTRY METHOD 04/07/2024 7:46 AM [facility] Calcium 7.3(L) 8.5 - 10.5 mg/dL LAB CHEMISTRY METHOD 04/07/2024 7:46 AM [facility] Blood Venous blood specimen / Unknown Venipuncture / Unknown 04/07/2024 6:01 AM EST 04/07/2024 6:39 AM EST us Piyush Hallman MD LAB BLOOD ORDERABLES Final Re sult Performing Organization Address [facility]/ZIP Co de Phone Number [facility] [address] [place] [address], [place] [phone] * Lavender tube (04/07/2024 5:58 AM EST) Extra Tube Hold for add-ons. 04/07/2024 8:01 AM [facility] Comment:Auto resulted. Blood Venous blood specimen / Unknown 04/07/2024 5:58 AM EST 04/07/2024 6:40 AM EST us Piyush Hallman MD LAB BLOOD ORDERABLES Final Re sult [facility] [address] [place] [address], [place] [phone] * Procalcitonin (04/05/2024 4:08 AM EST) Procalcitonin <0.02 <=0.16 ng/mL LAB CHEMISTRY METHOD 04/05/2024 11:53 AM EST [facility] Blood Venous blood specimen / Unknown Venipuncture / Unknown 04/05/2024 4:08 AM EST 04/05/2024 4:40 AM EST Narrative [facility] - 04/05/2024 11:53 AM EST Procalcitonin [...] MD LAB BLOOD ORDERABLES Final Re sult [facility] [address] [place] [address], * Phosphorus (04/05/2024 4:08 AM EST) [facility] Signature Phosphorus 2.6 2.5 - 4.5 mg/dL LAB CHEMISTRY METHOD 04/05/2024 5:16 AM EST [facility] Blood Venous blood specimen / Unknown Venipuncture / Unknown 04/05/2024 4:08 AM EST 04/05/2024 4:40 AM EST Cynthia SUAREZ LAB BLOOD ORDERABLES Final Result [facility] [address] [place] [address], [place] [phone] * (ABNORMAL) Magnesium (04/05/2024 4:08 AM EST) [facility] Magnesium 1.7(L) 1.9 - 2.6 mg/dL LAB CHEMISTRY METHOD 04/05/2024 5:15 AM EST [facility] Blood Venous blood specimen / Unknown Venipuncture / Unknown 04/05/2024 4:08 AM EST 04/05/2024 4:40 AM EST Cynthia SUAREZ LAB BLOOD ORDERABLES Final Result [facility] [address] [place] [address], [place] [phone] * (ABNORMAL) Basic metabolic panel (04/05/2024 4:08 AM EST) [facility] Sodium 142 133 - 145 mmol/L LAB CHEMISTRY METHOD 04/05/2024 5:15 AM [facility] Potassium 4.0 3.5 - 5.5 mmol/L LAB CHEMISTRY METHOD 04/05/2024 5:15 AM [facility] Chloride 110 96 - 110 mmol/L LAB CHEMISTRY METHOD 04/05/2024 5:15 AM [facility] CO2 25 21 - 32 mmol/L LAB CHEMISTRY METHOD 04/05/2024 5:15 AM [facility] Anion Gap 7 3 - 11 LAB CHEMISTRY METHOD 04/05/2024 5:15 AM [facility] Glucose 131(H) 70 - 100 mg/dL LAB CHEMISTRY METHOD 04/05/2024 5:15 AM [facility] BUN 19 5 - 25 mg/dL LAB CHEMISTRY METHOD 04/05/2024 5:15 AM [facility] Creatinine 0.43(L) 0.50 - 1.10 mg/dL LAB CHEMISTRY METHOD 04/05/2024 5:15 AM EST [facility] eGFR 105 >=60 mL/min/1. 73m2 LAB CHEMISTRY METHOD 04/05/2024 5:15 AM EST [facility] Comment:Calculation based on the??Chronic Kidney Disease Epidemiology Collaboration (CKD-EPI) equation refit??without adjustment for race. BUN/Creatinine Ratio 44.2 LAB CHEMISTRY METHOD 04/05/2024 5:15 AM EST [facility] Calcium 8.1(L) 8.5 - 10.5 mg/dL LAB CHEMISTRY METHOD 04/05/2024 5:15 AM [facility] Blood Venous blood specimen / Unknown Venipuncture / Unknown 04/05/2024 4:08 AM EST 04/05/2024 4:40 AM EST us Demarco Hunter MD LAB BLOOD ORDERABLES Final Res ult [facility] [address] [place] [address], [place] [phone] * B-type natriuretic peptide (04/04/2024 10:19 AM EST) BNP 4 <=100 pcg/mL LAB CHEMISTRY METHOD 04/04/2024 11:21 AM EST [facility] Blood Venous blood specimen / Unknown Venipuncture / Unknown 04/04/2024 10:19 AM EST 04/04/2024 10:30 AM EST us Loren SUAREZ LAB BLOOD ORDERABLES Final Resul t [facility] [address] [place] [address], [place] [phone] * Blood Culture, Peripheral #2 (04/04/2024 10:19 AM EST) Culture, Blood No growth at 5 days 04/09/2024 11:01 AM EST [facility] Blood Venous blood specimen / Unknown Venipuncture / Unknown 04/04/2024 10:19 AM EST 04/04/2024 10:30 AM EST [facility] MICROBIOLOGY - GENERAL ORDER ERAN Final Result Performing Organization Address [facility]/ZIP Co de Phone Number [facility] [address] [place] [address], [place] [phone] * Blood Culture, Peripheral #1 (04/04/2024 10:19 AM EST) Culture, Blood No growth at 5 days 04/09/2024 11:01 AM EST [facility] Blood Venous blood specimen / Unknown Venipuncture / Unknown 04/04/2024 10:19 AM EST 04/04/2024 10:30 AM EST [facility] MICROBIOLOGY - GENERAL ORDER ERAN Final Result Performing Organization Address [facility] de Phone Number [facility] [address] [place] [address], [place] [phone] * CT Angio Chest wo and/or w Contrast (04/04/2024 10:04 AM EST) Anatomical Region Laterality Modality Body Computed [...] Signed Date: 04/04/2024 10:57 ET Workstation ID: [id number] Transcribed By: Self Edit Transcribed Date: 04/04/2024 [...] Signed Date: 04/04/2024 10:57 ET Workstation ID: [id number] Transcribed By: Self Edit Transcribed Date: 04/04/2024 10:27 ET Loren SUAREZ IMG CT PROCEDURES Final Result * Culture urine (04/04/2024 9:52 AM EST) Culture, Urine No growth 04/05/2024 11:05 AM EST [facility] Urine Urine specimen obtained by clean catch procedure / Unknown Non-blood Collection / Unknown 04/04/2024 9:52 AM EST 04/04/2024 10:45 AM EST [facility] MICROBIOLOGY - GENERAL ORDER ERAN Final Result Performing Organization Address City/[facility]/ZIP Co de Phone Number [facility] [address] [place] [address], [place] [phone] * Rader urine culture tube (04/04/2024 9:52 AM EST) [facility] Extra Tube Hold for add-ons. 04/04/2024 12:02 PM [facility] Comment:Auto resulted. Urine Urine specimen obtained by clean catch procedure / Unknown Non-blood Collection / Unknown 04/04/2024 9:52 AM EST 04/04/2024 10:31 AM EST [place] LAB URINE ORDERABLES Final Resul t Performing Organization Address [facility] Co de Phone Number [facility] [address] [place] [address], [place] [phone] * (ABNORMAL) Urinalysis with reflex microscopic and culture (04/04/2024 9:52 AM EST) [facility] Specific Ronda Urine 1.027 1.003 - 1.030 LAB URINALYSIS - AUTOMATED METHOD 04/04/2024 10:45 AM [facility] pH, Urine 6.5 5.0 - 8.0 pH LAB URINALYSIS - AUTOMATED METHOD 04/04/2024 10:45 AM [facility] Leukocytes, Urine Trace(A) Negative LAB URINALYSIS - AUTOMATED METHOD 04/04/2024 10:45 AM [facility] Nitrite, Urine Negative Negative LAB URINALYSIS - AUTOMATED METHOD 04/04/2024 10:45 AM [facility] Protein, Urine Negative <=Trace mg/dL LAB URINALYSIS - AUTOMATED METHOD 04/04/2024 10:45 AM [facility] Glucose, Urine Negative Negative mg/dL LAB URINALYSIS - AUTOMATED METHOD 04/04/2024 10:45 AM [facility] Ketones, Urine Trace(A) Negative mg/dL LAB URINALYSIS - AUTOMATED METHOD 04/04/2024 10:45 AM [facility] Urobilinogen, Urine 0.2 0.2 - 1.0 mg/dL LAB URINALYSIS - AUTOMATED METHOD 04/04/2024 10:45 AM [facility] Bilirubin, Urine Negative Negative LAB URINALYSIS - AUTOMATED METHOD 04/04/2024 10:45 AM [facility] Blood, Urine Negative Negative LAB URINALYSIS - AUTOMATED METHOD 04/04/2024 10:45 AM [facility] RBC, Urine 4.3(H) 0 - 4 /HPF LAB URINALYSIS - AUTOMATED METHOD 04/04/2024 10:45 AM [facility] WBC, Urine 4.8(H) 0 - 4 /HPF LAB URINALYSIS - AUTOMATED METHOD 04/04/2024 10:45 AM [facility] Squamous Epithelial, Urine 64(H) 0 - 60 /LPF LAB URINALYSIS - AUTOMATED METHOD 04/04/2024 10:45 AM [facility] Bacteria, Urine Few(A) Negative /HPF LAB URINALYSIS - AUTOMATED METHOD 04/04/2024 10:45 AM [facility] Hyaline Casts, Urine 1.2 0 - 3 /LPF LAB URINALYSIS - AUTOMATED METHOD 04/04/2024 10:45 AM [facility] Urine Urine specimen obtained by clean catch procedure / Unknown Non-blood Collection / Unknown 04/04/2024 9:52 AM EST 04/04/2024 10:31 AM EST us Loren SUAREZ LAB URINE ORDERABLES Final Resul t [facility] [address] [place] [address], * Respiratory virus panel molecular study (04/04/2024 9:45 AM EST) [facility] Adenovirus Detection by PCR Not Detected Not Detected LAB MICROBIOLOGY METHOD 04/04/2024 10:55 AM EST [facility] Influenza A PCR Not Detected Not Detected LAB MICROBIOLOGY METHOD 04/04/2024 10:55 AM EST [facility] Influenza B PCR Not Detected Not Detected LAB MICROBIOLOGY METHOD 04/04/2024 10:55 AM EST [facility] Coronavirus 229E Not Detected Not Detected LAB MICROBIOLOGY METHOD 04/04/2024 10:55 AM [facility] Coronavirus HKU1 Not Detected Not Detected LAB MICROBIOLOGY METHOD 04/04/2024 10:55 AM [facility] Coronavirus OC43 Not Detected Not Detected LAB MICROBIOLOGY METHOD 04/04/2024 10:55 AM [facility] Coronavirus NL63 Not Detected Not Detected LAB MICROBIOLOGY METHOD 04/04/2024 10:55 AM [facility] Parainfluenza Virus 1 Not Detected Not Detected LAB MICROBIOLOGY METHOD 04/04/2024 10:55 AM [facility] Parainfluenza Virus 2 Not Detected Not Detected LAB MICROBIOLOGY METHOD 04/04/2024 10:55 AM [facility] Parainfluenza Virus 3 Not Detected Not Detected LAB MICROBIOLOGY METHOD 04/04/2024 10:55 AM [facility] Parainfluenza Virus 4 Not Detected Not Detected LAB MICROBIOLOGY METHOD 04/04/2024 10:55 AM EST [facility] RSV PCR Not Detected Not Detected LAB MICROBIOLOGY METHOD 04/04/2024 10:55 AM [facility] Human Metapneumovirus A and B Not Detected Not Detected LAB MICROBIOLOGY METHOD 04/04/2024 10:55 AM EST [facility] Rhinovirus/Entero virus Not Detected Not Detected LAB MICROBIOLOGY METHOD 04/04/2024 10:55 AM EST [facility] Bordetella pertussis Not Detected Not Detected LAB MICROBIOLOGY METHOD 04/04/2024 10:55 AM EST [facility] Bordetella parapertussis Not Detected Not Detected LAB MICROBIOLOGY METHOD 04/04/2024 10:55 AM [facility] Mycoplasma pneumo by PCR Not Detected Not Detected LAB MICROBIOLOGY METHOD 04/04/2024 10:55 AM EST [facility] Chlamydia pneumoniae Not Detected Not Detected LAB MICROBIOLOGY METHOD 04/04/2024 10:55 AM [facility] SARS COV-2 Not Detected Not Detected LAB MICROBIOLOGY METHOD 04/04/2024 10:55 AM [facility] Swab Both anterior nares / Unknown Non-blood Collection / Unknown 04/04/2024 9:45 AM EST 04/04/2024 9:53 AM EST [facility] - 04/04/2024 10:55 AM EST Testing was performed using the [employer] Respiratory Pathogen PCR Assay. All results must [...] MICROBIOLOGY - GENERAL ORDER ERAN Final Result [facility] [address] [place] [address], * Thyroid stimulating hormone with reflex to free t4 and free t3 (04/04/2024 9:19 AM EST) TSH 1.84 0.40 - 4.00 mcIU/mL LAB CHEMISTRY METHOD 04/04/2024 4:01 PM [facility] Blood Venous blood specimen / Unknown Venipuncture / Unknown 04/04/2024 9:19 AM EST 04/04/2024 9:53 AM EST Cynhtia SUAREZ LAB BLOOD ORDERABLES Final Result [facility] [address] [place] [address], * (ABNORMAL) Comprehensive metabolic panel (04/04/2024 9:19 AM EST) Sodium 142 133 - 145 mmol/L LAB CHEMISTRY METHOD 04/04/2024 11:12 AM [facility] Potassium 4.6 3.5 - 5.5 mmol/L LAB CHEMISTRY METHOD 04/04/2024 11:12 AM [facility] Chloride 107 96 - 110 mmol/L LAB CHEMISTRY METHOD 04/04/2024 11:12 AM [facility] CO2 29 21 - 32 mmol/L LAB CHEMISTRY METHOD 04/04/2024 11:12 AM [facility] Anion Gap 6 3 - 11 LAB CHEMISTRY METHOD 04/04/2024 11:12 AM [facility] Glucose 78 70 - 100 mg/dL LAB CHEMISTRY METHOD 04/04/2024 11:12 AM [facility] BUN 30(H) 5 - 25 mg/dL LAB CHEMISTRY METHOD 04/04/2024 11:12 AM [facility] Comment:Results verified by repeat testing Creatinine 0.52 0.50 - 1.10 mg/dL LAB CHEMISTRY METHOD 04/04/2024 11:12 AM [facility] eGFR 101 >=60 mL/min/1. 73m2 LAB CHEMISTRY METHOD 04/04/2024 11:12 AM [facility] Comment:Calculation based on the??Chronic Kidney Disease Epidemiology Collaboration (CKD-EPI) equation refit??without adjustment for race. BUN/Creatinine Ratio 57.7 LAB CHEMISTRY METHOD 04/04/2024 11:12 AM [facility] Calcium 9.3 8.5 - 10.5 mg/dL LAB CHEMISTRY METHOD 04/04/2024 11:12 AM [facility] AST (SGOT) 24 10 - 42 unit/L LAB CHEMISTRY METHOD 04/04/2024 11:12 AM [facility] ALT (SGPT) 45 10 - 60 unit/L LAB CHEMISTRY METHOD 04/04/2024 11:12 AM [facility] Alkaline Phosphatase 84 42 - 121 unit/L LAB CHEMISTRY METHOD 04/04/2024 11:12 AM [facility] Total Protein 6.7 6.0 - 8.0 g/dL LAB CHEMISTRY METHOD 04/04/2024 11:12 AM [facility] Albumin 3.1(L) 3.2 - 5.0 g/dL LAB CHEMISTRY METHOD 04/04/2024 11:12 AM [facility] Total Bilirubin 0.7 0.0 - 1.4 mg/dL LAB CHEMISTRY METHOD 04/04/2024 11:12 AM [facility] Blood Venous blood specimen / Unknown Venipuncture / Unknown 04/04/2024 9:19 AM EST 04/04/2024 9:53 AM EST Saray Darden DO LAB BLOOD ORDERABLES Elsa l Result [facility] [address] [place] [address], * Lactate (04/04/2024 9:19 AM EST) Lactate 1.0 0.4 - 2.0 mmol/L LAB CHEMISTRY METHOD 04/04/2024 10:28 AM [facility] Blood Venous blood specimen / Unknown Venipuncture / Unknown 04/04/2024 9:19 AM EST 04/04/2024 9:49 AM EST Saray Reyes Trell Adelso DO LAB BLOOD ORDERABLES Elsa l Result Performing Organization Address [facility]/ZIP Co de Phone Number [facility] [address] [place] [address], [place] [phone] * (ABNORMAL) Venous blood gas (04/04/2024 9:19 AM EST) Pathologist [facility] pH, Thanh 7.43(H) 7.32 - 7.42 pH 04/04/2024 9:53 AM EST [facility] pCO2, Thanh 46 41 - 51 mmHg 04/04/2024 9:53 AM [facility] pO2, Thanh 43(H) 25 - 40 mmHg 04/04/2024 9:53 AM [facility] HCO3, Venous 28.3(H) 22.0 - 26.0 mmol/L 04/04/2024 9:53 AM EST [facility] O2 Sat, Thanh 75.4 % 04/04/2024 9:53 AM [facility] Base Excess, Thanh 5.2(H) -2.0 - 2.0 mmol/L 04/04/2024 9:53 AM [facility] Blood Venous blood specimen / Unknown Venipuncture / Unknown 04/04/2024 9:19 AM EST 04/04/2024 9:53 AM EST Alvaerznina Darden DO LAB BLOOD ORDERABLES Elsa l Result [facility] [address] [place] [address], [place] [phone] * (ABNORMAL) CBC auto differential (04/04/2024 9:19 AM EST) Pathologist [facility] WBC 8.4 4.8 - 10.8 K/mcL LAB HEMETOLOGY METHOD 04/04/2024 10:26 AM [facility] RBC 4.20 3.80 - 4.80 M/mcL LAB HEMETOLOGY METHOD 04/04/2024 10:26 AM [facility] Hemoglobin 12.8 11.5 - 16.0 g/dL LAB HEMETOLOGY METHOD 04/04/2024 10:26 AM [facility] Hematocrit 41.7 35.0 - 47.0 % LAB HEMETOLOGY METHOD 04/04/2024 10:26 AM [facility] MCV 98.8(H) 79.0 - 98.0 FL LAB HEMETOLOGY METHOD 04/04/2024 10:26 AM [facility] MCH 30.3 27.0 - 32.0 pcg LAB HEMETOLOGY METHOD 04/04/2024 10:26 AM [facility] MCHC 30.7(L) 32.0 - 37.0 g/dL LAB HEMETOLOGY METHOD 04/04/2024 10:26 AM [facility] RDW 14.2 11.0 - 15.0 % LAB HEMETOLOGY METHOD 04/04/2024 10:26 AM [facility] Platelets 298 130 - 400 K/mcL LAB HEMETOLOGY METHOD 04/04/2024 10:26 AM [facility] MPV 8.8 7.0 - 11.0 FL LAB HEMETOLOGY METHOD 04/04/2024 10:26 AM [facility] NRBC 0.0 <1.0 % LAB HEMETOLOGY METHOD 04/04/2024 10:26 AM [facility] NRBC Absolute 0.00 <0.10 K/mcL LAB HEMETOLOGY METHOD 04/04/2024 10:26 AM [facility] Neutrophils Relative 61.8 % LAB HEMETOLOGY METHOD 04/04/2024 10:26 AM [facility] Lymphocytes Relative 22.6 % LAB HEMETOLOGY METHOD 04/04/2024 10:26 AM [facility] Monocytes Relative 10.5 % LAB HEMETOLOGY METHOD 04/04/2024 10:26 AM [facility] Eosinophils Relative 2.0 % LAB HEMETOLOGY METHOD 04/04/2024 10:26 AM [facility] Basophils Relative 1.1 % LAB HEMETOLOGY METHOD 04/04/2024 10:26 AM [facility] Immature Granulocytes Relative 2.0 % LAB HEMETOLOGY METHOD 04/04/2024 10:26 AM [facility] Neutrophils Absolute 5.17 1.50 - 7.00 K/mcL LAB HEMETOLOGY METHOD 04/04/2024 10:26 AM [facility] Lymphocytes Absolute 1.89 1.00 - 5.00 K/mcL LAB HEMETOLOGY METHOD 04/04/2024 10:26 AM [facility] Monocytes Absolute 0.88 0.20 - 1.00 K/mcL LAB HEMETOLOGY METHOD 04/04/2024 10:26 AM [facility] Eosinophils Absolute 0.17 0.00 - 0.50 K/mcL LAB HEMETOLOGY METHOD 04/04/2024 10:26 AM [facility] Basophils Absolute 0.09 0.00 - 0.20 K/mcL LAB HEMETOLOGY METHOD 04/04/2024 10:26 AM [facility] Immature Granulocytes Absolute 0.17(H) 0.00 - 0.03 K/mcL LAB HEMETOLOGY METHOD 04/04/2024 10:26 AM [facility] Blood Venous blood specimen / Unknown Venipuncture / Unknown 04/04/2024 9:19 AM EST 04/04/2024 9:53 AM EST us Ting Ho Trell Darden DO LAB BLOOD ORDERABLES Elsa l Result [facility] [address] [place] [address], [place] [phone] * ECG 12 lead (04/04/2024 9:10 AM EST) Ventricular Rate ECG 86 BPM GEMUSE Atrial Rate 86 BPM GEMUSE P-R Interval 106 ms GEMUSE QRS Duration 80 ms GEMUSE Q-T Interval 340 ms GEMUSE QTc 406 ms GEMUSE R [place] 53 degrees GEMUSE T [place] 60 degrees GEMUSE ECG Interpretation Sinus rhythm When compared with ECG of 24-MAR-2024 15:56, No significant change was found Confirmed by EDIL ARAIZA ([id number]) on 04/04/2024 8:07:00 PM GEMUSE 04/04/2024 9:10 AM EST 04/04/2024 8:07 PM EST Saray Darden DO ECG ORDERABLES Final Res ult [facility] * XR Chest 2 Views (04/04/2024 8:55 AM EST) Anatomical Region Laterality Modality Body Radiographic [...] Signed Date: 04/04/2024 09:08 ET Workstation ID: [id number] Transcribed By: Self Edit Transcribed Date: 04/04/2024 [...] Signed Date: 04/04/2024 09:08 ET Workstation ID: [id number] Transcribed By: Self Edit Transcribed Date: 04/04/2024 08:59 ET us Saray Eric Santiagony Adelso DO IMG XR PROCEDURES Final R esult documented in this encounter Visit Diagnoses Diagnosis Weakness generalized- Primary Other malaise and fatigue COPD exacerbation (CMS/HCC) Obstructive chronic bronchitis with exacerbation Hypotension, unspecified hypotension type Hypotension Unspecified hypotension COPD exacerbation (CMS/HCC) Obstructive chronic bronchitis with exacerbation documented in this encounter Admitting Diagnoses Diagnosis Hypotension Unspecified hypotension COPD exacerbation (CMS/HCC) Obstructive chronic bronchitis with exacerbation documented in this encounter Administered Medications Inactive Administered Medications - up to 3 most recent administrations Medication Order MAR Action Action Date Dose Rate Site acetaminophen (TYLENOL) tablet 650 mg 650 mg, oral, Every 6 hours PRN, mild pain, Starting on Tue04/04/24 at 1444 albumin human 25 % infusion 25 g 25 g, intravenous, Once, On Tue04/04/24 at 1119, For 1 dose, Do not exceed 1 mL/minute in patients with normal plasma volume; 3 mL/minute in patients with hypoproteinemia., Indications: Hypotension, hypoalbuminemiaIndications:Hypo tension, hypoalbuminemia New Bag 04/04/2024 12:22 PM EST 25 g 100 mL/hr albuterol 2.5 mg /3 mL (0.083 %) nebulizer solution 2.5 mg 2.5 mg, nebulization, Every 4 hours PRN, wheezing, shortness of breath, Starting on Tue04/04/24 at 1241 atorvastatin (LIPITOR) tablet 40 mg 40 mg, oral, Nightly, First dose on Tue04/04/24 at 2100 Given 04/06/2024 10:07 PM EST 40 mg Given 04/05/2024 9:16 PM EST 40 mg Given 04/04/2024 8:37 PM EST 40 mg azithromycin (ZITHROMAX) tablet 250 mg 250 mg, oral, Daily, First dose on Tue04/05/24 at 1300, For 7 days, Indication: Other, Specify: copd exacerbation Given 04/07/2024 8:41 AM EST 250 mg Given 04/06/2024 9:54 AM EST 250 mg Given 04/05/2024 12:55 PM EST 250 mg budesonide (PULMICORT) 0.5 mg/2 mL nebulizer solution 0.5 mg 0.5 mg, nebulization, Daily, First dose on Tue04/04/24 at 1241, Rinse mouth with water after use to reduce aftertaste and incidence of candidiasis. Do not swallow. Therapeutic substitution for TRELEGY ELLIPTA is budesonide neb once daily, formoterol neb twice daily, and revefenacin neb once daily. Given 04/07/2024 7:50 AM EST 0.5 mg Given 04/06/2024 8:44 AM EST 0.5 mg Given 04/05/2024 8:31 AM EST 0.5 mg cefTRIAXone (ROCEPHIN) 1 g in sterile water 10 mL IV syringe 1 g, intravenous, at 200 mL/hr, Administer over 3 Minutes, Once, On Tue04/04/24 at 0934, For 1 dose, Do not administer simultaneously with any calcium containing solutions via a Y-site in any patient., Indication: Sepsis, Suspected source: Pneumonia Given 04/04/2024 10:52 AM EST 1 g 200 mL/hr enoxaparin (LOVENOX) injection 30 mg 30 mg, subcutaneous, Every 24 hours scheduled, First dose on Tue04/04/24 at 1241, Indication: VTE/PE Prophylaxis Given 04/07/2024 8:41 AM EST 30 mg Right Lower Abdomen Given 04/06/2024 9:55 AM EST 30 mg Ri ght Lower Abdomen Given 04/05/2024 8:04 AM EST 30 mg Ri ght Lower Abdomen formoterol (PERFOROMIST) 20 mcg/2 mL nebulizer solution 20 mcg 20 mcg, nebulization, 2 times daily, First dose on Tue04/04/24 at 1241, Therapeutic substitution for TRELEGY ELLIPTA is budesonide neb once daily, formoterol neb twice daily, and revefenacin neb once daily. Given 04/07/2024 7:50 AM EST 20 mcg Given 04/06/2024 8:44 AM EST 20 mcg Given 04/05/2024 7:42 PM EST 20 mcg guaiFENesin (MUCINEX) 12 hr tablet 600 mg 600 mg, oral, Every 12 hours scheduled, First dose on Tue04/05/24 at 1300, Administer with plenty of fluids to ensure proper action. Do not crush, chew, or split. Given 04/07/2024 8:41 AM EST 600 mg Given 04/06/2024 10:07 PM EST 600 mg Given 04/06/2024 9:55 AM EST 600 mg influenza trivalent (65 years and up) (FLUAD) (PF) adjuvanted vaccine 0.5 mL 0.5 mL, intramuscular, During hospitalization, Starting on Tue04/05/24 at 1257, For 1 dose iopamidoL (ISOVUE-370) 370 mg iodine /mL (76 %) injection 90 mL 90 mL, intravenous, Once in imaging, Starting on Tue04/04/24 at 0958, For 1 dose Given 04/04/2024 9:59 AM EST 90 mL ipratropium-albuteroL (DUONEB) 0.5-2.5 mg/3 mL nebulizer solution 3 mL 3 mL, nebulization, Once, On Tue04/04/24 at 0842, For 1 dose Given 04/04/2024 9:34 AM EST 3 mL lactated Ringer's infusion 75 mL/hr, intravenous, Continuous, Starting on Tue04/04/24 at 1446, For 12 hours New Bag 04/04/2024 3:05 PM EST 75 mL/hr 75 mL/hr lactated Ringer's infusion 75 mL/hr, intravenous, Continuous, Starting on Tue04/06/24 at 1415, For 24 hours New Bag 04/07/2024 4:01 AM EST 75 mL/hr 75 mL/hr New Bag 04/06/2024 2:26 PM EST 75 mL/hr 75 mL/hr magnesium oxide (MAG-OX) tablet 400 mg 400 mg, oral, Daily, First dose on Tue04/05/24 at 0900 Given 04/07/2024 8:41 AM EST 400 mg Given 04/06/2024 9:55 AM EST 400 mg Given 04/05/2024 9:02 AM EST 400 mg magnesium sulfate 2 gram/50 mL (4 %) IVPB 2 g 2 g, intravenous, at 25 mL/hr, Administer over 2 Hours, Once, On Tue04/07/24 at 0830, For 1 dose New Bag 04/07/2024 8:41 AM EST 2 g 25 mL/hr methylPREDNISolone sodium succ (SOLU-Medrol) injection 125 mg 125 mg, intravenous, Once, On Tue04/04/24 at 0924, For 1 dose, Reconstitute each 125 mg vial with 2 mL sterile water for injection to a concentration of 62.5 mg/mL. Given 04/04/2024 10:15 AM EST 125 mg midodrine (PROAMATINE) tablet 5 mg 5 mg, oral, 3 times daily before meals, First dose on Tue04/04/24 at 1239 Given 04/05/2024 8:04 AM EST 5 mg Given 04/04/2024 5:18 PM EST 5 mg Given 04/04/2024 2:29 PM EST 5 mg midodrine (PROAMATINE) tablet 5 mg 5 mg, oral, 2 times daily PRN, SBP less than 90, Starting on Tue04/05/24 at 1300 Given 04/06/2024 4:50 PM EST 5 mg midodrine (PROAMATINE) tablet 5 mg 5 mg, oral, 3 times daily before meals, First dose (after last modification) on Tue04/07/24 at 0900 Given 04/07/2024 11:59 AM EST 5 mg ondansetron (PF) (ZOFRAN) injection 4 mg 4 mg, intravenous, Every 6 hours PRN, nausea, vomiting, Starting on Tue04/06/24 at 1348 Given 04/06/2024 2:38 PM EST 4 mg pantoprazole (PROTONIX) EC tablet 40 mg 40 mg, oral, Every morning before breakfast, First dose on Allison 04/05/24 at 0700, Do not crush, chew, or split. Given 04/07/2024 6:45 AM EST 40 mg Given 04/06/2024 9:58 AM EST 40 mg Given 04/05/2024 8:04 AM EST 40 mg potassium chloride (KLOR-CON M20) CR tablet 20 mEq 20 mEq, oral, Once, On 04/07/24 at 0830, For 1 dose, Tablet may be swallowed whole (do not crush/chew/suck on) OR broken in half and each half swallowed separately OR dissolved (whole tablet) in ~4 ounces of water (allow ~2 minutes to dissolve, stir well and administer immediately). Given 04/07/2024 8:41 AM EST 20 mEq predniSONE (DELTASONE) tablet 40 mg 40 mg, oral, Daily, First dose on 04/04/24 at 1243, For 5 days Given 04/07/2024 8:41 AM EST 40 mg Given 04/06/2024 9:55 AM EST 40 mg Given 04/05/2024 8:04 AM EST 40 mg revefenacin (YUPELRI) 175 mcg/3 mL nebulizer solution 175 mcg 175 mcg, nebulization, Daily, First dose on Tue04/04/24 at 1241, Therapeutic substitution for TRELEGY ELLIPTA is budesonide neb once daily, formoterol neb twice daily, and revefenacin neb once daily. Given 04/07/2024 7:50 AM EST 175 mcg Given 04/06/2024 8:44 AM EST 175 mcg Given 04/05/2024 8:31 AM EST 175 mcg sodium chloride 0.9 % bolus 1,000 mL 1,000 mL, intravenous, at 2,000 mL/hr, Administer over 30 Minutes, Once, On Tue04/04/24 at 0842, For 1 dose New Bag 04/04/2024 9:34 AM EST 1,000 mL 2000 mL/hr sodium chloride 0.9 % bolus 500 mL 500 mL, intravenous, at 1,000 mL/hr, Administer over 30 Minutes, Once, On Tue04/04/24 at 1136, For 1 dose New Bag 04/04/2024 11:46 AM EST 500 mL 1000 mL/hr sodium chloride 0.9 % flush 10 mL 10 mL, intravenous, Once, On Tue04/04/24 at 0959, For 1 dose Given 04/04/2024 9:59 AM EST 10 mL vancomycin (VANCOCIN) 1 g in sodium chloride 0.9 % 250 mL IVPB 1 g, intravenous, at 250 mL/hr, Administer over 60 Minutes, Once, On Tue04/04/24 at 0934, For 1 dose, Indication: Sepsis, Suspected source: Pneumonia New Bag 04/04/2024 10:53 AM EST 1 g 25 0 mL/hr documented in this encounter Discontinued Medications Medication Sig Discontinue Reason Start Date End Da te dextromethorphan-guaiF ENesin (ROBITUSSIN-DM) 10-100 mg/5 mL syrup Take 10 mL by mouth every 4 (four) hours if needed for cough for up to 10 days. 03/25/2024 04/04/2024 atorvastatin (LIPITOR) 20 mg tablet Take 20 mg by mouth daily. Entered in Error 04/04/2024 azithromycin (ZITHROMAX) 500 mg tablet Take 1 tablet (500 mg total) by mouth at bedtime for 3 doses. Stop Taking at Discharge 03/25/2024 04/07/2024 cefpodoxime (VANTIN) 200 mg tablet Take 1 tablet (200 mg total) by mouth 2 (two) times a day for 5 days. Stop Taking at Discharge 03/25/2024 04/07/2024 predniSONE (DELTASONE) 10 mg tablet Take 4 tablets (40 mg total) by mouth 1 (one) time each day for 2 days, THEN 3 tablets (30 mg total) 1 (one) time each day for 2 days, THEN 2 tablets (20 mg total) 1 (one) time each day for 2 days, THEN 1 tablet (10 mg total) 1 (one) time each day for 2 days. Stop Taking at Discharge 03/25/2024 04/07/2024 atorvastatin (LIPITOR) 10 mg tablet Take 1 tablet (10 mg total) by mouth 1 (one) time each day. Stop Taking at Discharge 02/03/2024 04/07/2024 doxycycline (VIBRAMYCIN) 100 mg capsule Take 1 capsule (100 mg total) by mouth 2 (two) times a day. for 7 days Stop Taking at Discharge 04/03/2024 04/07/2024 documented as of this encounter Historical Medications * This list may reflect changes made after this encounter. benzonatate (TESSALON) 200 mg capsule Take 1 capsule (200 mg total) by mouth 3 (three) times a day if needed for cough. for 7 days 04/03/2024 doxycycline (VIBRAMYCIN) 100 mg capsule Take 1 capsule (100 mg total) by mouth 2 (two) times a day. for 7 days 04/03/2024 04/07/2024 atorvastatin (LIPITOR) 10 mg tablet Take 1 tablet (10 mg total) by mouth 1 (one) time each day. 02/03/2024 04/07/2024 added in this encounter Active and Recently Administered Medications Times are shown in EST. Scheduled Medication Order 04/05/2024 04/06/2024 04/07/2024 atorvastatin (LIPITOR) tablet 40 mg 40 mg, oral, Nightly, First dose on Tue04/04/24 at 2100 2116 (Given - Provider: Dawna Oneill RN) 2207 (Given - Provider: Dawna Oneill RN) azithromycin (ZITHROMAX) tablet 250 mg 250 mg, oral, Daily, First dose on Tue04/05/24 at 1300, For 7 days, Indication: Other, Specify: copd exacerbation 1255 (Given - Provider: Afshan Ahuja RN) 0954 (Given - Provider: Elaine Red, KAMRAN) 0841 (Given - Provider: Elaine Red, KAMRAN) budesonide (PULMICORT) 0.5 mg/2 mL nebulizer solution 0.5 mg(Linked Group 1) 0.5 mg, nebulization, Daily, First dose on Tue04/04/24 at 1241, Rinse mouth with water after use to reduce aftertaste and incidence of candidiasis. Do not swallow. Therapeutic substitution for TRELEGY ELLIPTA is budesonide neb once daily, formoterol neb twice daily, and revefenacin neb once daily. 0831 (Given - Provider: Yamini Tucker) 0844 (Given - Provider: Yamini Tucker) 0750 (Given - Provider: Moon Schmidt) enoxaparin (LOVENOX) injection 30 mg 30 mg, subcutaneous, Every 24 hours scheduled, First dose on Tue04/04/24 at 1241, Indication: VTE/PE Prophylaxis 0804 (Given - Provider: Dawna Kidd RN) 0955 (Given - Provider: Elaine Red, KAMRAN) 0841 (Given - Provider: Elaine Red, KAMRAN) formoterol (PERFOROMIST) 20 mcg/2 mL nebulizer solution 20 mcg(Linked Group 1) 20 mcg, nebulization, 2 times daily, First dose on Tue04/04/24 at 1241, Therapeutic substitution for TRELEGY ELLIPTA is budesonide neb once daily, formoterol neb twice daily, and revefenacin neb once daily. 08 (Given - Provider: Yamini Tucker)1941 (Given - Provider: Jeny Reyes) 0844 (Given - Provider: Yamini Tucker)2022 (Not Given - Provider: Gloria Duran - Reason: Patient/Resident/Agen t refused - education provided ) 0750 (Given - Provider: Moon Schmidt) guaiFENesin (MUCINEX) 12 hr tablet 600 mg 600 mg, oral, Every 12 hours scheduled, First dose on Tue04/05/24 at 1300, Administer with plenty of fluids to ensure proper action. Do not crush, chew, or split. 1255 (Given - Provider: Afshan Ahuja RN)5 (Given - Provider: Dawna Oneill RN) 0955 (Given - Provider: Elaine Red, KAMRAN)2207 (Given - Provider: Dawna Oneill RN) 0841 (Given - Provider: Elaine Red RN) influenza trivalent (65 years and up) (FLUAD) (PF) adjuvanted vaccine 0.5 mL 0.5 mL, intramuscular, During hospitalization, Starting on Tue04/05/24 at 1257, For 1 dose magnesium oxide (MAG-OX) tablet 400 mg 400 mg, oral, Daily, First dose on Tue04/05/24 at 0900 0902 (Given - Provider: Afshan Ahuja RN) 0955 (Given - Provider: Elaine Red, KAMRAN) 0841 (Given - Provider: Elaine Red RN) magnesium sulfate 2 gram/50 mL (4 %) IVPB 2 g (COMPLETED) 2 g, intravenous, at 25 mL/hr, Administer over 2 Hours, Once, On 04/07/24 at 0830, For 1 dose 0841 (New Bag - Provider: Elaine Red RN)1041 (Stopped - Provider: Elaine Red RN) midodrine (PROAMATINE) tablet 5 mg (CANCELED) 5 mg, oral, 3 times daily before meals, First dose on Tue04/04/24 at 1239 0804 (Given - Provider: Dawna Kidd RN) midodrine (PROAMATINE) tablet 5 mg 5 mg, oral, 3 times daily before meals, First dose (after last modification) on 04/07/24 at 0900 1158 (Not Given - Provider: Elaine Red RN - Reason: Medication not available)1159 (Given - Provider: Elaine Red RN) pantoprazole (PROTONIX) EC tablet 40 mg 40 mg, oral, Every morning before breakfast, First dose on Allison 04/05/24 at 0700, Do not crush, chew, or split. 0804 (Given - Provider: Dawna Kidd RN) 0958 (Given - Provider: Elaine Red RN) 0645 (Given - Provider: Dawna Oneill RN) potassium chloride (KLOR-CON M20) CR tablet 20 mEq (COMPLETED) 20 mEq, oral, Once, On 04/07/24 at 0830, For 1 dose, Tablet may be swallowed whole (do not crush/chew/suck on) OR broken in half and each half swallowed separately OR dissolved (whole tablet) in ~4 ounces of water (allow ~2 minutes to dissolve, stir well and administer immediately). 0841 (Given - Provider: Elaine Red RN) predniSONE (DELTASONE) tablet 40 mg 40 mg, oral, Daily, First dose on Tue04/04/24 at 1243, For 5 days 0804 (Given - Provider: Dawna Kidd RN) 0955 (Given - Provider: Elaine Red RN) 0841 (Given - Provider: Elaine Red RN) revefenacin (YUPELRI) 175 mcg/3 mL nebulizer solution 175 mcg(Linked Group 1) 175 mcg, nebulization, Daily, First dose on Tue04/04/24 at 1241, Therapeutic substitution for TRELEGY ELLIPTA is budesonide neb once daily, formoterol neb twice daily, and revefenacin neb once daily. 0831 (Given - Provider: Yamini Tucker) 0844 (Given - Provider: Yamini Tucker) 0750 (Given - Provider: Moon Schmidt) Continuous Medication Order 04/05/2024 04/06/2024 04/07/2024 lactated Ringer's infusion 75 mL/hr, intravenous, Continuous, Starting on Tue04/06/24 at 1415, For 24 hours 1426 (New Bag - Provider: Elaine Red RN) 0401 (New Bag - Provider: Dawna Oneill RN)1521 (Due: Stopped) PRN Medication Order 04/05/2024 04/06/2024 04/07/2024 acetaminophen (TYLENOL) tablet 650 mg 650 mg, oral, Every 6 hours PRN, mild pain, Starting on Tue04/04/24 at 1444 albuterol 2.5 mg /3 mL (0.083 %) nebulizer solution 2.5 mg 2.5 mg, nebulization, Every 4 hours PRN, wheezing, shortness of breath, Starting on Tue04/04/24 at 1241 midodrine (PROAMATINE) tablet 5 mg (CANCELED) 5 mg, oral, 2 times daily PRN, SBP less than 90, Starting on Tue04/05/24 at 1300 2117 (Return to Cabinet - Provider: Dawna Oneill RN) 1650 (Given - Provider: Elaine Red, KAMRAN) ondansetron (PF) (ZOFRAN) injection 4 mg 4 mg, intravenous, Every 6 hours PRN, nausea, vomiting, Starting on Tue04/06/24 at 1348 1438 (Given - Provider: Elaine Red, KAMRAN) Linked Groups Order Group 1: formoterol (PERFOROMIST) 20 mcg/2 mL nebulizer solution 20 mcgJump to med 20 mcg, nebulization, 2 times daily, First dose on Tue04/04/24 at 1241, Therapeutic substitution for TRELEGY ELLIPTA is budesonide neb once daily, formoterol neb twice daily, and revefenacin neb once daily. And budesonide (PULMICORT) 0.5 mg/2 mL nebulizer solution 0.5 mgJump to med 0.5 mg, nebulization, Daily, First dose on Tue04/04/24 at 1241, Rinse mouth with water after use to reduce aftertaste and incidence of candidiasis. Do not swallow. Therapeutic substitution for TRELEGY ELLIPTA is budesonide neb once daily, formoterol neb twice daily, and revefenacin neb once daily. And revefenacin (YUPELRI) 175 mcg/3 mL nebulizer solution 175 mcgJump to med 175 mcg, nebulization, Daily, First dose on Tue04/04/24 at 1241, Therapeutic substitution for TRELEGY ELLIPTA is budesonide neb once daily, formoterol neb twice daily, and revefenacin neb once daily. documented in this encounter Orders Medications Ordered That Adithya ht Not Have Been Administered Count Last Ordered Date First Ordered Date influenza trivalent (65 year s and up) (FLUAD) (PF) adjuvanted vaccine 0.5 mL 1 04/05/2024 acetaminophen (TYLENOL) tablet 650 mg 1 albuterol 2.5 mg /3 mL (0.08 3 %) nebulizer solution 2.5 mg 1 04/04/2024 sodium chloride 0.9 % bolus 1,000 mL 1 03/11 Consult Count Last Ordered Date First Orde red Date IP CONSULT TO NUTRITION SERVICES 1 04/04/19 25 PT Count Last Ordered Date First Orde red Date PT EVAL AND TREAT 1 04/04/2024 Admission Count Last Ordered Date First Orde red Date INITIATE OBSERVATION STATUS 1 04/04/2024 Transfer Count Last Ordered Date First Orde red Date ED TO FLOOR BED REQUEST 1 04/04/2024 Discharge Count Last Ordered Date First Orde red Date DISCHARGE PATIENT 1 04/07/2024 documented in this encounter Additional Health Concerns Infection Onset Date Last Indicated Resolved Time Respiratory Rule-Out 04/04/2024 04/04/2024 025 10:55 AM EST COVID-19 Rule-Out 04/04/2024 04/04/2024 04/04/2024 10:55 AM EST documented as of this encounter Care Teams Compliance Associate Relationship Specialty Start Date End Date Donna Romero MD [address] [place] [address] PCP - General Internal Medicine 10/30/18 documented as of this encounter
--- OUTSIDE RECORDS SUMMARY | 2024-04-12 12:12 | XMS_ITS | Encounter Summary ---
Author Organization [facility] Address [address] [place] [address] Care Team Providers Care Four Slide Machine Setter Name Role Phone Donna Romero MD Primary Care Provider [phone] Reason for Referral * Therapy (Routine) - Authorized Specialty Diagnoses / Procedures Referred By Contac t Referred To Contact Pulmonology Diagnoses Chronic obstructive pulmonary disease, unspecified COPD type ([facility]) Procedures Pulmonary function testing: Spirometry with Bronchodilator, Carbon Monoxide Diffusing Capacity Ana Flaherty MD [address] [address] Phone: tel: [facility]: [facility] [address] [address] Phone: tel: fax: Referral ID Status Reason Start Date Expiration Date V isits Requested Visits Authorized [id number] Authorized 04/12/2024 04/12/2025 1 1 Reason for Visit * Reason Comments COPD Pneumonia Encounter Details Date Type Department Care Team ([facility] st Contact Info) Description 04/12/2024 8:30 AM EST [facility] [address] [phone] Ana Flaherty MD [address] [id number] Chronic obstructive pulmonary disease, unspecified COPD type (CMS/HCC) (Primary Dx); Hypoxemia Social History Tobacco Use Types Packs/Day Years [...] for your loved ones. For example, child support officer or elderly care for an older adult? [...] Pulse 77 04/12/2024 8:28 AM EST Temperature - - Respiratory Rate 16 04/12/2024 8:28 AM EST Oxygen Saturation 96% 04/12/2024 8:28 AM EST Inhaled Oxygen Concentration - - Weight 39.8 kg (87 lb 12.8 oz) 04/12/2024 8:28 A M EST Height 149.9 cm (4' 11 ) 04/12/2024 8:28 AM EST Body Mass Index 17.73 04/12/2024 8:28 AM EST documented in this encounter Ordered Prescriptions Prescription Sig Dispense Quantity Refills Last Filled Start Date End Date fluticasone-umecli dinium-vilanterol (Trelegy Ellipta) 200-62.5-25 mcg inhaler Inhale 1 puff (200 mcg total) by mouth 1 (one) time each day. Rinse mouth with water after use to reduce aftertaste and incidence of candidiasis. Do not swallow. 1 each 11 04/12/2024 documented in this encounter Plan of Treatment Upcoming Encounters Date Type Department Care Team (Late st Contact Info) Description 07/09/2024 10:30 AM EDT Appointment [facility] CT Scan [address] [place] [phone] 07/19/2024 9:00 AM EDT Ancillary Procedure Pulmonol - [facility] [address] [facility] [address] [place] [phone] Adarsh Henriquez 07/19/2024 10:00 AM EDT Office Visit Pulmonolgy - [facility] [address] [facility] [address] [place] [phone] Ana Flaehrty MD [address] [facility] [address] [place] [address] Scheduled Orders Name Type Priority Associated Diagnoses Orde r Schedule Pulmonary function testing: Spirometry with Bronchodilator, Carbon Monoxide Diffusing Capacity PFT Routine Chronic obstructive pulmonary disease, unspecified COPD type (CMS/HCC) 1 Occurrences starting 04/12/2024 until 04/12/2025 documented as of this encounter Visit Diagnoses Diagnosis Chronic obstructive pulmonary disease, unspecified COPD type (CMS/HCC)- Primary Hypoxemia documented in this encounter Discontinued Medications Medication Sig Discontinue Reason Start Date End Da te fluticasone-umeclidinium -vilanterol (Trelegy Ellipta) 100-62.5-25 mcg inhaler Inhale 1 puff (100 mcg total) by mouth 1 (one) time each day. 04/12/2024 documented as of this encounter Care Teams Four Slide Machine Setter Relationship Specialty Start Date End Date Donna Romero MD [address] [place] [address] PCP - General Internal Medicine 10/30/18 documented as of this encounter
== END 2024-04-12 11:04 | disposition home or self-care (01) ==
PROVIDERS: PCP Internal Medicine
DX: M81.0 Age-related osteoporosis without current pathological fracture (principal)

== ENCOUNTER → 2024-04-12 10:19 | Outpatient (BNVA) | payer MEDICAID, SELFPAY | PROVIDERS: PCP Internal Medicine | DX: M81.0 Age-related osteoporosis without current pathological fracture (principal); Z01.89 Encounter for other specified special examinations | CPT/HCPCS: 96372; J3111 ==

== ENCOUNTER 2024-04-17 07:42 | Outpatient (REF) | payer MEDICAID, SELFPAY ==
--- OUTSIDE RECORDS SUMMARY | 2024-04-17 07:45 | XMS_ITS | Encounter Summary ---
Author Organization [facility] Address [address] [place] [address] Care Team Providers Care Paperhanger Contractor Name Role Phone Donna Romero MD Primary Care Provider [phone] Reason for Visit * Reason Comments Shortness of Breath D/c on 03/25 with PNA , chest xray ? Fluid in lungs * Auth/Cert (Routine) Specialty Diagnoses / Procedures Referred By Contthomas t Referred To Contact Diagnoses Hypotension Procedures [facility] IP[facility]OBS CARE ADMIT/DISCHARGE SAME DATE MODERATE LEVEL Demarco Hunter MD [address] [place], [place] [id number] Phone: tel: fax: [facility] Emergency [address] [place] [address] Phone: tel: Referral ID Status Reason Start Date Expiration Date Visits Re quested Visits Authorized [id number] 1 1 Encounter Details Date Type Department Care Team (Late st Contact Info) Description 04/04/2024 8:25 AM EST - 04/07/2024 1:21 PM EST Emergency [facility] Intermediate Care Unit [address] [place] [address] Saray Darden DO [address] [place] [address] Adam Hart MD [address] [place] [address] Demarco Hunter MD [address] [place] [address] Piyush Hallman MD [address] [place] [address] COPD exacerbation (CMS/HCC) (Primary Dx); Hypotension, unspecified [...] care for your loved ones. For example, attendant child activity or elderly care for an older adult? [...] Admitting Provider Demarco Hunter MD Discharge Provider Pyiush Hallman MD Primary Care Physician Donna Romero MD Admission Date 04/04/2024 Discharge Date 04/07/2024 Summary of Hospital Problems Primary Discharge Diagnosis: Weakness generalized Secondary Discharge Diagnosis: COPD exacerbation Discharge Disposition Home or Self Care Code Status at Discharge: Full Code - Default Hospital Course Summary Presenting Problem/History of Present Illness Hypotension [I95.9] COPD exacerbation ([facility]) [J44.1] Hypotension, unspecified hypotension type [I95.9] Chief Complaint Patient presents with ??? Shortness [...] infected. EKG showednormal sinus rhythm with short AK, no significant change from prior, 86 bpm. 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 Patient has outpatient follow up with computational mathematician. Continue with albuterol, Trelegy, Azithromycin and prednisone taper. May be a candidate for Daliresp, will defer to computational mathematician. CT chest shows no acute findings, no [...] DARNELL BOOKER Reviewed and Electronically Signed By: DARNLEL BOOKER Signed Date: 04/04/2024 10:57 ET Worksta tion ID: [id number] Transcribed By: Self Edit Transcribed Date: 04/04/2024 [...] stable. -------- FINAL REPORT -------- Dictated By: PAT BOOKERictated Date: 04/04/2024 08:59 ET Assigned Physician: DARNELL BOOKER Reviewed and Electronically Signed By: DARNELL BOOKER Signed Date: 04/04/2024 09:08 ET Workstation ID: [id number] Transcribed By: Self Edit Transcribed Date: 04/04/2024 [...] Trelegy Ellipta 100-62.5-25 mcg inhaler Generic drug: vxmyvzyryhz-rxtzsanjvcbr-kcuhvsvajg Inhale 1 puff (100 mcg total) by mouth 1 (one) time each day. STOP taking these medications cefpodoxime 200 mg tablet Commonly known as: VANTIN doxycycline 100 mg capsule Commonly known as: VIBRAMYCIN Where to Get Your Medications These medications were sent to [id number] - [place] - [address] [facility] [address] [place] [address] azithromycin 250 mg tablet guaiFENesin 600 mg [...] 04/12/2024 8:30 AM Ana Flaherty MD [facility] @DCLABSOTHER@ Test Results Pending at Discharge [...] through Care Everywhere. * COPD Exacerbation Plan (Amharic) documented in this encounter Medications at Time of Discharge atorvastatin (LIPITOR) 10 mg tablet Take 1 tablet (10 mg total) by mouth at bedtime. 04/05/2024 benzonatate (TESSALON) 200 mg capsule Take 1 capsule (200 mg total) by mouth 3 (three) times a day if needed for cough. for 7 days 04/03/2024 magnesium oxide (MAG-OX) 400 mg (241.3 elemental [...] under the skin every 30 (thirty) days. azithromycin (ZITHROMAX) 250 mg tablet Take 1 tablet (250 mg total) by mouth 1 (one) time each day for 6 doses. 6 each 04/06/2024 5 guaiFENesin (MUCINEX) 600 mg 12 hr tablet Take 1 tablet (600 mg total) by mouth every 12 (twelve) hours for 10 days. Do not crush, chew, or split. 20 each 04/06/2024 5 fluticasone-umec lidinium-vilante rol (Trelegy Ellipta) 100-62.5-25 mcg [...] for 3 days. 15 each 04/06/2024 5 atorvastatin (LIPITOR) 10 mg [...] chew, or split. 20 each 04/06/2024 5 documented in this encounter Discharge Disposition [...] a 68 y.o. female : 1955 MR#: [id number] ASSESSMENT & PLAN Assessment/Plan Principal Problem: Weakness generalized Active Problems: COPD exacerbation ([facility]) Hypotension Jamila Ramírez is a 68 y.o. 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 Recent admission 03/24-03/25 for COPD exacerbation and multifocal pneumonia. [facility], increased nonproductive [...] Signed Date: 04/04/2024 10:57 ET Workstation ID: [id number] Transcribed By: Self Edit Transcribed Date: 04/04/2024 [...] Signed Date: 04/04/2024 09:08 ET Workstation ID: [id number] Transcribed By: Self Edit Transcribed Date: 04/04/2024 [...] Relationship) for DC Planning Katerine Dickens (Daughter) [phone] (Home Phone) Living Arrangements Children Type of Residence Private residence Assistive Devices Walker;Oxygen Support Systems Children Medication Coverage Has Med Coverage Under Insurance Plan Yes Medication Affordability No concerns related to payment for meds Anticipated Discharge Needs Home Health RN;PT Discipline following for SNF placement Prison Classification Counselor Informed Choice Informed Choice Given? Yes Transportation Transportation at discharge Family ICC met w Pt at bed side and confirmed demographics. GEM: 04/06 Barriers: hypotension, DuoNeb, 125 mg IV Solu-Medrol, vancomycin, ceftriaxone and 25 g of albumin, IVF, PT eval Dispo: [employer] for nocturnal O2, Daughter to bring in a portable tank for D/C. * Nataly Jazmin - 04/05/2024 2:26 PM EST [facility] Physical Therapy Evaluation & Treatment PT [...] is a 68 y.o. female admitted to [facility] on 04/04/2024. Patient Active Problem List Diagnosis COPD exacerbation ([facility]) Cyst of mediastinum Depression Hiatal hernia Nocturnal hypoxia Ventral hernia without obstruction or gangrene Multifocal pneumonia Hypotension Weakness generalized Past Medical History: Diagnosis Date COPD (chronic obstructive pulmonary disease) (CMS/HCC) DX:COPD (chronic obstructive pulmonary disease) ([facility]) Depression 04/24/2017 DX:Depression Dysphagia DX:Dysphagia Esophageal reflux DX:Esophageal reflux Hiatal hernia DX:Hiatal hernia Lung cancer (CMS/HCC) DX:Lung cancer (HCC) Nocturnal hypoxia 04/24/2017 DX:Nocturnal hypoxia Ventral hernia without obstruction or gangrene DX:Ventral hernia without obstruction or gangrene Past Surgical History: Procedure Laterality Date OTHER SURGICAL HISTORY PROCEDURE: AK RMVL LUNG OTH/THN PNUMEC RESXN-PLCTJ EMPHY LUNG OTHER SURGICAL HISTORY Right 06/03/2020 PROCEDURE: AK RESCJ&BRONCHOPLASTY PFRMD TM LOBEC/SGMECTOMY; COMMENT: RUL Wedge [...] of Steps: 5 Prior Function Level of [place]: Independent with mobility and functional transfers Ambulation [...] of Steps 5 Prior Function Level of [place] Independent with mobility and functional transfers Ambulation [...] is a 68 y.o. female admitted to [facility] on 04/04/2024 for Hypotension [I95.9] COPD exacerbation ([facility]) [J44.1] Hypotension, unspecified hypotension type [I95.9] . [...] a 68 y.o. female : 1955 MR#: [id number] ASSESSMENT & PLAN Assessment/Plan Principal Problem: Weakness generalized Active Problems: COPD exacerbation ([facility]) Hypotension Jamila Ramírez is a 68 y.o. 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 Submitted by and Phone Extension: [phone] Blessing Caro RN * Georgia Abbasi RN [...] disease) (CMS/HCC) DX:COPD (chronic obstructive pulmonary disease) ([facility]) ??? Depression 04/24/2017 DX:Depression ??? Dysphagia DX:Dysphagia ??? Esophageal reflux DX:Esophageal reflux ??? Hiatal hernia DX:Hiatal hernia ??? Lung cancer (CMS/HCC) DX:Lung cancer (HCC) ??? Nocturnal hypoxia 04/24/2017 DX:Nocturnal hypoxia ??? Ventral hernia without obstruction or gangrene DX:Ventral hernia without obstruction or gangrene Past Surgical History: Procedure Laterality Date ??? OTHER SURGICAL HISTORY PROCEDURE: AK RMVL LUNG OTH/THN PNUMEC RESXN-PLCTJ EMPHY LUNG ??? OTHER SURGICAL HISTORY Right 06/03/2020 PROCEDURE: AK RESCJ&BRONCHOPLASTY PFRMD TM LOBEC/SGMECTOMY; COMMENT: RUL Wedge [...] to 10 days. 600 mL 0 ??? yyyzlnlmhms-aeyxrpvfpyvc-ixubycncde (Trelegy Ellipta) 100-62.5-25 mcg inhaler Inhale into [...] REFLEX MICROSCOPIC AND CULTURE - Abnormal Specific [place] Urine 1.027 pH, Urine 6.5 Leukocytes, Urine [...] Detected Narrative: Testing was performed using the [employer] Respiratory Pathogen PCR Assay. All results must [...] Procedure Abnormality Status --------- ------ CBC auto differential[[id number]] Abnormal Final result Please view results for these tests on the individual orders. URINALYSIS WITH REFLEX MICROSCOPIC AND CULTURE Narrative: The following orders were created for panel order Urinalysis with reflex microscopic and culture. Procedure Abnormality Status --------- ------ Urinalysis with reflex ...[[id number]] Abnormal Final result Rader urine culture tube[[id number]] In process Please view results for these [...] Signed Date: 04/04/2024 10:57 ET Workstation ID: [id number] Transcribed By: Self Edit Transcribed Date: 04/04/2024 [...] Signed Date: 04/04/2024 09:08 ET Workstation ID: [id number] Transcribed By: Self Edit Transcribed Date: 04/04/2024 [...] IVPB (1 g intravenous New Bag 04/04/24 2373) albumin human 25 % infusion 25 g (has no administration in time range) sodium chloride 0.9 % bolus 1,000 mL (1,000 mL intravenous New Bag 04/04/24 9234) ipratropium-albuteroL (DUONEB) 0.5-2.5 mg/3 mL nebulizer solution [...] 04/04/24 0959) ED Course as of 04/04/24 124TueApr 04, [id number] Patient was seen and evaluated, [...] DANIELA Ruffin Clinical Impressions as of 04/04/24 1241 COPD exacerbation (CMS/[facility]) Hypotension, unspecified hypotension type Procedures Procedures Diagnosis [...] Dietary nutrition supplements Three times daily (TID); [facility]; Standard Oral Supplement Continuous Comments: vanilla Question Answer Comment Frequency Three times daily (TID) Location [facility] Supplements Standard Oral Supplement 04/06/24 1034 04/04/[address] [facility]; General; Regular Diet effective now Question Answer Comment Location [facility] Diet Type (req) General General Diet Regular 04/04/24 1240 History of presenting illness: Patient is a 68 y.o. female with a history of Past Medical History: Diagnosis Date COPD (chronic obstructive pulmonary disease) ([facility]) DX:COPD (chronic obstructive pulmonary disease) ([facility]) Depression 04/24/2017 DX:Depression Dysphagia DX:Dysphagia Esophageal reflux DX:Esophageal reflux Hiatal hernia DX:Hiatal hernia Lung cancer (CMS/HCC) DX:Lung cancer (HCC) Nocturnal hypoxia 04/24/2017 DX:Nocturnal hypoxia Ventral hernia without obstruction or gangrene DX:Ventral hernia without obstruction or gangrene Past Surgical History: Procedure Laterality Date OTHER SURGICAL HISTORY PROCEDURE: AK RMVL LUNG OTH/THN PNUMEC RESXN-PLCTJ EMPHY LUNG OTHER SURGICAL HISTORY Right 06/03/2020 PROCEDURE: AK RESCJ&BRONCHOPLASTY PFRMD TM LOBEC/SGMECTOMY; COMMENT: RUL Wedge w/ completetion RUL lobectomy admitted 04/04/2024 with Weakness generalized. Food/Nutrition History: Previously prescribed diets: (pt denies dificulty chewing/swallowing, food allergeis, food insecurities. 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 Total Energy Estimated Needs: based on [id number] calories (35-40 lakisha/kg), 46-57 g protien (1.2-1.5 g/kg), 3352-8294 ml fluid (35-40 ml/kg) Height: 149.9 cm (59.02 ) Weight Used for Equation Calculations: (!) 38.2 kg (84 lb 3.5 oz) Thomas-[place]ont Equation: [address] [place] Equation (Overweight or Obese Patients): [...] Nutrition Priority Level: High Follow up Date: 3/4/25 Please consult nutrition if needed sooner. Nutritional Discharge Recommendations: RD remains available and will continue to follow. Signature: Aylin Boyer RD documented in this encounter Plan of Treatment Upcoming Encounters Date Type Department Care Team (Late st Contact Info) Description 07/09/2024 10:30 AM EDT Appointment [facility] CT Scan [address] [place] [address] 07/19/2024 9:00 AM EDT Ancillary Procedure Pulmonolgy - Interior [address] [place] [address] Adarsh Henriquez 07/19/2024 10:00 AM EDT [facility] [address] [place] [phone] Ana Flaherty MD [address] [place] [address] documented as of this encounter Procedures Procedure [...] * (ABNORMAL) Magnesium (04/07/2024 6:01 AM EST) [facility] Magnesium 1.7(L) 1.9 - 2.6 mg/dL LAB CHEMISTRY METHOD 04/07/2024 7:27 AM [facility] Blood Venous blood specimen / Unknown Venipuncture / Unknown 04/07/2024 6:01 AM EST 04/07/2024 6:39 AM EST Piyush Hallman MD LAB BLOOD ORDERABLES Final Re sult [facility] [address] [place] [address], [place] [phone] * (ABNORMAL) Basic metabolic panel (04/07/2024 6:01 AM EST) [facility] Sodium 139 133 - 145 mmol/L LAB [...] 7:46 AM [facility] eGFR 111 >=60 mL/min/1. [...] ORDERABLES Final Re sult Performing Organization Address City/[facility]/ZIP Co de Phone Number [facility] [address] [place] [address], [place] [phone] * Lavender tube (04/07/2024 5:58 AM EST) Extra Tube Hold for add-ons. 04/07/2024 8:01 AM [facility] Comment:Auto resulted. Blood Venous blood specimen / Unknown 04/07/2024 5:58 AM EST 04/07/2024 6:40 AM EST us Piyush Hallman MD LAB BLOOD ORDERABLES Final Re sult [facility] [address] [place] [address], [place] [phone] * Procalcitonin (04/05/2024 4:08 AM EST) Procalcitonin <0.02 <=0.16 ng/mL LAB CHEMISTRY METHOD 04/05/2024 11:53 AM EST [facility] Blood Venous blood specimen / Unknown Venipuncture / Unknown 04/05/2024 4:08 AM EST 04/05/2024 4:40 AM EST Narrative [facility] - 04/05/2024 11:53 AM [...] ORDERABLES Final Re sult Performing Organization Address City/[facility]/ZIP Co de Phone Number [facility] [address] [place] [address], * Phosphorus (04/05/2024 4:08 AM EST) [facility] Signature Phosphorus 2.6 2.5 - 4.5 mg/dL LAB CHEMISTRY METHOD 04/05/2024 5:16 AM EST [facility] Blood Venous blood specimen / Unknown Venipuncture / Unknown 04/05/2024 4:08 AM EST 04/05/2024 4:40 AM EST Cynthia SUAREZ LAB BLOOD ORDERABLES Final Result [facility] [address] [place] [address], [place] [phone] * (ABNORMAL) Magnesium (04/05/2024 4:08 AM EST) Pathologist [facility] Magnesium 1.7(L) 1.9 - 2.6 mg/dL LAB CHEMISTRY METHOD 04/05/2024 5:15 AM EST [facility] Blood Venous blood specimen / Unknown Venipuncture / Unknown 04/05/2024 4:08 AM EST 04/05/2024 4:40 AM EST Cynthia SUAREZ LAB BLOOD ORDERABLES Final Result [facility] [address] [place] [address], [place] [phone] * (ABNORMAL) Basic metabolic panel (04/05/2024 4:08 AM EST) [facility] Sodium 142 133 - 145 mmol/L LAB [...] LAB CHEMISTRY METHOD 04/05/2024 5:15 AM EST [facility] eGFR 105 >=60 mL/min/1. 73m2 LAB CHEMISTRY METHOD 04/05/2024 5:15 AM EST [facility] Comment:Calculation based on the??Chronic Kidney Disease Epidemiology Collaboration (CKD-EPI) equation refit??without adjustment for race. BUN/Creatinine Ratio 44.2 LAB CHEMISTRY METHOD 04/05/2024 5:15 AM [facility] Calcium 8.1(L) 8.5 - 10.5 mg/dL LAB CHEMISTRY METHOD 04/05/2024 5:15 AM [facility] Blood Venous blood specimen / Unknown Venipuncture / Unknown 04/05/2024 4:08 AM EST 04/05/2024 4:40 AM EST Demarco Hunter MD LAB BLOOD ORDERABLES Final Res ult [facility] [address] [place] [address], [place] [phone] * B-type natriuretic peptide (04/04/2024 10:19 AM EST) BNP 4 <=100 pcg/mL LAB CHEMISTRY METHOD 04/04/2024 11:21 AM EST [facility] Blood Venous blood specimen / Unknown Venipuncture / Unknown 04/04/2024 10:19 AM EST 04/04/2024 10:30 AM EST Loren SUAREZ LAB BLOOD ORDERABLES Final Resul t [facility] [address] [place] [address], [place] [phone] * Blood Culture, Peripheral #2 (04/04/2024 10:19 AM EST) Culture, Blood No growth at 5 days 04/09/2024 11:01 AM EST [facility] Blood Venous blood specimen / Unknown Venipuncture / Unknown 04/04/2024 10:19 AM EST 04/04/2024 10:30 AM EST [facility] LAB MICROBIOLOGY - GENERAL ORDER ERAN Final Result Performing Organization Address [facility]/ZIP Co de Phone Number [facility] [address] [place] [address], [place] [phone] * Blood Culture, Peripheral #1 (04/04/2024 10:19 AM EST) Culture, Blood No growth at 5 days 04/09/2024 11:01 AM EST [facility] Blood Venous blood specimen / Unknown Venipuncture / Unknown 04/04/2024 10:19 AM EST 04/04/2024 10:30 AM EST [facility]CRO[facility] - GENERAL ORDER ERAN Final Result Performing Organization Address [facility] de Phone Number [facility] [address] [place] [address], [place] [phone] * CT Angio Chest wo and/or w [...] Signed Date: 04/04/2024 10:57 ET Workstation ID: [id number] Transcribed By: Self Edit Transcribed Date: 04/04/2024 [...] Signed Date: 04/04/2024 10:57 ET Workstation ID: [id number] Transcribed By: Self Edit Transcribed Date: 04/04/2024 10:27 ET Loren SUAREZ IM CT PROCEDURES Final Result * Culture urine (04/04/2024 9:52 AM EST) Culture, Urine No growth 04/05/2024 11:05 AM EST [facility] Urine Urine specimen obtained by clean catch procedure / Unknown Non-blood Collection / Unknown 04/04/2024 9:52 AM EST 04/04/2024 10:45 AM EST [facility] LAB MICROBIOLOGY - GENERAL ORDER ERAN Final Result Performing Organization Address [facility]/ZIP Co de Phone Number [facility] [address] [place] [address], [place] [phone] * Rader urine culture tube (04/04/2024 9:52 AM EST) [facility] Extra Tube Hold for add-ons. 04/04/2024 12:02 PM [facility] Comment:Auto resulted. Urine Urine specimen obtained by clean catch procedure / Unknown Non-blood Collection / Unknown 04/04/2024 9:52 AM EST 04/04/2024 10:31 AM EST Loren SUAREZ LAB URINE ORDERABLES Final Resul t Performing Organization Address [facility]/ZIP Co de Phone Number [facility] [address] [place] [address], [place] [phone] * (ABNORMAL) Urinalysis with reflex microscopic and culture (04/04/2024 9:52 AM EST) [facility] Specific [place] Urine 1.027 1.003 - 1.030 LAB URINALYSIS [...] SUAREZ LAB URINE ORDERABLES Final Resul t [facility] [address] [place] [address], * Respiratory virus panel molecular study (04/04/2024 9:45 AM EST) Pathologist [facility] Adenovirus Detection by PCR Not Detected Not Detected LAB MICROBIOLOGY METHOD 04/04/2024 10:55 AM EST [facility] Influenza A PCR Not Detected Not Detected LAB MICROBIOLOGY METHOD 04/04/2024 10:55 AM EST [facility] Influenza B PCR Not Detected Not Detected LAB MICROBIOLOGY METHOD 04/04/2024 10:55 AM EST [facility] Coronavirus 229E Not Detected Not Detected LAB MICROBIOLOGY METHOD 04/04/2024 10:55 AM EST [facility] Coronavirus HKU1 Not Detected Not Detected LAB MICROBIOLOGY METHOD 04/04/2024 10:55 AM [facility] Coronavirus OC43 Not Detected Not Detected LAB MICROBIOLOGY METHOD 04/04/2024 10:55 AM [facility] Coronavirus NL63 Not Detected Not Detected LAB MICROBIOLOGY METHOD 04/04/2024 10:55 AM EST [facility] Parainfluenza Virus 1 Not [...] LAB MICROBIOLOGY METHOD 04/04/2024 10:55 AM EST [facility] RSV PCR Not Detected Not Detected LAB MICROBIOLOGY METHOD 04/04/2024 10:55 AM [facility] Human Metapneumovirus A and B Not Detected Not Detected LAB MICROBIOLOGY METHOD 04/04/2024 10:55 AM EST [facility] Rhinovirus/Entero virus Not Detected Not Detected LAB MICROBIOLOGY METHOD 04/04/2024 10:55 AM EST [facility] Bordetella pertussis Not Detected Not Detected LAB MICROBIOLOGY METHOD 04/04/2024 10:55 AM [facility] Bordetella parapertussis Not Detected Not Detected LAB MICROBIOLOGY METHOD 04/04/2024 10:55 AM EST [facility] Mycoplasma pneumo by PCR Not Detected Not Detected LAB MICROBIOLOGY METHOD 04/04/2024 10:55 AM EST [facility] Chlamydia pneumoniae Not Detected Not Detected LAB MICROBIOLOGY METHOD 04/04/2024 10:55 AM [facility] SARS COV-2 Not Detected Not Detected LAB MICROBIOLOGY METHOD 04/04/2024 10:55 AM [facility] Swab Both anterior nares / Unknown Non-blood Collection / Unknown 04/04/2024 9:45 AM EST 04/04/2024 9:53 AM EST [facility] - 04/04/2024 10:55 AM EST Testing was performed using the [employer] Respiratory Pathogen PCR Assay. All results must [...] that are below the limit of detection. Loren SUAREZ LAB MICROBIOLOGY - GENERAL ORDER ERAN Final Result [facility] [address] [place] [address], * Thyroid stimulating hormone with reflex to free t4 and free t3 (04/04/2024 9:19 AM EST) TSH 1.84 0.40 - 4.00 mcIU/mL LAB CHEMISTRY METHOD 04/04/2024 4:01 PM [facility] Blood Venous blood specimen / Unknown Venipuncture / Unknown 04/04/2024 9:19 AM EST 04/04/2024 9:53 AM EST Cynthia SUAREZ LAB BLOOD ORDERABLES Final Result [facility] [address] [place] [address], * (ABNORMAL) Comprehensive metabolic panel (04/04/2024 9:19 [...] AM EST 04/04/2024 9:53 AM EST us Saray Darden DO LAB BLOOD ORDERABLES Elsa l Result [facility] [address] [place] [address], * Lactate (04/04/2024 9:19 AM EST) Lactate 1.0 0.4 - 2.0 mmol/L LAB CHEMISTRY METHOD 04/04/2024 10:28 AM [facility] Blood Venous blood specimen / Unknown Venipuncture / Unknown 04/04/2024 9:19 AM EST 04/04/2024 9:49 AM EST Saray Reyes Trell aDrden DO LAB BLOOD ORDERABLES Elsa l Result Performing Organization Address [facility] Co de Phone Number [facility] [address] [place] [address], [place] [phone] * (ABNORMAL) Venous blood gas (04/04/2024 9:19 AM EST) Pathologist [facility] pH, Thanh 7.43(H) 7.32 - 7.42 pH 04/04/2024 9:53 AM EST [facility] pCO2, Thanh 46 41 - 51 mmHg 04/04/2024 9:53 AM EST [facility] pO2, Thanh 43(H) 25 - 40 mmHg 04/04/2024 9:53 AM [facility] HCO3, Venous 28.3(H) 22.0 - 26.0 mmol/L 04/04/2024 9:53 AM [facility] O2 Sat, Thanh 75.4 % 04/04/2024 9:53 AM [facility] Base Excess, Thanh 5.2(H) -2.0 - 2.0 mmol/L 04/04/2024 9:53 AM [facility] Blood Venous blood specimen / Unknown Venipuncture / Unknown 04/04/2024 9:19 AM EST 04/04/2024 9:53 AM EST Alvareznina Darden DO LAB BLOOD ORDERABLES Elsa l Result [facility] [address] [place] [address], [place] [phone] * (ABNORMAL) CBC auto differential (04/04/2024 9:19 AM EST) Pathologist [facility] WBC 8.4 4.8 - 10.8 K/mcL LAB [...] LAB BLOOD ORDERABLES Elsa l Result [facility] [address] [place] [address], [place] [phone] * ECG 12 lead (04/04/2024 9:10 AM EST) Ventricular Rate ECG 86 BPM GEMUSE Atrial Rate 86 BPM GEMUSE P-R Interval 106 ms GEMUSE QRS Duration 80 ms GEMUSE Q-T Interval 340 ms GEMUSE QTc 406 ms GEMUSE R [place] 53 degrees GEMUSE T [place] 60 degrees GEMUSE ECG Interpretation Sinus rhythm [...] Signed Date: 04/04/2024 09:08 ET Workstation ID: [id number] Transcribed By: Self Edit Transcribed Date: 04/04/2024 [...] Signed Date: 04/04/2024 09:08 ET Workstation ID: [id number] Transcribed By: Self Edit Transcribed Date: 04/04/2024 08:59 ET us Alvarez Eric Darden DO IMG XR PROCEDURES Final R [...] on Tue04/04/24 at 1243, For 5 days Given 04/07/2024 8:41 AM EST 40 mg Given 04/06/2024 9:55 AM EST 40 mg Given 04/05/2024 8:04 AM EST 40 mg revefenacin (YUPELRI) 175 mcg/3 mL nebulizer solution 175 mcg 175 mcg, nebulization, Daily, First dose on 04/04/24 at 1241, Therapeutic substitution for TRELEGY ELLIPTA [...] Patient/Resident/Agen t refused - education provided ) 075 (Given - Provider: Moon Schmidt) guaiFENesin (MUCINEX) 12 hr tablet 600 mg 600 mg, oral, Every 12 hours scheduled, First dose on Tue04/05/24 at 1300, Administer with plenty of fluids to ensure proper action. Do not crush, chew, or split. 1255 (Given - Provider: Afshan Ahuja RN)5 (Given - Provider: Dawna Oneill RN) 0955 (Given - Provider: Elaine Red, KAMRAN)2206 (Given - Provider: Dawna Oneill RN) 0841 (Given - Provider: Elaine Red, KAMRAN) influenza trivalent (65 years and up) (FLUAD) (PF) adjuvanted vaccine 0.5 mL 0.5 mL, intramuscular, During hospitalization, Starting on Tue04/05/24 at 1257, For 1 dose magnesium oxide (MAG-OX) tablet 400 mg 400 mg, oral, Daily, First dose on Tue04/05/24 at 0900 0902 (Given - Provider: Afshan Ahuja RN) 0955 (Given - Provider: Elaine Red [...] 2117 (Return to Cabinet - Provider: Dawna Oenill RN) 1650 (Given - Provider: Elaine Red, [...] documented as of this encounter Care Teams Paperhanger Contractor Relationship Specialty Start Date End Date Donna Romero MD [address] [place] [address] PCP - General Internal Medicine 10/30/18 documented as of this encounter
--- OUTSIDE RECORDS SUMMARY | 2024-04-17 07:45 | XMS_ITS | Encounter Summary ---
Author Organization [facility] Address [address] [facility] [place] [address] Care Team Providers Care Radio Journalist Name Role Phone Donna Romero Md, MD Primary Care Provider Unavailable Mannie Morillo MD Unavailable Josep Givens PA-C Unavailable [phone] Encounter Details Date Type Department Care Team Description 06/03/2021 Hospital Medical Records [address] [place] [address] Mannie Morillo MD [address] [id number] Social History Tobacco Use Types Packs/Day Years Used Date Smoking Tobacco: Some Days Cigarettes 0.5 Last attempted to quit: 05/11/2021 Smokeless Tobacco: Never Comments:4 cigs weekly. Alcohol Use Standard Drinks/Week Comments No 0 (1 standard drink = 0.6 oz pur e alcohol) Sex Assigned at Date Recorded Not on file Job Start Date Occupation Industry Not on file Not on file Not on file documented as of this encounter Plan of Treatment Not on file documented as of this encounter Visit Diagnoses Not on filedocumented in this encounter Care Teams Radio Journalist Relationship Specialty Start Date End Date Donna Romero MD, MD PCP - General Internal Medicine 07/11/20 Mannie Morillo MD Specialist Lung Cancer [employer] 06/03/21 Josep Givens PA-C [address] [phone] Specialist Thoracic Surgery 07/08/22 documented as of this encounter
--- OUTSIDE RECORDS SUMMARY | 2024-04-17 07:45 | XMS_ITS | Clinical Summary ---
Author Organization [facility] Address [address] [place] [phone] Phone Care Team Providers Care Office Support Assistant Name Role Phone Donna Romero MD Primary Care Provider [phone] Allergies No known active allergies Medications nabumetone [...] total) by mouth at bedtime. 025 Active predniSONE (DELTASONE) 20 mg tablet Take [...] at bedtime for 3 doses. 3 each 025 2024 Discontinued(S top Taking at Discharge) cefpodoxime (VANTIN) 200 mg tablet Take 1 tablet (200 mg total) by mouth 2 (two) times a day for 5 days. 10 each 2024 Discontinued(S top Taking at Discharge) dextromethorpha n-guaiFENesin (ROBITUSSIN-DM) 10-100 mg/5 mL syrup Take 10 mL by mouth every 4 (four) hours if needed for cough for up to 10 days. 600 mL 025 2024 Discontinued predniSONE (DELTASONE) 10 mg [...] (two) times a day. for 7 days 2024 Discontinued(S top Taking at Discharge) guaiFENesin (MUCINEX) 600 mg 12 hr tablet Take 1 tablet (600 mg total) by mouth every 12 (twelve) hours for 10 days. Do not crush, chew, or split. 20 each 025 2024 azithromycin (ZITHROMAX) 250 mg tablet Take 1 tablet (250 mg total) by mouth 1 (one) time each day for 6 doses. 6 each 025 2024 Active Problems Problem Noted Date Diagnosed Date [...] 8:30 AM EST Office Visit Pulmonolgy - [place] [address] [facility] [address] [place] [phone] Ana Flaherty MD Chronic obstructive pulmonary disease, unspecified COPD type (CMS/HCC) (Primary Dx); Hypoxemia 04/04/2024 8:25 AM EST - 04/07/2024 1:21 PM EST Emergency [facility] Intermediate Care Unit [address] [place] [phone] Saray Darden DO Kenton, Mark A, MD Bukalo, Nermina, MD Bell, Alistair A, MD COPD exacerbation (CMS/HCC) (Primary Dx); Hypotension, unspecified hypotension type Discharge Disposition: Home or Self Care 03/24/2024 2:29 PM EST - 03/25/2024 3:51 PM EST Emergency [facility] Urology Unit [address] [place] [address] Bryce Woods MD Jones, Christopher, MD Nasser, Nada S, MD Santoyo-Pacheco, Omar D, MD Multifocal pneumonia (Primary Dx); Shortness of breath; COPD exacerbation (CMS/HCC) Discharge Disposition: Home or Self Care from Last 3 Months Surgical History Surgery Date Site/Laterality Comments OTHER SURGICAL HISTORY PROCEDURE: CO RMVL LUNG OTH/THN PNUMEC RESXN-PLCTJ EMPHY LUNG OTHER SURGICAL HISTORY 06/03/2020 Right PROCEDURE: CO RESCJ&BRONCHOPLASTY PFRMD TM LOBEC/SGMECTOMY; COMMENT: RUL Wedge [...] for your loved ones. For example, child development professor or elderly care for an older adult? [...] Appointment [facility] CT Scan [address] [place] [address] 07/19/2024 9:00 AM EDT Ancillary Procedure Pulmonolgy [facility] [address] [phone] Adarsh Henriquez 07/19/2024 10:00 AM EDT [facility] [address] [phone] Ana Flaherty MD [address] [address] Health Maintenance Due Date Last Done Comments [...] LAB CHEMISTRY METHOD 04/07/2024 7:27 AM EST [facility] Blood Venous blood specimen / Unknown Venipuncture / Unknown 04/07/2024 6:01 AM EST 04/07/2024 6:39 AM EST us Piyush Hallman MD LAB BLOOD ORDERABLES Final Re sult [facility] [address] [place] [address], * (ABNORMAL) Basic metabolic panel (04/07/2024 6:01 AM EST) Only the most recent of4 resultswithin the time period is included. Sodium 139 133 - 145 mmol/L LAB CHEMISTRY METHOD 04/07/2024 7:[address] [facility] Potassium 3.6 3.5 - 5.5 mmol/L LAB CHEMISTRY METHOD 04/07/2024 7:[address] [facility] Chloride 107 96 - 110 mmol/L LAB CHEMISTRY METHOD 04/07/2024 7:[address] [facility] CO2 27 21 - 32 mmol/L LAB CHEMISTRY METHOD 04/07/2024 7:[address] [facility] Anion Gap 5 3 - 11 LAB CHEMISTRY METHOD 04/07/2024 7:[address] [facility] Glucose 100 70 - 100 mg/dL LAB CHEMISTRY METHOD 04/07/2024 7:[address] [facility] BUN 16 5 - 25 mg/dL LAB CHEMISTRY METHOD 04/07/2024 7:[address] [facility] Creatinine 0.35(L) 0.50 - 1.10 mg/dL LAB CHEMISTRY METHOD 04/07/2024 7:[address] [facility] eGFR 111 >=60 mL/min/1. 73m2 LAB CHEMISTRY METHOD 04/07/2024 7:[address] [facility] Comment:Calculation based on the??Chronic Kidney Disease Epidemiology Collaboration (CKD-EPI) equation refit??without adjustment for race. BUN/Creatinine Ratio 45.7 LAB CHEMISTRY METHOD 04/07/2024 7:[address] [facility] Calcium 7.3(L) 8.5 - 10.5 mg/dL LAB CHEMISTRY METHOD 04/07/2024 7:46 AM EST [facility] Blood Venous blood specimen / Unknown Venipuncture / Unknown 04/07/2024 6:01 AM EST 04/07/2024 6:39 AM EST us Piyush Hallman MD LAB BLOOD ORDERABLES Final Re sult [facility] [address] [place] [address], [place] [phone] * Lavender tube (04/07/2024 5:58 AM EST) Extra Tube Hold for add-ons. 04/07/2024 8:01 AM EST [facility] Comment:Auto resulted. Blood Venous blood specimen / Unknown 04/07/2024 5:58 AM EST 04/07/2024 6:40 AM EST us Piyush Hallman MD LAB BLOOD ORDERABLES Final Re sult Performing Organization Address City/[facility]/ZIP Co de Phone Number [facility] [address] [place] [address], [place] [phone] * Procalcitonin (04/05/2024 4:08 AM EST) Only the most recent of2 resultswithin the time period is included. Procalcitonin <0.02 <=0.16 ng/mL LAB CHEMISTRY METHOD 04/05/2024 11:53 AM EST [facility] Blood Venous blood specimen / Unknown Venipuncture / Unknown 04/05/2024 4:08 AM EST 04/05/2024 4:40 AM EST Narrative [facility] - 04/05/2024 11:53 AM [...] ORDERABLES Final Re sult Performing Organization Address City/[facility]/ZIP Co de Phone Number [facility] [address] [place] [address], * Phosphorus (04/05/2024 4:08 AM EST) Phosphorus 2.6 2.5 - 4.5 mg/dL LAB CHEMISTRY METHOD 04/05/2024 5:16 AM EST [facility] Blood Venous blood specimen / Unknown Venipuncture / Unknown 04/05/2024 4:08 AM EST 04/05/2024 4:40 AM EST Cynthia SUAREZ LAB BLOOD ORDERABLES Final Result Performing Organization Address [facility]/ZIP Co de Phone Number [facility] [address] [place] [address], * Blood Culture, Peripheral #2 (04/04/2024 10:19 AM EST) Only the most recent of4 resultswithin the time period is included. Culture, Blood No growth at 5 days 04/09/2024 11:01 AM EST [facility] Blood Venous blood specimen / Unknown Venipuncture / Unknown 04/04/2024 10:19 AM EST 04/04/2024 10:30 AM EST [facility] LAB MICROBIOLOGY - GENERAL ORDER ERAN Final Result Performing Organization Address [facility] Co de Phone Number [facility] [address] [place] [address], [place] [phone] * B-type natriuretic peptide (04/04/2024 10:19 AM EST) Only the most recent of2 resultswithin the time period is included. BNP 4 <=100 pcg/mL LAB CHEMISTRY METHOD 04/04/2024 11:21 AM EST [facility] Blood Venous blood specimen / Unknown Venipuncture / Unknown 04/04/2024 10:19 AM EST 04/04/2024 10:30 AM EST [facility] LAB BLOOD ORDERABLES Final Resul t Performing Organization Address [facility] de Phone Number [facility] [address] [place] [address], [place] [phone] * CT Angio Chest wo and/or w [...] Signed Date: 04/04/2024 10:57 ET Workstation ID: [id number] Transcribed By: Self Edit Transcribed Date: 04/04/2024 [...] Signed Date: 04/04/2024 10:57 ET Workstation ID: [id number] Transcribed By: Self Edit Transcribed Date: 04/04/2024 10:27 ET Loren SUAREZ IM CT PROCEDURES Final Result * (ABNORMAL) Urinalysis with reflex microscopic and culture (04/04/2024 9:52 AM EST) Only the most recent of2 resultswithin the time period is included. Specific Mathews Urine 1.027 1.003 - 1.030 LAB URINALYSIS - AUTOMATED METHOD 04/04/2024 10:45 AM EST [facility] pH, Urine 6.5 5.0 - 8.0 pH LAB URINALYSIS - AUTOMATED METHOD 04/04/2024 10:[address] [facility] Leukocytes, Urine Trace(A) Negative LAB URINALYSIS - AUTOMATED METHOD 04/04/2024 10:[address] [facility] Nitrite, Urine Negative Negative LAB URINALYSIS - AUTOMATED METHOD 04/04/2024 10:[address] [facility] Protein, Urine Negative <=Trace mg/dL LAB URINALYSIS - AUTOMATED METHOD 04/04/2024 10:[address] [facility] Glucose, Urine Negative Negative mg/dL LAB URINALYSIS - AUTOMATED METHOD 04/04/2024 10:[address] [facility] Ketones, Urine Trace(A) Negative mg/dL LAB URINALYSIS - AUTOMATED METHOD 04/04/2024 10:[address] [facility] Urobilinogen, Urine 0.2 0.2 - 1.0 mg/dL LAB URINALYSIS - AUTOMATED METHOD 04/04/2024 10:[address] [facility] Bilirubin, Urine Negative Negative LAB URINALYSIS - AUTOMATED METHOD 04/04/2024 10:[address] [facility] Blood, Urine Negative Negative LAB URINALYSIS - AUTOMATED METHOD 04/04/2024 10:[address] [facility] RBC, Urine 4.3(H) 0 - 4 /HPF LAB URINALYSIS - AUTOMATED METHOD 04/04/2024 10:[address] [facility] WBC, Urine 4.8(H) 0 - 4 /HPF LAB URINALYSIS - AUTOMATED METHOD 04/04/2024 10:[address] [facility] Squamous Epithelial, Urine 64(H) 0 - 60 /LPF LAB URINALYSIS - AUTOMATED METHOD 04/04/2024 10:[address] [facility] Bacteria, Urine Few(A) Negative /HPF LAB URINALYSIS - AUTOMATED METHOD 04/04/2024 10:[address] [facility] Hyaline Casts, Urine 1.2 0 - 3 /LPF LAB URINALYSIS - AUTOMATED METHOD 04/04/2024 10:[address] [facility] Urine Urine specimen obtained by clean catch procedure / Unknown Non-blood Collection / Unknown 04/04/2024 9:52 AM EST 04/04/2024 10:31 AM EST [employer] [place] LAB URINE ORDERABLES Final Resul t Performing Organization Address [facility] Co de Phone Number [facility] [address] [place] [address], [place] [phone] * Rader urine culture tube (04/04/2024 9:52 AM EST) Only the most recent of2 resultswithin the time period is included. Extra Tube Hold for add-ons. 04/04/2024 12:[address] [facility] Comment:Auto resulted. Urine Urine specimen obtained by clean catch procedure / Unknown Non-blood Collection / Unknown 04/04/2024 9:52 AM EST 04/04/2024 10:31 AM EST [facility] [place] LAB URINE ORDERABLES Final Resul t Performing Organization Address [facility]/ZIP Co de Phone Number [facility] [address] [place] [address], [place] [phone] * Culture urine (04/04/2024 9:52 AM EST) Culture, Urine No growth 04/05/2024 11:[address] [facility] Urine Urine specimen obtained by clean catch procedure / Unknown Non-blood Collection / Unknown 04/04/2024 9:52 AM EST 04/04/2024 10:45 AM EST [email or web address] [facility] [place] LAB MICROBIOLOGY - GENERAL ORDER ERAN Final Result [facility] [address] [place] [address], * Respiratory virus panel molecular study (04/04/2024 9:45 AM EST) Only the most recent of2 resultswithin the time period is included. Adenovirus Detection by PCR Not Detected Not Detected LAB MICROBIOLOGY METHOD 04/04/2024 10:55 AM EST [facility] Influenza A PCR Not Detected Not Detected LAB MICROBIOLOGY METHOD 04/04/2024 10:55 AM EST [facility] Influenza B PCR Not Detected Not Detected LAB MICROBIOLOGY METHOD 04/04/2024 10:55 AM EST [facility] Coronavirus 229E Not Detected Not Detected LAB MICROBIOLOGY METHOD 04/04/2024 10:55 AM EST [facility] Coronavirus HKU1 Not Detected Not Detected LAB MICROBIOLOGY METHOD 04/04/2024 10:55 AM EST [facility] Coronavirus OC43 Not Detected Not Detected LAB MICROBIOLOGY METHOD 04/04/2024 10:55 AM EST [facility] Coronavirus NL63 Not Detected Not Detected LAB MICROBIOLOGY METHOD 04/04/2024 10:55 AM EST [facility] Parainfluenza Virus 1 Not Detected Not Detected LAB MICROBIOLOGY METHOD 04/04/2024 10:55 AM EST [facility] Parainfluenza Virus 2 Not Detected Not Detected LAB MICROBIOLOGY METHOD 04/04/2024 10:55 AM EST [facility] Parainfluenza Virus 3 Not Detected Not Detected LAB MICROBIOLOGY METHOD 04/04/2024 10:55 AM EST [facility] Parainfluenza Virus 4 Not Detected Not Detected LAB MICROBIOLOGY METHOD 04/04/2024 10:[address] [facility] RSV PCR Not Detected Not Detected LAB MICROBIOLOGY METHOD 04/04/2024 10:55 AM EST [facility] Human Metapneumovirus A and B Not Detected Not Detected LAB MICROBIOLOGY METHOD 04/04/2024 10:55 AM EST [facility] Rhinovirus/Entero virus Not Detected Not Detected LAB MICROBIOLOGY METHOD 04/04/2024 10:55 AM EST [facility] Bordetella pertussis Not Detected Not Detected LAB MICROBIOLOGY METHOD 04/04/2024 10:55 AM EST [facility] Bordetella parapertussis Not Detected Not Detected LAB MICROBIOLOGY METHOD 04/04/2024 10:55 AM EST [facility] Mycoplasma pneumo by PCR Not Detected Not Detected LAB MICROBIOLOGY METHOD 04/04/2024 10:55 AM EST [facility] Chlamydia pneumoniae Not Detected Not Detected LAB MICROBIOLOGY METHOD 04/04/2024 10:[address] [facility] SARS COV-2 Not Detected Not Detected LAB MICROBIOLOGY METHOD 04/04/2024 10:[address] [facility] Swab Both anterior nares / Unknown Non-blood Collection / Unknown 04/04/2024 9:45 AM EST 04/04/2024 9:53 AM EST [facility] - 04/04/2024 10:55 AM EST Testing was performed using the CBLPathe Respiratory Pathogen PCR Assay. All results must [...] MICROBIOLOGY - GENERAL ORDER ERAN Final Result [facility]) [facility] [address] [place] [address], * Thyroid stimulating hormone with reflex to free t4 and free t3 (04/04/2024 9:19 AM EST) TSH 1.84 0.40 - 4.00 mcIU/mL LAB CHEMISTRY METHOD 04/04/2024 4:[address] [facility] Blood Venous blood specimen / Unknown Venipuncture / Unknown 04/04/2024 9:19 AM EST 04/04/2024 9:53 AM EST Cynthia SUAREZ LAB BLOOD ORDERABLES Final Result [facility] [address] [place] [address], [place] [phone] * (ABNORMAL) CBC auto differential (04/04/2024 9:19 AM EST) Only the most recent of3 resultswithin the time period is included. [facility] WBC 8.4 4.8 - 10.8 K/mcL LAB HEMETOLOGY METHOD 04/04/2024 10:[address] [facility] RBC 4.20 3.80 - 4.80 M/mcL LAB HEMETOLOGY METHOD 04/04/2024 10:[address] [facility] Hemoglobin 12.8 11.5 - 16.0 g/dL LAB HEMETOLOGY METHOD 04/04/2024 10:[address] [facility] Hematocrit 41.7 35.0 - 47.0 % LAB HEMETOLOGY METHOD 04/04/2024 10:[address] [facility] MCV 98.8(H) 79.0 - 98.0 FL LAB HEMETOLOGY METHOD 04/04/2024 10:[address] [facility] MCH 30.3 27.0 - 32.0 pcg LAB HEMETOLOGY METHOD 04/04/2024 10:[address] [facility] MCHC 30.7(L) 32.0 - 37.0 g/dL LAB HEMETOLOGY METHOD 04/04/2024 10:[address] [facility] RDW 14.2 11.0 - 15.0 % LAB HEMETOLOGY METHOD 04/04/2024 10:[address] [facility] Platelets 298 130 - 400 K/mcL LAB HEMETOLOGY METHOD 04/04/2024 10:[address] [facility] MPV 8.8 7.0 - 11.0 FL LAB HEMETOLOGY METHOD 04/04/2024 10:[address] [facility] NRBC 0.0 <1.0 % LAB HEMETOLOGY METHOD 04/04/2024 10:[address] [facility] NRBC Absolute 0.00 <0.10 K/mcL LAB HEMETOLOGY METHOD 04/04/2024 10:[address] [facility] Neutrophils Relative 61.8 % LAB HEMETOLOGY METHOD 04/04/2024 10:[address] [facility] Lymphocytes Relative 22.6 % LAB HEMETOLOGY METHOD 04/04/2024 10:[address] [facility] Monocytes Relative 10.5 % LAB HEMETOLOGY METHOD 04/04/2024 10:[address] [facility] Eosinophils Relative 2.0 % LAB HEMETOLOGY METHOD 04/04/2024 10:[address] [facility] Basophils Relative 1.1 % LAB HEMETOLOGY METHOD 04/04/2024 10:[address] [facility] Immature Granulocytes Relative 2.0 % LAB HEMETOLOGY METHOD 04/04/2024 10:[address] [facility] Neutrophils Absolute 5.17 1.50 - 7.00 K/mcL LAB HEMETOLOGY METHOD 04/04/2024 10:[address] [facility] Lymphocytes Absolute 1.89 1.00 - 5.00 K/mcL LAB HEMETOLOGY METHOD 04/04/2024 10:[address] [facility] Monocytes Absolute 0.88 0.20 - 1.00 K/mcL LAB HEMETOLOGY METHOD 04/04/2024 10:26 AM EST [facility] Eosinophils Absolute 0.17 0.00 - 0.50 K/[facility] LAB HEMETOLOGY METHOD 04/04/2024 10:[address] [facility] Basophils Absolute 0.09 0.00 - 0.20 K/[facility] LAB HEMETOLOGY METHOD 04/04/2024 10:26 AM EST [facility]) [facility] Immature Granulocytes Absolute 0.17(H) 0.00 - 0.03 [facility] LAB HEMETOLOGY METHOD 04/04/2024 10:[address] [facility] Blood Venous blood specimen / Unknown Venipuncture / Unknown 04/04/2024 9:19 AM EST 04/04/2024 9:53 AM EST Saray Eric Trell Darden LAB BLOOD ORDERABLES Elsa l Result Performing Organization Address City/[facility]/ZIP Co de Phone Number [facility] [address] [place] [address], [place] [phone] * Lactate (04/04/2024 9:19 AM EST) Pathologist [facility] Lactate 1.0 0.4 - 2.0 mmol/L LAB CHEMISTRY METHOD 04/04/2024 10:28 AM EST [facility] Blood Venous blood specimen / Unknown Venipuncture / Unknown 04/04/2024 9:19 AM EST 04/04/2024 9:49 AM EST Saray Darden LAB BLOOD ORDERABLES Elsa l Result [facility] [address] [place] [address], [place] [phone] * (ABNORMAL) Venous blood gas (04/04/2024 9:19 AM EST) pH, Thanh 7.43(H) 7.32 - 7.42 pH 04/04/2024 9:[address] [facility] pCO2, Thanh 46 41 - 51 mmHg 04/04/2024 9:[address] [facility] pO2, Thanh 43(H) 25 - 40 mmHg 04/04/2024 9:[address] [facility] HCO3, Venous 28.3(H) 22.0 - 26.0 mmol/L 04/04/2024 9:[address] [facility] O2 Sat, Thanh 75.4 % 04/04/2024 9:[address] [facility] Base Excess, Thanh 5.2(H) -2.0 - 2.0 mmol/L 04/04/2024 9:[address] [facility] Blood Venous blood specimen / Unknown Venipuncture / Unknown 04/04/2024 9:19 AM EST 04/04/2024 9:53 AM EST us Saray Darden DO LAB BLOOD ORDERABLES Elsa l Result [facility] [address] [place] [address], * (ABNORMAL) Comprehensive metabolic panel (04/04/2024 9:19 AM EST) Sodium 142 133 - 145 mmol/L LAB CHEMISTRY METHOD 04/04/2024 11:[address] [facility] Potassium 4.6 3.5 - 5.5 mmol/L LAB CHEMISTRY METHOD 04/04/2024 11:[address] [facility] Chloride 107 96 - 110 mmol/L LAB CHEMISTRY METHOD 04/04/2024 11:[address] [facility] CO2 29 21 - 32 mmol/L LAB CHEMISTRY METHOD 04/04/2024 11:[address] [facility] Anion Gap 6 3 - 11 LAB CHEMISTRY METHOD 04/04/2024 11:[address] [facility] Glucose 78 70 - 100 mg/dL LAB CHEMISTRY METHOD 04/04/2024 11:[address] [facility] BUN 30(H) 5 - 25 mg/dL LAB CHEMISTRY METHOD 04/04/2024 11:[address] [facility] Comment:Results verified by repeat testing Creatinine 0.52 0.50 - 1.10 mg/dL LAB CHEMISTRY METHOD 04/04/2024 11:[address] [facility] eGFR 101 >=60 mL/min/1. 73m2 LAB CHEMISTRY METHOD 04/04/2024 11:[address] [facility] Comment:Calculation based on the??Chronic Kidney Disease Epidemiology Collaboration (CKD-EPI) equation refit??without adjustment for race. BUN/Creatinine Ratio 57.7 LAB CHEMISTRY METHOD 04/04/2024 11:[address] [facility] Calcium 9.3 8.5 - 10.5 mg/dL LAB CHEMISTRY METHOD 04/04/2024 11:[address] [facility] AST (SGOT) 24 10 - 42 unit/L LAB CHEMISTRY METHOD 04/04/2024 11:[address] [facility] ALT (SGPT) 45 10 - 60 unit/L LAB CHEMISTRY METHOD 04/04/2024 11:[address] [facility] Alkaline Phosphatase 84 42 - 121 unit/L LAB CHEMISTRY METHOD 04/04/2024 11:[address] [facility] Total Protein 6.7 6.0 - 8.0 g/dL LAB CHEMISTRY METHOD 04/04/2024 11:[address] [facility] Albumin 3.1(L) 3.2 - 5.0 g/dL LAB CHEMISTRY METHOD 04/04/2024 11:[address] [facility] Total Bilirubin 0.7 0.0 - 1.4 mg/dL LAB CHEMISTRY METHOD 04/04/2024 11:[address] [facility] Blood Venous blood specimen / Unknown Venipuncture / Unknown 04/04/2024 9:19 AM EST 04/04/2024 9:53 AM EST Saray Darden DO LAB BLOOD ORDERABLES Elsa l Result Performing Organization Address [facility] Co de Phone Number [facility]) [facility] [address] [place] [address], [place] [phone] * ECG 12 lead (04/04/2024 9:10 AM EST) Only the most recent of2 resultswithin the time period is included. Ventricular Rate ECG 86 BPM GEMUSE Atrial Rate 86 BPM GEMUSE P-R Interval 106 ms GEMUSE QRS Duration 80 ms GEMUSE Q-T Interval 340 ms GEMUSE QTc 406 ms GEMUSE R [place] 53 degrees GEMUSE T [place] 60 degrees GEMUSE ECG Interpretation Sinus rhythm When compared with ECG of 24-MAR-2024 15:56, No significant change was found Confirmed by EDIL ARAIZA ([id number]) on 04/04/2024 8:07:00 PM GEMUSE 04/04/2024 9:10 AM EST 04/04/2024 8:07 PM EST us Saray Darden DO ECG ORDERABLES Final Res ult Performing Organization Address [facility] Phone Number GEMUSE * XR Chest 2 [...] Signed Date: 04/04/2024 09:08 ET Workstation ID: [id number] Transcribed By: Self Edit Transcribed Date: 04/04/2024 [...] Signed Date: 04/04/2024 09:08 ET Workstation ID: [id number] Transcribed By: Self Edit Transcribed Date: 04/04/2024 08:59 ET us Saray Darden DO IMG XR PROCEDURES Final R esult * ECG-Outside (03/26/2024) us Provider Onbase ECG ORDERABLES Final Result * (ABNORMAL) Culture sputum (03/25/2024 8:26 AM EST) Culture, Sputum No pathogens isolated. 03/29/2024 9:41 AM EST [facility] Gram Stain Result >25 WBCs, 10-25 Epithelials - Acceptable for Culture(A) 03/29/2024 9:41 AM EST [facility] Gram Stain Result Many Polymorphonuclear leukocytes(A) 03/29/2024 9:41 AM EST [facility] Gram Stain Result Moderate Epithelial cells(A) 03/29/2024 9:41 AM EST [facility] Gram Stain Result Moderate Gram positive bacilli(A) 03/29/2024 9:41 AM EST [facility] Gram Stain Result Moderate Gram positive cocci in pairs and chains(A) 03/29/2024 9:41 AM EST [facility] Gram Stain Result Few Gram negative bacilli(A) 03/29/2024 9:41 AM EST [facility] Sputum, expectorated Oropharyngeal structure / Unknown 03/25/2024 8:26 AM EST 03/25/2024 8:39 AM EST Kemi Rivero NP LAB MICROBIOLOGY - [facility] AL ORDERABLES Final Result [facility] [address] [place] [address], * Streptococcus pneumoniae antibodies, IgG, 23 serotypes [...] developed and its performance characteristics determined by [facility] in a manner consistent with CLIA requirements. This test has not been cleared or approved by the U.S. Food and Drug Administration. Test Performed by: [facility] - [address] [address] Pinking Machine Operator: Erin Nicole Ph.D.; CLIA# [id number] Blood Venous blood specimen / Unknown Venipuncture / Unknown 03/25/2024 6:02 AM EST 03/25/2024 6:33 AM EST us Kemi Rivero HUMAN SERVICES ASSISTANT LAB BLOOD ORDERABLES Fin al Result [facility] [address] [place] [address] * Legionella antigen urine, EIA (03/24/2024 11:09 PM EST) [facility] Legionella Antigen, Ur Negative Negative 03/25/2024 12:53 AM EST [facility] Urine Urine specimen from urethra / Unknown Non-blood Collection / Unknown 03/24/2024 11:09 PM EST 03/24/2024 11:49 PM EST Narrative [facility] - 03/25/2024 12:53 AM [...] ORDERABLES Fin al Result Performing Organization Address City/[facility]/ZIP Co de Phone Number [facility] [address] [place] [address], [place] [phone] * Lactate, with Reflex (03/24/2024 8:23 PM EST) LACTIC ACID 0.8 0.4 - 2.0 mmol/L LAB CHEMISTRY METHOD 03/24/2024 9:05 PM EST [facility] Blood Venous blood specimen / Unknown Venipuncture / Unknown 03/24/2024 8:23 PM EST 03/24/2024 8:28 PM EST Loren SUAREZ LAB BLOOD ORDERABLES Final Resul t [facility] [address] [place] [address], [place] [phone] * Troponin I high sensitivity (03/24/2024 7:11 PM EST) Only the most recent of2 resultswithin the time period is included. High Sensitivity Troponin I <3 <=54 ng/L LAB CHEMISTRY METHOD 03/24/2024 8:13 PM EST [facility] Blood Venous blood specimen / Unknown Venipuncture / Unknown 03/24/2024 7:11 PM EST 03/24/2024 7:45 PM EST Narrative [facility] ([facility] - 03/24/2024 8:13 PM EST High levels of biotin in samples may falsely decrease hsTroponin values. ??Use caution when interpreting hsTroponin results in patients taking biotin who exhibit renal impairment (eGFR <60) or in patients taking more than 20 mg/day of biotin. Loren SUAREZ LAB BLOOD ORDERABLES Final Resul t [facility] ([facility] [address] [place] [address], [place] [phone] from Last 3 Months Insurance MEDICARE MEDICAID [...] currently active code status orders. Care Teams Office Support Assistant Relationship Specialty Start Date End Date Donna Romero MD [address] [place] [address] PCP - General Internal Medicine 10/30/18
--- OUTSIDE RECORDS SUMMARY | 2024-04-17 07:45 | XMS_ITS | Encounter Summary ---
Author Organization [facility] Address [address] [place] [address] Care Team Providers Care Mold Yard Crane Operator Name Role Phone Donna Romero Md, MD Primary Care Provider Unavailable Mannie Morillo MD Unavailable Josep Givens PA-C Unavailable [phone] Encounter Details Date Type Department Care Team Description 05/22/2021 Orders Only [facility] Thoracic Surgery [place] [address] [facility] [address] [place] [address] [phone] Josep Gievns PA-C 299 [facility] [address] [place] [address] [phone] Mediastinal mass Social History Tobacco Use Types Packs/Day Years Used Date Smoking Tobacco: Every Day Cigarettes 0.5 Smokeless Tobacco: Never Alcohol Use Standard Drinks/Week Comments No 0 (1 standard drink = 0.6 oz pur e alcohol) Sex Assigned at Date Recorded Not on file Job Start Date Occupation Industry Not on file Not on file Not on file documented as of this encounter Plan of Treatment Not on file documented as of this encounter Procedures Procedure Name Priority Date/Time Associated Diagnosis Comments CAT SCAN OF CHEST NO CONTRAST Routine 05/20/2021 Mediastinal mass documented in this encounter Results * CAT SCAN OF CHEST NO CONTRAST (05/20/2021) Josep Givens PA-C CT SCANS [facility] documented in this encounter Visit Diagnoses Diagnosis Mediastinal mass Swelling, mass, or lump in chest documented in this encounter Care Teams Mold Yard Crane Operator Relationship Specialty Start Date End Date Donna Romero MD, MD PCP - General Internal Medicine 07/11/20 Mannie Morillo MD Specialist Lung Cancer Trader Fixed Income 06/03/21 Josep Givens PA-C [address] [place] [phone] Specialist Thoracic Surgery 07/08/22 documented as of this encounter
--- OUTSIDE RECORDS SUMMARY | 2024-04-17 07:45 | XMS_ITS | Encounter Summary ---
Author Organization [facility] Address [address] [facility] [place] [address] Care Team Providers Care Forge Helper Name Role Phone Donna Romero Md, MD Primary Care Provider Unavailable Mannie Morillo MD Unavailable Josep Givens PA-C Unavailable [phone] Encounter Details Date Type Department Care Team Description 03/17/2022 Release of Information Medical Records [address] [place] [id number] Abstract, Provider Social History Tobacco Use Types Packs/Day Years Used Date Smoking Tobacco: Former Cigarettes 0.5 Q uit: 05/11/2021 Smokeless Tobacco: Never Comments:Smoke 1-2 a day Alcohol Use Standard Drinks/Week Comments No 0 (1 standard drink = 0.6 oz pur e alcohol) Sex Assigned at Date Recorded Not on file Job Start Date Occupation Industry Not on file Not on file Not on file COVID-19 Exposure Response Date Recorded In the last 10 days, have kristina u been in contact with someone who was confirmed or suspected to have Coronavirus/COVID-19? No / Unsure 03/10/2022 9:22 AM EST documented as of this encounter Plan of Treatment Not on file documented as of this encounter Visit Diagnoses Not on filedocumented in this encounter Care Teams Forge Helper Relationship Specialty Start Date End Date Donna Romero MD, MD PCP - General Internal Medicine 07/11/20 Mannie Morillo MD Specialist Lung Cancer Theatrical Trouper 06/03/21 Josep Givens PA-C [address] [phone] Specialist Thoracic Surgery 07/08/22 documented as of this encounter
--- OUTSIDE RECORDS SUMMARY | 2024-04-17 07:45 | XMS_ITS | Encounter Summary ---
Author Organization [facility] Address [address] [place] [address] Care Team Providers Care In Store Marketing Associate Name Role Phone Donna Romero Md, MD Primary Care Provider Unavailable Mannie Morillo MD Unavailable Josep Givens PA-C Unavailable [phone] Encounter Details Date Type Department Care Team Description 12/10/2021 Orders Only [facility] Thoracic Surgery [place] 299 [facility] [address] [place] [phone] Josep Givens PA-C 299 [facility] [address] [place] [phone] History of lung cancer; Cyst of mediastinum Social History Tobacco Use Types Packs/Day Years Used Date Smoking Tobacco: Former Cigarettes 0.5 Q uit: 05/11/2021 Smokeless Tobacco: Never Alcohol Use Standard [...] CAT SCAN OF CHEST NO CONTRAST Routine 12/10/2021 History of lung cancer Cyst of mediastinum documented in this encounter Results * CAT SCAN OF CHEST NO CONTRAST (12/10/2021) Josep Givens PA-C CT [facility] documented in this encounter Visit Diagnoses Diagnosis History of lung cancer Personal history of malignant neoplasm of bronchus and lung 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
--- OUTSIDE RECORDS SUMMARY | 2024-04-17 07:45 | XMS_ITS | Encounter Summary ---
Author Organization [facility] Address [address] [facility] [place] [address] Care Team Providers Care Gym Instructor Name Role Phone Donna Romero Md, MD Primary Care Provider Unavailable Mannie Morillo MD Unavailable Josep Givens PA-C Unavailable [phone] Encounter Details Date Type Department Care Team Description 08/27/2022 Orders Only Gastroenterology - [place] 175 [facility] [address] [place] [phone] David Burton PA-C [address] [address] Gastroesophageal reflux disease, unspecified whether esophagitis present; Nausea and vomiting, unspecified vomiting type; Hiatal hernia; History of lung cancer; Dysphagia, unspecified type Social History Tobacco Use Types Packs/Day Years [...] Procedure Name Priority Date/Time Associated Diagnosis Comments CHG RADIOLOGIC EXAM ESOPHAGUS SINGLE CONTRAST STUDY Routine 08/27/2022 Gastroesophageal reflux disease, unspecified whether esophagitis present Nausea and vomiting, unspecified vomiting type Hiatal hernia History of lung cancer Dysphagia, unspecified type documented in this encounter Results * RADIOLOGIC EXAM ESOPHAGUS SINGLE CONTRAST STUDY (08/27/2022) 08/27/2022 David Burton PA-C RADIOLOGY documented in this encounter Visit Diagnoses Diagnosis Gastroesophageal reflux disease, unspecified whether esophagitis present Nausea and vomiting, unspecified vomiting type Hiatal hernia Diaphragmatic hernia without mention of obstruction or gangrene History of lung cancer Personal history of malignant neoplasm of bronchus and lung Dysphagia, unspecified type documented in this encounter Care Teams Gym Instructor Relationship Specialty Start Date End Date Donna Romero MD, MD PCP - General Internal Medicine 07/11/20 Mannie Morillo MD Specialist Lung Cancer Toilet Products Molder 06/03/21 Josep Givens PA-C [address] [place] [phone] Specialist Thoracic Surgery 07/08/22 documented as of this encounter
--- OUTSIDE RECORDS SUMMARY | 2024-04-17 07:45 | XMS_ITS | Encounter Summary ---
Author Organization [facility] Address [address] [facility] [place] [address] Care Team Providers Care Electronics Engineering Manager Name Role Phone Donna Romero Md, MD Primary Care Provider Unavailable Mannie Morillo MD Unavailable Josep Givens PA-C Unavailable [phone] Encounter Details Date Type Department Care Team Description 06/16/2022 Telephone Gastroenterology - [place] [address] [facility] [address] [place] [phone] David Burton PA-C [address] [place] [phone] Social History Tobacco Use Types Packs/Day Years [...] Recorded In the last 10 days, have yo u been in contact with someone who was confirmed or suspected to have Coronavirus/COVID-19? No / Unsure 06/15/2022 8:32 AM EDT documented as of this encounter Miscellaneous Notes * Telephone Encounter - Ara Dutton - 06/16/2022 8:18 AM EDT Booked Barium Swallow at [address] [facility] for patient on August 27 at 8:30am w/ arrival at 8:10am. Called the patient to notify of appointment details, including nothing to eat/drink after midnight. I also mailed an appointment letter. Order has been faxed to [phone]. documented in this encounter Plan of Treatment Not on file documented as of this encounter Visit Diagnoses Not on filedocumented in this encounter Care Teams Electronics Engineering Manager Relationship Specialty Start Date End Date Donna Romero MD, MD PCP - General Internal Medicine 07/11/20 Mannie Morillo MD Specialist Lung Cancer Camp Assistant 06/03/21 Josep Givens PA-C [address] [place] [phone] Specialist Thoracic Surgery 07/08/22 documented as of this encounter
--- OUTSIDE RECORDS SUMMARY | 2024-04-17 07:45 | XMS_ITS | Encounter Summary ---
Author Organization [facility] Address [address] [facility] [place] [address] Care Team Providers Care Judge Clerk Name Role Phone Donna Romero Md, MD Primary Care Provider Unavailable Mannie Morillo MD Unavailable Josep Givens PA-C Unavailable [phone] Reason for Visit * Reason Comments E-prescribe Rx Request Encounter Details Date Type Department Care Team Description 07/14/2021 Refill Pulmonology - [place] 175 [facility] [address] [place] [phone] Ana Flaherty MD 175 [place] [phone] E-prescribe Rx Request Social History Tobacco Use Types Packs/Day Years Used Date Smoking Tobacco: Former Cigarettes 0.5 Q uit: 05/11/2021 Smokeless Tobacco: Never Alcohol Use Standard Drinks/Week Comments No 0 (1 standard drink = 0.6 oz pur e alcohol) Sex Assigned at Date Recorded Not on file Job Start Date Occupation Industry Not on file Not on file Not on file documented as of this encounter Miscellaneous Notes * Telephone Encounter - Geraldine Yangerrol - 07/14/2021 9:16 AM EDT Patient would like script to be: E-PRESCRIBED/FAXED TO PHARMACY WHEN WAS THE PATIENT'S LAST APPOINTMENT IN ADULT MEDICINE? 04/16/21 WHEN WAS THE LAST TIME THE PATIENT SAW THEIR PCP? Same as above Does patient have an upcoming appointment? No-patient refused appointment, will call back to book appointment (THE MEDICATION REQUESTED IS ON THE MED LIST ABOVE) All of the medications requested were on the CURRENT MEDS list Did you check the Pharmacy information above?: YES Patient wants: 30 -day supply Is this a mail order prescription request ? NO If the refill is from a FAXED refill request what is the RX # listed on the fax? N/A Patients current insurance carrier is: [place] / [place] / Product Type: MEDICAID [id number] documented in this encounter Plan of Treatment Not on file documented as of this encounter Visit Diagnoses Diagnosis Chronic obstructive pulmonary disease, unspecified COPD type (HCC) documented in this encounter Care Teams Judge Clerk Relationship Specialty Start Date End Date Donna Romero MD, MD PCP - General Internal Medicine 07/11/20 Mannie Morillo MD Specialist Lung Cancer Full Stack Python Developer 06/03/21 Josep Givens PA-C [address] [place] [phone] Specialist Thoracic Surgery 07/08/22 documented as of this encounter
--- OUTSIDE RECORDS SUMMARY | 2024-04-17 07:45 | XMS_ITS | Encounter Summary ---
Author Organization [facility] Address [address] [facility] [place] [address] Care Team Providers Care Traffic Rate Computer Name Role Phone Donna Romero Md, MD Primary Care Provider Unavailable Mannie Morillo MD Unavailable Josep Givens PA-C Unavailable [phone] Encounter Details Date Type Department Care Team Description 06/09/2021 Orders Only [facility] [address] [facility] [place] [address] Mannie Morillo MD [address] [place] [phone] Social History Tobacco Use Types Packs/Day Years [...] In the last 10 days, have kristina calvo been in contact with someone who was confirmed or suspected to have Coronavirus/COVID-19? No / Unsure 06/09/2021 8:54 AM EDT documented as of this encounter Plan of Treatment Not on file documented as of this encounter Procedures Procedure Name Priority Date/Time Associated Diagnosis Comments OUTSIDE PATHOLOGY Routine 06/03/2020 documented in this encounter Results * OUTSIDE PATHOLOGY (06/03/2020) Mannie Morillo MD OUTSIDE LAB documented in this encounter Visit Diagnoses Not on filedocumented in this encounter Care Teams Traffic Rate Computer Relationship Specialty Start Date End Date Donna Romero MD, MD PCP - General Internal Medicine 07/11/20 Mannie Morillo MD Specialist Lung Cancer High Rigger 06/03/21 Josep Givens PA-C [address] [place] [phone] Specialist Thoracic Surgery 07/08/22 documented as of this encounter
--- OUTSIDE RECORDS SUMMARY | 2024-04-17 07:45 | XMS_ITS | Encounter Summary ---
Author Organization [facility] Address [address] [place] [address] Care Team Providers Care Supervisor [employer] Name Role Phone Donna Romero MD Primary Care Provider [phone] Reason for Visit * Reason Comments Shortness of Breath * Auth/Cert (Routine) Specialty Diagnoses / Procedures Referred By Contac t Referred To Contact Diagnoses Shortness of breath COPD exacerbation (CMS/HCC) Multifocal pneumonia Procedures [facility] IP/OBS CARE ADMIT/DISCHARGE SAME DATE MODERATE LEVEL Josep Ayala MD [address] [place] [id number] Phone: tel: fax: [facility] [address] [place] [phone] Phone: tel: Referral ID Status Reason Start Date Expiration Date Visits Re quested Visits Authorized [id number] 1 1 Encounter Details Date Type Department Care Team (Late st Contact Info) Description 03/24/2024 2:29 PM EST - 03/25/2024 3:51 PM EST Emergency [facility] [address] [place] [phone] Bryce Woods MD [address] [place] [id number] Josep Ayala MD [address] [place] [phone] [place] [address] [place] [phone] Donis Haas MD [address] [place] [address] Multifocal pneumonia (Primary Dx); Shortness [...] Signed Date: 03/24/2024 16:33 ET Workstation ID: [id number] Transcribed By: Self Edit Transcribed Date: 03/24/2024 [...] Cooperative, calm. This note was written using Drimmi speech recognition software which is prone to typographical errors. If questions occur please do not hesitate to call this provider. Follow-Up Instructions and Recommendations Brayan Cain [address] [place] [phone] No discharge procedures on file. There are [...] Trelegy Ellipta 100-62.5-25 mcg inhaler Generic drug: yubbtixczvd-pqetmzsrczbn-oqbzerxfbq Inhale into the lungs. Where to Get Your Medications These medications were sent to [id number] - [place] CAIN - [address] [facility] [address] [place] [phone] azithromycin 500 mg tablet cefpodoxime 200 mg [...] seen and examined the patient with the resident/PA/ORTHO TECH and smith elements of all parts of the encounter were performed by me. Patient was reassessed on more than one occasion when required. I reviewed the interval history, interpreted all available radiographic, laboratory and physiological data at the time of service. I agree with the assessment and plan as documented by the resident/PA/ORTHO TECH with additions. Patient is already feeling better, [...] 0.5-2.5 mg/3 mL nebulizer solutionIndicatio ns:COPD exacerbation ([facility]) Take 3 mL by nebulization 4 (four) [...] Discharge Needs Discipline following for SNF placement Professor Of Floriculture Informed Choice Informed Choice Given? Yes Transportation [...] infectious concerns): [] Yes / [x] No Service Center Representative: [] Yes / [x] No If YES, Cardiac Rhythm: [] NSR, [] SB, [] ST, [] A-FIB, [] A-Flutter, [] Pacemaker, [] 1st Degree HB, [] 2nd Degree HB, [] 3rd Degree HB Reason for Service Center Representative: VS: Visit Vitals BP 103/67 (BP Location: [...] was negative. Submitted by and Phone Extension: [phone] * Melba Villalpando RN - 03/24/2024 2:29 [...] tablet Take 20 mg by mouth daily. kkpqfxindbs-gxdxtjwwdvwl-bqsxcfbddd (Trelegy Ellipta) 100-62.5-25 mcg inhaler Inhale into [...] Detected Narrative: Testing was performed using the Althe[employer] Respiratory Pathogen PCR Assay. All results must [...] Procedure Abnormality Status --------- ------ CBC auto differential[[id number]] Abnormal Final result Please view results for [...] Signed Date: 03/24/2024 16:33 ET Workstation ID: [id number] Transcribed By: Self Edit Transcribed Date: 03/24/2024 [...] Shortness of breath Multifocal pneumonia COPD exacerbation ([facility]) Procedures Procedures Diagnosis 1. Multifocal pneumonia 2. [...] Please contact author [Kemi Rivero NP] via [employer]. Patient: Jamila Ramírez Admission Date/Time: 03/24/2024 2:29 [...] Medical History Past Medical History: Diagnosis Date ??? COPD (chronic obstructive pulmonary disease) ([facility]) DX:COPD (chronic obstructive pulmonary disease) (HCC) ??? Depression 04/24/2017 DX:Depression ??? Dysphagia DX:Dysphagia ??? Esophageal reflux DX:Esophageal reflux ??? Hiatal hernia DX:Hiatal hernia ??? Lung cancer (CMS/HCC) DX:Lung cancer (HCC) ??? Nocturnal hypoxia 04/24/2017 DX:Nocturnal hypoxia ??? Ventral hernia without obstruction or gangrene DX:Ventral hernia without obstruction or gangrene Past Surgical History Past Surgical History: Procedure Laterality Date ??? [...] Take 20 mg by mouth daily. ??? sgjlmddxkwi-bnvdocuhddwk-luqsuiaynu (Trelegy Ellipta) 100-62.5-25 mcg inhaler Inhale into the lungs. ??? nabumetone (RELAFEN) 500 mg tablet Take 1 Tablet by mouth 2 times daily. ??? omeprazole (PriLOSEC) [address] capsule TAKE ONE CAPSULE BY MOUTH EVERY MORNING ON AN EMPTY STOMACH; WAIT 30 MINUTES AND THEN EAT TO ACTIVATE MEDICATION ??? Oxygen Therapy (O2) gas Inhale into the lungs. Oxygen Historical (HISTORICAL OXYGEN) ??? romosozumab-aqqg (Evenity) Inject 2.34 mL (210 mg total) under the skin every 30 (thirty) days. ??? [DISCONTINUED] meloxicam (MOBIC) 15 mg tablet Take 1 Tablet by mouth daily. ??? [DISCONTINUED] PARoxetine (PAXIL) 40 mg tablet Take 40 mg by mouth every morning. ??? [DISCONTINUED] pramipexole (MIRAPEX) 0.25 mg tablet Take [...] Signed Date: 03/24/2024 16:33 ET Workstation ID: [id number] Transcribed By: Self Edit Transcribed Date: 03/24/2024 [...] Mediastinal adenopathy. - Patient is followed by motor polarizer Dr. Flaherty - Albuterol as needed, scheduled [...] HCP/emergency contact is patient's daughter Dayne Dickens [phone] Case and plan discussed with Dr Josep [...] Info) Description 07/09/2024 10:30 AM EDT Appointment [facility] CT Scan [address] [place] [address] 07/19/2024 9:00 AM EDT Ancillary Procedure Pul[facility]gy - [place] [address] [phone] Adarsh Henriquez 07/19/2024 10:00 AM EDT Office Visit [facility] - [place] 175 [facility] [address] [place] [address] Ana Flaherty MD 175 [facility] [address] [place] [address] documented as of this encounter Procedures Procedure [...] Sputum No pathogens isolated. 03/29/2024 9:41 AM [facility] Gram Stain Result >25 WBCs, 10-25 Epithelials - Acceptable for Culture(A) 03/29/2024 9:41 AM [facility] Gram Stain Result Many Polymorphonuclear leukocytes(A) 03/29/2024 9:41 AM [facility] Gram Stain Result Moderate Epithelial cells(A) 03/29/2024 9:41 AM [facility] Gram Stain Result Moderate Gram positive bacilli(A) 03/29/2024 9:41 AM [facility] Gram Stain Result Moderate Gram positive cocci in pairs and chains(A) 03/29/2024 9:41 AM [facility] Gram Stain Result Few Gram negative bacilli(A) 03/29/2024 9:41 AM [facility] Sputum, expectorated Oropharyngeal structure / Unknown 03/25/2024 8:26 AM EST 03/25/2024 8:39 AM EST Kemi Rivero DOUBLE END CHUCKING MACHINE OPERATOR LAB MICROBIOLOGY - GENER AL ORDERABLES Final Result [facility] [address] [place] [address], * (ABNORMAL) CBC auto differential (03/25/2024 6:02 AM EST) WBC 11.5(H) 4.8 - 10.8 K/mcL LAB HEMETOLOGY METHOD 03/25/2024 6:50 AM EST [facility] RBC 4.00 3.80 - 4.80 M/mcL LAB HEMETOLOGY METHOD 03/25/2024 6:50 AM [facility] Hemoglobin 12.2 11.5 - 16.0 g/dL LAB HEMETOLOGY METHOD 03/25/2024 6:50 AM [facility] Hematocrit 37.9 35.0 - 47.0 % LAB HEMETOLOGY METHOD 03/25/2024 6:50 AM EST [facility] MCV 94.8 79.0 - 98.0 FL LAB HEMETOLOGY METHOD 03/25/2024 6:50 AM [facility] MCH 30.5 27.0 - 32.0 pcg LAB HEMETOLOGY METHOD 03/25/2024 6:50 AM [facility] MCHC 32.2 32.0 - 37.0 g/dL LAB HEMETOLOGY METHOD 03/25/2024 6:50 AM [facility] RDW 12.7 11.0 - 15.0 % LAB HEMETOLOGY METHOD 03/25/2024 6:50 AM [facility] Platelets 380 130 - 400 K/mcL LAB HEMETOLOGY METHOD 03/25/2024 6:50 AM [facility] MPV 9.3 7.0 - 11.0 FL LAB HEMETOLOGY METHOD 03/25/2024 6:50 AM [facility] NRBC 0.0 <1.0 % LAB HEMETOLOGY METHOD 03/25/2024 6:50 AM [facility] NRBC Absolute 0.00 <0.10 K/mcL LAB HEMETOLOGY METHOD 03/25/2024 6:50 AM [facility] Neutrophils Relative 82.9 % LAB HEMETOLOGY METHOD 03/25/2024 6:50 AM [facility] Lymphocytes Relative 10.1 % LAB HEMETOLOGY METHOD 03/25/2024 6:50 AM [facility] Monocytes Relative 3.1 % LAB HEMETOLOGY METHOD 03/25/2024 6:50 AM [facility] Eosinophils Relative 0.0 % LAB HEMETOLOGY METHOD 03/25/2024 6:50 AM [facility] Basophils Relative 0.3 % LAB HEMETOLOGY METHOD 03/25/2024 6:50 AM [facility] Immature Granulocytes Relative 3.6 % LAB HEMETOLOGY METHOD 03/25/2024 6:50 AM [facility] Neutrophils Absolute 9.55(H) 1.50 - 7.00 K/mcL LAB HEMETOLOGY METHOD 03/25/2024 6:50 AM [facility] Lymphocytes Absolute 1.16 1.00 - 5.00 K/mcL LAB HEMETOLOGY METHOD 03/25/2024 6:50 AM [facility] Monocytes Absolute 0.36 0.20 - 1.00 K/mcL LAB HEMETOLOGY METHOD 03/25/2024 6:50 AM [facility] Eosinophils Absolute 0.00 0.00 - 0.50 K/mcL LAB HEMETOLOGY METHOD 03/25/2024 6:50 AM [facility] Basophils Absolute 0.03 0.00 - 0.20 K/mcL LAB HEMETOLOGY METHOD 03/25/2024 6:50 AM EST [facility] Immature Granulocytes Absolute 0.41(H) 0.00 - 0.03 K/mcL LAB HEMETOLOGY METHOD 03/25/2024 6:50 AM EST [facility] Blood Venous blood specimen / Unknown Venipuncture / Unknown 03/25/2024 6:02 AM EST 03/25/2024 6:34 AM EST us Josep Ayala MD LAB BLOOD ORDERABLES Final Result [facility] [address] [place] [address], * Streptococcus pneumoniae antibodies, IgG, 23 serotypes [...] developed and its performance characteristics determined by [facility] in a manner consistent with CLIA requirements. This test has not been cleared or approved by the U.S. Food and Drug Administration. Test Performed by: [address] [address] Print Production Coordinator: Erin Nicoel Ph.D.; CLIA# [id number] Blood Venous blood specimen / Unknown Venipuncture / Unknown 03/25/2024 6:02 AM EST 03/25/2024 6:33 AM EST Kemi Rivero NP LAB BLOOD ORDERABLES Fin al Result [facility] [address] [place] [address] * (ABNORMAL) Basic metabolic panel (03/25/2024 6:02 AM EST) Sodium 144 133 - 145 mmol/L LAB CHEMISTRY METHOD 03/25/2024 7:13 AM EST [facility] Potassium 4.3 3.5 - 5.5 mmol/L LAB CHEMISTRY METHOD 03/25/2024 7:13 AM [facility] Chloride 113(H) 96 - 110 mmol/L LAB CHEMISTRY METHOD 03/25/2024 7:13 AM [facility] CO2 27 21 - 32 mmol/L LAB CHEMISTRY METHOD 03/25/2024 7:13 AM [facility] Anion Gap 4 3 - 11 LAB CHEMISTRY METHOD 03/25/2024 7:13 AM [facility] Glucose 128(H) 70 - 100 mg/dL LAB CHEMISTRY METHOD 03/25/2024 7:13 AM [facility] BUN 18 5 - 25 mg/dL LAB CHEMISTRY METHOD 03/25/2024 7:13 AM [facility] Creatinine 0.47(L) 0.50 - 1.10 mg/dL LAB CHEMISTRY METHOD 03/25/2024 7:13 AM [facility] eGFR 103 >=60 mL/min/1. 73m2 LAB CHEMISTRY METHOD 03/25/2024 7:13 AM [facility] Comment:Calculation based on the??Chronic Kidney Disease Epidemiology Collaboration (CKD-EPI) equation refit??without adjustment for race. BUN/Creatinine Ratio 38.3 LAB CHEMISTRY METHOD 03/25/2024 7:13 AM [facility] Calcium 7.9(L) 8.5 - 10.5 mg/dL LAB CHEMISTRY METHOD 03/25/2024 7:13 AM [facility] Blood Venous blood specimen / Unknown Venipuncture / Unknown 03/25/2024 6:02 AM EST 03/25/2024 6:33 AM EST us Josep Ayala MD LAB BLOOD ORDERABLES Final Result [facility] [address] [place] [address], * Rader urine culture tube (03/24/2024 11:09 PM EST) Extra Tube Hold for add-ons. 03/25/2024 1:02 AM [facility] Comment:Auto resulted. Urine Urine specimen obtained by clean catch procedure / Unknown Non-blood Collection / Unknown 03/24/2024 11:09 PM EST 03/24/2024 11:49 PM EST us Kemi Andrea Anastacia Rivero DOUBLE END CHUCKING MACHINE OPERATOR LAB URINE ORDERABLES Fin al Result [facility] [address] [place] [address], [place] [phone] * (ABNORMAL) Urinalysis with reflex microscopic and culture (03/24/2024 11:09 PM EST) Specific [place] Urine >1.045(H) 1.003 - 1.030 LAB URINALYSIS - AUTOMATED METHOD 03/24/2024 11:56 PM [facility] pH, Urine 5.5 5.0 - 8.0 pH LAB URINALYSIS - AUTOMATED METHOD 03/24/2024 11:56 PM [facility] Leukocytes, Urine Negative Negative LAB URINALYSIS - AUTOMATED METHOD 03/24/2024 11:56 PM [facility] Nitrite, Urine Negative Negative LAB URINALYSIS - AUTOMATED METHOD 03/24/2024 11:56 PM [facility] Protein, Urine Trace <=Trace mg/dL LAB URINALYSIS - AUTOMATED METHOD 03/24/2024 11:56 PM [facility] Glucose, Urine >=1000(A) Negative mg/dL LAB URINALYSIS - AUTOMATED METHOD 03/24/2024 11:56 PM [facility] Ketones, Urine Negative Negative mg/dL LAB URINALYSIS - AUTOMATED METHOD 03/24/2024 11:56 PM [facility] Urobilinogen , Urine 1.0 0.2 - 1.0 mg/dL LAB URINALYSIS - AUTOMATED METHOD 03/24/2024 11:56 PM [facility] Bilirubin, Urine Negative Negative LAB URINALYSIS - AUTOMATED METHOD 03/24/2024 11:56 PM [facility] Blood, Urine Negative Negative LAB URINALYSIS - AUTOMATED METHOD 03/24/2024 11:56 PM [facility] Urine Urine specimen obtained by clean catch procedure / Unknown Non-blood Collection / Unknown 03/24/2024 11:09 PM EST 03/24/2024 11:49 PM EST Kemi Rivero NP LAB URINE ORDERABLES Fin al Result Performing Organization Address [facility]/ZIP Co de Phone Number [facility] [address] [place] [address], * Legionella antigen urine, EIA (03/24/2024 11:09 PM EST) Legionella Antigen, Ur Negative Negative 03/25/2024 12:53 AM EST [facility] Urine Urine specimen from urethra / Unknown Non-blood Collection / Unknown 03/24/2024 11:09 PM EST 03/24/2024 11:49 PM EST Narrative [facility] - 03/25/2024 12:53 AM [...] ORDERABLES Fin al Result Performing Organization Address [facility] Co de Phone Number [facility] [address] [place] [address], * Lactate, with Reflex (03/24/2024 8:23 PM EST) LACTIC ACID 0.8 0.4 - 2.0 mmol/L LAB CHEMISTRY METHOD 03/24/2024 9:05 PM EST [facility] Blood Venous blood specimen / Unknown Venipuncture / Unknown 03/24/2024 8:23 PM EST 03/24/2024 8:28 PM EST [facility] BLOOD ORDERABLES Final Resul t [facility] [address] [place] [address], [place] [phone] * Blood Culture, Peripheral #2 (03/24/2024 8:23 PM EST) Culture, Blood No growth at 5 days LAB MICROBIOLOGY METHOD 03/29/2024 9:01 PM EST [facility] Blood Venous blood specimen / Unknown Venipuncture / Unknown 03/24/2024 8:23 PM EST 03/24/2024 8:28 PM EST [facility] LAB MICROBIOLOGY - GENERAL ORDER ERAN Final Result Performing Organization Address [facility]/ZIP Co de Phone Number [facility] [address] [place] [address], [place] [phone] * Blood Culture, Peripheral #1 (03/24/2024 8:23 PM EST) Culture, Blood No growth at 5 days LAB MICROBIOLOGY METHOD 03/29/2024 9:01 PM EST [facility] Blood Venous blood specimen / Unknown Venipuncture / Unknown 03/24/2024 8:23 PM EST 03/24/2024 8:28 PM EST [facility] MICROBIOLOGY - GENERAL ORDER ERAN Final Result [facility] [address] [place] [address], [place] [phone] * Troponin I high sensitivity (03/24/2024 7:11 PM EST) High Sensitivity Troponin I <3 <=54 ng/L LAB CHEMISTRY METHOD 03/24/2024 8:13 PM EST [facility] Blood Venous blood specimen / Unknown Venipuncture / Unknown 03/24/2024 7:11 PM EST 03/24/2024 7:45 PM EST Narrative [facility] - 03/24/2024 8:13 PM EST High levels of biotin in samples may falsely decrease hsTroponin values. ??Use caution when interpreting hsTroponin results in patients taking biotin who exhibit renal impairment (eGFR <60) or in patients taking more than 20 mg/day of biotin. us Loren SUAREZ LAB BLOOD ORDERABLES Final Resul t [facility] [address] [place] [address], * CT Angio Chest wo and/or w [...] Signed Date: 03/24/2024 16:33 ET Workstation ID: [id number] Transcribed By: Self Edit Transcribed Date: 03/24/2024 [...] Signed Date: 03/24/2024 16:33 ET Workstation ID: [id number] Transcribed By: Self Edit Transcribed Date: 03/24/2024 16:29 ET Taina SUAREZ IMG XR PROCEDURES Elsa l Result * Procalcitonin (03/24/2024 4:05 PM EST) Procalcitonin 0.04 <=0.16 ng/mL LAB CHEMISTRY METHOD 03/25/2024 8:18 AM EST [facility] Blood Venous blood specimen / Unknown Venipuncture / Unknown 03/24/2024 4:05 PM EST 03/24/2024 4:12 PM EST [facility] - 03/25/2024 8:18 AM EST Procalcitonin [...] Ayala MD LAB BLOOD ORDERABLES Final Result [facility] [address] [place] [address], * Respiratory virus panel molecular study (03/24/2024 4:05 PM EST) Adenovirus Detection by PCR Not Detected Not Detected LAB MICROBIOLOGY METHOD 03/24/2024 5:08 PM [facility] Influenza A PCR Not Detected Not Detected LAB MICROBIOLOGY METHOD 03/24/2024 5:08 PM [facility] Influenza B PCR Not Detected Not Detected LAB MICROBIOLOGY METHOD 03/24/2024 5:08 PM [facility] Coronavirus 229E Not Detected Not Detected LAB MICROBIOLOGY METHOD 03/24/2024 5:08 PM [facility] Coronavirus HKU1 Not Detected Not Detected LAB MICROBIOLOGY METHOD 03/24/2024 5:08 PM [facility] Coronavirus OC43 Not Detected Not Detected LAB MICROBIOLOGY METHOD 03/24/2024 5:08 PM [facility] Coronavirus NL63 Not Detected Not Detected LAB MICROBIOLOGY METHOD 03/24/2024 5:08 PM [facility] Parainfluenza Virus 1 Not Detected Not Detected LAB MICROBIOLOGY METHOD 03/24/2024 5:08 PM [facility] Parainfluenza Virus 2 Not Detected Not Detected LAB MICROBIOLOGY METHOD 03/24/2024 5:08 PM [facility] Parainfluenza Virus 3 Not Detected Not Detected LAB MICROBIOLOGY METHOD 03/24/2024 5:08 PM [facility] Parainfluenza Virus 4 Not Detected Not Detected LAB MICROBIOLOGY METHOD 03/24/2024 5:08 PM [facility] RSV PCR Not Detected Not Detected LAB MICROBIOLOGY METHOD 03/24/2024 5:08 PM [facility] Human Metapneumovirus A and B Not Detected Not Detected LAB MICROBIOLOGY METHOD 03/24/2024 5:08 PM [facility] Rhinovirus/Entero virus Not Detected Not Detected LAB MICROBIOLOGY METHOD 03/24/2024 5:08 PM [facility] Bordetella pertussis Not Detected Not Detected LAB MICROBIOLOGY METHOD 03/24/2024 5:08 PM [facility] Bordetella parapertussis Not Detected Not Detected LAB MICROBIOLOGY METHOD 03/24/2024 5:08 PM [facility] Mycoplasma pneumo by PCR Not Detected Not Detected LAB MICROBIOLOGY METHOD 03/24/2024 5:08 PM [facility] Chlamydia pneumoniae Not Detected Not Detected LAB MICROBIOLOGY METHOD 03/24/2024 5:08 PM [facility] SARS COV-2 Not Detected Not Detected LAB MICROBIOLOGY METHOD 03/24/2024 5:08 PM [facility] Swab Both anterior nares / Unknown Non-blood Collection / Unknown 03/24/2024 4:05 PM EST 03/24/2024 4:15 PM EST Narrative [facility] - 03/24/2024 5:08 PM EST Testing was performed using the [employer] Respiratory Pathogen PCR Assay. All results must [...] that are below the limit of detection. [facility] LAB MICROBIOLOGY - GENERAL ORDER ERAN Final Result Performing Organization Address City/[facility]/ZIP Co de Phone Number [facility] [address] [place] [address], [place] [phone] * (ABNORMAL) Magnesium (03/24/2024 4:05 PM EST) Pathologist [facility] Magnesium 1.7(L) 1.9 - 2.6 mg/dL LAB CHEMISTRY METHOD 03/24/2024 4:39 PM EST [facility] Blood Venous blood specimen / Unknown Venipuncture / Unknown 03/24/2024 4:05 PM EST 03/24/2024 4:12 PM EST [facility] BLOOD ORDERABLES Final Resul t Performing Organization Address City/[facility]/ZIP Co de Phone Number [facility] [address] [place] [address], [place] [phone] * Troponin I high sensitivity (03/24/2024 4:05 PM EST) Pathologist [facility] High Sensitivity Troponin I <3 <=54 ng/L LAB CHEMISTRY METHOD 03/24/2024 4:43 PM EST [facility] Blood Venous blood specimen / Unknown Venipuncture / Unknown 03/24/2024 4:05 PM EST 03/24/2024 4:12 PM EST Narrative [facility] - 03/24/2024 4:43 PM EST High levels of biotin in samples may falsely decrease hsTroponin values. ??Use caution when interpreting hsTroponin results in patients taking biotin who exhibit renal impairment (eGFR <60) or in patients taking more than 20 mg/day of biotin. [facility] LAB BLOOD ORDERABLES Final Resul t Performing Organization Address [facility]/ZIP Co de Phone Number [facility] [address] [place] [address], [place] [phone] * B-type natriuretic peptide (03/24/2024 4:05 PM EST) Pathologist [facility] BNP 10 <=100 pcg/mL LAB CHEMISTRY METHOD 03/24/2024 4:57 PM EST [facility] Blood Venous blood specimen / Unknown Venipuncture / Unknown 03/24/2024 4:05 PM EST 03/24/2024 4:12 PM EST [facility] BLOOD ORDERABLES Final Resul t Performing Organization Address [facility] Co de Phone Number [facility] [address] [place] [address], [place] [phone] * (ABNORMAL) CBC auto differential (03/24/2024 4:05 PM EST) WBC 11.9(H) 4.8 - 10.8 K/mcL LAB HEMETOLOGY METHOD 03/24/2024 4:21 PM EST [facility] RBC 4.50 3.80 - 4.80 M/mcL LAB HEMETOLOGY METHOD 03/24/2024 4:21 PM EST [facility] Hemoglobin 13.6 11.5 - 16.0 g/dL LAB HEMETOLOGY METHOD 03/24/2024 4:21 PM EST [facility] Hematocrit 42.8 35.0 - 47.0 % LAB HEMETOLOGY METHOD 03/24/2024 4:21 PM [facility] MCV 94.5 79.0 - 98.0 FL LAB HEMETOLOGY METHOD 03/24/2024 4:21 PM [facility] MCH 30.0 27.0 - 32.0 pcg LAB HEMETOLOGY METHOD 03/24/2024 4:21 PM [facility] MCHC 31.8(L) 32.0 - 37.0 g/dL LAB HEMETOLOGY METHOD 03/24/2024 4:21 PM [facility] RDW 12.6 11.0 - 15.0 % LAB HEMETOLOGY METHOD 03/24/2024 4:21 PM [facility] Platelets 428(H) 130 - 400 K/mcL LAB HEMETOLOGY METHOD 03/24/2024 4:21 PM [facility] MPV 8.7 7.0 - 11.0 FL LAB HEMETOLOGY METHOD 03/24/2024 4:21 PM [facility] NRBC 0.0 <1.0 % LAB HEMETOLOGY METHOD 03/24/2024 4:21 PM [facility] NRBC Absolute 0.00 <0.10 K/mcL LAB HEMETOLOGY METHOD 03/24/2024 4:21 PM [facility] Neutrophils Relative 81.5 % LAB HEMETOLOGY METHOD 03/24/2024 4:21 PM [facility] Lymphocytes Relative 10.7 % LAB HEMETOLOGY METHOD 03/24/2024 4:21 PM [facility] Monocytes Relative 4.7 % LAB HEMETOLOGY METHOD 03/24/2024 4:21 PM [facility] Eosinophils Relative 0.2 % LAB HEMETOLOGY METHOD 03/24/2024 4:21 PM [facility] Basophils Relative 0.5 % LAB HEMETOLOGY METHOD 03/24/2024 4:21 PM EST [facility] Immature Granulocytes Relative 2.4 % LAB HEMETOLOGY METHOD 03/24/2024 4:21 PM [facility] Neutrophils Absolute 9.70(H) 1.50 - 7.00 K/mcL LAB HEMETOLOGY METHOD 03/24/2024 4:21 PM [facility] Lymphocytes Absolute 1.28 1.00 - 5.00 K/mcL LAB HEMETOLOGY METHOD 03/24/2024 4:21 PM [facility] Monocytes Absolute 0.56 0.20 - 1.00 K/mcL LAB HEMETOLOGY METHOD 03/24/2024 4:21 PM [facility] Eosinophils Absolute 0.02 0.00 - 0.50 K/mcL LAB HEMETOLOGY METHOD 03/24/2024 4:21 PM [facility] Basophils Absolute 0.06 0.00 - 0.20 K/mcL LAB HEMETOLOGY METHOD 03/24/2024 4:21 PM [facility] Immature Granulocytes Absolute 0.29(H) 0.00 - 0.03 K/mcL LAB HEMETOLOGY METHOD 03/24/2024 4:21 PM [facility] Blood Venous blood specimen / Unknown Venipuncture / Unknown 03/24/2024 4:05 PM EST 03/24/2024 4:12 PM EST us Taina SURAEZ LAB BLOOD ORDERABLES F inal Result [facility] [address] [place] [address], * (ABNORMAL) Basic metabolic panel (03/24/2024 4:05 PM EST) Pathologist [facility] Sodium 137 133 - 145 mmol/L LAB CHEMISTRY METHOD 03/24/2024 4:49 PM [facility] Potassium 3.8 3.5 - 5.5 mmol/L LAB CHEMISTRY METHOD 03/24/2024 4:49 PM [facility] Chloride 108 96 - 110 mmol/L LAB CHEMISTRY METHOD 03/24/2024 4:49 PM [facility] CO2 27 21 - 32 mmol/L LAB CHEMISTRY METHOD 03/24/2024 4:49 PM [facility] Anion Gap 2(L) 3 - 11 LAB CHEMISTRY METHOD 03/24/2024 4:49 PM [facility] Glucose 252(H) 70 - 100 mg/dL LAB CHEMISTRY METHOD 03/24/2024 4:49 PM [facility] BUN 28(H) 5 - 25 mg/dL LAB CHEMISTRY METHOD 03/24/2024 4:49 PM [facility] Creatinine 0.54 0.50 - 1.10 mg/dL LAB CHEMISTRY METHOD 03/24/2024 4:49 PM [facility] eGFR 100 >=60 mL/min/1. 73m2 LAB CHEMISTRY METHOD 03/24/2024 4:49 PM [facility] Comment:Calculation based on the??Chronic Kidney Disease Epidemiology Collaboration (CKD-EPI) equation refit??without adjustment for race. BUN/Creatinine Ratio 51.9 LAB CHEMISTRY METHOD 03/24/2024 4:49 PM [facility] Calcium 8.8 8.5 - 10.5 mg/dL LAB CHEMISTRY METHOD 03/24/2024 4:49 PM [facility] Blood Venous blood specimen / Unknown Venipuncture / Unknown 03/24/2024 4:05 PM EST 03/24/2024 4:12 PM EST us Taina SUAREZ LAB BLOOD ORDERABLES F inal Result [facility] [address] [place] [address], * ECG 12 lead (03/24/2024 3:56 PM EST) Ventricular Rate ECG 100 BPM GEMUSE Atrial Rate 100 BPM GEMUSE P-R Interval 138 ms GEMUSE QRS Duration 72 ms GEMUSE Q-T Interval 320 ms GEMUSE QTc 412 ms GEMUSE P Wave [place] 77 degrees GEMUSE R [place] 29 degrees GEMUSE T [place] 58 degrees GEMUSE ECG Interpretation Normal sinus rhythm Normal ECG When compared with ECG of 03-JUN-2020 06:36, Vent. rate has increased BY ??40 BPM Confirmed by FISH LOUIS ([id number]) on 03/25/2024 6:18:35 PM GEMUSE 03/24/2024 3:56 PM EST 03/25/2024 6:18 PM EST Taina SUAREZ ECG ORDERABLES Final Result GEMUSE [...] hours scheduled, First dose on 03/24/24 at 2051, Indication: VTE/PE Prophylaxis Given 03/24/2024 10:41 PM [...] oral, Daily, First dose on 03/24/24 at 2052, For 5 doses Given 03/25/2024 8:22 AM [...] at 2050, 2nd Line Option: -ONLY give AK if patient is unable to take orally [...] at 2100 2240 (Given - Provider: Kemi Cunningham, KAMRAN) azithromycin (ZITHROMAX) 500 mg in sodium chloride 0.9 % 250 mL IVPB (COMPLETED) 500 mg, intravenous, at 250 mL/hr, Administer over 60 Minutes, Once, On 03/24/24 at 2045, For 1 dose, Indication: Pneumonia, Community Acquired 2240 (New Bag - Provider: Kemi Cunningham, KAMRAN)2344 (Stopped - Provider: Kemi Cunningham RN) azithromycin [...] Y-site in any patient., Indication: Urinary Tract/Genitourinary 08 (Canceled Entry - Provider: Ksenia Gracia RN) enoxaparin (LOVENOX) injection 40 mg 40 mg, subcutaneous, Every 24 hours scheduled, First dose on 03/24/24 at 2051, Indication: VTE/PE Prophylaxis 2240 (Given - Provider: Kemi Cunningham RN) 08 (Canceled Entry - Provider: Ksenia Gracia RN) guaiFENesin (MUCINEX) 12 hr tablet 600 mg 600 mg, oral, Every 12 hours scheduled, First dose on 03/24/24 at 2230, Administer with plenty of fluids to ensure proper action. Do not crush, chew, or split. 2239 (Given - Provider: Kemi Cunningham RN) 08 (Given - Provider: Ksenia Gracia RN) iopamidoL (ISOVUE-370) 370 mg iodine /mL (76 %) injection 100 mL (COMPLETED) 100 mL, intravenous, Once in imaging, Starting on 03/24/24 at 1827, For 1 dose 183 (Given - Provider: Angelique Morillo) ipratropium (ATROVENT) 0.02 % nebulizer solution 0.5 mg (COMPLETED) 0.5 mg, nebulization, Once, On 03/24/24 at 1514, For 1 dose, Give with albuterol if concurrently ordered. 152 (Given - Provider: Melba Villalpando RN) ipratropium-albuteroL [...] 1703 (New Bag - Provider: Melba Villalpando RN)1801 (Stopped - Provider: Melba Villalpando RN) pantoprazole (PROTONIX) EC tablet 40 mg 40 mg, oral, Every morning before breakfast, First dose on 03/25/24 at 0700, Do not crush, chew, or split. 0539 (Given - Provid er: Kemi Cunningham RN) predniSONE (DELTASONE) tablet 40 mg 40 mg, oral, Daily, First dose on 03/24/24 at 2052, For 5 doses 2240 (Given - Provider: Kemi Cunningham RN) 0822 (Given - Provider: Ksenia Gracia RN) sodium chloride 0.9 % bolus 500 mL (COMPLETED) 500 mL, intravenous, at 1,000 mL/hr, Administer over 30 Minutes, Once, On 03/24/24 at 1716, For 1 dose 1806 (New Bag - Provider: Melba Villalpando RN)1925 (Stopped - Provider: Melba Villalpando RN) sodium chloride 0.9 % bolus 500 mL (COMPLETED) 500 mL, intravenous, at 1,000 mL/hr, Administer over 30 Minutes, Once, On 03/24/24 at 1917, For 1 dose 2055 (New Bag - Provider: Fish Gambino RN - Comment: Not given at scheduled time)2208 (Stopped - Provider: Kemi Cunningham RN) sodium chloride 0.9 % flush 10 mL (COMPLETED) 10 mL, intravenous, Once, On 03/24/24 at 1828, For 1 dose 1831 (Given - Provider: Angelique Morillo) sodium chloride [...] at 2050, 2nd Line Option: -ONLY give AK if patient is unable to take orally [...] at 2050, 2nd Line Option: -ONLY give AK if patient is unable to take orally and cannot receive IV/IM. -If inadequate response within 30 minutes, proceed to next-line agent or contact provider if no further options ordered. documented in this encounter Orders Medications Ordered That Adithya ht Not Have Been Administered Count Last Ordered Date First Ordered Date aspirin chewable tablet 324 mg 1 03/24/2024 azithromycin (ZITHROMAX) tablet 500 mg 1 cefTRIAXone (ROCEPHIN) 1 g i n sterile water 10 mL IV syringe 1 03/24/2024 doxycycline (VIBRAMYCIN) 100 mg in sodium chloride 0.9 % 100 mL IVPB 1 03/24/2024 ipratropium-albuteroL (DUONE B) 0.5-2.5 mg/3 mL nebulizer solution 3 mL 1 03/24/2024 ondansetron (PF) (ZOFRAN) injection 4 mg 1 03/24/2024 ondansetron ODT (ZOFRAN-ODT) disintegrating tablet 4 mg 1 03/24/2024 prochlorperazine (COMPAZINE) injection 10 mg 1 [...] documented as of this encounter Care Teams Supervisor [employer] Relationship Specialty Start Date End Date Donna Romero MD [address] [place] [address] PCP - General Internal Medicine 10/30/18 documented as of this encounter
--- OUTSIDE RECORDS SUMMARY | 2024-04-17 07:46 | XMS_ITS | Encounter Summary ---
Author Organization [facility] Address [address] [facility] [place] [address] Care Team Providers Care [place] Name Role Phone Donna Romero Md, MD Primary Care Provider Unavailable Donna Romero Md, MD Primary Care Provider Unavailable Mannie Morillo MD Unavailable Josep Givens PA-C Unavailable [phone] Reason for Visit * Reason Comments E-prescribe Rx Request Encounter Details Date Type Department Care Team Description 02/15/2020 Refill Pulmonology - [place] [address] [facility] [address] [place] [address] Ana Flaherty MD [address] [place] [phone] E-prescribe Rx Request Social History Tobacco Use [...] Exposure Response Date Recorded In the last month, have you been in contact with someone who was confirmed or suspected to have Coronavirus / COVID-19? Unable to assess 02/15/2020 7:37 AM EST documented as of this encounter Miscellaneous Notes * Telephone Encounter - Bernie Pandya - 02/15/2020 9:32 AM EST - [id number] Refill - Refill amount not specified in request documented in this encounter Plan of Treatment Not on file documented as of this encounter Visit Diagnoses Diagnosis Chronic obstructive pulmonary disease, unspecified COPD type (HCC) documented in this encounter Care Teams [place] Relationship Specialty Start Date End Date Donna Romero MD, MD PCP - General Internal Medicine 10/30/18 07/10/20 Donna Romero MD, MD PCP - General Internal Medicine 07/11/20 Mannie Morillo MD Specialist Lung Cancer Medical Billing Clerk 06/03/21 Josep Givens PA-C [address] [place] [phone] Specialist Thoracic Surgery 07/08/22 documented as of this encounter
--- OUTSIDE RECORDS SUMMARY | 2024-04-17 07:46 | XMS_ITS | Encounter Summary ---
Author Organization [facility] Address [address] [facility] [place] [address] Care Team Providers Care Technology Resource Teacher Name Role Phone Donna Romero Md, MD Primary Care Provider Unavailable Mannie Morillo MD Unavailable Josep Givens PA-C Unavailable [phone] Encounter Details Date Type Department Care Team Description 07/18/2023 Orders Only Medical Records [address] [place] [address] Mannie Morillo MD [address] [place] [id number] Social History Tobacco Use Types Packs/Day Years Used Date Smoking Tobacco: Former Cigarettes 0.5 Q uit: 05/11/2021 Smokeless Tobacco: Never Comments:Pt quit smoking one week. Alcohol Use Standard Drinks/Week Comments No 0 (1 standard drink = 0.6 oz pur e alcohol) Sex Assigned at Date Recorded Not on file Job Start Date Occupation Industry Not on file Not on file Not on file documented as of this encounter Plan of Treatment Not on file documented as of this encounter Procedures Procedure Name Priority Date/Time Associated Diagnosis Comments OUTSIDE CT Routine 07/14/2023 documented in this encounter Results * OUTSIDE CT (07/14/2023) Mannie Morillo MD RADIOLOGY documented in this encounter Visit Diagnoses Not on filedocumented in this encounter Care Teams Technology Resource Teacher Relationship Specialty Start Date End Date Donna Romero MD, MD PCP - General Internal Medicine 07/11/20 Mannie Morillo MD Specialist Lung Cancer Volcanologist 06/03/21 Josep Givens PA-C [address] [place] [phone] Specialist Thoracic Surgery 07/08/22 documented as of this encounter
--- OUTSIDE RECORDS SUMMARY | 2024-04-17 07:46 | XMS_ITS | Encounter Summary ---
Author Organization [facility] Address [address] [facility] [place] [address] Care Team Providers Care Decal Maker Name Role Phone Donna Romero Md, MD Primary Care Provider Unavailable Donna Romero Md, MD Primary Care Provider Unavailable Mannie Morillo MD Unavailable Josep Givens PA-C Unavailable [phone] Reason for Visit * Reason Comments E-prescribe Rx Request Encounter Details Date Type Department Care Team Description 02/02/2020 Refill Medical Records [address] [place] [address] Ana Flaherty MD [address] [place] [phone] E-prescribe Rx Request Social History Tobacco [...] encounter Miscellaneous Notes * Telephone Encounter - Maylin Apodaca - 02/11/2020 8:55 AM EST Patient called still waiting on trelegy Rx * Telephone Encounter - Maylin Apodaca - 02/06/2020 11:34 AM EST Patient would like script to be: E-PRESCRIBED/FAXED TO PHARMACY WHEN WAS THE PATIENT'S LAST APPOINTMENT WITH THE PRESCRIBING PROVIDER? 10/30/18 Does patient have an upcoming appointment? Yes 02/15/20 (THE MEDICATION REQUESTED IS ON THE MED LIST ABOVE) All of the medications requested were on the CURRENT MEDS list Did you check the Pharmacy information above?: YES Patient wants: 90 -day supply Is this a mail order prescription request ? NO Patients current insurance carrier is: [place] / [place] / Product Type: MEDICA[place] [id number] documented in this encounter Plan of Treatment Not on file documented as of this encounter Visit Diagnoses Not on filedocumented in this encounter Care Teams Decal Maker Relationship Specialty Start Date End Date Donna Romero MD, MD PCP - General Internal Medicine 10/30/18 07/10/20 Donna Romero MD, MD PCP - General Internal Medicine 07/11/20 Mannie Morillo MD Specialist Lung Cancer Shank Pinner 06/03/21 Josep Givens PA-C [address] [place] [phone] Specialist Thoracic Surgery 07/08/22 documented as of this encounter
--- OUTSIDE RECORDS SUMMARY | 2024-04-17 07:46 | XMS_ITS | Encounter Summary ---
Author Organization [facility] Address [address] [facility] [place] [address] Care Team Providers Care Passenger Service Manager Name Role Phone Donna Romero Md, MD Primary Care Provider Unavailable Donna Romero Md, MD Primary Care Provider Unavailable Mannie Morillo MD Unavailable Josep Givens PA-C Unavailable [phone] Reason for Visit * Reason Onset Date Comments Faxed Order 02/19/2020 Encounter Details Date Type Department Care Team Description 02/19/2020 Telephone Internal Medicine - [address], [address] [place] [address] Donna Romero MD, MD Faxed Order Social History Tobacco Use Types Packs/Day Years [...] encounter Miscellaneous Notes * Telephone Encounter - Dilia Rashid - 02/19/2020 12:16 PM EST Received form for albuterol. Please sign, date and return per medicare requirements. documented in this encounter Plan of Treatment Not on file documented as of this encounter Visit Diagnoses Not on filedocumented in this encounter Care Teams Passenger Service Manager Relationship Specialty Start Date End Date Donna Romero MD, MD PCP - General Internal Medicine 10/30/18 07/10/20 Donna Romero MD, PCP - General Internal Medicine 07/11/20 Mannie Morillo MD Specialist Lung Cancer Aerobics Instructor 06/03/21 Josep Givens PA-C [address] [place] [phone] Specialist Thoracic Surgery 07/08/22 documented as of this encounter
--- OUTSIDE RECORDS SUMMARY | 2024-04-17 07:46 | XMS_ITS | Encounter Summary ---
Author Organization [facility] Address [address] [facility] [place] [address] Care Team Providers Care Director Maternal Child Name Role Phone Donna Romero Md, MD Primary Care Provider Unavailable Mannie oMrillo MD Unavailable Josep Givens PA-C Unavailable [phone] Reason for Visit * Reason Comments E-prescribe Rx Request Encounter Details Date Type Department Care Team Description 10/15/2022 Refill Pulmonology - [place] 175 [facility] [address] [place] [phone] Ana Flaherty MD [address] [place] [phone] E-prescribe Rx Request Social History Tobacco Use [...] encounter Miscellaneous Notes * Telephone Encounter - Barbie Anthony - 10/15/2022 3:13 PM EDT NATHALY 09/07/22 NOV 03/11/23 documented in this encounter Plan of Treatment Not on file documented as of this encounter Visit Diagnoses Diagnosis Chronic obstructive pulmonary disease, unspecified COPD type (HCC) documented in this encounter Care Teams Director Maternal Child Relationship Specialty Start Date End Date Donna Romero MD, MD PCP - General Internal Medicine 07/11/20 Mannie Morillo MD Specialist Lung Cancer Licensed Esthetician 06/03/21 Josep Givens PA-C [address] [place] [phone] Specialist Thoracic Surgery 07/08/22 documented as of this encounter
--- OUTSIDE RECORDS SUMMARY | 2024-04-17 07:46 | XMS_ITS | Encounter Summary ---
Author Organization [facility] Address [address] [facility] [place] [address] Care Team Providers Care Program Therapist Name Role Phone Jorge Barth Primary Care Provider UnavailDonna Orlando Md, MD Primary Care Provider Unavailable Donna Romero Md, MD Primary Care Provider Unavailable Mannie Morillo MD Unavailable Josep Givens PA-C Unavailable [phone] Encounter Details Date Type Department Care Team Description 05/10/2017 Transfer Records Medical Records [address] [place] [id number] Abstract, Provider Social History Tobacco Use Types Packs/Day Years Used Date Smoking Tobacco: Every Day Cigarettes 0.5 Alcohol Use Standard Drinks/Week Comments No 0 [...] on filedocumented in this encounter Care Teams Program Therapist Relationship Specialty Start Date End Date Jorge Barth PCP - General 03/19/08 10/29/18 Donna Romero MD, MD PCP - General Internal Medicine 10/30/18 07/10/20 Donna Romero MD, MD PCP - General Internal Medicine 07/11/20 Mannie Morillo MD Specialist Lung Cancer Commodity Loan Clerk 06/03/21 Josep Givens PA-C [address] [place] [phone] Specialist Thoracic Surgery 07/08/22 documented as of this encounter
--- OUTSIDE RECORDS SUMMARY | 2024-04-17 07:46 | XMS_ITS | Encounter Summary ---
Author Organization [facility] Address [address] [facility] [place] [address] Care Team Providers Care Unit Support Representative Name Role Phone Donna Romero Md, MD Primary Care Provider Unavailable Donna Romero Md, MD Primary Care Provider Unavailable Mannie Morillo MD Unavailable Josep Givens PA-C Unavailable [phone] Encounter Details Date Type Department Care Team Description 04/21/2020 Rail Transit Operator Report Medical Records [address] [place] [address] [place] PA-C [address] [phone] Social History Tobacco Use Types Packs/Day Years [...] on filedocumented in this encounter Care Teams Unit Support Representative Relationship Specialty Start Date End Date Donna Romero MD, MD PCP - General Internal Medicine 10/30/18 07/10/20 Donna Romero MD, PCP - General Internal Medicine 07/11/20 Mannie Morillo MD Specialist Lung Cancer Tape Edge Machine Operator 06/03/21 Josep Givens PA-C [address] [place] [phone] Specialist Thoracic Surgery 07/08/22 documented as of this encounter
--- OUTSIDE RECORDS SUMMARY | 2024-04-17 07:46 | XMS_ITS | Encounter Summary ---
Author Organization [facility] Address [address] [facility] [place] [address] Care Team Providers Care Demonstrator Electric [employer] Appliances Name Role Phone Donna Romero Md, MD Primary Care Provider Unavailable Mannie Morillo MD Unavailable Josep Givens PA-C Unavailable [phone] Reason for Visit * Reason Comments E-prescribe Rx Request Encounter Details Date Type Department Care Team Description 09/26/2023 Refill Pulmonology - [place] [address] [facility] [address] [place] [phone] Ana Flaherty MD [address] [place] [phone] E-prescribe Rx Request Social History Tobacco Use Types Packs/Day Years Used Date Smoking Tobacco: Some Days Cigarettes 0.5 Last attempted to quit: 05/11/2021 Smokeless Tobacco: Never Comments:Pt quit smoking one week. Alcohol Use Standard Drinks/Week Comments No 0 (1 standard drink = 0.6 oz pur e alcohol) Sex Assigned at Date Recorded Not on file Job Start Date Occupation Industry Not on file Not on file Not on file documented as of this encounter Miscellaneous Notes * Telephone Encounter - Chad Garland - 09/27/2023 8:23 AM EDT Vanda: 04/08/2023 Nov: 10/14/2023 Possible duplicate documented in this encounter Plan of Treatment Not on file documented as of this encounter Visit Diagnoses Diagnosis Chronic obstructive pulmonary disease, unspecified COPD type (HCC) documented in this encounter Care Teams Demonstrator Electric [employer] Appliances Relationship Specialty Start Date End Date Donna Romero MD, MD PCP - General Internal Medicine 07/11/20 Mannie Morillo MD Specialist Lung Cancer Sales Development Consultant 06/03/21 Josep Givens PA-C [address] [place] [phone] Specialist Thoracic Surgery 07/08/22 documented as of this encounter
--- OUTSIDE RECORDS SUMMARY | 2024-04-17 07:46 | XMS_ITS | Encounter Summary ---
Author Organization [facility] Address [address] [place] [address] Care Team Providers Care Dyed Yarn Operator Name Role Phone oDnna Romero MD Primary Care Provider [phone] Reason for Referral * Therapy (Routine) - Authorized Specialty Diagnoses / Procedures Referred By Contac t Referred To Contact Pulmonology Diagnoses Chronic obstructive pulmonary disease, unspecified COPD type ([facility]) Procedures Pulmonary function testing: Spirometry with Bronchodilator, Carbon Monoxide Diffusing Capacity Ana Flaherty MD [address] [address] Phone: tel: [facility]: [facility] [address] [address] Phone: tel: fax: Referral ID Status Reason Start Date Expiration Date V isits Requested Visits Authorized [id number] Authorized 04/12/2024 04/12/2025 1 1 Reason for Visit * Reason Comments COPD Pneumonia Encounter Details Date Type Department Care Team ([facility] st Contact Info) Description 04/12/2024 8:30 AM EST [facility] [address] [phone] Ana Flaherty MD [address] [address] Chronic obstructive pulmonary disease, unspecified COPD type [...] for your loved ones. For example, child nutrition assistant or elderly care for an older adult? [...] each 11 04/12/2024 documented in this encounter Progress Notes * Ana Flaherty MD - 04/12/2024 8:30 AM EST ADULT PULMONARY CONSULT CHIEF COMPLAINT or REASON FOR CONSULTATION: COPD and Pneumonia Carlota Zelaya is a 68 y.o. years old, female with a history of COPD. History of Present Illness The patient presents for evaluation of chronic obstructive pulmonary disease, hiatal hernia, and hypotension. She stop smoking 3 months ago. She was hospitalized due to respiratory distress, initially attributed to a common cold or influenza, but later diagnosed as pneumonia. Her second hospitalization was prompted by the onset of influenza- like symptoms. She is currently on Trelegy 100 daily and albuterol4 times daily. She uses supplemental oxygen at night and occasionally during the day. She reports no productive cough. She has had 2 episodes of respiratory distress in the past 2 to 3 years. She hadlobectomy for lung cancer surgery in 2021 and did not recive post op radiation and chemotherapy. She reports occasional acid reflux, which is managed with omeprazole taken in the morning. She doesnot experience constant heartburn and can eat without triggering it. SOCIAL HISTORY The patient stopped smoking 3 months ago. MEDICATIONS Trelegy, albuterol, Mucinex, omeprazole ALLERGIES: No Known Allergies ACTIVE MEDICATIONS: Outpatient Medications Marked as Taking for the 04/12/24 encounter (Office Visit) with Ana Flaherty MD Medication Sig Dispense Refill atorvastatin (LIPITOR) 10 mg tablet Take 1 tablet (10 mg total) by mouth at bedtime. azithromycin (ZITHROMAX) 250 mg tablet Take 1 tablet (250 mg total) by mouth 1 (one) time each day for 6 doses. 6 each 0 guaiFENesin (MUCINEX) 600 mg 12 hr tablet Take 1 tablet (600 mg total) by mouth every 12 (twelve) hours for 10 days. Do not crush, chew, or split. 20 each 0 magnesium oxide (MAG-OX) 400 mg (241.3 elemental magnesium) tablet Take 1 tablet (400 mg total) by mouth 2 (two) times a day. 60 each 0 midodrine (PROAMATINE) 5 mg tablet Take 1 tablet (5 mg total) by mouth 3 (three) times a day beforemeals. 90 each 0 nabumetone (RELAFEN) 500 mg tablet Take 1 tablet (500 mg total) by mouth 2 (two) times a day. omeprazole (PriLOSEC) [address] capsule Take 1 capsule (20 mg total) by mouth 1 (one) time each day. Oxygen Therapy (O2) gas Inhale into the lungs. Oxygen Historical (HISTORICAL OXYGEN) predniSONE (DELTASONE) 20 mg tablet Take 2 tablets (40 mg total) by mouth 1 (one) time each day for3 days, THEN 1.5 tablets (30 mg total) 1 (one) time each day for 3 days, THEN 1 tablet (20 mg total) 1 (one) time each day for 3 days, THEN 0.5 tablets (10 mg total) 1 (one) time each day for 3 days.15 each 0 romosozumab-aqqg (Evenity) Inject 2.34 mL (210 mg total) under the skin every 30 (thirty) days. [DISCONTINUED] wafuxryodjv-zulxzmsxynrf-bbsgedfdpc (Trelegy Ellipta) 100-62.5-25 mcg inhaler Inhale1 puff (100 mcg total) by mouth 1 (one) time each day. PROVIDER ATTESTS THAT THE MEDICATION LIST WAS OBTAINED, REVIEWED AND UPDATED. REVIEW OF SYSTEMS: GENERAL: No wt lost or fever ENT: +snoring Eye: RESPIRATORY: + cough, wheezing and dyspnea CARDIOVASCULAR: No chest pain, leg swelling or palpitations GI: No abdominal discomfort, MUSCULOSKELETAL: +backpain HEMATOLOGY/LYMPHOLOGY No prolonged bleeding, easy bruisability ENDOCRINE: no DM NEURO: No focal weakness : Psych: no depression PAST MEDICAL HISTORY: Patient Active Problem List Diagnosis Date Noted Weakness generalized 04/05/2024 Hypotension 04/04/2024 Multifocal pneumonia 03/24/2024 Hiatal hernia 12/15/2021 Ventral hernia without obstruction or gangrene 03/24/2018 Depression 04/24/2017 Nocturnal hypoxia 04/24/2017 COPD exacerbation (CMS/HCC) 11/01/2016 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 Past Surgical History: Procedure Laterality Date OTHER SURGICAL HISTORY PROCEDURE: CT RMVL LUNG OTH/THN PNUMEC RESXN-PLCTJ EMPHY LUNG OTHER SURGICAL HISTORY Right 06/03/2020 PROCEDURE: CT RESCJ&BRONCHOPLASTY PFRMD TM LOBEC/SGMECTOMY; COMMENT: RUL Wedge w/ completetion RUL lobectomy FAMILY HISTORY: Family History Problem Relation Name Age of Onset Liver disease Mother Liver Cirrosis Throat cancer Father Hypertension Brother Hypertension Daughter Other (Other: other) Daughter Breast Mass OCCUPATION OR OCCUPATION EXPOSURE: SOCIAL HISTORY Social History Socioeconomic History Marital status: Spouse name: Not on file Number of children: Not on file Years of education: Not on file Highest education level: Not on file Occupational History Not on file Tobacco Use Smoking status: Some Days Current packs/day: 0.00 Types: Cigarettes Last attempt to quit: 05/11/2021 Years since quittin.9 Smokeless tobacco: Never Substance and Sexual Activity Alcohol use: No Drug use: No Sexual activity: Not on file Other Topics Concern Not on file Social History Narrative Not on file IMMUNIZATION: Immunization History Administered Date(s) Administered Pfizer (ages 12 & older) SARS-CoV-2 COVID-19, mRNA, LNP-S, abiel-sucrose, preservative free 05/15/2021 Pfizer SARS-CoV-2 COVID-19, mRNA, LNP-S, preservative free 04/26/2020, 05/17/2020, 11/15/2020 PHYSICAL EXAM: Visit Vitals BP (!) 96/46 (BP Location: Left arm, Patient Position: Sitting, BP Cuff Size: Adult long) Pulse 77 Resp 16 Ht 1.499 m (59 ) Wt (!) 39.8 kg (87 lb 12.8 oz) SpO2 96% BMI 17.73 kg/m?? Smoking Status Some Days BSA 1.3 m?? APPEARANCE: Alert and in no acute distress. Thin EYES: Conjunctiva and sclera normal. NOSE/SINUS: Nares normal. Septum midline. Mucosa MOUTH/THROAT: no erythema or exudates. Mallampati class 2 NECK: Neck supple, thyroid symmetric and of normal size. HEART: RRR with normal S1 and S2, no murmurs, no gallops LUNG: CTA b/l, no wheezing or bronchial bs, diminished breath sounds ABDOMEN: Bowel sounds normoactive, soft, non-tender EXTREMITIES: no clubbing, cyanosis, or edema. NEURO: Awake, alert and oriented x 3, no focalization. DIAGNOSTIC DATA: SURGICAL PATHOLOGY REPORT Name: CARLOTA ZELAYA Sex: F Service Date: 06/03/20 A-K. RIGHT UPPER LOBE, LUNG (WEDGE RESECTION AND COMPLETION LOBECTOMY) AND LYMPH NODE BIOPSIES: PRIMARY TUMOR: SQUAMOUS CELL CARCINOMA. -TUMOR SIZE: 0.9 x 0.9 x 0.8 CM. -HISTOLOGIC GRADE: -AJCC SYSTEM (BASED ON EXTENT TO WHICH TUMOR RESEMBLES NORMAL TISSUE): - MODERATELY DIFFERENTIATED (GRADE II/IV). CARDIOPULMONARY TEST: Last Pulmonary function Test showed: DATE OF SERVICE: 05/05/2020 This patient had a spirometry. The forced vital capacity is 101% of predicted. FEV1% is 56% and the flow rates are decreased. No change after bronchodilators. LUNG VOLUMES: RV/TLC ratio is 44%. There is increased residual volume. The diffusing capacity adjusted to the VA is 93% of predicted. IMPRESSION: There is moderate degree of airflow obstruction with no change after bronchodilators. There is increased residual volume. RADIOLOGIST IMAGIN04/04/24 FINDINGS: LUNGS/PLEURA: Central airways are patent. Right [...] Scattered degenerative changes seen throughout the bones. IMPRESSION: No pulmonary arterial emboli. No acute findings in the chest. Improved infectious or inflammatory bronchitis and bronchiolitis. Small hiatal hernia with circumferential thickening of the esophagus. Correlate for reflux esophagitis. Endoscopy could evaluate further. Unchanged scattered pulmonary nodules and emphysema. Recommend enrolling in annual lung cancer screening chest CT program. ASSESSMENT: ICD-10-CM ICD-9-CM 1. Chronic obstructive pulmonary disease, unspecified COPD type (CMS/[facility]) J44.9 496 Pulmonary function testing: Spirometry with Bronchodilator, Carbon Monoxide Diffusing Capacity 2. Hypoxemia R09.02 799.02 PLAN: Assessment & Plan 1. Chronic Obstructive Pulmonary Disease (COPD). The most recent CT scan does not indicate any suspicious findings for recurrent cancer. There is nosignificant evidence of pneumonia on the CT scan. Nasal swab cultures have returned negative results, and the sputum culture did not yield substantial growth. The dosage of Trelegy will be increased from 100 mcg to 200 mcg. Daliresp is associated with wt lost and I will not recommend it. I will repeat a PFT Follow-up The patient will follow up in 3 months. PROCEDURE The patient underwent lung cancer surgery in 2021. - Follow up with Donna Romero MD for the other co-morbilities. - I spend 32 Minutes on this visit. The patient was educated about his problems, where assessment and plan was reviewed and explained, All questions were answered. RETURN TO THE NEXT VISIT: Based on physical exam, symptomatology, tests requested and baseline pulmonary evaluation/disease, I instructed the patient to come back to see me in 6 mts for reevaluation after the test has been done or earlier if the patient needed. Thanks Donna Romero MD for allowing me to have the opportunity to assist in the care of this patient. I have obtained verbal consent from Carlota Zelaya prior to the recording. I have advised Carlota Zelaya that she may refuse the recording and require the recording to be turned off at any time during this encounter. documented in this encounter Plan of Treatment Upcoming Encounters Date Type Department Care Team (Late st Contact Info) Description 07/09/2024 10:30 AM EDT Appointment [facility] CT Scan [address] [place] [phone] 07/19/2024 9:00 AM EDT Ancillary Procedure Pulmonol - [place] [address] [phone] Adarsh Henriquez 07/19/2024 10:00 AM EDT [facility] [address] [phone] Ana Flaherty MD [address] [address] Scheduled Orders Name Type Priority Associated Diagnoses Orde r Schedule Pulmonary function testing: Spirometry with Bronchodilator, Carbon Monoxide Diffusing Capacity PFT Routine Chronic obstructive pulmonary disease, unspecified COPD type ([facility]/HCC) 1 Occurrences starting 04/12/2024 until 04/12/2025 documented [...] documented as of this encounter Care Teams Dyed Yarn Operator Relationship Specialty Start Date End Date Donna Romero MD [address] [place] [address] PCP - General Internal Medicine 10/30/18 documented as of this encounter
--- OUTSIDE RECORDS SUMMARY | 2024-04-17 07:46 | XMS_ITS | Encounter Summary ---
Author Organization [facility] Address [address] [facility] [place] [address] Care Team Providers Care It Associate Name Role Phone Donna Romero Md, MD Primary Care Provider Unavailable Mannie Morillo MD Unavailable Josep Givens PA-C Unavailable [phone] Reason for Visit * Reason Comments E-prescribe Rx Request Encounter Details Date Type Department Care Team Description 09/23/2023 Refill Pulmonology - [place] 175 [facility] [address] [place] [phone] Ana Flaherty MD [address] [place] [phone] E-prescribe Rx Request Social History Tobacco Use [...] * Telephone Encounter - Chad Garland - 09/23/2023 11:13 AM EDT Vanda: 04/08/2023 Nov: 10/14/2023 documented in this encounter Plan of Treatment Not on file documented as of this encounter Visit Diagnoses Diagnosis Chronic obstructive pulmonary disease, unspecified COPD type (HCC) documented in this encounter Care Teams It Associate Relationship Specialty Start Date End Date Donna Romero MD, MD PCP - General Internal Medicine 07/11/20 Mannie Morillo MD Specialist Lung Cancer Wire Twisting Machine Operator 06/03/21 Josep Givens PA-C [address] [place] [phone] Specialist Thoracic Surgery 07/08/22 documented as of this encounter
--- OUTSIDE RECORDS SUMMARY | 2024-04-17 07:46 | XMS_ITS | Clinical Summary ---
Author Organization [facility] Address [address] [facility] [place] [address] Care Team Providers Care Instructor Industrial Design Name Role Phone Donna Romero Md, MD Primary Care Provider Unavailable Mannie Morillo MD Unavailable Josep Givens PA-C Unavailable [phone] Allergies Active Allergy Reactions Severity Noted Date Comments No Known Drug Allergies 07/13/2016 Medications Medication Sig Dispensed Refills Start Date End Date Status atorvastatin (LIPITOR) 20 MG tablet Take 20 mg by mouth daily. 0 Active Oxygen Historical (HISTORICAL OXYGEN) Inhale into the lungs. 0 Active pramipexole (MIRAPEX) 0.25 MG tablet Take 0.25 mg by mouth 3 times daily. 0 Active paroxetine (PAXIL) 40 MG tablet Take 40 mg by mouth every morning. 0 Active albuterol (PROVENTIL) (2.5 MG/3ML) 0.083% nebulizer solutionIndication s:Chronic obstructive pulmonary disease, unspecified COPD type (HCC) Take 1 Vial by nebulization every 4 hours as needed for Shortness of Breath for up to 30 days. 360 mL 1 10/17/2020 Active meloxicam (MOBIC) 15 MG tablet Take 1 Tablet by mouth daily. 0 Active omeprazole (PRILOSEC) 20 MG capsule TAKE ONE CAPSULE BY MOUTH EVERY MORNING ON AN EMPTY STOMACH; WAIT 30 MINUTES AND THEN EAT TO ACTIVATE MEDICATION 30 Capsule 11 09/23/2023 Active Ventolin HFA 108 (90 Base) MCG/ACT Aero SolnIndications:Ch ronic obstructive pulmonary disease, unspecified COPD type (HCC) INHALE 2 PUFFS INTO THE LUNGS FOUR TIMES DAILY NEEDED FOR WHEEZING OR SHORTNESS OF BREATH 18 g 1 09/26/2023 Active Fluticasone-Umecli din-Vilant 100-62.5-25 MCG/ACT AEROSOL POWDER,BREATH ACTIVATEDIndicatio ns:Chronic obstructive pulmonary disease, unspecified COPD type (HCC) Inhale into the lungs. 0 Active nabumetone (RELAFEN) 500 MG tabletIndications: Chronic obstructive pulmonary disease, unspecified COPD type (HCC) Take 1 Tablet by mouth 2 times daily. 0 Active Varenicline Tartrate, Starter, (Chantix Starting Month ) 0.5 MG X 11 & 1 MG X 42 Tablet Therapy PackIndications:Ch ronic obstructive pulmonary disease, unspecified COPD type (HCC) Take 1 Packet by mouth See Admin Instructions for 30 days. 1 Each 0 10/14/2023 Active Active Problems Problem Noted Date Hiatal hernia 12/15/2021 Last Assessment & Plan: CT demonstates small hiatal hernia and patient is symptomatic. She is not medically managed at this time and once optimized and her symptoms continue, can consider surgical treatment. Prescribe Omperazole 20 mg daily and refer to GI for evaluation. History of lung cancer 06/15/2021 Last Assessment & Plan: May 2020 underwent a robotic right upper lobectomy for stage Ia squamous cell carcinoma and who is also being followed for an anterior mediastinal mass. ?? While patient was in office we reviewed her most recent chest CT scan which was performed at [facility] In July of 2023 shows Continued enlargement of lobulated cystic lesion in the lateral superior segment of the right lower lobe with mild circumferential mural thickening of the cyst without nodularity. There are several groundglass nodules which persist with 1 in the posterior left lower lobe which appears minimally larger. While patient was in office we discussed these chest CT findings and patient was informed that while her groundglass nodules in her left lung [place] may in fact be a smoldering or slow-growing carcinoma versus inflammation there is no solid nodularity appearance to them at this point which is reassuring and that we will continue to monitor them with chest CT scans as well as the lobulated cystic lesion in the right lower lobe. Unchanged anterior mediastinal cyst. Her next chest CT scan will be due in 12 months time which will be July 2024 and have a visit at the thoracic surgical department thereafter to discuss results. 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 Ramírez is [...] a repeat CT scan in 6 months. Tobacco user 11/01/2016 Family History Medical History Relation Name Comments Hypertension Brother Hypertension Daughter other Daughter Breast Mass Throat Cancer Father Liver Disease Mother Liver Cirrosis Relation Name Status Comments Brother Daughter Alive Father Mother Social History Tobacco Use Types Packs/Day Years Used Date Smoking Tobacco: Some Days Cigarettes 0.5 Last attempted to quit: 05/11/2021 Smokeless Tobacco: Never Tobacco Cessation:Ready to Q uit: Not Asked; Counseling Given: Not Answered Comments:4 cigs weekly. Alcohol Use Standard Drinks/Week Comments No 0 (1 standard drink = 0.6 oz pur e alcohol) Sex Assigned at Date Recorded Not on file Job Start Date Occupation Industry Not on file Not on file Not on file Last Filed Vital Signs Vital Sign Reading Time Taken Comments Blood Pressure 100/66 10/14/2023 8:56 AM EDT Pulse 66 10/14/2023 8:56 AM EDT Temperature 36.3 ??C (97.3 ??F) 10/14/2023 8:56 AM ED T Respiratory Rate 16 10/14/2023 8:56 AM EDT Oxygen Saturation 98% 10/14/2023 8:56 AM EDT Inhaled Oxygen Concentration - - Weight 38.7 kg (85 lb 6.4 oz) 10/14/2023 8:56 AM EDT Height 149.9 cm (4' 11 ) 10/14/2023 8:56 AM EDT Body Mass Index 17.25 10/14/2023 8:56 AM EDT Plan of Treatment Health Maintenance Due Date Last Done Comments Covid-19 Vaccine (#1) 03/09/1956 DEPRESSION SCREEN 1966 HEPATITIS C SCREENING 1972 DTAP/TDAP/TD (1 - Tdap) 1973 CHOLESTEROL SCREENING 1974 MAMMOGRAM 1994 COLON CANCER SCREENING 2004 SHINGLES VACCINE (2 of 3) 11/20/2014 09/25/2014 BONE DENSITY SCREENING 09/07/2019 FALL RISK ASSESSMENT 09/07/2019 PNEUMOCOCCAL VACCINE (2 - PPSV23 or PCV20) 09/16/2021 09/16/2020 INFLUENZA (#1) 2023 10/31/2014 BMI CHECK/ADVISE 02/08/2024 Care Teams Instructor Industrial Design Relationship Specialty Start Date End Date Donna Romero MD, MD PCP - General Internal Medicine 07/11/20 Mannie Morillo MD Specialist Lung Cancer Glass Installer Technician 06/03/21 Josep Givens PA-C [address] [place] [phone] Specialist Thoracic Surgery 07/08/22
[2024-04-17 10:25] LABS: MANUAL DIFF FLAG NO
[2024-04-17 10:28] LABS: Basophils Absolute Auto 0.1 X10*3/uL (0.0-0.2); Basophils Percent Auto 0.4 % (0-2); Eosinophils Absolute Auto 0.1 X10*3/uL (0.0-0.4); Eosinophils Percent Auto 0.8 % (0-4); Hematocrit 40.7 % (37.0-47.0); Hemoglobin 12.7 g/dl (12.0-16.0); Imm Gran Abs Auto 0.16 X10*3/uL (0.00-0.03); Imm Gran Pct Auto 1.3 % (0.0-0.4); Lymphocytes Absolute Auto 1.8 X10*3/uL (1.2-4.9); Mean Corpuscular HGB Conc 31.2 g/dl (31.0-35.0); Mean Corpuscular Hemoglobin 30.2 pg (27.0-33.0); Mean Corpuscular Volume 96.9 fL (80.0-98.0); Monocytes Absolute Auto 0.8 X10*3/uL (0.1-1.2); Monocytes Percent Auto 6.5 % (2-11); Neutrophils Absolute Auto 9.2 x10*3/uL (2.0-8.3); Platelet Count 326 X10*3/uL (160-400); Red Cell Distribution Width 15.4 % (11.0-16.0); White Blood Count 12.1 X10*3/uL (4.8-10.8)
[2024-04-17 10:40] LABS: Alanine Aminotransferase 42 U/L (0-31); Aspartate Amino Transferase 32 U/L (5-31); Cholesterol 201 mg/dL (<200); HDL Cholesterol 89 mg/dL (>40); LDL Cholesterol Calculated 90 mg/dL (<100); Magnesium 1.8 mg/dL (1.6-2.6); Triglycerides 111 mg/dL (<150)
== END 2024-04-17 07:43 | disposition home or self-care (01) ==
LOC: HO.HMGCLDS 07:42
PROVIDERS: PCP Internal Medicine; Visit Provider Internal Medicine
DX: E83.42 Hypomagnesemia (principal); R53.1 Weakness; I95.9 Hypotension, unspecified; E78.5 Hyperlipidemia, unspecified
CPT/HCPCS: 36415; 80061; 83735; 84450; 84460; 85025

== ENCOUNTER → 2024-04-19 13:22 | Outpatient (BNVA) | payer MEDICAID, SELFPAY | PROVIDERS: PCP Internal Medicine; Visit Provider Internal Medicine | DX: I95.9 Hypotension, unspecified (principal) | CPT/HCPCS: 99212 ==

== ENCOUNTER → 2024-04-19 13:22 | Outpatient (AMB) | payer MEDICAID, SELFPAY ==
[2024-04-19 13:27] VITALS: BP 90/62; PULSE 68; RESP 16; TEMP 36.7; O2SAT 97; BMI 19.0
--- NOTE | 2024-04-19 13:27 | A.OFFPC_ITS ---
Vital Signs 04/19/24 13:27 Height 4 ft 11 in Weight 94 lb BMI 19.0 BP 90/62 Blood Pressure Location Lt brachial Position Sitting Respiration 16 Pulse 68 Pulse Source Pulse Oximeter Temp 98.1 F Temp Source Oral Pulse Oximetry (%) 97 Oxygen Delivery Method Room Air Intake Visit Reasons: HDF/Do not add Medicare as it is only Part A Intake Note: Pt is here today [facility] Allergies No Known Allergies Allergy (Verified 04/23/24 23:22) Medication List - Last Reconciled 04/19/24 by Donna Romero MD albuterol sulfate 90 mcg/actuation inhalation albuterol sulfate 90 mcg/actuation (Ventolin HFA) 2 puffs inhalation Q6H PRN atorvastatin 10 mg PO DAILY cholecalciferol (vitamin D3) 25 mcg PO DAILY dqdtufnandq-swnsxgqki-sdqymwun 200-62.5-25 mcg (Trelegy Ellipta) 1 inh inhalation DAILY magnesium oxide 400 mg PO BID midodrine 5 mg PO TID nabumetone 500 mg PO BID PRN omeprazole 20 mg PO DAILY Oxygen Home Use As directed romosozumab-aqqg (Evenity) 210 mg (2.34 mL) subcut .qmonth Tobacco use date assessed: 04/19/24 Fall risk assessment: No Falls in past year Last assessed Fall Risk: 04/19/24 Dental Screening Dental Screen Date: 12/08/23 HPI HDF/Do not add Medicare as it is only Part A HPI Details 68-year-old lady with history of COPD on 2 L home oxygen, former smoker, quit a month prior to admission, history of lung cancer status post right upper lobectomy, GERD, depression, hyperlipidemia, osteoporosis, who is here for a TCM visit. She was recently admitted at [facility] 03/24- for COPD exacerbation and multifocal pneumonia patient , and was then discharged, only to return again to the ER complaining of shortness of breath, increased nonproductive cough, generalized weakness worse after she finished her prednisone taper. She was then admitted for hypotension and COPD exacerbation. She was then placed on azithromycin and prednisone taper again, continued on albuterol inhaler and Trelegy and scheduled to follow-up with her ammonia worker after discharge. A CT of the chest did not show any acute findings or pneumonia, and CTA of chest did not show presence of pulmonary emboli During her stay at hospital she was noted to be hypotensive and was started on midodrine. At present patient states that she is still having generalized weakness, but is improving. Still having intermittent episodes of weakness and low blood pressure readings even at home. Lowest blood pressure readings at home was 80/50. Labs during recent admission showed normal electrolytes, renal function and creatinine level, normal fasting glucose and electrolytes, no anemia or elevation in white blood cell count observed. [facility] Medical History Hypotension Hypomagnesemia History of adenomatous polyp of colon Chronic right shoulder pain Hiatal hernia Colon cancer screening Generalized anxiety disorder Polyarthralgia Leg cramps Vitamin D deficiency Squamous cell carcinoma Osteoporosis Restless leg syndrome COPD (chronic obstructive pulmonary disease) Impaired fasting glucose Fall Dyslipidemia Essential hypertension Surgical History Hx of colonoscopy S/P partial lobectomy of lung History of fusion of cervical spine History of hernia repair Family History Father Esophageal cancer Mother Cirrhosis HTN (hypertension) Diabetes mellitus Liver problem Brother Mental health disorder Daughter No problems noted. Social History Housing: House Alcohol intake: never Patient Tobacco Use Status: Former Tobacco user Cigarettes Per Day: 1 Years Smoked: 50 e-Cigarette/Vaping Use: Never Used service: No Current occupational status: disabled Current occupation: right hand dominant Cognitive needs: No Hearing needs: No Vision needs: No Questionnaire PHQ-9 Over the last 2 weeks, how often have you been bothered by any of the following problems? 1. Little interest or pleasure in doing things: several days 2. Feeling down, depressed, or hopeless: not at all 3. Trouble falling or staying asleep, or sleeping too much: several days 4. Feeling tired or having little energy: several days 5. Poor appetite or overeating: several days 6. Feeling bad about yourself - or that you are a failure or have let yourself or your family down: several days 7. Trouble concentrating on things, such as reading the newspaper or watching television: not at all 8. Moving or speaking so slowly that other people could have noticed. Or the opposite - being so fidgety or restless that you have been moving around a lot more than usual: not at all 9. Thoughts that you would be better off or of hurting yourself in some way: several days Total score: 6 Depression Screening Interpretation: Negative Depression Screening Done: Yes Source: Developed by Drs. Alexi Yadav, Brenda Barahona, Alonzo Smiley and colleagues, with an educational livia from [employer]. Thrive Questionnaire Date Thrive assessed: 12/08/23 I am a: Patient What is your living situation today?: I have a steady place to live Within the past 12 months, did the food you bought not last and you didn't have the money to get more?: Never true Within the past 12 months, did you worry whether your food would run out before you got money to buy more?: Never true Do you have trouble paying for medicines?: No Do you have trouble getting transportation to medical appointments?: No Do you have trouble paying your heating and electricity bill?: No Do you have trouble taking care of your child, family member or friend?: No Do you have trouble with day-to-day activities such as bathing, preparing meals, shopping, managing finances, etc.?: No Are you currently unemployed and looking for a job?: No Are you interested in more education?: No Please select the resources that you would like help with: None Currently or been in a relationship where the following occur: No concerns reported THRIVE Score: 0 AUDIT C Alcohol Use Questionnaire (AUDIT-C) 1. How often do you have a drink containing alcohol?: Never Total Score: 0 JENAE-7 AMB Questionnaire JENAE-7 Date JENAE - 7 assessed: 03/21/23 Feeling nervous, anxious, or on edge: 0 = Not at all Not being able to stop or control worryin = Not at all Worrying too much about different things: 0 = Not at all Trouble relaxin = Not at all Being so restless that it is hard to sit still: 0 = Not at all Becoming easily annoyed or irritable: 0 = Not at all Feeling afraid as if something awful might happen: 0 = Not at all Total JENAE-7 score (0-4 normal; 5-9 mild; 10-14 moderate; 15-21 severe): 0 Source: Developed by Drs. Alexi Yadav, Brenda Barahona, Alonzo Smiley and colleagues, with an educational livia from [employer]. Review of Systems Const Denies anorexia, Denies body aches, Denies chills, Reports difficulty sleeping (Occasional), Reports fatigue, Denies fever(s), Denies frequent falls, Reports headache(s) and Denies malaise Eyes Reports no additional complaints ENT Denies change in voice, Denies dysphagia, Reports headache(s) and Denies hoarseness Card Denies chest pain, Denies irregular heart rhythm and Denies dyspnea Resp Denies cough and Denies dyspnea GI Denies abdominal pain, Denies change in bowel habits, Denies dysphagia, Denies diarrhea and Denies nausea Musc Denies myalgias, Denies muscle cramps, Denies numbness, Reports stiffness and Denies tingling Neuro Denies frequent falls, Reports headache(s), Denies numbness and Denies tingling Psych Reports no additional complaints Endo Reports fatigue Carlin/Lymph Reports no additional complaints Physical exam (Primary Care) Vital Signs: Last Vital Signs Temp 98.1 F 04/19/24 13:27 Pulse 68 04/19/24 13:27 Resp 16 04/19/24 13:27 BP 90/62 04/19/24 13:27 Pulse Ox 97 04/19/24 13:27 Oxygen Delivery Method Room Air 04/19/24 13:27 BMI result Body Mass Index 19.0 Tobacco/Smoking Status: Tobacco use Status Tobacco use date assessed 04/19/24 04/19/24 13:34 Patient Tobacco Use Status Former Tobacco user 04/19/24 13:34 Tobacco use type 04/19/24 13:34 e-Cigarette/Vaping Use Never Used 04/19/24 13:27 Depression Screening Interpretation: Negative Thrive Assessment: Date of Thrive Assessment Date Thrive assessed 12/08/23 04/19/24 13:27 Currently or been in a relationship where the following occur: No concerns reported Const Other: Alert oriented x3, no acute cardiorespiratory distress, ambulatory with normal gait, household personal assistant present Orientation/consciousness: patient oriented x3 HENMT Face and sinus: Yes face symmetric Mouth: Normal oral and palatal mucosa present and moist mucous membranes Eyes General: appearance normal, both eyes and all related structures Neck Other: Supple with no lymphadenopathy, thyroid gland nonpalpable Resp Auscultation: clear to auscultation bilaterally Cardio Other: S1-S2 present regular rate and rhythm GI Inspection: Yes normal to inspection Palpation (GI): Soft to palpation, nontender, no guarding and no masses General: Yes no CVA tenderness Back/Spine/Pelvis Back: no CVA tenderness and No back tenderness Skin General skin exam: no rashes or lesions noted Neuro General: patient oriented x3, gait normal, tone normal, moves all extremities, Normal light touch and pain sensation, no focal motor deficits and CN's II-XI intact bilaterally Extrem General: Yes no pedal edema and Yes normal gait Psych Appearance: grossly normal Mental Status: mental status grossly normal Speech and movement: Normal speech and movement present Affect: normal affect Attitude: cooperative Thought process: Normal thought process present Thought content: Normal thought content present Coding Level of Care Code Est Pt Level 4 (07454) Diagnoses Hypotension, unspecified hypotension type I95.9 Hypotension type: unspecified hypotension type Assessment & Plan Assessment & Plan (1) Hypotension: Code(s): I95.9 - Hypotension, unspecified Category: Medical Qualifiers: Hypotension type: unspecified hypotension type Qualified Code(s): I95.9 - Hypotension, unspecified Plan: As per daughter and patient, her blood pressure has been occasionally dropping when they check at home. Lowest blood pressure reading they obtained was 60/40. All the time time patient remains asymptomatic. Instructed to continue midodrine 5 mg 1 tablet 3 times a day, stay well- hydrated. Referral to cardiology ordered Orders: Referrals Cardiology Referral I95.9 - Hypotension, unspecified
--- OUTSIDE RECORDS SUMMARY | 2024-04-19 16:56 | XMS_ITS | Encounter Summary ---
Author Organization [facility] Address [address] [place] [address] Care Team Providers Care Nut Former Name Role Phone Donna Romero Md, MD Primary Care Provider Unavailable Mannie Morillo MD Unavailable Josep Givens PA-C Unavailable [phone] Encounter Details Date Type Department Care Team Description 06/03/2021 Abstract [facility] Thoracic Surgery [place] [address] [phone] Josep Givens PA-C [address] [phone] Social History Tobacco Use Types Packs/Day Years [...] on filedocumented in this encounter Care Teams Nut Former Relationship Specialty Start Date End Date Donna Romero MD, MD PCP - General Internal Medicine 07/11/20 Mannie Morillo MD Specialist Lung Cancer Melter Operator 06/03/21 Josep Givens PA-C [address] [phone] Specialist Thoracic Surgery 07/08/22 documented as of this encounter
--- OUTSIDE RECORDS SUMMARY | 2024-04-19 16:56 | XMS_ITS | Encounter Summary ---
Author Organization [facility] Address [address] [place] [address] Care Team Providers Care Logistics Research Engineer Name Role Phone Donna Romero Md, MD Primary Care Provider Unavailable Mannie Morillo MD Unavailable Josep Givens PA-C Unavailable [phone] Encounter Details Date Type Department Care Team Description 12/10/2021 Orders Only [facility] Thoracic Surgery [place] 299 [facility] [address] [place] [phone] Josep Givens PA-C 299 [facility] [address] [place] [phone] History of lung cancer; Cyst of mediastinum [...] system documented in this encounter Care Teams Logistics Research Engineer Relationship Specialty Start Date End Date Donna Romero MD, MD PCP - General Internal Medicine 07/11/20 Mannie Morillo MD Specialist Lung Cancer [place] Operator 06/03/21 Josep Givens PA-C [address] [phone] Specialist Thoracic Surgery 07/08/22 documented as of this encounter
--- OUTSIDE RECORDS SUMMARY | 2024-04-19 16:56 | XMS_ITS | Encounter Summary ---
Author Organization [facility] Address [address] [place] [address] Care Team Providers Care Belt Turner Name Role Phone Donna Romero Md, MD Primary Care Provider Unavailable Mannie Morillo MD Unavailable Josep Givens PA-C Unavailable [phone] Encounter Details Date Type Department Care Team Description 05/22/2021 Orders Only [facility] Thoracic Surgery [place] 299 [facility] [address] [place] [phone] Josep Givens PA-C 299 [facility] [address] [place] [phone] Mediastinal mass Social History Tobacco Use Types [...] CONTRAST (05/20/2021) Josep Givens PA-C CT SCANS [facility] RADIOLOGY documented in this encounter Visit Diagnoses Diagnosis Mediastinal mass Swelling, mass, or lump in chest documented in this encounter Care Teams Belt Turner Relationship Specialty Start Date End Date Donna Romero MD, MD PCP - General Internal Medicine 07/11/20 Mannie Morillo MD Specialist Lung Cancer Resident Care Manager 06/03/21 Josep Givens PA-C [address] [place] [phone] Specialist Thoracic Surgery 07/08/22 documented as of this encounter
--- OUTSIDE RECORDS SUMMARY | 2024-04-19 16:56 | XMS_ITS | Encounter Summary ---
Author Organization [facility] Address [address] [facility] [place] [address] Care Team Providers Care Tailer In Name Role Phone Donna Romero Md, MD Primary Care Provider Unavailable Mannie Morillo MD Unavailable Josep Givens PA-C Unavailable [phone] Encounter Details Date Type Department Care Team Description 06/30/2022 Orders Only [facility] [address] [facility] [place] [address] Mannie Morillo MD [address] [place] [id number] Social History Tobacco Use Types Packs/Day Years [...] Date/Time Associated Diagnosis Comments OUTSIDE CT Routine 06/29/2022 documented in this encounter Results * OUTSIDE CT (06/29/2022) Mannie Morillo MD RADIOLOGY documented in this encounter Visit Diagnoses Not on filedocumented in this encounter Care Teams Tailer In Relationship Specialty Start Date End Date Donna Romero MD, MD PCP - General Internal Medicine 07/11/20 Mannie Morillo MD Specialist Lung Cancer Assisted Living Director 06/03/21 Josep Givens PA-C [address] [place] [phone] Specialist Thoracic Surgery 07/08/22 documented as of this encounter
--- OUTSIDE RECORDS SUMMARY | 2024-04-19 16:56 | XMS_ITS | Encounter Summary ---
Author Organization [facility] Address [address] [place] [address] Care Team Providers Care Renovator Machine Operator Name Role Phone Donna Romero MD Primary Care Provider [phone] Reason for Visit * Reason Comments Shortness of Breath * Auth/Cert (Routine) Specialty Diagnoses / Procedures Referred By Contac t Referred To Contact Diagnoses Shortness of breath COPD exacerbation (CMS/HCC) Multifocal pneumonia Procedures [facility] IP/OBS CARE ADMIT/DISCHARGE SAME DATE MODERATE LEVEL Josep Ayala MD [address] [place] [address] Phone: tel: fax: [facility] [address] [place] [phone] Phone: tel: Referral ID Status Reason Start Date Expiration Date Visits Re quested Visits Authorized [id number] 1 1 Encounter Details Date Type Department Care Team (Late st Contact Info) Description 03/24/2024 2:29 PM EST - 03/25/2024 3:51 PM EST Emergency [facility] [address] [place] [phone] Bryce Woods MD [address] [place] [phone] Josep Ayala MD [address] [place] [phone] [place] [address] [place] [phone] Donis Haas MD [address] [place] [address] Multifocal pneumonia (Primary Dx); Shortness [...] Signed Date: 03/24/2024 16:33 ET Workstation ID: [id number] Transcribed By: Self Edit Transcribed Date: 03/24/2024 [...] Cooperative, calm. This note was written using [employer] speech recognition software which is prone to typographical errors. If questions occur please do not hesitate to call this provider. Follow-Up Instructions and Recommendations Brayan Cain [address] [place] [phone] No discharge procedures on file. There are [...] Trelegy Ellipta 100-62.5-25 mcg inhaler Generic drug: navucrjsfoz-pnpemstotbvb-xstrpeujld Inhale into the lungs. Where to Get Your Medications These medications were sent to [id number] - [place]AN CAIN - [address] [facility] [address] [place] [phone] azithromycin 500 mg tablet cefpodoxime 200 mg [...] seen and examined the patient with the resident/PA/MANAGER EMPLOYEE RELATIONS and smith elements of all parts of the encounter were performed by me. Patient was reassessed on more than one occasion when required. I reviewed the interval history, interpreted all available radiographic, laboratory and physiological data at the time of service. I agree with the assessment and plan as documented by the resident/PA/MANAGER EMPLOYEE RELATIONS with additions. Patient is already feeling better, [...] 0.5-2.5 mg/3 mL nebulizer solutionIndicatio ns:COPD exacerbation ([facility]) Take 3 mL by nebulization 4 (four) [...] Discharge Needs Discipline following for SNF placement Foundry Process Engineer Informed Choice Informed Choice Given? Yes Transportation [...] infectious concerns): [] Yes / [x] No Wireless Sales Representative: [] Yes / [x] No If YES, Cardiac Rhythm: [] NSR, [] SB, [] ST, [] A-FIB, [] A-Flutter, [] Pacemaker, [] 1st Degree HB, [] 2nd Degree HB, [] 3rd Degree HB Reason for Wireless Sales Representative: VS: Visit Vitals BP 103/67 (BP [...] was negative. Submitted by and Phone Extension: [phone] * Melba Villalpando RN - 03/24/2024 2:29 [...] Procedure Laterality Date OTHER SURGICAL HISTORY PROCEDURE: ND RMVL LUNG OTH/THN PNUMEC RESXN-PLCTJ EMPHY LUNG OTHER SURGICAL HISTORY Right 06/03/2020 PROCEDURE: ND RESCJ&BRONCHOPLASTY PFRMD TM LOBEC/SGMECTOMY; COMMENT: RUL Wedge [...] tablet Take 20 mg by mouth daily. nvxlysjtmzu-icxuhthfjtfy-wbsdhkbqqh (Trelegy Ellipta) 100-62.5-25 mcg inhaler Inhale into [...] Detected Narrative: Testing was performed using the [employer] Respiratory Pathogen PCR Assay. All results must [...] Procedure Abnormality Status --------- ------ CBC auto differential[[id number]] Abnormal Final result Please view results for [...] Signed Date: 03/24/2024 16:33 ET Workstation ID: [id number] Transcribed By: Self Edit Transcribed Date: 03/24/2024 [...] Shortness of breath Multifocal pneumonia COPD exacerbation ([facility]) Procedures Procedures Diagnosis 1. Multifocal pneumonia 2. [...] Please contact author [Kemi Rivero NP] via [employer]. Patient: Jamila Ramírez Admission Date/Time: 03/24/2024 2:29 [...] Date ??? COPD (chronic obstructive pulmonary disease) ([facility]) DX:COPD (chronic obstructive pulmonary disease) (HCC) ??? Depression 04/24/2017 DX:Depression ??? Dysphagia DX:Dysphagia ??? Esophageal reflux DX:Esophageal reflux ??? Hiatal hernia DX:Hiatal hernia ??? Lung cancer (CMS/HCC) DX:Lung cancer (HCC) ??? Nocturnal hypoxia 04/24/2017 DX:Nocturnal hypoxia ??? Ventral hernia without obstruction or gangrene DX:Ventral hernia without obstruction or gangrene Past Surgical History Past Surgical History: Procedure Laterality Date ??? OTHER SURGICAL HISTORY PROCEDURE: ND RMVL LUNG OTH/THN PNUMEC RESXN-PLCTJ EMPHY LUNG ??? OTHER SURGICAL HISTORY Right 06/03/2020 PROCEDURE: ND RESCJ&BRONCHOPLASTY PFRMD TM LOBEC/SGMECTOMY; COMMENT: RUL Wedge [...] Take 20 mg by mouth daily. ??? uonwplvoxit-ykftosvggfrp-ugzjtrfonx (Trelegy Ellipta) 100-62.5-25 mcg inhaler Inhale into [...] Signed Date: 03/24/2024 16:33 ET Workstation ID: [id number] Transcribed By: Self Edit Transcribed Date: 03/24/2024 [...] Mediastinal adenopathy. - Patient is followed by videogame designer Dr. Flaherty - Albuterol as needed, scheduled [...] HCP/emergency contact is patient's daughter Dayne Dickens [phone] Case and plan discussed with Dr Josep [...] Info) Description 07/09/2024 10:30 AM EDT Appointment [facility] CT Scan [address] [place] [phone] 07/19/2024 9:00 AM EDT Ancillary Procedure Pul[facility]olgy - [facility] [address] [phone] Adarsh Henriquez 07/19/2024 10:00 AM EDT Office Visit Pulmonolgy - [facility] [address] [place] [phone] Ana Flaherty MD 175 [facility] [address] [place] [address] documented as of this encounter Procedures Procedure [...] Sputum No pathogens isolated. 03/29/2024 9:[address] [facility] Gram Stain Result >25 WBCs, 10-25 Epithelials - Acceptable for Culture(A) 03/29/2024 9:[address] [facility] Gram Stain Result Many Polymorphonuclear leukocytes(A) 03/29/2024 9:[address] [facility] Gram Stain Result Moderate Epithelial cells(A) 03/29/2024 9:[address] [facility] Gram Stain Result Moderate Gram positive bacilli(A) 03/29/2024 9:[address] [facility] Gram Stain Result Moderate Gram positive cocci in pairs and chains(A) 03/29/2024 9:[address] [facility] Gram Stain Result Few Gram negative bacilli(A) 03/29/2024 9:[address] [facility] Sputum, expectorated Oropharyngeal structure / Unknown 03/25/2024 8:26 AM EST 03/25/2024 8:39 AM EST Kemi Rivero [facility] LAB MICROBIOLOGY - GENER AL ORDERABLES Final Result [facility] [address] [place] [address], * (ABNORMAL) CBC auto differential (03/25/2024 6:02 AM EST) WBC 11.5(H) 4.8 - 10.8 K/mcL LAB HEMETOLOGY METHOD 03/25/2024 6:50 AM EST [facility] RBC 4.00 3.80 - 4.80 M/mcL LAB HEMETOLOGY METHOD 03/25/2024 6:[address] [facility] Hemoglobin 12.2 11.5 - 16.0 g/dL LAB HEMETOLOGY METHOD 03/25/2024 6:[address] [facility] Hematocrit 37.9 35.0 - 47.0 % LAB HEMETOLOGY METHOD 03/25/2024 6:50 AM EST [facility] MCV 94.8 79.0 - 98.0 FL LAB HEMETOLOGY METHOD 03/25/2024 6:[address] [facility] MCH 30.5 27.0 - 32.0 pcg LAB HEMETOLOGY METHOD 03/25/2024 6:[address] [facility] MCHC 32.2 32.0 - 37.0 g/dL LAB HEMETOLOGY METHOD 03/25/2024 6:[address] [facility] RDW 12.7 11.0 - 15.0 % LAB HEMETOLOGY METHOD 03/25/2024 6:[address] [facility] Platelets 380 130 - 400 K/mcL LAB HEMETOLOGY METHOD 03/25/2024 6:[address] [facility] MPV 9.3 7.0 - 11.0 FL LAB HEMETOLOGY METHOD 03/25/2024 6:[address] [facility] NRBC 0.0 <1.0 % LAB HEMETOLOGY METHOD 03/25/2024 6:50 AM [facility] NRBC Absolute 0.00 <0.10 K/mcL LAB HEMETOLOGY METHOD 03/25/2024 6:[address] [facility] Neutrophils Relative 82.9 % LAB HEMETOLOGY METHOD 03/25/2024 6:[address] [facility] Lymphocytes Relative 10.1 % LAB HEMETOLOGY METHOD 03/25/2024 6:[address] [facility] Monocytes Relative 3.1 % LAB HEMETOLOGY METHOD 03/25/2024 6:[address] [facility] Eosinophils Relative 0.0 % LAB HEMETOLOGY METHOD 03/25/2024 6:[address] [facility] Basophils Relative 0.3 % LAB HEMETOLOGY METHOD 03/25/2024 6:[address] [facility] Immature Granulocytes Relative 3.6 % LAB HEMETOLOGY METHOD 03/25/2024 6:[address] [facility] Neutrophils Absolute 9.55(H) 1.50 - 7.00 K/mcL LAB HEMETOLOGY METHOD 03/25/2024 6:[address] [facility] Lymphocytes Absolute 1.16 1.00 - 5.00 K/mcL LAB HEMETOLOGY METHOD 03/25/2024 6:[address] [facility] Monocytes Absolute 0.36 0.20 - 1.00 K/mcL LAB HEMETOLOGY METHOD 03/25/2024 6:[address] [facility] Eosinophils Absolute 0.00 0.00 - 0.50 K/mcL LAB HEMETOLOGY METHOD 03/25/2024 6:[address] [facility] Basophils Absolute 0.03 0.00 - 0.20 K/mcL LAB HEMETOLOGY METHOD 03/25/2024 6:50 AM EST [facility] Immature Granulocytes Absolute 0.41(H) 0.00 - 0.03 K/mcL LAB HEMETOLOGY METHOD 03/25/2024 6:50 AM EST [facility] Blood Venous blood specimen / Unknown Venipuncture / Unknown 03/25/2024 6:02 AM EST 03/25/2024 6:34 AM EST us Josep Ayala MD LAB BLOOD ORDERABLES Final Result [facility] ([facility] [address] [place] [address], * Streptococcus pneumoniae antibodies, IgG, 23 serotypes [...] developed and its performance characteristics determined by [facility] in a manner consistent with CLIA requirements. This test has not been cleared or approved by the U.S. Food and Drug Administration. Test Performed by: [address] [address] Orthodontic Lab Technician: Erin Nicole Ph.D.; CLIA# [id number] Blood Venous blood specimen / Unknown Venipuncture / Unknown 03/25/2024 6:02 AM EST 03/25/2024 6:33 AM EST Kemi Rivero NP LAB BLOOD ORDERABLES Fin al Result [facility] [address] [place] [address] * (ABNORMAL) Basic metabolic panel (03/25/2024 6:02 AM EST) Sodium 144 133 - 145 mmol/L LAB CHEMISTRY METHOD 03/25/2024 7:13 AM EST [facility] Potassium 4.3 3.5 - 5.5 mmol/L LAB CHEMISTRY METHOD 03/25/2024 7:[address] [facility] Chloride 113(H) 96 - 110 mmol/L LAB CHEMISTRY METHOD 03/25/2024 7:[address] [facility] CO2 27 21 - 32 mmol/L LAB CHEMISTRY METHOD 03/25/2024 7:[address] [facility] Anion Gap 4 3 - 11 LAB CHEMISTRY METHOD 03/25/2024 7:[address] [facility] Glucose 128(H) 70 - 100 mg/dL LAB CHEMISTRY METHOD 03/25/2024 7:[address] [facility] BUN 18 5 - 25 mg/dL LAB CHEMISTRY METHOD 03/25/2024 7:[address] [facility] Creatinine 0.47(L) 0.50 - 1.10 mg/dL LAB CHEMISTRY METHOD 03/25/2024 7:[address] [facility] eGFR 103 >=60 mL/min/1. 73m2 LAB CHEMISTRY METHOD 03/25/2024 7:[address] [facility] Comment:Calculation based on the??Chronic Kidney Disease Epidemiology Collaboration (CKD-EPI) equation refit??without adjustment for race. BUN/Creatinine Ratio 38.3 LAB CHEMISTRY METHOD 03/25/2024 7:[address] [facility] Calcium 7.9(L) 8.5 - 10.5 mg/dL LAB CHEMISTRY METHOD 03/25/2024 7:[address] [facility] Blood Venous blood specimen / Unknown Venipuncture / Unknown 03/25/2024 6:02 AM EST 03/25/2024 6:33 AM EST us Josep Ayala MD LAB BLOOD ORDERABLES Final Result [facility] [address] [place] [address], * Rader urine culture tube (03/24/2024 11:09 PM EST) Extra Tube Hold for add-ons. 03/25/2024 1:[address] [facility] Comment:Auto resulted. Urine Urine specimen obtained by clean catch procedure / Unknown Non-blood Collection / Unknown 03/24/2024 11:09 PM EST 03/24/2024 11:49 PM EST us Kemi Andrea Anastacia Rivero [facility] LAB URINE ORDERABLES Fin al Result [facility] [address] [place] [address], [place] [phone] * (ABNORMAL) Urinalysis with reflex microscopic and culture (03/24/2024 11:09 PM EST) Specific Harlan Urine >1.045(H) 1.003 - 1.030 LAB URINALYSIS - AUTOMATED METHOD 03/24/2024 11:[address] [facility] pH, Urine 5.5 5.0 - 8.0 pH LAB URINALYSIS - AUTOMATED METHOD 03/24/2024 11:[address] [facility] Leukocytes, Urine Negative Negative LAB URINALYSIS - AUTOMATED METHOD 03/24/2024 11:[address] [facility] Nitrite, Urine Negative Negative LAB URINALYSIS - AUTOMATED METHOD 03/24/2024 11:[address] [facility] Protein, Urine Trace <=Trace mg/dL LAB URINALYSIS - AUTOMATED METHOD 03/24/2024 11:[address] [facility] Glucose, Urine >=1000(A) Negative mg/dL LAB URINALYSIS - AUTOMATED METHOD 03/24/2024 11:[address] [facility] Ketones, Urine Negative Negative mg/dL LAB URINALYSIS - AUTOMATED METHOD 03/24/2024 11:[address] [facility] Urobilinogen , Urine 1.0 0.2 - 1.0 mg/dL LAB URINALYSIS - AUTOMATED METHOD 03/24/2024 11:[address] [facility] Bilirubin, Urine Negative Negative LAB URINALYSIS - AUTOMATED METHOD 03/24/2024 11:[address] [facility] Blood, Urine Negative Negative LAB URINALYSIS - AUTOMATED METHOD 03/24/2024 11:[address] [facility] Urine Urine specimen obtained by clean catch procedure / Unknown Non-blood Collection / Unknown 03/24/2024 11:09 PM EST 03/24/2024 11:49 PM EST Kemi Rivero NP LAB URINE ORDERABLES Fin al Result Performing Organization Address [facility]/ZIP Co de Phone Number [facility] [address] [place] [address], * Legionella antigen urine, EIA (03/24/2024 11:09 PM EST) Legionella Antigen, Ur Negative Negative 03/25/2024 12:53 AM EST [facility] Urine Urine specimen from urethra / Unknown Non-blood Collection / Unknown 03/24/2024 11:09 PM EST 03/24/2024 11:49 PM EST Narrative [facility] - 03/25/2024 12:53 AM EST Negative for Legionella pneumophilia serogroup 1 antigen. This presumptive result suggests no current or recent infection due to L. pneumophilia serogroup 1. Culture is recommended if Legionella infection is till suspected, as other serogroups and species of Legionella are not detected by this test. Kemi Rivero NP LAB URINE ORDERABLES Fin al Result Performing Organization Address [facility] Co de Phone Number [facility] [address] [place] [address], * Lactate, with Reflex (03/24/2024 8:23 PM EST) LACTIC ACID 0.8 0.4 - 2.0 mmol/L LAB CHEMISTRY METHOD 03/24/2024 9:05 PM EST [facility] Blood Venous blood specimen / Unknown Venipuncture / Unknown 03/24/2024 8:23 PM EST 03/24/2024 8:28 PM EST [facility] BLOOD ORDERABLES Final Resul t [facility] [address] [place] [address], [place] [phone] * Blood Culture, Peripheral #2 (03/24/2024 8:23 PM EST) Culture, Blood No growth at 5 days LAB MICROBIOLOGY METHOD 03/29/2024 9:01 PM EST [facility] Blood Venous blood specimen / Unknown Venipuncture / Unknown 03/24/2024 8:23 PM EST 03/24/2024 8:28 PM EST [facility] LAB MICROBIOLOGY - GENERAL ORDER ERAN Final Result Performing Organization Address [facility]/ZIP Co de Phone Number [facility] [address] [place] [address], [place] [phone] * Blood Culture, Peripheral #1 (03/24/2024 8:23 PM EST) Culture, Blood No growth at 5 days LAB MICROBIOLOGY METHOD 03/29/2024 9:01 PM EST [facility] Blood Venous blood specimen / Unknown Venipuncture / Unknown 03/24/2024 8:23 PM EST 03/24/2024 8:28 PM EST [facility] MICROBIOLOGY - GENERAL ORDER ERAN Final Result [facility] [address] [place] [address], [place] [phone] * Troponin I high sensitivity (03/24/2024 7:11 PM EST) High Sensitivity Troponin I <3 <=54 ng/L LAB CHEMISTRY METHOD 03/24/2024 8:13 PM EST [facility] Blood Venous blood specimen / Unknown Venipuncture / Unknown 03/24/2024 7:11 PM EST 03/24/2024 7:45 PM EST Narrative [facility] - 03/24/2024 8:13 PM EST High levels of biotin in samples may falsely decrease hsTroponin values. ??Use caution when interpreting hsTroponin results in patients taking biotin who exhibit renal impairment (eGFR <60) or in patients taking more than 20 mg/day of biotin. us Loren SUAREZ LAB BLOOD ORDERABLES Final Resul t [facility] [address] [place] [address], * CT Angio Chest wo and/or w [...] by: Jhony Arellano MD on 03/24/2024 19:10:[address] PROCEDURES Final Result * [...] Signed Date: 03/24/2024 16:33 ET Workstation ID: [id number] Transcribed By: Self Edit Transcribed Date: 03/24/2024 [...] Signed Date: 03/24/2024 16:33 ET Workstation ID: [id number] Transcribed By: Self Edit Transcribed Date: 03/24/2024 16:29 ET Taina SUAREZ IMG XR PROCEDURES Elsa l Result * Procalcitonin (03/24/2024 4:05 PM EST) Procalcitonin 0.04 <=0.16 ng/mL LAB CHEMISTRY METHOD 03/25/2024 8:18 AM EST [facility] Blood Venous blood specimen / Unknown Venipuncture / Unknown 03/24/2024 4:05 PM EST 03/24/2024 4:[address] [facility] - 03/25/2024 8:18 AM EST [...] Ayala MD LAB BLOOD ORDERABLES Final Result [facility] [address] [place] [address], * Respiratory virus panel molecular study (03/24/2024 4:05 PM EST) Adenovirus Detection by PCR Not Detected Not Detected LAB MICROBIOLOGY METHOD 03/24/2024 5:[address] [facility] Influenza A PCR Not Detected Not Detected LAB MICROBIOLOGY METHOD 03/24/2024 5:[address] [facility] Influenza B PCR Not Detected Not Detected LAB MICROBIOLOGY METHOD 03/24/2024 5:[address] [facility] Coronavirus 229E Not Detected Not Detected LAB MICROBIOLOGY METHOD 03/24/2024 5:[address] [facility] Coronavirus HKU1 Not Detected Not Detected LAB MICROBIOLOGY METHOD 03/24/2024 5:[address] [facility] Coronavirus OC43 Not Detected Not Detected LAB MICROBIOLOGY METHOD 03/24/2024 5:[address] [facility] Coronavirus NL63 Not Detected Not Detected LAB MICROBIOLOGY METHOD 03/24/2024 5:[address] [facility] Parainfluenza Virus 1 Not Detected Not Detected LAB MICROBIOLOGY METHOD 03/24/2024 5:[address] [facility] Parainfluenza Virus 2 Not Detected Not Detected LAB MICROBIOLOGY METHOD 03/24/2024 5:[address] [facility] Parainfluenza Virus 3 Not Detected Not Detected LAB MICROBIOLOGY METHOD 03/24/2024 5:[address] [facility] Parainfluenza Virus 4 Not Detected Not Detected LAB MICROBIOLOGY METHOD 03/24/2024 5:[address] [facility] RSV PCR Not Detected Not Detected LAB MICROBIOLOGY METHOD 03/24/2024 5:[address] [facility] Human Metapneumovirus A and B Not Detected Not Detected LAB MICROBIOLOGY METHOD 03/24/2024 5:[address] [facility] Rhinovirus/Entero virus Not Detected Not Detected LAB MICROBIOLOGY METHOD 03/24/2024 5:[address] [facility] Bordetella pertussis Not Detected Not Detected LAB MICROBIOLOGY METHOD 03/24/2024 5:[address] [facility] Bordetella parapertussis Not Detected Not Detected LAB MICROBIOLOGY METHOD 03/24/2024 5:[address] [facility] Mycoplasma pneumo by PCR Not Detected Not Detected LAB MICROBIOLOGY METHOD 03/24/2024 5:[address] [facility] Chlamydia pneumoniae Not Detected Not Detected LAB MICROBIOLOGY METHOD 03/24/2024 5:[address] [facility] SARS COV-2 Not Detected Not Detected LAB MICROBIOLOGY METHOD 03/24/2024 5:[address] [facility] Swab Both anterior nares / Unknown Non-blood Collection / Unknown 03/24/2024 4:05 PM EST 03/24/2024 4:15 PM EST Narrative [facility] - 03/24/2024 5:08 PM EST Testing was performed using the [employer] Respiratory Pathogen PCR Assay. All results must [...] that are below the limit of detection. [facility] MICROBIOLOGY - GENERAL ORDER ERAN Final Result Performing Organization Address City/[facility]/ZIP Co de Phone Number [facility] [address] [place] [address], [place] [phone] * (ABNORMAL) Magnesium (03/24/2024 4:05 PM EST) Pathologist [facility] Magnesium 1.7(L) 1.9 - 2.6 mg/dL LAB CHEMISTRY METHOD 03/24/2024 4:39 PM EST [facility] Blood Venous blood specimen / Unknown Venipuncture / Unknown 03/24/2024 4:05 PM EST 03/24/2024 4:12 PM EST [facility] BLOOD ORDERABLES Final Resul t Performing Organization Address City/[facility]/ZIP Co de Phone Number [facility] [address] [place] [address], [place] [phone] * Troponin I high sensitivity (03/24/2024 4:05 PM EST) Pathologist [facility] High Sensitivity Troponin I <3 <=54 ng/L LAB CHEMISTRY METHOD 03/24/2024 4:43 PM EST [facility] Blood Venous blood specimen / Unknown Venipuncture / Unknown 03/24/2024 4:05 PM EST 03/24/2024 4:12 PM EST Narrative [facility] - 03/24/2024 4:43 PM EST High levels of biotin in samples may falsely decrease hsTroponin values. ??Use caution when interpreting hsTroponin results in patients taking biotin who exhibit renal impairment (eGFR <60) or in patients taking more than 20 mg/day of biotin. [facility] BLOOD ORDERABLES Final Resul t Performing Organization Address [facility]/ZIP Co de Phone Number [facility] [address] [place] [address], [place] [phone] * B-type natriuretic peptide (03/24/2024 4:05 PM EST) Pathologist [facility] BNP 10 <=100 pcg/mL LAB CHEMISTRY METHOD 03/24/2024 4:57 PM EST [facility] Blood Venous blood specimen / Unknown Venipuncture / Unknown 03/24/2024 4:05 PM EST 03/24/2024 4:12 PM EST [facility] BLOOD ORDERABLES Final Resul t Performing Organization Address [facility] Co de Phone Number [facility] [address] [place] [address], [place] [phone] * (ABNORMAL) CBC auto differential (03/24/2024 4:05 PM EST) WBC 11.9(H) 4.8 - 10.8 K/mcL LAB HEMETOLOGY METHOD 03/24/2024 4:21 PM EST [facility] RBC 4.50 3.80 - 4.80 M/mcL LAB HEMETOLOGY METHOD 03/24/2024 4:21 PM EST [facility] Hemoglobin 13.6 11.5 - 16.0 g/dL LAB HEMETOLOGY METHOD 03/24/2024 4:21 PM EST [facility] Hematocrit 42.8 35.0 - 47.0 % LAB HEMETOLOGY METHOD 03/24/2024 4:[address] [facility] MCV 94.5 79.0 - 98.0 FL LAB HEMETOLOGY METHOD 03/24/2024 4:[address] [facility] MCH 30.0 27.0 - 32.0 pcg LAB HEMETOLOGY METHOD 03/24/2024 4:[address] [facility] MCHC 31.8(L) 32.0 - 37.0 g/dL LAB HEMETOLOGY METHOD 03/24/2024 4:[address] [facility] RDW 12.6 11.0 - 15.0 % LAB HEMETOLOGY METHOD 03/24/2024 4:[address] [facility] Platelets 428(H) 130 - 400 K/mcL LAB HEMETOLOGY METHOD 03/24/2024 4:[address] [facility] MPV 8.7 7.0 - 11.0 FL LAB HEMETOLOGY METHOD 03/24/2024 4:[address] [facility] NRBC 0.0 <1.0 % LAB HEMETOLOGY METHOD 03/24/2024 4:[address] [facility] NRBC Absolute 0.00 <0.10 K/mcL LAB HEMETOLOGY METHOD 03/24/2024 4:[address] [facility] Neutrophils Relative 81.5 % LAB HEMETOLOGY METHOD 03/24/2024 4:[address] [facility] Lymphocytes Relative 10.7 % LAB HEMETOLOGY METHOD 03/24/2024 4:[address] [facility] Monocytes Relative 4.7 % LAB HEMETOLOGY METHOD 03/24/2024 4:[address] [facility] Eosinophils Relative 0.2 % LAB HEMETOLOGY METHOD 03/24/2024 4:[address] [facility] Basophils Relative 0.5 % LAB HEMETOLOGY METHOD 03/24/2024 4:21 PM EST [facility] Immature Granulocytes Relative 2.4 % LAB HEMETOLOGY METHOD 03/24/2024 4:[address] [facility] Neutrophils Absolute 9.70(H) 1.50 - 7.00 K/mcL LAB HEMETOLOGY METHOD 03/24/2024 4:[address] [facility] Lymphocytes Absolute 1.28 1.00 - 5.00 K/mcL LAB HEMETOLOGY METHOD 03/24/2024 4:[address] [facility] Monocytes Absolute 0.56 0.20 - 1.00 K/mcL LAB HEMETOLOGY METHOD 03/24/2024 4:[address] [facility] Eosinophils Absolute 0.02 0.00 - 0.50 K/mcL LAB HEMETOLOGY METHOD 03/24/2024 4:[address] [facility] Basophils Absolute 0.06 0.00 - 0.20 K/mcL LAB HEMETOLOGY METHOD 03/24/2024 4:[address] [facility] Immature Granulocytes Absolute 0.29(H) 0.00 - 0.03 K/mcL LAB HEMETOLOGY METHOD 03/24/2024 4:[address] [facility] Blood Venous blood specimen / Unknown Venipuncture / Unknown 03/24/2024 4:05 PM EST 03/24/2024 4:12 PM EST us Taina SUAREZ LAB BLOOD ORDERABLES F inal Result [facility] [address] [place] [address], * (ABNORMAL) Basic metabolic panel (03/24/2024 4:05 PM EST) Pathologist [facility] Sodium 137 133 - 145 mmol/L LAB CHEMISTRY METHOD 03/24/2024 4:[address] [facility] Potassium 3.8 3.5 - 5.5 mmol/L LAB CHEMISTRY METHOD 03/24/2024 4:[address] [facility] Chloride 108 96 - 110 mmol/L LAB CHEMISTRY METHOD 03/24/2024 4:[address] [facility] CO2 27 21 - 32 mmol/L LAB CHEMISTRY METHOD 03/24/2024 4:[address] [facility] Anion Gap 2(L) 3 - 11 LAB CHEMISTRY METHOD 03/24/2024 4:[address] [facility] Glucose 252(H) 70 - 100 mg/dL LAB CHEMISTRY METHOD 03/24/2024 4:[address] [facility] BUN 28(H) 5 - 25 mg/dL LAB CHEMISTRY METHOD 03/24/2024 4:[address] [facility] Creatinine 0.54 0.50 - 1.10 mg/dL LAB CHEMISTRY METHOD 03/24/2024 4:[address] [facility] eGFR 100 >=60 mL/min/1. 73m2 LAB CHEMISTRY METHOD 03/24/2024 4:[address] [facility] Comment:Calculation based on the??Chronic Kidney Disease Epidemiology Collaboration (CKD-EPI) equation refit??without adjustment for race. BUN/Creatinine Ratio 51.9 LAB CHEMISTRY METHOD 03/24/2024 4:[address] [facility] Calcium 8.8 8.5 - 10.5 mg/dL LAB CHEMISTRY METHOD 03/24/2024 4:[address] [facility] Blood Venous blood specimen / Unknown Venipuncture / Unknown 03/24/2024 4:05 PM EST 03/24/2024 4:12 PM EST us Taina SUAREZ LAB BLOOD ORDERABLES F inal Result [facility] [address] [place] [address], * ECG 12 lead (03/24/2024 3:56 PM EST) Ventricular Rate ECG 100 BPM GEMUSE Atrial Rate 100 BPM GEMUSE P-R Interval 138 ms GEMUSE QRS Duration 72 ms GEMUSE Q-T Interval 320 ms GEMUSE QTc 412 ms GEMUSE P Wave Fletcher 77 degrees GEMUSE R Fletcher 29 degrees GEMUSE T Fletcher 58 degrees GEMUSE ECG Interpretation Normal sinus [...] at 2050, 2nd Line Option: -ONLY give ND if patient is unable to take orally [...] at 2050, 2nd Line Option: -ONLY give ND if patient is unable to take orally [...] at 2050, 2nd Line Option: -ONLY give ND if patient is unable to take orally [...] documented as of this encounter Care Teams Renovator Machine Operator Relationship Specialty Start Date End Date Donna Romero MD [address] [place] [address] PCP - General Internal Medicine 10/30/18 documented as of this encounter
--- OUTSIDE RECORDS SUMMARY | 2024-04-19 16:56 | XMS_ITS | Encounter Summary ---
Author Organization [facility] Address [address] [facility] [place] [address] Care Team Providers Care Insurance Assistant Name Role Phone Donna Romero Md, MD Primary Care Provider Unavailable Mannie Morillo MD Unavailable Josep Givens PA-C Unavailable [phone] Encounter Details Date Type Department Care Team Description 06/16/2022 Telephone Gastroenterology - [place] [address] [facility] [address] [place] [phone] David Burton PA-C [address] [place] [id number] Social History Tobacco Use Types Packs/Day Years [...] AM EDT Booked Barium Swallow at [address] [facility] for patient on August 27 at 8:30am w/ arrival at 8:10am. Called the patient to notify of appointment details, including nothing to eat/drink after midnight. I also mailed an appointment letter. Order has been faxed to [phone]. documented in this encounter Plan of Treatment Not on file documented as of this encounter Visit Diagnoses Not on filedocumented in this encounter Care Teams Insurance Assistant Relationship Specialty Start Date End Date Donna Romero MD, MD PCP - General Internal Medicine 07/11/20 Mannie Morillo MD Specialist Lung Cancer Endorsement Clerk 06/03/21 Josep Givens PA-C [address] [place] [phone] Specialist Thoracic Surgery 07/08/22 documented as of this encounter
--- OUTSIDE RECORDS SUMMARY | 2024-04-19 16:56 | XMS_ITS | Encounter Summary ---
Author Organization [facility] Address [address] [place] [address] Care Team Providers Care Mechanics Supervisor Name Role Phone Donna Romero Md, MD Primary Care Provider Unavailable Mannie Morillo MD Unavailable Josep Givens PA-C Unavailable [phone] Reason for Visit * Reason Comments Imaging Review Chest CT 05/20/21 Encounter Details Date Type Department Care Team Description 06/09/2021 Abstract [facility] Medical [facility] Thoracic Surgery [place] [address] [facility] [address] [place] [phone] Josep Givens PA-C [address] [facility] [address] [place] [phone] Social History Tobacco Use Types Packs/Day Years [...] on filedocumented in this encounter Care Teams Mechanics Supervisor Relationship Specialty Start Date End Date Donna Romero MD, MD PCP - General Internal Medicine 07/11/20 Mannie Morillo MD Specialist Lung Cancer [place] 06/03/21 Josep Givens PA-C [address] [place] [phone] Specialist Thoracic Surgery 07/08/22 documented as of this encounter
--- OUTSIDE RECORDS SUMMARY | 2024-04-19 16:56 | XMS_ITS | Encounter Summary ---
Author Organization [facility] Address [address] [facility] [place] [address] Care Team Providers Care Chicken Boner Name Role Phone Donna Romero Md, MD Primary Care Provider Unavailable Mannie Morillo MD Unavailable Josep Givens PA-C Unavailable [phone] Encounter Details Date Type Department Care Team Description 06/09/2021 Orders Only [facility] [address] [facility] [place] [address] Mannie Morillo MD [address] [place] [phone] Social History Tobacco Use Types Packs/Day Years [...] on filedocumented in this encounter Care Teams Chicken Boner Relationship Specialty Start Date End Date Donna Romero MD, MD PCP - General Internal Medicine 07/11/20 Mannie Morillo MD Specialist Lung Cancer [employer] 06/03/21 Josep Givens PA-C [address] [place] [phone] Specialist Thoracic Surgery 07/08/22 documented as of this encounter
--- OUTSIDE RECORDS SUMMARY | 2024-04-19 16:56 | XMS_ITS | Clinical Summary ---
Author Organization [facility] Address [address] [place] [id number] Phone Care Team Providers Care Marine Architect Name Role Phone Donna Romero MD Primary Care Provider [phone] Allergies No known active allergies Medications nabumetone [...] total) by mouth at bedtime. 025 Active magnesium oxide (MAG-OX) 400 mg (241.3 [...] of candidiasis. Do not swallow. 1 each 2025 Active meloxicam (MOBIC) 15 mg tablet [...] a day for 5 days. 10 each 025 2024 Discontinued(S top Taking at Discharge) dextromethorpha [...] 025 2024 Discontinued(S top Taking at Discharge) guaiFENesin (MUCINEX) 600 mg 12 hr tablet Take 1 tablet (600 mg total) by mouth every 12 (twelve) hours for 10 days. Do not crush, chew, or split. 20 each 025 2024 azithromycin (ZITHROMAX) 250 mg tablet Take 1 tablet (250 mg total) by mouth 1 (one) time each day for 6 doses. 6 each 025 2024 predniSONE (DELTASONE) 20 mg tablet Take 2 [...] 3 days. 15 each 025 2024 Active Problems Problem Noted [...] 8:30 AM EST Office Visit Pulmonolgy - [place] [address] [facility] [address] [place] [phone] Ana Flaherty MD Chronic obstructive pulmonary disease, unspecified COPD type (CMS/HCC) (Primary Dx); Hypoxemia 04/04/2024 8:25 AM EST - 04/07/2024 1:21 PM EST Emergency [facility] Intermediate Care Unit [address] [place] [phone] Saray Darden DO Kenton, Mark A, MD Bukalo, Nermina, MD Bell, Alistair A, MD COPD exacerbation (CMS/HCC) (Primary Dx); Hypotension, unspecified hypotension type Discharge Disposition: Home or Self Care 03/24/2024 2:29 PM EST - 03/25/2024 3:51 PM EST Emergency [facility] Urology Unit [address] [place] [phone] Bryce Woods MD Jones, Christopher, MD Nasser, Nada S, MD Santoyo-Pacheco, Omar D, MD Multifocal pneumonia (Primary Dx); Shortness of breath; COPD exacerbation (CMS/HCC) Discharge Disposition: Home or Self Care from Last 3 Months Surgical History Surgery Date Site/Laterality Comments OTHER SURGICAL HISTORY PROCEDURE: [place] RMVL LUNG OTH/THN PNUMEC RESXN-PLCTJ EMPHY LUNG OTHER SURGICAL HISTORY 06/03/2020 Right PROCEDURE: [place] RESCJ&BRONCHOPLASTY PFRMD TM LOBEC/SGMECTOMY; COMMENT: RUL Wedge [...] for your loved ones. For example, child therapist or elderly care for an older adult? [...] Upcoming Encounters Date Type Department Care Team ([facility] st Contact Info) Description 07/09/2024 10:30 AM EDT Appointment [facility] CT Scan [address] [place] [phone] 07/19/2024 9:00 AM EDT Ancillary Procedure Pulmonolgy - [place] [address] [phone] Adarsh Henriquez 07/19/2024 10:00 AM EDT [facility] [address] [phone] Ana Flaherty MD [address] [id number] Health Maintenance Due Date Last Done Comments [...] LAB CHEMISTRY METHOD 04/07/2024 7:27 AM EST [facility] Blood Venous blood specimen / Unknown Venipuncture / Unknown 04/07/2024 6:01 AM EST 04/07/2024 6:39 AM EST us Piyush Hallman MD LAB BLOOD ORDERABLES Final Re sult [facility] [address] [place] [address], * (ABNORMAL) Basic metabolic panel (04/07/2024 6:01 AM EST) Only the most recent of4 resultswithin the time period is included. Sodium 139 133 - 145 mmol/L LAB CHEMISTRY METHOD 04/07/2024 7:46 AM [facility] Potassium 3.6 3.5 - 5.5 mmol/L LAB CHEMISTRY METHOD 04/07/2024 7:46 AM [facility] Chloride 107 96 - 110 mmol/L LAB CHEMISTRY METHOD 04/07/2024 7:46 AM [facility] CO2 27 21 - 32 mmol/L LAB CHEMISTRY METHOD 04/07/2024 7:46 AM [facility] Anion Gap 5 3 - 11 LAB CHEMISTRY METHOD 04/07/2024 7:46 AM [facility] Glucose 100 70 - 100 mg/dL LAB CHEMISTRY METHOD 04/07/2024 7:46 AM [facility] BUN 16 5 - 25 mg/dL LAB CHEMISTRY METHOD 04/07/2024 7:46 AM [facility] Creatinine 0.35(L) 0.50 - 1.10 mg/dL LAB CHEMISTRY METHOD 04/07/2024 7:46 AM [facility] eGFR 111 >=60 mL/min/1. 73m2 LAB CHEMISTRY METHOD 04/07/2024 7:46 AM [facility] Comment:Calculation based on the??Chronic Kidney Disease Epidemiology Collaboration (CKD-EPI) equation refit??without adjustment for race. BUN/Creatinine Ratio 45.7 LAB CHEMISTRY METHOD 04/07/2024 7:46 AM [facility] Calcium 7.3(L) 8.5 - 10.5 mg/dL LAB CHEMISTRY METHOD 04/07/2024 7:46 AM EST [facility] Blood Venous blood specimen / Unknown Venipuncture / Unknown 04/07/2024 6:01 AM EST 04/07/2024 6:39 AM EST us Piyush Hallman MD LAB BLOOD ORDERABLES Final Re sult [facility] [address] [place] [address], [place] [phone] * Lavender tube (04/07/2024 5:58 AM EST) Extra Tube Hold for add-ons. 04/07/2024 8:01 AM EST [facility] Comment:Auto resulted. Blood Venous blood specimen / Unknown 04/07/2024 5:58 AM EST 04/07/2024 6:40 AM EST us Piyush Hallman MD LAB BLOOD ORDERABLES Final Re sult Performing Organization Address City/[facility]/ZIP Co de Phone Number [facility] [address] [place] [address], [place] [phone] * Procalcitonin (04/05/2024 4:08 AM EST) Only the most recent of2 resultswithin the time period is included. Procalcitonin <0.02 <=0.16 ng/mL LAB CHEMISTRY METHOD 04/05/2024 11:53 AM EST [facility] Blood Venous blood specimen / Unknown Venipuncture / Unknown 04/05/2024 4:08 AM EST 04/05/2024 4:40 AM EST Narrative [facility] - 04/05/2024 11:53 AM EST [...] ORDERABLES Final Re sult Performing Organization Address [facility]/ZIP Co de Phone Number [facility] [address] [place] [address], * Phosphorus (04/05/2024 4:08 AM EST) Phosphorus 2.6 2.5 - 4.5 mg/dL LAB CHEMISTRY METHOD 04/05/2024 5:16 AM EST [facility] Blood Venous blood specimen / Unknown Venipuncture / Unknown 04/05/2024 4:08 AM EST 04/05/2024 4:40 AM EST Cynthia SUAREZ LAB BLOOD ORDERABLES Final Result Performing Organization Address [facility]/ZIP Co de Phone Number [facility] [address] [place] [address], * Blood Culture, Peripheral #2 (04/04/2024 10:19 AM EST) Only the most recent of4 resultswithin the time period is included. Culture, Blood No growth at 5 days 04/09/2024 11:01 AM EST [facility] Blood Venous blood specimen / Unknown Venipuncture / Unknown 04/04/2024 10:19 AM EST 04/04/2024 10:30 AM EST [facility] MICROBIOLOGY - GENERAL ORDER ERAN Final Result Performing Organization Address [facility] Co de Phone Number [facility] [address] [place] [address], [place] [phone] * B-type natriuretic peptide (04/04/2024 10:19 AM EST) Only the most recent of2 resultswithin the time period is included. BNP 4 <=100 pcg/mL LAB CHEMISTRY METHOD 04/04/2024 11:21 AM EST [facility] Blood Venous blood specimen / Unknown Venipuncture / Unknown 04/04/2024 10:19 AM EST 04/04/2024 10:30 AM EST [facility] BLOOD ORDERAB[facility] Final Resul t Performing Organization Address [facility] de Phone Number [facility] [address] [place] [address], [place] [phone] * CT Angio Chest wo and/or w [...] Signed Date: 04/04/2024 10:57 ET Workstation ID: [id number] Transcribed By: Self Edit Transcribed Date: 04/04/2024 [...] Signed Date: 04/04/2024 10:57 ET Workstation ID: [id number] Transcribed By: Self Edit Transcribed Date: 04/04/2024 10:27 ET Loren SUAREZ IM CT PROCEDURES Final Result * (ABNORMAL) Urinalysis with reflex microscopic and culture (04/04/2024 9:52 AM EST) Only the most recent of2 resultswithin the time period is included. Specific [place] Urine 1.027 1.003 - 1.030 LAB URINALYSIS - AUTOMATED METHOD 04/04/2024 10:45 AM EST [facility] pH, Urine 6.5 5.0 - 8.0 pH LAB URINALYSIS - AUTOMATED METHOD 04/04/2024 10:45 AM [facility] Leukocytes, Urine Trace(A) Negative LAB URINALYSIS - AUTOMATED METHOD 04/04/2024 10:45 AM [facility] Nitrite, Urine Negative Negative LAB URINALYSIS - AUTOMATED METHOD 04/04/2024 10:45 AM [facility] Protein, Urine Negative <=Trace mg/dL LAB URINALYSIS - AUTOMATED METHOD 04/04/2024 10:45 AM [facility] Glucose, Urine Negative Negative mg/dL LAB URINALYSIS - AUTOMATED METHOD 04/04/2024 10:45 AM [facility] Ketones, Urine Trace(A) Negative mg/dL LAB URINALYSIS - AUTOMATED METHOD 04/04/2024 10:45 AM [facility] Urobilinogen, Urine 0.2 0.2 - 1.0 mg/dL LAB URINALYSIS - AUTOMATED METHOD 04/04/2024 10:45 AM [facility] Bilirubin, Urine Negative Negative LAB URINALYSIS - AUTOMATED METHOD 04/04/2024 10:45 AM [facility] Blood, Urine Negative Negative LAB URINALYSIS - AUTOMATED METHOD 04/04/2024 10:45 AM [facility] RBC, Urine 4.3(H) 0 - 4 /HPF LAB URINALYSIS - AUTOMATED METHOD 04/04/2024 10:45 AM [facility] WBC, Urine 4.8(H) 0 - 4 /HPF LAB URINALYSIS - AUTOMATED METHOD 04/04/2024 10:45 AM [facility] Squamous Epithelial, Urine 64(H) 0 - 60 /LPF LAB URINALYSIS - AUTOMATED METHOD 04/04/2024 10:45 AM [facility] Bacteria, Urine Few(A) Negative /HPF LAB URINALYSIS - AUTOMATED METHOD 04/04/2024 10:45 AM [facility] Hyaline Casts, Urine 1.2 0 - 3 /LPF LAB URINALYSIS - AUTOMATED METHOD 04/04/2024 10:45 AM [facility] Urine Urine specimen obtained by clean catch procedure / Unknown Non-blood Collection / Unknown 04/04/2024 9:52 AM EST 04/04/2024 10:31 AM EST [employer] [place] LAB URINE ORDERABLES Final Resul t Performing Organization Address [facility]/ZIP Co de Phone Number [facility] [address] [place] [address], [place] [phone] * Rader urine culture tube (04/04/2024 9:52 AM EST) Only the most recent of2 resultswithin the time period is included. Extra Tube Hold for add-ons. 04/04/2024 12:02 PM [facility] Comment:Auto resulted. Urine Urine specimen obtained by clean catch procedure / Unknown Non-blood Collection / Unknown 04/04/2024 9:52 AM EST 04/04/2024 10:31 AM EST [employer] [place] LAB URINE ORDERABLES Final Resul t Performing Organization Address City/[facility]/ZIP Co de Phone Number [facility] [address] [place] [address], [place] [phone] * Culture urine (04/04/2024 9:52 AM EST) Culture, Urine No growth 04/05/2024 11:05 AM [facility] Urine Urine specimen obtained by clean catch procedure / Unknown Non-blood Collection / Unknown 04/04/2024 9:52 AM EST 04/04/2024 10:45 AM EST [employer] [facility] LAB MICROBIOLOGY - GENERAL ORDER ERAN Final Result [facility] [address] [place] [address], * Respiratory virus panel molecular study (04/04/2024 9:45 AM EST) Only the most recent of2 resultswithin the time period is included. Adenovirus Detection by PCR Not Detected Not Detected LAB MICROBIOLOGY METHOD 04/04/2024 10:55 AM EST [facility] Influenza A PCR Not Detected Not Detected LAB MICROBIOLOGY METHOD 04/04/2024 10:55 AM EST [facility] Influenza B PCR Not Detected Not Detected LAB MICROBIOLOGY METHOD 04/04/2024 10:55 AM EST [facility] Coronavirus 229E Not Detected Not Detected LAB MICROBIOLOGY METHOD 04/04/2024 10:55 AM EST [facility] Coronavirus HKU1 Not Detected Not Detected LAB MICROBIOLOGY METHOD 04/04/2024 10:55 AM EST [facility] Coronavirus OC43 Not Detected Not Detected LAB MICROBIOLOGY METHOD 04/04/2024 10:55 AM EST [facility] Coronavirus NL63 Not Detected Not Detected LAB MICROBIOLOGY METHOD 04/04/2024 10:55 AM EST [facility] Parainfluenza Virus 1 Not Detected Not Detected LAB MICROBIOLOGY METHOD 04/04/2024 10:55 AM EST [facility] Parainfluenza Virus 2 Not Detected Not Detected LAB MICROBIOLOGY METHOD 04/04/2024 10:55 AM EST [facility] Parainfluenza Virus 3 Not Detected Not Detected LAB MICROBIOLOGY METHOD 04/04/2024 10:55 AM EST [facility] Parainfluenza Virus 4 Not Detected Not Detected LAB MICROBIOLOGY METHOD 04/04/2024 10:55 AM [facility] RSV PCR Not Detected Not Detected LAB MICROBIOLOGY METHOD 04/04/2024 10:55 AM EST [facility] Human Metapneumovirus A and B Not Detected Not Detected LAB MICROBIOLOGY METHOD 04/04/2024 10:55 AM EST [facility] Rhinovirus/Entero virus Not Detected Not Detected LAB MICROBIOLOGY METHOD 04/04/2024 10:55 AM EST [facility] Bordetella pertussis Not Detected Not Detected LAB MICROBIOLOGY METHOD 04/04/2024 10:55 AM EST [facility] Bordetella parapertussis Not Detected Not Detected LAB MICROBIOLOGY METHOD 04/04/2024 10:55 AM EST [facility] Mycoplasma pneumo by PCR Not Detected Not Detected LAB MICROBIOLOGY METHOD 04/04/2024 10:55 AM EST [facility] Chlamydia pneumoniae Not Detected Not Detected LAB MICROBIOLOGY METHOD 04/04/2024 10:55 AM [facility] SARS COV-2 Not Detected Not Detected LAB MICROBIOLOGY METHOD 04/04/2024 10:55 AM [facility] Swab Both anterior nares / Unknown Non-blood Collection / Unknown 04/04/2024 9:45 AM EST 04/04/2024 9:53 AM EST [facility] - 04/04/2024 10:55 AM EST Testing was performed using the [employer] Respiratory Pathogen PCR Assay. All results must [...] ERAN Final Result [facility] [address] [place] [address], * Thyroid stimulating hormone with reflex to free t4 and free t3 (04/04/2024 9:19 AM EST) TSH 1.84 0.40 - 4.00 mcIU/mL LAB CHEMISTRY METHOD 04/04/2024 4:01 PM [facility] Blood Venous blood specimen / Unknown Venipuncture / Unknown 04/04/2024 9:19 AM EST 04/04/2024 9:53 AM EST Cynthia SUAREZ LAB BLOOD ORDERABLES Final Result [facility] [address] [place] [address], [place] [phone] * (ABNORMAL) CBC auto differential (04/04/2024 9:19 AM EST) Only the most recent of3 resultswithin the time period is included. [facility] WBC 8.4 4.8 - 10.8 K/mcL LAB HEMETOLOGY METHOD 04/04/2024 10:26 AM [facility] RBC 4.20 3.80 - 4.80 M/mcL LAB HEMETOLOGY METHOD 04/04/2024 10:26 AM [facility] Hemoglobin 12.8 11.5 - 16.0 g/dL LAB HEMETOLOGY METHOD 04/04/2024 10:26 AM [facility] Hematocrit 41.7 35.0 - 47.0 % LAB HEMETOLOGY METHOD 04/04/2024 10:26 AM [facility] MCV 98.8(H) 79.0 - 98.0 FL LAB HEMETOLOGY METHOD 04/04/2024 10:26 AM [facility] MCH 30.3 27.0 - 32.0 pcg LAB HEMETOLOGY METHOD 04/04/2024 10:26 AM [facility] MCHC 30.7(L) 32.0 - 37.0 g/dL LAB HEMETOLOGY METHOD 04/04/2024 10:26 AM [facility] RDW 14.2 11.0 - 15.0 % LAB HEMETOLOGY METHOD 04/04/2024 10:26 AM [facility] Platelets 298 130 - 400 K/mcL LAB HEMETOLOGY METHOD 04/04/2024 10:26 AM [facility] MPV 8.8 7.0 - 11.0 FL LAB HEMETOLOGY METHOD 04/04/2024 10:26 AM [facility] NRBC 0.0 <1.0 % LAB HEMETOLOGY METHOD 04/04/2024 10:26 AM [facility] NRBC Absolute 0.00 <0.10 K/mcL LAB HEMETOLOGY METHOD 04/04/2024 10:26 AM [facility] Neutrophils Relative 61.8 % LAB HEMETOLOGY METHOD 04/04/2024 10:26 AM [facility] Lymphocytes Relative 22.6 % LAB HEMETOLOGY METHOD 04/04/2024 10:26 AM [facility] Monocytes Relative 10.5 % LAB HEMETOLOGY METHOD 04/04/2024 10:26 AM [facility] Eosinophils Relative 2.0 % LAB HEMETOLOGY METHOD 04/04/2024 10:26 AM [facility] Basophils Relative 1.1 % LAB HEMETOLOGY METHOD 04/04/2024 10:26 AM [facility] Immature Granulocytes Relative 2.0 % LAB HEMETOLOGY METHOD 04/04/2024 10:26 AM [facility] Neutrophils Absolute 5.17 1.50 - 7.00 K/mcL LAB HEMETOLOGY METHOD 04/04/2024 10:26 AM [facility] Lymphocytes Absolute 1.89 1.00 - 5.00 K/mcL LAB HEMETOLOGY METHOD 04/04/2024 10:26 AM [facility] Monocytes Absolute 0.88 0.20 - 1.00 K/mcL LAB HEMETOLOGY METHOD 04/04/2024 10:26 AM EST [facility] Eosinophils Absolute 0.17 0.00 - 0.50 K/[facility] LAB HEMETOLOGY METHOD 04/04/2024 10:26 AM EST [facility] Basophils Absolute 0.09 0.00 - 0.20 K/[facility] LAB HEMETOLOGY METHOD 04/04/2024 10:26 AM EST [facility] Immature Granulocytes Absolute 0.17(H) 0.00 - 0.03 K/[facility] LAB HEMETOLOGY METHOD 04/04/2024 10:26 AM EST [facility] Blood Venous blood specimen / Unknown Venipuncture / Unknown 04/04/2024 9:19 AM EST 04/04/2024 9:53 AM EST Saray Eric Trell Darden LAB BLOOD ORDERABLES Elsa l Result Performing Organization Address City/[facility]/ZIP Co de Phone Number [facility] [address] [place] [address], [place] [phone] * Lactate (04/04/2024 9:19 AM EST) [facility] Lactate 1.0 0.4 - 2.0 mmol/L LAB CHEMISTRY METHOD 04/04/2024 10:28 AM EST [facility] Blood Venous blood specimen / Unknown Venipuncture / Unknown 04/04/2024 9:19 AM EST 04/04/2024 9:49 AM EST Saray Eric Trellsulema Darden LAB BLOOD ORDERABLES Elsa l Result [facility] [address] [place] [address], [place] [phone] * (ABNORMAL) Venous blood gas (04/04/2024 9:19 AM EST) pH, Thanh 7.43(H) 7.32 - 7.42 pH 04/04/2024 9:53 AM [facility] pCO2, Thanh 46 41 - 51 mmHg 04/04/2024 9:53 AM [facility] pO2, Thanh 43(H) 25 - 40 mmHg 04/04/2024 9:53 AM [facility] HCO3, Venous 28.3(H) 22.0 - 26.0 mmol/L 04/04/2024 9:53 AM [facility] O2 Sat, Thanh 75.4 % 04/04/2024 9:53 AM [facility] Base Excess, Thanh 5.2(H) -2.0 - 2.0 mmol/L 04/04/2024 9:53 AM [facility] Blood Venous blood specimen / Unknown Venipuncture / Unknown 04/04/2024 9:19 AM EST 04/04/2024 9:53 AM EST us Saray Darden DO LAB BLOOD ORDERABLES Elsa l Result [facility] [address] [place] [address], * (ABNORMAL) Comprehensive metabolic panel (04/04/2024 9:19 AM EST) Sodium 142 133 - 145 mmol/L LAB CHEMISTRY METHOD 04/04/2024 11:12 AM [facility] Potassium 4.6 3.5 - 5.5 mmol/L LAB CHEMISTRY METHOD 04/04/2024 11:12 AM [facility] Chloride 107 96 - 110 mmol/L LAB CHEMISTRY METHOD 04/04/2024 11:12 AM [facility] CO2 29 21 - 32 mmol/L LAB CHEMISTRY METHOD 04/04/2024 11:12 AM [facility] Anion Gap 6 3 - 11 LAB CHEMISTRY METHOD 04/04/2024 11:12 AM [facility] Glucose 78 70 - 100 mg/dL LAB CHEMISTRY METHOD 04/04/2024 11:12 AM [facility] BUN 30(H) 5 - 25 mg/dL LAB CHEMISTRY METHOD 04/04/2024 11:12 AM [facility] Comment:Results verified by repeat testing Creatinine 0.52 0.50 - 1.10 mg/dL LAB CHEMISTRY METHOD 04/04/2024 11:12 AM [facility] eGFR 101 >=60 mL/min/1. 73m2 LAB CHEMISTRY METHOD 04/04/2024 11:12 AM [facility] Comment:Calculation based on the??Chronic Kidney Disease Epidemiology Collaboration (CKD-EPI) equation refit??without adjustment for race. BUN/Creatinine Ratio 57.7 LAB CHEMISTRY METHOD 04/04/2024 11:12 AM [facility] Calcium 9.3 8.5 - 10.5 mg/dL LAB CHEMISTRY METHOD 04/04/2024 11:12 AM [facility] AST (SGOT) 24 10 - 42 unit/L LAB CHEMISTRY METHOD 04/04/2024 11:12 AM [facility] ALT (SGPT) 45 10 - 60 unit/L LAB CHEMISTRY METHOD 04/04/2024 11:12 AM [facility] Alkaline Phosphatase 84 42 - 121 unit/L LAB CHEMISTRY METHOD 04/04/2024 11:12 AM [facility] Total Protein 6.7 6.0 - 8.0 g/dL LAB CHEMISTRY METHOD 04/04/2024 11:12 AM [facility] Albumin 3.1(L) 3.2 - 5.0 g/dL LAB CHEMISTRY METHOD 04/04/2024 11:12 AM [facility] Total Bilirubin 0.7 0.0 - 1.4 mg/dL LAB CHEMISTRY METHOD 04/04/2024 11:12 AM [facility] Blood Venous blood specimen / Unknown Venipuncture / Unknown 04/04/2024 9:19 AM EST 04/04/2024 9:53 AM EST Saray Darden DO LAB BLOOD ORDERABLES Elsa l Result Performing Organization Address [facility] Co de Phone Number [facility]) [facility] [address] [place] [address], [place] [phone] * ECG 12 lead (04/04/2024 9:10 AM EST) Only the most recent of2 resultswithin the time period is included. Ventricular Rate ECG 86 BPM GEMUSE Atrial Rate 86 BPM GEMUSE P-R Interval 106 ms GEMUSE QRS Duration 80 ms GEMUSE Q-T Interval 340 ms GEMUSE QTc 406 ms GEMUSE R [place] 53 degrees GEMUSE T [place] 60 degrees GEMUSE ECG Interpretation Sinus rhythm When compared with ECG of 24-MAR-2024 15:56, No significant change was found Confirmed by EDIL ARAIZA ([id number]) on 04/04/2024 8:07:00 PM GEM[facility] 04/04/2024 9:10 AM EST 04/04/2024 8:07 PM EST us Saray Darden DO ECG ORDERABLES Final Res ult Performing Organization Address [facility] de Phone Number [facility] * XR Chest 2 [...] Signed Date: 04/04/2024 09:08 ET Workstation ID: [id number] Transcribed By: Self Edit Transcribed Date: 04/04/2024 [...] Signed Date: 04/04/2024 09:08 ET Workstation ID: [id number] Transcribed By: Self Edit Transcribed Date: 04/04/2024 [...] Acceptable for Culture(A) 03/29/2024 9:41 AM EST [facility] Gram Stain Result Many Polymorphonuclear leukocytes(A) 03/29/2024 9:41 AM EST [facility] Gram Stain Result Moderate Epithelial cells(A) 03/29/2024 9:41 AM EST [facility] Gram Stain Result Moderate Gram positive bacilli(A) 03/29/2024 9:41 AM EST [facility] Gram Stain Result Moderate Gram positive cocci in pairs and chains(A) 03/29/2024 9:41 AM EST [facility] Gram Stain Result Few Gram negative bacilli(A) 03/29/2024 9:41 AM EST [facility] Sputum, expectorated Oropharyngeal structure / Unknown 03/25/2024 8:26 AM EST 03/25/2024 8:39 AM EST Kemi Rivero NP LAB MICROBIOLOGY - [facility] AL ORDERABLES Final Result [facility] [address] [place] [address], * Streptococcus pneumoniae antibodies, IgG, 23 serotypes [...] and its performance characteristics determined by [facility] in a manner consistent with CLIA requirements. This test has not been cleared or approved by the U.S. Food and Drug Administration. Test Performed by: [facility] - [address] [address] [employer] Consultant: Erin Nicole Ph.D.; CLIA# [id number] Blood Venous blood specimen / Unknown Venipuncture / Unknown 03/25/2024 6:02 AM EST 03/25/2024 6:33 AM EST us Kemi Rivero PRICER LAB BLOOD ORDERABLES Fin al Result [facility] [address] [place] [address] * Legionella antigen urine, EIA (03/24/2024 11:09 PM EST) [facility] Legionella Antigen, Ur Negative Negative 03/25/2024 12:53 AM EST [facility] Urine Urine specimen from urethra [...] ORDERABLES Fin al Result Performing Organization Address City/[facility]/ZIP Co de Phone Number [facility] [address] [place] [address], [place] [phone] * Lactate, with Reflex (03/24/2024 8:23 PM EST) LACTIC ACID 0.8 0.4 - 2.0 mmol/L LAB CHEMISTRY METHOD 03/24/2024 9:05 PM EST [facility] Blood Venous blood specimen / Unknown Venipuncture / Unknown 03/24/2024 8:23 PM EST 03/24/2024 8:28 PM EST Loren SUAREZ LAB BLOOD ORDERABLES Final Resul t [facility] [address] [place] [address], [place] [phone] * Troponin I high sensitivity (03/24/2024 7:11 PM EST) Only the most recent of2 resultswithin the time period is included. High Sensitivity Troponin I <3 <=54 ng/L LAB CHEMISTRY METHOD 03/24/2024 8:13 PM EST [facility] Blood Venous blood specimen / Unknown Venipuncture / Unknown 03/24/2024 7:11 PM EST 03/24/2024 7:45 PM EST Narrative [facility] - 03/24/2024 8:13 PM EST High levels of biotin in samples may falsely decrease hsTroponin values. ??Use caution when interpreting hsTroponin results in patients taking biotin who exhibit renal impairment (eGFR <60) or in patients taking more than 20 mg/day of biotin. Loren SUAREZ LAB BLOOD ORDERABLES Final Resul t [facility] [facility] [address] [place] [address], [place] [phone] from Last 3 Months Insurance MEDICARE MEDICAID [...] currently active code status orders. Care Teams Marine Architect Relationship Specialty Start Date End Date Donna Romero MD [address] [place] [address] PCP - General Internal Medicine 10/30/18
--- OUTSIDE RECORDS SUMMARY | 2024-04-19 16:57 | XMS_ITS | Encounter Summary ---
Author Organization [facility] Address [address] [place] [address] Care Team Providers Care Vessel Slag Worker Name Role Phone Donna Romero MD Primary Care Provider [phone] Reason for Referral * Therapy (Routine) - Authorized Specialty Diagnoses / Procedures Referred By Contac t Referred To Contact Pulmonology Diagnoses Chronic obstructive pulmonary disease, unspecified COPD type ([facility]) Procedures Pulmonary function testing: Spirometry with Bronchodilator, Carbon Monoxide Diffusing Capacity Ana Flaherty MD [address] [address] Phone: tel: fax: [facility] [address] [address] Phone: tel: fax: Referral ID Status Reason Start Date Expiration Date V isits Requested Visits Authorized [id number] Authorized 04/12/2024 04/12/2025 1 1 Reason for Visit * Reason Comments COPD Pneumonia Encounter Details Date Type Department Care Team ([facility] st Contact Info) Description 04/12/2024 8:30 AM EST [facility] [address] [phone] Ana Flaherty MD [address] [address] Chronic obstructive pulmonary disease, unspecified COPD type [...] care for your loved ones. For example, children's tutor or elderly care for an older adult? [...] the skin every 30 (thirty) days. [DISCONTINUED] cdaetihqfwl-fmpuddubozlb-iagcbjtuxi (Trelegy Ellipta) 100-62.5-25 mcg inhaler Inhale1 puff [...] pulmonary disease, unspecified COPD type ([facility]) J44.9 496 Pulmonary function testing: [...] Description 07/09/2024 10:30 AM EDT Appointment [facility] CT Scan [address] [place] [address] 07/19/2024 9:00 AM EDT Ancillary Procedure [facility] - [place] [address] [phone] Adarsh Henriquez 07/19/2024 10:00 AM EDT [facility] [address] [phone] Ana Flaherty MD [address] [address] Scheduled Orders Name Type Priority Associated Diagnoses Orde r Schedule Pulmonary function testing: Spirometry with Bronchodilator, Carbon Monoxide Diffusing Capacity PFT Routine Chronic obstructive pulmonary disease, unspecified COPD type ([facility]) 1 Occurrences starting 04/12/2024 until 04/12/2025 documented [...] documented as of this encounter Care Teams Vessel Slag Worker Relationship Specialty Start Date End Date Donna Romero MD [address] [place] [address] PCP - General Internal Medicine 10/30/18 documented as of this encounter
--- OUTSIDE RECORDS SUMMARY | 2024-04-19 16:57 | XMS_ITS | Encounter Summary ---
Author Organization [facility] Address [address] [place] [place] [address] Care Team Providers Care Canvas Worker Name Role Phone Donna Romero Md, MD Primary Care Provider Unavailable Mannie Morillo MD Unavailable Josep Givens PA-C Unavailable [phone] Reason for Visit * Reason Onset Date Comments Error 07/11/2020 Encounter Details Date Type Department Care Team Description 07/11/2020 Telephone Adult Medicine [address] [address] Nargis Villagomez MD Error Social History Tobacco Use Types Packs/Day Years [...] or suspected to have Coronavirus / COVID-19? No / Unsure 06/17/2020 8:55 AM EDT documented as of this encounter Miscellaneous Notes * Telephone Encounter - Denzel Grijalva L.P.N. - 07/11/2020 10:31 AM EDT Spoke with daughter she state she has an outside PCP doesn't come here * Telephone Encounter - Kellie Arredondo - 07/11/2020 10:27 AM EDT Opened in error documented in this encounter Plan of Treatment Not on file documented as of this encounter Visit Diagnoses Not on filedocumented in this encounter Care Teams Canvas Worker Relationship Specialty Start Date End Date Donna Romero MD, MD PCP - General Internal Medicine 07/11/20 Mannie Morillo MD Specialist Lung Cancer Music Professor 06/03/21 Josep Givens PA-C [address] [place] [phone] Specialist Thoracic Surgery 07/08/22 documented as of this encounter
--- OUTSIDE RECORDS SUMMARY | 2024-04-19 16:57 | XMS_ITS | Encounter Summary ---
Author Organization [facility] Address [address] [facility] [place] [address] Care Team Providers Care Sorting Livestock Worker Name Role Phone Donna Romero Md, MD Primary Care Provider Unavailable Donna Romero Md, MD Primary Care Provider Unavailable Mannie Morillo MD Unavailable Josep Givens PA-C Unavailable [phone] Reason for Visit * Reason Onset Date Comments Faxed Order 02/19/2020 Encounter Details Date Type Department Care Team Description 02/19/2020 Telephone Internal Medicine - [address], [address] [place] [address] Donna Romero MD, MD Faxed Order Social [...] on filedocumented in this encounter Care Teams Sorting Livestock Worker Relationship Specialty Start Date End Date Donna Romero MD, MD PCP - General Internal Medicine 10/30/18 07/10/20 Donna Romero MD, PCP - General Internal Medicine 07/11/20 Mannie Morillo MD Specialist Lung Cancer C D Stripper 06/03/21 Josep Givens PA-C [address] [place] [phone] Specialist Thoracic Surgery 07/08/22 documented as of this encounter
--- OUTSIDE RECORDS SUMMARY | 2024-04-19 16:57 | XMS_ITS | Encounter Summary ---
Author Organization [facility] Address [address] [facility] [place] [address] Care Team Providers Care Design Assistant Name Role Phone Donna Romero Md, MD Primary Care Provider Unavailable Donna Romero Md, MD Primary Care Provider Unavailable Mannie Morillo MD Unavailable Josep Givens PA-C Unavailable [phone] Encounter Details Date Type Department Care Team Description 06/03/2020 Hospital Medical Records [address] [place] [address] Mannie Morillo MD [address] [place] [id number] Social History Tobacco Use Types Packs/Day Years [...] on filedocumented in this encounter Care Teams Design Assistant Relationship Specialty Start Date End Date Donna Romero MD, MD PCP - General Internal Medicine 10/30/18 07/10/20 Donna Romero MD, PCP - General Internal Medicine 07/11/20 Mannie Morillo MD Specialist Lung Cancer Gastroenterologist 06/03/21 Josep Givens PA-C [address] [place] [phone] Specialist Thoracic Surgery 07/08/22 documented as of this encounter
--- OUTSIDE RECORDS SUMMARY | 2024-04-19 16:57 | XMS_ITS | Encounter Summary ---
Author Organization [facility] Address [address] [place] [address] Care Team Providers Care Pantographer Name Role Phone Donna Romero MD Primary Care Provider [phone] Reason for Visit * Reason Comments Shortness of Breath D/c on 03/25 with PNA , chest xray ? Fluid in lungs * Auth/Cert (Routine) Specialty Diagnoses / Procedures Referred By Contthomas t Referred To Contact Diagnoses Hypotension Procedures [facility]OBS CARE ADMIT/DISCHARGE SAME DATE MODERATE LEVEL Demarco Hunter MD [address] [place], [place] [id number] Phone: tel: fax: [facility] Emergency [address] [place] [address] Phone: tel: Referral ID Status Reason Start Date Expiration Date Visits Re quested Visits Authorized [id number] 1 1 Encounter Details Date Type Department Care Team (Late st Contact Info) Description 04/04/2024 8:25 AM EST - 04/07/2024 1:21 PM EST Emergency [facility] Intermediate Care Unit [address] [place] [address] Saray Darden DO [address] [place] [address] Adam Hart MD [address] [place] [address] Demarco Hunter MD [address] [place] [address] Piyush Hallman MD [address] [place] [address] COPD exacerbation (CMS/HCC) (Primary Dx); Hypotension, unspecified [...] for your loved ones. For example, child health associate or elderly care for an older adult? [...] of Present Illness Hypotension [I95.9] COPD exacerbation ([facility]) [J44.1] Hypotension, unspecified hypotension type [...] infected. EKG showednormal sinus rhythm with short LA, no significant change from prior, 86 bpm. [...] L home oxygen, former smoker quit 1month KNUCKLE BENDER, lung cancer s/p right upper lobectomy, GERD, [...] wheezing. Patient has outpatient follow up with copying machine repairer. Continue with albuterol, Trelegy, Azithromycin and prednisone taper. May be a candidate for Daliresp, will defer to copying machine repairer. CT chest shows no acute findings, no [...] Date: 04/04/2024 10:57 ET Worksta tion ID: [id number] Transcribed By: Self Edit Transcribed Date: 04/04/2024 [...] Signed Date: 04/04/2024 09:08 ET Workstation ID: [id number] Transcribed By: Self Edit Transcribed Date: 04/04/2024 [...] Trelegy Ellipta 100-62.5-25 mcg inhaler Generic drug: jmauewgtdpy-vpgrzspnqquc-vvihbzijmr Inhale 1 puff (100 mcg total) by mouth 1 (one) time each day. STOP taking these medications cefpodoxime 200 mg tablet Commonly known as: VANTIN doxycycline 100 mg capsule Commonly known as: VIBRAMYCIN Where to Get Your Medications These medications were sent to [id number] - [place] - [address] [facility] [address] [place] [address] azithromycin 250 mg tablet guaiFENesin 600 mg [...] 04/12/2024 8:30 AM Ana Flaherty MD [facility] @DCLABSOTHER@ Test Results Pending at [...] through Care Everywhere. * COPD Exacerbation Plan (Hebrew) documented in this encounter Medications at Time [...] crush, chew, or split. 20 each 04/06/2024 predniSONE (DELTASONE) 20 mg tablet Take 2 [...] for 3 days. 15 each 04/06/2024 5 fluticasone-umec lidinium-vilante rol (Trelegy [...] times a day. 60 each 04/07/2024 5 atorvastatin (LIPITOR) 10 mg tablet Take 1 tablet (10 mg total) by mouth at bedtime. 04/05/2024 predniSONE (DELTASONE) 20 mg tablet Take 2 [...] a 68 y.o. female : 1955 MR#: [id number] ASSESSMENT & PLAN Assessment/Plan Principal Problem: Weakness generalized Active Problems: COPD exacerbation ([facility]) Hypotension Jamila Ramírez is a 68 y.o. female who has history of COPD on 2 L home oxygen, former smoker quit 1month KNUCKLE BENDER, lung cancer s/p right upper lobectomy, GERD, depression, hyperlipidemia, osteoporosis. Recent admission 03/24-03/25 for COPD exacerbation and multifocal pneumonia. [facility], increased nonproductive [...] Signed Date: 04/04/2024 10:57 ET Workstation ID: [id number] Transcribed By: Self Edit Transcribed Date: 04/04/2024 [...] Signed Date: 04/04/2024 09:08 ET Workstation ID: [id number] Transcribed By: Self Edit Transcribed Date: 04/04/2024 [...] Relationship) for DC Planning Katerine Dickens (Daughter) [phone] (Home Phone) Living Arrangements Children Type of Residence Private residence Assistive Devices Walker;Oxygen Support Systems Children Medication Coverage Has Med Coverage Under Insurance Plan Yes Medication Affordability No concerns related to payment for meds Anticipated Discharge Needs Home Health RN;PT Discipline following for SNF placement Private Banker Informed Choice Informed Choice Given? Yes Transportation Transportation at discharge Family ICC met w Pt at bed side and confirmed demographics. GEM: 04/06 Barriers: hypotension, DuoNeb, 125 mg IV Solu-Medrol, vancomycin, ceftriaxone and 25 g of albumin, IVF, PT eval Dispo: [employer] for nocturnal O2, Daughter to bring in a portable tank for D/C. * Nataly Jazmin - 04/05/2024 2:26 PM EST [facility] Physical Therapy Evaluation & Treatment [...] a 68 y.o. female admitted to [facility] on 04/04/2024. Patient Active Problem List Diagnosis COPD exacerbation (CMS/[facility]) Cyst of mediastinum Depression Hiatal hernia Nocturnal hypoxia Ventral hernia without obstruction or gangrene Multifocal pneumonia Hypotension Weakness generalized Past Medical History: Diagnosis Date COPD (chronic obstructive pulmonary disease) (CMS/HCC) DX:COPD (chronic obstructive pulmonary disease) ([facility]) Depression 04/24/2017 DX:Depression Dysphagia DX:Dysphagia Esophageal reflux DX:Esophageal reflux Hiatal hernia DX:Hiatal hernia Lung cancer (CMS/HCC) DX:Lung cancer (HCC) Nocturnal hypoxia 04/24/2017 DX:Nocturnal hypoxia Ventral hernia without obstruction or gangrene DX:Ventral hernia without obstruction or gangrene Past Surgical History: Procedure Laterality Date OTHER SURGICAL HISTORY PROCEDURE: LA RMVL LUNG OTH/THN PNUMEC RESXN-PLCTJ EMPHY LUNG OTHER SURGICAL HISTORY Right 06/03/2020 PROCEDURE: LA RESCJ&BRONCHOPLASTY PFRMD TM LOBEC/SGMECTOMY; COMMENT: RUL Wedge [...] of Steps: 5 Prior Function Level of [place]: Independent with mobility and functional transfers Ambulation [...] of Steps 5 Prior Function Level of [place] Independent with mobility and functional transfers Ambulation [...] a 68 y.o. female admitted to [facility] on 04/04/2024 for Hypotension [I95.9] COPD exacerbation ([facility]) [J44.1] Hypotension, unspecified hypotension type [...] a 68 y.o. female : 1955 MR#: [id number] ASSESSMENT & PLAN Assessment/Plan Principal Problem: Weakness generalized Active Problems: COPD exacerbation ([facility]) Hypotension Jamila Ramírez is a 68 y.o. female who has history of COPD on 2 L home oxygen, former smoker quit 1month KNUCKLE BENDER, lung cancer s/p right upper lobectomy, GERD, [...] Signed Date: 04/04/2024 10:57 ET Workstation ID: [id number] Transcribed By: Self Edit Transcribed Date: 04/04/2024 [...] Signed Date: 04/04/2024 09:08 ET Workstation ID: [id number] Transcribed By: Self Edit Transcribed Date: 04/04/2024 [...] infectious concerns): [] Yes / [x] No Riding Double: [x] Yes / [] No If YES, Cardiac Rhythm: [x] NSR, [] SB, [] ST, [] A-FIB, [] A-Flutter, [] Pacemaker, [] 1st Degree HB, [] 2nd Degree HB, [] 3rd Degree HB Reason for Riding Double: VS: Visit Vitals BP 97/64 (BP Location: [...] at 75/hr. Submitted by and Phone Extension: [phone] Blessing Caro RN * Georgia Abbasi RN [...] disease) (CMS/HCC) DX:COPD (chronic obstructive pulmonary disease) ([facility]) ??? Depression 04/24/2017 DX:Depression ??? Dysphagia DX:Dysphagia ??? Esophageal reflux DX:Esophageal reflux ??? Hiatal hernia DX:Hiatal hernia ??? Lung cancer (CMS/HCC) DX:Lung cancer (HCC) ??? Nocturnal hypoxia 04/24/2017 DX:Nocturnal hypoxia ??? Ventral hernia without obstruction or gangrene DX:Ventral hernia without obstruction or gangrene Past Surgical History: Procedure Laterality Date ??? OTHER SURGICAL HISTORY PROCEDURE: LA RMVL LUNG OTH/THN PNUMEC RESXN-PLCTJ EMPHY LUNG ??? OTHER SURGICAL HISTORY Right 06/03/2020 PROCEDURE: LA RESCJ&BRONCHOPLASTY PFRMD TM LOBEC/SGMECTOMY; COMMENT: RUL Wedge [...] to 10 days. 600 mL 0 ??? choctwlwnun-qzgiygucnaag-odkluvvruh (Trelegy Ellipta) 100-62.5-25 mcg inhaler Inhale into [...] (*) VENOUS BLOOD GAS - Abnormal pH, Tahnh 7.43 (*) pCO2, Thanh 46 pO2, Thanh [...] REFLEX MICROSCOPIC AND CULTURE - Abnormal Specific [place] Urine 1.027 pH, Urine 6.5 Leukocytes, Urine [...] Detected Narrative: Testing was performed using the [employer] Respiratory Pathogen PCR Assay. All results must [...] Procedure Abnormality Status --------- ------ CBC auto differential[[id number]] Abnormal Final result Please view results for these tests on the individual orders. URINALYSIS WITH REFLEX MICROSCOPIC AND CULTURE Narrative: The following orders were created for panel order Urinalysis with reflex microscopic and culture. Procedure Abnormality Status --------- ------ Urinalysis with reflex ...[[id number]] Abnormal Final result Rader urine culture tube[[id number]] In process Please view results for these [...] Signed Date: 04/04/2024 10:57 ET Workstation ID: [id number] Transcribed By: Self Edit Transcribed Date: 04/04/2024 [...] Signed Date: 04/04/2024 09:08 ET Workstation ID: [id number] Transcribed By: Self Edit Transcribed Date: 04/04/2024 [...] IVPB (1 g intravenous New Bag 04/04/24 5353) albumin human 25 % infusion 25 g (has no administration in time range) sodium chloride 0.9 % bolus 1,000 mL (1,000 mL intravenous New Bag 04/04/24 3634) ipratropium-albuteroL (DUONEB) 0.5-2.5 mg/3 mL nebulizer solution [...] Impressions as of 04/04/24 1241 COPD exacerbation (CMS/[facility]) Hypotension, unspecified hypotension type Procedures [...] Dietary nutrition supplements Three times daily (TID); [facility]; Standard Oral Supplement Continuous Comments: vanilla Question Answer Comment Frequency Three times daily (TID) Location [facility] Supplements Standard Oral Supplement 04/06/24 1034 04/04/24 1241 Adult diet [facility]; General; Regular Diet effective now Question Answer Comment Location [facility] Diet Type (req) General General Diet Regular 04/04/24 1240 History of presenting illness: Patient is a 68 y.o. female with a history of Past Medical History: Diagnosis Date COPD (chronic obstructive pulmonary disease) ([facility]) DX:COPD (chronic obstructive pulmonary disease) ([facility]) Depression 04/24/2017 DX:Depression Dysphagia DX:Dysphagia Esophageal reflux DX:Esophageal reflux Hiatal hernia DX:Hiatal hernia Lung cancer (CMS/HCC) DX:Lung cancer (HCC) Nocturnal hypoxia 04/24/2017 DX:Nocturnal hypoxia Ventral hernia without obstruction or gangrene DX:Ventral hernia without obstruction or gangrene Past Surgical History: Procedure Laterality Date OTHER SURGICAL HISTORY PROCEDURE: LA RMVL LUNG OTH/THN PNUMEC RESXN-PLCTJ EMPHY LUNG OTHER SURGICAL HISTORY Right 06/03/2020 PROCEDURE: LA RESCJ&BRONCHOPLASTY PFRMD TM LOBEC/SGMECTOMY; COMMENT: RUL Wedge w/ completetion RUL lobectomy admitted 04/04/2024 with Weakness generalized. Food/Nutrition History: Previously prescribed diets: (pt denies dificulty chewing/swallowing, food allergeis, food insecurities. pt lost 6 pounds in the past month) Self-selected diet(s) followed: no added salt, no concentrated sweets Appetite KNUCKLE BENDER: Good Intake KNUCKLE BENDER: Stable Nourishment Type: Ensure Frequency: Daily Weight [...] day. Total Energy Estimated Needs: based on [id number] calories (35-40 lakisha/kg), 46-57 g protien (1.2-1.5 g/kg), 2178-4115 ml fluid (35-40 ml/kg) Height: 149.9 cm (59.02 ) Weight Used for Equation Calculations: (!) 38.2 kg (84 lb 3.5 oz) Thomas-Lorraine Equation: [address] [place] [address] Equation (Overweight or Obese Patients): [...] Description 07/09/2024 10:30 AM EDT Appointment [facility] CT Scan [address] [place] [address] 07/19/2024 9:00 AM EDT Ancillary Procedure Pulmonolgy - [place] [address] [facility] [address] [place] [address] Adarsh Henriquez 07/19/2024 10:00 AM EDT [facility] [address] [facility] [address] [place] [id number] Ana Flaherty MD [address] [facility] [address] [place] [address] documented as of this encounter Procedures Procedure [...] * (ABNORMAL) Magnesium (04/07/2024 6:01 AM EST) [facility] Magnesium 1.7(L) 1.9 - 2.6 mg/dL LAB CHEMISTRY METHOD 04/07/2024 7:27 AM [facility] Blood Venous blood specimen / Unknown Venipuncture / Unknown 04/07/2024 6:01 AM EST 04/07/2024 6:39 AM EST Piyush Hallman MD LAB BLOOD ORDERABLES Final Re sult [facility] [address] [place] [address], [place] [phone] * (ABNORMAL) Basic metabolic panel (04/07/2024 6:01 AM EST) [facility] Sodium 139 133 - 145 mmol/L LAB CHEMISTRY METHOD 04/07/2024 7:46 AM [facility] Potassium 3.6 3.5 - 5.5 mmol/L LAB CHEMISTRY METHOD 04/07/2024 7:46 AM [facility] Chloride 107 96 - 110 mmol/L LAB CHEMISTRY METHOD 04/07/2024 7:46 AM [facility] CO2 27 21 - 32 mmol/L LAB CHEMISTRY METHOD 04/07/2024 7:46 AM [facility] Anion Gap 5 3 - 11 LAB CHEMISTRY METHOD 04/07/2024 7:46 AM [facility] Glucose 100 70 - 100 mg/dL LAB CHEMISTRY METHOD 04/07/2024 7:46 AM [facility] BUN 16 5 - 25 mg/dL LAB CHEMISTRY METHOD 04/07/2024 7:46 AM [facility] Creatinine 0.35(L) 0.50 - 1.10 mg/dL LAB CHEMISTRY METHOD 04/07/2024 7:46 AM [facility] eGFR 111 >=60 mL/min/1. 73m2 LAB CHEMISTRY METHOD 04/07/2024 7:46 AM [facility] Comment:Calculation based on the??Chronic Kidney Disease Epidemiology Collaboration (CKD-EPI) equation refit??without adjustment for race. BUN/Creatinine Ratio 45.7 LAB CHEMISTRY METHOD 04/07/2024 7:46 AM [facility] Calcium 7.3(L) 8.5 - 10.5 mg/dL LAB CHEMISTRY METHOD 04/07/2024 7:46 AM [facility] Blood Venous blood specimen / Unknown Venipuncture / Unknown 04/07/2024 6:01 AM EST 04/07/2024 6:39 AM EST us Piyush Hallman MD LAB BLOOD ORDERABLES Final Re sult Performing Organization Address City/[facility]/ZIP Co de Phone Number [facility] [address] [place] [address], [place] [phone] * Lavender tube (04/07/2024 5:58 AM EST) Extra Tube Hold for add-ons. 04/07/2024 8:01 AM [facility] Comment:Auto resulted. Blood Venous blood specimen / Unknown 04/07/2024 5:58 AM EST 04/07/2024 6:40 AM EST us Piyush Hallman MD LAB BLOOD ORDERABLES Final Re sult [facility] [address] [place] [address], [place] [phone] * Procalcitonin (04/05/2024 4:08 AM EST) Procalcitonin <0.02 <=0.16 ng/mL LAB CHEMISTRY METHOD 04/05/2024 11:53 AM EST [facility] Blood Venous blood specimen / Unknown Venipuncture / Unknown 04/05/2024 4:08 AM EST 04/05/2024 4:40 AM EST Narrative [facility] - 04/05/2024 11:53 AM EST [...] ORDERABLES Final Re sult Performing Organization Address City/[facility]/ZIP Co de Phone Number [facility] [address] [place] [address], * Phosphorus (04/05/2024 4:08 AM EST) [facility] Signature Phosphorus 2.6 2.5 - 4.5 mg/dL LAB CHEMISTRY METHOD 04/05/2024 5:16 AM EST [facility] Blood Venous blood specimen / Unknown Venipuncture / Unknown 04/05/2024 4:08 AM EST 04/05/2024 4:40 AM EST Cynthia SUAREZ LAB BLOOD ORDERABLES Final Result [facility] [address] [place] [address], [place] [phone] * (ABNORMAL) Magnesium (04/05/2024 4:08 AM EST) Pathologist [facility] Magnesium 1.7(L) 1.9 - 2.6 mg/dL LAB CHEMISTRY METHOD 04/05/2024 5:15 AM EST [facility] Blood Venous blood specimen / Unknown Venipuncture / Unknown 04/05/2024 4:08 AM EST 04/05/2024 4:40 AM EST Cynthia SUAREZ LAB BLOOD ORDERABLES Final Result [facility] [address] [place] [address], [place] [phone] * (ABNORMAL) Basic metabolic panel (04/05/2024 4:08 AM EST) [facility] Sodium 142 133 - 145 mmol/L LAB CHEMISTRY METHOD 04/05/2024 5:15 AM [facility] Potassium 4.0 3.5 - 5.5 mmol/L LAB CHEMISTRY METHOD 04/05/2024 5:15 AM [facility] Chloride 110 96 - 110 mmol/L LAB CHEMISTRY METHOD 04/05/2024 5:15 AM [facility] CO2 25 21 - 32 mmol/L LAB CHEMISTRY METHOD 04/05/2024 5:15 AM [facility] Anion Gap 7 3 - 11 LAB CHEMISTRY METHOD 04/05/2024 5:15 AM [facility] Glucose 131(H) 70 - 100 mg/dL LAB CHEMISTRY METHOD 04/05/2024 5:15 AM [facility] BUN 19 5 - 25 mg/dL LAB CHEMISTRY METHOD 04/05/2024 5:15 AM [facility] Creatinine 0.43(L) 0.50 - 1.10 mg/dL LAB CHEMISTRY METHOD 04/05/2024 5:15 AM EST [facility] eGFR 105 >=60 mL/min/1. 73m2 LAB CHEMISTRY METHOD 04/05/2024 5:15 AM EST [facility] Comment:Calculation based on the??Chronic Kidney Disease Epidemiology Collaboration (CKD-EPI) equation refit??without adjustment for race. BUN/Creatinine Ratio 44.2 LAB CHEMISTRY METHOD 04/05/2024 5:15 AM [facility] Calcium 8.1(L) 8.5 - 10.5 mg/dL LAB CHEMISTRY METHOD 04/05/2024 5:15 AM [facility] Blood Venous blood specimen / Unknown Venipuncture / Unknown 04/05/2024 4:08 AM EST 04/05/2024 4:40 AM EST Demarco Hunter MD LAB BLOOD ORDERABLES Final Res ult [facility] [address] [place] [address], [place] [phone] * B-type natriuretic peptide (04/04/2024 10:19 AM EST) BNP 4 <=100 pcg/mL LAB CHEMISTRY METHOD 04/04/2024 11:21 AM EST [facility] Blood Venous blood specimen / Unknown Venipuncture / Unknown 04/04/2024 10:19 AM EST 04/04/2024 10:30 AM EST Loren SUAREZ LAB BLOOD ORDERABLES Final Resul t [facility] [address] [place] [address], [place] [phone] * Blood Culture, Peripheral #2 (04/04/2024 10:19 AM EST) Culture, Blood No growth at 5 days 04/09/2024 11:01 AM EST [facility] Blood Venous blood specimen / Unknown Venipuncture / Unknown 04/04/2024 10:19 AM EST 04/04/2024 10:30 AM EST [facility] LAB MICROBIOLOGY - GENERAL ORDER ERAN Final Result Performing Organization Address [facility]/ZIP Co de Phone Number [facility] [address] [place] [address], [place] [phone] * Blood Culture, Peripheral #1 (04/04/2024 10:19 AM EST) Culture, Blood No growth at 5 days 04/09/2024 11:01 AM EST [facility] Blood Venous blood specimen / Unknown Venipuncture / Unknown 04/04/2024 10:19 AM EST 04/04/2024 10:30 AM EST [facility] MICROBIOLOGY - GENERAL ORDER ERAN Final Result Performing Organization Address [facility] de Phone Number [facility] [address] [place] [address], [place] [phone] * CT Angio Chest wo and/or w [...] Signed Date: 04/04/2024 10:57 ET Workstation ID: [id number] Transcribed By: Self Edit Transcribed Date: 04/04/2024 [...] Signed Date: 04/04/2024 10:57 ET Workstation ID: [id number] Transcribed By: Self Edit Transcribed Date: 04/04/2024 10:27 ET Loren SUAREZ IM CT PROCEDURES Final Result * Culture urine (04/04/2024 9:52 AM EST) Culture, Urine No growth 04/05/2024 11:05 AM EST [facility] Urine Urine specimen obtained by clean catch procedure / Unknown Non-blood Collection / Unknown 04/04/2024 9:52 AM EST 04/04/2024 10:45 AM EST [facility] [place] SU[facility] LAB MICROBIOLOGY - GENERAL ORDER ERAN Final Result Performing Organization Address [facility]/ZIP Co de Phone Number [facility] [address] [place] [address], [place] [phone] * Rader urine culture tube (04/04/2024 9:52 AM EST) [facility] Extra Tube Hold for add-ons. 04/04/2024 12:02 PM [facility] Comment:Auto resulted. Urine Urine specimen obtained by clean catch procedure / Unknown Non-blood Collection / Unknown 04/04/2024 9:52 AM EST 04/04/2024 10:31 AM EST Loren SUAREZ LAB URINE ORDERABLES Final Resul t Performing Organization Address [facility]/ZIP Co de Phone Number [facility] [address] [place] [address], [place] [phone] * (ABNORMAL) Urinalysis with reflex microscopic and culture (04/04/2024 9:52 AM EST) [facility] Specific [place] Urine 1.027 1.003 - 1.030 LAB URINALYSIS - AUTOMATED METHOD 04/04/2024 10:45 AM [facility] pH, Urine 6.5 5.0 - 8.0 pH LAB URINALYSIS - AUTOMATED METHOD 04/04/2024 10:45 AM [facility] Leukocytes, Urine Trace(A) Negative LAB URINALYSIS - AUTOMATED METHOD 04/04/2024 10:45 AM [facility] Nitrite, Urine Negative Negative LAB URINALYSIS - AUTOMATED METHOD 04/04/2024 10:45 AM [facility] Protein, Urine Negative <=Trace mg/dL LAB URINALYSIS - AUTOMATED METHOD 04/04/2024 10:45 AM [facility] Glucose, Urine Negative Negative mg/dL LAB URINALYSIS - AUTOMATED METHOD 04/04/2024 10:45 AM [facility] Ketones, Urine Trace(A) Negative mg/dL LAB URINALYSIS - AUTOMATED METHOD 04/04/2024 10:45 AM [facility] Urobilinogen, Urine 0.2 0.2 - 1.0 mg/dL LAB URINALYSIS - AUTOMATED METHOD 04/04/2024 10:45 AM [facility] Bilirubin, Urine Negative Negative LAB URINALYSIS - AUTOMATED METHOD 04/04/2024 10:45 AM [facility] Blood, Urine Negative Negative LAB URINALYSIS - AUTOMATED METHOD 04/04/2024 10:45 AM [facility] RBC, Urine 4.3(H) 0 - 4 /HPF LAB URINALYSIS - AUTOMATED METHOD 04/04/2024 10:45 AM [facility] WBC, Urine 4.8(H) 0 - 4 /HPF LAB URINALYSIS - AUTOMATED METHOD 04/04/2024 10:45 AM [facility] Squamous Epithelial, Urine 64(H) 0 - 60 /LPF LAB URINALYSIS - AUTOMATED METHOD 04/04/2024 10:45 AM [facility] Bacteria, Urine Few(A) Negative /HPF LAB URINALYSIS - AUTOMATED METHOD 04/04/2024 10:45 AM [facility] Hyaline Casts, Urine 1.2 0 - 3 /LPF LAB URINALYSIS - AUTOMATED METHOD 04/04/2024 10:45 AM [facility] Urine Urine specimen obtained by clean catch procedure / Unknown Non-blood Collection / Unknown 04/04/2024 9:52 AM EST 04/04/2024 10:31 AM EST us Loren SUAREZ LAB URINE ORDERABLES Final Resul t [facility] [address] [place] [address], * Respiratory virus panel molecular study (04/04/2024 9:45 AM EST) Pathologist [facility] Adenovirus Detection by PCR Not Detected Not Detected LAB MICROBIOLOGY METHOD 04/04/2024 10:55 AM EST [facility] Influenza A PCR Not Detected Not Detected LAB MICROBIOLOGY METHOD 04/04/2024 10:55 AM EST [facility] Influenza B PCR Not Detected Not Detected LAB MICROBIOLOGY METHOD 04/04/2024 10:55 AM EST [facility] Coronavirus 229E Not Detected Not Detected LAB MICROBIOLOGY METHOD 04/04/2024 10:55 AM EST [facility] Coronavirus HKU1 Not Detected Not Detected LAB MICROBIOLOGY METHOD 04/04/2024 10:55 AM [facility] Coronavirus OC43 Not Detected Not Detected LAB MICROBIOLOGY METHOD 04/04/2024 10:55 AM [facility] Coronavirus NL63 Not Detected Not Detected LAB MICROBIOLOGY METHOD 04/04/2024 10:55 AM EST [facility] Parainfluenza Virus 1 Not Detected Not Detected LAB MICROBIOLOGY METHOD 04/04/2024 10:55 AM [facility] Parainfluenza Virus 2 Not Detected Not Detected LAB MICROBIOLOGY METHOD 04/04/2024 10:55 AM [facility] Parainfluenza Virus 3 Not Detected Not Detected LAB MICROBIOLOGY METHOD 04/04/2024 10:55 AM [facility] Parainfluenza Virus 4 Not Detected Not Detected LAB MICROBIOLOGY METHOD 04/04/2024 10:55 AM EST [facility] RSV PCR Not Detected Not Detected LAB MICROBIOLOGY METHOD 04/04/2024 10:55 AM [facility] Human Metapneumovirus A and B Not Detected Not Detected LAB MICROBIOLOGY METHOD 04/04/2024 10:55 AM EST [facility] Rhinovirus/Entero virus Not Detected Not Detected LAB MICROBIOLOGY METHOD 04/04/2024 10:55 AM EST [facility] Bordetella pertussis Not Detected Not Detected LAB MICROBIOLOGY METHOD 04/04/2024 10:55 AM [facility] Bordetella parapertussis Not Detected Not Detected LAB MICROBIOLOGY METHOD 04/04/2024 10:55 AM EST [facility] Mycoplasma pneumo by PCR Not Detected Not Detected LAB MICROBIOLOGY METHOD 04/04/2024 10:55 AM EST [facility] Chlamydia pneumoniae Not Detected Not Detected LAB MICROBIOLOGY METHOD 04/04/2024 10:55 AM [facility] SARS COV-2 Not Detected Not Detected LAB MICROBIOLOGY METHOD 04/04/2024 10:55 AM [facility] Swab Both anterior nares / Unknown Non-blood Collection / Unknown 04/04/2024 9:45 AM EST 04/04/2024 9:53 AM EST [facility] - 04/04/2024 10:55 AM EST Testing was performed using the [employer] Respiratory Pathogen PCR Assay. All results must [...] MICROBIOLOGY - GENERAL ORDER ERAN Final Result [facility] [address] [place] [address], * Thyroid stimulating hormone with reflex to free t4 and free t3 (04/04/2024 9:19 AM EST) TSH 1.84 0.40 - 4.00 mcIU/mL LAB CHEMISTRY METHOD 04/04/2024 4:01 PM [facility] Blood Venous blood specimen / Unknown Venipuncture / Unknown 04/04/2024 9:19 AM EST 04/04/2024 9:53 AM EST Cynthia SUAREZ LAB BLOOD ORDERABLES Final Result [facility] [address] [place] [address], * (ABNORMAL) Comprehensive metabolic panel (04/04/2024 9:19 AM EST) Sodium 142 133 - 145 mmol/L LAB CHEMISTRY METHOD 04/04/2024 11:12 AM [facility] Potassium 4.6 3.5 - 5.5 mmol/L LAB CHEMISTRY METHOD 04/04/2024 11:12 AM [facility] Chloride 107 96 - 110 mmol/L LAB CHEMISTRY METHOD 04/04/2024 11:12 AM [facility] CO2 29 21 - 32 mmol/L LAB CHEMISTRY METHOD 04/04/2024 11:12 AM [facility] Anion Gap 6 3 - 11 LAB CHEMISTRY METHOD 04/04/2024 11:12 AM [facility] Glucose 78 70 - 100 mg/dL LAB CHEMISTRY METHOD 04/04/2024 11:12 AM [facility] BUN 30(H) 5 - 25 mg/dL LAB CHEMISTRY METHOD 04/04/2024 11:12 AM [facility] Comment:Results verified by repeat testing Creatinine 0.52 0.50 - 1.10 mg/dL LAB CHEMISTRY METHOD 04/04/2024 11:12 AM [facility] eGFR 101 >=60 mL/min/1. 73m2 LAB CHEMISTRY METHOD 04/04/2024 11:12 AM [facility] Comment:Calculation based on the??Chronic Kidney Disease Epidemiology Collaboration (CKD-EPI) equation refit??without adjustment for race. BUN/Creatinine Ratio 57.7 LAB CHEMISTRY METHOD 04/04/2024 11:12 AM [facility] Calcium 9.3 8.5 - 10.5 mg/dL LAB CHEMISTRY METHOD 04/04/2024 11:12 AM [facility] AST (SGOT) 24 10 - 42 unit/L LAB CHEMISTRY METHOD 04/04/2024 11:12 AM [facility] ALT (SGPT) 45 10 - 60 unit/L LAB CHEMISTRY METHOD 04/04/2024 11:12 AM [facility] Alkaline Phosphatase 84 42 - 121 unit/L LAB CHEMISTRY METHOD 04/04/2024 11:12 AM [facility] Total Protein 6.7 6.0 - 8.0 g/dL LAB CHEMISTRY METHOD 04/04/2024 11:12 AM [facility] Albumin 3.1(L) 3.2 - 5.0 g/dL LAB CHEMISTRY METHOD 04/04/2024 11:12 AM [facility] Total Bilirubin 0.7 0.0 - 1.4 mg/dL LAB CHEMISTRY METHOD 04/04/2024 11:12 AM [facility] Blood Venous blood specimen / Unknown Venipuncture / Unknown 04/04/2024 9:19 AM EST 04/04/2024 9:53 AM EST us Saray Darden DO LAB BLOOD ORDERABLES Elsa l Result [facility] [address] [place] [address], * Lactate (04/04/2024 9:19 AM EST) Lactate 1.0 0.4 - 2.0 mmol/L LAB CHEMISTRY METHOD 04/04/2024 10:28 AM [facility] Blood Venous blood specimen / Unknown Venipuncture / Unknown 04/04/2024 9:19 AM EST 04/04/2024 9:49 AM EST Saray Reyes Trell Darden DO LAB BLOOD ORDERABLES Elsa l Result Performing Organization Address [facility] Co de Phone Number [facility] [address] [place] [address], [place] [phone] * (ABNORMAL) Venous blood gas (04/04/2024 9:19 AM EST) Pathologist [facility] pH, Thanh 7.43(H) 7.32 - 7.42 pH 04/04/2024 9:53 AM EST [facility] pCO2, Thanh 46 41 - 51 mmHg 04/04/2024 9:53 AM EST [facility] pO2, Thanh 43(H) 25 - 40 mmHg 04/04/2024 9:53 AM [facility] HCO3, Venous 28.3(H) 22.0 - 26.0 mmol/L 04/04/2024 9:53 AM [facility] O2 Sat, Thanh 75.4 % 04/04/2024 9:53 AM [facility] Base Excess, Thanh 5.2(H) -2.0 - 2.0 mmol/L 04/04/2024 9:53 AM [facility] Blood Venous blood specimen / Unknown Venipuncture / Unknown 04/04/2024 9:19 AM EST 04/04/2024 9:53 AM EST Alvareznina Darden DO LAB BLOOD ORDERABLES Elsa l Result [facility] [address] [place] [address], [place] [phone] * (ABNORMAL) CBC auto differential (04/04/2024 9:19 AM EST) Pathologist [facility] WBC 8.4 4.8 - 10.8 K/mcL LAB HEMETOLOGY METHOD 04/04/2024 10:26 AM [facility] RBC 4.20 3.80 - 4.80 M/mcL LAB HEMETOLOGY METHOD 04/04/2024 10:26 AM [facility] Hemoglobin 12.8 11.5 - 16.0 g/dL LAB HEMETOLOGY METHOD 04/04/2024 10:26 AM [facility] Hematocrit 41.7 35.0 - 47.0 % LAB HEMETOLOGY METHOD 04/04/2024 10:26 AM [facility] MCV 98.8(H) 79.0 - 98.0 FL LAB HEMETOLOGY METHOD 04/04/2024 10:26 AM [facility] MCH 30.3 27.0 - 32.0 pcg LAB HEMETOLOGY METHOD 04/04/2024 10:26 AM [facility] MCHC 30.7(L) 32.0 - 37.0 g/dL LAB HEMETOLOGY METHOD 04/04/2024 10:26 AM [facility] RDW 14.2 11.0 - 15.0 % LAB HEMETOLOGY METHOD 04/04/2024 10:26 AM [facility] Platelets 298 130 - 400 K/mcL LAB HEMETOLOGY METHOD 04/04/2024 10:26 AM [facility] MPV 8.8 7.0 - 11.0 FL LAB HEMETOLOGY METHOD 04/04/2024 10:26 AM [facility] NRBC 0.0 <1.0 % LAB HEMETOLOGY METHOD 04/04/2024 10:26 AM [facility] NRBC Absolute 0.00 <0.10 K/mcL LAB HEMETOLOGY METHOD 04/04/2024 10:26 AM [facility] Neutrophils Relative 61.8 % LAB HEMETOLOGY METHOD 04/04/2024 10:26 AM [facility] Lymphocytes Relative 22.6 % LAB HEMETOLOGY METHOD 04/04/2024 10:26 AM [facility] Monocytes Relative 10.5 % LAB HEMETOLOGY METHOD 04/04/2024 10:26 AM [facility] Eosinophils Relative 2.0 % LAB HEMETOLOGY METHOD 04/04/2024 10:26 AM [facility] Basophils Relative 1.1 % LAB HEMETOLOGY METHOD 04/04/2024 10:26 AM [facility] Immature Granulocytes Relative 2.0 % LAB HEMETOLOGY METHOD 04/04/2024 10:26 AM [facility] Neutrophils Absolute 5.17 1.50 - 7.00 K/mcL LAB HEMETOLOGY METHOD 04/04/2024 10:26 AM [facility] Lymphocytes Absolute 1.89 1.00 - 5.00 K/mcL LAB HEMETOLOGY METHOD 04/04/2024 10:26 AM [facility] Monocytes Absolute 0.88 0.20 - 1.00 K/mcL LAB HEMETOLOGY METHOD 04/04/2024 10:26 AM [facility] Eosinophils Absolute 0.17 0.00 - 0.50 K/mcL LAB HEMETOLOGY METHOD 04/04/2024 10:26 AM [facility] Basophils Absolute 0.09 0.00 - 0.20 K/mcL LAB HEMETOLOGY METHOD 04/04/2024 10:26 AM [facility] Immature Granulocytes Absolute 0.17(H) 0.00 - 0.03 K/mcL LAB HEMETOLOGY METHOD 04/04/2024 10:26 AM [facility] Blood Venous blood specimen / Unknown Venipuncture / Unknown 04/04/2024 9:19 AM EST 04/04/2024 9:53 AM EST Saray Darden DO LAB BLOOD ORDERABLES Elsa l Result [facility] [address] [place] [address], [place] [phone] * ECG 12 lead (04/04/2024 9:10 AM EST) Ventricular Rate ECG 86 BPM GEMUSE Atrial Rate 86 BPM GEMUSE P-R Interval 106 ms GEMUSE QRS Duration 80 ms GEMUSE Q-T Interval 340 ms GEMUSE QTc 406 ms GEMUSE R [place] 53 degrees GEMUSE T [place] 60 degrees GEMUSE ECG Interpretation Sinus rhythm [...] Signed Date: 04/04/2024 09:08 ET Workstation ID: [id number] Transcribed By: Self Edit Transcribed Date: 04/04/2024 [...] Signed Date: 04/04/2024 09:08 ET Workstation ID: [id number] Transcribed By: Self Edit Transcribed Date: 04/04/2024 [...] - Provider: Yamini Tucker)1942 (Given - Provider: eJny Reyes) 0844 (Given - Provider: Yamini Tucker)2022 [...] documented as of this encounter Care Teams Pantographer Relationship Specialty Start Date End Date Donna Romero MD [address] [place] [address] PCP - General Internal Medicine 10/30/18 documented as of this encounter
--- OUTSIDE RECORDS SUMMARY | 2024-04-19 16:57 | XMS_ITS | Encounter Summary ---
Author Organization [facility] Address [address] [facility] [place] [address] Care Team Providers Care Professional Nursing Tutor Name Role Phone Donna Romero Md, MD Primary Care Provider Unavailable Donna Romero Md, MD Primary Care Provider Unavailable Mannie Morillo MD Unavailable Josep Givens PA-C Unavailable [phone] Encounter Details Date Type Department Care Team Description 06/13/2020 Acidizer Helper Report Medical Records [address] [place] [address] [place] PA-C [address] [phone] Social History Tobacco Use Types [...] on filedocumented in this encounter Care Teams Professional Nursing Tutor Relationship Specialty Start Date End Date Donna Romero MD, MD PCP - General Internal Medicine 10/30/18 07/10/20 Donna oRmero MD, PCP - General Internal Medicine 07/11/20 Mannie Morillo MD Specialist Lung Cancer Trailer Chief 4/27/22 Josep Givens PA-C [address] [place] [phone] Specialist Thoracic Surgery 07/08/22 documented as of this encounter
--- OUTSIDE RECORDS SUMMARY | 2024-04-19 16:57 | XMS_ITS | Encounter Summary ---
Author Organization [facility] Address [address] [facility] [place] [address] Care Team Providers Care Retort Fireman Name Role Phone Jorge Barth Primary Care Provider UnavailDonna Orlando Md, MD Primary Care Provider Unavailable Donna Romero Md, MD Primary Care Provider Unavailable Mannie Morillo MD Unavailable Josep Givens PA-C Unavailable [phone] Reason for Visit * Reason Onset Date Comments APPOINTMENT 08/18/2017 Encounter Details Date Type Department Care Team Description 08/18/2017 Telephone Pulmonology - [place] [address] [facility] [address] [place] [address] Ana Flaherty MD [address] [place] [address] APPOINTMENT Social History Tobacco Use Types Packs/Day Years [...] encounter Miscellaneous Notes * Telephone Encounter - Gina Viveros M.A. - 08/18/2017 9:[address] Flaherty will see patient with out test , but if the prior note said that they wanted the test before follow up with then she have to do the test before . * Telephone Encounter - [place] - 08/18/2017 8:43 AM EDT Patient recieved letter to schedule PFT and 6 min walk. Would you like this done prior to 10/31/17 appointment? documented in this encounter Plan of Treatment Not on file documented as of this encounter Visit Diagnoses Not on filedocumented in this encounter Care Teams Retort Fireman Relationship Specialty Start Date End Date Jorge Barth PCP - General 03/19/08 10/29/18 Donna Romero MD, MD PCP - General Internal Medicine 10/30/18 07/10/20 Donna Romero MD, MD PCP - General Internal Medicine 07/11/20 Mannie Morillo MD Specialist Lung Cancer Sausage Meat Trimmer 06/03/21 Josep Givens PA-C [address] [place] [phone] Specialist Thoracic Surgery 07/08/22 documented as of this encounter
--- OUTSIDE RECORDS SUMMARY | 2024-04-19 16:57 | XMS_ITS | Encounter Summary ---
Author Organization [facility] Address [address] [facility] [place] [address] Care Team Providers Care Computer Engineering Professor Name Role Phone Jorge Barth Primary Care Provider UnavailDonna Orlando Md, MD Primary Care Provider Unavailable Donna Romero Md, MD Primary Care Provider Unavailable Mannie Morillo MD Unavailable Josep Givens PA-C Unavailable [phone] Encounter Details Date Type Department Care Team Description 05/05/2017 Release of Information Medical Records [address] [place] [id number] Abstract, Provider Social History Tobacco Use Types [...] on filedocumented in this encounter Care Teams Computer Engineering Professor Relationship Specialty Start Date End Date Jorge Barth PCP - General 03/19/08 10/29/18 Donna Romero MD, MD PCP - General Internal Medicine 10/30/18 07/10/20 Donna Romero MD, MD PCP - General Internal Medicine 07/11/20 Mannie Morillo MD Specialist Lung Cancer Qualitative Executive Researcher 06/03/21 Josep Givens PA-C [address] [place] [phone] Specialist Thoracic Surgery 07/08/22 documented as of this encounter
--- OUTSIDE RECORDS SUMMARY | 2024-04-19 16:57 | XMS_ITS | Encounter Summary ---
Author Organization [facility] Address [address] [facility] [place] [address] Care Team Providers Care Radio Frequency Engineer Name Role Phone Donna Romero Md, MD Primary Care Provider Unavailable Mannie Morillo MD Unavailable Josep Givens PA-C Unavailable [phone] Reason for Visit * Reason Comments E-prescribe Rx Request Encounter Details Date Type Department Care Team Description 09/26/2023 Refill Pulmonology - [place] [address] [facility] [address] [place] [phone] Ana Flaherty MD [address] [place] [phone] E-prescribe Rx Request Social History Tobacco Use [...] * Telephone Encounter - Chad Garland - 09/26/2023 2:53 PM EDT Possible duplicate Vanda: 04/08/2023 Nov: 10/14/2023 documented in this encounter Plan of Treatment Not on file documented as of this encounter Visit Diagnoses Diagnosis Chronic obstructive pulmonary disease, unspecified COPD type (HCC) documented in this encounter Care Teams Radio Frequency Engineer Relationship Specialty Start Date End Date Donna Romero MD, MD PCP - General Internal Medicine 07/11/20 Mannie Morillo MD Specialist Lung Cancer Roller Picker 06/03/21 Josep Givens PA-C [address] [place] [phone] Specialist Thoracic Surgery 07/08/22 documented as of this encounter
--- OUTSIDE RECORDS SUMMARY | 2024-04-19 16:57 | XMS_ITS | Encounter Summary ---
Author Organization [facility] Address [address] [facility] [place] [address] Care Team Providers Care Vice President Marketing & Development Name Role Phone Donna Romero Md, MD Primary Care Provider Unavailable Mannie Morillo MD Unavailable Josep Givens PA-C Unavailable [phone] Reason for Visit * Reason Comments E-prescribe Rx Request Encounter Details Date Type Department Care Team Description 10/15/2022 Refill Pulmonology - [place] 175 [facility] [address] [place] [phone] Ana Flaherty MD [address] [place] [phone] E-prescribe Rx Request Social History Tobacco Use [...] (HCC) documented in this encounter Care Teams Vice President Marketing & Development Relationship Specialty Start Date End Date Donna Romero MD, MD PCP - General Internal Medicine 07/11/20 Mannie Morillo MD Specialist Lung Cancer Inventory Control Assistant 06/03/21 Josep Givens PA-C [address] [place] [phone] Specialist Thoracic Surgery 07/08/22 documented as of this encounter
== END ==
LOC: HO.HMCC 13:23
PROVIDERS: PCP Internal Medicine; Visit Provider Internal Medicine
DX: I95.9 Hypotension, unspecified (principal)

== ENCOUNTER 2024-05-10 09:05 | Outpatient (AMB) | payer MEDICAID, SELFPAY ==
--- OUTSIDE RECORDS SUMMARY | 2024-05-10 09:23 | XMS_ITS | Clinical Summary ---
Author Organization [facility] Address [address] [place] [phone] Phone Care Team Providers Care Bed Laster Name Role Phone Donna Romero MD Primary Care Provider Allergies No known active allergies Medications nabumetone (RELAFEN) 500 mg tablet Take 1 tablet (500 mg total) by mouth 2 (two) times a day. Active omeprazole (PriLOSEC) [address] capsule Take 1 capsule (20 mg total) by mouth 1 (one) time each day. 09/23/19 24 Active Oxygen Therapy (O2) gas Inhale into [...] for up to 7 days. 84 mL 03/25/19 25 Active benzonatate (TESSALON) 200 mg capsule Take 1 capsule (200 mg total) by mouth 3 (three) times a day if needed for cough. for 7 days 04/03/19 25 Active atorvastatin (LIPITOR) 10 mg tablet Take 1 tablet (10 mg total) by mouth at bedtime. 04/05/19 25 Active midodrine (PROAMATINE) 5 mg tablet Take 1 tablet (5 mg total) by mouth 3 (three) times a day before meals. 90 each 04/08/19 Active fluticasone-ume clidinium-vilan terol (Trelegy Ellipta) 200-62.5-25 mcg inhaler Inhale 1 puff (200 mcg total) by mouth 1 (one) time each day. Rinse mouth with water after use to reduce aftertaste and incidence of candidiasis. Do not swallow. 1 each 04/13/19 25 2025 Active fluticasone-ume clidinium-vilan terol (Trelegy Ellipta) 100-62.5-25 mcg inhaler Inhale 1 puff (100 mcg total) by mouth 1 (one) time each day. 2024 Discontinued guaiFENesin (MUCINEX) 600 mg 12 hr tablet Take 1 tablet (600 mg total) by mouth every 12 (twelve) hours for 10 days. Do not crush, chew, or split. 20 each 04/06/19 25 2024 azithromycin (ZITHROMAX) 250 mg tablet Take 1 tablet (250 mg total) by mouth 1 (one) time each day for 6 doses. 6 each 04/06/19 25 2024 predniSONE (DELTASONE) 20 mg tablet Take [...] each day for 3 days. 15 each 04/06/19 25 2024 magnesium oxide (MAG-OX) 400 mg (241.3 elemental magnesium) tablet Take 1 tablet (400 mg total) by mouth 2 (two) times a day. 60 each 04/08/19 25 2024 Active Problems Problem Noted Date Diagnosed [...] Encounters Date Type Department Care Team Description 05/02/2024 Telephone [facility] Cardiology [address] [place] [phone] Donna Romero MD 05/01/[address] [place] [phone] Donna Romero MD 04/12/2024 8:30 AM EST Office Visit Pulmonolgy - [place] [address] [facility] [address] [place] [phone] Ana Flaherty MD Chronic obstructive pulmonary disease, unspecified COPD type (CMS/HCC) (Primary Dx); Hypoxemia 04/04/2024 8:25 AM EST - 04/07/2024 1:21 PM EST Emergency [facility] Intermediate Care Unit [address] [place] [phone] Saray Darden DO Kenton, Mark A, MD Bukalo, Nermina, MD Bell, Alistair A, MD COPD exacerbation (CMS/HCC) (Primary Dx); Hypotension, unspecified hypotension type Discharge Disposition: Home or Self Care 03/24/2024 2:29 PM EST - 03/25/2024 3:51 PM EST Emergency [facility] Urology Unit [address] [place] [phone] Bryce Woods MD Jones, Christopher, MD Nasser, Nada S, MD Santoyo-Pacheco, Omar D, MD Multifocal pneumonia (Primary Dx); Shortness of breath; COPD exacerbation (CMS/HCC) Discharge Disposition: Home or Self Care from Last 3 Months Surgical History Surgery Date Site/Laterality Comments OTHER SURGICAL HISTORY PROCEDURE: [place] RMVL LUNG OTH/THN PNUMEC RESXN-PLCTJ EMPHY LUNG OTHER SURGICAL HISTORY 06/03/2020 Right PROCEDURE: [place] RESCJ&BRONCHOPLASTY PFRMD TM LOBEC/SGMECTOMY; COMMENT: RUL Wedge [...] care for your loved ones. For example, early childhood assistant or elderly care for an older [...] Care Team (Late st Contact Info) Description 06/25/2024 8:20 AM EDT Office Visit [facility] [address] [place] [address] Brock Barr MD [address] [place] [address] [address] [place] [address] 07/09/2024 10:30 AM EDT Appointment [facility] CT Scan [address] [place] [phone] 07/19/2024 9:00 AM EDT Ancillary Procedure Pulmonolgy - [place] [address] [facility] [address] [place] [phone] Adarsh Henriquez 07/19/2024 10:00 AM EDT Office Visit Pulmonolgy - [place] [address] [facility] [address] [place] [phone] Ana Flaherty MD [address] [facility] [address] [place] [address] 07/24/2024 10:30 AM EDT Office Visit Thoracic Surgery - [place] [address] [facility] [address] [place] [phone] Emily Schuster NP [address] [facility] [address] [place] [address] Health Maintenance Due Date Last Done Comments Breast Cancer Screening 1955 DTaP,Tdap,and Td Vaccines (1 - Tdap) 1973 RSV Immunization Adult Patients (1 - Risk 60-74 years 1-dose series) 2014 Zoster Vaccines (2 of 2) 07/09/2018 05/14/2018, 09/07 Cholesterol Screening (Lipid Panel) 01/05/2022 Colorectal Cancer Screening: Colonoscopy 01/05/2022 Depression Screening 01/05/2022 Hepatitis C Screening 01/05/2022 Osteoporosis Screening (Bone Density Screening) 01/05/2022 COVID-19 Vaccine ( season) 2023 05/15/2021, 11/15/2020, 05/17/2020, Additional history exists Influenza Vaccine (Season Ended) 2024 02/14/2019, 11/17/2016, 12/10/2015, Additional history exists Social Influencers of Health Screening 04/05/2025 04/05/2024 Falls Risk Assessment 04/07/2025 04/07/2024 Pneumococcal Vaccine: 50+ Years Completed 09/09/2022, 03/17/2022, 09/16/2020 HIB Vaccines Aged Out No longer eligi ble based on patient's age to complete this topic HPV Vaccines Aged Out No longer eligi ble based on patient's age to complete this topic Hepatitis A Vaccines Aged Out No long er eligible [...] of3 resultswithin the time period is included. Pathologist [facility] Magnesium 1.7(L) 1.9 - 2.6 mg/dL LAB CHEMISTRY METHOD 04/07/2024 7:27 AM [facility] Blood Venous blood specimen / Unknown Venipuncture / Unknown 04/07/2024 6:01 AM EST 04/07/2024 6:39 AM EST Piyush Hallman MD LAB BLOOD ORDERABLES Final Re sult [facility] [address] [place] [address], * (ABNORMAL) Basic metabolic panel (04/07/2024 6:01 AM EST) Only the most recent of4 resultswithin the time period is included. [facility] Sodium 139 133 - 145 mmol/L LAB CHEMISTRY METHOD 04/07/2024 7:46 AM [facility] Potassium 3.6 3.5 - 5.5 mmol/L LAB CHEMISTRY METHOD 04/07/2024 7:46 AM [facility] Chloride 107 96 - 110 mmol/L LAB CHEMISTRY METHOD 04/07/2024 7:46 AM [facility] CO2 27 21 - 32 mmol/L LAB CHEMISTRY METHOD 04/07/2024 7:46 AM [facility] Anion Gap 5 3 - 11 LAB CHEMISTRY METHOD 04/07/2024 7:46 AM [facility] Glucose 100 70 - 100 mg/dL LAB CHEMISTRY METHOD 04/07/2024 7:46 AM [facility] BUN 16 5 - 25 mg/dL LAB CHEMISTRY METHOD 04/07/2024 7:46 AM [facility] Creatinine 0.35(L) 0.50 - 1.10 mg/dL LAB CHEMISTRY METHOD 04/07/2024 7:46 AM [facility] eGFR 111 >=60 mL/min/1. 73m2 LAB CHEMISTRY METHOD 04/07/2024 7:46 AM [facility] Comment:Calculation based on the??Chronic Kidney Disease Epidemiology Collaboration (CKD-EPI) equation refit??without adjustment for race. BUN/Creatinine Ratio 45.7 LAB CHEMISTRY METHOD 04/07/2024 7:46 AM [facility] Calcium 7.3(L) 8.5 - 10.5 mg/dL LAB CHEMISTRY METHOD 04/07/2024 7:46 AM [facility] Blood Venous blood specimen / Unknown Venipuncture / Unknown 04/07/2024 6:01 AM EST 04/07/2024 6:39 AM EST us Piyush Hallman MD LAB BLOOD ORDERABLES Final Re sult Performing Organization Address City/[facility]/ZIP Co de Phone Number [facility] [address] [place] [address], [place] [phone] * Lavender tube (04/07/2024 5:58 AM EST) Extra Tube Hold for add-ons. 04/07/2024 8:01 AM EST [facility] Comment:Auto resulted. Blood Venous blood specimen / Unknown 04/07/2024 5:58 AM EST 04/07/2024 6:40 AM EST us Piyush Hallman MD LAB BLOOD ORDERABLES Final Re sult [facility] [address] [place] [address], [place] [phone] * Procalcitonin (04/05/2024 4:08 AM EST) Only the most recent of2 resultswithin the time period is included. Procalcitonin <0.02 <=0.16 ng/mL LAB CHEMISTRY METHOD 04/05/2024 11:53 AM EST [facility] Blood Venous blood specimen / Unknown Venipuncture / Unknown 04/05/2024 4:08 AM EST 04/05/2024 4:40 AM EST Narrative [facility] - 04/05/2024 11:53 AM EST [...] any concentrations <2.0 ng/mL are obtained. us Piyush Hallman MD LAB BLOOD ORDERABLES Final Re sult [facility] [address] [place] [address], * Phosphorus (04/05/2024 4:08 AM EST) Phosphorus 2.6 2.5 - 4.5 mg/dL LAB CHEMISTRY METHOD 04/05/2024 5:16 AM EST [facility] Blood Venous blood specimen / Unknown Venipuncture / Unknown 04/05/2024 4:08 AM EST 04/05/2024 4:40 AM EST Cynthia SUAREZ LAB BLOOD ORDERABLES Final Result Performing Organization Address [facility]/ZIP Co de Phone Number [facility] [address] [place] [address], [place] [phone] * Blood Culture, Peripheral #2 (04/04/2024 10:19 AM EST) Only the most recent of4 resultswithin the time period is included. Culture, Blood No growth at 5 days 04/09/2024 11:01 AM EST [facility] Blood Venous blood specimen / Unknown Venipuncture / Unknown 04/04/2024 10:19 AM EST 04/04/2024 10:30 AM EST Loren SUAREZ LAB MICROBIOLOGY - GENERAL ORDER ERAN Final Result Performing Organization Address [facility] de Phone Number [facility] [address] [place] [address], [place] [phone] * B-type natriuretic peptide (04/04/2024 10:19 AM EST) Only the most recent of2 resultswithin the time period is included. BNP 4 <=100 pcg/mL LAB CHEMISTRY METHOD 04/04/2024 11:21 AM EST [facility] Blood Venous blood specimen / Unknown Venipuncture / Unknown 04/04/2024 10:19 AM EST 04/04/2024 10:30 AM EST Loren SUAREZ LAB BLOOD ORDERABLES Final Resul t Performing Organization Address [facility] Co de Phone Number [facility] [address] [place] [address], [place] [phone] * CT Angio Chest wo and/or w [...] Signed Date: 04/04/2024 10:57 ET Workstation ID: [id number] Transcribed By: Self Edit Transcribed Date: 04/04/2024 [...] Signed Date: 04/04/2024 10:57 ET Workstation ID: [id number] Transcribed By: Self Edit Transcribed Date: 04/04/2024 10:27 ET Loren SUAREZ IMG CT PROCEDURES Final Result * (ABNORMAL) Urinalysis with reflex microscopic and culture (04/04/2024 9:52 AM EST) Only the most recent of2 resultswithin the time period is included. Specific [place] Urine 1.027 1.003 - 1.030 LAB URINALYSIS - AUTOMATED METHOD 04/04/2024 10:45 AM [facility] pH, Urine 6.5 5.0 - 8.0 pH LAB URINALYSIS - AUTOMATED METHOD 04/04/2024 10:45 AM [facility] Leukocytes, Urine Trace(A) Negative LAB URINALYSIS - AUTOMATED METHOD 04/04/2024 10:45 AM [facility] Nitrite, Urine Negative Negative LAB URINALYSIS - AUTOMATED METHOD 04/04/2024 10:45 AM [facility] Protein, Urine Negative <=Trace mg/dL LAB URINALYSIS - AUTOMATED METHOD 04/04/2024 10:45 AM [facility] Glucose, Urine Negative Negative mg/dL LAB URINALYSIS - AUTOMATED METHOD 04/04/2024 10:45 AM [facility] Ketones, Urine Trace(A) Negative mg/dL LAB URINALYSIS - AUTOMATED METHOD 04/04/2024 10:45 AM [facility] Urobilinogen, Urine 0.2 0.2 - 1.0 mg/dL LAB URINALYSIS - AUTOMATED METHOD 04/04/2024 10:45 AM [facility] Bilirubin, Urine Negative Negative LAB URINALYSIS - AUTOMATED METHOD 04/04/2024 10:45 AM [facility] Blood, Urine Negative Negative LAB URINALYSIS - AUTOMATED METHOD 04/04/2024 10:45 AM [facility] RBC, Urine 4.3(H) 0 - 4 /HPF LAB URINALYSIS - AUTOMATED METHOD 04/04/2024 10:45 AM [facility] WBC, Urine 4.8(H) 0 - 4 /HPF LAB URINALYSIS - AUTOMATED METHOD 04/04/2024 10:45 AM [facility] Squamous Epithelial, Urine 64(H) 0 - 60 /LPF LAB URINALYSIS - AUTOMATED METHOD 04/04/2024 10:45 AM [facility] Bacteria, Urine Few(A) Negative /HPF LAB URINALYSIS - AUTOMATED METHOD 04/04/2024 10:45 AM [facility] Hyaline Casts, Urine 1.2 0 - 3 /LPF LAB URINALYSIS - AUTOMATED METHOD 04/04/2024 10:45 AM [facility] Urine Urine specimen obtained by clean catch procedure / Unknown Non-blood Collection / Unknown 04/04/2024 9:52 AM EST 04/04/2024 10:31 AM EST us Loren SUAREZ LAB URINE ORDERABLES Final Resul t [facility] [address] [place] [address], * Rader urine culture tube (04/04/2024 9:52 AM EST) Only the most recent of2 resultswithin the time period is included. Extra Tube Hold for add-ons. 04/04/2024 12:02 PM [facility] Comment:Auto resulted. Urine Urine specimen obtained by clean catch procedure / Unknown Non-blood Collection / Unknown 04/04/2024 9:52 AM EST 04/04/2024 10:31 AM EST us Loren SUAREZ LAB URINE ORDERABLES Final Resul t Performing Organization Address City/[facility]/ZIP Co de Phone Number [facility] [address] [place] [address], [place] [phone] * Culture urine (04/04/2024 9:52 AM EST) [facility] Culture, Urine No growth 04/05/2024 11:05 AM [facility] Urine Urine specimen obtained by clean catch procedure / Unknown Non-blood Collection / Unknown 04/04/2024 9:52 AM EST 04/04/2024 10:45 AM EST [facility] MICROBIOLOGY - GENERAL ORDER ERAN Final Result Performing Organization Address [facility]/ZIP Co de Phone Number [facility] [address] [place] [address], [place] [phone] * Respiratory virus panel molecular study (04/04/2024 9:45 AM EST) Only the most recent of2 resultswithin the time period is included. [facility] Adenovirus Detection by PCR Not Detected Not Detected LAB MICROBIOLOGY METHOD 04/04/2024 10:55 AM [facility] Influenza A PCR Not Detected Not Detected LAB MICROBIOLOGY METHOD 04/04/2024 10:55 AM [facility] Influenza B PCR Not Detected Not Detected LAB MICROBIOLOGY METHOD 04/04/2024 10:55 AM [facility] Coronavirus 229E Not Detected Not Detected LAB MICROBIOLOGY METHOD 04/04/2024 10:55 AM [facility] Coronavirus HKU1 Not Detected Not Detected LAB MICROBIOLOGY METHOD 04/04/2024 10:55 AM [facility] Coronavirus OC43 Not Detected Not Detected LAB MICROBIOLOGY METHOD 04/04/2024 10:55 AM [facility] Coronavirus NL63 Not Detected Not Detected LAB MICROBIOLOGY METHOD 04/04/2024 10:55 AM [facility] Parainfluenza Virus 1 Not Detected Not Detected LAB MICROBIOLOGY METHOD 04/04/2024 10:55 AM EST [facility] Parainfluenza Virus 2 Not Detected Not Detected LAB MICROBIOLOGY METHOD 04/04/2024 10:55 AM [facility] Parainfluenza Virus 3 Not Detected Not Detected LAB MICROBIOLOGY METHOD 04/04/2024 10:55 AM [facility] Parainfluenza Virus 4 Not Detected Not Detected LAB MICROBIOLOGY METHOD 04/04/2024 10:55 AM [facility] RSV PCR Not Detected Not Detected LAB MICROBIOLOGY METHOD 04/04/2024 10:55 AM [facility] Human Metapneumovirus A and B Not Detected Not Detected LAB MICROBIOLOGY METHOD 04/04/2024 10:55 AM [facility] Rhinovirus/Entero virus Not Detected Not Detected LAB MICROBIOLOGY METHOD 04/04/2024 10:55 AM [facility] Bordetella pertussis Not Detected Not Detected LAB MICROBIOLOGY METHOD 04/04/2024 10:55 AM [facility] Bordetella parapertussis Not Detected Not Detected LAB MICROBIOLOGY METHOD 04/04/2024 10:55 AM [facility] Mycoplasma pneumo by PCR Not Detected Not Detected LAB MICROBIOLOGY METHOD 04/04/2024 10:55 AM [facility] Chlamydia pneumoniae Not Detected Not Detected LAB MICROBIOLOGY METHOD 04/04/2024 10:55 AM [facility] SARS COV-2 Not Detected Not Detected LAB MICROBIOLOGY METHOD 04/04/2024 10:55 AM [facility] Swab Both anterior nares / Unknown Non-blood Collection / Unknown 04/04/2024 9:45 AM EST 04/04/2024 9:53 AM EST [facility] - 04/04/2024 10:55 AM EST Testing was performed using the [employer] Respiratory Pathogen PCR Assay. All results must [...] ORDER ERAN Final Result Performing Organization Address City/[facility]/ZIP Co de Phone Number [facility] [address] [place] [address], * Thyroid stimulating hormone with reflex to free t4 and free t3 (04/04/2024 9:19 AM EST) [facility] TSH 1.84 0.40 - 4.00 mcIU/mL LAB CHEMISTRY METHOD 04/04/2024 4:01 PM EST [facility] Blood Venous blood specimen / Unknown Venipuncture / Unknown 04/04/2024 9:19 AM EST 04/04/2024 9:53 AM EST Cynthia SUAREZ LAB BLOOD ORDERABLES Final Result Performing Organization Address [facility] de Phone Number [facility] [address] [place] [address], * (ABNORMAL) CBC auto differential (04/04/2024 9:19 AM EST) Only the most recent of3 resultswithin the time period is included. [facility] WBC 8.4 4.8 - 10.8 K/mcL LAB HEMETOLOGY METHOD 04/04/2024 10:26 AM EST [facility] RBC 4.20 3.80 - 4.80 M/mcL LAB HEMETOLOGY METHOD 04/04/2024 10:26 AM [facility] Hemoglobin 12.8 11.5 - 16.0 g/dL LAB HEMETOLOGY METHOD 04/04/2024 10:26 AM [facility] Hematocrit 41.7 35.0 - 47.0 % LAB HEMETOLOGY METHOD 04/04/2024 10:26 AM [facility] MCV 98.8(H) 79.0 - 98.0 FL LAB HEMETOLOGY METHOD 04/04/2024 10:26 AM [facility] MCH 30.3 27.0 - 32.0 pcg LAB HEMETOLOGY METHOD 04/04/2024 10:26 AM [facility] MCHC 30.7(L) 32.0 - 37.0 g/dL LAB HEMETOLOGY METHOD 04/04/2024 10:26 AM [facility] RDW 14.2 11.0 - 15.0 % LAB HEMETOLOGY METHOD 04/04/2024 10:26 AM [facility] Platelets 298 130 - 400 K/mcL LAB HEMETOLOGY METHOD 04/04/2024 10:26 AM [facility] MPV 8.8 7.0 - 11.0 FL LAB HEMETOLOGY METHOD 04/04/2024 10:26 AM [facility] NRBC 0.0 <1.0 % LAB HEMETOLOGY METHOD 04/04/2024 10:26 AM [facility] NRBC Absolute 0.00 <0.10 K/mcL LAB HEMETOLOGY METHOD 04/04/2024 10:26 AM [facility] Neutrophils Relative 61.8 % LAB HEMETOLOGY METHOD 04/04/2024 10:26 AM [facility] Lymphocytes Relative 22.6 % LAB HEMETOLOGY METHOD 04/04/2024 10:26 AM [facility] Monocytes Relative 10.5 % LAB HEMETOLOGY METHOD 04/04/2024 10:26 AM [facility] Eosinophils Relative 2.0 % LAB HEMETOLOGY METHOD 04/04/2024 10:26 AM EST [facility] Basophils Relative 1.1 % LAB HEMETOLOGY METHOD 04/04/2024 10:26 AM [facility] Immature Granulocytes Relative 2.0 % LAB HEMETOLOGY METHOD 04/04/2024 10:26 AM [facility] Neutrophils Absolute 5.17 1.50 - 7.00 K/mcL LAB HEMETOLOGY METHOD 04/04/2024 10:26 AM [facility] Lymphocytes Absolute 1.89 1.00 - 5.00 K/mcL LAB HEMETOLOGY METHOD 04/04/2024 10:26 AM [facility] Monocytes Absolute 0.88 0.20 - 1.00 K/mcL LAB HEMETOLOGY METHOD 04/04/2024 10:26 AM [facility] Eosinophils Absolute 0.17 0.00 - 0.50 K/mcL LAB HEMETOLOGY METHOD 04/04/2024 10:26 AM [facility] Basophils Absolute 0.09 0.00 - 0.20 K/mcL LAB HEMETOLOGY METHOD 04/04/2024 10:26 AM [facility] Immature Granulocytes Absolute 0.17(H) 0.00 - 0.03 K/mcL LAB HEMETOLOGY METHOD 04/04/2024 10:26 AM [facility] Blood Venous blood specimen / Unknown Venipuncture / Unknown 04/04/2024 9:19 AM EST 04/04/2024 9:53 AM EST us Saray Darden DO LAB BLOOD ORDERABLES Elsa l Result [facility] [address] [place] [address], * Lactate (04/04/2024 9:19 AM EST) Lactate 1.0 0.4 - 2.0 mmol/L LAB CHEMISTRY METHOD 04/04/2024 10:28 AM [facility] Blood Venous blood specimen / Unknown Venipuncture / Unknown 04/04/2024 9:19 AM EST 04/04/2024 9:49 AM EST Saray Darden LAB BLOOD ORDERABLES Elsa l Result Performing Organization Address [facility]/ZIP Co de Phone Number [facility] [address] [place] [address], [place] [phone] * (ABNORMAL) Venous blood gas (04/04/2024 9:19 AM EST) pH, Thanh 7.43(H) 7.32 - 7.42 pH 04/04/2024 9:53 AM [facility] pCO2, Thanh 46 41 - 51 mmHg 04/04/2024 9:53 AM [facility] pO2, Thanh 43(H) 25 - 40 mmHg 04/04/2024 9:53 AM [facility] HCO3, Venous 28.3(H) 22.0 - 26.0 mmol/L 04/04/2024 9:53 AM [facility] O2 Sat, Thnah 75.4 % 04/04/2024 9:53 AM [facility] Base Excess, Thanh 5.2(H) -2.0 - 2.0 mmol/L 04/04/2024 9:53 AM [facility] Blood Venous blood specimen / Unknown Venipuncture / Unknown 04/04/2024 9:19 AM EST 04/04/2024 9:53 AM EST us Saray Darden DO LAB BLOOD ORDERABLES Elsa l Result [facility] [address] [place] [address], [place] [phone] * (ABNORMAL) Comprehensive metabolic panel (04/04/2024 9:19 AM EST) Sodium 142 133 - 145 mmol/L LAB CHEMISTRY METHOD 04/04/2024 11:12 AM [facility] Potassium 4.6 3.5 - 5.5 mmol/L LAB CHEMISTRY METHOD 04/04/2024 11:12 AM [facility] Chloride 107 96 - 110 mmol/L LAB CHEMISTRY METHOD 04/04/2024 11:12 AM [facility] CO2 29 21 - 32 mmol/L LAB CHEMISTRY METHOD 04/04/2024 11:12 AM [facility] Anion Gap 6 3 - 11 LAB CHEMISTRY METHOD 04/04/2024 11:12 AM [facility] Glucose 78 70 - 100 mg/dL LAB CHEMISTRY METHOD 04/04/2024 11:12 AM [facility] BUN 30(H) 5 - 25 mg/dL LAB CHEMISTRY METHOD 04/04/2024 11:12 AM [facility] Comment:Results verified by repeat testing Creatinine 0.52 0.50 - 1.10 mg/dL LAB CHEMISTRY METHOD 04/04/2024 11:12 AM [facility] eGFR 101 >=60 mL/min/1. 73m2 LAB CHEMISTRY METHOD 04/04/2024 11:12 AM [facility] Comment:Calculation based on the??Chronic Kidney Disease Epidemiology Collaboration (CKD-EPI) equation refit??without adjustment for race. BUN/Creatinine Ratio 57.7 LAB CHEMISTRY METHOD 04/04/2024 11:12 AM [facility] Calcium 9.3 8.5 - 10.5 mg/dL LAB CHEMISTRY METHOD 04/04/2024 11:12 AM [facility] AST (SGOT) 24 10 - 42 unit/L LAB CHEMISTRY METHOD 04/04/2024 11:12 AM [facility] ALT (SGPT) 45 10 - 60 unit/L LAB CHEMISTRY METHOD 04/04/2024 11:12 AM EST [facility] Alkaline Phosphatase 84 42 - 121 unit/L LAB CHEMISTRY METHOD 04/04/2024 11:12 AM EST [facility] Total Protein 6.7 6.0 - 8.0 g/dL LAB CHEMISTRY METHOD 04/04/2024 11:12 AM [facility] Albumin 3.1(L) 3.2 - 5.0 g/dL LAB CHEMISTRY METHOD 04/04/2024 11:12 AM EST [facility] Total Bilirubin 0.7 0.0 - 1.4 mg/dL LAB CHEMISTRY METHOD 04/04/2024 11:12 AM [facility] Blood Venous blood specimen / Unknown Venipuncture / Unknown 04/04/2024 9:19 AM EST 04/04/2024 9:53 AM EST [facility] Eric Santiagony Adelso DO LAB BLOOD ORDERABLES Elsa l Result [facility] [address] [place] [address], * ECG 12 lead (04/04/2024 9:10 AM EST) Only the most recent of2 resultswithin the time period is included. Ventricular Rate ECG 86 BPM GEMUSE Atrial Rate 86 BPM GEMUSE P-R Interval 106 ms GEMUSE QRS Duration 80 ms GEMUSE Q-T Interval 340 ms GEMUSE QTc 406 ms GEMUSE R [place] 53 degrees GEMUSE T [place] 60 degrees GEMUSE ECG Interpretation Sinus rhythm [...] Signed Date: 04/04/2024 09:08 ET Workstation ID: [id number] Transcribed By: Self Edit Transcribed Date: 04/04/2024 [...] Signed Date: 04/04/2024 09:08 ET Workstation ID: [id number] Transcribed By: Self Edit Transcribed Date: 04/04/2024 08:59 ET Saray Darden DO IMG XR PROCEDURES Final R esult * ECG-Outside (03/26/2024) us Provider Onbase MD ECG ORDERABLES Final Result * (ABNORMAL) Culture sputum (03/25/2024 8:26 AM EST) Culture, Sputum No pathogens isolated. 03/29/2024 9:41 AM EST [facility] Gram Stain Result >25 WBCs, 10-25 Epithelials - Acceptable for Culture(A) 03/29/2024 9:41 AM EST [facility] Gram Stain Result Many Polymorphonuclear leukocytes(A) 03/29/2024 9:41 AM EST [facility] Gram Stain Result Moderate Epithelial cells(A) 03/29/2024 9:41 AM EST [facility] Gram Stain Result Moderate Gram positive bacilli(A) 03/29/2024 9:41 AM EST [facility] Gram Stain Result Moderate Gram positive cocci in pairs and chains(A) 03/29/2024 9:41 AM [facility] Gram Stain Result Few Gram negative bacilli(A) 03/29/2024 9:41 AM EST [facility] Sputum, expectorated Oropharyngeal structure / Unknown 03/25/2024 8:26 AM EST 03/25/2024 8:39 AM EST Kemi Rivero NP LAB MICROBIOLOGY - GENER AL ORDERABLES Final Result [facility] [address] [place] [address], [place] [phone] * Streptococcus pneumoniae antibodies, IgG, 23 serotypes [...] developed and its performance characteristics determined by [facility] in a manner consistent with CLIA requirements. This test has not been cleared or approved by the [place]. Food and Drug Administration. Test Performed by: [facility] - [address] [address] Screener And Blender Operator: Erin Nicole Ph.D.; IA# [id number] Blood Venous blood specimen / Unknown Venipuncture / Unknown 03/25/2024 6:02 AM EST 03/25/2024 6:33 AM EST Kemi Rivero NP LAB BLOOD ORDERABLES Fin al Result [facility] [address] [place] [address] * Legionella antigen urine, EIA (03/24/2024 11:09 PM EST) Legionella Antigen, Ur Negative Negative 03/25/2024 12:53 AM EST [facility] Urine Urine specimen from urethra / Unknown Non-blood Collection / Unknown 03/24/2024 11:09 PM EST 03/24/2024 11:49 PM EST Narrative [facility] - 03/25/2024 12:53 AM EST Negative for Legionella pneumophilia serogroup 1 antigen. This presumptive result suggests no current or recent infection due to L. pneumophilia serogroup 1. Culture is recommended if Legionella infection is till suspected, as other serogroups and species of Legionella are not detected by this test. Kmei Rivero NP LAB URINE ORDERABLES Fin al Result [facility] [address] [place] [address], * Lactate, with Reflex (03/24/2024 8:23 PM EST) LACTIC ACID 0.8 0.4 - 2.0 mmol/L LAB CHEMISTRY METHOD 03/24/2024 9:05 PM EST [facility] Blood Venous blood specimen / Unknown Venipuncture / Unknown 03/24/2024 8:23 PM EST 03/24/2024 8:28 PM EST [facility] LAB BLOOD ORDERABLES Final Resul t Performing Organization Address City/[facility]/ZIP Co de Phone Number [facility] [address] [place] [address], [place] [phone] * Troponin I high sensitivity (03/24/2024 7:11 PM EST) Only the most recent of2 resultswithin the time period is included. [facility] High Sensitivity Troponin I <3 <=54 ng/L LAB CHEMISTRY METHOD 03/24/2024 8:13 PM EST [facility] Blood Venous blood specimen / Unknown Venipuncture / Unknown 03/24/2024 7:11 PM EST 03/24/2024 7:45 PM EST Narrative [facility] - 03/24/2024 8:13 PM EST High levels of biotin in samples may falsely decrease hsTroponin values. ??Use caution when interpreting hsTroponin results in patients taking biotin who exhibit renal impairment (eGFR <60) or in patients taking more than 20 mg/day of biotin. [facility] BLOOD ORDERABLES Final Resul t Performing Organization Address [facility] de Phone Number [facility] [address] [place] [address], [place] [phone] from Last 3 Months Insurance MEDICARE MEDICAID [...] currently active code status orders. Care Teams Bed Laster Relationship Specialty Start Date End Date Donna Romero MD [address] [place] [address] PCP - General Internal Medicine 10/30/18
--- NOTE | 2024-05-10 09:37 | AM.OFFVISNUR ---
Intake Visit Reasons: Evenity #3 (nurse visit) Allergies No Known Allergies Allergy (Verified 04/23/24 23:22) Nursing Note Consent form signed by patient. Pt tolerated injection well and denied any adverse reactions with last injection. Office Meds romosozumab-aqqg 210 mg/2.34 mL(105 mg/1.17 mL x2)subcutaneous syringe Performing Provider: Alexi Givens MD Performing Location: [facility] [place] Endocrinology Administered by: Kemi Cornejo RN on 05/10/24 09:37 Dose Route Admin Location Dispensed Lot Number Expiration Date [facility] Blind Eyeletter 210 mg subcut bilateral upper arms 2.34 mL [id number] 05/07/26 19460-620-14 [facility] Assessment & Plan Assessment & Plan Orders: Orders AMB Romosozumab Injection Patient Supplied Today M81.0 - Age-related osteoporosis without current pathological fracture Medications: New romosozumab-aqqg 210 mg (2.34 mL) subcut ONCE 2.34 mL 0RF M81.0 - Age-related osteoporosis without current pathological fracture Coding
== END 2024-05-10 09:36 | disposition home or self-care (01) ==
LOC: HO.ENCR 09:06
PROVIDERS: PCP Internal Medicine; Visit Provider Internal Medicine Endocrinology, Diabetes & Metabolism
DX: M81.0 Age-related osteoporosis without current pathological fracture (principal)

== ENCOUNTER → 2024-05-10 09:05 | Outpatient (BNVA) | payer MEDICAID, SELFPAY | PROVIDERS: PCP Internal Medicine; Visit Provider Internal Medicine Endocrinology, Diabetes & Metabolism | DX: M81.0 Age-related osteoporosis without current pathological fracture (principal) | CPT/HCPCS: 96372; J3111 ==

== ENCOUNTER 2024-06-07 09:08 | Outpatient (AMB) | payer MEDICAID, SELFPAY ==
--- NOTE | 2024-06-07 09:32 | AM.OFFVISNUR ---
Intake Visit Reasons: Evenity #4 Allergies No Known Allergies Allergy (Verified 04/23/24 23:22) Office Meds romosozumab-aqqg 210 mg/2.34 mL(105 mg/1.17 mL x2)subcutaneous syringe Performing Provider: Alexi Givens MD Performing Location: [facility] [place] Endocrinology Administered by: Kemi Velazco RN on 06/07/24 09:33 Dose Route Admin Location Dispensed Lot Number Expiration Date [facility] Dial Refinisher 210 mg subcut bilateral upper arms 2.34 mL [id number] 06/06/26 55454-951-88 [facility] Comments: Consent form signed by patient. Pt tolerated injection well. Pt denies any adverse reaction with previous injection. Assessment & Plan Assessment & Plan Orders: Orders AMB Romosozumab Injection Patient Supplied Today M81.0 - Age-related osteoporosis without current pathological fracture Medications: New romosozumab-aqqg 210 mg (2.34 mL) subcut ONCE 2.34 mL 0RF M81.0 - Age-related osteoporosis without current pathological fracture Coding
--- OUTSIDE RECORDS SUMMARY | 2024-06-07 09:52 | XMS_ITS | Clinical Summary ---
Author Organization [facility] Address [address] [place] [phone] Phone Care Team Providers [facility] Nurse Name Role Phone Donna Romero MD Primary Care Provider Allergies No known active allergies Medications nabumetone (RELAFEN) 500 mg tablet Take 1 tablet (500 mg total) by mouth 2 (two) times a day. Active omeprazole (PriLOSEC) [address] capsule Take 1 capsule (20 mg total) by mouth 1 (one) time each day. 4 Active Oxygen Therapy (O2) gas Inhale into the lungs. Oxygen Historical (HISTORICAL OXYGEN) Active romosozumab-aqqg (Evenity) Inject 2.34 mL (210 mg total) under the skin every 30 (thirty) days. Active ipratropium-albu teroL (DUONEB) 0.5-2.5 mg/3 mL nebulizer solutionIndicati ons:COPD exacerbation (CMS/HCC V24, CMS/HCC V28) Take 3 mL by nebulization 4 (four) times a day if needed for wheezing or shortness of breath for up to 7 days. 84 mL 5 Active benzonatate (TESSALON) 200 mg capsule Take 1 capsule (200 mg total) by mouth 3 (three) times a day if needed for cough. for 7 days 5 Active atorvastatin (LIPITOR) 10 mg tablet Take 1 tablet (10 mg total) by mouth at bedtime. 5 Active midodrine (PROAMATINE) 5 mg tablet Take 1 tablet (5 mg total) by mouth 3 (three) times a day before meals. 90 each 5 Active fluticasone-umec lidinium-vilante rol (Trelegy Ellipta) 200-62.5-25 mcg inhaler Inhale 1 puff (200 mcg total) by mouth 1 (one) time each day. Rinse mouth with water after use to reduce aftertaste and incidence of candidiasis. Do not swallow. 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 Overview (01/13/2024): Last [...] Type Department Care Team Description 05/02/2024 Telephone [facility] Cardiology [facility] [address] [place] [address] Donna Romero MD 05/01/2024 Telephone [facility] Cardiology [facility] [address] [place] [phone] Donna Romero MD 04/12/2024 8:30 AM EST Office Visit Pulmonolgy - [place] [address] [facility] [address] [place] [phone] Ana Flaherty MD Chronic obstructive pulmonary disease, unspecified COPD type ([facility] V24, [facility] V28) (Primary Dx); Hypoxemia 04/04/2024 8:25 AM EST - 04/07/2024 1:21 PM EST Hospital Encounter [facility] Intermediate Care Unit [address] [place] [phone] Saray Darden, Adam Buckley MD Bukalo, Nermina, MD Bell, Alistair A, MD COPD exacerbation ([facility] V24, [facility] V28) (Primary Dx); Hypotension, unspecified hypotension type Discharge Disposition: Home or Self Care 03/24/2024 2:29 PM EST - 03/25/2024 3:51 PM EST Hospital Encounter [facility] Urology Unit [address] [place] [address] Bryce Woods MD Jones, Christopher, MD Nasser, Nada S, MD Santoyo-Pacheco, Donis Johnston MD Multifocal pneumonia (Primary Dx); Shortness of breath; COPD exacerbation ([facility] V24, [facility] V28) Discharge Disposition: Home or Self Care from Last 3 Months Surgical History Surgery Date Site/Laterality Comments OTHER SURGICAL HISTORY PROCEDURE: ME RMVL LUNG OTH/THN PNUMEC RESXN-PLCTJ EMPHY LUNG OTHER SURGICAL HISTORY 06/03/2020 Right PROCEDURE: ME RESCJ&BRONCHOPLASTY PFRMD TM LOBEC/SGMECTOMY; COMMENT: RUL Wedge w/ completetion RUL lobectomy Medical History Medical History Date Comments Nocturnal hypoxia 04/24/2017 DX:Nocturnal h ypoxia Depression 04/24/2017 DX:Depression COPD (chronic obstructive pu lmonary disease) ([facility] V24, CMS/HCC V28) DX:COPD (chronic o bstructive pulmonary disease) (HCC) Ventral hernia without obstr uction or gangrene DX:Ventral hernia without ob struction or gangrene Lung cancer (CMS/HCC V24, CM S/HCC V28) DX:Lung cancer (HCC) Hiatal hernia DX:Hiatal hernia Dysphagia DX:Dysphagia [...] your loved ones. For example, child care assistant or elderly care for an older [...] Description 06/25/2024 8:20 AM EDT Office Visit [facility] Cardiology [address] [place] [address] Brock Barr MD [address] [place] [address] DRIVE [address] [place] [address] 07/09/2024 10:30 AM EDT Appointment [facility] CT Scan [address] [place] [address] 07/19/2024 9:00 AM EDT Ancillary Procedure Pulmonolgy - [place] [address] [facility] [address] [place] [phone] 07/19/2024 10:00 AM EDT Office Visit Pulmonolgy - [place] [address] [facility] [address] [place] [phone] Ana Flaherty MD 175 [facility] [address] [place] [address] 07/23/2024 10:30 AM EDT Office Visit Thoracic Surgery - [place] [address] [facility] [address] [place] [phone] Emily Schuster NP 299 [facility] [address] [place] [address] Health Maintenance Due Date Last Done Comments [...] age to complete this topic Meningococcal B Vaccine Aged Out No l onger eligible based on patient's age to complete [...] STAT 04/04/2024 10:04 AM EST COPD exacerbation (CMS/HCC V24, CMS/HCC V28) RADER URINE CULTURE TUBE STAT 04/04/2024 9:52 [...] LAB CHEMISTRY METHOD 04/07/2024 7:27 AM EST [facility] Blood Venous blood specimen / Unknown Venipuncture / Unknown 04/07/2024 6:01 AM EST 04/07/2024 6:39 AM EST us Piyush Hallman MD LAB BLOOD ORDERABLES Final Re sult [facility] [address] [place] [address], [place] [phone] * (ABNORMAL) Basic metabolic panel (04/07/2024 6:01 AM EST) Only the most recent of4 resultswithin the time period is included. Sodium 139 133 - 145 mmol/L LAB CHEMISTRY METHOD 04/07/2024 7:46 AM [facility] Potassium 3.6 3.5 - 5.5 mmol/L LAB CHEMISTRY METHOD 04/07/2024 7:46 AM [facility] Chloride 107 96 - 110 mmol/L LAB CHEMISTRY METHOD 04/07/2024 7:46 AM [facility] CO2 27 21 - 32 mmol/L LAB CHEMISTRY METHOD 04/07/2024 7:46 AM [facility] Anion Gap 5 3 - 11 LAB CHEMISTRY METHOD 04/07/2024 7:46 AM [facility] Glucose 100 70 - 100 mg/dL LAB CHEMISTRY METHOD 04/07/2024 7:46 AM [facility] BUN 16 5 - 25 mg/dL LAB CHEMISTRY METHOD 04/07/2024 7:46 AM [facility] Creatinine 0.35(L) 0.50 - 1.10 mg/dL LAB CHEMISTRY METHOD 04/07/2024 7:46 AM [facility] eGFR 111 >=60 mL/min/1. 73m2 LAB CHEMISTRY METHOD 04/07/2024 7:46 AM [facility] Comment:Calculation based on the??Chronic Kidney Disease Epidemiology Collaboration (CKD-EPI) equation refit??without adjustment for race. BUN/Creatinine Ratio 45.7 LAB CHEMISTRY METHOD 04/07/2024 7:46 AM [facility] Calcium 7.3(L) 8.5 - 10.5 mg/dL LAB CHEMISTRY METHOD 04/07/2024 7:46 AM [facility] Blood Venous blood specimen / Unknown Venipuncture / Unknown 04/07/2024 6:01 AM EST 04/07/2024 6:39 AM EST us Piyush Hallman MD LAB BLOOD ORDERABLES Final Re sult Performing Organization Address [facility]/ZIP Co de Phone Number [facility] [address] [place] [address], [place] [phone] * Lavender tube (04/07/2024 5:58 AM EST) Extra Tube Hold for add-ons. 04/07/2024 8:01 AM EST [facility] Comment:Auto resulted. Blood Venous blood specimen / Unknown 04/07/2024 5:58 AM EST 04/07/2024 6:40 AM EST Piyush Hallman MD LAB BLOOD ORDERABLES Final Re sult Performing Organization Address [facility]/ZIP Co de Phone Number [facility] [address] [place] [address], [place] [phone] * Procalcitonin (04/05/2024 4:08 AM EST) Only the most recent of2 resultswithin the time period is included. Procalcitonin <0.02 <=0.16 ng/mL LAB CHEMISTRY METHOD 04/05/2024 11:53 AM EST [facility] Blood Venous blood specimen / Unknown Venipuncture / Unknown 04/05/2024 4:08 AM EST 04/05/2024 4:40 AM EST Narrative [facility] - 04/05/2024 11:53 AM EST [...] ORDERABLES Final Re sult Performing Organization Address [facility] de Phone Number [facility] [address] [place] [address], * Phosphorus (04/05/2024 4:08 AM EST) Phosphorus 2.6 2.5 - 4.5 mg/dL LAB CHEMISTRY METHOD 04/05/2024 5:16 AM EST [facility] Blood Venous blood specimen / Unknown Venipuncture / Unknown 04/05/2024 4:08 AM EST 04/05/2024 4:40 AM EST Cynthia SUAREZ LAB BLOOD ORDERABLES Final Result Performing Organization Address [facility] de Phone Number [facility] [address] [place] [address], * Blood Culture, Peripheral #2 (04/04/2024 10:19 AM EST) Only the most recent of4 resultswithin the time period is included. Culture, Blood No growth at 5 days 04/09/2024 11:01 AM EST [facility] Blood Venous blood specimen / Unknown Venipuncture / Unknown 04/04/2024 10:19 AM EST 04/04/2024 10:30 AM EST Loren SUAREZ LAB MICROBIOLOGY - GENERAL ORDER ERAN Final Result Performing Organization Address [facility]/State/ZIP Co de Phone Number [facility] [address] [place] [address], * B-type natriuretic peptide (04/04/2024 10:19 AM EST) Only the most recent of2 resultswithin the time period is included. BNP 4 <=100 pcg/mL LAB CHEMISTRY METHOD 04/04/2024 11:21 AM EST [facility] Blood Venous blood specimen / Unknown Venipuncture / Unknown 04/04/2024 10:19 AM EST 04/04/2024 10:30 AM EST Loren SUAREZ LAB BLOOD ORDERABLES Final Resul t [facility] [address] [place] [address], * CT Angio Chest wo and/or w [...] Signed Date: 04/04/2024 10:57 ET Workstation ID: [id number] Transcribed By: Self Edit Transcribed Date: 04/04/2024 [...] Signed Date: 04/04/2024 10:57 ET Workstation ID: [id number] Transcribed By: Self Edit Transcribed Date: 04/04/2024 10:27 ET [facility]ED[facility] Final Result * (ABNORMAL) Urinalysis with reflex microscopic and culture (04/04/2024 9:52 AM EST) Only the most recent of2 resultswithin the time period is included. Specific [place] Urine 1.027 1.003 - 1.030 LAB URINALYSIS - AUTOMATED METHOD 04/04/2024 10:45 AM EST [facility] pH, Urine 6.5 5.0 - 8.0 pH LAB URINALYSIS - AUTOMATED METHOD 04/04/2024 10:45 AM [facility] Leukocytes, Urine Trace(A) Negative LAB URINALYSIS - AUTOMATED METHOD 04/04/2024 10:45 AM [facility] Nitrite, Urine Negative Negative LAB URINALYSIS - AUTOMATED METHOD 04/04/2024 10:45 AM [facility] Protein, Urine Negative <=Trace mg/dL LAB URINALYSIS - AUTOMATED METHOD 04/04/2024 10:45 AM [facility] Glucose, Urine Negative Negative mg/dL LAB URINALYSIS - AUTOMATED METHOD 04/04/2024 10:45 AM [facility] Ketones, Urine Trace(A) Negative mg/dL LAB URINALYSIS - AUTOMATED METHOD 04/04/2024 10:45 AM [facility] Urobilinogen, Urine 0.2 0.2 - 1.0 mg/dL LAB URINALYSIS - AUTOMATED METHOD 04/04/2024 10:45 AM [facility] Bilirubin, Urine Negative Negative LAB URINALYSIS - AUTOMATED METHOD 04/04/2024 10:45 AM [facility] Blood, Urine Negative Negative LAB URINALYSIS - AUTOMATED METHOD 04/04/2024 10:45 AM [facility] RBC, Urine 4.3(H) 0 - 4 /HPF LAB URINALYSIS - AUTOMATED METHOD 04/04/2024 10:45 AM [facility] WBC, Urine 4.8(H) 0 - 4 /HPF LAB URINALYSIS - AUTOMATED METHOD 04/04/2024 10:45 AM [facility] Squamous Epithelial, Urine 64(H) 0 - 60 /LPF LAB URINALYSIS - AUTOMATED METHOD 04/04/2024 10:45 AM [facility] Bacteria, Urine Few(A) Negative /HPF LAB URINALYSIS - AUTOMATED METHOD 04/04/2024 10:45 AM [facility] Hyaline Casts, Urine 1.2 0 - 3 /LPF LAB URINALYSIS - AUTOMATED METHOD 04/04/2024 10:45 AM [facility] Urine Urine specimen obtained by clean catch procedure / Unknown Non-blood Collection / Unknown 04/04/2024 9:52 AM EST 04/04/2024 10:31 AM EST [facility] URINE ORDERABLES Final Resul t Performing Organization Address [facility] Co de Phone Number [facility] [address] [place] [address], [place] [phone] * Rader urine culture tube (04/04/2024 9:52 AM EST) Only the most recent of2 resultswithin the time period is included. Extra Tube Hold for add-ons. 04/04/2024 12:02 PM EST [facility] Comment:Auto resulted. Urine Urine specimen obtained by clean catch procedure / Unknown Non-blood Collection / Unknown 04/04/2024 9:52 AM EST 04/04/2024 10:31 AM EST [facility] URINE ORDERABLES Final Resul t Performing Organization Address [facility] de Phone Number [facility] [address] [place] [address], [place] [phone] * Culture urine (04/04/2024 9:52 AM EST) Culture, Urine No growth 04/05/2024 11:05 AM EST [facility] Urine Urine specimen obtained by clean catch procedure / Unknown Non-blood Collection / Unknown 04/04/2024 9:52 AM EST 04/04/2024 10:45 AM EST [facility] MICROBIOLOGY - GENERAL ORDER ERAN Final Result Performing Organization Address City/[facility] Co de Phone Number [facility] [address] [place] [address], [place] [phone] * Respiratory virus panel molecular study (04/04/2024 9:45 AM EST) Only the most recent of2 resultswithin the time period is included. Pathologist [facility] Adenovirus Detection by PCR Not Detected Not Detected LAB MICROBIOLOGY METHOD 04/04/2024 10:55 AM [facility] Influenza A PCR Not Detected Not Detected LAB MICROBIOLOGY METHOD 04/04/2024 10:55 AM [facility] Influenza B PCR Not Detected Not Detected LAB MICROBIOLOGY METHOD 04/04/2024 10:55 AM [facility] Coronavirus 229E Not Detected Not Detected LAB MICROBIOLOGY METHOD 04/04/2024 10:55 AM [facility] Coronavirus HKU1 Not Detected Not Detected LAB MICROBIOLOGY METHOD 04/04/2024 10:55 AM [facility] Coronavirus OC43 Not Detected Not Detected LAB MICROBIOLOGY METHOD 04/04/2024 10:55 AM [facility] Coronavirus NL63 Not Detected Not Detected LAB MICROBIOLOGY METHOD 04/04/2024 10:55 AM [facility] Parainfluenza Virus 1 Not Detected Not Detected LAB MICROBIOLOGY METHOD 04/04/2024 10:55 AM [facility] Parainfluenza Virus 2 Not Detected Not Detected LAB MICROBIOLOGY METHOD 04/04/2024 10:55 AM [facility] Parainfluenza Virus 3 Not Detected Not Detected LAB MICROBIOLOGY METHOD 04/04/2024 10:55 AM [facility] Parainfluenza Virus 4 Not Detected Not Detected LAB MICROBIOLOGY METHOD 04/04/2024 10:55 AM [facility] RSV PCR Not Detected Not Detected LAB MICROBIOLOGY METHOD 04/04/2024 10:55 AM [facility] Human Metapneumovirus A and B Not Detected Not Detected LAB MICROBIOLOGY METHOD 04/04/2024 10:55 AM [facility] Rhinovirus/Entero virus Not Detected Not Detected LAB MICROBIOLOGY METHOD 04/04/2024 10:55 AM [facility] Bordetella pertussis Not Detected Not Detected LAB MICROBIOLOGY METHOD 04/04/2024 10:55 AM EST [facility] Bordetella parapertussis Not Detected Not Detected LAB MICROBIOLOGY METHOD 04/04/2024 10:55 AM [facility] Mycoplasma pneumo by PCR Not Detected Not Detected LAB MICROBIOLOGY METHOD 04/04/2024 10:55 AM EST [facility] Chlamydia pneumoniae Not Detected Not Detected LAB MICROBIOLOGY METHOD 04/04/2024 10:55 AM [facility] SARS COV-2 Not Detected Not Detected LAB MICROBIOLOGY METHOD 04/04/2024 10:55 AM [facility] Swab Both anterior nares / Unknown Non-blood Collection / Unknown 04/04/2024 9:45 AM EST 04/04/2024 9:53 AM EST [facility] - 04/04/2024 10:55 AM EST Testing was performed using the PerspecSys Respiratory Pathogen PCR Assay. All results must [...] that are below the limit of detection. Joan Loc SUAREZ LAB MICROBIOLOGY - GENERAL ORDER ERAN Final Result [facility] [address] [place] [address], * Thyroid stimulating hormone with reflex to free t4 and free t3 (04/04/2024 9:19 AM EST) TSH 1.84 0.40 - 4.00 mcIU/mL LAB CHEMISTRY METHOD 04/04/2024 4:01 PM [facility] Blood Venous blood specimen / Unknown Venipuncture / Unknown 04/04/2024 9:19 AM EST 04/04/2024 9:53 AM EST us Cynthia SUAREZ LAB BLOOD ORDERABLES Final Result [facility] [address] [place] [address], [place] [phone] * (ABNORMAL) CBC auto differential (04/04/2024 9:19 AM EST) Only the most recent of3 resultswithin the time period is included. Pathologist [facility] WBC 8.4 4.8 - 10.8 K/mcL LAB HEMETOLOGY METHOD 04/04/2024 10:26 AM [facility] RBC 4.20 3.80 - 4.80 M/mcL LAB HEMETOLOGY METHOD 04/04/2024 10:26 AM [facility] Hemoglobin 12.8 11.5 - 16.0 g/dL LAB HEMETOLOGY METHOD 04/04/2024 10:26 AM [facility] Hematocrit 41.7 35.0 - 47.0 % LAB HEMETOLOGY METHOD 04/04/2024 10:26 AM [facility] MCV 98.8(H) 79.0 - 98.0 FL LAB HEMETOLOGY METHOD 04/04/2024 10:26 AM [facility] MCH 30.3 27.0 - 32.0 pcg LAB HEMETOLOGY METHOD 04/04/2024 10:26 AM [facility] MCHC 30.7(L) 32.0 - 37.0 g/dL LAB HEMETOLOGY METHOD 04/04/2024 10:26 AM [facility] RDW 14.2 11.0 - 15.0 % LAB HEMETOLOGY METHOD 04/04/2024 10:26 AM [facility] Platelets 298 130 - 400 K/mcL LAB HEMETOLOGY METHOD 04/04/2024 10:26 AM [facility] MPV 8.8 7.0 - 11.0 FL LAB HEMETOLOGY METHOD 04/04/2024 10:26 AM [facility] NRBC 0.0 <1.0 % LAB HEMETOLOGY METHOD 04/04/2024 10:26 AM [facility] NRBC Absolute 0.00 <0.10 K/mcL LAB HEMETOLOGY METHOD 04/04/2024 10:26 AM [facility] Neutrophils Relative 61.8 % LAB HEMETOLOGY METHOD 04/04/2024 10:26 AM [facility] Lymphocytes Relative 22.6 % LAB HEMETOLOGY METHOD 04/04/2024 10:26 AM [facility] Monocytes Relative 10.5 % LAB HEMETOLOGY METHOD 04/04/2024 10:26 AM [facility] Eosinophils Relative 2.0 % LAB HEMETOLOGY METHOD 04/04/2024 10:26 AM [facility] Basophils Relative 1.1 % LAB HEMETOLOGY METHOD 04/04/2024 10:26 AM [facility] Immature Granulocytes Relative 2.0 % LAB HEMETOLOGY METHOD 04/04/2024 10:26 AM [facility] Neutrophils Absolute 5.17 1.50 - 7.00 K/mcL LAB HEMETOLOGY METHOD 04/04/2024 10:26 AM [facility] Lymphocytes Absolute 1.89 1.00 - 5.00 K/mcL LAB HEMETOLOGY METHOD 04/04/2024 10:26 AM [facility] Monocytes Absolute 0.88 0.20 - 1.00 K/mcL LAB HEMETOLOGY METHOD 04/04/2024 10:26 AM [facility] Eosinophils Absolute 0.17 0.00 - 0.50 K/mcL LAB HEMETOLOGY METHOD 04/04/2024 10:26 AM [facility] Basophils Absolute 0.09 0.00 - 0.20 K/[facility] LAB HEMETOLOGY METHOD 04/04/2024 10:26 AM EST [facility] Immature Granulocytes Absolute 0.17(H) 0.00 - 0.03 K/[facility] LAB HEMETOLOGY METHOD 04/04/2024 10:26 AM EST [facility] Blood Venous blood specimen / Unknown Venipuncture / Unknown 04/04/2024 9:19 AM EST 04/04/2024 9:53 AM EST [facility] BLOOD ORDERABLES Elsa l Result Performing Organization Address City/[facility]/ZIP Co de Phone Number [facility] [address] [place] [address], [place] [phone] * Lactate (04/04/2024 9:19 AM EST) Lactate 1.0 0.4 - 2.0 mmol/L LAB CHEMISTRY METHOD 04/04/2024 10:28 AM [facility] Blood Venous blood specimen / Unknown Venipuncture / Unknown 04/04/2024 9:19 AM EST 04/04/2024 9:49 AM EST [facility] LAB BLOOD ORDERABLES Elsa l Result Performing Organization Address City/[facility]/ZIP Co de Phone Number [facility] [address] [place] [address], [place] [phone] * (ABNORMAL) Venous blood gas (04/04/2024 9:19 AM EST) pH, Thanh 7.43(H) 7.32 - 7.42 pH 04/04/2024 9:53 AM [facility] pCO2, Thanh 46 41 - 51 mmHg 04/04/2024 9:53 AM EST [facility] pO2, Thanh 43(H) 25 - 40 mmHg 04/04/2024 9:53 AM [facility] HCO3, Venous 28.3(H) 22.0 - 26.0 mmol/L 04/04/2024 9:53 AM [facility] O2 Sat, Thanh 75.4 % 04/04/2024 9:53 AM [facility] Base Excess, Thanh 5.2(H) -2.0 - 2.0 mmol/L 04/04/2024 9:53 AM [facility] Blood Venous blood specimen / Unknown Venipuncture / Unknown 04/04/2024 9:19 AM EST 04/04/2024 9:53 AM EST us Saray Darden DO LAB BLOOD ORDERABLES Elsa l Result [facility] [address] [place] [address], * (ABNORMAL) Comprehensive metabolic panel (04/04/2024 9:19 AM EST) Sodium 142 133 - 145 mmol/L LAB CHEMISTRY METHOD 04/04/2024 11:12 AM [facility] Potassium 4.6 3.5 - 5.5 mmol/L LAB CHEMISTRY METHOD 04/04/2024 11:12 AM [facility] Chloride 107 96 - 110 mmol/L LAB CHEMISTRY METHOD 04/04/2024 11:12 AM [facility] CO2 29 21 - 32 mmol/L LAB CHEMISTRY METHOD 04/04/2024 11:12 AM [facility] Anion Gap 6 3 - 11 LAB CHEMISTRY METHOD 04/04/2024 11:12 AM [facility] Glucose 78 70 - 100 mg/dL LAB CHEMISTRY METHOD 04/04/2024 11:12 AM [facility] BUN 30(H) 5 - 25 mg/dL LAB CHEMISTRY METHOD 04/04/2024 11:12 AM [facility] Comment:Results verified by repeat testing Creatinine 0.52 0.50 - 1.10 mg/dL LAB CHEMISTRY METHOD 04/04/2024 11:12 AM [facility] eGFR 101 >=60 mL/min/1. 73m2 LAB CHEMISTRY METHOD 04/04/2024 11:12 AM [facility] Comment:Calculation based on the??Chronic Kidney Disease Epidemiology Collaboration (CKD-EPI) equation refit??without adjustment for race. BUN/Creatinine Ratio 57.7 LAB CHEMISTRY METHOD 04/04/2024 11:12 AM [facility] Calcium 9.3 8.5 - 10.5 mg/dL LAB CHEMISTRY METHOD 04/04/2024 11:12 AM [facility] AST (SGOT) 24 10 - 42 unit/L LAB CHEMISTRY METHOD 04/04/2024 11:12 AM [facility] ALT (SGPT) 45 10 - 60 unit/L LAB CHEMISTRY METHOD 04/04/2024 11:12 AM [facility] Alkaline Phosphatase 84 42 - 121 unit/L LAB CHEMISTRY METHOD 04/04/2024 11:12 AM [facility] Total Protein 6.7 6.0 - 8.0 g/dL LAB CHEMISTRY METHOD 04/04/2024 11:12 AM [facility] Albumin 3.1(L) 3.2 - 5.0 g/dL LAB CHEMISTRY METHOD 04/04/2024 11:12 AM [facility] Total Bilirubin 0.7 0.0 - 1.4 mg/dL LAB CHEMISTRY METHOD 04/04/2024 11:12 AM [facility] Blood Venous blood specimen / Unknown Venipuncture / Unknown 04/04/2024 9:19 AM EST 04/04/2024 9:53 AM EST Saray Darden DO LAB BLOOD ORDERABLES Elsa l Result Performing Organization Address City/[facility]/ZIP Co de Phone Number [facility] [address] [place] [address], [place] [phone] * ECG 12 lead (04/04/2024 9:10 AM EST) Only the most recent of2 resultswithin the time period is included. Ventricular Rate ECG 86 BPM GEMUSE Atrial Rate 86 BPM GEMUSE P-R Interval 106 ms GEMUSE QRS Duration 80 ms GEMUSE Q-T Interval 340 ms GEMUSE QTc 406 ms GEMUSE R [place] 53 degrees GEMUSE T [place] 60 degrees GEMUSE ECG Interpretation Sinus rhythm When compared with ECG of 24-MAR-2024 15:56, No significant change was found Confirmed by EDIL ARAIZA ([id number]) on 04/04/2024 8:07:00 PM GEMUSE 04/04/2024 9:10 AM EST 04/04/2024 8:07 PM EST us Saray Darden DO ECG ORDERABLES Final Res ult Performing Organization Address [facility] Co de Phone Number GEMUSE * XR Chest [...] Signed Date: 04/04/2024 09:08 ET Workstation ID: [id number] Transcribed By: Self Edit Transcribed Date: 04/04/2024 [...] Signed Date: 04/04/2024 09:08 ET Workstation ID: [id number] Transcribed By: Self Edit Transcribed Date: 04/04/2024 08:59 ET us Saray Reyes Trell Adelso DO IMG XR PROCEDURES Final R esult * ECG-Outside (03/26/2024) us Provider Onbase ECG ORDERABLES Final Result * (ABNORMAL) Culture sputum (03/25/2024 8:26 AM EST) Culture, Sputum No pathogens isolated. 03/29/2024 9:41 AM EST [facility] Gram Stain Result >25 WBCs, 10-25 Epithelials - Acceptable for Culture(A) 03/29/2024 9:41 AM EST [facility] Gram Stain Result Many Polymorphonuclear leukocytes(A) 03/29/2024 9:41 AM EST [facility] Gram Stain Result Moderate Epithelial cells(A) 03/29/2024 9:41 AM EST [facility] Gram Stain Result Moderate Gram positive bacilli(A) 03/29/2024 9:41 AM EST [facility] Gram Stain Result Moderate Gram positive cocci in pairs and chains(A) 03/29/2024 9:41 AM EST [facility] Gram Stain Result Few Gram negative bacilli(A) 03/29/2024 9:41 AM EST [facility] Sputum, expectorated Oropharyngeal structure / Unknown 03/25/2024 8:26 AM EST 03/25/2024 8:39 AM EST us Kemi Rivero NP LAB MICROBIOLOGY - GENER AL ORDERABLES Final Result [facility] ([facility]) [facility] [address] [place] [address], [place] [phone] * Streptococcus pneumoniae antibodies, IgG, 23 serotypes [...] and its performance characteristics determined by [facility] in a manner consistent with CLIA requirements. This test has not been cleared or approved by the U.S. Food and Drug Administration. Test Performed by: [facility] [place] [address] Coin Machine Assembler: Erin Nicole Ph.D.; CLIA# [id number] Blood Venous blood specimen / Unknown Venipuncture / Unknown 03/25/2024 6:02 AM EST 03/25/2024 6:33 AM EST us Kemi Rivero GASTROENTEROLOGY TEACHER LAB BLOOD ORDERABLES [facility] al Result [facility] [address] [place] [address] * Legionella antigen urine, EIA (03/24/2024 11:09 PM EST) Legionella Antigen, Ur Negative Negative 03/25/2024 12:53 AM EST [facility] Urine Urine specimen from urethra / Unknown Non-blood Collection / Unknown 03/24/2024 11:09 PM EST 03/24/2024 11:49 PM EST Narrative [facility] - 03/25/2024 12:53 AM EST Negative for Legionella pneumophilia serogroup 1 antigen. This presumptive result suggests no current or recent infection due to L. pneumophilia serogroup 1. Culture is recommended if Legionella infection is till suspected, as other serogroups and species of Legionella are not detected by this test. Kemi Emre Rivero NP LAB URINE ORDERABLES Fin al Result [facility] [address] [place] [address], [place] [phone] * Lactate, with Reflex (03/24/2024 8:23 PM EST) Pathologist [facility] LACTIC ACID 0.8 0.4 - 2.0 mmol/L LAB CHEMISTRY METHOD 03/24/2024 9:05 PM EST [facility] Blood Venous blood specimen / Unknown Venipuncture / Unknown 03/24/2024 8:23 PM EST 03/24/2024 8:28 PM EST Joanparrish Loc PA LAB BLOOD ORDERABLES Final Resul t [facility] [address] [place] [address], [place] [phone] * Troponin I high sensitivity (03/24/2024 7:11 PM EST) Only the most recent of2 resultswithin the time period is included. Pathologist [facility] High Sensitivity Troponin I <3 <=54 ng/L LAB CHEMISTRY METHOD 03/24/2024 8:13 PM EST [facility] Blood Venous blood specimen / Unknown Venipuncture / Unknown 03/24/2024 7:11 PM EST 03/24/2024 7:45 PM EST Narrative [facility] - 03/24/2024 8:13 PM EST High levels of biotin in samples may falsely decrease hsTroponin values. ??Use caution when interpreting hsTroponin results in patients taking biotin who exhibit renal impairment (eGFR <60) or in patients taking more than 20 mg/day of biotin. us Loren SUAREZ LAB BLOOD ORDERABLES Final Resul t [facility] ([facility]) [facility] [address] [place] [address], [place] [phone] from Last 3 Months Insurance MEDICARE MEDICAID [...] currently active code status orders. Care Teams [facility] Nurse Relationship Specialty Start Date End Date Donna Romero MD [address] [place] [address] PCP - General Internal Medicine 10/30/18
== END 2024-06-07 09:32 | disposition home or self-care (01) ==
LOC: HO.ENCR 09:09
PROVIDERS: PCP Internal Medicine; Visit Provider Internal Medicine Endocrinology, Diabetes & Metabolism
DX: M81.0 Age-related osteoporosis without current pathological fracture (principal)

== ENCOUNTER → 2024-06-07 09:08 | Outpatient (BNVA) | payer MEDICAID, SELFPAY | PROVIDERS: PCP Internal Medicine; Visit Provider Internal Medicine Endocrinology, Diabetes & Metabolism | DX: M81.0 Age-related osteoporosis without current pathological fracture (principal) | CPT/HCPCS: 96372; J3111 ==

== ENCOUNTER 2024-07-05 08:42 | Outpatient (AMB) | payer MEDICAID, SELFPAY ==
--- NOTE | 2024-07-05 09:16 | AM.OFFVISNUR ---
Intake Visit Reasons: Evenity #5 Allergies No Known Allergies Allergy (Verified 04/23/24 23:22) Office Meds romosozumab-aqqg 210 mg/2.34 mL(105 mg/1.17 mL x2)subcutaneous syringe Performing Provider: Alexi Givens MD Performing Location: [facility] Administered by: Kemi Velazco RN on 07/05/24 09:16 Dose Route Admin Location Dispensed Lot Number Expiration Date [facility] Employment Coordinator 210 mg subcut bilateral upper arms 2.34 mL [id number] 09/06/26 32252-790-85 AMGEN Comments: Patient tolerated injection well. Denies any adverse reactions with previous injections. Patient scheduled in x4 weeks for next injection. Assessment & Plan Assessment & Plan Orders: Orders AMB Romosozumab Injection Patient Supplied Today M81.0 - Age-related osteoporosis without current pathological fracture Medications: New romosozumab-aqqg 210 mg (2.34 mL) subcut ONCE 2.34 mL 0RF M81.0 - Age-related osteoporosis without current pathological fracture Coding
== END 2024-07-05 09:14 | disposition home or self-care (01) ==
LOC: HO.ENCR 08:43
PROVIDERS: PCP Internal Medicine; Visit Provider Internal Medicine Endocrinology, Diabetes & Metabolism
DX: M81.0 Age-related osteoporosis without current pathological fracture (principal)

== ENCOUNTER → 2024-07-05 08:42 | Outpatient (BNVA) | payer MEDICAID, SELFPAY | PROVIDERS: PCP Internal Medicine; Visit Provider Internal Medicine Endocrinology, Diabetes & Metabolism | DX: M81.0 Age-related osteoporosis without current pathological fracture (principal) | CPT/HCPCS: 96372; J3111 ==

== ENCOUNTER 2024-08-06 08:59 | Outpatient (AMB) | payer MEDICAID, SELFPAY ==
--- NOTE | 2024-08-06 09:44 | AM.OFFVISNUR ---
Intake Visit Reasons: Evenity #6 Allergies No Known Allergies Allergy (Verified 04/23/24 23:22) Office Meds romosozumab-aqqg 210 mg/2.34 mL(105 mg/1.17 mL x2)subcutaneous syringe Performing Provider: Alexi Givens MD [place] [facility] [place] Administered by: Kemi Velazco RN on 08/06/24 09:45 Dose Route Admin Location Dispensed Lot Number Expiration Date [facility] Local Delivery Truck Driver 210 mg subcut bilateral upper 2.34 mL [id number] 09/06/26 [id number] AMGEN Total Dispensed Waste 2.34 mL 0 % Comments: Patient tolerated injection well and denies any problems with previous injections. Assessment & Plan Assessment & Plan Orders: Orders AMB Romosozumab Injection Patient Supplied Today M81.0 - Age-related osteoporosis without current pathological fracture Coding
== END 2024-08-06 09:39 | disposition home or self-care (01) ==
LOC: HO.ENCR 09:00
PROVIDERS: PCP Internal Medicine; Visit Provider Internal Medicine Endocrinology, Diabetes & Metabolism
DX: M81.0 Age-related osteoporosis without current pathological fracture (principal)

== ENCOUNTER → 2024-08-06 08:59 | Outpatient (BNVA) | payer MEDICAID, SELFPAY | PROVIDERS: PCP Internal Medicine; Visit Provider Internal Medicine Endocrinology, Diabetes & Metabolism | DX: M81.0 Age-related osteoporosis without current pathological fracture (principal) | CPT/HCPCS: 96372; J3111 ==

== ENCOUNTER 2024-08-15 08:58 | Outpatient (REF) | payer MEDICARE, MEDICAID, SELFPAY ==
--- OUTSIDE RECORDS SUMMARY | 2024-08-15 09:14 | XMS_ITS | Clinical Summary ---
Author Organization [facility] Address [address] [place] [phone] Phone Care Team Providers Care Crane Rigger Name Role Phone Donna Romero MD Primary Care Provider Allergies No known active allergies Medications nabumetone (RELAFEN) 500 mg tablet Take 1 tablet (500 mg total) by mouth 2 (two) times a day. Active omeprazole (PriLOSEC) [address] capsule Take 1 capsule (20 mg total) by mouth 1 (one) time each day. 4 Active Oxygen Therapy (O2) gas 2 L/min if needed. Inhale into the lungs. Oxygen Historical (HISTORICAL [...] to 7 days. 84 mL 5 Active atorvastatin (LIPITOR) 10 mg tablet Take 1 tablet (10 mg total) by mouth at bedtime. 5 Active fluticasone-umec lidinium-vilante rol (Trelegy Ellipta) 200-62.5-25 mcg inhaler Inhale 1 puff (200 mcg total) by mouth 1 (one) time each day. Rinse mouth with water after use to reduce aftertaste and incidence of candidiasis. Do not swallow. 1 each 11 5 026 Active magnesium oxide (MAG-OX) 400 mg magnesium tablet Take 1 tablet (400 mg total) by mouth 1 (one) time each day. Active cholecalciferol (Vitamin D3) 5,000 Units tablet Take 1 tablet (5,000 Units total) by mouth 1 (one) time each day. Active midodrine (PROAMATINE) 5 mg tablet Take 1 tablet (5 mg total) by mouth 3 (three) times a day before meals. 270 each 3 5 026 Active albuterol HFA (PROAIR HFA ; PROVENTIL HFA ; VENTOLIN HFA) 90 mcg/actuation inhaler Inhale 2 puffs by mouth every 6 (six) hours if needed for wheezing. 6.7 g 11 5 026 Active nicotine (NICODERM CQ) 21 mg/[address] 1 patch on the skin 1 (one) time each day at the same time. 14 each 5 Active Active Problems Problem Noted Date Diagnosed Date History of lung cancer 07/22/2024 Assessment & Plan (07/23/2024 11:05 AM EDT): Ms. Zelaya is a 68 y.o. female who in May 2020 underwent a robotic right upper lobectomy for stage Ia squamous cell carcinoma and who is also being followed for an anterior mediastinal mass. Her most recent chest CT surveillance scan was performed on July 09, 2024. CT scan showed stable 15 mm ill-defined groundglass nodule with associated segmental bronchiectasis in the left upper lobe, stable 6 mm juxtapleural left lower lobe nodule, stable 5 mm right middle lobe nodule, and stable 2.7 cm cystic lesion with mild peripheral nodularity in the right upper lobe. No pleural effusion or pneumothorax. Patient will continued [address] scans, the next one to be done in July 2024 and will have a follow up in the office with an BRIT after the scan. As for nicotine cessation, a prescription for nicotine patch will be called into her pharmacy. 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 She is advised to call the office with any questions or concerns. Shortness of breath 06/20/2024 Weakness generalized 04/05/2024 Hypotension 04/04/2024 Assessment & Plan (06/25/2024 1:20 PM EDT): Patient has borderline low blood pressure but with a appropriately sized blood pressure cuff she has a systolic pressure greater than 106. And when she stands it stays above 100 without symptoms of hypoperfusion. She really had no ambulatory symptoms of hypoperfusion. I will check a a.m. serum cortisol level to see what that level is we will check an echocardiogram to ensure that there is no right heart failure issues causing the blood pressure to be a problem but at this point she is asymptomatic and she is really not officially orthostatic so I really would not pursue increasing her midodrine any further I have discussed with her and her daughter the signs and symptoms of progressive orthostatic hypotension and the need to call us if they occur but for now she is relatively asymptomatic on the midodrine and this may be simply an autonomic dysfunction problem Orders: Ambulatory referral to Cardiology Cortisol AM; Future Transthoracic echocardiogram (TTE) complete with PRN contrast, bubble, strain, and 3D order panel; Future Multifocal pneumonia 03/24/2024 Hiatal hernia 12/15/2021 Overview [...] Overview (01/13/2024): Last Assessment & Plan: Ms. Zelaya is a 66 yr. female who in [...] Encounters Date Type Department Care Team Description 07/23/2024 10:30 AM EDT Office Visit Thoracic Surgery - [place] [address] [facility] [address] [place] [phone] Emily Schuster NP History of lung cancer (Primary Dx) 07/19/2024 10:00 AM EDT Office Visit Pulmonolgy [facility] [address] [facility] [address] [place] [phone] Ana Flaherty MD Chronic obstructive pulmonary disease, unspecified COPD type (CMS/HCC V24, CMS/HCC V28) (Primary Dx); Nocturnal hypoxia; History of lung cancer 07/19/2024 9:00 AM EDT Ancillary Procedure Pulmonolgy - [place] [address] [facility] [address] [place] [phone] Chronic obstructive pulmonary disease, unspecified COPD type (CMS/HCC V24, CMS/HCC V28) 07/09/2024 9:45 AM EDT - 07/09/2024 11:59 PM EDT Hospital Encounter [facility] CT Scan [address] [place] [phone] History of lung cancer Discharge Disposition: Home or Self Care 06/25/2024 8:20 AM EDT Office Visit [facility] [address] [place] [phone] Brock Barr MD Hypotension (Primary Dx) from Last 3 Months Surgical History Surgery Date Site/Laterality Comments OTHER SURGICAL HISTORY PROCEDURE: MN RMVL LUNG OTH/THN PNUMEC RESXN-PLCTJ EMPHY LUNG OTHER SURGICAL HISTORY 06/03/2020 Right PROCEDURE: MN RESCJ&BRONCHOPLASTY PFRMD TM LOBEC/SGMECTOMY; COMMENT: RUL Wedge w/ completetion RUL lobectomy Medical History Medical History Date Comments Nocturnal hypoxia 04/24/2017 DX:Nocturnal h ypoxia Depression 04/24/2017 DX:Depression COPD (chronic obstructive pu lmonary disease) ([facility] V24, [facility] V28) DX:COPD (chronic o bstructive pulmonary disease) (HCC) Ventral hernia without obstr uction or gangrene DX:Ventral hernia without ob struction or gangrene Lung cancer ([facility] V24, [facility] V28) DX:Lung cancer (HCC) Hiatal hernia DX:Hiatal hernia Dysphagia DX:Dysphagia Esophageal reflux DX:Esophageal reflux Family History Medical History Relation Name Comments Hypertension Brother Hypertension Daughter Other: other Daughter Breast Mass Throat cancer Father Liver disease Mother Liver Cirrosis Relation Name Status Comments Brother Daughter Alive Father Mother Social History Tobacco Use Types Packs/Day Years Used Date Smoking Tobacco: Every Day Cigarettes Last attempted to quit: 05/11/2021 Smokeless Tobacco: Never Tobacco Cessation:Ready to Q uit: Not Asked; Counseling Given: Not Answered Comments:Smoking 1 cig daily Alcohol Use Standard Drinks/Week Comments No 0 [...] for your loved ones. For example, child day care teacher or elderly care for an older adult? [...] Sign Reading Time Taken Comments Blood Pressure 105/75 07/23/2024 10:28 AM EDT Pulse 80 07/23/2024 10:28 AM EDT Temperature 36.8 C (98.2 F) 07/23/2024 10:28 AM EDT Respiratory Rate 16 07/23/2024 10:28 AM EDT Oxygen Saturation 96% 07/23/2024 10:28 AM EDT Inhaled Oxygen Concentration - - Weight 42.9 kg (94 lb 8 oz) 07/23/2024 10:28 AM EDT Height 149.9 cm (4' 11 ) 07/23/2024 10:28 AM EDT Body Mass Index 19.09 07/23/2024 10:28 AM EDT Plan of Treatment Upcoming Encounters Date Type Department Care Team (Late st Contact Info) Description 08/22/2024 7:00 AM EDT Ancillary Procedure [facility] [address] [facility] [address] [place] [phone] 12/18/2024 8:40 AM EST Office Visit [facility] [address] [place] [phone] Sandra Malone NP [address] [place] [address] [address] [place] [address] 01/22/2025 9:30 AM EST Office Visit Pulmonolgy - [place] [address] [facility] [address] [place] [phone] Ana Flaherty MD [address] [facility] [address] [place] [address] Health Maintenance Due Date Last Done Comments Breast Cancer Screening 1955 DTaP,Tdap,and Td Vaccines (1 - Tdap) 1973 RSV Immunization Adult Patients (1 - Risk 60-74 years 1-dose series) 2014 Zoster Vaccines (2 of 2) 07/09/2018 05/14/2018, 09/07 Cholesterol Screening (Lipid Panel) 01/05/2022 Colorectal Cancer Screening: Colonoscopy 01/05/2022 Depression Screening 01/05/2022 Hepatitis C Screening 01/05/2022 Medicare Annual Wellness Visit 01/05/2022 Osteoporosis Screening (Bone Density Screening) 01/05/2022 COVID-19 Vaccine ( season) 2023 05/15/2021, 11/15/2020, 05/17/2020, Additional history exists Influenza Vaccine (#1) 2024 , 11/17/2016, 12/10/2015, Additional history exists Social [...] Procedure Name Priority Date/Time Associated Diagnosis Comments PULMONARY FUNCTION TESTING Routine 07/19/2024 8:53 AM EDT Chronic obstructive pulmonary disease, unspecified COPD type (CMS/HCC V24, CMS/HCC V28) CT CHEST WO CONTRAST Routine 07/09/2024 10:14 AM EDT History of lung cancer CORTISOL AM Routine 06/25/2024 9:21 AM EDT from Last 3 Months Results * Pulmonary function testing: Spirometry with Bronchodilator, Carbon Monoxide Diffusing Capacity (07/19/2024 8:53 AM EDT) Impressions Ana Flaherty MD - 07/19/2024 8:53 AM EDT 07/19/2024 Spirometry FEV1 is 55% normal, FVC is 61% predicted, FEV1/FVC ratio is decreased, no improvement in FEV1 post bronchodilators Lung volumes TLC is 80% normal, RV/TLC 128% predicted Diffusion DLCO severely decreased at 21% predicted Summary, this PFT is consistent with severe COPD/emphysema us Ana Flaherty MD PFT ORDERABLES Final Result * CT Chest wo Contrast (07/09/2024 10:14 AM EDT) Anatomical Region Laterality Modality Body Computed Tomogra phy 07/09/2024 2:01 PM EDT Impressions 07/09/2024 2:[address] appearance of the chest. -------- FINAL REPORT -------- Dictated By: Godwin Pritchett Dictated Date: 07/09/2024 14:01 ET Assigned Physician: Godwin Pritchett Reviewed and Electronically Signed By: Godwin Pritchett Signed Date: 07/09/2024 14:16 ET Workstation ID: [id number] Transcribed By: Self Edit Transcribed Date: 07/09/2024 14:01 ET Narrative 07/09/2024 2:16 PM EDT PROCEDURE: CT of the chest without intravenous contrast. TECHNIQUE: CT of the chest without intravenous contrast administration. Coronal and sagittal reformats and MIP reconstructions were created. Dose length product: 106 mGy-cm. HISTORY: s/p right upper lobectomy for stage Ia squamous cell carcinoma COMPARISON: 04/04/2024. FINDINGS: LUNGS/PLEURA: Small amount of aspirated debris in the trachea. Right upper lobectomy. Mild centrilobular emphysema. Stable mild scarring at the lung apices. Stable 15 mm ill-defined groundglass nodule with associated segmental bronchiectasis in the left upper lobe, series 3 image 60. Stable 6 mm juxtapleural left lower lobe nodule, image 191. Stable 5 mm right middle lobe nodule, image 177. Stable bandlike opacities in the lateral right mid lung suggestive of scarring. Stable 2.7 cm cystic lesion with mild peripheral nodularity in the right upper lobe, image 81. No pleural effusion or pneumothorax. MEDIASTINUM/GISSELL: Stable low-attenuation soft tissue or complicated fluid collection in the anterior mediastinum. Small hiatal hernia No appreciable hilar lymphadenopathy on limited noncontrast evaluation. VASCULATURE: Normal caliber pulmonary arteries. 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 Mild atherosclerotic calcification. CARDIAC: Normal heart size. Mild aortic annular and coronary artery calcification. CHEST WALL: No axillary or supraclavicular lymphadenopathy. LIMITED ABDOMEN: Unremarkable. BONES: Degenerative changes of the spine. Partially visible lower cervical posterior decompression and fusion hardware. Procedure Note Godwin Pritchett MD - 07/09/2024 PROCEDURE: CT of the chest without intravenous contrast. TECHNIQUE: CT of the chest without intravenous contrast administration.Coronal and sagittal reformats and MIP reconstructions were created. Dose length product: 106 mGy-cm. HISTORY: s/p right upper lobectomy for stage Ia squamous cell carcinoma COMPARISON: 04/04/2024. FINDINGS: LUNGS/PLEURA: Small amount of aspirated debris in the trachea. Rightupper lobectomy. Mild centrilobular emphysema. Stable mild scarring atthe lung apices. Stable 15 mm ill-defined groundglass nodule withassociated segmental bronchiectasis in the left upper lobe, series 3 image60. Stable 6 mm juxtapleural left lower lobe nodule, image 191. Stable 5mm right middle lobe nodule, image 177. Stable bandlike opacities in thelateral right mid lung suggestive of scarring. Stable 2.7 cm cystic lesionwith mild peripheral nodularity in the right upper lobe, image 81. Nopleural effusion or pneumothorax. MEDIASTINUM/GISSELL: Stable low-attenuation soft tissue or complicated fluidcollection in the anterior mediastinum. Small hiatal hernia Noappreciable hilar lymphadenopathy on limited noncontrast evaluation. VASCULATURE: Normal caliber pulmonary arteries. Anomalous origin of thevertebral artery from the aortic arch. Mild atheroscleroticcalcification. CARDIAC: Normal heart size. Mild aortic annular and coronary arterycalcification. CHEST WALL: No axillary or supraclavicular lymphadenopathy. LIMITED ABDOMEN: Unremarkable. BONES: Degenerative changes of the spine. Partially visible lowercervical posterior decompression and fusion hardware. IMPRESSION: Stable CT appearance of the chest. -------- FINAL REPORT -------- Dictated By: Godwin Pritchett Dictated Date: 07/09/2024 14:01 ET Assigned Physician: Godwin Pritchett Reviewed and Electronically Signed By: Godwin Pritchett Signed Date: 07/09/2024 14:16 ET Workstation ID: [id number] Transcribed By: Self Edit Transcribed Date: 07/09/2024 14:01 ET Emily Schuster NP IMG CT PROCEDURES Final Res ult * Cortisol AM (06/25/2024 9:21 AM EDT) Cortisol AM 11.1 6.2 - 19.4 ug/dL [facility] 1 06/25/2024 9:21 AM EDT 06/25/2024 Narrative [facility] 1 - 06/26/2024 12:07 PM EDT Performed at: 01 - [facility] [address] [id number] Rn Compliance: Cristiana Ramírez MD, Phone: [phone] us Brock Barr MD LAB BLOOD ORDERABLES Final Res ult [facility] 1 from Last 3 Months Insurance MEDICAID - [place] MEDICARE Advance Directives * Full Code - Default [...] currently active code status orders. Care Teams Crane Rigger Relationship Specialty Start Date End Date Donna Romero MD [address] [place] [address] PCP - General Internal Medicine 10/30/18
--- OUTSIDE RECORDS SUMMARY | 2024-08-15 09:15 | XMS_ITS | Patient Health Record ---
Author Organization [facility] Address [address] [place] [address] Care Team Providers Care Electrician Substation Name Role Phone Lary (RETIRED) Jorge EDMOND Primary Care Provide r Unavailable Steve Schmidt Jr Unavailable [phone] Reason For Referral No Information Medications Medication SIG (Take, Route, Fr equency, Duration) Notes Start Date End Date Status Abilify 2mg Active Chantix Active Baclofen 10mg Active Qual-Tussin Active Spiriva HandiHaler A ctive Simvastatin 10mg Act kenrick Combivent Active Tylenol with Codeine #3 Active traMADol HCl Active Alendronate Sodium 70mg Active Problems Problem Type SNOMED Code ICD Code Onset Dates Problem Status W/U Status Risk Notes Problem Screening for malignant neoplasm of colon (550205238) Special screening for malignant neoplasms, colon (V76.51) Active confirmed Plan Of Treatment No Information Insurance Providers Payer Name Payer Address Payer Phone Subscriber Number Group Number Insured Name Patient Relationship to Insured Coverage Start Date Coverage End Date MEDICAID OF [facility] [address] [place] [address] [id number] CARLOTA ZELAYA Self - patient is the insured Medical (General) History Medical History History ICD Code depression osteoporosis muscle spasms COPD elevated cholesterol back pain degenerative joint disease involving the back Surgical History Surgery Date(Month/Year) cervical disc fusion
== END 2024-08-15 08:59 | disposition home or self-care (01) ==
LOC: HO.MAMMO 08:58
PROVIDERS: PCP Internal Medicine; Visit Provider Internal Medicine
DX: Z12.31 Encounter for screening mammogram for malignant neoplasm of breast (principal)
CPT/HCPCS: 77063; 77067

== ENCOUNTER → 2024-08-15 09:30 | Outpatient (BNV) | payer MEDICARE, MEDICAID, SELFPAY | PROVIDERS: PCP Internal Medicine; Visit Provider Internal Medicine | DX: Z12.31 Encounter for screening mammogram for malignant neoplasm of breast (principal) | CPT/HCPCS: 77063; 77067 ==

== ENCOUNTER 2024-09-11 09:34 | Outpatient (AMB) | payer MEDICARE, MEDICAID, SELFPAY ==
--- OUTSIDE RECORDS SUMMARY | 2024-09-11 10:00 | XMS_ITS | Patient Health Record ---
Author Organization [facility] Address [address] [place] [address] Care Team Providers Care Reports Analyst Name Role Phone Lary (RETIRED) Jorge EDMOND Primary Care Provide r Unavailable Steve Schmidt Jr Unavailable [phone] Reason For Referral No Information Medications Medication SIG (Take, Route, Fr equency, Duration) Notes Start Date End Date Status Abilify 2mg Active Chantix Active Baclofen 10mg Active Qual-Tussin Active Spiriva HandiHaler A ctive Simvastatin 10mg Act kernick Combivent Active Tylenol with Codeine #3 Active traMADol HCl Active Alendronate Sodium 70mg Active Problems Problem Type SNOMED Code ICD Code Onset Dates Problem Status W/U Status Risk Notes Problem Screening for malignant neoplasm of colon (047160766) Special screening for malignant neoplasms, colon (V76.51) Active confirmed Plan Of Treatment No Information Insurance Providers Payer Name Payer Address Payer Phone Subscriber Number Group Number Insured Name Patient Relationship to Insured Coverage Start Date Coverage End Date [facility] [address] [place] [address] [phone] [id number] CARLOTA ZELAYA Self - patient is the insured Medical (General) History Medical History History ICD Code depression osteoporosis muscle spasms COPD elevated cholesterol back pain degenerative joint disease involving the back Surgical History Surgery Date(Month/Year) cervical disc fusion
--- OUTSIDE RECORDS SUMMARY | 2024-09-11 10:00 | XMS_ITS | Encounter Summary ---
Author Organization [facility] Address [address] [place] [address] Care Team Providers Care X Ray Nurse Name Role Phone Donna Romero MD Primary Care Provider [phone] Reason for Visit * Reason Onset Date Comments Med Refill 08/23/2024 Encounter Details Date Type Department Care Team ([facility] st Contact Info) Description 08/23/2024 [facility] [place] [address] [facility] [address] [place] [phone] Ana Flaherty MD [address] [facility] [address] [place] [address] Med Refill Social History Tobacco Use Types Packs/Day Years Used Date Smoking Tobacco: Every Day Cigarettes Last attempted to quit: 05/11/2021 Smokeless Tobacco: Never Comments:Smoking 1 cig daily Alcohol Use Standard [...] your doctor or pharmacy? Not on file 02/27/2 025 Financial Risk Answer Date Recorded How [...] for your loved ones. For example, children's zoo caretaker or elderly care for an older adult? [...] PM EST documented as of this encounter Progress Notes * Ana Flaherty MD - 08/23/2024 5:40 PM EDT Spoke to her, PCP already send it * Santiago Kan [place] - 08/23/2024 11:26 AM EDT NATHALY 07/19/24 * Pita Palacios - 08/23/2024 9:36 AM EDT Patient called to request refill for NICOTINE patches- patient stated that when she went to office and they prescribe them for the patient , how ever patient was instructed to ask her pulmoDr, to continue filling rx . Please advice documented in this encounter Plan of Treatment Upcoming Encounters Date Type Department Care Team (Late st Contact Info) Description 12/18/2024 8:40 AM EST Office Visit [facility] [address] [place] [address] [address] [place] [address] Sandra Malone, BERENICE [address] [place] [address] [address] [place] [address] 01/22/2025 9:30 AM EST Office Visit Pulmonolgy - [place] [address] [facility] [address] [place] [address] Ana Flaherty MD [address] [facility] [address] [place] [address] documented as of this encounter Visit Diagnoses Not on filedocumented in this encounter Care Teams X Ray Nurse Relationship Specialty Start Date End Date Donna Romero MD [address] [place] [address] PCP - General Internal Medicine 10/30/18 documented as of this encounter
--- NOTE | 2024-09-11 10:12 | AM.OFFVISNUR ---
Intake Visit Reasons: Evenity #7 Allergies No Known Allergies Allergy (Verified 04/23/24 23:22) Office Meds romosozumab-aqqg 210 mg/2.34 mL(105 mg/1.17 mL x2)subcutaneous syringe Performing Provider: Alexi Givens MD Performing Location: [facility] Endocrinology Administered by: Jojo Hunt RN on 09/11/24 10:12 Dose Route Admin Location Dispensed Lot Number Expiration Date ND Locomotive Mechanic 210 mg subcut Bilateral upper arms 2.34 mL [id number] 11/06/26 25570-695-06 AMGEN Total Dispensed Waste 2.34 mL 0 % Comments: No adverse reactions reported from previous injection. Pt tolerated injection well. Pt scheduled in 4 weeks for next appt. No further questions at this time. Assessment & Plan Assessment & Plan Orders: Orders AMB Romosozumab Injection Patient Supplied Today M81.0 - Age-related osteoporosis without current pathological fracture Coding
== END 2024-09-11 10:11 | disposition home or self-care (01) ==
LOC: HO.ENCR 09:35
PROVIDERS: PCP Internal Medicine; Visit Provider Internal Medicine Endocrinology, Diabetes & Metabolism
DX: M81.0 Age-related osteoporosis without current pathological fracture (principal)

== ENCOUNTER → 2024-09-11 09:34 | Outpatient (BNVA) | payer MEDICARE, MEDICAID, SELFPAY | PROVIDERS: PCP Internal Medicine; Visit Provider Internal Medicine Endocrinology, Diabetes & Metabolism | DX: M81.0 Age-related osteoporosis without current pathological fracture (principal) | CPT/HCPCS: 96372; J3111 ==

== ENCOUNTER 2024-10-09 09:02 | Outpatient (AMB) | payer MEDICARE, MEDICAID, SELFPAY ==
--- NOTE | 2024-10-09 09:38 | AM.OFFVISNUR ---
Intake Visit Reasons: Evenity #8 Allergies No Known Allergies Allergy (Verified 04/23/24 23:22) Office Meds romosozumab-aqqg 210 mg/2.34 mL(105 mg/1.17 mL x2)subcutaneous syringe Performing Provider: Alexi Givens MD Performing Location: [facility] [place] Endocrinology Administered by: Jojo Hunt RN on 10/09/24 09:38 Dose Route Admin Location Dispensed Lot Number Expiration Date NDC Foundry Finisher 210 mg subcut bilateral upper arms 2.34 mL [id number] 11/06/26 Total Dispensed Waste 2.34 mL 0 % Comments: No adverse reactions reported from previous injection. Pt tolerated injection well. Pt scheduled in 4 weeks for next appt. No further questions at this time. Assessment & Plan Assessment & Plan Orders: Orders AMB Romosozumab Injection Patient Supplied Today M81.0 - Age-related osteoporosis without current pathological fracture Coding
--- OUTSIDE RECORDS SUMMARY | 2024-10-09 09:52 | XMS_ITS | Encounter Summary ---
Author Organization [facility] Address [address] [place] [address] Care Team Providers Care Combatant Swimmer Name Role Phone Donna Romero Md, MD Primary Care Provider Unavailable Mannie Morillo MD Unavailable Josep Givens PA-C Unavailable [phone] Reason for Visit * Reason Comments Imaging Review Chest CT 05/20/21 Encounter Details Date Type Department Care Team Description 06/09/2021 Abstract [facility] Medical [facility] Thoracic Surgery [place] [address] [facility] [address] [place] [phone] Josep Givens PA-C [address] [facility] [address] [place] [phone] Social History Tobacco Use Types Packs/Day Years [...] on filedocumented in this encounter Care Teams Combatant Swimmer Relationship Specialty Start Date End Date Donna Romero MD, MD PCP - General Internal Medicine 07/11/20 Mannie Morillo MD Specialist Lung Cancer Rn Home Health 06/03/21 Josep Givens PA-C [address] [place] [phone] Specialist Thoracic Surgery 07/08/22 documented as of this encounter
--- OUTSIDE RECORDS SUMMARY | 2024-10-09 09:52 | XMS_ITS | Encounter Summary ---
Author Organization [facility] Address [address] [facility] [place] [address] Care Team Providers Care Foot Piece Assembler Name Role Phone Donna Romero Md, MD Primary Care Provider Unavailable Mannie Morillo MD Unavailable Josep Givens PA-C Unavailable [phone] Reason for Visit * Reason Comments E-prescribe Rx Request Encounter Details Date Type Department Care Team Description 06/20/2021 Refill Pulmonology - [place] 175 [facility] [address] [place] [phone] Ana Flaherty MD 175 [place] [address] E-prescribe Rx Request Social History [...] Miscellaneous Notes * Telephone Encounter - Geraldine Perez - 06/22/2021 10:06 AM EDT Patient would like script to be: E-PRESCRIBED/FAXED TO PHARMACY WHEN WAS THE PATIENT'S LAST APPOINTMENT IN ADULT MEDICINE? 04/16/2021 WHEN WAS THE LAST TIME THE PATIENT [...] / Plan[place] / Product Type: MEDICAID [id number] documented in this encounter Plan of Treatment Not on file documented as of this encounter Visit Diagnoses Not on filedocumented in this encounter Care Teams Foot Piece Assembler Relationship Specialty Start Date End Date Donna Romero MD, MD PCP - General Internal Medicine 07/11/20 Mannie Morillo MD Specialist Lung Cancer Community Arts Centre Manager 06/03/21 Josep Givens PA-C [address] [place] [phone] Specialist Thoracic Surgery 07/08/22 documented as of this encounter
--- OUTSIDE RECORDS SUMMARY | 2024-10-09 09:52 | XMS_ITS | Encounter Summary ---
Author Organization [facility] Address [address] [facility] [place] [address] Care Team Providers Care Swamper Name Role Phone Donna Romero Md, MD Primary Care Provider Unavailable Mannie Morillo MD Unavailable Josep Givens PA-C Unavailable [phone] Reason for Visit * Reason Comments E-prescribe Rx Request Encounter Details Date Type Department Care Team Description 10/15/2022 Refill Pulmonology - [place] 175 [facility] [address] [place] [phone] Ana Flaherty MD 175 [place] [phone] E-prescribe Rx Request Social History Tobacco Use [...] (HCC) documented in this encounter Care Teams Swamper Relationship Specialty Start Date End Date Donna Romero MD, MD PCP - General Internal Medicine 07/11/20 Mannie Morillo MD Specialist Lung Cancer Behavioral Health Care Manager 06/03/21 Josep Givens PA-C [address] [place] [phone] Specialist Thoracic Surgery 07/08/22 documented as of this encounter
--- OUTSIDE RECORDS SUMMARY | 2024-10-09 09:52 | XMS_ITS | Clinical Summary ---
Author Organization [facility] Address [address] [place] [phone] Phone Care Team Providers Care Transit Proof Machine Operator Name Role Phone Donna Romero MD Primary Care Provider [phone] Allergies No known active allergies Medications nabumetone [...] wheezing. 6.7 g 11 5 026 Active albuterol HFA (PROAIR HFA ; PROVENTIL HFA ; VENTOLIN HFA) 90 mcg/actuation inhaler Inhale 2 puffs by mouth every 6 (six) hours if needed for wheezing. 6.7 g 11 5 026 Active nicotine (NICODERM CQ) 21 mg/[address] 1 patch on the skin 1 (one) time each day at the same time. 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 She is advised to call the [...] Encounters Date Type Department Care Team Description 08/23/2024 Telephone Pulmonolgy - [place] [address] [facility] [address] [place] [address] Ana Flaherty MD 08/22/2024 7:00 AM EDT Ancillary Procedure [facility] [address] [place] [address] Hypotension 08/16/2024 Telephone Pulmonolgy - [place] [address] [facility] [address] [place] [phone] Ana Flaherty MD 07/23/2024 10:30 AM EDT Office Visit Thoracic Surgery - [place] [address] [facility] [address] [place] [address] Emily Schuster NP History of lung cancer (Primary Dx) 07/19/2024 10:00 AM EDT Office Visit Pulmonolgy [facility] [address] [facility] [address] [place] [address] Ana Flaherty MD Chronic obstructive pulmonary disease, unspecified COPD type (CMS/HCC V24, CMS/HCC V28) (Primary Dx); Nocturnal hypoxia; History of lung cancer 07/19/2024 9:00 AM EDT Ancillary Procedure Pulmonolgy [facility] [address] [facility] [address] [place] [address] Chronic obstructive pulmonary disease, unspecified COPD type (CMS/HCC V24, CMS/HCC V28) 07/09/2024 9:45 AM EDT - 07/09/2024 11:59 PM EDT Hospital Encounter [facility] CT Scan [address] [place] [address] History of lung cancer Discharge Disposition: Home or Self Care from Last 3 Months Surgical History Surgery Date Site/Laterality Comments OTHER SURGICAL HISTORY PROCEDURE: NE RMVL LUNG OTH/THN PNUMEC RESXN-PLCTJ EMPHY LUNG OTHER SURGICAL HISTORY 06/03/2020 Right PROCEDURE: NE RESCJ&BRONCHOPLASTY PFRMD TM LOBEC/SGMECTOMY; COMMENT: RUL Wedge w/ completetion RUL lobectomy Medical History Medical History Date Comments Nocturnal hypoxia 04/24/2017 DX:Nocturnal h ypoxia Depression 04/24/2017 DX:Depression COPD (chronic obstructive pu lmonary disease) ([facility]/HCC V24, CMS/[facility] V28) DX:COPD (chronic o bstructive pulmonary disease) [...] your loved ones. For example, child care team lead or elderly care for an older adult? [...] Sign Reading Time Taken Comments Blood Pressure 147/81 08/22/2024 7:49 AM EDT Pulse 80 07/23/2024 10:28 AM EDT Temperature 36.8 C (98.2 F) 07/23/2024 10:28 AM EDT Respiratory Rate 16 07/23/2024 10:28 AM EDT Oxygen Saturation 96% 07/23/2024 10:28 AM EDT Inhaled Oxygen Concentration - - Weight 42.2 kg (93 lb) 08/22/2024 7:49 AM EDT Height 149.9 cm (4' 11 ) 08/22/2024 7:49 AM EDT Body Mass Index 18.78 08/22/2024 7:49 AM EDT Plan of Treatment Upcoming Encounters Date Type Department Care Team (Late st Contact Info) Description 12/18/2024 8:40 AM EST Office Visit [facility] [address] [place] [address] [place] [phone] Sandra Malone NP [address] [place] [address] [address] [place] [phone] 01/22/2025 9:30 AM EST Office Visit Pulmonolgy - [place] [address] [place] [address] Ana Flaherty MD [address] [place] [phone] Health Maintenance Due Date Last Done Comments Breast Cancer Screening 1955 DTaP,Tdap,and Td Vaccines (1 - Tdap) 1973 RSV Immunization Adult Patients (1 - Risk 60-74 years 1-dose series) 2014 Zoster Vaccines (2 of 2) 07/09/2018 05/14/2018, 09/07 Cholesterol Screening (Lipid Panel) 01/05/2022 Colorectal Cancer Screening: Colonoscopy 01/05/2022 Hepatitis C Screening 01/05/2022 Medicare Annual Wellness Visit 01/05/2022 Osteoporosis Screening (Bone Density Screening) 01/05/2022 COVID-19 Vaccine ( season) 2023 05/15/2021, 11/15/2020, 05/17/2020, Additional history exists Depression Screening 02/08/2024 Influenza Vaccine (#1) 2024 , 11/17/2016, 12/10/2015, [...] Procedure Name Priority Date/Time Associated Diagnosis Comments TRANSTHORACIC ECHOCARDIOGRAM (TTE) COMPLETE Routine 08/22/2024 7:49 AM EDT Hypotension PULMONARY FUNCTION TESTING Routine 07/19/2024 8:53 AM EDT Chronic obstructive pulmonary disease, unspecified COPD type (CMS/HCC V24, CMS/HCC V28) CT CHEST WO CONTRAST Routine 07/09/2024 10:14 AM EDT History of lung cancer from Last 3 Months Results * (ABNORMAL) TRANSTHORACIC ECHOCARDIOGRAM (TTE) COMPLETE (08/22/2024 7:49 AM EDT) Left Atrium Minor [place] 4.3 cm CV PACS Left Atrium Major [place] 3.9 cm CV PACS LA Area Sys (A2C) 14 cm2 CV PACS LA Area Sys (A4C) 10 cm2 CV PACS LA Volume (BP) 28 mL CV PACS RA Area 10.2 cm2 CV PACS RA 2D Volume 22 mL CV PACS AV Mean Gradient 3 mmHg CV PACS AV Mean Gradient 3 mmHg CV PACS AV Mean Gradient 3 mmHg CV PACS Ao VTI 28.8 cm CV PACS AV Peak Quinton 1.3 m/s CV PACS AV Peak Gradient 7 mmHg CV PACS AV Area Continuity Equation 1.3 cm2 CV PACS AV Area Peak Velocity 1.2 cm2 CV PACS Aortic Sinus Valsalva 2.7 cm CV PACS Ascending Aorta 3.1 cm CV PACS IVC Proximal 1.8 cm CV PACS IVSD 0.7 0.6 - 0.9 cm CV PACS LVIDD 3.6(A) 3.8 - 5.2 cm CV PACS LVIDS 2.5 2.2 - 3.5 cm CV PACS LVOT Diameter 1.5 cm CV PACS LVOT Mean Quinton 0.5 m/s CV PACS LVOT Mean Grad 1 mmHg CV PACS LVOT Mean Grad 1 mmHg CV PACS LVOT Peak VTI 21.3 cm CV PACS LVOT Peak Quinton 0.9 m/s CV PACS LVOT Peak Gradient 3 mmHg CV PACS LVPWD 0.8 0.6 - 0.9 cm CV PACS MV E' Tissue Velocity Lateral 9 cm/s CV PACS MV E' Tissue Velocity Septal 6 cm/s CV PACS LVOT Area 1.8 cm2 CV PACS LVOT Stroke Volume 38 mL CV PACS E Wave Deceleration Time 239 119 - 242 ms CV PACS MV Peak A Quinton 0.78 m/s CV PACS MV Peak E Quinton 0.67 m/s CV PACS MV Mean Gradient 1 mmHg CV PACS MV Mean Gradient 1 mmHg CV PACS MV Mean Gradient 1 mmHg CV PACS MV VTI 29.0 cm CV PACS Mitral Valve Max Velocity 1.0 m/s CV PACS MV Peak Gradient 4 mmHg CV PACS MV Area Continuity Equation 1.3 cm2 CV PACS PV Acceleration Time 169 ms CV PACS PV Acceleration Time 162 ms CV PACS PV Acceleration Time 166 ms CV PACS RV Diastolic Basal Dimension 3.0 2.5 - 4.1 cm CV PACS RV S' 10 cm/s CV PACS TAPSE 18 mm CV PACS TR Peak Velocity 2.10 m/s CV PACS TR Peak Gradient 18 mmHg CV PACS E/E' Ratio Septal 11 CV PACS E/E' Ratio Averaged 9 CV PACS LVOT Stroke Index 29 mL/m2 CV PACS Relative Wall Thickness ratio 0.44 CV PACS LVOT:AV VTI Index 0.74 CV PACS FS 31 % CV PACS LV Mass 2D 72 g CV PACS Ascending Aorta Index 2.33 cm/m2 CV PACS MV VTI:LVOT VTI ratio 1.4 CV PACS LVOT flow 88 mL/s CV PACS RA 2D Volume Index 17 mL/m2 CV PACS IRENE Index (VTI) 0.98 cm2/m2 CV PACS IRENE Index (Pk Quinton) 0.90 cm2/m2 CV PACS LVIDD Index 2.71 cm/m2 CV PACS LVIDS Index 1.88 cm/m2 CV PACS AV Velocity Ratio 0.69 CV PACS E/A Ratio 0.9 CV PACS E/E' Ratio Lateral 7 CV PACS LA Volume Index (BP) 21 mL/m2 CV PACS LV Mass Index 2D 54 g/m2 CV PACS BSA 1.33 m2 CV PACS Anatomical Region Laterality Modality Ultrasound Narrative 08/23/2024 7:00 PM EDT No regional LV wall motion abnormalities noted. Left ventricle cavity size is normal. Left ventricular systolic function is in the normal range with an ejection fraction of 60-65%. Left ventricle wall thickness is normal. Right ventricle cavity is normal. Right ventricular systolic function is normal. Aortic valve leaflets are mildly thickened. Left Ventricle Left ventricle cavity size is normal. Wall thickness is normal. Systolic function is normal with an ejection fraction of 60-65%. There are no regional LV wall motion abnormalities. There is no diastolic dysfunction. Right Ventricle Right ventricle cavity appears normal. Systolic function is normal. Left Atrium Left atrium cavity size is normal. Right Atrium Right atrium cavity is normal. IVC/SVC Inferior vena cava structure is normal. RA pressures is estimated to be 3 mmHg (IVC diameter <21 mm and decreases >50% during inspiration). Mitral Valve The leaflets are mildly thickened. There is mild annular calcification. There is trace regurgitation. There is no evidence of mitral valve stenosis. Tricuspid Valve Tricuspid valve structure is normal. There is trace regurgitation. There is no evidence of tricuspid valve stenosis. Aortic Valve The aortic valve is trileaflet. The leaflets are mildly thickened. There is no regurgitation or stenosis. Pulmonic Valve The pulmonic valve was not well visualized. No significant pulmonic valve regurgitation. There is no evidence of pulmonic valve stenosis. Ascending Aorta The aorta appears normal in size. Pericardium Pericardium appears normal. There is no pericardial effusion. Study Details Overall the study quality was technically difficult. Brock Barr MD CV ECHO PROCEDURES Final Resul t * Pulmonary function testing: Spirometry with Bronchodilator, [...] this PFT is consistent with severe COPD/emphysema Ana Flaherty MD PFT ORDERABLES Final Result [...] Signed Date: 07/09/2024 14:16 ET Workstation ID: [id number] Transcribed By: Self Edit Transcribed Date: 07/09/2024 [...] Signed Date: 07/09/2024 14:16 ET Workstation ID: [id number] Transcribed By: Self Edit Transcribed Date: 07/09/2024 14:01 ET Emily Schuster NP IMG CT PROCEDURES Final Res ult from Last 3 Months Insurance MEDICAID - [...] currently active code status orders. Care Teams Transit Proof Machine Operator Relationship Specialty Start Date End Date Donna Romero MD [address] [place] [address] PCP - General Internal Medicine 10/30/18
--- OUTSIDE RECORDS SUMMARY | 2024-10-09 09:52 | XMS_ITS | Encounter Summary ---
Author Organization [facility] Address [address] [facility] [place] [address] Care Team Providers Care Vehicle Care Specialist Name Role Phone Donna Romero Md, MD Primary Care Provider Unavailable Mannie Morillo MD Unavailable Josep Givens PA-C Unavailable [phone] Encounter Details Date Type Department Care Team Description 06/16/2022 Telephone Gastroenterology - [address] [place] [address] David Burton PA-C Social History Tobacco Use Types Packs/Day Years [...] AM EDT Booked Barium Swallow at [address] [facility] for patient on August 27 at 8:30am w/ arrival at 8:10am. Called the patient to notify of appointment details, including nothing to eat/drink after midnight. I also mailed an appointment letter. Order has been faxed to [phone]. documented in this encounter Plan of Treatment Not on file documented as of this encounter Visit Diagnoses Not on filedocumented in this encounter Care Teams Vehicle Care Specialist Relationship Specialty Start Date End Date Donna Rmoero MD, MD PCP - General Internal Medicine 07/11/20 Mannie Morillo MD Specialist Lung Cancer Upholstery Handler 06/03/21 Josep Givens PA-C [address] [place] [phone] Specialist Thoracic Surgery 07/08/22 documented as of this encounter
--- OUTSIDE RECORDS SUMMARY | 2024-10-09 09:52 | XMS_ITS | Encounter Summary ---
Author Organization [facility] Address [address] [facility] [place] [address] Care Team Providers Care Steam Presser Name Role Phone Donna Romero Md, MD Primary Care Provider Unavailable Mannie Morillo MD Unavailable Josep Givens PA-C Unavailable [phone] Encounter Details Date Type Department Care Team Description 06/30/2022 Orders Only Medical Records [address] [facility] [place] [address] Mannie Morillo MD [address] [place] [phone] Social History Tobacco Use Types Packs/Day Years [...] on filedocumented in this encounter Care Teams Steam Presser Relationship Specialty Start Date End Date Donna Romero MD, MD PCP - General Internal Medicine 07/11/20 Mannie Morillo MD Specialist Lung Cancer Yarn Carrier 06/03/21 Josep Givens PA-C [address] [place] [phone] Specialist Thoracic Surgery 07/08/22 documented as of this encounter
--- OUTSIDE RECORDS SUMMARY | 2024-10-09 09:52 | XMS_ITS | Encounter Summary ---
Author Organization [facility] Address [address] [facility] [place] [address] Care Team Providers Care Body Builder Apprentice Name Role Phone Donna Romero Md, MD Primary Care Provider Unavailable Mannie Morillo MD Unavailable Josep Givens PA-C Unavailable [phone] Reason for Visit * Reason Comments E-prescribe Rx Request Encounter Details Date Type Department Care Team Description 09/23/2023 Refill Gastroenterology - [address] [place] [phone] David Burton PA-C E-prescribe Rx Request Social History Tobacco Use [...] encounter Miscellaneous Notes * Telephone Encounter - Leena Patrick - 09/23/2023 1:20 PM EDT Vanda- 06/15/22 Nov- none documented in this encounter Plan of Treatment Not on file documented as of this encounter Visit Diagnoses Not on filedocumented in this encounter Care Teams Body Builder Apprentice Relationship Specialty Start Date End Date Donna Romero MD, MD PCP - General Internal Medicine 07/11/20 Mannie Morillo MD Specialist Lung Cancer Trackman 06/03/21 Josep Givens PA-C [address] [place] [phone] Specialist Thoracic Surgery 07/08/22 documented as of this encounter
--- OUTSIDE RECORDS SUMMARY | 2024-10-09 09:52 | XMS_ITS | Encounter Summary ---
Author Organization [facility] Address [address] [facility] [place] [address] Care Team Providers Care Rn Ostomy Name Role Phone Donna Romero Md, MD Primary Care Provider Unavailable Mannie Morillo MD Unavailable Josep Givens PA-C Unavailable [phone] Encounter Details Date Type Department Care Team Description 06/09/2021 Orders Only Medical Records [address] [facility] [place] [address] Mannie Morillo MD [address] [place] [id number] Social History Tobacco Use Types Packs/Day Years [...] on filedocumented in this encounter Care Teams Rn Ostomy Relationship Specialty Start Date End Date Donna Romero MD, MD PCP - General Internal Medicine 07/11/20 Mannie Morillo MD Specialist Lung Cancer Post Doctoral Researcher 06/03/21 Josep Givens PA-C [address] [place] [phone] Specialist Thoracic Surgery 07/08/22 documented as of this encounter
--- OUTSIDE RECORDS SUMMARY | 2024-10-09 09:52 | XMS_ITS | Encounter Summary ---
Author Organization [facility] Address [address] [facility] [place] [address] Care Team Providers Care Delivery Tech Name Role Phone Donna Romero Md, MD Primary Care Provider Unavailable Mannie Morillo MD Unavailable Josep Givens PA-C Unavailable [phone] Reason for Visit * Reason Comments E-prescribe Rx Request Encounter Details Date Type Department Care Team Description 09/26/2023 Refill Pulmonology - [place] 175 [facility] [address] [place] [phone] Ana Flaherty MD 175 [place] [phone] E-prescribe Rx Request Social History Tobacco Use [...] (HCC) documented in this encounter Care Teams Delivery Tech Relationship Specialty Start Date End Date Donna Romero MD, MD PCP - General Internal Medicine 07/11/20 Mannie Morillo MD Specialist Lung Cancer Decorator Street And Building 06/03/21 Josep Givens PA-C [address] [place] [phone] Specialist Thoracic Surgery 07/08/22 documented as of this encounter
--- OUTSIDE RECORDS SUMMARY | 2024-10-09 09:52 | XMS_ITS | Encounter Summary ---
Author Organization [facility] Address [address] [facility] [place] [address] Care Team Providers Care Operational Intelligence Analyst Name Role Phone Donna Romero Md, MD Primary Care Provider Unavailable Mannie Morillo MD Unavailable Josep Givens PA-C Unavailable [phone] Reason for Visit * Reason Comments E-prescribe Rx Request Encounter Details Date Type Department Care Team Description 09/23/2023 Refill Pulmonology - [place] 175 [facility] [address] [place] [phone] Ana Flaherty MD 175 [place] [phone] E-prescribe Rx Request Social History Tobacco Use [...] (HCC) documented in this encounter Care Teams Operational Intelligence Analyst Relationship Specialty Start Date End Date Donna Romero MD, MD PCP - General Internal Medicine 07/11/20 Mannie Morillo MD Specialist Lung Cancer Warehouse Shipping Associate 06/03/21 Josep Givens PA-C [address] [place] [phone] Specialist Thoracic Surgery 07/08/22 documented as of this encounter
--- OUTSIDE RECORDS SUMMARY | 2024-10-09 09:52 | XMS_ITS | Encounter Summary ---
Author Organization [facility] Address [address] [facility] [place] [address] Care Team Providers Care Counter Clerk Farm Equipment [employer] Name Role Phone Donna Romero Md, MD Primary Care Provider Unavailable Mannie Morillo MD Unavailable Josep Givens PA-C Unavailable [phone] Encounter Details Date Type Department Care Team Description 01/07/2022 Release of Information Medical Records [address] [place] [id number] Abstract, Provider Social History Tobacco Use Types [...] suspected to have Coronavirus/COVID-19? No / Unsure 12/15/2021 8:47 AM EST documented as of this encounter Plan of Treatment Not on file documented as of this encounter Visit Diagnoses Not on filedocumented in this encounter Care Teams Counter Clerk [employer] Equipment [employer] Relationship Specialty Start Date End Date Donna Romero MD, MD PCP - General Internal Medicine 07/11/20 Mannie Morillo MD Specialist Lung Cancer Precast Worker 06/03/21 Chon, Christopher, PA-[address] [phone] Specialist Thoracic Surgery 07/08/22 documented as of this encounter
--- OUTSIDE RECORDS SUMMARY | 2024-10-09 09:52 | XMS_ITS | Encounter Summary ---
Author Organization [facility] Address [address] [place] [address] Care Team Providers Care Procurement Forester Name Role Phone Donna Romero Md, MD Primary Care Provider Unavailable Mannie Morillo MD Unavailable Josep Givens PA-C Unavailable [phone] Encounter Details Date Type Department Care Team Description 12/10/2021 Orders Only [facility] Thoracic Surgery [place] 299 [facility] [address] [place] [phone] Josep Givens PA-C 299 [facility] [address] [place] [phone] History of lung cancer; Cyst of mediastinum [...] system documented in this encounter Care Teams Procurement Forester Relationship Specialty Start Date End Date Donna Romero MD, MD PCP - General Internal Medicine 07/11/20 Mannie Morillo MD Specialist Lung Cancer Fitter'S Assistant 06/03/21 Josep Givens PA-C [address] [phone] Specialist Thoracic Surgery 07/08/22 documented as of this encounter
--- OUTSIDE RECORDS SUMMARY | 2024-10-09 09:52 | XMS_ITS | Encounter Summary ---
Author Organization [facility] Address [address] [facility] [place] [address] Care Team Providers Care Adobe Block Maker Name Role Phone Donna Romero Md, MD Primary Care Provider Unavailable Mannie Morillo MD Unavailable Josep Givens PA-C Unavailable [phone] Encounter Details Date Type Department Care Team Description 08/27/2022 Orders Only Gastroenterology - [address] [place] [address] David Burton PA-C Gastroesophageal reflux disease, unspecified whether esophagitis present; [...] type documented in this encounter Care Teams Adobe Block Maker Relationship Specialty Start Date End Date Donna Romero MD, MD PCP - General Internal Medicine 07/11/20 Mannie Morillo MD Specialist Lung Cancer Integration Technician 06/03/21 Josep Givens PA-C [address] [place] [phone] Specialist Thoracic Surgery 07/08/22 documented as of this encounter
--- OUTSIDE RECORDS SUMMARY | 2024-10-09 09:52 | XMS_ITS | Encounter Summary ---
Author Organization [facility] Address [address] [facility] [place] [address] Care Team Providers Care Teacher Education Instructor Name Role Phone Donna Romero Md, MD Primary Care Provider Unavailable Mannie Morillo MD Unavailable Josep Givens PA-C Unavailable [phone] Reason for Visit * Reason Comments E-prescribe Rx Request Encounter Details Date Type Department Care Team Description 09/26/2023 Refill Pulmonology - [place] 175 [facility] [address] [place] [phone] Ana Flaherty MD 175 [place] [phone] E-prescribe Rx Request Social History Tobacco Use [...] (HCC) documented in this encounter Care Teams Teacher Education Instructor Relationship Specialty Start Date End Date Donna Romero MD, MD PCP - General Internal Medicine 07/11/20 Mannie Morillo MD Specialist Lung Cancer M48/M60 Tank Driver 06/03/21 Josep Givens PA-C [address] [place] [phone] Specialist Thoracic Surgery 07/08/22 documented as of this encounter
--- OUTSIDE RECORDS SUMMARY | 2024-10-09 09:52 | XMS_ITS | Encounter Summary ---
Author Organization [facility] Address [address] [facility] [place] [address] Care Team Providers Care Auto Dealer Name Role Phone Jorge Barth Primary Care Provider UnavailDonna Orlando Md, MD Primary Care Provider Unavailable Donna Romero Md, MD Primary Care Provider Unavailable Mannie Morillo MD Unavailable Josep Givens PA-C Unavailable [phone] Encounter Details Date Type Department Care Team Description 05/05/2017 Release of Information Medical Records [address] [place] [id number] Abstract, Provider Social History Tobacco Use Types [...] on filedocumented in this encounter Care Teams Auto Dealer Relationship Specialty Start Date End Date Jorge Barth PCP - General 03/19/08 10/29/18 Donna Romero MD, MD PCP - General Internal Medicine 10/30/18 07/10/20 Donna Romero MD, MD PCP - General Internal Medicine 07/11/20 Mannie Morillo MD Specialist Lung Cancer Cleaning Validation Consultant 06/03/21 Josep Givens PA-C [address] [place] [phone] Specialist Thoracic Surgery 07/08/22 documented as of this encounter
--- OUTSIDE RECORDS SUMMARY | 2024-10-09 09:52 | XMS_ITS | Encounter Summary ---
Author Organization [facility] Address [address] [place] [address] Care Team Providers Care Digital Proofing And Platemaker Name Role Phone Donna Romero Md, MD Primary Care Provider Unavailable Mannie Morillo MD Unavailable Josep Givens PA-C Unavailable [phone] Encounter Details Date Type Department Care Team Description 06/09/2021 Abstract [facility] Thoracic Surgery [place] 299 [facility] [address] [place] [phone] Josep Givens PA-C 299 [facility] [address] [place] [phone] Social History Tobacco Use Types Packs/Day Years [...] on filedocumented in this encounter Care Teams Digital Proofing And Platemaker Relationship Specialty Start Date End Date Donna Romero MD, MD PCP - General Internal Medicine 07/11/20 Mannie Morillo MD Specialist Lung Cancer Gear Machinist 06/03/21 Josep Givens PA-C [address] [place] [phone] Specialist Thoracic Surgery 07/08/22 documented as of this encounter
--- OUTSIDE RECORDS SUMMARY | 2024-10-09 09:52 | XMS_ITS | Encounter Summary ---
Author Organization [facility] Address [address] [place] [address] Care Team Providers Care Preflight Inspector Name Role Phone Donna Romero Md, MD Primary Care Provider Unavailable Mannie Morillo MD Unavailable Josep Givens PA-C Unavailable [phone] Encounter Details Date Type Department Care Team Description 05/22/2021 Orders Only [facility] Thoracic Surgery [place] 299 [facility] [address] [place] [phone] Josep Givens PA-C 299 [facility] [address] [place] [phone] Mediastinal mass Social History Tobacco Use Types [...] CONTRAST (05/20/2021) Josep Givens PA-C CT SCANS [facility] RADIOLOGY documented in this encounter Visit Diagnoses Diagnosis Mediastinal mass Swelling, mass, or lump in chest documented in this encounter Care Teams Preflight Inspector Relationship Specialty Start Date End Date Donna Romero MD, MD PCP - General Internal Medicine 07/11/20 Mannie Morillo MD Specialist Lung Cancer Agricultural Produce Sorter 06/03/21 Josep Givens PA-C [address] [place] [phone] Specialist Thoracic Surgery 07/08/22 documented as of this encounter
--- OUTSIDE RECORDS SUMMARY | 2024-10-09 09:53 | XMS_ITS | Encounter Summary ---
Author Organization [facility] Address [address] [facility] [place] [address] Care Team Providers Care Hostage Negotiator Name Role Phone Donna Romero Md, MD Primary Care Provider Unavailable Donna Romero Md, MD Primary Care Provider Unavailable Mannie Morillo MD Unavailable Josep Givens PA-C Unavailable [phone] Reason for Visit * Reason Onset Date Comments Faxed Order 02/19/2020 Encounter Details Date Type Department Care Team Description 02/19/2020 Telephone Internal Medicine - [address], [address] [place] [address] Donna Romero MD, MD Faxed Order Social [...] on filedocumented in this encounter Care Teams Hostage Negotiator Relationship Specialty Start Date End Date Donna Romero MD, MD PCP - General Internal Medicine 10/30/18 07/10/20 Donna Romero MD, PCP - General Internal Medicine 07/11/20 Mannie Morillo MD Specialist Lung Cancer Clinical Trial Coordinator 06/03/21 Josep Givens PA-C [address] [place] [phone] Specialist Thoracic Surgery 07/08/22 documented as of this encounter
--- OUTSIDE RECORDS SUMMARY | 2024-10-09 09:53 | XMS_ITS | Patient Health Record ---
Author Organization [facility] Address [address] [place] [address] Care Team Providers Care Care Coordination Manager Name Role Phone Lary (RETIRED) Jorge EDMOND Primary Care Provide r Unavailable Steve Schmidt Jr Unavailable Reason For Referral No Information Medications Medication [...] Problem Screening for malignant neoplasm of colon ([id number]) Special screening for malignant neoplasms, colon (V76.51) Active confirmed Plan Of Treatment No Information Insurance Providers Payer Name Payer Address Payer Phone Subscriber Number Group Number Insured Name Patient Relationship to Insured Coverage Start Date Coverage End Date [facility] [address] [place] [phone] [id number] CARLOTA ZELAYA Self - patient is the insured Medical (General) History Medical History History ICD Code depression osteoporosis muscle spasms COPD elevated cholesterol back pain degenerative joint disease involving the back Surgical History Surgery Date(Month/Year) cervical disc fusion
--- OUTSIDE RECORDS SUMMARY | 2024-10-09 09:53 | XMS_ITS | Encounter Summary ---
Author Organization [facility] Address [address] [facility] [place] [address] Care Team Providers Care Machine Cleaner Name Role Phone Donna Romero Md, MD Primary Care Provider Unavailable Donna Romero Md, MD Primary Care Provider Unavailable Mannie Morillo MD Unavailable Josep Givens PA-C Unavailable [phone] Encounter Details Date Type Department Care Team Description 04/21/2020 Manager Forms Report Medical Records 444 [place] [address] [place] PA-C [address] [phone] Social History Tobacco Use Types [...] on filedocumented in this encounter Care Teams Machine Cleaner Relationship Specialty Start Date End Date Donna Romero MD, MD PCP - General Internal Medicine 10/30/18 07/10/20 Donna Romero MD, PCP - General Internal Medicine 07/11/20 Mannie Morillo MD Specialist Lung Cancer Sanitation Laborer 06/03/21 Josep Givens PA-C [address] [place] [phone] Specialist Thoracic Surgery 07/08/22 documented as of this encounter
--- OUTSIDE RECORDS SUMMARY | 2024-10-09 09:53 | XMS_ITS | Encounter Summary ---
Author Organization [facility] Address [address] [facility] [place] [address] Care Team Providers Care [facility] Network Pricing Consultant Name Role Phone Donna Romero Md, MD Primary Care Provider Unavailable Mannie Morillo MD Unavailable Josep Givens PA-C Unavailable [phone] Reason for Visit * Reason Onset Date Comments Error 07/11/2020 Encounter Details Date Type Department Care Team Description 07/11/2020 Telephone Adult Medicine [address] [address] Nargis Villagomez MD Error Social History Tobacco [...] on filedocumented in this encounter Care Teams Healthcare Network Pricing Consultant Relationship Specialty Start Date End Date Donna Romero MD, MD PCP - General Internal Medicine 07/11/20 Mannie Morillo MD Specialist Lung Cancer Security Risk Analyst 06/03/21 Josep Givens PA-C [address] [place] [phone] Specialist Thoracic Surgery 07/08/22 documented as of this encounter
--- OUTSIDE RECORDS SUMMARY | 2024-10-09 09:53 | XMS_ITS | Encounter Summary ---
Author Organization [facility] Address [address] [facility] [place] [address] Care Team Providers Care Waste Duster Name Role Phone Jorge Barth Primary Care Provider UnavailDonna Orlando Md, MD Primary Care Provider Unavailable Donna Romero Md, MD Primary Care Provider Unavailable Mannie Morillo MD Unavailable Josep Givens PA-C Unavailable [phone] Reason for Visit * Reason Onset Date Comments APPOINTMENT 08/18/2017 Encounter Details Date Type Department Care Team Description 08/18/2017 Telephone Pulmonology - [place] 175 [facility] [address] [place] [address] Ana Flaherty MD 175 [place] [phone] APPOINTMENT Social History Tobacco Use [...] on filedocumented in this encounter Care Teams Waste Duster Relationship Specialty Start Date End Date Jorge Barth PCP - General 03/19/08 10/29/18 Donna Romero MD, MD PCP - General Internal Medicine 10/30/18 07/10/20 Donna Romero MD, MD PCP - General Internal Medicine 07/11/20 Mannie Morillo MD Specialist Lung Cancer Wheel Blocker 06/03/21 Josep Givens PA-C [address] [place] [phone] Specialist Thoracic Surgery 07/08/22 documented as of this encounter
== END 2024-10-09 09:30 | disposition home or self-care (01) ==
LOC: HO.ENCR 09:03
PROVIDERS: PCP Internal Medicine; Visit Provider Internal Medicine Endocrinology, Diabetes & Metabolism
DX: M81.0 Age-related osteoporosis without current pathological fracture (principal)

== ENCOUNTER → 2024-10-09 09:02 | Outpatient (BNVA) | payer MEDICARE, MEDICAID, SELFPAY | PROVIDERS: PCP Internal Medicine; Visit Provider Internal Medicine Endocrinology, Diabetes & Metabolism | DX: M81.0 Age-related osteoporosis without current pathological fracture (principal) | CPT/HCPCS: 96372; J3111 ==

== ENCOUNTER 2024-11-06 09:08 | Outpatient (AMB) | payer MEDICARE, MEDICAID, SELFPAY ==
--- OUTSIDE RECORDS SUMMARY | 2024-11-01 13:00 | XMS_ITS | Encounter Summary ---
Author Organization [employer] Address [address] [facility] 7t [place] [address] Care Team Providers Care Director Fixed Income Name Role Phone Unavailable Primary Care Provider Unavailabl e Reason for Visit * Reason Comments Dental Pain Lower right side anne n Encounter Details Date Type Department Care Team (Late st Contact Info) Description 11/01/2024 1:00 PM EDT Office Visit [facility] ADULT DENTAL [address] [place] [address] Ruddy Claudio DDS [address] [place], [place] [phone] Social History Tobacco Use Types Packs/Day Years Used Date Smoking Tobacco: Never Assessed Comments Unknown Sex and Gender Information Value Date Recorded Sex Assigned at Female 11/01/2024 8:05 AM EDT Legal Sex Female 8:02 AM EDT Gender Identity Female 11/01/2024 8:05 AM EDT Sexual Orientation Choose not to disclose 2024 8:05 AM EDT documented as of this encounter Progress Notes * Ruddy Claudio DDS - 11/01/2024 1:00 PM EDT Dental procedures in this visit D0140 - LIMITED ORAL EVALUATION - PROBLEM FOCUSED (Completed) Service provider: Ruddy Claudio DDS Billing provider: Yadiel Mcneil DDS [id number] - CASE PRESENTATION, DETAILED AND EXTENSIVE TREATMENT PLANNING (Completed) Service provider: Ruddy Claudio DDS Billing provider: Yadiel Mcneil DDS D0330 - PANORAMIC RADIOGRAPHIC IMAGE (Completed) Service provider: Ruddy Claudio DDS Billing provider: Yadiel Mcneil DDS [id number] - INTRAORAL - PERIAPICAL FIRST RADIOGRAPHIC IMAGE 27,28,29 (Completed) Service provider: Ruddy Claudio DDS Billing provider: Yadiel Mcneil DDS Patient ID: Jamila Ramírez is a 69 y.o. female. Time Out: Date: 11/01/2024 Location: [facility] Tooth: #27, #28, and #29 Procedure: Exam and Emergency Verified the above with patient, dam tender assistant, and provider. Confirmed via patient's chart, intraorally and by radiographs. Leaf Sucker Operator: not applicable 69 y.o. y/o female presents for limited exam with Dr. Ruddy Claudio DDS Medical history: Reviewed in EHR Vitals: There were no vitals taken for this visit. Allergies: Reviewed in EHR Medications: Reviewed in EHR Radiographs taken: Yes CHIEF COMPLAINT: My teeth really hurt down here and I am swollen, it was worse before but now it has gone down since I have been taking Ibuprofen Discussion: Patient presented at consult referring to pain and swelling on the area of teeth 27,28,29. Upon clinical observation a swelling is noted on the right mid mandible region in proximity to the mental foramen with no intraoral fistula presentation. Radiographic findings present gross decay on the teeth in question with PARL on 28-29, generalized advanced vertical and horizontal bone loss,multiple root fragments and generalized Grade II-III mobility on remaining teeth with with advancedcarious lesions. All teeth are deemed hopeless. Full EXT has been recommended followed by the fabrication of full upper and lower complete dentures. Patient did mention that while eating one of her teeth just popped out; it was advised that due to the advanced grade of periodontal disease tooth avulsion is expected and that the rest will follow soon after, as the disease at this point has caused irreversible damage. Patient understood, accepted treatment and has been placed on antibiotics and antiinflammatory drugs to reduce infection and swelling. Additional note: Patient is currently taking Evenity (romosozumab) an sclerotin inhibitor to treat her arthritis and osteoporosis. Patient has not had her injection this month yet. Patient contacted her Doctor's office during the visit who verbally mentioned that she should be fine to have her teeth pulled as this medication does not present the same effects as a bisphosphonate, however, medical clearance was requested and scanned prior to proceeding with surgical intervention. Awaiting clearance to schedule patient. Rx: Amoxicillin 500mg, Ibuprofen 600mg NV: Full Mouth Extraction. Provider: Dr. Ruddy Claudio DDS Dental Incident Handler: Angela Brown Attending: Dr. Mcneil * Yadiel Mcneil DDS - 11/01/2024 1:00 PM EDT Reviewed and signed. documented in this encounter Plan of Treatment Scheduled Orders Name Type Priority Associated Diagnoses Orde r Schedule 1 1 EXTRACTION, ERUPTED TOOTH OR EXPOSED ROOT (ELEVATION/FORCEPS REMOVAL) Dental Routine 1 Occurrences [facility] 11/01/2024 3 3 EXTRACTION, ERUPTED TOOTH OR EXPOSED ROOT (ELEVATION/FORCEPS REMOVAL) Dental Routine 1 Occurrences [facility] 11/01/2024 8 8 EXTRACTION, ERUPTED TOOTH OR EXPOSED ROOT (ELEVATION/FORCEPS REMOVAL) Dental Routine 1 Occurrences [facility] 11/01/2024 12 12 EXTRACTION, ERUPTED TOOTH OR EXPOSED ROOT (ELEVATION/FORCEPS REMOVAL) Dental Routine 1 Occurrences [facility] 11/01/2024 7 7 EXTRACTION, ERUPTED TOOTH OR EXPOSED ROOT (ELEVATION/FORCEPS REMOVAL) Dental Routine 1 Occurrences [facility] 11/01/2024 6 6 EXTRACTION, ERUPTED TOOTH OR EXPOSED ROOT (ELEVATION/FORCEPS REMOVAL) Dental Routine 1 Occurrences [facility] 11/01/2024 5 5 EXTRACTION, ERUPTED TOOTH OR EXPOSED ROOT (ELEVATION/FORCEPS REMOVAL) Dental Routine 1 Occurrences [facility] 11/01/2024 4 4 EXTRACTION, ERUPTED TOOTH OR EXPOSED ROOT (ELEVATION/FORCEPS REMOVAL) Dental Routine 1 Occurrences [facility] 11/01/2024 15 15 EXTRACTION, ERUPTED TOOTH OR EXPOSED ROOT (ELEVATION/FORCEPS REMOVAL) Dental Routine [address] [facility] 11/01/2024 21 21 EXTRACTION, ERUPTED TOOTH OR EXPOSED ROOT (ELEVATION/FORCEPS REMOVAL) Dental Routine [address] [facility] 11/01/2024 23 23 EXTRACTION, ERUPTED TOOTH OR EXPOSED ROOT (ELEVATION/FORCEPS REMOVAL) Dental Routine [address] [facility] 11/01/2024 24 24 EXTRACTION, ERUPTED TOOTH OR EXPOSED ROOT (ELEVATION/FORCEPS REMOVAL) Dental Routine [address] [facility] 11/01/2024 25 25 EXTRACTION, ERUPTED TOOTH OR EXPOSED ROOT (ELEVATION/FORCEPS REMOVAL) Dental Routine [address] [facility] 11/01/2024 26 26 EXTRACTION, ERUPTED TOOTH OR EXPOSED ROOT (ELEVATION/FORCEPS REMOVAL) Dental Routine [address] [facility] 11/01/2024 27 27 EXTRACTION, ERUPTED TOOTH OR EXPOSED ROOT (ELEVATION/FORCEPS REMOVAL) Dental Routine [address] [facility] 11/01/2024 28 28 EXTRACTION, ERUPTED TOOTH OR EXPOSED ROOT (ELEVATION/FORCEPS REMOVAL) Dental Routine [address] [facility] 11/01/2024 29 29 EXTRACTION, ERUPTED TOOTH OR EXPOSED ROOT (ELEVATION/FORCEPS REMOVAL) Dental Routine [address] [facility] 11/01/2024 Max Max COMPLETE DENTURE - MAXILLARY Dental Routine [address] [facility] 11/01/2024 Abdullahi Abdullahi COMPLETE DENTURE - MANDIBULAR Dental Routine 1 Occurrenc es starting 11/01/2024 documented as of this encounter Procedures Procedure Name Priority Date/Time Associated Diagnosis Comments PANORAMIC RADIOGRAPHIC IMAGE Routine 11/01/2024 1:00 PM EDT LIMITED ORAL EVALUATION - PROBLEM FOCUSED Routine 11/01/2024 1:00 PM EDT 27,28,29 INTRAORAL - PERIAPICAL FIRST RADIOGRAPHIC IMAGE Routine 11/01/2024 1:00 PM EDT CASE PRESENTATION, DETAILED AND EXTENSIVE TREATMENT PLANNING Routine 11/01/2024 1:00 PM EDT 2 EXTRACTION Routine 11/01/2024 12:00 AM EDT 9 EXTRACTION Routine 11/01/2024 12:00 AM EDT 10 EXTRACTION Routine 11/01/2024 12:00 AM EDT 11 EXTRACTION Routine 11/01/2024 12:00 AM EDT 13 EXTRACTION Routine 11/01/2024 12:00 AM EDT 14 EXTRACTION Routine 11/01/2024 12:00 AM EDT 16 EXTRACTION Routine 11/01/2024 12:00 AM EDT 17 EXTRACTION Routine 11/01/2024 12:00 AM EDT 18 EXTRACTION Routine 11/01/2024 12:00 AM EDT 19 EXTRACTION Routine 11/01/2024 12:00 AM EDT 20 EXTRACTION Routine 11/01/2024 12:00 AM EDT 22 EXTRACTION Routine 11/01/2024 12:00 AM EDT 30 EXTRACTION Routine 11/01/2024 12:00 AM EDT 31 EXTRACTION Routine 11/01/2024 12:00 AM EDT 32 EXTRACTION Routine 11/01/2024 12:00 AM EDT documented in this encounter Visit Diagnoses Not on filedocumented in this encounter
--- NOTE | 2024-11-06 09:46 | AM.OFFVISNUR ---
Intake Visit Reasons: Evenity #9 Allergies No Known Allergies Allergy (Verified 04/23/24 23:22) Office Meds romosozumab-aqqg 210 mg/2.34 mL(105 mg/1.17 mL x2)subcutaneous syringe Performing Provider: Alexi Givens MD Performing Location: [facility] Administered by: Jojo Hunt RN on 11/06/24 09:46 Dose Route Admin Location Dispensed Lot Number Expiration Date NDC Game Artist 210 mg subcut bilateral upper arms 2.34 mL [id number] 01/06/27 44700-889-04 [facility] Total Dispensed Waste 2.34 mL 0 % Comments: No adverse reactions reported from previous injection. Pt tolerated injection well. Pt scheduled in 4 weeks for next appt. No further questions at this time. Assessment & Plan Assessment & Plan Orders: Orders AMB Romosozumab Injection Patient Supplied Today M81.0 - Age-related osteoporosis without current pathological fracture Coding
--- OUTSIDE RECORDS SUMMARY | 2024-11-06 09:53 | XMS_ITS | Encounter Summary ---
Author Organization [facility] Address [address] [facility] [place] [address] Care Team Providers Care Trimming Operator Name Role Phone Donna Romero Md, MD Primary Care Provider Unavailable Mannie Morillo MD Unavailable Josep Givens PA-C Unavailable [phone] Reason for Visit * Reason Comments E-prescribe Rx Request Encounter Details Date Type Department Care Team Description 06/20/2021 Refill Pulmonology - [place] [address] [facility] [address] [place] [phone] Ana Flaherty MD [address] [place] [address] E-prescribe Rx Request Social History [...] / Plan[place] / Product Type: MEDICAID [id number] documented in this encounter Plan of Treatment Not on file documented as of this encounter Visit Diagnoses Not on filedocumented in this encounter Care Teams Trimming Operator Relationship Specialty Start Date End Date Donna Romero MD, MD PCP - General Internal Medicine 07/11/20 Mannie Morillo MD Specialist Lung Cancer Advice Nurse 06/03/21 Josep Givens PA-C [address] [place] [phone] Specialist Thoracic Surgery 07/08/22 documented as of this encounter
--- OUTSIDE RECORDS SUMMARY | 2024-11-06 09:53 | XMS_ITS | Encounter Summary ---
Author Organization [facility] Address [address] [facility] [place] [address] Care Team Providers Care House Worker Name Role Phone Donna Romero Md, MD Primary Care Provider Unavailable Mannie Morillo MD Unavailable Josep Givens PA-C Unavailable [phone] Encounter Details Date Type Department Care Team Description 06/16/2022 Telephone Gastroenterology - [address] [place] [address] David Burton PA-C Social History [...] AM EDT Booked Barium Swallow at [address] [facility] for patient on August 27 at 8:30am w/ arrival at 8:10am. Called the patient to notify of appointment details, including nothing to eat/drink after midnight. I also mailed an appointment letter. Order has been faxed to [phone]. documented in this encounter Plan of Treatment Not on file documented as of this encounter Visit Diagnoses Not on filedocumented in this encounter Care Teams House Worker Relationship Specialty Start Date End Date Donna Romero MD, MD PCP - General Internal Medicine 07/11/20 Mannie Morillo MD Specialist Lung Cancer Certified Hearing Instrument Dispenser 06/03/21 Josep Givens PA-C [address] [place] [phone] Specialist Thoracic Surgery 07/08/22 documented as of this encounter
--- OUTSIDE RECORDS SUMMARY | 2024-11-06 09:53 | XMS_ITS | Clinical Summary ---
Author Organization [employer] Address [address] [facility] [address] 7[address] [place] [address] Care Team Providers Care Gasoline Pump Installer Name Role Phone Unavailable Primary Care Provider Unavailabl e Allergies No known active allergies Medications albuterol (2.5 MG/3ML) 0.083% nebulizer solution Inhale 2.5 mg every 4 (four) hours if needed. 10/17/2020 Active atorvastatin (Lipitor) 10 MG tablet Take 10 mg by mouth at bedtime. 04/05/2024 Active midodrine (Proamatine) 5 MG tablet Take 5 mg by mouth before breakfast, before lunch, and before evening meal. 06/25/2024 Active nabumetone (Relafen) 500 MG tablet TAKE 1 TABLET BY MOUTH TWICE DAILY NEEDED FOR JOINT PAIN Active omeprazole (PriLOSEC) [address] capsule Take 20 mg by mouth Once per day. Active cholecalciferol (Vitamin D-3) 125 MCG (5000 UT) tablet Take 5,000 Units by mouth Once per day. Active Trelegy Ellipta 200-62.5-25 MCG/ACT aerosol powder Inhale 200 mcg Once per day. 04/12/2024 Active atorvastatin (Lipitor) 20 MG tablet Take 20 mg by mouth Once per day. Active amoxicillin (Amoxil) 500 MG capsule Take 1 capsule (500 mg) by mouth every 8 (eight) hours for 7 days. 21 capsule 11/01/2024 Active ibuprofen 600 MG tablet Take 1 tablet (600 mg) by mouth every 6 (six) hours if needed for mild pain for up to 20 doses. 20 tablet 11/01/2024 Active ibuprofen 600 MG tablet Take 1 tablet (600 mg) by mouth every 6 (six) hours if needed for mild pain for up to 20 doses. 20 tablet 11/01/2024 Active amoxicillin (Amoxil) 500 MG capsule Take 1 capsule (500 mg) by mouth every 8 (eight) hours for 7 days. 21 capsule 11/01/2024 Active Active Problems No known active problems Encounters Date Type Department Care Team Description 11/01/2024 1:00 PM EDT Office Visit [facility] ADULT DENTAL [address] [place] [address] Ruddy Claudio DDS from Last 3 Months Social History Tobacco Use Types Packs/Day Years Used Date Smoking Tobacco: Never Assessed Comments Unknown Sex and Gender Information Value Date Recorded Sex Assigned at Female 11/01/2024 8:05 AM EDT Legal Sex Female 8:02 AM EDT Gender Identity Female 11/01/2024 8:05 AM EDT Sexual Orientation Choose not to disclose 2024 8:05 AM EDT Plan of Treatment Health Maintenance Due Date Last Done Comments CT Colonography 1954 Colonoscopy 1954 Colorectal Cancer Screening 1954 Dental Oral Exam 1954 Dental Prophylaxis 1954 Dental X-Ray: Bitewings 1954 Depression Screening 1954 FIT DNA/Cologuard 1954 FIT 1954 FOBT 1954 SDOH Screening 1954 Sigmoidoscopy 1954 Alcohol/Substance Use Screening 1966 Tobacco Screening 1966 Hepatitis C Screening 1972 DTaP/Tdap/Td Vaccines (1 - Tdap) 1973 Mammogram 1994 RSV Patients and Patients Aged 60 years or older (1 - Risk 60-74 years 1-dose series) 2014 Zoster Vaccines (3 of 3) 07/09/2018 05/14/2018, 09/07 COVID-19 Vaccine ( season) 2024 05/15/2021, 11/15/2020, 05/17/2020, Additional history exists Influenza Vaccine (#1) 2024 , 11/17/2016, 12/10/2015, Additional history exists Dental X-Ray: Full Mouth 11/03/2027 11/01/2024 Pneumococcal Vaccine: 50+ Years Completed 09/09/2022, 03/17/2022, [...] patient's age to complete this topic Meningococcal Vaccine Aged Out No roxy andrea eligible based on patient's age to complete this topic RSV under 20 months Aged Out No longe r eligible based on patient's age to complete this topic Rotavirus Vaccines Aged Out No longer eligible based on patient's age to complete this topic Procedures Procedure Name Priority Date/Time Associated Diagnosis Comments LIMITED ORAL EVALUATION - PROBLEM FOCUSED Routine 11/01/2024 1:00 PM EDT 27,28,29 INTRAORAL - PERIAPICAL FIRST RADIOGRAPHIC IMAGE Routine 11/01/2024 1:00 PM EDT PANORAMIC RADIOGRAPHIC IMAGE Routine 11/01/2024 1:00 PM [...] 32 EXTRACTION Routine 11/01/2024 12:00 AM EDT from Last 3 Months Insurance [facility] MEDICAID STAND ADULT [place] [id number]
--- OUTSIDE RECORDS SUMMARY | 2024-11-06 09:53 | XMS_ITS | Encounter Summary ---
Author Organization [facility] Address [address] [facility] [place] [address] Care Team Providers Care Fire Code Inspector Name Role Phone Donna Romero Md, MD Primary Care Provider Unavailable Mannie Morillo MD Unavailable Josep Givens PA-C Unavailable [phone] Encounter Details Date Type Department Care Team Description 03/17/2022 Release of Information Medical Records [address] [place] [id number] Abstract, Provider Social History Tobacco Use Types [...] on filedocumented in this encounter Care Teams Fire Code Inspector Relationship Specialty Start Date End Date Donna Romero MD, MD PCP - General Internal Medicine 07/11/20 Mannie Morillo MD Specialist Lung Cancer Electronic Warfare Operator 06/03/21 Josep Givens PA-C [address] [phone] Specialist Thoracic Surgery 07/08/22 documented as of this encounter
--- OUTSIDE RECORDS SUMMARY | 2024-11-06 09:53 | XMS_ITS | Encounter Summary ---
Author Organization [facility] Address [address] [facility] [place] [address] Care Team Providers Care Lead Consultant Name Role Phone Donna Romero Md, MD Primary Care Provider Unavailable Mannie Morillo MD Unavailable Josep Givens PA-C Unavailable Reason for Visit * Reason Onset Date Comments DME Request 08/04/2023 Encounter Details Date Type Department Care Team Description 08/04/2023 Telephone Pulmonology - [place] [address] [facility] [address] [place] [address] Ana Flaherty MD [address] [place] [address] DME Request Social History Tobacco Use Types Packs/Day [...] encounter Miscellaneous Notes * Telephone Encounter - Aleyda Sarabia CMA - 08/04/2023 10:43 AM EDT Called [facility] they dont know why patient received that letter. They have everything on their system including last office notes * Telephone Encounter - Pita Palacios - 08/04/2023 9:26 AM EDT Patient calling stating she has received a ltter from [facility] stating she might loose her O2 since they have not recived any most recent notes form Provider's office Please advice and send notes documented in this encounter Plan of Treatment Not on file documented as of this encounter Visit Diagnoses Not on filedocumented in this encounter Care Teams Lead Consultant Relationship Specialty Start Date End Date Donna Romero MD, MD PCP - General Internal Medicine 07/11/20 Mannie Morillo MD Specialist Lung Cancer Senior Administrative Assistant 06/03/21 Josep Givens PA-C [address] [place] [phone] Specialist Thoracic Surgery 07/08/22 documented as of this encounter
--- OUTSIDE RECORDS SUMMARY | 2024-11-06 09:53 | XMS_ITS | Encounter Summary ---
Author Organization [facility] Address [address] [facility] [place] [address] Care Team Providers Care Seismology Technical Officer Name Role Phone Jorge Barth Primary Care Provider UnavailDonna Orlando Md, MD Primary Care Provider Unavailable Donna Romero Md, MD Primary Care Provider Unavailable Mannie Morillo MD Unavailable Josep Givens PA-C Unavailable [phone] Encounter Details Date Type Department Care Team Description 05/05/2017 Release of Information Medical Records [address] [place] [id number] Abstract, Provider Social History Tobacco Use Types [...] on filedocumented in this encounter Care Teams Seismology Technical Officer Relationship Specialty Start Date End Date Jorge Barth PCP - General 03/19/08 10/29/18 Donna Romero MD, MD PCP - General Internal Medicine 10/30/18 07/10/20 Donna Romero MD, MD PCP - General Internal Medicine 07/11/20 Mannie Morillo MD Specialist Lung Cancer Door Closer Mechanic 06/03/21 Josep Givens PA-C [address] [place] [phone] Specialist Thoracic Surgery 07/08/22 documented as of this encounter
--- OUTSIDE RECORDS SUMMARY | 2024-11-06 09:53 | XMS_ITS | Clinical Summary ---
Author Organization [facility] Address [address] [place] [phone] Phone Care Team Providers Care Web Operations Administrator Name Role Phone Donna Romero MD Primary [...] will continue to get refills through her operating room surgical technologist office. She is advised to call the [...] Type Department Care Team Description 08/23/2024 Telephone Pulmonology - [place] [address] [facility] [address] [place] [phone] Ana Flaherty MD 08/22/2024 7:00 AM EDT Ancillary Procedure [facility] [address] [place] [phone] Hypotension 08/16/2024 Telephone Pulmonology - [place] [address] [facility] [address] [place] [phone] Ana Flaherty MD from Last 3 Months Surgical History Surgery Date Site/Laterality Comments OTHER SURGICAL HISTORY PROCEDURE: GA RMVL LUNG OTH/THN PNUMEC RESXN-PLCTJ EMPHY LUNG OTHER SURGICAL HISTORY 06/03/2020 Right PROCEDURE: GA RESCJ&BRONCHOPLASTY PFRMD TM LOBEC/SGMECTOMY; COMMENT: RUL Wedge w/ completetion RUL lobectomy Medical History Medical History Date Comments Nocturnal hypoxia 04/24/2017 DX:Nocturnal h ypoxia Depression 04/24/2017 DX:Depression COPD (chronic obstructive pu lmonary disease) (CMS/HCC V24, CMS/HCC V28) DX:COPD (chronic o bstructive [...] for your loved ones. For example, child welfare manager or elderly care for an older adult? [...] Date Recorded What is your living situation? Unrecognized valu e 04/05/2024 Interpersonal Safety Answer Date Record ed Physical Abuse Unrecognized value 04/05/2024 Verbal Abuse Unrecognized value 04/05/2024 Comments Unknown Sex and Gender Information [...] Description 12/18/2024 8:40 AM EST Office Visit [facility] [address] [place] [phone] Sandra Malone NP [address] [place] [address] [address] [place] [phone] 01/22/2025 9:30 AM EST Office Visit Pulmonology - [place] [address] [facility] [address] [place] [phone] Ana Flaherty MD [address] [facility] [address] [place] [address] Health Maintenance Due Date Last Done Comments Breast Cancer Screening 1954 Colorectal Cancer Screening: Colonoscopy 1954 DTaP,Tdap,and Td Vaccines (1 - Tdap) 1973 RSV Immunization Adult Patients (1 - Risk 60-74 years 1-dose series) 2014 Zoster Vaccines (2 of 2) 07/09/2018 05/14/2018, 09/07 Cholesterol Screening (Lipid Panel) 01/05/2022 Hepatitis C Screening 01/05/2022 Medicare Annual Wellness Visit 01/05/2022 Osteoporosis Screening (Bone Density Screening) 01/05/2022 Depression Screening 02/08/2024 COVID-19 Vaccine ( season) 2024 05/15/2021, 11/15/2020, [...] COMPLETE Routine 08/22/2024 7:49 AM EDT Hypotension from Last 3 Months Results * (ABNORMAL) TRANSTHORACIC ECHOCARDIOGRAM (TTE) COMPLETE (08/22/2024 7:49 AM EDT) Left [facility] [place] 4.3 cm CV PACS Left [facility] [place] 3.9 cm CV PACS [place] Area Sys [...] Overall the study quality was technically difficult. us Brock Barr MD CV ECHO PROCEDURES Final Resul t from Last 3 Months Insurance MEDICAID - [...] currently active code status orders. Care Teams Web Operations Administrator Relationship Specialty Start Date End Date Donna Romero MD [address] [place] [address] PCP - General Internal Medicine 10/30/18
--- OUTSIDE RECORDS SUMMARY | 2024-11-06 09:53 | XMS_ITS | Encounter Summary ---
Author Organization [facility] Address [address] [place] [address] Care Team Providers Care Turn Out Name Role Phone Donna Romero Md, MD Primary Care Provider Unavailable Mannie Morillo MD Unavailable Josep Givens PA-C Unavailable [phone] Encounter Details Date Type Department Care Team Description 06/03/2021 Abstract [facility] Thoracic Surgery [place] [address] [phone] Josep Givens PA-C [address] [phone] Social History Tobacco Use Types Packs/Day Years [...] on filedocumented in this encounter Care Teams Turn Out Relationship Specialty Start Date End Date Donna Romero MD, MD PCP - General Internal Medicine 07/11/20 Mannie Morillo MD Specialist Lung Cancer Air Pollution Analyst 06/03/21 Josep Givens PA-C [address] [phone] Specialist Thoracic Surgery 07/08/22 documented as of this encounter
--- OUTSIDE RECORDS SUMMARY | 2024-11-06 09:53 | XMS_ITS | Encounter Summary ---
Author Organization [facility] Address [address] [facility] [place] [address] Care Team Providers Care Customer Assistance Associate Name Role Phone Donna Romero Md, MD Primary Care Provider Unavailable Mannie Morillo MD Unavailable Josep Givens PA-C Unavailable [phone] Reason for Visit * Reason Comments E-prescribe Rx Request Encounter Details Date Type Department Care Team Description 09/26/2023 Refill Pulmonology - [place] 175 [facility] [address] [place] [phone] Ana Flaherty MD 175 [place] [phone] E-prescribe Rx Request Social History Tobacco Use [...] (HCC) documented in this encounter Care Teams Customer Assistance Associate Relationship Specialty Start Date End Date Donna Romero MD, MD PCP - General Internal Medicine 07/11/20 Mannie Morillo MD Specialist Lung Cancer Plant Taxonomy Teacher 06/03/21 Josep Givens PA-C [address] [place] [phone] Specialist Thoracic Surgery 07/08/22 documented as of this encounter
--- OUTSIDE RECORDS SUMMARY | 2024-11-06 09:53 | XMS_ITS | Encounter Summary ---
Author Organization [facility] Address [address] [facility] [place] [address] Care Team Providers Care Manufacturing Executive Name Role Phone Donna Romero Md, MD Primary Care Provider Unavailable Mannie Morillo MD Unavailable Josep Givens PA-C Unavailable [phone] Encounter Details Date Type Department Care Team Description 01/07/2022 Release of Information Medical Records [address] [place] [address] Abstract, Provider Social History Tobacco Use Types [...] on filedocumented in this encounter Care Teams Manufacturing Executive Relationship Specialty Start Date End Date Donna Romero MD, MD PCP - General Internal Medicine 07/11/20 Mannie Morillo MD Specialist Lung Cancer Monitoring Coordinator 06/03/21 Chon, Christopher, PA-[address] [phone] Specialist Thoracic Surgery 07/08/22 documented as of this encounter
--- OUTSIDE RECORDS SUMMARY | 2024-11-06 09:53 | XMS_ITS | Encounter Summary ---
Author Organization [facility] Address [address] [place] [address] Care Team Providers Care Batter Scaler Name Role Phone Donna Romero Md, MD Primary Care Provider Unavailable Mannie Morillo MD Unavailable Josep Givens PA-C Unavailable [phone] Reason for Visit * Reason Comments Imaging Review Chest CT 05/20/21 Encounter Details Date Type Department Care Team Description 06/09/2021 Abstract [facility] Medical [facility] Thoracic Surgery [place] 299 [facility] [address] [place] [phone] Josep Givens PA-C 299 [facility] [address] [place] [phone] Social History Tobacco Use Types Packs/Day Years [...] on filedocumented in this encounter Care Teams Batter Scaler Relationship Specialty Start Date End Date Donna Romero MD, MD PCP - General Internal Medicine 07/11/20 Mannie Morillo MD Specialist Lung Cancer Locomotive Pipe Fitter 06/03/21 Josep Givens PA-C [address] [place] [phone] Specialist Thoracic Surgery 07/08/22 documented as of this encounter
--- OUTSIDE RECORDS SUMMARY | 2024-11-06 09:53 | XMS_ITS | Encounter Summary ---
Author Organization [facility] Address [address] [facility] [place] [address] Care Team Providers Care Reproductive Surgeon Name Role Phone Donna Romero Md, MD Primary Care Provider Unavailable Mannie Morillo MD Unavailable Josep Givens PA-C Unavailable [phone] Encounter Details Date Type Department Care Team Description 07/18/2023 Orders Only Medical Records [address] [place] [address] Mannei Morillo MD [address] [place] [phone] Social History Tobacco Use Types Packs/Day Years [...] on filedocumented in this encounter Care Teams Reproductive Surgeon Relationship Specialty Start Date End Date Donna Romero MD, MD PCP - General Internal Medicine 07/11/20 Mannie Morillo MD Specialist Lung Cancer Allergist/Md 06/03/21 Josep Givens PA-C [address] [place] [phone] Specialist Thoracic Surgery 07/08/22 documented as of this encounter
--- OUTSIDE RECORDS SUMMARY | 2024-11-06 09:53 | XMS_ITS | Encounter Summary ---
Author Organization [facility] Address [address] [place] [address] Care Team Providers Care Showcase Trimmer Name Role Phone Donna Romero Md, MD Primary Care Provider Unavailable Mannie Morillo MD Unavailable Josep Givens PA-C Unavailable [phone] Encounter Details Date Type Department Care Team Description 12/10/2021 Orders Only [facility] Thoracic Surgery [place] 299 [facility] [address] [place] [phone] Josep Givens PA-C 299 [facility] [address] [place] [phone] History of lung cancer; Cyst of mediastinum [...] system documented in this encounter Care Teams Showcase Trimmer Relationship Specialty Start Date End Date Donna Romero MD, MD PCP - General Internal Medicine 07/11/20 Mannie Morillo MD Specialist Lung Cancer Senior Payroll Specialist 06/03/21 Josep Givens PA-C [address] [phone] Specialist Thoracic Surgery 07/08/22 documented as of this encounter
--- OUTSIDE RECORDS SUMMARY | 2024-11-06 09:53 | XMS_ITS | Encounter Summary ---
Author Organization [facility] Address [address] [facility] [place] [address] Care Team Providers Care Single Stayer Operator Name Role Phone Donna Romero Md, MD Primary Care Provider Unavailable Mannie Morillo MD Unavailable Josep Givens PA-C Unavailable [phone] Reason for Visit * Reason Comments E-prescribe Rx Request Encounter Details Date Type Department Care Team Description 07/14/2021 Refill Pulmonology - [place] 175 [facility] [address] [place] [phone] Ana Flaherty MD 175 [place] [phone] E-prescribe Rx Request Social History [...] insurance carrier is: [place] / Plan[place] / Product Type: MEDICAID [id number] documented in this encounter Plan of Treatment Not on file documented as of this encounter Visit Diagnoses Diagnosis Chronic obstructive pulmonary disease, unspecified COPD type (HCC) documented in this encounter Care Teams Single Stayer Operator Relationship Specialty Start Date End Date Donna Romero MD, MD PCP - General Internal Medicine 07/11/20 Mannie Morillo MD Specialist Lung Cancer Scientist Immunology 06/03/21 Josep Givens PA-C [address] [place] [phone] Specialist Thoracic Surgery 07/08/22 documented as of this encounter
--- OUTSIDE RECORDS SUMMARY | 2024-11-06 09:53 | XMS_ITS | Encounter Summary ---
Author Organization [facility] Address [address] [place] [address] Care Team Providers Care Name Plate Stamper Name Role Phone Donna Romero Md, MD Primary Care Provider Unavailable Mannie Morillo MD Unavailable Josep Givens PA-C Unavailable [phone] Encounter Details Date Type Department Care Team Description 05/22/2021 Orders Only [facility] Thoracic Surgery [place] 299 [facility] [address] [place] [phone] Josep Givens PA-C 299 [facility] [address] [place] [phone] Mediastinal mass Social History Tobacco Use Types [...] SCAN OF CHEST NO CONTRAST (05/20/2021) Josep Givnes PA-C CT SCANS [facility] RAD[facility] documented in this encounter Visit Diagnoses Diagnosis Mediastinal mass Swelling, mass, or lump in chest documented in this encounter Care Teams Name Plate Stamper Relationship Specialty Start Date End Date Donna Romero MD, MD PCP - General Internal Medicine 07/11/20 Mannie Morillo MD Specialist Lung Cancer Industrial Truck Mechanic 06/03/21 Josep Givens PA-C [address] [place] [phone] Specialist Thoracic Surgery 07/08/22 documented as of this encounter
--- OUTSIDE RECORDS SUMMARY | 2024-11-06 09:53 | XMS_ITS | Encounter Summary ---
Author Organization [facility] Address [address] [facility] [place] [address] Care Team Providers Care Dynamics Ax Developer Name Role Phone Donna Romero Md, MD Primary Care Provider Unavailable Mannie Morillo MD Unavailable Josep Givens PA-C Unavailable [phone] Reason for Visit * Reason Comments E-prescribe Rx Request Encounter Details Date Type Department Care Team Description 09/26/2023 Refill Pulmonology - [place] 175 [facility] [address] [place] [phone] Ana Flaherty MD 175 [place] [phone] E-prescribe Rx Request Social History Tobacco Use [...] (HCC) documented in this encounter Care Teams Dynamics Ax Developer Relationship Specialty Start Date End Date Donna Romero MD, MD PCP - General Internal Medicine 07/11/20 Mannie Morillo MD Specialist Lung Cancer Labor Employment Associate 06/03/21 Josep Givens PA-C [address] [place] [phone] Specialist Thoracic Surgery 07/08/22 documented as of this encounter
--- OUTSIDE RECORDS SUMMARY | 2024-11-06 09:54 | XMS_ITS | Encounter Summary ---
Author Organization [facility] Address [address] [facility] [place] [address] Care Team Providers Care Front Office Assistant Name Role Phone Donna Romero Md, MD Primary Care Provider Unavailable Donna Romero Md, MD Primary Care Provider Unavailable Mannie Morillo MD Unavailable Josep Givens PA-C Unavailable [phone] Reason for Visit * Reason Comments E-prescribe Rx Request Encounter Details Date Type Department Care Team Description 02/02/2020 Refill Medical Records 444 [place] [address] Ana Flaherty MD [address] [place] [phone] E-prescribe Rx Request Social History Tobacco [...] / Plan[place] / Product Type: MEDICAID [id number] documented in this encounter Plan of Treatment Not on file documented as of this encounter Visit Diagnoses Not on filedocumented in this encounter Care Teams Front Office Assistant Relationship Specialty Start Date End Date Donna Romero MD, MD PCP - General Internal Medicine 10/30/18 07/10/20 Donna Romero MD, MD PCP - General Internal Medicine 07/11/20 Mannie Morillo MD Specialist Lung Cancer Elementary Ell Teacher 06/03/21 Josep Givens PA-C [address] [place] [phone] Specialist Thoracic Surgery 07/08/22 documented as of this encounter
--- OUTSIDE RECORDS SUMMARY | 2024-11-06 09:54 | XMS_ITS | Encounter Summary ---
Author Organization [facility] Address [address] [facility] [place] [address] Care Team Providers Care Wrapper Opener Name Role Phone Donna Romero Md, MD Primary Care Provider Unavailable Donna Romero Md, MD Primary Care Provider Unavailable Mannie Morillo MD Unavailable Josep Givens PA-C Unavailable [phone] Reason for Visit * Reason Onset Date Comments Provider Call Back 03/07/2020 Encounter Details Date Type Department Care Team Description 03/07/2020 Telephone Pulmonology - [place] 175 [facility] [address] [place] [address] Ana Flaherty MD 175 [place] [phone] Provider Call Back Social History Tobacco Use Types Packs/Day Years [...] encounter Miscellaneous Notes * Telephone Encounter - Freda Jacobo - 03/07/2020 12:10 PM EST Caller requesting call back from provider: Is the caller the patient? YES If caller is not the patient, what is the callers name? N/A Callers relationship to patient? N/A If person calling is not the patient themselves, is there a verbal release in FYI or permanent comments for this person: YES Reason for call back: Patient states was called about booking Lung Scan Dr Flaherty ordered and told she did not qualify for it and not sure what she is suppose to do now . Please call and advise Caller offered to speak with the nurse for assistance: YES Response: Patient offered to speak with nurse for assistance and patient agreed. Message forwarded to nurse. documented in this encounter Plan of Treatment Not on file documented as of this encounter Visit Diagnoses Not on filedocumented in this encounter Care Teams Wrapper Opener Relationship Specialty Start Date End Date Donna Romero MD, MD PCP - General Internal Medicine 10/30/18 07/10/20 Donna Romero MD, MD PCP - General Internal Medicine 07/11/20 Mannie Morillo MD Specialist Lung Cancer Restaurant Inspector 06/03/21 Josep Givens PA-C [address] [place] [phone] Specialist Thoracic Surgery 07/08/22 documented as of this encounter
--- OUTSIDE RECORDS SUMMARY | 2024-11-06 09:54 | XMS_ITS | Encounter Summary ---
Author Organization [facility] Address [address] [facility] [place] [address] Care Team Providers Care Mail Handler Name Role Phone Donna Romero Md, MD Primary Care Provider Unavailable Donna Romero Md, MD Primary Care Provider Unavailable Mannie Morillo MD Unavailable Josep Givens PA-C Unavailable [phone] Encounter Details Date Type Department Care Team Description 05/01/2020 Pack Train Driver Report Medical Records 444 [facility] [place] [address] Mannie Morillo MD [address] [place] [address] Social History Tobacco Use Types Packs/Day Years [...] on filedocumented in this encounter Care Teams Mail Handler Relationship Specialty Start Date End Date Donna Romero MD, MD PCP - General Internal Medicine 10/30/18 07/10/20 Donna Romero MD, MD PCP - General Internal Medicine 07/11/20 Mannie Morillo MD Specialist Lung Cancer Medical Equipment Repairer 06/03/21 Josep Givens PA-C [address] [phone] Specialist Thoracic Surgery 07/08/22 documented as of this encounter
--- OUTSIDE RECORDS SUMMARY | 2024-11-06 09:54 | XMS_ITS | Encounter Summary ---
Author Organization [facility] Address [address] [facility] [place] [address] Care Team Providers Care Conveyor Tender Concrete Mixing Plant Name Role Phone Jorge Barth Primary Care Provider UnavailDonna Orlando Md, MD Primary Care Provider Unavailable Donna Romero Md, MD Primary Care Provider Unavailable Mannie Morillo MD Unavailable Josep Givens PA-C Unavailable [phone] Reason for Visit * Reason Onset Date Comments APPOINTMENT 08/18/2017 Encounter Details Date Type Department Care Team Description 08/18/2017 Telephone Pulmonology - [place] 175 [facility] [address] [place] [address] Ana Flaherty MD 175 [place] [phone] APPOINTMENT Social History Tobacco Use [...] on filedocumented in this encounter Care Teams Conveyor Tender Concrete Mixing Plant Relationship Specialty Start Date End Date Jorge Barth PCP - General 03/19/08 10/29/18 Donna Romero MD, MD PCP - General Internal Medicine 10/30/18 07/10/20 Donna Romero MD, MD PCP - General Internal Medicine 07/11/20 Mannie Morillo MD Specialist Lung Cancer Jewel Setter 06/03/21 Josep Givens PA-C [address] [place] [phone] Specialist Thoracic Surgery 07/08/22 documented as of this encounter
--- OUTSIDE RECORDS SUMMARY | 2024-11-06 09:54 | XMS_ITS | Encounter Summary ---
Author Organization [facility] Address [address] [facility] [place] [address] Care Team Providers Care Frame Runner Name Role Phone Jorge Barth Primary Care Provider UnavailDonna Orlando Md, MD Primary Care Provider Unavailable Donna Romero Md, MD Primary Care Provider Unavailable Mannie Morillo MD Unavailable Josep Givens PA-C Unavailable [phone] Encounter Details Date Type Department Care Team Description 05/10/2017 Transfer Records Medical Records [address] [place] [address] Abstract, Provider Social History Tobacco Use Types [...] on filedocumented in this encounter Care Teams Frame Runner Relationship Specialty Start Date End Date Jorge Barth PCP - General 03/19/08 10/29/18 Donna Romero MD, MD PCP - General Internal Medicine 10/30/18 07/10/20 Donna Romero MD, MD PCP - General Internal Medicine 07/11/20 Mannie Morillo MD Specialist Lung Cancer Bean Viner 06/03/21 Josep Givens PA-C [address] [place] [phone] Specialist Thoracic Surgery 07/08/22 documented as of this encounter
--- OUTSIDE RECORDS SUMMARY | 2024-11-06 09:54 | XMS_ITS | Patient Health Record ---
Author Organization [facility] Address [address] [place] [address] Care Team Providers Care Fretted String Instrument Repairer Name Role Phone Lary (RETIRED) Jorge EDMOND [...] Problem Screening for malignant neoplasm of colon (971936017) Special screening for malignant neoplasms, colon (V76.51) Active confirmed Plan Of Treatment No Information Insurance Providers Payer Name Payer Address Payer Phone Subscriber Number Group Number Insured Name Patient Relationship to Insured Coverage Start Date Coverage End Date MEDICAID OF [facility] [address] [place] [phone] [id number] CARLOTA ZELAYA Self - patient is the insured Medical (General) History Medical History History ICD Code depression osteoporosis muscle spasms COPD elevated cholesterol back pain degenerative joint disease involving the back Surgical History Surgery Date(Month/Year) cervical disc fusion
--- OUTSIDE RECORDS SUMMARY | 2024-11-06 09:54 | XMS_ITS | Encounter Summary ---
Author Organization [facility] Address [address] [facility] [place] [address] Care Team Providers Care Shove Up Name Role Phone Donna Romero Md, MD Primary Care Provider Unavailable Donna Romero Md, MD Primary Care Provider Unavailable Mannie Morillo MD Unavailable Josep Givens PA-C Unavailable [phone] Reason for Visit * Reason Comments E-prescribe Rx Request Encounter Details Date Type Department Care Team Description 02/15/2020 Refill Pulmonology - [place] 175 [facility] [address] [place] [address] Ana Flaherty MD 175 [place] [phone] E-prescribe Rx Request Social History Tobacco Use [...] (HCC) documented in this encounter Care Teams Shove Up Relationship Specialty Start Date End Date Donna Romero MD, MD PCP - General Internal Medicine 10/30/18 07/10/20 Donna Romero MD, MD PCP - General Internal Medicine 07/11/20 Mannie Morillo MD Specialist Lung Cancer Editorial Cartoonist 06/03/21 Josep Givens PA-C [address] [place] [phone] Specialist Thoracic Surgery 07/08/22 documented as of this encounter
== END 2024-11-06 09:44 | disposition home or self-care (01) ==
LOC: HO.ENCR 09:09
PROVIDERS: PCP Internal Medicine; Visit Provider Internal Medicine Endocrinology, Diabetes & Metabolism
DX: M81.0 Age-related osteoporosis without current pathological fracture (principal)

== ENCOUNTER → 2024-11-06 09:08 | Outpatient (BNVA) | payer MEDICARE, MEDICAID, SELFPAY | PROVIDERS: PCP Internal Medicine; Visit Provider Internal Medicine Endocrinology, Diabetes & Metabolism | DX: M81.0 Age-related osteoporosis without current pathological fracture (principal); Z79.620 Long term (current) use of immunosuppressive biologic | CPT/HCPCS: 96372; J3111 ==

== ENCOUNTER 2024-12-11 09:06 | Outpatient (AMB) | payer MEDICARE, MEDICAID, SELFPAY ==
--- OUTSIDE RECORDS SUMMARY | 2024-12-11 09:47 | XMS_ITS | Clinical Summary ---
Author Organization [facility] [employer] Address [address] [place] [address] Care Team Providers Care Barrel Driller Name Role Phone Unavailable Primary Care Provider Unavailabl e Allergies No known active allergies Medications albuterol (2.5 MG/3ML) 0.083% nebulizer solution Inhale 2.5 mg every 4 (four) hours if needed. 1 Active atorvastatin (Lipitor) 10 MG tablet Take 10 mg by mouth at bedtime. 5 Active midodrine (Proamatine) 5 MG tablet Take 5 mg by mouth before breakfast, before lunch, and before evening meal. 5 06/21/19 26 Active nabumetone (Relafen) 500 MG tablet TAKE 1 TABLET BY MOUTH TWICE DAILY NEEDED FOR JOINT PAIN Active omeprazole (PriLOSEC) [address] capsule Take 20 mg by mouth Once per day. Active cholecalciferol (Vitamin D-3) 125 MCG (5000 UT) tablet Take 5,000 Units by mouth Once per day. Active Trelegy Ellipta 200-62.5-25 MCG/ACT aerosol powder Inhale 200 mcg Once per day. 5 04/13/19 26 Active atorvastatin (Lipitor) 20 MG tablet Take 20 mg by mouth Once per day. Active ibuprofen 600 MG tablet Take 1 tablet (600 mg) by mouth every 6 (six) hours if needed for mild pain for up to 20 doses. 20 tablet 5 Active ibuprofen 600 MG tablet Take 1 tablet (600 mg) by mouth every 6 (six) hours if needed for mild pain for up to 20 doses. 20 tablet 5 Active ibuprofen 400 MG tabletIndicatio ns:History of tooth extraction, unspecified edentulism class Take 1 tablet (400 mg) by mouth every 6 (six) hours if needed for moderate pain for up to 20 doses. 20 tablet 5 Active acetaminophen (Tylenol) 500 MG tabletIndicatio ns:History of tooth extraction, unspecified edentulism class Take 1 tablet (500 mg) by mouth every 6 (six) hours if needed for mild pain for up to 20 doses. 20 tablet 5 Active amoxicillin-cla vulanate (Augmentin) 875-125 MG tabletIndicatio ns:Dental abscess Take 1 tablet by mouth 2 times daily for 10 days. 20 tablet 5 12/03/19 25 Additional Information Patient not taking.Reported on 12/05/2024 Active Problems Problem Noted Date Diagnosed Date Encounter for screening for malignant neoplasm o f colon 11/22/2024 Shortness of breath 06/20/2024 Weakness generalized 04/05/2024 Hypotension 04/04/2024 Multifocal pneumonia 03/24/2024 Hiatal hernia 12/15/2021 Overview (11/22/2024): Last Assessment & Plan: CT demonstates small hiatal hernia and patient is symptomatic. She is not medically managed at this time and once optimized and her symptoms continue, can consider surgical treatment. Prescribe Omperazole 20 mg daily and refer to GI for evaluation. History of lung cancer 06/15/2021 Overview (11/22/2024): Last Assessment & Plan: May 2020 underwent a robotic right upper lobectomy for stage Ia squamous cell carcinoma and who is also being followed for an anterior mediastinal mass. While patient was in office we reviewed her most recent chest CT scan which was performed at [facility] In July of 2023 shows Continued enlargement [...] discuss results. 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 Ramírez is [...] scan in 6 months. Tobacco user 11/01/2016 Encounters Date Type Department Care Team Description 12/05/2024 10:00 AM EDT Office Visit [facility] [address] [place] [address] Rip Noriega, MARQUISE Dental caries (Primary Dx); Periodontal disease; History of tooth extraction, unspecified edentulism class 11/22/2024 10:45 AM EDT Office Visit [facility] [address] [place] [address] Rip Noriega, MARQUISE Dental abscess (Primary Dx) 11/01/2024 1:00 PM EDT Office Visit [facility] [address] [place] [address] Ruddy Claudio DDS from Last 3 Months Social History Tobacco Use Types Packs/Day Years Used Date Smoking Tobacco: Every Day Cigarettes Smokeless Tobacco: Current Tobacco Cessation:Ready to Q uit: Not Asked; Counseling Given: Not Answered Alcohol Use Standard Drinks/Week Comments Never 0 (1 standard drink = 0.6 oz pur e alcohol) Comments Unknown Sex and Gender Information Value Date Recorded Sex Assigned at Female 11/01/2024 8:05 AM EDT Legal Sex Female 8:02 AM EDT Gender Identity Female 11/01/2024 8:05 AM EDT Sexual Orientation Choose not to disclose 2024 8:05 AM EDT Last Filed Vital Signs Vital Sign Reading Time Taken Comments Blood Pressure 108/62 12/05/2024 10:12 AM EDT Pulse - - Temperature - - Respiratory Rate - - Oxygen Saturation - - Inhaled Oxygen Concentration - - Weight - - Height - - Body Mass Index - - Plan of Treatment Upcoming Encounters Date Type Department Care Team (Late st Contact Info) Description 12/25/2024 9:00 AM EST Office Visit [facility] [address] [place] [address] Rip Noriega, DMD [address] [place] [address] Health Maintenance Due Date Last Done Comments CT Colonography 1954 Colonoscopy 1954 Colorectal Cancer Screening 1954 Dental Oral Exam 1954 Dental Prophylaxis 1954 Dental X-Ray: Bitewings 1954 Depression Screening 1954 FIT DNA/Cologuard 1954 FIT 1954 FOBT 1954 Lipid Panel 1954 SDOH Screening 1954 Sigmoidoscopy 1954 Alcohol/Substance Use Screening 1966 Hepatitis C Screening 1972 DTaP/Tdap/Td Vaccines (1 - Tdap) 1973 Mammogram 1994 RSV Patients and Patients Aged 60 years or older (1 - Risk 60-74 years 1-dose series) 2014 Zoster Vaccines (3 of 3) 07/09/2018 05/14/2018, 09/07 COVID-19 Vaccine ( - season) 2024 05/15/2021, 11/15/2020, 05/17/2020, Additional history exists Influenza Vaccine (#1) 2024 , 11/17/2016, 12/10/2015, Additional history exists Tobacco Screening 12/05/2025 12/05/2024 Dental X-Ray: Full Mouth 11/03/2027 11/01/2024 Pneumococcal [...] Procedure Name Priority Date/Time Associated Diagnosis Comments CASE PRESENTATION, DETAILED AND EXTENSIVE TREATMENT PLANNING Routine 12/05/2024 10:00 AM EDT Dental caries Periodontal disease 20 EXTRACTION, ERUPTED TOOTH OR EXPOSED ROOT (ELEVATION/FORCEPS REMOVAL) Routine 12/05/2024 10:00 AM EDT Dental caries Periodontal disease 22 EXTRACTION, ERUPTED TOOTH OR EXPOSED ROOT (ELEVATION/FORCEPS REMOVAL) Routine 12/05/2024 10:00 AM EDT Dental caries Periodontal disease 29 EXTRACTION, ERUPTED TOOTH OR EXPOSED ROOT (ELEVATION/FORCEPS REMOVAL) Routine 12/05/2024 10:00 AM EDT Dental caries Periodontal disease 28 EXTRACTION, ERUPTED TOOTH OR EXPOSED ROOT (ELEVATION/FORCEPS REMOVAL) Routine 12/05/2024 10:00 AM EDT Dental caries Periodontal disease 27 EXTRACTION, ERUPTED TOOTH OR EXPOSED ROOT (ELEVATION/FORCEPS REMOVAL) Routine 12/05/2024 10:00 AM EDT Dental caries Periodontal disease 26 EXTRACTION, ERUPTED TOOTH OR EXPOSED ROOT (ELEVATION/FORCEPS REMOVAL) Routine 12/05/2024 10:00 AM EDT Dental caries Periodontal disease 25 EXTRACTION, ERUPTED TOOTH OR EXPOSED ROOT (ELEVATION/FORCEPS REMOVAL) Routine 12/05/2024 10:00 AM EDT Dental caries Periodontal disease 24 EXTRACTION, ERUPTED TOOTH OR EXPOSED ROOT (ELEVATION/FORCEPS REMOVAL) Routine 12/05/2024 10:00 AM EDT Dental caries Periodontal disease 23 EXTRACTION, ERUPTED TOOTH OR EXPOSED ROOT (ELEVATION/FORCEPS REMOVAL) Routine 12/05/2024 10:00 AM EDT Dental caries Periodontal disease 21 EXTRACTION Routine 12/05/2024 12:00 AM EDT CASE PRESENTATION, DETAILED AND EXTENSIVE TREATMENT PLANNING Routine 11/22/2024 10:45 AM EDT Dental abscess PALLIATIVE (EMERGENCY) TREATMENT OF DENTAL PAIN - MINOR PROCEDURE Routine 11/22/2024 10:45 AM EDT Dental abscess LIMITED ORAL EVALUATION - PROBLEM FOCUSED Routine [...] 10 EXTRACTION Routine 11/01/2024 12:00 AM EDT 13 EXTRACTION Routine 11/01/2024 12:00 AM EDT 14 EXTRACTION Routine 11/01/2024 12:00 AM EDT 16 EXTRACTION Routine 11/01/2024 12:00 AM EDT 17 EXTRACTION Routine 11/01/2024 12:00 AM EDT 18 EXTRACTION Routine 11/01/2024 12:00 AM EDT 19 EXTRACTION Routine 11/01/2024 12:00 AM EDT 30 EXTRACTION Routine 11/01/2024 12:00 AM EDT 31 EXTRACTION Routine 11/01/2024 12:00 AM EDT 32 EXTRACTION Routine 11/01/2024 12:00 AM EDT from Last 3 Mon[place] [id number] [facility] MEDICAID STAND ADULT JOAN MARRERO [id number]
--- OUTSIDE RECORDS SUMMARY | 2024-12-11 09:47 | XMS_ITS | Patient Health Record ---
Author Organization [facility] Address [address] [place] [address] Care Team Providers Care Window Decorator Name Role Phone Lary (RETIRED) Jorge EDMOND [...] Problem Screening for malignant neoplasm of colon (983015515) Special screening for malignant neoplasms, colon (V76.51) Active confirmed Plan Of Treatment No Information Insurance Providers Payer Name Payer Address Payer Phone Subscriber Number Group Number Insured Name Patient Relationship to Insured Coverage Start Date Coverage End Date [facility] [address] [place] [phone] [id number] CARLOTA ZELAYA Self - patient is the insured Medical (General) History Medical History History ICD Code depression osteoporosis muscle spasms COPD elevated cholesterol back pain degenerative joint disease involving the back Surgical History Surgery Date(Month/Year) cervical disc fusion
--- OUTSIDE RECORDS SUMMARY | 2024-12-11 09:47 | XMS_ITS | Clinical Summary ---
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 She is advised to call the [...] Date Site/Laterality Comments OTHER SURGICAL HISTORY PROCEDURE: [place] RMVL LUNG OTH/THN PNUMEC RESXN-PLCTJ EMPHY LUNG OTHER SURGICAL HISTORY 06/03/2020 Right PROCEDURE: [place] RESCJ&BRONCHOPLASTY PFRMD TM LOBEC/SGMECTOMY; COMMENT: RUL Wedge [...] your loved ones. For example, early childhood education coordinator or elderly care for an older [...] Description 12/18/2024 8:40 AM EST Office Visit [facility] [address] [place] [address] Sandra Malone NP [address] [place] [address] [address] [place] [phone] 01/22/2025 9:30 AM EST Office Visit Pulmonology - [place] [address] [facility] [address] [place] [phone] Ana Flaherty MD [address] [place] [phone] Health Maintenance Due Date Last Done Comments Breast Cancer Screening 1954 Colorectal Cancer Screening: Colonoscopy 1954 DTaP,Tdap,and Td Vaccines (1 - Tdap) 1973 RSV Immunization Adult Patients (1 - Risk 50-74 years 1-dose series) 2004 Zoster Vaccines (2 of 2) 07/09/2018 05/14/2018, [...] on patient's age to complete this topic Insurance [place] Advance Directives * Full Code - [...] currently active code status orders. Care Teams Forms Analyst Relationship Specialty Start Date End Date Donna Romero MD [address] [place] [address] PCP - General Internal Medicine 10/30/18
--- NOTE | 2024-12-11 09:48 | AM.OFFVISNUR ---
Intake Visit Reasons: Evenity #10 Allergies No Known Allergies Allergy (Verified 04/23/24 23:22) Office Meds romosozumab-aqqg 210 mg/2.34 mL(105 mg/1.17 mL x2)subcutaneous syringe Performing Provider: Alexi Givens MD Performing Location[place] [facility] Administered by: Jojo Hunt RN on 12/11/24 09:40 Dose Route Admin Location Dispensed Lot Number Expiration Date [employer] Doctor 210 mg subcut bilateral upper arms 2.34 mL [id number] 01/06/27 73572-469-21 [employer] Total Dispensed Waste 2.34 mL 0 % Comments: No adverse reactions reported from previous injection. Pt tolerated injection well. Pt scheduled in 4 weeks for next appt. No further questions at this time. Assessment & Plan Assessment & Plan Orders: Orders AMB Romosozumab Injection Patient Supplied Today M81.0 - Age-related osteoporosis without current pathological fracture Coding
== END 2024-12-11 09:47 | disposition home or self-care (01) ==
LOC: HO.ENCR 09:06
PROVIDERS: PCP Internal Medicine; Visit Provider Internal Medicine Endocrinology, Diabetes & Metabolism
DX: M81.0 Age-related osteoporosis without current pathological fracture (principal)

== ENCOUNTER → 2024-12-11 09:06 | Outpatient (BNVA) | payer MEDICARE, MEDICAID, SELFPAY | PROVIDERS: PCP Internal Medicine; Visit Provider Internal Medicine Endocrinology, Diabetes & Metabolism | DX: M81.0 Age-related osteoporosis without current pathological fracture (principal) | CPT/HCPCS: 96372; J3111 ==

== ENCOUNTER 2025-01-14 09:09 | Outpatient (AMB) | payer MEDICARE, MEDICAID, SELFPAY ==
--- NOTE | 2025-01-14 09:34 | AM.OFFVISNUR ---
Intake Visit Reasons: Osteoporosis/Evenity #11 Allergies No Known Allergies Allergy (Verified 04/23/24 23:22) Office Meds romosozumab-aqqg 210 mg/2.34 mL(105 mg/1.17 mL x2)subcutaneous syringe Performing Provider: Alexi Givens MD Performing Location[place] [facility] [place] [facility] Administered by: Jojo Hunt RN on 01/14/25 09:20 Dose Route Admin Location Dispensed Lot Number Expiration Date [facility] [employer] 210 mg subcut bilateral upper arms 2.34 mL [id number] 01/06/27 95015-799-76 [employer] Total Dispensed Waste 2.34 mL 0 % Comments: No adverse reactions reported from previous injection. Pt tolerated injection well. Pt scheduled in 4 weeks for next appt. No further questions at this time. Assessment & Plan Assessment & Plan Orders: Orders AMB Romosozumab Injection Patient Supplied Today M81.0 - Age-related osteoporosis without current pathological fracture Coding
== END 2025-01-14 09:32 | disposition home or self-care (01) ==
LOC: HO.ENCR 09:10
PROVIDERS: PCP Internal Medicine; Visit Provider Internal Medicine Endocrinology, Diabetes & Metabolism
DX: M81.0 Age-related osteoporosis without current pathological fracture (principal)

== ENCOUNTER → 2025-01-14 09:09 | Outpatient (BNVA) | payer MEDICARE, MEDICAID, SELFPAY | PROVIDERS: PCP Internal Medicine; Visit Provider Internal Medicine Endocrinology, Diabetes & Metabolism | DX: M81.0 Age-related osteoporosis without current pathological fracture (principal) | CPT/HCPCS: 96372; J3111 ==

== ENCOUNTER 2025-01-29 08:47 | Outpatient (AMB) | payer MEDICARE, MEDICAID, SELFPAY ==
--- NOTE | 2025-01-29 08:52 | A.OFFPC_ITS ---
Vital Signs 01/29/25 08:53 Height 4 ft 11 in Weight 89 lb BMI 18.0 BP 100/70 Blood Pressure Location Lt brachial Position Sitting Respiration 16 Pulse 86 Pulse Source Pulse Oximeter Temp 97.6 F Temp Source Oral Pulse Oximetry (%) 94 Oxygen Delivery Method Room Air Intake Visit Reasons: Annual PE Intake Note: Pt is here today for her PE Patient Safety Sitter Required: No Allergies No Known Allergies Allergy (Verified 01/29/25 09:01) Medication List - Last Reconciled 01/29/25 by Donna Romero MD albuterol sulfate 90 mcg/actuation inhalation albuterol sulfate 90 mcg/actuation (Ventolin HFA) 2 puffs inhalation Q6H PRN atorvastatin 10 mg PO DAILY cholecalciferol (vitamin D3) 25 mcg PO DAILY fosvzcwzuzs-xbgzlnnbq-htuexvou 200-62.5-25 mcg (Trelegy Ellipta) 1 inh inhalation DAILY magnesium oxide 400 mg PO DAILY midodrine 7.5 mg (1.5 x 5 mg) PO TID 30 days outnfmjz-dff-jfpm-FA-vit K-lut 8 mg iron-400 mcg-50 mcg (Centrum Silver Women) 1 tab PO DAILY nabumetone 500 mg PO BID PRN omeprazole 20 mg PO DAILY Oxygen Home Use As directed romosozumab-aqqg (Evenity) 210 mg (2.34 mL) subcut .qmonth Tobacco use date assessed: 01/29/25 Fall risk assessment: No Falls in past year Last assessed Fall Risk: 01/29/25 Dental Screening Dental Screen Date: 01/29/25 Did you have a dental visit in the last 12 months?: Yes Did you have a dental problem in the last 6 months where you did not have access to dental care?: Yes Was dental information given to patient?: Patient has dentist HPI Annual PE HPI Details 69 year-old lady with history of COPD on prn use of 2 L home oxygen, history of lung cancer status post right upper lobectomy, GERD, hyperlipidemia, osteoporosis currently on Evenity, active cigarette smoker, now down to 2 cigarettes a day, who started using the nicotine patch 21 mg just last week, history of adenomatous polyp of colon, seen on colonoscopy done in [address] Schmidt, lumbar degenerative disc disease and history of thoracic compression fracture, here today for her physical exam. She currently sees her Chargeback Analyst at [place], Dr. Flaherty, and is on Trelegy and oxygen as needed.. Her lung cancer screening was completed in July and was fine. She is currently being seen by Dr. Givens for osteoporosis, who started her with Evenity shots , her last scheduled injection next week, after which she will see him to discuss further management. She has a history of a compression fracture and is not a candidate for injections due to severe bone thinning. Her next bone density scan is due in December of next year. She reports chronic hip pain, for which she sees a pulping machine operator, Dr. Giron, though the treatments have not been helping. She takes nabumetone once daily, which provides some relief. Her last colonoscopy was in 2022, revealing a polyp and internal hemorrhoids, with a recommendation for a repeat exam in five years. Up-to-date with her mammogram . An ultrasound last year showed uterine fibroids that are not causing any problems. The patient has experienced unintentional weight loss, dropping from 94 pounds in April to her current weight of 89 pounds. She states she is eating and using protein shakes. Her blood pressure is well-controlled with medication prescribed by her patient relations liaison, Dr. Harris. Her immunizations are not fully up to date; she received Prevnar 20 but only had one dose of the shingles vaccine in 2019. Her last recorded influenza vaccine was in 2019, and she has not received the RSV or COVID vaccines. [facility] Medical History (Updated 02/05/25 @ 23:38 by Donna Romero MD) History of lung cancer History of adenomatous polyp of colon Chronic right shoulder pain Hiatal hernia Colon cancer screening Generalized anxiety disorder Polyarthralgia Leg cramps Squamous cell carcinoma Osteoporosis Restless leg syndrome COPD (chronic obstructive pulmonary disease) Impaired fasting glucose Fall Dyslipidemia Essential hypertension Surgical History Hx of colonoscopy S/P partial lobectomy of lung History of fusion of cervical spine History of hernia repair Family History Father Esophageal cancer Mother Cirrhosis HTN (hypertension) Diabetes mellitus Liver problem Brother Mental health disorder Daughter No problems noted. Social History Housing: House Alcohol intake: never Patient Tobacco Use Status: Former Tobacco user Cigarettes Per Day: 1 Years Smoked: 50 e-Cigarette/Vaping Use: Never Used service: No Current occupational status: disabled Current occupation: right hand dominant Cognitive needs: No Hearing needs: No Vision needs: No Questionnaire PHQ-9 Over the last 2 weeks, how often have you been bothered by any of the following problems? 1. Little interest or pleasure in doing things: several days 2. Feeling down, depressed, or hopeless: not at all 3. Trouble falling or staying asleep, or sleeping too much: several days 4. Feeling tired or having little energy: several days 5. Poor appetite or overeating: several days 6. Feeling bad about yourself - or that you are a failure or have let yourself or your family down: several days 7. Trouble concentrating on things, such as reading the newspaper or watching television: not at all 8. Moving or speaking so slowly that other people could have noticed. Or the opposite - being so fidgety or restless that you have been moving around a lot more than usual: not at all 9. Thoughts that you would be better off or of hurting yourself in some way: several days Total score: 6 Depression Screening Interpretation: Negative Depression Screening Done: Yes Source: Developed by Drs. Alexi Yadav, Brenda Barahona, Alonzo Smiley and colleagues, with an educational livia from [employer]. Thrive Questionnaire Date Thrive assessed: 04/19/24 I am a: Patient What is your living situation today?: I have a steady place to live Within the past 12 months, did the food you bought not last and you didn't have the money to get more?: Never true Within the past 12 months, did you worry whether your food would run out before you got money to buy more?: Never true Do you have trouble paying for medicines?: No Do you have trouble getting transportation to medical appointments?: No Do you have trouble paying your heating and electricity bill?: No Do you have trouble taking care of your child, family member or friend?: No Do you have trouble with day-to-day activities such as bathing, preparing meals, shopping, managing finances, etc.?: No Are you currently unemployed and looking for a job?: No Are you interested in more education?: No Currently or been in a relationship where the following occur: No concerns reported THRIVE Score: 0 JENAE-7 AMB Questionnaire JENAE-7 Date JENAE - 7 assessed: 01/29/25 Feeling nervous, anxious, or on edge: 0 = Not at all Not being able to stop or control worryin = Not at all Worrying too much about different things: 0 = Not at all Trouble relaxin = Not at all Being so restless that it is hard to sit still: 0 = Not at all Becoming easily annoyed or irritable: 0 = Not at all Feeling afraid as if something awful might happen: 0 = Not at all Total JENAE-7 score (0-4 normal; 5-9 mild; 10-14 moderate; 15-21 severe): 0 Source: Developed by Drs. Alexi Yadav, Brenda Barahona, Alonzo Smiley and colleagues, with an educational livia from [employer]. JENAE-7 Assessment Billing JENAE-7 Assessment Tool: JENAE-7 Assessment 41653 Review of Systems Const Denies body aches, Denies chills, Reports difficulty sleeping (Occasional), Reports fatigue, Denies fever(s), Denies frequent falls, Denies malaise and Denies poor appetite Eyes Reports no additional complaints ENT Denies hoarseness Card Denies chest pain, Denies irregular heart rhythm and Denies dyspnea Resp Denies cough and Denies dyspnea GI Denies abdominal pain, Denies melena, Denies hematochezia, Denies change in bowel habits, Denies diarrhea and Denies nausea Reports no additional complaints Musc Denies myalgias, Denies muscle cramps, Denies numbness, Reports stiffness and Denies tingling Skin/Breast Denies breast skin changes, Denies breast pain, Denies breast mass, Reports dry skin and Denies rash Neuro Denies frequent falls, Denies numbness and Denies tingling Psych Reports no additional complaints Endo Reports fatigue Carlin/Lymph Reports no additional complaints Aller/Immun Reports no additional complaints Physical exam (Primary Care) Vital Signs: Last Vital Signs Temp 97.6 F 01/29/25 08:53 Pulse 86 01/29/25 08:53 Resp 16 01/29/25 08:53 BP 100/70 01/29/25 08:53 Pulse Ox 94 01/29/25 08:53 Oxygen Delivery Method Room Air 01/29/25 08:53 BMI result Body Mass Index 18.0 Tobacco/Smoking Status: Tobacco use Status Tobacco use date assessed 01/29/25 01/29/25 08:54 Patient Tobacco Use Status Former Tobacco user 01/29/25 08:54 Tobacco use type 08/01/24 09:29 e-Cigarette/Vaping Use Never Used 01/29/25 08:54 PHQ-9: PHQ-9 Score PHQ-9: Total score 6 02/05/25 22:15 Depression Screening Interpretation: Negative Thrive Assessment: Date of Thrive Assessment Date Thrive assessed 04/19/24 01/29/25 08:54 Currently or been in a relationship where the following occur: No concerns reported Const Orientation/consciousness: patient oriented x3 HENMT Face and sinus: Yes face symmetric Mouth: Normal oral and palatal mucosa present and moist mucous membranes Eyes General: appearance normal, both eyes and all related structures Neck Other: Supple with no lymphadenopathy, thyroid gland nonpalpable Chest Breast/axilla palpation: normal palpation of the breasts Resp Auscultation: clear to auscultation bilaterally Cardio Other: S1-S2 present regular rate and rhythm GI Inspection: Yes normal to inspection Palpation (GI): Soft to palpation, nontender, no guarding and no masses General: Yes no CVA tenderness Back/Spine/Pelvis Back: no CVA tenderness and No back tenderness Skin General skin exam: no rashes or lesions noted Neuro General: patient oriented x3, gait normal, tone normal, moves all extremities, Normal light touch and pain sensation, no focal motor deficits and CN's II-XI intact bilaterally Extrem General: Yes no pedal edema and Yes normal gait Psych Appearance: grossly normal Mental Status: mental status grossly normal Speech and movement: Normal speech and movement present Affect: normal affect Coding Level of Care Code Est Pt Prev Care >65y(39815) Diagnoses Annual visit for general adult medical examination with abnormal findings Z00.01 Dyslipidemia E78.5 Age-related osteoporosis without current pathological fracture M81.0 Osteoporosis type: age-related Presence of current pathological fracture: without current pathological fracture History of adenomatous polyp of colon Z86.0101 History of lung cancer Z85.118 Degeneration of intervertebral disc of lumbar region with discogenic back pain M51.360 Disc-related pain type: discogenic back pain only Chronic obstructive pulmonary disease with emphysema, unspecified emphysema type J43.9 COPD type: emphysema Emphysema type: unspecified Cigarette smoker motivated to quit F17.210 Additional Codes JENAE-7 Assessment Billing - JENAE-7 Assessment Tool: JENAE-7 Assessment 18819 ([id number]) Assessment & Plan Assessment & Plan (1) Annual visit for general adult medical examination with abnormal findings: Code(s): Z00.01 - Encounter for general adult medical examination with abnormal findings Plan: Reminded to get her fasting labs done.. Recommended dental visit every 6 months and regular eye exams, at least every 2 years. Up-to-date with her yearly mammogram screening . Reminded to get her yearly flu vaccine, her 2nd Shingrix dose, RSV vaccination. Up-to-date Vaccination. Due for her Colonoscopy in 2027 (2) Dyslipidemia: Code(s): E78.5 - Hyperlipidemia, unspecified Category: Medical Plan: Continue atorvastatin 10 mg daily. Reminded to get fasting labs done (3) Osteoporosis: Code(s): M81.0 - Age-related osteoporosis without current pathological fracture Category: Medical Qualifiers: Osteoporosis type: age-related Presence of current pathological fracture: without current pathological fracture Qualified Code(s): M81.0 - Age- related osteoporosis without current pathological fracture Plan: Currently on Evenity followed at endocrine clinic (4) History of adenomatous polyp of colon: Comment: Removed on colonoscopy done by Dr. Schmidt 2022 Code(s): Z86.0101 - Personal history of adenomatous and serrated colon polyps Category: Medical Plan: Repeat colonoscopy again in 2027 (5) History of lung cancer: Code(s): Z85.118 - Personal history of other malignant neoplasm of bronchus and lung Category: Medical Plan: Gets yearly lung cancer screening, followed by Dr. Flaherty, his masonry teacher at [facility] (6) Lumbar degenerative disc disease: Code(s): M51.369 - Other intervertebral disc degeneration, lumbar region without mention of lumbar back pain or lower extremity pain Category: Medical Qualifiers: Disc-related pain type: discogenic back pain only Qualified Code(s): M51.360 - Other intervertebral disc degeneration, lumbar region with discogenic back pain only Plan: Currently followed by physiatry (7) COPD (chronic obstructive pulmonary disease): Code(s): J44.9 - Chronic obstructive pulmonary disease, unspecified Category: Medical Qualifiers: COPD type: emphysema Emphysema type: unspecified Qualified Code(s): J43.9 - Emphysema, unspecified Plan: Followed by Dr. Flaherty, currently on Trelegy, Ventolin inhaler , and home oxygen. Gets yearly lung cancer screening (8) Cigarette smoker motivated to quit: Code(s): F17.210 - Nicotine dependence, cigarettes, uncomplicated Plan: Prescription sent for nicotine patch, given directions on proper use, will see her for follow-up in 4 weeks Medications: New nicotine Remove at Bedtime, rotate take sites of application 1 patch transdermal DAILY 28 ea 0RF
[2025-01-29 08:53] VITALS: BP 100/70; PULSE 86; RESP 16; TEMP 36.4; O2SAT 94; BMI 18.0
--- OUTSIDE RECORDS SUMMARY | 2025-01-29 09:09 | XMS_ITS | Patient Health Record ---
Author Organization [facility] Address [address] [place] [address] Care Team Providers Care Telemetry Nurse Name Role Phone Lary (RETIRED) Jorge EDMOND Primary Care Provide r Unavailable Steve Schmidt Jr Unavailable [phone] Reason For Referral No Information Medications Medication SIG (Take, Route, Fr equency, Duration) Notes Start Date End Date Status Abilify 2mg Active Chantix Active Baclofen 10mg Active Qual-Tussin Active Spiriva HandiHaler A ctive Simvastatin 10mg Act kenrick Combivent Active Tylenol with Codeine #3 Active traMADol HCl Active Alendronate Sodium 70mg Active Social History Section Notes: She quit smoking 3 weeks ago , alcohol use is occasional. Problems Problem Type SNOMED Code ICD Code Onset Dates Problem Status W/U Status Risk Notes Problem Screening for malignant neoplasm of colon (259288769) Special screening for malignant neoplasms, colon (V76.51) Active confirmed Plan Of Treatment No Information Insurance Providers Payer Name Payer Address Payer Phone Subscriber Number Group Number Insured Name Patient Relationship to Insured Coverage Start Date Coverage End Date MEDICAID OF [employer] [address] [place] [id number] CARLOTA ZELAYA Self - patient is the insured Medical (General) History Medical History History ICD Code depression osteoporosis muscle spasms COPD elevated cholesterol back pain degenerative joint disease involving the back Surgical History Surgery Date(Month/Year) cervical disc fusion
--- OUTSIDE RECORDS SUMMARY | 2025-01-29 09:09 | XMS_ITS | Clinical Summary ---
Author Organization [employer] Address [address] [place] [address] Care Team Providers Care Teacher Vocal Name Role Phone Unavailable Primary Care Provider [...] 20 tablet 5 Active ibuprofen 400 MG tabletIndication s:History of tooth extraction, unspecified edentulism class Take 1 tablet (400 mg) by mouth every 6 (six) hours if needed for moderate pain for up to 20 doses. 20 tablet 5 Active acetaminophen (Tylenol) 500 MG tabletIndication s:History of tooth extraction, unspecified edentulism class Take 1 tablet (500 mg) by mouth every 6 (six) hours if needed for mild pain for up to 20 doses. 20 tablet 5 Active ibuprofen 400 MG tabletIndication s:History of tooth extraction, unspecified edentulism class Take 1 tablet (400 mg) by mouth every 6 (six) hours if needed for moderate pain for up to 20 doses. 20 tablet 5 Active acetaminophen (Tylenol) 500 MG tabletIndication s:History of tooth extraction, unspecified edentulism class Take 1 tablet (500 mg) by mouth every 6 (six) hours if needed for mild pain for up to 20 doses. 20 tablet 5 Active Active Problems Problem Noted Date [...] CT scan which was performed at [facility] In July of 2023 shows [...] Encounters Date Type Department Care Team Description 01/15/2025 11:00 AM EST Office Visit [facility] [address] [place] [address] Rip Noriega DMD Edentulism (Primary Dx) 12/25/2024 9:00 AM EST Office Visit [facility] [address] [place] [address] Rip Noriega DMD History of tooth extraction, unspecified edentulism class (Primary Dx); Periodontal disease; Dental caries 12/05/2024 10:00 AM EDT Office Visit [facility] [address] [place] [address] Rip Noriega DMD Dental caries (Primary Dx); Periodontal disease; History of tooth extraction, unspecified edentulism class 11/22/2024 10:45 AM EDT Office Visit [facility] [address] [place] [address] Rip Noriega DMD Dental abscess (Primary Dx) 11/01/2024 1:00 PM EDT Office Visit [facility] [address] [place] [address] Ruddy Claudio DDS from Last 3 Months [...] Sign Reading Time Taken Comments Blood Pressure 90/70 12/25/2024 9:17 AM EST Pulse - - Temperature - - Respiratory Rate - - Oxygen Saturation - - Inhaled Oxygen Concentration - - Weight - - Height - - Body Mass Index - - Plan of Treatment Upcoming Encounters Date Type Department Care Team (Late st Contact Info) Description 02/11/2025 8:00 AM EST Office Visit [facility] [address] [place] [address] iRp Noriega, MARQUISE [address] [place] [address] Health Maintenance Due Date Last Done Comments CT Colonography 1954 Colonoscopy 1954 Colorectal Cancer Screening 1954 Dental Prophylaxis 1954 Dental X-Ray: Bitewings 1954 Depression Screening 1954 FIT DNA/Cologuard 1954 FIT 1954 FOBT 1954 Lipid Panel 1954 SDOH Screening 1954 Sigmoidoscopy 1954 Alcohol/Substance Use Screening 1966 Hepatitis C Screening 1972 DTaP/Tdap/Td Vaccines (1 - Tdap) 1973 Mammogram 1994 RSV Patients and Patients Aged 60 years or older (1 - Risk 50-74 years 1-dose series) 2004 Zoster Vaccines (3 of 3) 07/09/2018 05/14/2018, 09/07 COVID-19 Vaccine ( season) 2024 05/15/2021, 11/15/2020, 05/17/2020, Additional history exists Influenza Vaccine (#1) 2024 , 11/17/2016, 12/10/2015, Additional history exists Dental Oral Exam 07/17/2025 01/15/2025 Tobacco Screening 01/15/2026 01/15/2025 Dental X-Ray: Full Mouth 11/03/2027 11/01/2024 Pneumococcal [...] PRESENTATION, DETAILED AND EXTENSIVE TREATMENT PLANNING Routine 01/15/2025 11:00 AM EST Edentulism COMPREHENSIVE ORAL EVALUATION - NEW OR ESTABLISHED PATIENT Routine 01/15/2025 11:00 AM EST Edentulism CASE PRESENTATION, DETAILED AND EXTENSIVE TREATMENT PLANNING Routine 12/25/2024 9:00 AM EST Periodontal disease Dental caries 11 EXTRACTION, ERUPTED TOOTH OR EXPOSED ROOT (ELEVATION/FORCEPS REMOVAL) Routine 12/25/2024 9:00 AM EST Periodontal disease Dental caries 15 EXTRACTION, ERUPTED TOOTH OR EXPOSED ROOT (ELEVATION/FORCEPS REMOVAL) Routine 12/25/2024 9:00 AM EST Periodontal disease Dental caries 4 EXTRACTION, ERUPTED TOOTH OR EXPOSED ROOT (ELEVATION/FORCEPS REMOVAL) Routine 12/25/2024 9:00 AM EST Periodontal disease Dental caries 5 EXTRACTION, ERUPTED TOOTH OR EXPOSED ROOT (ELEVATION/FORCEPS REMOVAL) Routine 12/25/2024 9:00 AM EST Periodontal disease Dental caries 6 EXTRACTION, ERUPTED TOOTH OR EXPOSED ROOT (ELEVATION/FORCEPS REMOVAL) Routine 12/25/2024 9:00 AM EST Periodontal disease Dental caries 7 EXTRACTION, ERUPTED TOOTH OR EXPOSED ROOT (ELEVATION/FORCEPS REMOVAL) Routine 12/25/2024 9:00 AM EST Periodontal disease Dental caries 12 EXTRACTION, ERUPTED TOOTH OR EXPOSED ROOT (ELEVATION/FORCEPS REMOVAL) Routine 12/25/2024 9:00 AM EST Periodontal disease Dental caries 8 EXTRACTION, ERUPTED TOOTH OR EXPOSED ROOT (ELEVATION/FORCEPS REMOVAL) Routine 12/25/2024 9:00 AM EST Periodontal disease Dental caries 1 EXTRACTION, ERUPTED TOOTH OR EXPOSED ROOT (ELEVATION/FORCEPS REMOVAL) Routine 12/25/2024 9:00 AM EST Periodontal disease Dental caries CASE PRESENTATION, DETAILED AND EXTENSIVE TREATMENT PLANNING [...] AM EDT from Last 3 Months Insurance [facility] MEDICA[facility] STAND AD[place] JOAN MARRERO [id number] [place] [address]
--- OUTSIDE RECORDS SUMMARY | 2025-01-29 09:09 | XMS_ITS | Clinical Summary ---
Author Organization [facility] Address [address] [place] [phone] Phone Care Team Providers Care Allergy Nurse Name Role Phone Donna Romero MD Primary Care Provider [phone] Allergies No known active allergies Medications nabumetone (RELAFEN) 500 mg tablet Take 1 tablet (500 mg total) by mouth 2 (two) times a day. Active omeprazole (PriLOSEC) [address] capsule Take 1 capsule (20 mg total) by mouth 1 (one) time each day. 09/23/19 24 Active Oxygen Therapy (O2) gas 2 L/min if needed. Inhale into the lungs. Oxygen Historical (HISTORICAL OXYGEN) Active romosozumab-aqq g (Evenity) Inject 2.34 mL (210 mg total) under the skin every 30 (thirty) days. Active ipratropium-alb uteroL (DUONEB) 0.5-2.5 mg/3 mL nebulizer solutionIndicat ions:COPD exacerbation (CMS/HCC V24, CMS/HCC V28) Take 3 mL by nebulization 4 (four) times a day if needed for wheezing or shortness of breath for up to 7 days. 84 mL 03/25/19 25 Active atorvastatin (LIPITOR) 10 mg tablet Take 1 tablet (10 mg total) by mouth at bedtime. 04/05/19 25 Active fluticasone-ume clidinium-vilan terol (Trelegy Ellipta) 200-62.5-25 mcg inhaler Inhale 1 puff (200 mcg total) by mouth 1 (one) time each day. Rinse mouth with water after use to reduce aftertaste and incidence of candidiasis. Do not swallow. 1 each 04/13/19 25 2025 Active magnesium oxide (MAG-OX) 400 mg magnesium [...] a day before meals. 270 each 3 06/26/19 25 2025 Active albuterol HFA (PROAIR HFA ; PROVENTIL HFA ; VENTOLIN HFA) 90 mcg/actuation inhaler Inhale 2 puffs by mouth every 6 (six) hours if needed for wheezing. 6.7 g 08/17/19 25 2025 Active nicotine (NICODERM CQ) 21 mg/[address] 1 patch on the skin 1 (one) time each day at the same time. 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 She is advised to call the office with any questions or concerns. Shortness of breath 06/20/2024 Weakness generalized 04/05/2024 Hypotension 04/04/2024 Assessment & Plan (12/18/2024 1:35 PM EST): Patient is doing well on midodrine. Continue with 5 mg twice daily. Assessment & Plan (06/25/2024 1:20 PM EDT): [...] Encounters Date Type Department Care Team Description 01/22/2025 9:30 AM EST Office Visit Pulmonology - [facility] [address] [place] [address] Ana Flaherty MD Nocturnal hypoxia (Primary Dx); Chronic obstructive pulmonary disease, unspecified COPD type (CMS/HCC V24, CMS/HCC V28); Tobacco abuse 12/18/2024 8:40 AM EST Office Visit [facility] Card[facility] [address] [place] [address] Sandra Malone NP Hypotension, unspecified hypotension type (Primary Dx) from Last 3 Months Surgical [...] Not Answered Alcohol Use Standard Drinks/Week Comments No 0 [...] for your loved ones. For example, child and family services worker or elderly care for an older adult? [...] Orientation Straight 03/24/2024 3: 15 PM EST Last Filed Vital Signs Vital Sign Reading Time Taken Comments Blood Pressure 88/52 01/22/2025 9:28 AM EST Pulse 89 01/22/2025 9:28 AM EST Temperature 36.2 C (97.2 F) 01/22/2025 9:28 AM EST Respiratory Rate 20 01/22/2025 9:28 AM EST Oxygen Saturation 95% 01/22/2025 9:28 AM EST Inhaled Oxygen Concentration - - Weight 39.5 kg (87 lb) 01/22/2025 9:28 AM EST Height 149.9 cm (4' 11 ) 01/22/2025 9:28 AM EST Body Mass Index 17.57 01/22/2025 9:28 AM EST Plan of Treatment Upcoming Encounters Date Type Department Care Team (Late st Contact Info) Description 07/23/2025 9:45 AM EDT Office Visit Pulmonology - [address] [place] [address] Ana Flaherty MD [address] [place] [phone] Health Maintenance Due Date Last Done Comments [...] to complete this topic Insurance MEDICAID - [place] MEDICARE Advance Directives [...] currently active code status orders. Care Teams Allergy Nurse Relationship Specialty Start Date End Date Donna Romero MD [address] [place] [address] PCP - General Internal Medicine 10/30/18
== END 2025-01-29 09:24 | disposition home or self-care (01) ==
LOC: HO.HMCC 08:48
PROVIDERS: PCP Internal Medicine; Visit Provider Internal Medicine
DX: Z00.01 Encounter for general adult medical examination with abnormal findings (principal); M81.0 Age-related osteoporosis without current pathological fracture; J43.9 Emphysema, unspecified; F17.210 Nicotine dependence, cigarettes, uncomplicated; E78.5 Hyperlipidemia, unspecified; M51.360 Other intervertebral disc degeneration, lumbar region with discogenic back pain only; Z85.118 Personal history of other malignant neoplasm of bronchus and lung; Z86.0101 Personal history of adenomatous and serrated colon polyps

== ENCOUNTER → 2025-01-29 08:47 | Outpatient (BNVA) | payer MEDICARE, MEDICAID, SELFPAY | PROVIDERS: PCP Internal Medicine; Visit Provider Internal Medicine | DX: Z00.01 Encounter for general adult medical examination with abnormal findings (principal); E78.5 Hyperlipidemia, unspecified; M81.0 Age-related osteoporosis without current pathological fracture; Z86.0101 Personal history of adenomatous and serrated colon polyps; Z85.118 Personal history of other malignant neoplasm of bronchus and lung; M51.360 Other intervertebral disc degeneration, lumbar region with discogenic back pain only; J43.9 Emphysema, unspecified; F17.210 Nicotine dependence, cigarettes, uncomplicated | CPT/HCPCS: 96127; 99397 ==